=== PATIENT | male | born 1950 | race Caucasian/White ===

== ENCOUNTER → 2017-02-25 | Outpatient (CLI) | payer MEDICARE ==
[2017-02-25 15:49] VITALS: BP 137/72; PULSE 89; RESP 20; TEMP 99.6; BMI 43.0
--- NOTE | 2017-02-25 16:16 | P.HPBAR ---
Bariatric H&P - History & Physicial H&P Date: 02/25/17 History & Physicial: Visit/CC: wants lap band Patient initial contact: Initial weight: 132.993 kg Initial weight in pounds: 293.20 Height: 5 ft 9.25 in Initial BMI: 43.0 Last weight: Current weight: 132.993 kg Current weight in pounds: 293.20 Current BMI: 43.0 [place] body weight (based on NIH guidelines): 73.255 kg Excess body weight loss: 0.0% The patient is a 66 year-old M who presents for Bariatric Assessment. Patient here today as a new patient bariatric evaluation. He went to a recent seminar. He was initially interested in the lap band area he has tried a variety of different weight loss programs. More recently he is considering the sleeve gastrectomy. The patient suffers from arthritis chronic back pain and hypertension hypercholesterolemia and type 2 diabetes. The patient has a history of cardiac cath with stent placement. No history of DVT or dysphagia in the past. Review of Systems The patient denies any acute changes in vision or hearing, no dysphagia or odynophagia, no chest pain or shortness of breath, no dysuria or hematuria, no headache, no runny nose, no rectal bleeding or melena, no unexplained weight loss Past Medical History Past Medical History: Hypertension, Osteoarthritis (OA) Additional Past Medical History / Comment(s): L4-5 chronic arthritis History of Any Multi-Drug Resistant Organisms: None Reported Past Surgical History: Appendectomy Additional Past Surgical History / Comment(s): appendectomy at age 16, cardiac stents x2 placed in 2012, colonoscopy October 2016 Past Anesthesia/Blood Transfusion Reactions: No Reported Reaction Past Psychological History: No Psychological Hx Reported Smoking Status: Former smoker Past Alcohol Use History: Rare Past Drug Use History: None Reported Surgical - Exam Vital Signs Temp Pulse Resp BP 99.6 F 89 20 137/72 02/25/17 15:44 02/25/17 15:44 02/25/17 15:44 02/25/17 15:44 Physical exam: General: Well-developed, well-nourished HEENT: Normocephalic, sclerae nonicteric Abdomen: Nontender, nondistended Extremities: No edema Neuro: Alert and oriented Bariatric Assessment & Plan (1) Morbid obesity Narrative/Plan: The patient's initially was concerned about the more invasive procedures and was interested in lap band placement however after the patient I discussed the long-term risks he is leaning toward sleeve gastrectomy. He plans to discuss this further with his family and also his primary care physician. He also has a close friend who recently had bariatric surgery outside of town and he is going to talk to that person to see better what procedure they had performed. The patient I will regroup following that. Preoperative cardiac clearance will be required at some point. Status: Acute Bariatric Checklist Checklist: Plan: Checklist: EGD: 1. Hiatal hernia: 2. H. Pylori: HgbA1c: Vitamin D: Smoking: Former smoker Primary care physician referral: Dr Palomares in [place] Psychiat[facility] clearance: Cardiology clearance: Sleep study: Diet journal: VTE risk score: VTE risk level: Rehab needs at discharge:
== END | disposition home or self-care (01) ==
LOC: BARWHC3 15:30
PROVIDERS: ATTEND Surgery
DX: Z48.815 Encounter for surgical aftercare following surgery on the digestive system (principal); E66.01 Morbid (severe) obesity due to excess calories; Z87.891 Personal history of nicotine dependence; Z98.84 Bariatric surgery status
CPT/HCPCS: 99201

== ENCOUNTER → 2017-05-25 | Outpatient (CLI) | payer MEDICARE ==
[2017-05-25 16:31] LABS: CH 28.9; CHCM 30.7; HCT 47.3 % (39.0-53.0); HDW 2.72; HGB 14.9 gm/dL (13.0-17.5); Hypochromasia Moderate; MCH 29.9 pg (25.0-35.0); MCHC 31.6 g/dL (31.0-37.0); MCV 94.7 fL (80.0-100.0); Mean Platelet Volume 7.1; RBC 4.99 m/uL (4.30-5.90); RDW 14.8 % (11.5-15.5); WBC 11.3 k/uL (3.8-10.6)
[2017-05-25 16:53] LABS: Anion Gap 12 mmol/L; Blood Urea Nitrogen 34 mg/dL (9-20); Carbon Dioxide 25 mmol/L (22-30); Chloride 101 mmol/L (98-107); Non-African American GFR(MDRD) >60 (>60 ml/min/1.73 sqM); Potassium 5.5 mmol/L (3.5-5.1); Sodium 138 mmol/L (137-145)
== END | disposition home or self-care (01) ==
LOC: LABPAT 16:03
PROVIDERS: ATTEND Internal Medicine Cardiovascular Disease
DX: Z01.812 Encounter for preprocedural laboratory examination (principal); I25.10 Atherosclerotic heart disease of native coronary artery without angina pectoris
CPT/HCPCS: 36415; 80051; 82565; 84520; 85027; 86850; 86900; 86901; 86920; 93923

== ENCOUNTER 2017-05-26 06:22 | Day surgery (SDC) | payer MEDICARE ==
[2017-05-26] MEDS ORDERED: ASPIRIN 325 MG TAB PO STA (06:27)
[2017-05-26] MEDS ORDERED: ATORVASTATIN 80 MG TAB PO STA (06:27)
[2017-05-26] MEDS ORDERED: NITROGLYCERIN SL TABS 0.4 MG TAB SUBLINGUAL PRN (06:27)
[2017-05-26] MEDS ORDERED: ALPRAZolam 0.5 MG TAB PO PRN (06:27)
[2017-05-26] MEDS ORDERED: ALPRAZolam 0.25 MG TAB PO PRN (06:27)
[2017-05-26] MEDS ORDERED: SODIUM CHLORIDE 0.9% 1,000 ML in EMPTY BAG 1 BAG IV ONE (06:27)
[2017-05-26] MEDS ORDERED: IV FLUID CONTINUATION 1,000 ML IV ONE (07:23)
[2017-05-26] MEDS ORDERED: fentaNYL (PF) 50 MCG/ML 2 ML AMP ONE (07:34)
[2017-05-26] MEDS ORDERED: MIDAZOLAM 2 MG/2 ML VIAL ONE (07:34)
[2017-05-26] MEDS ORDERED: ASPIRIN 325 MG TAB ONE (07:35)
[2017-05-26] MEDS ORDERED: diphenhydrAMINE 50 MG/ML 1 ML VIAL ONE (07:37)
[2017-05-26] MEDS ORDERED: ASPIRIN 325 MG TAB PO ONE (07:38)
[2017-05-26] MEDS ORDERED: diphenhydrAMINE 50 MG/ML 1 ML VIAL IVP ONE (07:40)
[2017-05-26] MEDS ORDERED: LIDOCAINE 2% INJ 20 MG/ML SQ ONE (07:41)
[2017-05-26] MEDS ORDERED: MIDAZOLAM 2 MG/2 ML VIAL IV ONE (07:41)
[2017-05-26] MEDS ORDERED: IODIXANOL 320 MG/ML 100 ML INTRAARTER ONE (08:00)
[2017-05-26 08:07] LABS: Potassium 5.1 mmol/L (3.5-5.1)
[2017-05-26] MEDS ORDERED: RX INFO: IV CONTRAST WAS GIVEN 1 EACH MISC MISCELLANE PRN (08:12)
[2017-05-26] MEDS ORDERED: SODIUM CHLORIDE 0.9% 1,000 ML IV SCH (08:15)
[2017-05-26 08:49] VITALS: RESP 18
[2017-05-26] MEDS: INSULIN LISPRO (humaLOG) 300 UNIT/3 ML VIAL SQ SCH ×2 (08:53→14:07)
[2017-05-26 09:06] LABS: Glucose,Whole Blood 294 mg/dL (75-99)
--- NOTE | 2017-05-26 09:10 | LTR ---
DATE OF SERVICE: 05/26/2017 RE: Blas Heredia Dear Dr. Palomares; I performed cardiac catheterization on Blas Heredia. The detail catheterization note is enclosed for your records. In brief, the cardiac catheterization reveals 3-vessel coronary artery disease and patient will be referred to bypass surgery. Thank you for giving us the privilege to participate in this pleasant gentleman. Sincerely, Tate EVANS / TIEN: [id number] /
--- NOTE | 2017-05-26 09:10 | CC ---
CARDIAC CATHETERIZATION REPORT CARDIAC CATHETERIZATION: INDICATION: Unstable angina. This is a 67-year-old gentleman with history of coronary artery disease, status post angioplasty of right coronary artery in 2013 who presented to me yesterday with symptoms of unstable angina. EKG was normal. Echo showed normal LV systolic function. I advised him to undergo cardiac catheterization and brought him in this morning. Patient had been explained of risks, benefits and alternatives, understood and accepted. His creatinine is normal but BUN is elevated. The potassium is 5.5. We hydrated him through cardiac cath. His potassium elevation may be related to the lisinopril or could be due to hemolysis. I repeated the labs this morning. PROCEDURE NOTE: After obtaining informed consent, left heart catheterization and coronary angiogram and LV gram are performed via the right femoral artery using standard Coty catheters. A femoral angiogram was performed and decision was made for manual hemostasis secondary to extensive atherosclerotic plaque in the common femoral artery. FINDINGS: 1. HEMODYNAMICS: Left ventricular end-diastolic pressure is 12 mm. There is no significant gradient across aortic valve. 2. LEFT VENTRICULOGRAM: Left ventriculogram is performed in TINAJERO position. Shows normal left ventricular size and systolic function with an ejection fraction of 65%. 3. ANGIOGRAPHIC DATA:. 4. LEFT MAIN CORONARY ARTERY: Left main coronary artery appears calcified as are all the 3 coronaries but is free of significant stenosis. Divides into circumflex coronary artery and left anterior descending coronary artery. 5. Circumflex coronary artery is subtotally occluded in its proximal part. 6. LAD which is diffusely diseased shows a 70% stenosis in its mid portion and there is a 70% stenosis involving the large diagonal branch. 7. Right coronary artery is a large dominant vessel but it appears heavily calcified and shows diffuse multiple ectatic lesions. At its worst, there is an 80% to 90% stenosis in the distal RCA and just as it bifurcates into PDA and PLV. CONCLUSION: 1. Three vessel coronary artery disease as described above. 2. Normal left ventricular systolic function. PLAN: I have asked Dr. Desai, the cardiothoracic surgeon, to evaluate the patient and advise on bypass surgery. The patient is to undergo bypass surgery tomorrow. Will keep him here. If not, will discharge him home and bring him back. Patient is currently on a beta claudette, nitrates. I will put him on an aspirin and statin. I am going to hold the lisinopril that he is currently on because of the hyperkalemia. MMODL / IJN: [id number] /
[2017-05-26] MEDS ORDERED: MD COMMUNICATION TO PHARMACY 1 EACH MISC PO ONE (09:23)
--- NOTE | 2017-05-26 10:16 | CC ---
CARDIAC CATHETERIZATION REPORT ADDENDUM: Patient received moderate conscious sedation. Total sedation time was 25 minutes. MMODL / IJN: [id number] /
[2017-05-26 10:29] LABS: INR 1.1 (<1.2); Partial Thromboplastin Time 23.5 sec (22.0-30.0); Prothrombin Time 10.9 sec (9.0-12.0)
[2017-05-26 10:36] LABS: ALT 33 U/L (21-72); AST 15 U/L (17-59); Alkaline Phosphatase 64 U/L (38-126); Anion Gap 9 mmol/L; Blood Urea Nitrogen 32 mg/dL (9-20); Calcium 9.9 mg/dL (8.4-10.2); Carbon Dioxide 26 mmol/L (22-30); Chloride 100 mmol/L (98-107); Glucose 325 mg/dL (74-99); Non-African American GFR(MDRD) >60 (>60 ml/min/1.73 sqM); Potassium 5.1 mmol/L (3.5-5.1); Sodium 135 mmol/L (137-145); Total Bilirubin 0.4 mg/dL (0.2-1.3); Total Protein 7.4 g/dL (6.3-8.2)
[2017-05-26 11:23] LABS: Appearance,Urine Clear (Clear); Bilirubin,Urine Negative (Negative); Glucose,Urine (UA) 4+ (Negative); Ketones,Urine Negative (Negative); Leukocyte Esterase,Urine Negative (Negative); Nitrite,Urine Negative (Negative); PH, Urine 5.5 (5.0-8.0); Protein,Urine Negative (Negative); Specific Gravity,Urine 1.038 (1.001-1.035); UA Billing (MACRO vs. MICRO) CHEM; Urobilinogen,Urine <2.0 mg/dL (<2.0)
--- NOTE | 2017-05-26 11:47 | P.GSCN ---
<Palmira Phipps - Last Filed: 05/26/17 11:23> History of Present Illness Consult date: 05/26/17 Reason for Consult: Coronary artery disease, recommendations for surgical revascularization. Requesting physician: Tate Sarmiento History of present illness: This 67-year-old gentleman with a past medical history of coronary artery disease with previous stent placement, hypertension, type 2 diabetes, COPD, remote smoking history, obesity, and strong family history of coronary artery disease presented to Dr. Sarmiento's office after noticing a recent increase in exertional chest pain relieved with sublingual nitro. He was scheduled for heart catheterization this morning which demonstrated the left anterior descending artery with diffuse disease with 70% stenosis in the midportion and 70% stenosis in a large diagonal branch, proximal circumflex artery with subtotal occlusion, and a heavily calcified right coronary artery with an 80-90 % stenosis in the distal RCA. Dr. Desai was asked to consult regarding the possibility of surgical revascularization. Review of Systems 14 point review systems was completed and was negative except as noted. - Constitutional Constitutional Comment(s): Patient is actively trying to lose weight, previously was 315 pounds, down to 289 pounds currently. Prior to these episodes of chest pain the patient was actively pursuing possible gastric bypass surgery. Reports weight loss - Cardiovascular Reports as per HPI, Reports chest pain - Allergic/Immunologic Reports seasonal allergies Past Medical History Past Medical History: Asthma, Coronary Artery Disease (CAD), Hypertension, Myocardial Infarction (CT), Osteoarthritis (OA) Additional Past Medical History / Comment(s): L4-5 chronic arthritis History of Any Multi-Drug Resistant Organisms: None Reported Past Surgical History: Appendectomy, Heart Catheterization With Stent Additional Past Surgical History / Comment(s): appendectomy at age 16, cardiac stents x2 placed in 2012, colonoscopy October 2016 Past Anesthesia/Blood Transfusion Reactions: No Reported Reaction Past Psychological History: No Psychological Hx Reported Smoking Status: Former smoker Past Alcohol Use History: Rare Past Drug Use History: None Reported - Past Family History Father Family Medical History: Coronary Artery Disease (CAD) Medications and Allergies Home Medications Medication Instructions Recorded Confirmed Type Atorvastatin [Lipitor] 10 mg PO DAILY 05/27/17 05/31/17 History Metoprolol Tartrate [Lopressor] 50 mg PO DAILY 05/27/17 05/31/17 History Nitroglycerin Sl Tabs [Nitrostat] 0.4 mg SUBLINGUAL Q5M PRN 05/27/17 05/31/17 History Umeclidinium Brm/Vilanterol Tr 1 puff INHALATION RT-DAILY 05/27/17 05/31/17 History [Anoro Ellipta 62.5-25 Mcg INH] Mupirocin 2% Nasal Oint [Bactroban 1 applic NASAL BID 05/28/17 05/31/17 History 2% Nasal Oint] Aspirin [Adult Low Dose Aspirin EC] 81 mg PO ONCE 05/31/17 05/31/17 History Isosorbide Mononitrate ER [Imdur] 30 mg PO DAILY 05/31/17 05/31/17 History Allergies Allergy/AdvReac Type Severity Reaction Status Date / Time Penicillins Allergy Rash/Hives Verified 05/31/17 05:59 Sulfa (Sulfonamide Allergy Rash/Hives Verified 05/31/17 05:59 Antibiotics) tetracycline Allergy Rash/Hives Verified 05/31/17 05:59 aspirin AdvReac Rash/Hives Verified 05/31/17 05:59 Surgical - Exam Vital Signs Pulse Resp BP Pulse Ox 68 16 136/79 96 05/26/17 06:55 05/26/17 06:55 05/26/17 06:55 05/26/17 06:55 - General well developed, well nourished, no distress, obese - Eyes PERRL, normal ocular movement - ENT no hearing loss - Neck no masses, no bruits, trachea midline - Respiratory normal expansion, normal respiratory effort, clear to auscultation - Cardiovascular Normal sinus rhythm on telemetry. Palpable pulses bilaterally. No edema present. No varicosities noted. Rhythm: regular Heart Sounds: normal: S1, S2 - Abdomen Abdomen: soft, non tender, bowel sounds - Genitourinary Deferred - Rectum Deferred - Integumentary no rash, no growths - Neurologic normal coordination, normal sensation - Psychiatric oriented to time, oriented to person, oriented to place, speech is normal, memory intact Results - Labs 05/26/17 09:55 Abnormal Lab Results - Last 24 Hours (Table) 05/26/17 05/26/17 05/26/17 Range/Units 07:00 08:47 09:55 Sodium 135 L (137-145) mmol/L BUN 32 H (9-20) mg/dL Glucose 325 H (74-99) mg/dL POC Glucose (mg/dL) 294 H (75-99) mg/dL AST 15 L (17-59) U/L Triglycerides 470 H (<150) mg/dL Cholesterol 216 H (<200) mg/dL HDL Cholesterol 32 L (40-60) mg/dL Diabetes panel 05/26/17 05/26/17 Range/Units 07:00 09:55 Sodium 135 L (137-145) mmol/L Potassium 5.1 5.1 (3.5-5.1) mmol/L Chloride 100 (98-107) mmol/L Carbon Dioxide 26 (22-30) mmol/L BUN 32 H (9-20) mg/dL Creatinine 0.96 (0.66-1.25) mg/dL Glucose 325 H (74-99) mg/dL Calcium 9.9 (8.4-10.2) mg/dL AST 15 L (17-59) U/L ALT 33 (21-72) U/L Alkaline Phosphatase 64 (38-126) U/L Total Protein 7.4 (6.3-8.2) g/dL Albumin 3.8 (3.5-5.0) g/dL Triglycerides 470 H (<150) mg/dL HDL Cholesterol 32 L (40-60) mg/dL Thyroid panel 05/26/17 Range/Units 09:55 TSH 0.871 (0.465-4.680) mIU/L Calcium panel 05/26/17 Range/Units 09:55 Calcium 9.9 (8.4-10.2) mg/dL Albumin 3.8 (3.5-5.0) g/dL Pituitary panel 05/26/17 05/26/17 Range/Units 07:00 09:55 Sodium 135 L (137-145) mmol/L Potassium 5.1 5.1 (3.5-5.1) mmol/L Chloride 100 (98-107) mmol/L Carbon Dioxide 26 (22-30) mmol/L BUN 32 H (9-20) mg/dL Creatinine 0.96 (0.66-1.25) mg/dL Glucose 325 H (74-99) mg/dL Calcium 9.9 (8.4-10.2) mg/dL TSH 0.871 (0.465-4.680) mIU/L Adrenal panel 05/26/17 05/26/17 Range/Units 07:00 09:55 Sodium 135 L (137-145) mmol/L Potassium 5.1 5.1 (3.5-5.1) mmol/L Chloride 100 (98-107) mmol/L Carbon Dioxide 26 (22-30) mmol/L BUN 32 H (9-20) mg/dL Creatinine 0.96 (0.66-1.25) mg/dL Glucose 325 H (74-99) mg/dL Calcium 9.9 (8.4-10.2) mg/dL Total Bilirubin 0.4 (0.2-1.3) mg/dL AST 15 L (17-59) U/L ALT 33 (21-72) U/L Alkaline Phosphatase 64 (38-126) U/L Total Protein 7.4 (6.3-8.2) g/dL Albumin 3.8 (3.5-5.0) g/dL - Imaging Chest x-ray: pending CT scan - chest: pending Additional studies: Cardiac catheterization films reviewed. Assessment and Plan (1) Coronary artery disease Status: Acute (2) Hypertension Status: Acute (3) Type 2 diabetes mellitus Status: Acute (4) Tobacco dependence in remission Status: Acute (5) Family history of coronary artery disease Status: Acute (6) Morbid obesity Status: Acute Plan: The patient was seen and examined with Dr. Desai in the Extended Stay Unit. Chart/diagnostics were reviewed. Cardiac catheterization films were reviewed with Dr. Sarmiento. Preoperative testing was ordered. Preoperative teaching was initiated. The patient is recommended to undergo coronary artery bypass graft surgery. All risks and benefits were explained in detail to the patient and his and they agreed to proceed with surgery. The patient will be discharged home from the Extended Stay Unit today after preoperative testing is completed, he is to undergo carotid Dopplers trauma Dr. Sarmiento's office, we will obtain the echo report from Dr. Sarmiento's office which was completed yesterday, and the plan at this time is for him to return to the hospital on Wednesday, 2016 for coronary artery bypass graft surgery. Recommend aspirin, statin, beta claudette upon discharge home today. Thank you Dr. Sarmiento for this consult. We look forward to working to the care of your patient. Time with Patient: Greater than 30 <Habib,Delvis - Last Filed: 05/31/17 17:05> Surgical - Exam Vital Signs Pulse Resp BP Pulse Ox 68 16 136/79 96 05/26/17 06:55 05/26/17 06:55 05/26/17 06:55 05/26/17 06:55 Results - Labs 05/26/17 09:55 Assessment and Plan Plan: The patient was seen and examined. I agree with the above assessment and plan. The patient is a 67-year-old male with a history of coronary artery disease who had a coronary stent in the past. He presents now with recurrent chest pain with activity. Cardiac catheterization revealed multivessel coronary artery disease. A coronary artery bypass was recommended. The risks, benefits , and alternatives to this procedure were discussed with the patient and his . All of their questions were answered. We will complete his necessary preoperative workup. He'll be discharged home today with plans for surgery on May 31.
[2017-05-26] MEDS ORDERED: HYDROmorphone 0.5 MG/0.5 ML SYRINGE IVP STA (11:51)
[2017-05-26] MEDS ORDERED: HYDROmorphone 0.5 MG/0.5 ML SYRINGE IVP ONE (11:55)
[2017-05-26 13:17] LABS: Hemoglobin A1C 10.1 % (4.2-6.1)
--- NOTE | 2017-05-26 14:01 | XR ---
EXAMINATION TYPE: XR chest 2V DATE OF EXAM: 05/26/2017 COMPARISON: NONE HISTORY: Preop for cardiac surgery. TECHNIQUE: Frontal and lateral views of the chest are obtained. FINDINGS: There is no focal air space opacity, pleural effusion, or pneumothorax seen. Flattening of the diaphragms on the lateral image may relate to degree of inspiration versus underlying pulmonary emphysema. Bridging osteophytes are seen of the thoracic spine, sequela of mild to moderate degenerat al disc disease. The cardiac silhouette size is upper limits of normal. The osseous structures are intact. IMPRESSION: No acute cardiopulmonary process.
[2017-05-26 14:25] LABS: Glucose,Whole Blood 323 mg/dL (75-99)
--- NOTE | 2017-05-26 14:37 | CT ---
EXAMINATION TYPE: CT chest wo con DATE OF EXAM: 05/26/2017 COMPARISON: NONE HISTORY: 67-year-old male Preoperative cardiac surgery TECHNIQUE: Contiguous axial scanning of the chest without IV contrast. Coronal and sagittal reconstru ctions performed. CT DLP: 1259.30 mGycm Automated exposure control for dose reduction was used. FINDINGS: The heart is normal size with trace pericardial fluid. Extensive coronary vessel calcifications are p resent. Ascending aorta is ectatic at 3.8 cm. Conventional arch vessel branching anatomy. Mild atheroscleroti c arch calcifications. Upper descending thoracic aorta is mildly aneurysmal at 3.3 cm. Lower descendi ng thoracic aorta is ectatic at 2.6 cm. Large caliber to the main right and left pulmonary arteries at 3.0 and 2.8 cm, respectively, suggesti ng underlying pulmonary arterial hypertension. No thoracic lymphadenopathy by CT size criteria. A 5 mm pulmonary nodule anterior right lower lung along the major fissure is a somewhat triangular ap pearance. Strandy atelectasis or scarring at the inferior lingula. No consolidation or pleural effusi on. Visualized upper abdomen shows low attenuation of the hepatic parenchyma and a couple hypodense lesio ns in the left kidney measuring up to 3.1 cm suggestive of cysts. Mild diverticulosis of the visualiz ed left hemicolon. Possible renal calculi or vascular calcifications in the visualized kidneys. Bones: Bridging anterior endplate spondylosis suggestive of DISH in the mid to lower thoracic spine. IMPRESSION: 1. ECTATIC THORACIC AORTA (ASCENDING 3.8 CM AND DESCENDING 3.3 CM). 2. CAD. 3. POSSIBLE UNDERLYING PULMONARY ARTERIAL HYPERTENSION. CLINICALLY CORRELATE. 4. A 5 MM PULMONARY NODULE ALONG THE MINOR FISSURE MAY REPRESENT A SUBPLEURAL LYMPH NODE GIVEN TRIANG ULAR APPEARANCE. A ONE-YEAR FOLLOW-UP CAN BE CONSIDERED.
[2017-05-26 14:55] VITALS: PULSE 77
[2017-05-26 17:16] VITALS: BP 130/70
[2017-05-27] MEDS ORDERED: ATORVASTATIN 40 MG TAB PO SCH (09:00)
--- NOTE | 2017-06-02 14:05 | P.VSCSTY ---
Greater Saphenous Vein Mapping This is bilateral lower extremity greater saphenous vein mapping. Date of service 05/26/2017 Vein quality and ultrasound appearance the vein at the right mid calf and below shows severe intimal thickening. Vein size groin right 6.6 x 5.8 groin left 1.1 x 6.9 High thigh right 6.7 x 5.6 high thigh left 6.8 x 5.8 Mid thigh right 4.3 x 3.7 mid thigh left 3.6 x 3.6 Above-knee right 4.5 x 3.6 above- knee left 3.8 x 3.3 Below knee right 3.3 x 3.6 below-knee left 4.1 x 3.6 Mid calf right [] mid calf left 4.1 x 2.7 Ankle right [] ankle left 2.0 x 3.3. Impression usable greater saphenous vein in the left leg throughout and in the right leg to just below the knee. Would not use any of the lower leg vein on the right..
--- NOTE | 2017-06-02 14:07 | P.ARTDOP ---
Arterial Doppler Bilateral radial artery studies: Doppler waveforms show no significant right to left or segmental gradients. On digital plethysmography with radial artery compression we find significant bilateral gradients. 66 mmHg Imaging shows them to be of excellent size. Radial artery is not usable secondary to inadequate collateralization.
== END 2017-05-26 17:00 | disposition home or self-care (01) ==
LOC: CATHCVL 06:22
PROVIDERS: ATTEND Internal Medicine Cardiovascular Disease
DX: I25.110 Atherosclerotic heart disease of native coronary artery with unstable angina pectoris (principal); I25.84 Coronary atherosclerosis due to calcified coronary lesion; I10 Essential (primary) hypertension; Z01.818 Encounter for other preprocedural examination; I70.201 Unspecified atherosclerosis of native arteries of extremities, right leg; E11.9 Type 2 diabetes mellitus without complications; E66.01 Morbid (severe) obesity due to excess calories; Z68.41 Body mass index [BMI] 40.0-44.9, adult; E78.2 Mixed hyperlipidemia; I77.810 Thoracic aortic ectasia; R91.1 Solitary pulmonary nodule; I25.2 Old myocardial infarction; Z95.5 Presence of coronary angioplasty implant and graft; Z82.49 Family history of ischemic heart disease and other diseases of the circulatory system; Z87.891 Personal history of nicotine dependence; Z79.82 Long term (current) use of aspirin; Z79.899 Other long term (current) drug therapy; Z88.6 Allergy status to analgesic agent; Z88.0 Allergy status to penicillin; Z88.2 Allergy status to sulfonamides; Z88.1 Allergy status to other antibiotic agents
CPT/HCPCS: 99152; 99153; 94150; 93458; 83880; 80061; 80053; 80074; 84443; 83036; 83735; 84132; 85610; 85730; 81003; 87070; 87086; 71020; 93930; 93970; 71250; C1894; C1769; J2001; J2250; J1200; Q9967; J1170; 86850; 86900; 86901; 86920

== ENCOUNTER 2017-05-31 05:36 | Inpatient (IN) | payer MEDICARE ==
[~2017-05-31 05:36] MED LIST: ALBUMIN HUMAN 25% 50 ML IV ONE; ALBUMIN HUMAN 5% 500 ML IVPB ONE; ATORVASTATIN 10 MG TAB PO ONE; CALCIUM CHLORIDE 100 MG/ML 10 ML SYRINGE IV ONE; CHLORHEXIDINE GLUCONATE 15 ML CUP MUCOUS MEM ONE; CLEVIDIPINE BUTYRATE 25 MG in EMPTY BAG 1 BAG IV ONE; DEXTROSE 5% IN WATER 1,000 ML with POTASSIUM CHLORIDE 110 MEQ, MAGNESIUM SULFATE 16 MEQ... IV ONE; DEXTROSE 5% IN WATER 1,000 ML with POTASSIUM CHLORIDE 25 MEQ, SODIUM CHLORIDE 4MEQ/ML V... IV ONE; DILTIAZEM 125 MG in SODIUM CHLORIDE 0.9% 100 ML IV ONE; HEPARIN SODIUM 1,000 UN/ML (10ML VL) IV ONE; HEPARIN SODIUM,PORCINE 5,000 UNIT in SODIUM CHLORIDE 0.9% 500 ML IV ONE; INSULIN REGULAR 100 UNIT in SODIUM CHLORIDE 0.9% 100 ML IV ONE; LACTATED RINGERS 1,000 ML IV ONE; MAGNESIUM SULFATE MG 500 MG/ML VIAL IV ONE; MANNITOL 25% 12.5 GM/50 ML VIAL IV ONE; METOPROLOL TARTRATE 12.5 MG TAB PO ONE; MUPIROCIN 2% OINT 22 GM TUBE NASAL ONE; NITROGLYCERIN SL TABS 0.4 MG TAB SUBLINGUAL ONE; NITROGLYCERIN-D5W PMX 25 MG/250 ML BTL IV ONE; NITROGLYCERIN-D5W PMX 50 MG in DEXTROSE/WATER 1 250ML.BAG IV ONE; NOREPINEPHRIN 4 MG-0.9% NS PMX 4 MG/250 ML ML IV ONE; PAPAVERINE 360 MG in SODIUM CHLORIDE 0.9% 90 ML IV ONE; PHENYLEPHRINE 40 MG in SODIUM CHLORIDE 0.9% 250 ML IV ONE; PHENYLEPHRINE-0.9% NACL SYG 1 MG/10 ML SYRINGE IV ONE; PROPOFOL 1,000 MG/100 ML VIAL IV ONE; PROTAMINE SULFATE 10 MG/ML 25 ML VIAL IV ONE; PROTAMINE SULFATE 250 MG in EMPTY BAG 1 BAG IV ONE; Pre Op ABX Message 1 EACH MISC MISCELLANE ONE; SODIUM BICARB 8.4% 50 ML SYR (1 MEQ/ML) IV ONE; SODIUM CHLORIDE 0.9% 1,000 ML IV ONE; TRANEXAMIC ACID 2,000 MG in SODIUM CHLORIDE 0.9% 180 ML IV ONE; ceFAZolin 1,000 MG in SODIUM CHLORIDE 0.9% IRRIGATIO 1,000 ML IRRIGATION ONE; ceFAZolin 2,000 MG in SODIUM CHLORIDE 0.9% 30 ML IVPB ONE; ceFAZolin 3 GM in SODIUM CHLORIDE 0.9% 30 ML IVPB ONE
[2017-05-31 06:18] LABS: Glucose,Whole Blood 233 mg/dL (75-99)
[2017-05-31] MEDS ORDERED: MAGNESIUM SULFATE 4 MEQ/ML 2 ML VIAL ONE (08:08)
[2017-05-31] MEDS ORDERED: fentaNYL (PF) 50 MCG/ML 50 ML VIAL ONE (08:08)
[2017-05-31] MEDS ORDERED: PROTAMINE SULFATE 10 MG/ML 25 ML VIAL IV ONE (08:08)
[2017-05-31] MEDS ORDERED: SUCCINYLCHOLINE CHLORIDE VIAL 200 MG/10 ML VIAL IV ONE (08:08)
[2017-05-31] MEDS ORDERED: HEPARIN SODIUM,PORCINE 5,000 UNIT/ML 1 ML VIAL ONE (08:08)
[2017-05-31] MEDS ORDERED: SODIUM CHLORIDE 0.9% IRRIG 1,000 ML BTL IRRIGATION ONE (08:08)
[2017-05-31] MEDS ORDERED: PROPOFOL 10 MG/ML 20 ML VIAL IV ONE (08:08)
[2017-05-31] MEDS ORDERED: fentaNYL (PF) 50 MCG/ML 2 ML AMP ONE (08:08)
[2017-05-31] MEDS ORDERED: PHENYLEPHRINE-0.9% NACL SYG 1 MG/10 ML SYRINGE ONE (08:08)
[2017-05-31] MEDS ORDERED: ELECTROLYTE-R (PH 7.4) 1,000 ML IV.SOLN IV ONE (08:08)
[2017-05-31] MEDS ORDERED: HEPARIN SODIUM,PORCINE 10,000 UNIT/ML 1 ML VIAL ONE (08:08)
[2017-05-31] MEDS ORDERED: SODIUM CHLORIDE 0.9% 250 ML BAG ONE (08:08)
[2017-05-31] MEDS ORDERED: MIDAZOLAM 2 MG/2 ML VIAL ONE (08:08)
[2017-05-31] MEDS ORDERED: TRANEXAMIC ACID 1,000 MG/10 ML VIAL ONE (08:08)
[2017-05-31] MEDS ORDERED: VECURONIUM 10 MG VIAL IV ONE (08:08)
[2017-05-31] MEDS ORDERED: SUFentanil 50 MCG/ML 2ML AMP ONE (08:08)
[2017-05-31 09:20] LABS: Glucose,Whole Blood 214 mg/dL (75-99)
[2017-05-31 10:24] LABS: Glucose,Whole Blood 230 mg/dL (75-99)
[2017-05-31 11:37] LABS: Glucose,Whole Blood 201 mg/dL (75-99)
[2017-05-31 11:37] LABS: Glucose,Whole Blood 241 mg/dL (75-99)
[2017-05-31 11:52] LABS: Glucose,Whole Blood 252 mg/dL (75-99)
[2017-05-31 12:36] LABS: Glucose,Whole Blood 229 mg/dL (75-99)
[2017-05-31 12:57] LABS: Glucose,Whole Blood 233 mg/dL (75-99)
[2017-05-31 14:06] LABS: Glucose,Whole Blood 214 mg/dL (75-99)
[2017-05-31 14:51] LABS: Glucose,Whole Blood 139 mg/dL (75-99)
[2017-05-31] MEDS ORDERED: METOCLOPRAMIDE 5 MG/ML 2 ML VIAL IVP PRN (15:06)
[2017-05-31] MEDS ORDERED: Magnesium Replacement Protocol 1 EACH MISC MISCELLANE PRN (15:06)
[2017-05-31] MEDS ORDERED: BENZOCAINE/MENTHOL LOZENG 1 EACH LOZENGE MUCOUS MEM PRN (15:06)
[2017-05-31] MEDS ORDERED: NITROGLYCERIN-D5W PMX 50 MG in DEXTROSE/WATER 1 250ML.BAG IV SCH (15:06)
[2017-05-31] MEDS ORDERED: CALCIUM GLUCONATE 2,000 MG in SODIUM CHLORIDE 0.9% 100 ML IVPB PRN (15:06)
[2017-05-31] MEDS ORDERED: Potassium Replacement Protocol 1 EACH MISC MISCELLANE PRN (15:06)
[2017-05-31] MEDS ORDERED: ALBUMIN HUMAN 5% 250 ML in EMPTY BAG 1 BAG IVPB PRN (15:06)
[2017-05-31] MEDS ORDERED: ONDANSETRON 4 MG/2 ML VIAL IVP PRN (15:06)
[2017-05-31] MEDS ORDERED: Phosphorus Replacement Protoco 1 EACH MISC MISCELLANE PRN (15:06)
[2017-05-31] MEDS: IPRATROPIUM-ALBUTEROL 3 ML NEB INHALATION SCH ×4 (15:46→23:21)
[2017-05-31 16:29] LABS: Glucose,Whole Blood 106 mg/dL (75-99)
[2017-05-31 16:35] LABS: Basophils # (A) 0.1 k/uL (0-0.2); Basophils % (A) 0 %; CH 29.2; CHCM 30.6; Eosinophils # (A) 0.1 k/uL (0-0.7); Eosinophils % (A) 1 %; HCT 42.8 % (39.0-53.0); HDW 2.76; HGB 13.4 gm/dL (13.0-17.5); Hypochromasia Moderate; Luc # (Auto) 0.22; Luc % (Auto) 1; Lymphocytes # (A) 2.1 k/uL (1.0-4.8); Lymphocytes % (A) 12 %; MCH 30.2 pg (25.0-35.0); MCHC 31.4 g/dL (31.0-37.0); MCV 96.1 fL (80.0-100.0); Mean Platelet Volume 7.2; Monocytes # (A) 0.9 k/uL (0-1.0); Monocytes % (A) 5 %; Neutrophils # (A) 14.9 k/uL (1.3-7.7); Neutrophils % (A) 81 %; RBC 4.45 m/uL (4.30-5.90); RDW 15.1 % (11.5-15.5); WBC 18.3 k/uL (3.8-10.6); WBC (Perox) 19.05
[2017-05-31 16:38] LABS: Ionized Calcium 5.2 mg/dL (4.5-5.3)
[2017-05-31 16:42] LABS: INR 1.2 (<1.2); Partial Thromboplastin Time 25.4 sec (22.0-30.0); Prothrombin Time 11.9 sec (9.0-12.0)
[2017-05-31 16:45] LABS: ALT 30 U/L (21-72); AST 42 U/L (17-59); Alkaline Phosphatase 39 U/L (38-126); Anion Gap 6 mmol/L; Blood Urea Nitrogen 18 mg/dL (9-20); Calcium 8.1 mg/dL (8.4-10.2); Carbon Dioxide 24 mmol/L (22-30); Chloride 109 mmol/L (98-107); Glucose 108 mg/dL (74-99); Magnesium 2.3 mg/dL (1.6-2.3); Non-African American GFR(MDRD) >60 (>60 ml/min/1.73 sqM); Potassium 4.4 mmol/L (3.5-5.1); Sodium 139 mmol/L (137-145); Total Bilirubin 0.5 mg/dL (0.2-1.3); Total Protein 5.2 g/dL (6.3-8.2)
[2017-05-31 16:48] LABS: ABG HCO3 24 mmol/L (21-25); ABG Oxygen Saturation 96.4 % (94-97); ABG PCO2 55 mmHg (35-45); ABG PH 7.27 (7.35-7.45); ABG PO2 98 mmHg (83-108); ABG TCO2 26 mmol/L (19-24)
--- NOTE | 2017-05-31 16:50 | P.CNPUL ---
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 He had a cardiac catheterization that showed diffuse disease in the LAD with 70% stenosis in the midportion 70% stenosis in the large diagonal branch proximal circumflex occlusion and a heavily calcified right coronary artery with a 80-90% stenosis in the distal RCA. The patient was referred to CT surgery and the patient underwent four- vessel bypass surgery today. Currently is postop. He still intubated on a mechanical ventilator. His sedated with Diprivan. He is an assist-control mode of ventilation with a rate of 12, tidal volume of 700, FiO2 of 100% and a PEEP of 5. The chest x-ray and a blood gas are still pending for now. Meanwhile, hemodynamically the patient is doing well. He is hypertensive and he will be started on Celebrex drip for blood pressure control. His cardiac output is at 8.1 with an index of 3.2. He has mediastinal chest tube and left pleural chest tube. Cardiac rhythm is sinus and he has a backup pacemaker. His blood sugar is at 106. He is currently on insulin drip for blood sugar control. No other significant events . Producing adequate amount of urine output. His peak pressures around 24. As I'm dictating, the blood gases arrived at pH of 7.27 with a pCO2 of 54 and pO2 of 98. I made recommendations to increase the tidal volume to 750 and increase the respiratory rate up to 20. His FiO2 will be gradually wean down as tolerated to maintain a saturation above 92%. Review of Systems ROS unobtainable: due to endotracheal tube Past Medical History Past Medical History: Chest Pain / Angina, COPD, Diabetes Mellitus, Hypertension , Myocardial Infarction ([place]), Osteoarthritis (OA) Additional Past Medical History / Comment(s): Coronary artery disease, obesity, diabetes mellitus, hypertension, osteoarthritis, L4-L5 degenerative disc disease Last Myocardial Infarction Date:: 2012 History of Any Multi-Drug Resistant Organisms: None Reported Past Surgical History: Appendectomy, Heart Catheterization With Stent Additional Past Surgical History / Comment(s): appendectomy at age 16, cardiac stents x2, recent cardiac cath. Past Anesthesia/Blood Transfusion Reactions: No Reported Reaction Date of Last Stent Placement:: 2012 Smoking Status: Former smoker - Past Family History Father Family Medical History: Coronary Artery Disease (CAD) Medications and Allergies Home Medications Medication Instructions Recorded Confirmed Type Atorvastatin [Lipitor] 10 mg PO DAILY 05/27/17 05/31/17 History Metoprolol Tartrate [Lopressor] 50 mg PO DAILY 05/27/17 05/31/17 History Nitroglycerin Sl Tabs [Nitrostat] 0.4 mg SUBLINGUAL Q5M PRN 05/27/17 05/31/17 History Umeclidinium Brm/Vilanterol Tr 1 puff INHALATION RT-DAILY 05/27/17 05/31/17 History [Anoro Ellipta 62.5-25 Mcg INH] Mupirocin 2% Nasal Oint [Bactroban 1 applic NASAL BID 05/28/17 05/31/17 History 2% Nasal Oint] Aspirin [Adult Low Dose Aspirin EC] 81 mg PO ONCE 05/31/17 05/31/17 History Isosorbide Mononitrate ER [Imdur] 30 mg PO DAILY 05/31/17 05/31/17 History Allergies Allergy/AdvReac Type Severity Reaction Status Date / Time Penicillins Allergy Rash/Hives Verified 05/31/17 05:59 Sulfa (Sulfonamide Allergy Rash/Hives Verified 05/31/17 05:59 Antibiotics) tetracycline Allergy Rash/Hives Verified 05/31/17 05:59 aspirin AdvReac Rash/Hives Verified 05/31/17 05:59 Physical Exam Vitals: Vital Signs Temp Pulse Resp BP Pulse Ox 05/31/17 06:10 98.2 F 86 16 146/67 92 L Intake and Output 05/31/17 05/31/17 05/31/17 06:59 14:59 22:59 Intake Total 32 Output Total 5100 Balance 32 -5100 Intake: IV 32 Output: Urine 1600 Estimated Blood Loss 3500 Other: Weight 132.9 kg Gen. appearance the patient is sedated and calm and comfortable likely distress. His get an orogastric and orotracheal tube in place. He also has a right IJ [place]-Kevin catheter in place.Head exam was generally normal. There was no scleral icterus or corneal arcus. Mucous membranes were moist.Neck was supple and without jugular venous distension, thyromegaly, or carotid bruits. Carotids were easily palpable bilaterally. There was no adenopathy. Lung sounds are diminished and there are clear. Sternum stable clean and intact. The patient is a mediastinal and the left pleural chest tube.Cardiac exam revealed the PMI to be normally situated and sized. The rhythm was regular and no extrasystoles were noted during several minutes of auscultation. The first and second heart sounds were normal and physiologic splitting of the second heart sound was noted. There were no murmurs, rubs, clicks, or gallops.Abdominal exam revealed normal bowel sounds. The abdomen was soft, non- tender, and without masses, organomegaly, or appreciable enlargement of the abdominal aorta.Examination of the extremities revealed easily palpable radial, femoral and pedal pulses. There was no cyanosis, clubbing or edema. Skin examination shows clear and dry wound sites without evidence of any bleeding or saturation of the dressing. Pulses are equal and symmetrical. Neurologically the patient is sedated and is calm and comfortable. Results - Laboratory Findings CBC and BMP: 05/31/17 16:25 Abnormal lab findings: Abnormal Labs 05/26/17 05/31/17 05/31/17 09:55 06:14 09:05 WBC Neutrophils # POC Glucose (mg/dL) 233 H 214 H Crossmatch See Detail 05/31/17 05/31/17 05/31/17 10:21 11:13 11:34 WBC Neutrophils # POC Glucose (mg/dL) 230 H 201 H 241 H Crossmatch 05/31/17 05/31/17 05/31/17 11:49 12:22 12:54 WBC Neutrophils # POC Glucose (mg/dL) 252 H 229 H 233 H Crossmatch 05/31/17 05/31/17 05/31/17 13:29 14:48 16:25 WBC 18.3 H Neutrophils # 14.9 H POC Glucose (mg/dL) 214 H 139 H Crossmatch 05/31/17 16:27 WBC Neutrophils # POC Glucose (mg/dL) 106 H Crossmatch Assessment and Plan Plan: Assessment 1 multivessel coronary artery disease and the patient is post CABG with 4 vessel bypass involving DAY to LAD and saphenous vein graft to PDA, PLB and diagonal 2 post thoracotomy. The patient remains intubated on a mechanical ventilator. 3 diabetes mellitus currently on insulin drip for blood sugar control 4 obesity 5 COPD 6 hypertension 7 hyperlipidemia Plan Patient is hemodynamically stable. The patient is currently still intubated on a mechanical ventilator. The blood gas was noted. Awaiting a chest x-ray. The necessary vent changes will be done. Increase tidal volume to 750. Increase the rate up to 20. Gradually wean down the FiO2. Gradually wean this patient and I anticipate extubation within the next 6 hours if circumstances tolerate. Monitor the output from the chest tube. Cleviprex for blood pressure control. Insulin drip for blood sugar control. Bronchodilators. We will follow.
[2017-05-31] MEDS ORDERED: hydrALAZINE HCL 20 MG/ML 1 ML VIAL ONE (16:53)
[2017-05-31] MEDS: CLEVIDIPINE BUTYRATE 25 MG in EMPTY BAG 1 BAG IV SCH ×2 (17:03→18:01)
[2017-05-31] MEDS: MORPHINE SULFATE 2 MG/ML SYRINGE IVP PRN ×2 (17:03→21:09)
[2017-05-31] MEDS ORDERED: hydrALAZINE HCL 20 MG/ML 1 ML VIAL IVP STA (17:05)
--- NOTE | 2017-05-31 17:34 | XR ---
EXAMINATION TYPE: XR chest 1V portable DATE OF EXAM: 05/31/2017 COMPARISON: 05/26/2017 HISTORY: Cardiac surgery TECHNIQUE: Single frontal view of the chest is obtained. FINDINGS: Exam is limited by underexposure. There is a right jugular catheter with tip probably in t he main pulmonary artery. Endotracheal tube appears in good position. There is nasogastric tube there is atelectasis in the left midlung. I see no pneumothorax. There is left-sided chest tube. There is no gross heart failure. IMPRESSION: Patchy atelectasis on the left side. No heart failure seen.
--- NOTE | 2017-05-31 17:36 | OP ---
OPERATIVE REPORT DATE OF SURGERY: 05/31/2017. PREOP DIAGNOSIS: 1. Coronary artery disease. 2. Angina. POSTOP DIAGNOSIS: 1. Coronary artery disease. 2. Angina. PROCEDURE: 1. Coronary artery bypass grafting x4 vessels (left internal mammary artery to left anterior descending artery, saphenous vein graft to diagonal artery, saphenous vein graft to posterior descending artery, saphenous vein graft to posterior lateral branch of the right coronary artery). 2. Endoscopic vein harvest bilateral greater saphenous vein. 3. Epiaortic ultrasound. 4. Transesophageal echocardiogram. 5. Closure of sternum using tritium plating system. SURGEON: Delvis Desai MD. FUNNEL SETTER: 1. ANNE-MARIE Noel. 2. ANNE-MARIE Chambers. ANESTHESIA: General. SPECIMENS: None. COMPLICATIONS: None. 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 A stress test was abnormal. Cardiac catheterization revealed multivessel coronary disease. Coronary artery bypass is recommended. The risks, benefits, and alternatives to this procedure were discussed with the patient. All questions answered. Consent was obtained. FINDINGS: The left anterior descending artery measured 1.5 mm. The diagonal artery measured 1.5 mm. The PDA measured 1.3 mm. The PLV measured 1.3 mm. The obtuse marginal artery was too small for bypass. The left internal mammary artery was good caliber vessel. Saphenous vein was an adequate conduit. It was sclerotic and thickened. PROCEDURE IN DETAIL: The patient was taken to the operating room and placed supine on the operating table. After induction of general anesthesia, he was prepped and draped in the usual sterile fashion. Preoperative transesophageal echocardiogram revealed normal left ventricular ejection fraction and mild mitral regurgitation. A median sternotomy was performed. The left internal mammary artery was harvested in the standard fashion taking care to clip all branches. Intravenous heparin was administered and the vessel and was transected distally revealing brisk flow. The mammary artery was a good conduit. Simultaneously greater saphenous vein was harvested from the right lower extremity. All branches were tied. Below the knee the vein became quite small. Above the knee the vein was sclerotic and thickened. Additional vein was harvested from the left thigh using endoscopic technique. This vein was adequate for use but again was thickened and sclerotic. A pericardial cradle was created. The ascending aorta was palpated. There was some plaque noted in the aortic arch but the ascending aorta felt essentially normal. Epiaortic ultrasound was then performed. There was no calcific disease noted in the ascending aorta. An arterial cannula was then placed through the ascending aorta. A venous cannula was placed through the right atrial appendage direct to the IVC. Both antegrade and retrograde catheters were placed as well. The patient was then placed on cardiopulmonary bypass with good decompression of the heart. Aortic cross clamp was applied. Cold blood potassium cardioplegia was delivered to achieve arrest of the heart. Of note, cardioplegia was delivered every 15-20 minutes while the patient remained under crossclamp. We began by inspecting the inferior wall. The right coronary artery was identified. It was a calcific pipe. The posterior descending artery was then identified. It was softer to touch and a spot amenable for bypass was chosen. A small arteriotomy was created. This vessel accepted a 1 mm probe. Using saphenous vein in a reverse fashion, an end-to-side anastomosis was created. This was performed using a running 7-0 Prolene suture. The graft was hemostatic and had good flow. Next the lateral wall suspected. I did find what appeared to be the obtuse marginal artery branch. This vessel was extremely thin-walled and small in diameter. I did not feel that it was amenable to bypass. Next, the posterior lateral branch of the right coronary artery was identified. A small arteriotomy was made. It was amenable to bypass. A small arteriotomy was created. This also accepted a 1 mm probe. Using saphenous vein in a reverse fashion, an end-to-side anastomosis created. This was performed using running 7-0 Prolene suture. The graft was hemostatic and had good flow. Next the diagonal artery was identified. It was dissected free and appeared to be amenable for bypass. A small arteriotomy was created. This vessel accepted a 1.5 mm probe. Using saphenous vein in a reverse fashion, an end-to-side anastomosis was created. This was performed using a running 7-0 Prolene suture. The graft was hemostatic and had good flow. Finally the LAD was identified in the mid portion of the heart. A small arteriotomy was created. This also accepted a 1.5 mm probe. Using the left internal mammary artery, an end-to-side anastomosis was created. This was performed using a running 8-0 Prolene suture. The graft was hemostatic. The mammary pedicle was then tacked down to the anterior surface of the heart. Attention was then turned to the proximal anastomoses. The anastomosis to the PDA and diagonal artery were both performed in an end-to-side fashion using running 6-0 Prolene sutures. The vein graft to the posterior lateral branch of right coronary artery was not long enough to reach the aorta. For this reason, I brought it off the vein graft to the posterior descending artery. The proximal anastomosis was performed in an end- to-side fashion, [id number] using running 7-0 Prolene suture. The anastomosis was hemostatic. Lidocaine and magnesium were administered. The aortic cross-clamp was removed. The retrograde catheter was removed. Temporary atrial ventricular pacing wires were placed and brought through the skin. The patient had spontaneous return of normal sinus rhythm. He from cardiopulmonary bypass without difficulty. Followup transesophageal echocardiogram again confirmed good wall motion of the left ventricle with preserved ejection fraction. There was no change in the mild mitral regurgitation. Protamine was administered. There were no adverse reactions. The remainder of the cannulas were then removed. The mediastinum was copiously irrigated with warm saline solution. All surgical sites were inspected and appeared hemostatic. Additional reinforcement sutures were placed as needed. Of note, the entire surgery was somewhat difficult given the patient's morbid obesity. Soft tissues were reapproximated over the ascending aorta as well as over the apex of the heart. A straight 32-[place] chest tube was placed and directed into the left pleural space. Two additional straight 32-[place] chest tubes were placed and directed into the mediastinum. These were all secured to the skin using sutures. Given the patient's morbid obesity, I elected to close the sternum using titanium plates. Using the tritium plating system, the sternum was reapproximated with plates and screws as well as a [id number] cables. At the completion of the closure, the sternum was well approximated. The remainder of the wound was closed in layers. A sterile dressing was applied. The patient appeared to have tolerated the procedure well. There were no immediate complications. He returned to the ICU in critical, but stable condition. MMODL / IJN: [id number] / [facility]
[2017-05-31 17:46] LABS: ABG Base Excess -2.5 mmol/L; ABG HCO3 23 mmol/L (21-25); ABG PCO2 45 mmHg (35-45); ABG PH 7.32 (7.35-7.45); ABG PO2 60 mmHg (83-108); ABG TCO2 24 mmol/L (19-24)
[2017-05-31 17:47] LABS: ABG Oxygen Saturation 88.7 % (94-97)
[2017-05-31 17:48] LABS: Glucose,Whole Blood 225 mg/dL (75-99)
[2017-05-31] MEDS: LACTATED RINGERS 1,000 ML IV SCH (18:01)
[2017-05-31] MEDS: ACETAMINOPHEN IV (For NPO) 1,000 MG in EMPTY BAG 1 BAG IVPB SCH (18:01)
[2017-05-31] MEDS: PROPOFOL 1,000 MG/100 ML VIAL IV SCH ×2 (18:02→21:11)
[2017-05-31] MEDS: ceFAZolin 3 GM in SODIUM CHLORIDE 0.9% 100 ML IVPB SCH (18:04)
[2017-05-31] MEDS: INSULIN REGULAR 100 UNIT in SODIUM CHLORIDE 0.9% 100 ML IV SCH (18:21)
[2017-05-31 18:31] LABS: ABG Base Excess -3.4 mmol/L; ABG HCO3 21 mmol/L (21-25); ABG Oxygen Saturation 89.5 % (94-97); ABG PCO2 40 mmHg (35-45); ABG PH 7.35 (7.35-7.45); ABG PO2 60 mmHg (83-108); ABG TCO2 23 mmol/L (19-24)
[2017-05-31 18:43] LABS: Glucose,Whole Blood 256 mg/dL (75-99)
[2017-05-31 18:57] LABS: Basophils # (A) 0.1 k/uL (0-0.2); Basophils % (A) 0 %; CHCM 31.8; Eosinophils # (A) 0.1 k/uL (0-0.7); Eosinophils % (A) 0 %; HCT 42.6 % (39.0-53.0); HDW 2.86; HGB 13.4 gm/dL (13.0-17.5); Luc # (Auto) 0.15; Luc % (Auto) 1; Lymphocytes # (A) 1.4 k/uL (1.0-4.8); Lymphocytes % (A) 7 %; MCH 29.9 pg (25.0-35.0); MCHC 31.5 g/dL (31.0-37.0); MCV 95.1 fL (80.0-100.0); Mean Platelet Volume 7.6; Monocytes # (A) 0.9 k/uL (0-1.0); Monocytes % (A) 4 %; Neutrophils # (A) 17.6 k/uL (1.3-7.7); Neutrophils % (A) 87 %; RBC 4.48 m/uL (4.30-5.90); WBC 20.2 k/uL (3.8-10.6)
[2017-05-31 19:55] LABS: Glucose,Whole Blood 247 mg/dL (75-99)
[2017-05-31 19:56] LABS: ABG Base Excess -1.5 mmol/L; ABG HCO3 23 mmol/L (21-25); ABG PCO2 43 mmHg (35-45); ABG PH 7.36 (7.35-7.45); ABG PO2 125 mmHg (83-108); ABG TCO2 26 mmol/L (19-24)
[2017-05-31 20:40] LABS: Glucose,Whole Blood 206 mg/dL (75-99)
[2017-05-31 21:08] LABS: Glucose,Whole Blood 197 mg/dL (75-99)
[2017-05-31 21:59] LABS: Glucose,Whole Blood 196 mg/dL (75-99)
[2017-05-31 22:09] LABS: Anisocytosis Slight; Basophils # (A) 0.1 k/uL (0-0.2); Basophils % (A) 0 %; CH 30.1; CHCM 31.7; Eosinophils # (A) 0.1 k/uL (0-0.7); Eosinophils % (A) 0 %; HCT 41.2 % (39.0-53.0); HDW 2.81; HGB 12.8 gm/dL (13.0-17.5); Luc # (Auto) 0.12; Luc % (Auto) 1; Lymphocytes # (A) 0.6 k/uL (1.0-4.8); Lymphocytes % (A) 4 %; MCH 29.7 pg (25.0-35.0); MCHC 31.1 g/dL (31.0-37.0); MCV 95.7 fL (80.0-100.0); Mean Platelet Volume 7.6; Monocytes # (A) 0.8 k/uL (0-1.0); Monocytes % (A) 4 %; Neutrophils # (A) 16.6 k/uL (1.3-7.7); Neutrophils % (A) 91 %; RDW 16.2 % (11.5-15.5); WBC 18.2 k/uL (3.8-10.6); WBC (Perox) 19.56
[2017-05-31 22:22] LABS: Anion Gap 6 mmol/L; Blood Urea Nitrogen 19 mg/dL (9-20); Calcium 8.3 mg/dL (8.4-10.2); Carbon Dioxide 23 mmol/L (22-30); Chloride 107 mmol/L (98-107); Glucose 209 mg/dL (74-99); INR 1.2 (<1.2); Non-African American GFR(MDRD) >60 (>60 ml/min/1.73 sqM); Partial Thromboplastin Time 24.8 sec (22.0-30.0); Potassium 5.8 mmol/L (3.5-5.1); Prothrombin Time 11.6 sec (9.0-12.0); Sodium 136 mmol/L (137-145)
[2017-05-31 23:00] LABS: ABG HCO3 24 mmol/L (21-25); ABG PCO2 45 mmHg (35-45); ABG PH 7.35 (7.35-7.45); ABG PO2 117 mmHg (83-108); ABG TCO2 25 mmol/L (19-24)
[2017-05-31 23:01] LABS: Glucose,Whole Blood 206 mg/dL (75-99)
[2017-06-01 00:06] LABS: Glucose,Whole Blood 208 mg/dL (75-99)
[2017-06-01] MEDS: MORPHINE SULFATE 2 MG/ML SYRINGE IVP PRN ×5 (00:40→22:12)
[2017-06-01] MEDS: HEPARIN SODIUM,PORCINE 5,000 UNIT/ML 1 ML VIAL SQ SCH ×3 (00:41→16:03)
[2017-06-01 00:58] LABS: Glucose,Whole Blood 201 mg/dL (75-99)
[2017-06-01] MEDS: PROPOFOL 1,000 MG/100 ML VIAL IV SCH ×6 (01:40→21:15)
[2017-06-01 02:02] LABS: Glucose,Whole Blood 192 mg/dL (75-99)
[2017-06-01 03:08] LABS: Glucose,Whole Blood 160 mg/dL (75-99)
[2017-06-01] MEDS: IPRATROPIUM-ALBUTEROL 3 ML NEB INHALATION SCH ×6 (03:41→23:45)
[2017-06-01 04:30] LABS: Glucose,Whole Blood 182 mg/dL (75-99)
[2017-06-01] MEDS: INSULIN REGULAR 100 UNIT in SODIUM CHLORIDE 0.9% 100 ML IV SCH ×2 (04:36→14:27)
[2017-06-01 05:07] LABS: Basophils % (A) 0 %; CH 28.9; CHCM 30.2; Eosinophils % (A) 0 %; HCT 40.8 % (39.0-53.0); HDW 2.74; HGB 12.8 gm/dL (13.0-17.5); Hypochromasia Marked; Luc # (Auto) 0.16; Luc % (Auto) 1; Lymphocytes # (A) 0.9 k/uL (1.0-4.8); Lymphocytes % (A) 6 %; MCH 30.1 pg (25.0-35.0); MCHC 31.2 g/dL (31.0-37.0); MCV 96.3 fL (80.0-100.0); Mean Platelet Volume 7.3; Monocytes # (A) 0.7 k/uL (0-1.0); Monocytes % (A) 4 %; Neutrophils # (A) 13.2 k/uL (1.3-7.7); Neutrophils % (A) 88 %; RBC 4.24 m/uL (4.30-5.90); RDW 15.2 % (11.5-15.5); WBC 14.9 k/uL (3.8-10.6); WBC (Perox) 15.22
[2017-06-01 05:31] LABS: ABG Base Excess -0.2 mmol/L; ABG HCO3 25 mmol/L (21-25); ABG PCO2 44 mmHg (35-45); ABG PH 7.36 (7.35-7.45); ABG PO2 106 mmHg (83-108); ABG TCO2 26 mmol/L (19-24)
[2017-06-01 05:35] LABS: Ionized Calcium 4.8 mg/dL (4.5-5.3)
[2017-06-01 05:37] LABS: Glucose,Whole Blood 169 mg/dL (75-99)
[2017-06-01 05:40] LABS: ALT 32 U/L (21-72); AST 37 U/L (17-59); Alkaline Phosphatase 45 U/L (38-126); Anion Gap 7 mmol/L; Blood Urea Nitrogen 19 mg/dL (9-20); Calcium 8.2 mg/dL (8.4-10.2); Carbon Dioxide 22 mmol/L (22-30); Chloride 108 mmol/L (98-107); Glucose 182 mg/dL (74-99); Magnesium 2.1 mg/dL (1.6-2.3); Non-African American GFR(MDRD) >60 (>60 ml/min/1.73 sqM); Potassium 5.4 mmol/L (3.5-5.1); Sodium 137 mmol/L (137-145); Total Bilirubin 0.3 mg/dL (0.2-1.3); Total Protein 5.1 g/dL (6.3-8.2)
[2017-06-01] MEDS: ESMOLOL IN SODIUM CHLORIDE PMX 2.5 GM in SALINE 1 250ML.BAG IV SCH ×2 (05:50→07:29)
[2017-06-01 05:54] LABS: INR 1.2 (<1.2); Prothrombin Time 11.8 sec (9.0-12.0)
[2017-06-01 06:41] LABS: Glucose,Whole Blood 169 mg/dL (75-99)
--- NOTE | 2017-06-01 06:58 | XR ---
EXAMINATION TYPE: XR chest 1V portable DATE OF EXAM: 06/01/2017 CLINICAL HISTORY: Difficulty breathing progress study. Post open cardiac surgery. TECHNIQUE: Single AP portable semiupright view of the chest is obtained. COMPARISON: Chest x-ray from one day earlier FINDINGS: An endotracheal and orogastric tube are stable in appearance. 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 There is stable left-sided chest tube. Sternal wires and mediastinal c lips are present. Cardiac silhouette size is stable and within normal limits. There is improvement in central vascular congestion seen. There is chronic parenchymal change with patchy left basilar atelectasis and/or infi ltrate redemonstrated. No large pleural effusion or pneumothorax is seen bilaterally. Osseous structu res are intact. IMPRESSION: Improving central vascular congestion noted. There is patchy left basilar atelectasis and /or infiltrate redemonstrated. There is redemonstration of left-sided chest tube without sizable pneu mothorax.
[2017-06-01] MEDS: ACETAMINOPHEN IV (For NPO) 1,000 MG in EMPTY BAG 1 BAG IVPB SCH ×4 (07:10→17:45)
[2017-06-01 08:17] LABS: Glucose,Whole Blood 183 mg/dL (75-99)
[2017-06-01] MEDS ORDERED: FUROSEMIDE 10 MG/ML 4 ML VIAL IV STA (08:26)
--- NOTE | 2017-06-01 08:26 | P.PN ---
<Palmira Phipps - Last Filed: 06/01/17 08:00> Subjective Progress Note Date: 06/01/17 Principal diagnosis: Symptomatic coronary artery disease. History of previous myocardial infarction, CAD with stent placement in 2012. Hypertension. Hyperlipidemia. Uncontrolled type 2 diabetes mellitus with hemoglobin A1c 10.1%. COPD. Remote smoking history. Morbid obesity. Strong family history of coronary artery disease. Osteoarthritis. POD #1 coronary artery bypass grafting 4 vessels, left internal mammary artery to left anterior descending artery, reverse saphenous vein graft to diagonal artery, reverse saphenous vein graft to posterior descending artery, reverse saphenous vein graft to posterior lateral branch of the right coronary artery. Endoscopic vein harvest bilateral greater saphenous vein. Epi-aortic ultrasound. Intraoperative transesophageal echocardiogram. Closure of the sternum using Tritium plating system. The patient is currently sedated on mechanical ventilation. Does open eyes and follows commands. Objective - Vital Signs Vital signs: Vital Signs Temp 99.9 F H 05/31/17 17:45 Pulse 90 06/01/17 07:27 Resp 22 06/01/17 07:00 BP 127/72 06/01/17 07:00 Pulse Ox 96 06/01/17 07:00 Intake & Output 05/31/17 06/01/17 06/01/17 18:59 06:59 18:59 Intake Total 335.346 7667.649 180.533 Output Total 6375 1535 110 Balance -6090.100 -182.351 70.533 Weight 132.9 kg 136.5 kg Intake: IV 282 859 159 0.9NaCl 159 9 ACETAMINOPHEN IV (For NPO 100 ) 1,000 mg In Empty Bag 1 bag @ 400 mls/hr IVPB Q6HR [facility] Rx#:[id number] Lactated Ringers 1,000 ml 150 600 50 @ 50 mls/hr IV .Q20H [facility] Rx#:[id number] ceFAZolin 3 gm In Sodium 100 100 Chloride 0.9% 30 ml @ Per Protocol IVPB ONCE ONE Rx#:[id number] Intake, IV Titration 2.900 493.649 21.533 Amount Albumin Human 5% 250 ml 100 In Empty Bag 1 bag @ 250 mls/hr IVPB Q1HR PRN Rx#: [id number] Clevidipine Butyrate 25 2.900 15 mg In Empty Bag 1 bag @ 1 MG/HR 2 mls/hr IV .Q24H [facility] Rx#:[id number] Insulin Regular 100 unit 78.649 21.533 In Sodium Chloride 0.9% 100 ml @ Per Protocol IV .Q0M [facility] Rx#:[id number] Propofol 1,000 mg In 100 300 ml @ Titrate IV .Q0M [facility] Rx#:[id number] Output: Chest Tube Drainage 170 163 10 Chest Tube Bilateral 60 133 10 Mediastinal Chest Tube Left Lateral 110 30 Chest Drainage 0 120 Left Calf 0 80 Right Calf 0 40 Urine 2705 1252 100 Estimated Blood Loss 3500 Other: Voiding Method Indwelling Catheter Indwelling Catheter ABP, PAP, CO, CI - Last Documented Arterial Blood Pressure 139/65 Pulmonary Artery Pressure 42/26 Cardiac Output 9 Cardiac Index 2.4 - Constitutional General appearance: Present: cooperative, morbidly obese, no acute distress - Respiratory Details: Lungs sounds diminished bilaterally. Respirations even, nonlabored on mechanical ventilation. Current ventilator settings assist control mode,FiO2 50 %, tidal volume 600, respiratory rate 20, PEEP 15. 8.5 ET tube present, 24 the lip. ABGs this morning demonstrate better oxygenation and then last night. Chest x-ray reviewed, diminished lung volumes present, positive atelectasis. Mediastinal chest tube to -20 cm wall suction, 90 mL serosanguineous drainage overnight, 170 mL since surgery. Left pleural chest tube to -20 cm wall suction , 30 mL serosanguineous drainage overnight, 85 mL since surgery. No air leaks present. - Cardiovascular Details: S1, S2 present. Regular rate and rhythm, normal sinus rhythm on telemetry. A/ V epicardial pacemaker wires present, grounded. Sternum stable. Right internal jugular Cordis/Benld, right radial arterial line present. Palpable pulses bilaterally. No edema present. Heart hugger, antiembolism stockings, SCDs present. - Gastrointestinal Gastrointestinal Comment(s): Abdomen soft, nontender, nondistended. Active bowel sounds 4 quadrants. OG tube present to low intermittent suction. - Genitourinary Genitourinary Comment(s): Ly present draining clear, yellow urine. Output 75-100 mL per hour overnight. - Integumentary Integumentary Comment(s): anterior chest incision well approximated and covered with dry intact dressing. Bilateral lower extremity EVH sites well approximated, MARITZA drains present with minimal drainage. - Neurologic Neurologic Comment(s): Opens eyes to command. Squeezes hands bilaterally and wiggles toes bilaterally to command. - Psychiatric Psychiatric Comment(s): Sedated on mechanical ventilation. - Allied health notes Allied health notes reviewed: nursing - Labs CBC & Chem 7: 06/01/17 04:45 06/01/17 04:45 Labs: Abnormal Lab Results - Last 24 Hours (Table) 05/26/17 05/31/17 05/31/17 Range/Units 09:55 09:05 10:21 WBC (3.8-10.6) k/uL RBC (4.30-5.90) m/uL Hgb (13.0-17.5) gm/dL RDW (11.5-15.5) % Neutrophils # (1.3-7.7) k/uL Lymphocytes # (1.0-4.8) k/uL INR (<1.2) ABG pH (7.35-7.45) ABG pCO2 (35-45) mmHg ABG pO2 (83-108) mmHg ABG Total CO2 (19-24) mmol/L ABG O2 Saturation (94-97) % Sodium (137-145) mmol/L Potassium (3.5-5.1) mmol/L Chloride (98-107) mmol/L Glucose (74-99) mg/dL POC Glucose (mg/dL) 214 H 230 H (75-99) mg/dL Calcium (8.4-10.2) mg/dL Total Protein (6.3-8.2) g/dL Albumin (3.5-5.0) g/dL Crossmatch See Detail 05/31/17 05/31/17 05/31/17 Range/Units 11:13 11:34 11:49 WBC (3.8-10.6) k/uL RBC (4.30-5.90) m/uL Hgb (13.0-17.5) gm/dL RDW (11.5-15.5) % Neutrophils # (1.3-7.7) k/uL Lymphocytes # (1.0-4.8) k/uL INR (<1.2) ABG pH (7.35-7.45) ABG pCO2 (35-45) mmHg ABG pO2 (83-108) mmHg ABG Total CO2 (19-24) mmol/L ABG O2 Saturation (94-97) % Sodium (137-145) mmol/L Potassium (3.5-5.1) mmol/L Chloride (98-107) mmol/L Glucose (74-99) mg/dL POC Glucose (mg/dL) 201 H 241 H 252 H (75-99) mg/dL Calcium (8.4-10.2) mg/dL Total Protein (6.3-8.2) g/dL Albumin (3.5-5.0) g/dL Crossmatch 05/31/17 05/31/17 05/31/17 Range/Units 12:22 12:54 13:29 WBC (3.8-10.6) k/uL RBC (4.30-5.90) m/uL Hgb (13.0-17.5) gm/dL RDW (11.5-15.5) % Neutrophils # (1.3-7.7) k/uL Lymphocytes # (1.0-4.8) k/uL INR (<1.2) ABG pH (7.35-7.45) ABG pCO2 (35-45) mmHg ABG pO2 (83-108) mmHg ABG Total CO2 (19-24) mmol/L ABG O2 Saturation (94-97) % Sodium (137-145) mmol/L Potassium (3.5-5.1) mmol/L Chloride (98-107) mmol/L Glucose (74-99) mg/dL POC Glucose (mg/dL) 229 H 233 H 214 H (75-99) mg/dL Calcium (8.4-10.2) mg/dL Total Protein (6.3-8.2) g/dL Albumin (3.5-5.0) g/dL Crossmatch 05/31/17 05/31/17 05/31/17 Range/Units 14:48 16:25 16:25 WBC 18.3 H (3.8-10.6) k/uL RBC (4.30-5.90) m/uL Hgb (13.0-17.5) gm/dL RDW (11.5-15.5) % Neutrophils # 14.9 H (1.3-7.7) k/uL Lymphocytes # (1.0-4.8) k/uL INR (<1.2) ABG pH (7.35-7.45) ABG pCO2 (35-45) mmHg ABG pO2 (83-108) mmHg ABG Total CO2 (19-24) mmol/L ABG O2 Saturation (94-97) % Sodium (137-145) mmol/L Potassium (3.5-5.1) mmol/L Chloride 109 H (98-107) mmol/L Glucose 108 H (74-99) mg/dL POC Glucose (mg/dL) 139 H (75-99) mg/dL Calcium 8.1 L (8.4-10.2) mg/dL Total Protein 5.2 L (6.3-8.2) g/dL Albumin 2.8 L (3.5-5.0) g/dL Crossmatch 05/31/17 05/31/17 05/31/17 Range/Units 16:25 16:27 16:36 WBC (3.8-10.6) k/uL RBC (4.30-5.90) m/uL Hgb (13.0-17.5) gm/dL RDW (11.5-15.5) % Neutrophils # (1.3-7.7) k/uL Lymphocytes # (1.0-4.8) k/uL INR 1.2 H (<1.2) ABG pH 7.27 L (7.35-7.45) ABG pCO2 55 H (35-45) mmHg ABG pO2 (83-108) mmHg ABG Total CO2 26 H (19-24) mmol/L ABG O2 Saturation (94-97) % Sodium (137-145) mmol/L Potassium (3.5-5.1) mmol/L Chloride (98-107) mmol/L Glucose (74-99) mg/dL POC Glucose (mg/dL) 106 H (75-99) mg/dL Calcium (8.4-10.2) mg/dL Total Protein (6.3-8.2) g/dL Albumin (3.5-5.0) g/dL Crossmatch 05/31/17 05/31/17 05/31/17 Range/Units 17:15 17:44 18:28 WBC (3.8-10.6) k/uL RBC (4.30-5.90) m/uL Hgb (13.0-17.5) gm/dL RDW (11.5-15.5) % Neutrophils # (1.3-7.7) k/uL Lymphocytes # (1.0-4.8) k/uL INR (<1.2) ABG pH 7.32 L (7.35-7.45) ABG pCO2 (35-45) mmHg ABG pO2 60 L 60 L (83-108) mmHg ABG Total CO2 (19-24) mmol/L ABG O2 Saturation 88.7 L 89.5 L (94-97) % Sodium (137-145) mmol/L Potassium (3.5-5.1) mmol/L Chloride (98-107) mmol/L Glucose (74-99) mg/dL POC Glucose (mg/dL) 225 H (75-99) mg/dL Calcium (8.4-10.2) mg/dL Total Protein (6.3-8.2) g/dL Albumin (3.5-5.0) g/dL Crossmatch 05/31/17 05/31/17 05/31/17 Range/Units 18:30 18:40 19:48 WBC 20.2 H (3.8-10.6) k/uL RBC (4.30-5.90) m/uL Hgb (13.0-17.5) gm/dL RDW 16.0 H (11.5-15.5) % Neutrophils # 17.6 H (1.3-7.7) k/uL Lymphocytes # (1.0-4.8) k/uL INR (<1.2) ABG pH (7.35-7.45) ABG pCO2 (35-45) mmHg ABG pO2 (83-108) mmHg ABG Total CO2 (19-24) mmol/L ABG O2 Saturation (94-97) % Sodium (137-145) mmol/L Potassium (3.5-5.1) mmol/L Chloride (98-107) mmol/L Glucose (74-99) mg/dL POC Glucose (mg/dL) 256 H 247 H (75-99) mg/dL Calcium (8.4-10.2) mg/dL Total Protein (6.3-8.2) g/dL Albumin (3.5-5.0) g/dL Crossmatch 05/31/17 05/31/17 05/31/17 Range/Units 19:48 20:38 21:07 WBC (3.8-10.6) k/uL RBC (4.30-5.90) m/uL Hgb (13.0-17.5) gm/dL RDW (11.5-15.5) % Neutrophils # (1.3-7.7) k/uL Lymphocytes # (1.0-4.8) k/uL INR (<1.2) ABG pH (7.35-7.45) ABG pCO2 (35-45) mmHg ABG pO2 125 H (83-108) mmHg ABG Total CO2 26 H (19-24) mmol/L ABG O2 Saturation 99.0 H (94-97) % Sodium (137-145) mmol/L Potassium (3.5-5.1) mmol/L Chloride (98-107) mmol/L Glucose (74-99) mg/dL POC Glucose (mg/dL) 206 H 197 H (75-99) mg/dL Calcium (8.4-10.2) mg/dL Total Protein (6.3-8.2) g/dL Albumin (3.5-5.0) g/dL Crossmatch 05/31/17 05/31/17 05/31/17 Range/Units 21:57 22:00 22:00 WBC 18.2 H (3.8-10.6) k/uL RBC (4.30-5.90) m/uL Hgb 12.8 L (13.0-17.5) gm/dL RDW 16.2 H (11.5-15.5) % Neutrophils # 16.6 H (1.3-7.7) k/uL Lymphocytes # 0.6 L (1.0-4.8) k/uL INR 1.2 H (<1.2) ABG pH (7.35-7.45) ABG pCO2 (35-45) mmHg ABG pO2 (83-108) mmHg ABG Total CO2 (19-24) mmol/L ABG O2 Saturation (94-97) % Sodium (137-145) mmol/L Potassium (3.5-5.1) mmol/L Chloride (98-107) mmol/L Glucose (74-99) mg/dL POC Glucose (mg/dL) 196 H (75-99) mg/dL Calcium (8.4-10.2) mg/dL Total Protein (6.3-8.2) g/dL Albumin (3.5-5.0) g/dL Crossmatch 05/31/17 05/31/17 05/31/17 Range/Units 22:00 22:16 22:59 WBC (3.8-10.6) k/uL RBC (4.30-5.90) m/uL Hgb (13.0-17.5) gm/dL RDW (11.5-15.5) % Neutrophils # (1.3-7.7) k/uL Lymphocytes # (1.0-4.8) k/uL INR (<1.2) ABG pH (7.35-7.45) ABG pCO2 (35-45) mmHg ABG pO2 117 H (83-108) mmHg ABG Total CO2 25 H (19-24) mmol/L ABG O2 Saturation 98.0 H (94-97) % Sodium 136 L (137-145) mmol/L Potassium 5.8 H (3.5-5.1) mmol/L Chloride (98-107) mmol/L Glucose 209 H (74-99) mg/dL POC Glucose (mg/dL) 206 H (75-99) mg/dL Calcium 8.3 L (8.4-10.2) mg/dL Total Protein (6.3-8.2) g/dL Albumin (3.5-5.0) g/dL Crossmatch 05/31/17 06/01/17 06/01/17 Range/Units 23:54 00:50 00:51 WBC (3.8-10.6) k/uL RBC (4.30-5.90) m/uL Hgb (13.0-17.5) gm/dL RDW (11.5-15.5) % Neutrophils # (1.3-7.7) k/uL Lymphocytes # (1.0-4.8) k/uL INR (<1.2) ABG pH (7.35-7.45) ABG pCO2 (35-45) mmHg ABG pO2 (83-108) mmHg ABG Total CO2 (19-24) mmol/L ABG O2 Saturation (94-97) % Sodium (137-145) mmol/L Potassium 5.7 H (3.5-5.1) mmol/L Chloride (98-107) mmol/L Glucose (74-99) mg/dL POC Glucose (mg/dL) 208 H 201 H (75-99) mg/dL Calcium (8.4-10.2) mg/dL Total Protein (6.3-8.2) g/dL Albumin (3.5-5.0) g/dL Crossmatch 06/01/17 06/01/17 06/01/17 Range/Units 02:01 03:04 04:25 WBC (3.8-10.6) k/uL RBC (4.30-5.90) m/uL Hgb (13.0-17.5) gm/dL RDW (11.5-15.5) % Neutrophils # (1.3-7.7) k/uL Lymphocytes # (1.0-4.8) k/uL INR (<1.2) ABG pH (7.35-7.45) ABG pCO2 (35-45) mmHg ABG pO2 (83-108) mmHg ABG Total CO2 (19-24) mmol/L ABG O2 Saturation (94-97) % Sodium (137-145) mmol/L Potassium (3.5-5.1) mmol/L Chloride (98-107) mmol/L Glucose (74-99) mg/dL POC Glucose (mg/dL) 192 H 160 H 182 H (75-99) mg/dL Calcium (8.4-10.2) mg/dL Total Protein (6.3-8.2) g/dL Albumin (3.5-5.0) g/dL Crossmatch 06/01/17 06/01/17 06/01/17 Range/Units 04:45 04:45 04:45 WBC 14.9 H (3.8-10.6) k/uL RBC 4.24 L (4.30-5.90) m/uL Hgb 12.8 L (13.0-17.5) gm/dL RDW (11.5-15.5) % Neutrophils # 13.2 H (1.3-7.7) k/uL Lymphocytes # 0.9 L (1.0-4.8) k/uL INR 1.2 H (<1.2) ABG pH (7.35-7.45) ABG pCO2 (35-45) mmHg ABG pO2 (83-108) mmHg ABG Total CO2 (19-24) mmol/L ABG O2 Saturation (94-97) % Sodium (137-145) mmol/L Potassium 5.4 H (3.5-5.1) mmol/L Chloride 108 H (98-107) mmol/L Glucose 182 H (74-99) mg/dL POC Glucose (mg/dL) (75-99) mg/dL Calcium 8.2 L (8.4-10.2) mg/dL Total Protein 5.1 L (6.3-8.2) g/dL Albumin 2.7 L (3.5-5.0) g/dL Crossmatch 06/01/17 06/01/17 06/01/17 Range/Units 05:10 05:36 06:40 WBC (3.8-10.6) k/uL RBC (4.30-5.90) m/uL Hgb (13.0-17.5) gm/dL RDW (11.5-15.5) % Neutrophils # (1.3-7.7) k/uL Lymphocytes # (1.0-4.8) k/uL INR (<1.2) ABG pH (7.35-7.45) ABG pCO2 (35-45) mmHg ABG pO2 (83-108) mmHg ABG Total CO2 26 H (19-24) mmol/L ABG O2 Saturation 98.0 H (94-97) % Sodium (137-145) mmol/L Potassium (3.5-5.1) mmol/L Chloride (98-107) mmol/L Glucose (74-99) mg/dL POC Glucose (mg/dL) 169 H 169 H (75-99) mg/dL Calcium (8.4-10.2) mg/dL Total Protein (6.3-8.2) g/dL Albumin (3.5-5.0) g/dL Crossmatch - Imaging and Cardiology Chest x-ray: report reviewed, image reviewed Assessment and Plan (1) Hyperlipidemia Status: Acute (2) Previous myocardial infarction older than 8 weeks Status: Acute (3) History of heart artery stent Status: Acute (4) COPD (chronic obstructive pulmonary disease) Status: Acute (5) Coronary artery disease Status: Acute (6) Family history of coronary artery disease Status: Acute (7) Hypertension Status: Acute (8) Morbid obesity Status: Acute (9) Tobacco dependence in remission Status: Acute (10) Type 2 diabetes mellitus Status: Acute Plan: 1. Continue Plavix, statin, heparin subcu, beta claudette. Will maximize beta claudette therapy as tolerated. No aspirin secondary to ALLERGY. 2. Wean mechanical ventilation as tolerated. Ventilator management per pulmonary services. 3. Increase activity when able. Will order physical and occupational therapy. 4. GI/DVT prophylaxis. 5. Insulin management per primary care service. 6. Will monitor daily labs, chest x-rays. 7. More recommendations as patient progresses. Time with Patient: Greater than 30 <Delvis Desai - Last Filed: 06/01/17 10:58> Objective - Vital Signs Vital signs: Vital Signs Temp 99.7 F H 06/01/17 09:00 Pulse 88 06/01/17 09:00 Resp 22 06/01/17 08:00 BP 133/69 06/01/17 09:00 Pulse Ox 95 06/01/17 09:00 Intake & Output 05/31/17 06/01/17 06/01/17 18:59 06:59 18:59 Intake Total 473.824 6474.649 424.866 Output Total 6375 1535 486 Balance -6090.100 -182.351 -61.134 Weight 132.9 kg 136.5 kg 136.5 kg Intake: IV 282 859 277 0.9NaCl 159 9 ACETAMINOPHEN IV (For NPO 100 ) 1,000 mg In Empty Bag 1 bag @ 400 mls/hr IVPB Q6HR [facility] Rx#:[id number] Lactated Ringers 1,000 ml 150 600 130 @ 20 mls/hr IV .Q24H [facility] Rx#:[id number] cardiac output 20 ceFAZolin 3 gm In Sodium 100 100 Chloride 0.9% 30 ml @ Per Protocol IVPB ONCE ONE Rx#:[id number] pressure bag 18 Intake, IV Titration 2.900 493.649 147.866 Amount Albumin Human 5% 250 ml 100 In Empty Bag 1 bag @ 250 mls/hr IVPB Q1HR PRN Rx#: [id number] Clevidipine Butyrate 25 2.900 15 mg In Empty Bag 1 bag @ 1 MG/HR 2 mls/hr IV .Q24H [facility] Rx#:[id number] Insulin Regular 100 unit 78.649 47.866 In Sodium Chloride 0.9% 100 ml @ Per Protocol IV .Q0M [facility] Rx#:[id number] Propofol 1,000 mg In 100 300 100.000 ml @ Titrate IV .Q0M [facility] Rx#:[id number] Output: Chest Tube Drainage 170 163 31 Chest Tube Bilateral 60 133 31 Mediastinal Chest Tube Left Lateral 110 30 0 Chest Drainage 0 120 15 Left Calf 0 80 10 Right Calf 0 40 5 Urine 2705 1252 440 Estimated Blood Loss 3500 Other: Voiding Method Indwelling Catheter Indwelling Catheter Indwelling Catheter ABP, PAP, CO, CI - Last Documented Arterial Blood Pressure 153/81 Pulmonary Artery Pressure 43/27 Cardiac Output 7.6 Cardiac Index 3.0 - Labs CBC & Chem 7: 06/01/17 04:45 06/01/17 04:45 Labs: Abnormal Lab Results - Last 24 Hours (Table) 05/26/17 05/31/17 05/31/17 Range/Units 09:55 11:13 11:34 WBC (3.8-10.6) k/uL RBC (4.30-5.90) m/uL Hgb (13.0-17.5) gm/dL RDW (11.5-15.5) % Neutrophils # (1.3-7.7) k/uL Lymphocytes # (1.0-4.8) k/uL INR (<1.2) ABG pH (7.35-7.45) ABG pCO2 (35-45) mmHg ABG pO2 (83-108) mmHg ABG Total CO2 (19-24) mmol/L ABG O2 Saturation (94-97) % Sodium (137-145) mmol/L Potassium (3.5-5.1) mmol/L Chloride (98-107) mmol/L Glucose (74-99) mg/dL POC Glucose (mg/dL) 201 H 241 H (75-99) mg/dL Calcium (8.4-10.2) mg/dL Total Protein (6.3-8.2) g/dL Albumin (3.5-5.0) g/dL Crossmatch See Detail 05/31/17 05/31/17 05/31/17 Range/Units 11:49 12:22 12:54 WBC (3.8-10.6) k/uL RBC (4.30-5.90) m/uL Hgb (13.0-17.5) gm/dL RDW (11.5-15.5) % Neutrophils # (1.3-7.7) k/uL Lymphocytes # (1.0-4.8) k/uL INR (<1.2) ABG pH (7.35-7.45) ABG pCO2 (35-45) mmHg ABG pO2 (83-108) mmHg ABG Total CO2 (19-24) mmol/L ABG O2 Saturation (94-97) % Sodium (137-145) mmol/L Potassium (3.5-5.1) mmol/L Chloride (98-107) mmol/L Glucose (74-99) mg/dL POC Glucose (mg/dL) 252 H 229 H 233 H (75-99) mg/dL Calcium (8.4-10.2) mg/dL Total Protein (6.3-8.2) g/dL Albumin (3.5-5.0) g/dL Crossmatch 05/31/17 05/31/17 05/31/17 Range/Units 13:29 14:48 16:25 WBC 18.3 H (3.8-10.6) k/uL RBC (4.30-5.90) m/uL Hgb (13.0-17.5) gm/dL RDW (11.5-15.5) % Neutrophils # 14.9 H (1.3-7.7) k/uL Lymphocytes # (1.0-4.8) k/uL INR (<1.2) ABG pH (7.35-7.45) ABG pCO2 (35-45) mmHg ABG pO2 (83-108) mmHg ABG Total CO2 (19-24) mmol/L ABG O2 Saturation (94-97) % Sodium (137-145) mmol/L Potassium (3.5-5.1) mmol/L Chloride (98-107) mmol/L Glucose (74-99) mg/dL POC Glucose (mg/dL) 214 H 139 H (75-99) mg/dL Calcium (8.4-10.2) mg/dL Total Protein (6.3-8.2) g/dL Albumin (3.5-5.0) g/dL Crossmatch 05/31/17 05/31/17 05/31/17 Range/Units 16:25 16:25 16:27 WBC (3.8-10.6) k/uL RBC (4.30-5.90) m/uL Hgb (13.0-17.5) gm/dL RDW (11.5-15.5) % Neutrophils # (1.3-7.7) k/uL Lymphocytes # (1.0-4.8) k/uL INR 1.2 H (<1.2) ABG pH (7.35-7.45) ABG pCO2 (35-45) mmHg ABG pO2 (83-108) mmHg ABG Total CO2 (19-24) mmol/L ABG O2 Saturation (94-97) % Sodium (137-145) mmol/L Potassium (3.5-5.1) mmol/L Chloride 109 H (98-107) mmol/L Glucose 108 H (74-99) mg/dL POC Glucose (mg/dL) 106 H (75-99) mg/dL Calcium 8.1 L (8.4-10.2) mg/dL Total Protein 5.2 L (6.3-8.2) g/dL Albumin 2.8 L (3.5-5.0) g/dL Crossmatch 05/31/17 05/31/17 05/31/17 Range/Units 16:36 17:15 17:44 WBC (3.8-10.6) k/uL RBC (4.30-5.90) m/uL Hgb (13.0-17.5) gm/dL RDW (11.5-15.5) % Neutrophils # (1.3-7.7) k/uL Lymphocytes # (1.0-4.8) k/uL INR (<1.2) ABG pH 7.27 L 7.32 L (7.35-7.45) ABG pCO2 55 H (35-45) mmHg ABG pO2 60 L (83-108) mmHg ABG Total CO2 26 H (19-24) mmol/L ABG O2 Saturation 88.7 L (94-97) % Sodium (137-145) mmol/L Potassium (3.5-5.1) mmol/L Chloride (98-107) mmol/L Glucose (74-99) mg/dL POC Glucose (mg/dL) 225 H (75-99) mg/dL Calcium (8.4-10.2) mg/dL Total Protein (6.3-8.2) g/dL Albumin (3.5-5.0) g/dL Crossmatch 05/31/17 05/31/17 05/31/17 Range/Units 18:28 18:30 18:40 WBC 20.2 H (3.8-10.6) k/uL RBC (4.30-5.90) m/uL Hgb (13.0-17.5) gm/dL RDW 16.0 H (11.5-15.5) % Neutrophils # 17.6 H (1.3-7.7) k/uL Lymphocytes # (1.0-4.8) k/uL INR (<1.2) ABG pH (7.35-7.45) ABG pCO2 (35-45) mmHg ABG pO2 60 L (83-108) mmHg ABG Total CO2 (19-24) mmol/L ABG O2 Saturation 89.5 L (94-97) % Sodium (137-145) mmol/L Potassium (3.5-5.1) mmol/L Chloride (98-107) mmol/L Glucose (74-99) mg/dL POC Glucose (mg/dL) 256 H (75-99) mg/dL Calcium (8.4-10.2) mg/dL Total Protein (6.3-8.2) g/dL Albumin (3.5-5.0) g/dL Crossmatch 05/31/17 05/31/17 05/31/17 Range/Units 19:48 19:48 20:38 WBC (3.8-10.6) k/uL RBC (4.30-5.90) m/uL Hgb (13.0-17.5) gm/dL RDW (11.5-15.5) % Neutrophils # (1.3-7.7) k/uL Lymphocytes # (1.0-4.8) k/uL INR (<1.2) ABG pH (7.35-7.45) ABG pCO2 (35-45) mmHg ABG pO2 125 H (83-108) mmHg ABG Total CO2 26 H (19-24) mmol/L ABG O2 Saturation 99.0 H (94-97) % Sodium (137-145) mmol/L Potassium (3.5-5.1) mmol/L Chloride (98-107) mmol/L Glucose (74-99) mg/dL POC Glucose (mg/dL) 247 H 206 H (75-99) mg/dL Calcium (8.4-10.2) mg/dL Total Protein (6.3-8.2) g/dL Albumin (3.5-5.0) g/dL Crossmatch 05/31/17 05/31/17 05/31/17 Range/Units 21:07 21:57 22:00 WBC 18.2 H (3.8-10.6) k/uL RBC (4.30-5.90) m/uL Hgb 12.8 L (13.0-17.5) gm/dL RDW 16.2 H (11.5-15.5) % Neutrophils # 16.6 H (1.3-7.7) k/uL Lymphocytes # 0.6 L (1.0-4.8) k/uL INR (<1.2) ABG pH (7.35-7.45) ABG pCO2 (35-45) mmHg ABG pO2 (83-108) mmHg ABG Total CO2 (19-24) mmol/L ABG O2 Saturation (94-97) % Sodium (137-145) mmol/L Potassium (3.5-5.1) mmol/L Chloride (98-107) mmol/L Glucose (74-99) mg/dL POC Glucose (mg/dL) 197 H 196 H (75-99) mg/dL Calcium (8.4-10.2) mg/dL Total Protein (6.3-8.2) g/dL Albumin (3.5-5.0) g/dL Crossmatch 05/31/17 05/31/17 05/31/17 Range/Units 22:00 22:00 22:16 WBC (3.8-10.6) k/uL RBC (4.30-5.90) m/uL Hgb (13.0-17.5) gm/dL RDW (11.5-15.5) % Neutrophils # (1.3-7.7) k/uL Lymphocytes # (1.0-4.8) k/uL INR 1.2 H (<1.2) ABG pH (7.35-7.45) ABG pCO2 (35-45) mmHg ABG pO2 117 H (83-108) mmHg ABG Total CO2 25 H (19-24) mmol/L ABG O2 Saturation 98.0 H (94-97) % Sodium 136 L (137-145) mmol/L Potassium 5.8 H (3.5-5.1) mmol/L Chloride (98-107) mmol/L Glucose 209 H (74-99) mg/dL POC Glucose (mg/dL) (75-99) mg/dL Calcium 8.3 L (8.4-10.2) mg/dL Total Protein (6.3-8.2) g/dL Albumin (3.5-5.0) g/dL Crossmatch 05/31/17 05/31/17 06/01/17 Range/Units 22:59 23:54 00:50 WBC (3.8-10.6) k/uL RBC (4.30-5.90) m/uL Hgb (13.0-17.5) gm/dL RDW (11.5-15.5) % Neutrophils # (1.3-7.7) k/uL Lymphocytes # (1.0-4.8) k/uL INR (<1.2) ABG pH (7.35-7.45) ABG pCO2 (35-45) mmHg ABG pO2 (83-108) mmHg ABG Total CO2 (19-24) mmol/L ABG O2 Saturation (94-97) % Sodium (137-145) mmol/L Potassium 5.7 H (3.5-5.1) mmol/L Chloride (98-107) mmol/L Glucose (74-99) mg/dL POC Glucose (mg/dL) 206 H 208 H (75-99) mg/dL Calcium (8.4-10.2) mg/dL Total Protein (6.3-8.2) g/dL Albumin (3.5-5.0) g/dL Crossmatch 06/01/17 06/01/17 06/01/17 Range/Units 00:51 02:01 03:04 WBC (3.8-10.6) k/uL RBC (4.30-5.90) m/uL Hgb (13.0-17.5) gm/dL RDW (11.5-15.5) % Neutrophils # (1.3-7.7) k/uL Lymphocytes # (1.0-4.8) k/uL INR (<1.2) ABG pH (7.35-7.45) ABG pCO2 (35-45) mmHg ABG pO2 (83-108) mmHg ABG Total CO2 (19-24) mmol/L ABG O2 Saturation (94-97) % Sodium (137-145) mmol/L Potassium (3.5-5.1) mmol/L Chloride (98-107) mmol/L Glucose (74-99) mg/dL POC Glucose (mg/dL) 201 H 192 H 160 H (75-99) mg/dL Calcium (8.4-10.2) mg/dL Total Protein (6.3-8.2) g/dL Albumin (3.5-5.0) g/dL Crossmatch 06/01/17 06/01/17 06/01/17 Range/Units 04:25 04:45 04:45 WBC 14.9 H (3.8-10.6) k/uL RBC 4.24 L (4.30-5.90) m/uL Hgb 12.8 L (13.0-17.5) gm/dL RDW (11.5-15.5) % Neutrophils # 13.2 H (1.3-7.7) k/uL Lymphocytes # 0.9 L (1.0-4.8) k/uL INR (<1.2) ABG pH (7.35-7.45) ABG pCO2 (35-45) mmHg ABG pO2 (83-108) mmHg ABG Total CO2 (19-24) mmol/L ABG O2 Saturation (94-97) % Sodium (137-145) mmol/L Potassium 5.4 H (3.5-5.1) mmol/L Chloride 108 H (98-107) mmol/L Glucose 182 H (74-99) mg/dL POC Glucose (mg/dL) 182 H (75-99) mg/dL Calcium 8.2 L (8.4-10.2) mg/dL Total Protein 5.1 L (6.3-8.2) g/dL Albumin 2.7 L (3.5-5.0) g/dL Crossmatch 06/01/17 06/01/17 06/01/17 Range/Units 04:45 05:10 05:36 WBC (3.8-10.6) k/uL RBC (4.30-5.90) m/uL Hgb (13.0-17.5) gm/dL RDW (11.5-15.5) % Neutrophils # (1.3-7.7) k/uL Lymphocytes # (1.0-4.8) k/uL INR 1.2 H (<1.2) ABG pH (7.35-7.45) ABG pCO2 (35-45) mmHg ABG pO2 (83-108) mmHg ABG Total CO2 26 H (19-24) mmol/L ABG O2 Saturation 98.0 H (94-97) % Sodium (137-145) mmol/L Potassium (3.5-5.1) mmol/L Chloride (98-107) mmol/L Glucose (74-99) mg/dL POC Glucose (mg/dL) 169 H (75-99) mg/dL Calcium (8.4-10.2) mg/dL Total Protein (6.3-8.2) g/dL Albumin (3.5-5.0) g/dL Crossmatch 06/01/17 06/01/17 06/01/17 Range/Units 06:40 08:15 09:18 WBC (3.8-10.6) k/uL RBC (4.30-5.90) m/uL Hgb (13.0-17.5) gm/dL RDW (11.5-15.5) % Neutrophils # (1.3-7.7) k/uL Lymphocytes # (1.0-4.8) k/uL INR (<1.2) ABG pH (7.35-7.45) ABG pCO2 (35-45) mmHg ABG pO2 (83-108) mmHg ABG Total CO2 (19-24) mmol/L ABG O2 Saturation (94-97) % Sodium (137-145) mmol/L Potassium (3.5-5.1) mmol/L Chloride (98-107) mmol/L Glucose (74-99) mg/dL POC Glucose (mg/dL) 169 H 183 H 179 H (75-99) mg/dL Calcium (8.4-10.2) mg/dL Total Protein (6.3-8.2) g/dL Albumin (3.5-5.0) g/dL Crossmatch 06/01/17 Range/Units 10:03 WBC (3.8-10.6) k/uL RBC (4.30-5.90) m/uL Hgb (13.0-17.5) gm/dL RDW (11.5-15.5) % Neutrophils # (1.3-7.7) k/uL Lymphocytes # (1.0-4.8) k/uL INR (<1.2) ABG pH (7.35-7.45) ABG pCO2 (35-45) mmHg ABG pO2 (83-108) mmHg ABG Total CO2 (19-24) mmol/L ABG O2 Saturation (94-97) % Sodium (137-145) mmol/L Potassium (3.5-5.1) mmol/L Chloride (98-107) mmol/L Glucose (74-99) mg/dL POC Glucose (mg/dL) 200 H (75-99) mg/dL Calcium (8.4-10.2) mg/dL Total Protein (6.3-8.2) g/dL Albumin (3.5-5.0) g/dL Crossmatch Assessment and Plan Plan: The patient was seen and examined. Agree with the above assessment and plan. He remains intubated this morning. He is on 13 of PEEP and 40% FiO2. His chest x-ray looks slightly improved. He has better aeration on the left side. We will continue to wean his vent to extubation as tolerated. His laboratory studies are unremarkable. His ABG is good this morning. From a hemodynamic standpoint, he remains stable. He has a good cardiac index. He is making good urine. He is neurologically intact.
[2017-06-01] MEDS: ATORVASTATIN 40 MG TAB PO SCH (08:29)
[2017-06-01] MEDS: METOPROLOL TARTRATE 12.5 MG TAB PO SCH ×2 (08:29→20:17)
[2017-06-01] MEDS: CLOPIDOGREL 75 MG TAB PO SCH (08:29)
[2017-06-01] MEDS: PANTOPRAZOLE 40 MG/10 ML VIAL IVP SCH (08:29)
[2017-06-01] MEDS: ceFAZolin 3 GM in SODIUM CHLORIDE 0.9% 100 ML IVPB SCH ×3 (08:45)
--- NOTE | 2017-06-01 09:00 | CONS ---
CONSULTATION Mr. Heredia is a 67-year-old male who is followed by Dr. Sarmiento and has underwent cardiac catheterization recently because of progressive symptoms of angina pectoris. He was found to have severe triple-vessel coronary artery disease and underwent coronary bypass grafting by Dr. Desai yesterday. He remains intubated and sedated at this time on high PEEP. He received a DAY to the LAD, saphenous vein graft to the diagonal, saphenous vein graft to PDA and the posterolateral branch. The patient preoperatively had a normal left ventricular systolic function and there was no significant valvular abnormalities. His past history is remarkable for history of hypertension, hyperlipidemia and a prior history of smoking. He has underwent percutaneous revascularization of his RCA in 2013. REVIEW OF SYSTEMS: Review of systems is not obtainable at this time. The patient is in sinus mechanism and is on no pressors. He had a labile blood pressure early on postoperatively, but that has resolved since. His urine output has continued to be stable. MEDICATION: His medication as an outpatient included Ellipta, metoprolol tartrate 50 mg daily, isosorbide mononitrate 30 mg daily, Lipitor and aspirin. PHYSICAL EXAMINATION: He is a 67-year-old male, intubated, responding to painful stimuli. Blood pressure 135/60 with the heart rate in the 80s. HEAD: Normocephalic. EYES: Sclerae nonicteric. Half Way-Kevin catheter in place. LUNGS: Clear to auscultation anteriorly. HEART: Regular rate and rhythm. S1, S2. No S3. No rub appreciated. ABDOMEN: Soft. Positive bowel sounds. No organomegaly. EXTREMITIES: Dressing in place. No significant edema. LAB DATA: His EKG revealed sinus mechanism with evidence to suggest pericarditis. A chest x-ray revealed mild congestion. Lab data revealed BUN and creatinine 19 and 0.8. Potassium 5.4. His pH 7.36 with a pO2 of 106. His hemoglobin 12.8. IMPRESSION: 1. Status post coronary artery bypass grafting. 2. Respiratory failure. 3. History of hypertension. 4. Diabetes. 5. Prior history of smoking. 6. Hyperlipidemia. RECOMMENDATION: From the cardiac standpoint, we will continue present therapy. I am hopeful that we can start to decrease the PEEP and wean him soon. I will repeat his EKG tomorrow in view of the finding of pericarditis. Depending on his progress, further recommendation will be made. Thank you for this consult. We will follow with you. MMODL / IJN: [id number] /
[2017-06-01 09:21] LABS: Glucose,Whole Blood 179 mg/dL (75-99)
--- NOTE | 2017-06-01 09:34 | P.PN ---
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 He had a cardiac catheterization that showed diffuse disease in the LAD with 70% stenosis in the midportion 70% stenosis in the large diagonal branch proximal circumflex occlusion and a heavily calcified right coronary artery with a 80-90% stenosis in the distal RCA. The patient was referred to CT surgery and the patient underwent four- vessel bypass surgery today. Currently is postop. He still intubated on a mechanical ventilator. His sedated with Diprivan. He is an assist-control mode of ventilation with a rate of 12, tidal volume of 700, FiO2 of 100% and a PEEP of 5. The chest x-ray and a blood gas are still pending for now. Meanwhile, hemodynamically the patient is doing well. He is hypertensive and he will be started on Celebrex drip for blood pressure control. His cardiac output is at 8.1 with an index of 3.2. He has mediastinal chest tube and left pleural chest tube. Cardiac rhythm is sinus and he has a backup pacemaker. His blood sugar is at 106. He is currently on insulin drip for blood sugar control. No other significant events . Producing adequate amount of urine output. His peak pressures around 24. As I'm dictating, the blood gases arrived at pH of 7.27 with a pCO2 of 54 and pO2 of 98. I made recommendations to increase the tidal volume to 750 and increase the respiratory rate up to 20. His FiO2 will be gradually wean down as tolerated to maintain a saturation above 92%. On 06/01/2017 the patient is being seen in follow-up. I was unable to wean off this patient from the mechanical ventilator. He became acutely hypoxic and had to increase the PEEP up to 15 and gradually moved his tidal volume down to 550. I kept his peak pressures around 28. Static pressures around 27. FiO2 this morning is down to 40%. The rest of the vent settings include an assist- control at the rate of 20, FiO2 of 40%, PEEP of 15 and tidal volume of 550. The patient is doing well. The patient is sedated and is calm and comfortable currently on 40 mics of the prevent. Chest x-ray from today shows improved aeration of the lungs bilaterally. There is improving and the central vascular congestion. There is also patchy left basilar atelectasis and the chest tubes are in place without evidence of pneumothorax. The patient is stable. The patient is on no pressors and the patient is producing adequate amount of urine output. The mediastinal chest tube has drained 90 mL of suicide on this material overnight and 170 mL since surgery and the left pleural chest tube has drained 30 mL of drainage overnight and 85 mL since surgery. The cardiac index is at 3.1. PA pressure is 42/27. No other significant events overnight otherwise. Objective - Vital Signs Vital signs: Vital Signs Temp 99.9 F H 05/31/17 17:45 Pulse 90 06/01/17 07:27 Resp 22 06/01/17 07:00 BP 127/72 06/01/17 07:00 Pulse Ox 96 06/01/17 07:00 Intake & Output 05/31/17 06/01/17 06/01/17 18:59 06:59 18:59 Intake Total 165.621 6843.649 199.166 Output Total 6375 1535 110 Balance -6090.100 -182.351 89.166 Weight 132.9 kg 136.5 kg Intake: IV 282 859 159 0.9NaCl 159 9 ACETAMINOPHEN IV (For NPO 100 ) 1,000 mg In Empty Bag 1 bag @ 400 mls/hr IVPB Q6HR SANG Rx#:[id number] Lactated Ringers 1,000 ml 150 600 50 @ 50 mls/hr IV .Q20H SANG Rx#:[id number] ceFAZolin 3 gm In Sodium 100 100 Chloride 0.9% 30 ml @ Per Protocol IVPB ONCE ONE Rx#:[id number] Intake, IV Titration 2.900 493.649 40.166 Amount Albumin Human 5% 250 ml 100 In Empty Bag 1 bag @ 250 mls/hr IVPB Q1HR PRN Rx#: [id number] Clevidipine Butyrate 25 2.900 15 mg In Empty Bag 1 bag @ 1 MG/HR 2 mls/hr IV .Q24H SANG Rx#:[id number] Insulin Regular 100 unit 78.649 40.166 In Sodium Chloride 0.9% 100 ml @ Per Protocol IV .Q0M SANG Rx#:[id number] Propofol 1,000 mg In 100 300 ml @ Titrate IV .Q0M SANG Rx#:[id number] Output: Chest Tube Drainage 170 163 10 Chest Tube Bilateral 60 133 10 Mediastinal Chest Tube Left Lateral 110 30 Chest Drainage 0 120 Left Calf 0 80 Right Calf 0 40 Urine 2705 1252 100 Estimated Blood Loss 3500 Other: Voiding Method Indwelling Catheter Indwelling Catheter ABP, PAP, CO, CI - Last Documented Arterial Blood Pressure 139/65 Pulmonary Artery Pressure 42/26 Cardiac Output 9 Cardiac Index 2.4 - Exam The patient is sedated, comfortable on a mechanical ventilator. He has a right IJ Vendor-Kevin catheter.Head exam was generally normal. There was no scleral icterus or corneal arcus. Mucous membranes were moist. Neck was supple and without jugular venous distension, thyromegaly, or carotid bruits. Carotids were easily palpable bilaterally. There was no adenopathy. Lung sounds are diminished bilaterally otherwise is no wheezes or rhonchi or any crackles. Sternum stable clean and intact. Heart sounds are regular, S1 and S2 is present , rhythm is sinus, epicardial pacemaker wires are present, sternum is stable and intact. All of the chest tubes are in place. The patient has a Heart Hugger.Abdominal exam revealed normal bowel sounds. The abdomen was soft, non- tender, and without masses, organomegaly, or appreciable enlargement of the abdominal aorta.Examination of the extremities revealed easily palpable radial, femoral and pedal pulses. There was no cyanosis, clubbing or edema. Neurologically the patient is sedated yet is easily arousable. He can squeeze his hands bilaterally and weak and his toes to commands. Skeletal examination cannot be done yet there is no obvious joint deformities or arthritis.Examination of the skin revealed no evidence of significant rashes, suspicious appearing nevi or other concerning lesions. All of the wounds over the anterior chest and lower extremities are dry clean and intact - Labs CBC & Chem 7: 06/01/17 04:45 06/01/17 04:45 Labs: Abnormal Lab Results - Last 24 Hours (Table) 05/26/17 05/31/17 05/31/17 Range/Units 09:55 10:21 11:13 WBC (3.8-10.6) k/uL RBC (4.30-5.90) m/uL Hgb (13.0-17.5) gm/dL RDW (11.5-15.5) % Neutrophils # (1.3-7.7) k/uL Lymphocytes # (1.0-4.8) k/uL INR (<1.2) ABG pH (7.35-7.45) ABG pCO2 (35-45) mmHg ABG pO2 (83-108) mmHg ABG Total CO2 (19-24) mmol/L ABG O2 Saturation (94-97) % Sodium (137-145) mmol/L Potassium (3.5-5.1) mmol/L Chloride (98-107) mmol/L Glucose (74-99) mg/dL POC Glucose (mg/dL) 230 H 201 H (75-99) mg/dL Calcium (8.4-10.2) mg/dL Total Protein (6.3-8.2) g/dL Albumin (3.5-5.0) g/dL Crossmatch See Detail 05/31/17 05/31/17 05/31/17 Range/Units 11:34 11:49 12:22 WBC (3.8-10.6) k/uL RBC (4.30-5.90) m/uL Hgb (13.0-17.5) gm/dL RDW (11.5-15.5) % Neutrophils # (1.3-7.7) k/uL Lymphocytes # (1.0-4.8) k/uL INR (<1.2) ABG pH (7.35-7.45) ABG pCO2 (35-45) mmHg ABG pO2 (83-108) mmHg ABG Total CO2 (19-24) mmol/L ABG O2 Saturation (94-97) % Sodium (137-145) mmol/L Potassium (3.5-5.1) mmol/L Chloride (98-107) mmol/L Glucose (74-99) mg/dL POC Glucose (mg/dL) 241 H 252 H 229 H (75-99) mg/dL Calcium (8.4-10.2) mg/dL Total Protein (6.3-8.2) g/dL Albumin (3.5-5.0) g/dL Crossmatch 05/31/17 05/31/17 05/31/17 Range/Units 12:54 13:29 14:48 WBC (3.8-10.6) k/uL RBC (4.30-5.90) m/uL Hgb (13.0-17.5) gm/dL RDW (11.5-15.5) % Neutrophils # (1.3-7.7) k/uL Lymphocytes # (1.0-4.8) k/uL INR (<1.2) ABG pH (7.35-7.45) ABG pCO2 (35-45) mmHg ABG pO2 (83-108) mmHg ABG Total CO2 (19-24) mmol/L ABG O2 Saturation (94-97) % Sodium (137-145) mmol/L Potassium (3.5-5.1) mmol/L Chloride (98-107) mmol/L Glucose (74-99) mg/dL POC Glucose (mg/dL) 233 H 214 H 139 H (75-99) mg/dL Calcium (8.4-10.2) mg/dL Total Protein (6.3-8.2) g/dL Albumin (3.5-5.0) g/dL Crossmatch 05/31/17 05/31/17 05/31/17 Range/Units 16:25 16:25 16:25 WBC 18.3 H (3.8-10.6) k/uL RBC (4.30-5.90) m/uL Hgb (13.0-17.5) gm/dL RDW (11.5-15.5) % Neutrophils # 14.9 H (1.3-7.7) k/uL Lymphocytes # (1.0-4.8) k/uL INR 1.2 H (<1.2) ABG pH (7.35-7.45) ABG pCO2 (35-45) mmHg ABG pO2 (83-108) mmHg ABG Total CO2 (19-24) mmol/L ABG O2 Saturation (94-97) % Sodium (137-145) mmol/L Potassium (3.5-5.1) mmol/L Chloride 109 H (98-107) mmol/L Glucose 108 H (74-99) mg/dL POC Glucose (mg/dL) (75-99) mg/dL Calcium 8.1 L (8.4-10.2) mg/dL Total Protein 5.2 L (6.3-8.2) g/dL Albumin 2.8 L (3.5-5.0) g/dL Crossmatch 05/31/17 05/31/17 05/31/17 Range/Units 16:27 16:36 17:15 WBC (3.8-10.6) k/uL RBC (4.30-5.90) m/uL Hgb (13.0-17.5) gm/dL RDW (11.5-15.5) % Neutrophils # (1.3-7.7) k/uL Lymphocytes # (1.0-4.8) k/uL INR (<1.2) ABG pH 7.27 L 7.32 L (7.35-7.45) ABG pCO2 55 H (35-45) mmHg ABG pO2 60 L (83-108) mmHg ABG Total CO2 26 H (19-24) mmol/L ABG O2 Saturation 88.7 L (94-97) % Sodium (137-145) mmol/L Potassium (3.5-5.1) mmol/L Chloride (98-107) mmol/L Glucose (74-99) mg/dL POC Glucose (mg/dL) 106 H (75-99) mg/dL Calcium (8.4-10.2) mg/dL Total Protein (6.3-8.2) g/dL Albumin (3.5-5.0) g/dL Crossmatch 05/31/17 05/31/17 05/31/17 Range/Units 17:44 18:28 18:30 WBC 20.2 H (3.8-10.6) k/uL RBC (4.30-5.90) m/uL Hgb (13.0-17.5) gm/dL RDW 16.0 H (11.5-15.5) % Neutrophils # 17.6 H (1.3-7.7) k/uL Lymphocytes # (1.0-4.8) k/uL INR (<1.2) ABG pH (7.35-7.45) ABG pCO2 (35-45) mmHg ABG pO2 60 L (83-108) mmHg ABG Total CO2 (19-24) mmol/L ABG O2 Saturation 89.5 L (94-97) % Sodium (137-145) mmol/L Potassium (3.5-5.1) mmol/L Chloride (98-107) mmol/L Glucose (74-99) mg/dL POC Glucose (mg/dL) 225 H (75-99) mg/dL Calcium (8.4-10.2) mg/dL Total Protein (6.3-8.2) g/dL Albumin (3.5-5.0) g/dL Crossmatch 05/31/17 05/31/17 05/31/17 Range/Units 18:40 19:48 19:48 WBC (3.8-10.6) k/uL RBC (4.30-5.90) m/uL Hgb (13.0-17.5) gm/dL RDW (11.5-15.5) % Neutrophils # (1.3-7.7) k/uL Lymphocytes # (1.0-4.8) k/uL INR (<1.2) ABG pH (7.35-7.45) ABG pCO2 (35-45) mmHg ABG pO2 125 H (83-108) mmHg ABG Total CO2 26 H (19-24) mmol/L ABG O2 Saturation 99.0 H (94-97) % Sodium (137-145) mmol/L Potassium (3.5-5.1) mmol/L Chloride (98-107) mmol/L Glucose (74-99) mg/dL POC Glucose (mg/dL) 256 H 247 H (75-99) mg/dL Calcium (8.4-10.2) mg/dL Total Protein (6.3-8.2) g/dL Albumin (3.5-5.0) g/dL Crossmatch 05/31/17 05/31/17 05/31/17 Range/Units 20:38 21:07 21:57 WBC (3.8-10.6) k/uL RBC (4.30-5.90) m/uL Hgb (13.0-17.5) gm/dL RDW (11.5-15.5) % Neutrophils # (1.3-7.7) k/uL Lymphocytes # (1.0-4.8) k/uL INR (<1.2) ABG pH (7.35-7.45) ABG pCO2 (35-45) mmHg ABG pO2 (83-108) mmHg ABG Total CO2 (19-24) mmol/L ABG O2 Saturation (94-97) % Sodium (137-145) mmol/L Potassium (3.5-5.1) mmol/L Chloride (98-107) mmol/L Glucose (74-99) mg/dL POC Glucose (mg/dL) 206 H 197 H 196 H (75-99) mg/dL Calcium (8.4-10.2) mg/dL Total Protein (6.3-8.2) g/dL Albumin (3.5-5.0) g/dL Crossmatch 05/31/17 05/31/17 05/31/17 Range/Units 22:00 22:00 22:00 WBC 18.2 H (3.8-10.6) k/uL RBC (4.30-5.90) m/uL Hgb 12.8 L (13.0-17.5) gm/dL RDW 16.2 H (11.5-15.5) % Neutrophils # 16.6 H (1.3-7.7) k/uL Lymphocytes # 0.6 L (1.0-4.8) k/uL INR 1.2 H (<1.2) ABG pH (7.35-7.45) ABG pCO2 (35-45) mmHg ABG pO2 (83-108) mmHg ABG Total CO2 (19-24) mmol/L ABG O2 Saturation (94-97) % Sodium 136 L (137-145) mmol/L Potassium 5.8 H (3.5-5.1) mmol/L Chloride (98-107) mmol/L Glucose 209 H (74-99) mg/dL POC Glucose (mg/dL) (75-99) mg/dL Calcium 8.3 L (8.4-10.2) mg/dL Total Protein (6.3-8.2) g/dL Albumin (3.5-5.0) g/dL Crossmatch 05/31/17 05/31/17 05/31/17 Range/Units 22:16 22:59 23:54 WBC (3.8-10.6) k/uL RBC (4.30-5.90) m/uL Hgb (13.0-17.5) gm/dL RDW (11.5-15.5) % Neutrophils # (1.3-7.7) k/uL Lymphocytes # (1.0-4.8) k/uL INR (<1.2) ABG pH (7.35-7.45) ABG pCO2 (35-45) mmHg ABG pO2 117 H (83-108) mmHg ABG Total CO2 25 H (19-24) mmol/L ABG O2 Saturation 98.0 H (94-97) % Sodium (137-145) mmol/L Potassium (3.5-5.1) mmol/L Chloride (98-107) mmol/L Glucose (74-99) mg/dL POC Glucose (mg/dL) 206 H 208 H (75-99) mg/dL Calcium (8.4-10.2) mg/dL Total Protein (6.3-8.2) g/dL Albumin (3.5-5.0) g/dL Crossmatch 06/01/17 06/01/17 06/01/17 Range/Units 00:50 00:51 02:01 WBC (3.8-10.6) k/uL RBC (4.30-5.90) m/uL Hgb (13.0-17.5) gm/dL RDW (11.5-15.5) % Neutrophils # (1.3-7.7) k/uL Lymphocytes # (1.0-4.8) k/uL INR (<1.2) ABG pH (7.35-7.45) ABG pCO2 (35-45) mmHg ABG pO2 (83-108) mmHg ABG Total CO2 (19-24) mmol/L ABG O2 Saturation (94-97) % Sodium (137-145) mmol/L Potassium 5.7 H (3.5-5.1) mmol/L Chloride (98-107) mmol/L Glucose (74-99) mg/dL POC Glucose (mg/dL) 201 H 192 H (75-99) mg/dL Calcium (8.4-10.2) mg/dL Total Protein (6.3-8.2) g/dL Albumin (3.5-5.0) g/dL Crossmatch 06/01/17 06/01/17 06/01/17 Range/Units 03:04 04:25 04:45 WBC 14.9 H (3.8-10.6) k/uL RBC 4.24 L (4.30-5.90) m/uL Hgb 12.8 L (13.0-17.5) gm/dL RDW (11.5-15.5) % Neutrophils # 13.2 H (1.3-7.7) k/uL Lymphocytes # 0.9 L (1.0-4.8) k/uL INR (<1.2) ABG pH (7.35-7.45) ABG pCO2 (35-45) mmHg ABG pO2 (83-108) mmHg ABG Total CO2 (19-24) mmol/L ABG O2 Saturation (94-97) % Sodium (137-145) mmol/L Potassium (3.5-5.1) mmol/L Chloride (98-107) mmol/L Glucose (74-99) mg/dL POC Glucose (mg/dL) 160 H 182 H (75-99) mg/dL Calcium (8.4-10.2) mg/dL Total Protein (6.3-8.2) g/dL Albumin (3.5-5.0) g/dL Crossmatch 06/01/17 06/01/17 06/01/17 Range/Units 04:45 04:45 05:10 WBC (3.8-10.6) k/uL RBC (4.30-5.90) m/uL Hgb (13.0-17.5) gm/dL RDW (11.5-15.5) % Neutrophils # (1.3-7.7) k/uL Lymphocytes # (1.0-4.8) k/uL INR 1.2 H (<1.2) ABG pH (7.35-7.45) ABG pCO2 (35-45) mmHg ABG pO2 (83-108) mmHg ABG Total CO2 26 H (19-24) mmol/L ABG O2 Saturation 98.0 H (94-97) % Sodium (137-145) mmol/L Potassium 5.4 H (3.5-5.1) mmol/L Chloride 108 H (98-107) mmol/L Glucose 182 H (74-99) mg/dL POC Glucose (mg/dL) (75-99) mg/dL Calcium 8.2 L (8.4-10.2) mg/dL Total Protein 5.1 L (6.3-8.2) g/dL Albumin 2.7 L (3.5-5.0) g/dL Crossmatch 06/01/17 06/01/17 06/01/17 Range/Units 05:36 06:40 08:15 WBC (3.8-10.6) k/uL RBC (4.30-5.90) m/uL Hgb (13.0-17.5) gm/dL RDW (11.5-15.5) % Neutrophils # (1.3-7.7) k/uL Lymphocytes # (1.0-4.8) k/uL INR (<1.2) ABG pH (7.35-7.45) ABG pCO2 (35-45) mmHg ABG pO2 (83-108) mmHg ABG Total CO2 (19-24) mmol/L ABG O2 Saturation (94-97) % Sodium (137-145) mmol/L Potassium (3.5-5.1) mmol/L Chloride (98-107) mmol/L Glucose (74-99) mg/dL POC Glucose (mg/dL) 169 H 169 H 183 H (75-99) mg/dL Calcium (8.4-10.2) mg/dL Total Protein (6.3-8.2) g/dL Albumin (3.5-5.0) g/dL Crossmatch 06/01/17 Range/Units 09:18 WBC (3.8-10.6) k/uL RBC (4.30-5.90) m/uL Hgb (13.0-17.5) gm/dL RDW (11.5-15.5) % Neutrophils # (1.3-7.7) k/uL Lymphocytes # (1.0-4.8) k/uL INR (<1.2) ABG pH (7.35-7.45) ABG pCO2 (35-45) mmHg ABG pO2 (83-108) mmHg ABG Total CO2 (19-24) mmol/L ABG O2 Saturation (94-97) % Sodium (137-145) mmol/L Potassium (3.5-5.1) mmol/L Chloride (98-107) mmol/L Glucose (74-99) mg/dL POC Glucose (mg/dL) 179 H (75-99) mg/dL Calcium (8.4-10.2) mg/dL Total Protein (6.3-8.2) g/dL Albumin (3.5-5.0) g/dL Crossmatch Assessment and Plan Plan: Assessment 1 multivessel coronary artery disease and the patient is post CABG with 4 vessel bypass involving DAY to LAD and saphenous vein graft to PDA, PLB and diagonal. The patient was not weaned off the mechanical ventilator yet as the patient had some difficulties with hypoxemia currently in a high level of PEEP with an FiO2 being down to 40% with a PEEP of 15. X-ray findings are stable with improved aeration compared to yesterday's chest film. The patient remains hemodynamically stable. The patient is postop day #1. 2 post thoracotomy. The patient remains intubated on a mechanical ventilator. 3 diabetes mellitus currently on insulin drip for blood sugar control 4 obesity 5 COPD 6 hypertension 7 hyperlipidemia Plan Patient is hemodynamically stable. Cut down the tidal volume to 500. Kept on the flow down to 70. Cut down the FiO2 down to 40%. Gradually wean down the PEEP to maintain a saturation above 95%. We'll check the patient's blood gases. Keep the patient sedated for now. No weaning as long as the patient is still requiring high PEEP. Monitored hemodynamics. Continue the insulin drip. Blood gases. Daily electrolytes. No need for any pressors or inotropic agents for now. We'll continue to follow. This evaluation was done and 32 minutes. This is a critically care evaluation. Time with Patient: Greater than 30
[2017-06-01 10:04] LABS: Glucose,Whole Blood 200 mg/dL (75-99)
[2017-06-01] MEDS: CHLORHEXIDINE GLUCONATE 15 ML CUP MUCOUS MEM SCH ×2 (10:04→20:17)
[2017-06-01 11:14] LABS: Glucose,Whole Blood 172 mg/dL (75-99)
[2017-06-01 12:00] LABS: Glucose,Whole Blood 155 mg/dL (75-99)
[2017-06-01 13:07] LABS: Glucose,Whole Blood 154 mg/dL (75-99)
[2017-06-01 14:03] LABS: Glucose,Whole Blood 161 mg/dL (75-99)
[2017-06-01] MEDS ORDERED: BISACODYL 10 MG SUPP RECTAL PRN (14:45)
[2017-06-01] MEDS ORDERED: MAGNESIUM HYDROXIDE 2,400 MG/10 ML CUP PO PRN (14:45)
[2017-06-01 15:07] LABS: Glucose,Whole Blood 135 mg/dL (75-99)
[2017-06-01] MEDS: LACTATED RINGERS 1,000 ML IV SCH (15:08)
[2017-06-01 16:03] LABS: Glucose,Whole Blood 125 mg/dL (75-99)
[2017-06-01 16:07] LABS: ABG Base Excess 2.1 mmol/L; ABG HCO3 26 mmol/L (21-25); ABG PCO2 39 mmHg (35-45); ABG PH 7.44 (7.35-7.45); ABG PO2 77 mmHg (83-108); ABG TCO2 27 mmol/L (19-24)
[2017-06-01 17:15] LABS: Glucose,Whole Blood 107 mg/dL (75-99)
--- NOTE | 2017-06-01 17:17 | P.HPIM ---
History of Present Illness H&P Date: 06/01/17 Chief Complaint: CAD This is a 67-year-old male patient of Dr David Palomares with a past medical history of coronary artery disease with previous coronary stent, hypertension, diabetes mellitus type 2, COPD, obesity and a strong family history for CAD, who presented to his cabana attendant with increased shortness of breath. Patient was out for a bike ride 3 blocks with his and developed severe chest pain with previous episodes of chest pain. He contacted his cabana attendant, Dr. Sarmiento. He had a cardiac catheterization that showed diffuse disease in the LAD with 70% stenosis in the midportion 70% stenosis in the large diagonal branch proximal circumflex occlusion and a heavily calcified right coronary artery with a 80-90% stenosis in the distal RCA. The patient was referred to CT surgery and the patient underwent four-vessel bypass surgery completed yesterday. He remains intubated and on mechanical ventilation with His was at the bedside and the patient is being checked for possible extubation over the next few hours. Review of Systems ROS unobtainable: due to endotracheal tube, due to mental status Past Medical History Past Medical History: Chest Pain / Angina, COPD, Diabetes Mellitus, Hypertension , Myocardial Infarction (WA), Osteoarthritis (OA) Additional Past Medical History / Comment(s): Coronary artery disease, obesity, diabetes mellitus, hypertension, osteoarthritis, L4-L5 degenerative disc disease Last Myocardial Infarction Date:: 2012 History of Any Multi-Drug Resistant Organisms: None Reported Past Surgical History: Appendectomy, Heart Catheterization With Stent Additional Past Surgical History / Comment(s): appendectomy at age 16, cardiac stents x2, recent cardiac cath. Past Anesthesia/Blood Transfusion Reactions: No Reported Reaction Date of Last Stent Placement:: 2012 Smoking Status: Former smoker (patient used to smoke about pack every day smoked for many years and quit I believe in 2001.) Past Alcohol Use History: Occasional Past Drug Use History: None Reported - Past Family History Father Family Medical History: Coronary Artery Disease (CAD) (father at age 76 from massive [place]. He also had 10 uncles all from heart disease.) Mother Family Medical History: Renal Disease (mother at age of 80 from renal failure on hemodialysis.) Brother(s) Family Medical History: Cancer (patient had one brother who from thyroid cancer.) Sister(s) Family Medical History: No Reported History (patient has 2 sisters no major medical problems) Son(s) Family Medical History: Cancer (patient has biological son and a stepson his biological son had thyroid cancer.) Medications and Allergies Home Medications Medication Instructions Recorded Confirmed Type Atorvastatin [Lipitor] 10 mg PO DAILY 05/27/17 05/31/17 History Metoprolol Tartrate [Lopressor] 50 mg PO DAILY 05/27/17 05/31/17 History Nitroglycerin Sl Tabs [Nitrostat] 0.4 mg SUBLINGUAL Q5M PRN 05/27/17 05/31/17 History Umeclidinium Brm/Vilanterol Tr 1 puff INHALATION RT-DAILY 05/27/17 05/31/17 History [Anoro Ellipta 62.5-25 Mcg INH] Mupirocin 2% Nasal Oint [Bactroban 1 applic NASAL BID 05/28/17 05/31/17 History 2% Nasal Oint] Aspirin [Adult Low Dose Aspirin EC] 81 mg PO ONCE 05/31/17 05/31/17 History Isosorbide Mononitrate ER [Imdur] 30 mg PO DAILY 05/31/17 05/31/17 History Allergies Allergy/AdvReac Type Severity Reaction Status Date / Time Penicillins Allergy Rash/Hives Verified 05/31/17 05:59 Sulfa (Sulfonamide Allergy Rash/Hives Verified 05/31/17 05:59 Antibiotics) tetracycline Allergy Rash/Hives Verified 05/31/17 05:59 aspirin AdvReac Rash/Hives Verified 05/31/17 05:59 Physical Exam Vitals: Vital Signs Temp Pulse Pulse Resp BP Pulse Ox 06/01/17 13:00 99.9 F H 91 27 H 138/72 95 06/01/17 12:00 99.9 F H 90 113/70 94 L 06/01/17 11:23 89 06/01/17 11:02 88 06/01/17 11:00 100 F H 87 118/69 94 L 06/01/17 10:00 99.9 F H 85 115/67 95 06/01/17 09:00 99.7 F H 88 133/69 95 06/01/17 08:00 99.5 F 87 22 109/68 96 06/01/17 07:27 90 06/01/17 07:11 85 06/01/17 07:00 87 22 127/72 96 06/01/17 06:00 87 22 140/66 97 06/01/17 05:15 89 121/66 97 06/01/17 05:00 90 121/66 96 06/01/17 04:45 89 128/71 96 06/01/17 04:30 89 124/72 96 06/01/17 04:15 90 119/71 97 06/01/17 04:07 92 06/01/17 04:00 88 86 21 119/71 97 06/01/17 03:45 92 122/61 99 06/01/17 03:42 87 06/01/17 03:30 88 98/61 97 06/01/17 03:15 86 98/61 96 06/01/17 03:00 89 106/58 97 06/01/17 02:45 87 106/58 97 06/01/17 02:30 87 102/62 97 06/01/17 02:15 87 102/62 97 06/01/17 02:00 87 105/59 97 06/01/17 01:45 90 104/54 97 06/01/17 01:30 89 104/54 97 06/01/17 01:15 89 21 105/60 98 06/01/17 01:00 89 138/61 98 06/01/17 00:45 88 114/73 98 06/01/17 00:30 90 114/73 98 06/01/17 00:15 89 119/66 98 06/01/17 00:00 90 20 107/68 97 05/31/17 23:45 92 105/60 97 05/31/17 23:30 86 105/60 97 05/31/17 23:22 89 05/31/17 23:15 88 119/67 97 05/31/17 23:00 90 105/65 99 05/31/17 22:45 88 105/65 95 05/31/17 22:37 90 104/61 96 05/31/17 22:30 89 104/61 96 05/31/17 22:15 89 100/58 96 05/31/17 22:00 87 99/65 96 05/31/17 21:45 88 104/63 97 05/31/17 21:30 88 95/61 97 05/31/17 21:15 89 124/74 97 05/31/17 21:00 85 124/74 98 05/31/17 20:45 85 103/66 98 05/31/17 20:30 86 113/69 97 05/31/17 20:15 85 105/69 97 05/31/17 20:00 85 20 118/72 98 05/31/17 19:45 82 111/68 98 05/31/17 19:30 82 112/63 98 05/31/17 19:15 83 112/63 98 05/31/17 19:00 81 96/64 97 05/31/17 18:45 79 111/62 95 05/31/17 18:30 77 110/64 89 L 05/31/17 18:15 77 110/64 89 L 05/31/17 18:00 79 118/63 90 L 05/31/17 17:45 99.9 F H 81 20 126/64 91 L 05/31/17 17:30 83 20 126/64 92 L 05/31/17 17:15 78 20 103/56 89 L 05/31/17 17:00 90 148/75 90 L 05/31/17 16:45 99.1 F 93 112/65 98 05/31/17 16:30 99.0 F 119 H 103/57 98 05/31/17 16:17 90 Intake and Output 05/31/17 06/01/17 06/01/17 22:59 06:59 14:59 Intake Total 660.999 944.550 697.405 Output Total 6932 978 1939 Balance -6271.001 -33.450 -1241.595 Intake: IV 517 592 453 0.9NaCl 67 92 9 ACETAMINOPHEN IV (For NPO 100 ) 1,000 mg In Empty Bag 1 bag @ 400 mls/hr IVPB Q6HR SANG Rx#:[id number] Lactated Ringers 1,000 ml 350 400 250 @ 20 mls/hr IV .Q24H SANG Rx#:[id number] cardiac output 40 ceFAZolin 3 gm In Sodium 100 100 Chloride 0.9% 30 ml @ Per Protocol IVPB ONCE ONE Rx#:[id number] pressure bag 54 Intake, IV Titration 143.999 352.550 244.405 Amount Albumin Human 5% 250 ml 100 In Empty Bag 1 bag @ 250 mls/hr IVPB Q1HR PRN Rx#: [id number] Clevidipine Butyrate 25 17.900 mg In Empty Bag 1 bag @ 1 MG/HR 2 mls/hr IV .Q24H SANG Rx#:[id number] Insulin Regular 100 unit 26.099 52.550 84.866 In Sodium Chloride 0.9% 100 ml @ Per Protocol IV .Q0M SANG Rx#:[id number] Propofol 1,000 mg In 100 100 200 159.539 ml @ Titrate IV .Q0M SANG Rx#:[id number] Output: Chest Tube Drainage 210 123 64 Chest Tube Bilateral 93 100 61 Mediastinal Chest Tube Left Lateral 117 23 3 Chest Drainage 55 65 15 Left Calf 35 45 10 Right Calf 20 20 5 Urine 3167 790 1860 Estimated Blood Loss 3500 Other: Voiding Method Indwelling Catheter Indwelling Catheter Indwelling Catheter Weight 132.9 kg 136.5 kg 136.5 kg Patient Weight 06/02/17 06:59 Weight 136.5 kg ABP, PAP, CO, CI - Last 8 Hours Arterial Blood Pressure 134/61 Arterial Blood Pressure 125/60 Arterial Blood Pressure 130/68 Arterial Blood Pressure 122/62 Arterial Blood Pressure 153/81 Arterial Blood Pressure 129/63 Arterial Blood Pressure 139/65 Arterial Blood Pressure 132/64 Pulmonary Artery Pressure 39/25 Pulmonary Artery Pressure 38/24 Pulmonary Artery Pressure 41/27 Pulmonary Artery Pressure 38/26 Pulmonary Artery Pressure 43/27 Pulmonary Artery Pressure 42/26 Pulmonary Artery Pressure 42/26 Pulmonary Artery Pressure 42/26 Cardiac Output 7.6 Cardiac Output 7.6 Cardiac Output 7.6 Cardiac Output 7.6 Cardiac Output 7.6 Cardiac Output 7.6 Cardiac Output 9 Cardiac Output 6.1 Cardiac Index 3.0 Cardiac Index 3.0 Cardiac Index 2.4 - Constitutional General appearance: average body habitus, mild distress - EENT Eyes: anicteric sclerae, normal appearance ENT: NA/AT, other (ET tube placed on oral gastric tube in place.), no thrush Ears: bilateral: normal - Neck Neck: no lymphadenopathy Carotids: bilateral: upstroke delayed Thyroid: bilateral: normal size - Respiratory Respiratory: bilateral: diminished, rhonchi, negative: dullness, rales, wheezing , prolonged expiration - Cardiovascular Rhythm: regular Heart sounds: normal: S1, S2 Abnormal Heart Sounds: systolic murmur, rub, S3 Gallop, no click - Gastrointestinal General gastrointestinal: normal bowel sounds, soft, no splenomegaly, no tenderness, no umbilical hernia, no ventral hernia - Integumentary Integumentary: normal, normal turgor - Psychiatric Psychiatric: no A&O x's 3, no appropriate affect, no intact judgment & insight Results CBC & Chem 7: 06/01/17 04:45 06/01/17 04:45 Labs: Abnormal Lab Results - Last 24 Hours (Table) 05/26/17 05/31/17 05/31/17 Range/Units 09:55 13:29 14:48 WBC (3.8-10.6) k/uL RBC (4.30-5.90) m/uL Hgb (13.0-17.5) gm/dL RDW (11.5-15.5) % Neutrophils # (1.3-7.7) k/uL Lymphocytes # (1.0-4.8) k/uL INR (<1.2) ABG pH (7.35-7.45) ABG pCO2 (35-45) mmHg ABG pO2 (83-108) mmHg ABG Total CO2 (19-24) mmol/L ABG O2 Saturation (94-97) % Sodium (137-145) mmol/L Potassium (3.5-5.1) mmol/L Chloride (98-107) mmol/L Glucose (74-99) mg/dL POC Glucose (mg/dL) 214 H 139 H (75-99) mg/dL Calcium (8.4-10.2) mg/dL Total Protein (6.3-8.2) g/dL Albumin (3.5-5.0) g/dL Crossmatch See Detail 05/31/17 05/31/17 05/31/17 Range/Units 16:25 16:25 16:25 WBC 18.3 H (3.8-10.6) k/uL RBC (4.30-5.90) m/uL Hgb (13.0-17.5) gm/dL RDW (11.5-15.5) % Neutrophils # 14.9 H (1.3-7.7) k/uL Lymphocytes # (1.0-4.8) k/uL INR 1.2 H (<1.2) ABG pH (7.35-7.45) ABG pCO2 (35-45) mmHg ABG pO2 (83-108) mmHg ABG Total CO2 (19-24) mmol/L ABG O2 Saturation (94-97) % Sodium (137-145) mmol/L Potassium (3.5-5.1) mmol/L Chloride 109 H (98-107) mmol/L Glucose 108 H (74-99) mg/dL POC Glucose (mg/dL) (75-99) mg/dL Calcium 8.1 L (8.4-10.2) mg/dL Total Protein 5.2 L (6.3-8.2) g/dL Albumin 2.8 L (3.5-5.0) g/dL Crossmatch 05/31/17 05/31/17 05/31/17 Range/Units 16:27 16:36 17:15 WBC (3.8-10.6) k/uL RBC (4.30-5.90) m/uL Hgb (13.0-17.5) gm/dL RDW (11.5-15.5) % Neutrophils # (1.3-7.7) k/uL Lymphocytes # (1.0-4.8) k/uL INR (<1.2) ABG pH 7.27 L 7.32 L (7.35-7.45) ABG pCO2 55 H (35-45) mmHg ABG pO2 60 L (83-108) mmHg ABG Total CO2 26 H (19-24) mmol/L ABG O2 Saturation 88.7 L (94-97) % Sodium (137-145) mmol/L Potassium (3.5-5.1) mmol/L Chloride (98-107) mmol/L Glucose (74-99) mg/dL POC Glucose (mg/dL) 106 H (75-99) mg/dL Calcium (8.4-10.2) mg/dL Total Protein (6.3-8.2) g/dL Albumin (3.5-5.0) g/dL Crossmatch 05/31/17 05/31/17 05/31/17 Range/Units 17:44 18:28 18:30 WBC 20.2 H (3.8-10.6) k/uL RBC (4.30-5.90) m/uL Hgb (13.0-17.5) gm/dL RDW 16.0 H (11.5-15.5) % Neutrophils # 17.6 H (1.3-7.7) k/uL Lymphocytes # (1.0-4.8) k/uL INR (<1.2) ABG pH (7.35-7.45) ABG pCO2 (35-45) mmHg ABG pO2 60 L (83-108) mmHg ABG Total CO2 (19-24) mmol/L ABG O2 Saturation 89.5 L (94-97) % Sodium (137-145) mmol/L Potassium (3.5-5.1) mmol/L Chloride (98-107) mmol/L Glucose (74-99) mg/dL POC Glucose (mg/dL) 225 H (75-99) mg/dL Calcium (8.4-10.2) mg/dL Total Protein (6.3-8.2) g/dL Albumin (3.5-5.0) g/dL Crossmatch 05/31/17 05/31/17 05/31/17 Range/Units 18:40 19:48 19:48 WBC (3.8-10.6) k/uL RBC (4.30-5.90) m/uL Hgb (13.0-17.5) gm/dL RDW (11.5-15.5) % Neutrophils # (1.3-7.7) k/uL Lymphocytes # (1.0-4.8) k/uL INR (<1.2) ABG pH (7.35-7.45) ABG pCO2 (35-45) mmHg ABG pO2 125 H (83-108) mmHg ABG Total CO2 26 H (19-24) mmol/L ABG O2 Saturation 99.0 H (94-97) % Sodium (137-145) mmol/L Potassium (3.5-5.1) mmol/L Chloride (98-107) mmol/L Glucose (74-99) mg/dL POC Glucose (mg/dL) 256 H 247 H (75-99) mg/dL Calcium (8.4-10.2) mg/dL Total Protein (6.3-8.2) g/dL Albumin (3.5-5.0) g/dL Crossmatch 05/31/17 05/31/17 05/31/17 Range/Units 20:38 21:07 21:57 WBC (3.8-10.6) k/uL RBC (4.30-5.90) m/uL Hgb (13.0-17.5) gm/dL RDW (11.5-15.5) % Neutrophils # (1.3-7.7) k/uL Lymphocytes # (1.0-4.8) k/uL INR (<1.2) ABG pH (7.35-7.45) ABG pCO2 (35-45) mmHg ABG pO2 (83-108) mmHg ABG Total CO2 (19-24) mmol/L ABG O2 Saturation (94-97) % Sodium (137-145) mmol/L Potassium (3.5-5.1) mmol/L Chloride (98-107) mmol/L Glucose (74-99) mg/dL POC Glucose (mg/dL) 206 H 197 H 196 H (75-99) mg/dL Calcium (8.4-10.2) mg/dL Total Protein (6.3-8.2) g/dL Albumin (3.5-5.0) g/dL Crossmatch 05/31/17 05/31/17 05/31/17 Range/Units 22:00 22:00 22:00 WBC 18.2 H (3.8-10.6) k/uL RBC (4.30-5.90) m/uL Hgb 12.8 L (13.0-17.5) gm/dL RDW 16.2 H (11.5-15.5) % Neutrophils # 16.6 H (1.3-7.7) k/uL Lymphocytes # 0.6 L (1.0-4.8) k/uL INR 1.2 H (<1.2) ABG pH (7.35-7.45) ABG pCO2 (35-45) mmHg ABG pO2 (83-108) mmHg ABG Total CO2 (19-24) mmol/L ABG O2 Saturation (94-97) % Sodium 136 L (137-145) mmol/L Potassium 5.8 H (3.5-5.1) mmol/L Chloride (98-107) mmol/L Glucose 209 H (74-99) mg/dL POC Glucose (mg/dL) (75-99) mg/dL Calcium 8.3 L (8.4-10.2) mg/dL Total Protein (6.3-8.2) g/dL Albumin (3.5-5.0) g/dL Crossmatch 05/31/17 05/31/17 05/31/17 Range/Units 22:16 22:59 23:54 WBC (3.8-10.6) k/uL RBC (4.30-5.90) m/uL Hgb (13.0-17.5) gm/dL RDW (11.5-15.5) % Neutrophils # (1.3-7.7) k/uL Lymphocytes # (1.0-4.8) k/uL INR (<1.2) ABG pH (7.35-7.45) ABG pCO2 (35-45) mmHg ABG pO2 117 H (83-108) mmHg ABG Total CO2 25 H (19-24) mmol/L ABG O2 Saturation 98.0 H (94-97) % Sodium (137-145) mmol/L Potassium (3.5-5.1) mmol/L Chloride (98-107) mmol/L Glucose (74-99) mg/dL POC Glucose (mg/dL) 206 H 208 H (75-99) mg/dL Calcium (8.4-10.2) mg/dL Total Protein (6.3-8.2) g/dL Albumin (3.5-5.0) g/dL Crossmatch 06/01/17 06/01/17 06/01/17 Range/Units 00:50 00:51 02:01 WBC (3.8-10.6) k/uL RBC (4.30-5.90) m/uL Hgb (13.0-17.5) gm/dL RDW (11.5-15.5) % Neutrophils # (1.3-7.7) k/uL Lymphocytes # (1.0-4.8) k/uL INR (<1.2) ABG pH (7.35-7.45) ABG pCO2 (35-45) mmHg ABG pO2 (83-108) mmHg ABG Total CO2 (19-24) mmol/L ABG O2 Saturation (94-97) % Sodium (137-145) mmol/L Potassium 5.7 H (3.5-5.1) mmol/L Chloride (98-107) mmol/L Glucose (74-99) mg/dL POC Glucose (mg/dL) 201 H 192 H (75-99) mg/dL Calcium (8.4-10.2) mg/dL Total Protein (6.3-8.2) g/dL Albumin (3.5-5.0) g/dL Crossmatch 06/01/17 06/01/17 06/01/17 Range/Units 03:04 04:25 04:45 WBC 14.9 H (3.8-10.6) k/uL RBC 4.24 L (4.30-5.90) m/uL Hgb 12.8 L (13.0-17.5) gm/dL RDW (11.5-15.5) % Neutrophils # 13.2 H (1.3-7.7) k/uL Lymphocytes # 0.9 L (1.0-4.8) k/uL INR (<1.2) ABG pH (7.35-7.45) ABG pCO2 (35-45) mmHg ABG pO2 (83-108) mmHg ABG Total CO2 (19-24) mmol/L ABG O2 Saturation (94-97) % Sodium (137-145) mmol/L Potassium (3.5-5.1) mmol/L Chloride (98-107) mmol/L Glucose (74-99) mg/dL POC Glucose (mg/dL) 160 H 182 H (75-99) mg/dL Calcium (8.4-10.2) mg/dL Total Protein (6.3-8.2) g/dL Albumin (3.5-5.0) g/dL Crossmatch 06/01/17 06/01/17 06/01/17 Range/Units 04:45 04:45 05:10 WBC (3.8-10.6) k/uL RBC (4.30-5.90) m/uL Hgb (13.0-17.5) gm/dL RDW (11.5-15.5) % Neutrophils # (1.3-7.7) k/uL Lymphocytes # (1.0-4.8) k/uL INR 1.2 H (<1.2) ABG pH (7.35-7.45) ABG pCO2 (35-45) mmHg ABG pO2 (83-108) mmHg ABG Total CO2 26 H (19-24) mmol/L ABG O2 Saturation 98.0 H (94-97) % Sodium (137-145) mmol/L Potassium 5.4 H (3.5-5.1) mmol/L Chloride 108 H (98-107) mmol/L Glucose 182 H (74-99) mg/dL POC Glucose (mg/dL) (75-99) mg/dL Calcium 8.2 L (8.4-10.2) mg/dL Total Protein 5.1 L (6.3-8.2) g/dL Albumin 2.7 L (3.5-5.0) g/dL Crossmatch 06/01/17 06/01/17 06/01/17 Range/Units 05:36 06:40 08:15 WBC (3.8-10.6) k/uL RBC (4.30-5.90) m/uL Hgb (13.0-17.5) gm/dL RDW (11.5-15.5) % Neutrophils # (1.3-7.7) k/uL Lymphocytes # (1.0-4.8) k/uL INR (<1.2) ABG pH (7.35-7.45) ABG pCO2 (35-45) mmHg ABG pO2 (83-108) mmHg ABG Total CO2 (19-24) mmol/L ABG O2 Saturation (94-97) % Sodium (137-145) mmol/L Potassium (3.5-5.1) mmol/L Chloride (98-107) mmol/L Glucose (74-99) mg/dL POC Glucose (mg/dL) 169 H 169 H 183 H (75-99) mg/dL Calcium (8.4-10.2) mg/dL Total Protein (6.3-8.2) g/dL Albumin (3.5-5.0) g/dL Crossmatch 06/01/17 06/01/17 06/01/17 Range/Units 09:18 10:03 11:12 WBC (3.8-10.6) k/uL RBC (4.30-5.90) m/uL Hgb (13.0-17.5) gm/dL RDW (11.5-15.5) % Neutrophils # (1.3-7.7) k/uL Lymphocytes # (1.0-4.8) k/uL INR (<1.2) ABG pH (7.35-7.45) ABG pCO2 (35-45) mmHg ABG pO2 (83-108) mmHg ABG Total CO2 (19-24) mmol/L ABG O2 Saturation (94-97) % Sodium (137-145) mmol/L Potassium (3.5-5.1) mmol/L Chloride (98-107) mmol/L Glucose (74-99) mg/dL POC Glucose (mg/dL) 179 H 200 H 172 H (75-99) mg/dL Calcium (8.4-10.2) mg/dL Total Protein (6.3-8.2) g/dL Albumin (3.5-5.0) g/dL Crossmatch 06/01/17 06/01/17 Range/Units 11:59 13:04 WBC (3.8-10.6) k/uL RBC (4.30-5.90) m/uL Hgb (13.0-17.5) gm/dL RDW (11.5-15.5) % Neutrophils # (1.3-7.7) k/uL Lymphocytes # (1.0-4.8) k/uL INR (<1.2) ABG pH (7.35-7.45) ABG pCO2 (35-45) mmHg ABG pO2 (83-108) mmHg ABG Total CO2 (19-24) mmol/L ABG O2 Saturation (94-97) % Sodium (137-145) mmol/L Potassium (3.5-5.1) mmol/L Chloride (98-107) mmol/L Glucose (74-99) mg/dL POC Glucose (mg/dL) 155 H 154 H (75-99) mg/dL Calcium (8.4-10.2) mg/dL Total Protein (6.3-8.2) g/dL Albumin (3.5-5.0) g/dL Crossmatch Thrombosis Risk Factor Assmnt - DVT/VTE Prophylaxis DVT/VTE Prophylaxis: Pharmacologic Prophylaxis ordered, Mechanical Prophylaxis ordered - Choose All That Apply Each Factor Represents 1 point: Abnormal pulmonary function (COPD), Obesity ( BMI >25) Each Risk Factor Represents 2 Points: Age 61-74 years, Central venous access Each Risk Factor Represents 5 Points: Major surgery lasting over 3 hours Thrombosis Risk Factor Assessment Total Risk Factor Score: 11 Thrombosis Risk Factor Assessment Level: High Risk Assessment and Plan Plan: Assessment and plan: 1. Acute vent dependent respiratory failure post CABG 4. Continue aggressive pulmonary toileting, continue to wean down his FiO2 to 40%, his currently on 10 of PEEP, patient is being checked for weaning parameter and hopefully he will be extubated in the next few hours. 2. Coronary artery disease status post CABG with 4 vessel bypass involving DAY to LAD and saphenous vein graft to PDA, PLV and diagonal. Continue patient on Lipitor 40 mg per oral gastric tube once every day as well as Lopressor 12.5 mg per orogastric tube twice every day. 3. History of CAD with prior stent in 2012. Maintain the patient on Lipitor 40 mg per OGT once a day as well as metoprolol 12.5 mg per OGT twice every day. 3. Diabetes mellitus type 2. Currently on insulin drip. 4. Morbid obesity. Patient would need to go into the a full weight loss program without the need for any surgical intervention. 5. History of COPD without exacerbation. Continue aggressive pulmonary toileting with DuoNeb. 6. Hypertension hypertensive cardio vascular disease. Continue patient on metoprolol 12.5 mg per OGT twice every day. 7. Hyperlipidemia. Continue lipitor increased to 40mg daily. 8. Thank you for the consult we will follow the patient with you. CC: Dr. David Palomares
[2017-06-01 18:33] LABS: Glucose,Whole Blood 144 mg/dL (75-99)
[2017-06-01 18:58] LABS: Glucose,Whole Blood 138 mg/dL (75-99)
[2017-06-01 20:06] LABS: Glucose,Whole Blood 121 mg/dL (75-99)
[2017-06-01] MEDS: SENNOSIDES-DOCUSATE SODIUM 1 EACH TAB PO SCH (20:17)
[2017-06-01 21:13] LABS: Glucose,Whole Blood 113 mg/dL (75-99)
[2017-06-01 22:08] LABS: Glucose,Whole Blood 133 mg/dL (75-99)
[2017-06-01 23:04] LABS: Glucose,Whole Blood 120 mg/dL (75-99)
[2017-06-02 00:05] LABS: Glucose,Whole Blood 113 mg/dL (75-99)
[2017-06-02] MEDS: PROPOFOL 1,000 MG/100 ML VIAL IV SCH ×4 (00:24→08:38)
[2017-06-02 01:12] LABS: Glucose,Whole Blood 136 mg/dL (75-99)
[2017-06-02] MEDS: MORPHINE SULFATE 2 MG/ML SYRINGE IVP PRN (02:13)
[2017-06-02 02:21] LABS: Glucose,Whole Blood 151 mg/dL (75-99)
[2017-06-02] MEDS: IPRATROPIUM-ALBUTEROL 3 ML NEB INHALATION SCH ×5 (03:07→20:16)
[2017-06-02 03:08] LABS: Glucose,Whole Blood 143 mg/dL (75-99)
[2017-06-02] MEDS: INSULIN REGULAR 100 UNIT in SODIUM CHLORIDE 0.9% 100 ML IV SCH ×2 (03:28→15:58)
[2017-06-02] MEDS: HYDROcodone/APAP 5-325MG 1 EACH TAB PO PRN ×5 (04:06→20:21)
[2017-06-02 04:20] LABS: Glucose,Whole Blood 129 mg/dL (75-99)
[2017-06-02 05:04] LABS: Glucose,Whole Blood 139 mg/dL (75-99)
[2017-06-02 05:12] LABS: Ionized Calcium 5.1 mg/dL (4.5-5.3)
[2017-06-02 05:13] LABS: Basophils % (A) 0 %; CH 29.4; CHCM 30.9; Eosinophils # (A) 0.1 k/uL (0-0.7); Eosinophils % (A) 1 %; HCT 36.5 % (39.0-53.0); HDW 2.78; HGB 11.4 gm/dL (13.0-17.5); Hypochromasia Slight; Luc # (Auto) 0.17; Luc % (Auto) 1; Lymphocytes # (A) 1.4 k/uL (1.0-4.8); Lymphocytes % (A) 12 %; MCH 29.9 pg (25.0-35.0); MCHC 31.3 g/dL (31.0-37.0); MCV 95.7 fL (80.0-100.0); Mean Platelet Volume 7.2; Monocytes # (A) 0.5 k/uL (0-1.0); Monocytes % (A) 4 %; Neutrophils # (A) 9.9 k/uL (1.3-7.7); Neutrophils % (A) 82 %; RBC 3.81 m/uL (4.30-5.90); RDW 15.5 % (11.5-15.5); WBC 12.1 k/uL (3.8-10.6); WBC (Perox) 12.46
[2017-06-02 05:20] LABS: ALT 24 U/L (21-72); AST 23 U/L (17-59); Alkaline Phosphatase 44 U/L (38-126); Anion Gap 4 mmol/L; Blood Urea Nitrogen 14 mg/dL (9-20); Calcium 8.4 mg/dL (8.4-10.2); Carbon Dioxide 26 mmol/L (22-30); Chloride 107 mmol/L (98-107); Glucose 120 mg/dL (74-99); Non-African American GFR(MDRD) >60 (>60 ml/min/1.73 sqM); Phosphorus 2.2 mg/dL (2.5-4.5); Sodium 137 mmol/L (137-145); Total Bilirubin 0.5 mg/dL (0.2-1.3); Total Protein 5.2 g/dL (6.3-8.2)
[2017-06-02 05:38] LABS: ABG Base Excess -1.8 mmol/L; ABG HCO3 25 mmol/L (21-25); ABG Hematocrit 48 % (34.0-46.0); ABG Oxygen Saturation 99.3 % (94-97); ABG PCO2 50 mmHg (35-45); ABG PH 7.31 (7.35-7.45); ABG PO2 167 mmHg (83-108); ABG TCO2 26 mmol/L (19-24)
[2017-06-02 05:39] LABS: ABG Base Excess -2.7 mmol/L; ABG HCO3 23 mmol/L (21-25); ABG Hematocrit 43 % (34.0-46.0); ABG Oxygen Saturation 97.9 % (94-97); ABG PCO2 45 mmHg (35-45); ABG PH 7.33 (7.35-7.45); ABG PO2 111 mmHg (83-108); ABG TCO2 24 mmol/L (19-24)
[2017-06-02 05:40] LABS: ABG Base Excess -3.7 mmol/L; ABG HCO3 22 mmol/L (21-25); ABG Hematocrit 40 % (34.0-46.0); ABG Oxygen Saturation 99.9 % (94-97); ABG PCO2 44 mmHg (35-45); ABG PH 7.32 (7.35-7.45); ABG PO2 330 mmHg (83-108); ABG TCO2 23 mmol/L (19-24)
[2017-06-02 05:41] LABS: ABG Base Excess -4.1 mmol/L; ABG HCO3 23 mmol/L (21-25); ABG Hematocrit 38 % (34.0-46.0); ABG Oxygen Saturation 96.1 % (94-97); ABG PCO2 53 mmHg (35-45); ABG PH 7.26 (7.35-7.45); ABG PO2 96 mmHg (83-108); ABG TCO2 25 mmol/L (19-24)
[2017-06-02 05:42] LABS: ABG Base Excess -3.4 mmol/L; ABG HCO3 23 mmol/L (21-25); ABG Hematocrit 39 % (34.0-46.0); ABG Oxygen Saturation 99.8 % (94-97); ABG PCO2 49 mmHg (35-45); ABG PH 7.29 (7.35-7.45); ABG PO2 246 mmHg (83-108); ABG TCO2 24 mmol/L (19-24)
[2017-06-02 05:43] LABS: ABG Base Excess -1.3 mmol/L; ABG HCO3 23 mmol/L (21-25); ABG Hematocrit 39 % (34.0-46.0); ABG Oxygen Saturation 99.5 % (94-97); ABG PCO2 41 mmHg (35-45); ABG PH 7.38 (7.35-7.45); ABG PO2 169 mmHg (83-108); ABG TCO2 25 mmol/L (19-24)
[2017-06-02 05:43] LABS: ABG PCO2 41 mmHg (35-45); ABG PH 7.37 (7.35-7.45); ABG PO2 273 mmHg (83-108)
[2017-06-02 05:44] LABS: ABG Base Excess -1.4 mmol/L; ABG HCO3 23 mmol/L (21-25); ABG Hematocrit 37 % (34.0-46.0); ABG Oxygen Saturation 99.9 % (94-97); ABG TCO2 25 mmol/L (19-24)
[2017-06-02 05:44] LABS: ABG Base Excess -1.2 mmol/L; ABG HCO3 24 mmol/L (21-25); ABG PCO2 42 mmHg (35-45); ABG PH 7.37 (7.35-7.45); ABG PO2 237 mmHg (83-108); ABG TCO2 25 mmol/L (19-24)
[2017-06-02 05:45] LABS: ABG Base Excess -2.9 mmol/L; ABG HCO3 22 mmol/L (21-25); ABG Hematocrit 48 % (34.0-46.0); ABG Oxygen Saturation 97.9 % (94-97); ABG PCO2 43 mmHg (35-45); ABG PH 7.34 (7.35-7.45); ABG PO2 109 mmHg (83-108); ABG TCO2 24 mmol/L (19-24)
[2017-06-02 05:45] LABS: ABG Hematocrit 41 % (34.0-46.0); ABG Oxygen Saturation 99.8 % (94-97)
[2017-06-02] MEDS ORDERED: POTASSIUM PHOSPHATE 10 MMOL in SODIUM CHLORIDE 0.9% 100 ML IV ONE (05:53)
[2017-06-02 05:54] LABS: ABG HCO3 26 mmol/L (21-25); ABG PCO2 35 mmHg (35-45); ABG PH 7.48 (7.35-7.45); ABG PO2 68 mmHg (83-108); ABG TCO2 27 mmol/L (19-24)
[2017-06-02 06:18] LABS: Glucose,Whole Blood 114 mg/dL (75-99)
[2017-06-02 06:56] LABS: Glucose,Whole Blood 109 mg/dL (75-99)
--- NOTE | 2017-06-02 07:45 | XR ---
EXAMINATION TYPE: XR chest 1V portable DATE OF EXAM: 06/02/2017 Comparison: 06/01/2017 Clinical History: 67-year-old male post cardiac surgery Findings: ET tube tip at the level of the medial clavicular heads. NG tube courses below the diaphragm but the distal aspect is not well seen. Mediastinal drain is present with a feeding sternotomy wires. Right I J [place]-Kevin catheter with tip in the main pulmonary outflow tract. Left-sided chest tube is present. No appreciable pneumothorax. Heart remains mildly enlarged with small left pleural effusion, interstitial prominence, and focal re trocardiac opacity. Lung volumes are lower than prior with more crowding of the vascular markings. Impression: 1. Query expiratory exam. There are crowded vascular markings, possible mild pulmonary vascular conge stion. 2. Small left effusion with probable postsurgical retrocardiac atelectasis.
--- NOTE | 2017-06-02 07:54 | P.PN ---
Subjective 67-year-old male patient with established diagnosis of coronary artery disease with previous coronary stent, hypertension, diabetes mellitus type 2, COPD, obesity and a strong family history for CAD, who presented to his staff assistant with increased shortness of breath. He had a cardiac catheterization that showed diffuse disease in the LAD with 70% stenosis in the midportion 70% stenosis in the large diagonal branch proximal circumflex occlusion and a heavily calcified right coronary artery with a 80-90% stenosis in the distal RCA. The patient was referred to CT surgery and the patient underwent four- vessel bypass surgery today. Currently is postop. He still intubated on a mechanical ventilator. His sedated with Diprivan. He is an assist-control mode of ventilation with a rate of 12, tidal volume of 700, FiO2 of 100% and a PEEP of 5. The chest x-ray and a blood gas are still pending for now. Meanwhile, hemodynamically the patient is doing well. He is hypertensive and he will be started on Celebrex drip for blood pressure control. His cardiac output is at 8.1 with an index of 3.2. He has mediastinal chest tube and left pleural chest tube. Cardiac rhythm is sinus and he has a backup pacemaker. His blood sugar is at 106. He is currently on insulin drip for blood sugar control. No other significant events . Producing adequate amount of urine output. His peak pressures around 24. As I'm dictating, the blood gases arrived at pH of 7.27 with a pCO2 of 54 and pO2 of 98. I made recommendations to increase the tidal volume to 750 and increase the respiratory rate up to 20. His FiO2 will be gradually wean down as tolerated to maintain a saturation above 92%. On 06/01/2017 the patient is being seen in follow-up. I was unable to wean off this patient from the mechanical ventilator. He became acutely hypoxic and had to increase the PEEP up to 15 and gradually moved his tidal volume down to 550. I kept his peak pressures around 28. Static pressures around 27. FiO2 this morning is down to 40%. The rest of the vent settings include an assist- control at the rate of 20, FiO2 of 40%, PEEP of 15 and tidal volume of 550. The patient is doing well. The patient is sedated and is calm and comfortable currently on 40 mics of the prevent. Chest x-ray from today shows improved aeration of the lungs bilaterally. There is improving and the central vascular congestion. There is also patchy left basilar atelectasis and the chest tubes are in place without evidence of pneumothorax. The patient is stable. The patient is on no pressors and the patient is producing adequate amount of urine output. The mediastinal chest tube has drained 90 mL of suicide on this material overnight and 170 mL since surgery and the left pleural chest tube has drained 30 mL of drainage overnight and 85 mL since surgery. The cardiac index is at 3.1. PA pressure is 42/27. No other significant events overnight otherwise. On 06/02/2017 I'm seeing this patient in follow-up. The patient remains intubated and he is still on a mechanical ventilator. His postop day #2. Noted the patient was having difficulties with oxygenation for that reason the weaning process was delayed. Currently is on 8 of PEEP with a FiO2 of 40% and a tidal volume of 550 with a rate of 20. The morning blood gases showed a pH of 7. 48 and a pCO2 of 35 and pO2 of 68. Based on that the FiO2 was brought up to 50%. Upon my earlier morning assessment, the patient's airway pressure were quite low under reasonable with a pressure of 24. He was pulse oxing 97% on room air. Chest x-ray shows postsurgical changes with atelectasis and lung bases bilaterally. There was no evidence of any pneumothorax and leads tube and the rest of the tubes are all in good location. Based on that I dropped a PEEP down to 5 and we are still monitoring his oxygenation. A possibly be a candidate for further weaning if his oxygenation remains stable. Meanwhile the patient remains sedated on Diprivan at 40 mics. He is calm and comfortable. He is hemodynamically stable. The cardiac output is 5.8 with an index of 2.4. His PA pressures around 34/20. He has adequate urine output. Has no pressors. Sternum stable clean and intact. MARITZA drain is present in the lower extremities bilaterally and there is no active drainage. The output from the chest tube is also minimal. His cardiac rhythm is sinus. Objective - Vital Signs Vital signs: Vital Signs Temp 99.7 F H 06/02/17 04:00 Pulse 98 06/02/17 07:35 Resp 24 06/02/17 06:00 BP 131/73 06/02/17 03:00 Pulse Ox 94 L 06/02/17 06:00 Intake & Output 06/01/17 06/02/17 06/02/17 18:59 06:59 18:59 Intake Total 1268.018 2385.295 79 Output Total 2446 1780 75 Balance -1383.331 -596.705 4 Weight 132.7 kg Intake: IV 688 613 79 0.9NaCl 9 45 ACETAMINOPHEN IV (For NPO 100 ) 1,000 mg In Empty Bag 1 bag @ 400 mls/hr IVPB Q6HR ASNG Rx#:[id number] Lactated Ringers 1,000 ml 400 350 20 @ 20 mls/hr IV .Q24H SANG Rx#:[id number] Potassium Phosphate 10 50 mmol In Sodium Chloride 0 .9% 100 ml @ 50 mls/hr IV ONCE ONE Rx#:[id number] cardiac output 80 110 pressure bag 99 108 9 Intake, IV Titration 374.669 470.295 Amount Insulin Regular 100 unit 129.816 101.976 In Sodium Chloride 0.9% 100 ml @ Per Protocol IV .Q0M SANG Rx#:[id number] Propofol 1,000 mg In 100 244.853 368.319 ml @ Titrate IV .Q0M SANG Rx#:[id number] Oral 100 Output: Chest Tube Drainage 106 120 20 Chest Tube Bilateral 101 120 0 Mediastinal Chest Tube Left Lateral 5 0 20 Chest Drainage 45 30 0 Left Calf 30 30 0 Right Calf 15 0 0 Urine 2295 1630 55 Uretheral (Ly) 440 Other: Voiding Method Indwelling Catheter Indwelling Catheter ABP, PAP, CO, CI - Last Documented Arterial Blood Pressure 118/58 Pulmonary Artery Pressure 36/20 Cardiac Output 5.2 Cardiac Index 2.1 - Exam The patient is sedated, comfortable on a mechanical ventilator. He has a right IJ [place] catheter.Head exam was generally normal. There was no scleral icterus or corneal arcus. Mucous membranes were moist. Neck was supple and without jugular venous distension, thyromegaly, or carotid bruits. Carotids were easily palpable bilaterally. There was no adenopathy. Lung sounds are diminished bilaterally otherwise is no wheezes or rhonchi or any crackles. Sternum stable clean and intact. Heart sounds are regular, S1 and S2 is present , rhythm is sinus, epicardial pacemaker wires are present, sternum is stable and intact. All of the chest tubes are in place. The patient has a Heart Hugger.Abdominal exam revealed normal bowel sounds. The abdomen was soft, non- tender, and without masses, organomegaly, or appreciable enlargement of the abdominal aorta.Examination of the extremities revealed easily palpable radial, femoral and pedal pulses. There was no cyanosis, clubbing or edema. Neurologically the patient is sedated yet is easily arousable. He can squeeze his hands bilaterally and weak and his toes to commands. Skeletal examination cannot be done yet there is no obvious joint deformities or arthritis.Examination of the skin revealed no evidence of significant rashes, suspicious appearing nevi or other concerning lesions. All of the wounds over the anterior chest and lower extremities are dry clean and intact - Labs CBC & Chem 7: 06/02/17 04:49 06/02/17 04:49 Labs: Abnormal Lab Results - Last 24 Hours (Table) 05/31/17 05/31/17 05/31/17 Range/Units 08:56 10:21 11:12 WBC (3.8-10.6) k/uL RBC (4.30-5.90) m/uL Hgb (13.0-17.5) gm/dL Hct (39.0-53.0) % Neutrophils # (1.3-7.7) k/uL ABG pH 7.31 L 7.33 L 7.32 L (7.35-7.45) ABG pCO2 50 H (35-45) mmHg ABG pO2 167 H 111 H 330 H (83-108) mmHg ABG HCO3 (21-25) mmol/L ABG Total CO2 26 H (19-24) mmol/L ABG O2 Saturation 99.3 H 97.9 H 99.9 H (94-97) % ABG Hematocrit 48 H (34.0-46.0) % ABG Potassium 5.8 H 5.7 H 4.7 H (3.4-4.5) mmol/L Glucose (74-99) mg/dL POC Glucose (mg/dL) (75-99) mg/dL Phosphorus (2.5-4.5) mg/dL Total Protein (6.3-8.2) g/dL Albumin (3.5-5.0) g/dL Arterial Blood Potassium 5.8 H 5.7 H 4.7 H (3.4-4.5) mmol/L 05/31/17 05/31/17 05/31/17 Range/Units 11:34 11:49 12:21 WBC (3.8-10.6) k/uL RBC (4.30-5.90) m/uL Hgb (13.0-17.5) gm/dL Hct (39.0-53.0) % Neutrophils # (1.3-7.7) k/uL ABG pH 7.26 L 7.29 L (7.35-7.45) ABG pCO2 53 H 49 H (35-45) mmHg ABG pO2 246 H 169 H (83-108) mmHg ABG HCO3 (21-25) mmol/L ABG Total CO2 25 H 25 H (19-24) mmol/L ABG O2 Saturation 99.8 H 99.5 H (94-97) % ABG Hematocrit (34.0-46.0) % ABG Potassium 4.8 H 5.0 H 5.0 H (3.4-4.5) mmol/L Glucose (74-99) mg/dL POC Glucose (mg/dL) (75-99) mg/dL Phosphorus (2.5-4.5) mg/dL Total Protein (6.3-8.2) g/dL Albumin (3.5-5.0) g/dL Arterial Blood Potassium 4.8 H 5.0 H 5.0 H (3.4-4.5) mmol/L 05/31/17 05/31/17 05/31/17 Range/Units 12:54 13:29 14:47 WBC (3.8-10.6) k/uL RBC (4.30-5.90) m/uL Hgb (13.0-17.5) gm/dL Hct (39.0-53.0) % Neutrophils # (1.3-7.7) k/uL ABG pH 7.34 L (7.35-7.45) ABG pCO2 (35-45) mmHg ABG pO2 273 H 237 H 109 H (83-108) mmHg ABG HCO3 (21-25) mmol/L ABG Total CO2 25 H 25 H (19-24) mmol/L ABG O2 Saturation 99.9 H 99.8 H 97.9 H (94-97) % ABG Hematocrit 48 H (34.0-46.0) % ABG Potassium 5.3 H 5.1 H (3.4-4.5) mmol/L Glucose (74-99) mg/dL POC Glucose (mg/dL) (75-99) mg/dL Phosphorus (2.5-4.5) mg/dL Total Protein (6.3-8.2) g/dL Albumin (3.5-5.0) g/dL Arterial Blood Potassium 5.3 H 5.1 H (3.4-4.5) mmol/L 06/01/17 06/01/17 06/01/17 Range/Units 08:15 09:18 10:03 WBC (3.8-10.6) k/uL RBC (4.30-5.90) m/uL Hgb (13.0-17.5) gm/dL Hct (39.0-53.0) % Neutrophils # (1.3-7.7) k/uL ABG pH (7.35-7.45) ABG pCO2 (35-45) mmHg ABG pO2 (83-108) mmHg ABG HCO3 (21-25) mmol/L ABG Total CO2 (19-24) mmol/L ABG O2 Saturation (94-97) % ABG Hematocrit (34.0-46.0) % ABG Potassium (3.4-4.5) mmol/L Glucose (74-99) mg/dL POC Glucose (mg/dL) 183 H 179 H 200 H (75-99) mg/dL Phosphorus (2.5-4.5) mg/dL Total Protein (6.3-8.2) g/dL Albumin (3.5-5.0) g/dL Arterial Blood Potassium (3.4-4.5) mmol/L 06/01/17 06/01/17 06/01/17 Range/Units 11:12 11:59 13:04 WBC (3.8-10.6) k/uL RBC (4.30-5.90) m/uL Hgb (13.0-17.5) gm/dL Hct (39.0-53.0) % Neutrophils # (1.3-7.7) k/uL ABG pH (7.35-7.45) ABG pCO2 (35-45) mmHg ABG pO2 (83-108) mmHg ABG HCO3 (21-25) mmol/L ABG Total CO2 (19-24) mmol/L ABG O2 Saturation (94-97) % ABG Hematocrit (34.0-46.0) % ABG Potassium (3.4-4.5) mmol/L Glucose (74-99) mg/dL POC Glucose (mg/dL) 172 H 155 H 154 H (75-99) mg/dL Phosphorus (2.5-4.5) mg/dL Total Protein (6.3-8.2) g/dL Albumin (3.5-5.0) g/dL Arterial Blood Potassium (3.4-4.5) mmol/L 06/01/17 06/01/17 06/01/17 Range/Units 14:02 15:05 16:01 WBC (3.8-10.6) k/uL RBC (4.30-5.90) m/uL Hgb (13.0-17.5) gm/dL Hct (39.0-53.0) % Neutrophils # (1.3-7.7) k/uL ABG pH (7.35-7.45) ABG pCO2 (35-45) mmHg ABG pO2 (83-108) mmHg ABG HCO3 (21-25) mmol/L ABG Total CO2 (19-24) mmol/L ABG O2 Saturation (94-97) % ABG Hematocrit (34.0-46.0) % ABG Potassium (3.4-4.5) mmol/L Glucose (74-99) mg/dL POC Glucose (mg/dL) 161 H 135 H 125 H (75-99) mg/dL Phosphorus (2.5-4.5) mg/dL Total Protein (6.3-8.2) g/dL Albumin (3.5-5.0) g/dL Arterial Blood Potassium (3.4-4.5) mmol/L 06/01/17 06/01/17 06/01/17 Range/Units 16:01 17:13 18:08 WBC (3.8-10.6) k/uL RBC (4.30-5.90) m/uL Hgb (13.0-17.5) gm/dL Hct (39.0-53.0) % Neutrophils # (1.3-7.7) k/uL ABG pH (7.35-7.45) ABG pCO2 (35-45) mmHg ABG pO2 77 L (83-108) mmHg ABG HCO3 26 H (21-25) mmol/L ABG Total CO2 27 H (19-24) mmol/L ABG O2 Saturation (94-97) % ABG Hematocrit (34.0-46.0) % ABG Potassium (3.4-4.5) mmol/L Glucose (74-99) mg/dL POC Glucose (mg/dL) 107 H 144 H (75-99) mg/dL Phosphorus (2.5-4.5) mg/dL Total Protein (6.3-8.2) g/dL Albumin (3.5-5.0) g/dL Arterial Blood Potassium (3.4-4.5) mmol/L 06/01/17 06/01/17 06/01/17 Range/Units 18:55 20:05 21:12 WBC (3.8-10.6) k/uL RBC (4.30-5.90) m/uL Hgb (13.0-17.5) gm/dL Hct (39.0-53.0) % Neutrophils # (1.3-7.7) k/uL ABG pH (7.35-7.45) ABG pCO2 (35-45) mmHg ABG pO2 (83-108) mmHg ABG HCO3 (21-25) mmol/L ABG Total CO2 (19-24) mmol/L ABG O2 Saturation (94-97) % ABG Hematocrit (34.0-46.0) % ABG Potassium (3.4-4.5) mmol/L Glucose (74-99) mg/dL POC Glucose (mg/dL) 138 H 121 H 113 H (75-99) mg/dL Phosphorus (2.5-4.5) mg/dL Total Protein (6.3-8.2) g/dL Albumin (3.5-5.0) g/dL Arterial Blood Potassium (3.4-4.5) mmol/L 06/01/17 06/01/17 06/02/17 Range/Units 22:06 23:02 00:04 WBC (3.8-10.6) k/uL RBC (4.30-5.90) m/uL Hgb (13.0-17.5) gm/dL Hct (39.0-53.0) % Neutrophils # (1.3-7.7) k/uL ABG pH (7.35-7.45) ABG pCO2 (35-45) mmHg ABG pO2 (83-108) mmHg ABG HCO3 (21-25) mmol/L ABG Total CO2 (19-24) mmol/L ABG O2 Saturation (94-97) % ABG Hematocrit (34.0-46.0) % ABG Potassium (3.4-4.5) mmol/L Glucose (74-99) mg/dL POC Glucose (mg/dL) 133 H 120 H 113 H (75-99) mg/dL Phosphorus (2.5-4.5) mg/dL Total Protein (6.3-8.2) g/dL Albumin (3.5-5.0) g/dL Arterial Blood Potassium (3.4-4.5) mmol/L 06/02/17 06/02/17 06/02/17 Range/Units 01:11 02:19 03:06 WBC (3.8-10.6) k/uL RBC (4.30-5.90) m/uL Hgb (13.0-17.5) gm/dL Hct (39.0-53.0) % Neutrophils # (1.3-7.7) k/uL ABG pH (7.35-7.45) ABG pCO2 (35-45) mmHg ABG pO2 (83-108) mmHg ABG HCO3 (21-25) mmol/L ABG Total CO2 (19-24) mmol/L ABG O2 Saturation (94-97) % ABG Hematocrit (34.0-46.0) % ABG Potassium (3.4-4.5) mmol/L Glucose (74-99) mg/dL POC Glucose (mg/dL) 136 H 151 H 143 H (75-99) mg/dL Phosphorus (2.5-4.5) mg/dL Total Protein (6.3-8.2) g/dL Albumin (3.5-5.0) g/dL Arterial Blood Potassium (3.4-4.5) mmol/L 06/02/17 06/02/17 06/02/17 Range/Units 04:18 04:49 04:49 WBC 12.1 H (3.8-10.6) k/uL RBC 3.81 L (4.30-5.90) m/uL Hgb 11.4 L (13.0-17.5) gm/dL Hct 36.5 L (39.0-53.0) % Neutrophils # 9.9 H (1.3-7.7) k/uL ABG pH (7.35-7.45) ABG pCO2 (35-45) mmHg ABG pO2 (83-108) mmHg ABG HCO3 (21-25) mmol/L ABG Total CO2 (19-24) mmol/L ABG O2 Saturation (94-97) % ABG Hematocrit (34.0-46.0) % ABG Potassium (3.4-4.5) mmol/L Glucose 120 H (74-99) mg/dL POC Glucose (mg/dL) 129 H (75-99) mg/dL Phosphorus 2.2 L (2.5-4.5) mg/dL Total Protein 5.2 L (6.3-8.2) g/dL Albumin 2.5 L (3.5-5.0) g/dL Arterial Blood Potassium (3.4-4.5) mmol/L 06/02/17 06/02/17 06/02/17 Range/Units 05:02 05:25 06:18 WBC (3.8-10.6) k/uL RBC (4.30-5.90) m/uL Hgb (13.0-17.5) gm/dL Hct (39.0-53.0) % Neutrophils # (1.3-7.7) k/uL ABG pH 7.48 H (7.35-7.45) ABG pCO2 (35-45) mmHg ABG pO2 68 L (83-108) mmHg ABG HCO3 26 H (21-25) mmol/L ABG Total CO2 27 H (19-24) mmol/L ABG O2 Saturation (94-97) % ABG Hematocrit (34.0-46.0) % ABG Potassium (3.4-4.5) mmol/L Glucose (74-99) mg/dL POC Glucose (mg/dL) 139 H 114 H (75-99) mg/dL Phosphorus (2.5-4.5) mg/dL Total Protein (6.3-8.2) g/dL Albumin (3.5-5.0) g/dL Arterial Blood Potassium (3.4-4.5) mmol/L 06/02/17 Range/Units 06:55 WBC (3.8-10.6) k/uL RBC (4.30-5.90) m/uL Hgb (13.0-17.5) gm/dL Hct (39.0-53.0) % Neutrophils # (1.3-7.7) k/uL ABG pH (7.35-7.45) ABG pCO2 (35-45) mmHg ABG pO2 (83-108) mmHg ABG HCO3 (21-25) mmol/L ABG Total CO2 (19-24) mmol/L ABG O2 Saturation (94-97) % ABG Hematocrit (34.0-46.0) % ABG Potassium (3.4-4.5) mmol/L Glucose (74-99) mg/dL POC Glucose (mg/dL) 109 H (75-99) mg/dL Phosphorus (2.5-4.5) mg/dL Total Protein (6.3-8.2) g/dL Albumin (3.5-5.0) g/dL Arterial Blood Potassium (3.4-4.5) mmol/L Assessment and Plan Plan: Assessment 1 multivessel coronary artery disease and the patient is post CABG with 4 vessel bypass involving DAY to LAD and saphenous vein graft to PDA, PLB and diagonal. The patient. The patient is postop day #2. The patient had some difficulties with oxygenation probably later to his morbid obese body habitus and postoperative atelectasis. He required high levels of PEEP which is being gradually weaned down and currently is down to 5 of PEEP. Monitor his oxygenation. Monitor blood gases. Possible weaning and extubation today if he is able to tolerate lower teeth and lower FiO2. He is hemodynamically stable. Sedation holiday is being given a daily basis. Cardiac output and index are adequate. He has adequate urine output. 2 post thoracotomy. The patient remains intubated on a mechanical ventilator. 3 diabetes mellitus currently on insulin drip for blood sugar control, currently insulin drip is on hold 4 obesity 5 COPD 6 hypertension 7 hyperlipidemia Plan Patient is hemodynamically stable. Cut down the PEEP down to 5. Maintained FiO2 of 50%. Repeated blood gases an hour. His oxidation is stable we'll proceed with weaning Diprivan assessing weaning parameters and make further decision on extubation. Keep on hold and monitor blood sugar. Continue monitoring the hemodynamics. We'll continue to follow along with the surgical team. Critically care evaluation. More than 30 minutes. Time with Patient: Greater than 30
[2017-06-02] MEDS: ATORVASTATIN 40 MG TAB PO SCH (08:02)
[2017-06-02] MEDS: PANTOPRAZOLE 40 MG/10 ML VIAL IVP SCH (08:02)
[2017-06-02] MEDS: HEPARIN SODIUM,PORCINE 5,000 UNIT/ML 1 ML VIAL SQ SCH ×4 (08:02→23:10)
[2017-06-02] MEDS: CHLORHEXIDINE GLUCONATE 15 ML CUP MUCOUS MEM SCH (08:02)
[2017-06-02] MEDS: CLOPIDOGREL 75 MG TAB PO SCH (08:02)
[2017-06-02 08:08] LABS: Glucose,Whole Blood 125 mg/dL (75-99)
[2017-06-02] MEDS: METOPROLOL TARTRATE 25 MG TAB PO SCH ×2 (08:23→21:00)
--- NOTE | 2017-06-02 08:34 | P.PN ---
Subjective Progress Note Date: 06/02/17 Principal diagnosis: Symptomatic multivessel coronary artery disease. History of previous myocardial infarction, history of coronary artery disease with stent placement in 2013. Hypertension. Hyperlipidemia. Uncontrolled type 2 diabetes mellitus with admission hemoglobin A1c 10.1%. COPD. Remote smoking history. Morbid obesity. Strong family history of coronary artery disease. Osteoarthritis. POD #2 coronary artery bypass grafting 4 vessels, left internal mammary artery to left anterior descending artery, a reverse greater saphenous vein graft to diagonal artery, a reverse greater saphenous vein graft to posterior descending artery, a reverse greater saphenous vein graft to posterior lateral branch of the right coronary artery. Endoscopic vein harvest of his bilateral greater saphenous vein. Epi-aortic ultrasound. Intraoperative transesophageal echocardiogram. Closure of the sternum using Tritium plating system. The patient remains intubated with mechanical ventilator support. He is currently sedated on Diprivan@50 mcg/kg/m. He is not responding to any verbal stimuli. Objective - Vital Signs Vital signs: Vital Signs Temp 99.7 F H 06/02/17 04:00 Pulse 98 06/02/17 07:35 Resp 22 06/02/17 07:00 BP 131/73 06/02/17 03:00 Pulse Ox 96 06/02/17 07:00 Intake & Output 06/01/17 06/02/17 06/02/17 18:59 06:59 18:59 Intake Total 7137.830 2734.295 79 Output Total 2446 1780 75 Balance -1383.331 -596.705 4 Weight 132.7 kg Intake: IV 688 613 79 0.9NaCl 9 45 ACETAMINOPHEN IV (For NPO 100 ) 1,000 mg In Empty Bag 1 bag @ 400 mls/hr IVPB Q6HR [facility] Rx#:[id number] Lactated Ringers 1,000 ml 400 350 20 @ 20 mls/hr IV .Q24H [facility] Rx#:[id number] Potassium Phosphate 10 50 mmol In Sodium Chloride 0 .9% 100 ml @ 50 mls/hr IV ONCE ONE Rx#:[id number] cardiac output 80 110 pressure bag 99 108 9 Intake, IV Titration 374.669 470.295 Amount Insulin Regular 100 unit 129.816 101.976 In Sodium Chloride 0.9% 100 ml @ Per Protocol IV .Q0M [facility] Rx#:[id number] Propofol 1,000 mg In 100 244.853 368.319 ml @ Titrate IV .Q0M [facility] Rx#:[id number] Oral 100 Output: Chest Tube Drainage 106 120 20 Chest Tube Bilateral 101 120 0 Mediastinal Chest Tube Left Lateral 5 0 20 Chest Drainage 45 30 0 Left Calf 30 30 0 Right Calf 15 0 0 Urine 2295 1630 55 Uretheral (Ly) 440 Other: Voiding Method Indwelling Catheter Indwelling Catheter ABP, PAP, CO, CI - Last Documented Arterial Blood Pressure 102/61 Pulmonary Artery Pressure 37/20 Cardiac Output 5.2 Cardiac Index 2.1 - Constitutional Constitutional Comment(s): He is sedated on Diprivan drip at 50 mcg/kg/m. General appearance: Present: morbidly obese, no acute distress - EENT Eyes: Present: PERRLA - Neck Details: No JVD, no lymphadenopathy. Right IJ Cordis with [place]-Kevin catheter in place. - Respiratory Details: Lung sounds are essentially diminished throughout. Respirations are symmetrical and nonlabored with mechanical ventilator support. Current ventilator settings are AC 20, TV 550, FiO2 50%, PEEP 8. Mediastinal chest tubes remained to low continuous wall suction -20 cm H2O. No air leak present. 100 mL output in the last 8 hours, 230 mL output in the last 24 hours of thin serosanguineous drainage. Left pleural chest tube without air leak, remains to low continuous wall suction at -20 cm H2O. No air leak present. 20 mL output in the last 24 hours. - Cardiovascular Details: Regular rhythm and rate. S1 and S2 present, negative for S3, gallop or murmur. Bedside telemetry showing normal sinus rhythm heart rate [address] elevation. Sternum is stable. Atrial and ventricular epicardial pacemaker wires present and grounded. No edema present. Heart hugger in place. Knee- high HALEY hose and sequential compression devices in place to his bilateral lower extremities. - Gastrointestinal Gastrointestinal Comment(s): Abdomen is soft, nontender and nondistended. Hypoactive bowel sounds all 4 abdominal quadrants. OG tube present evacuating thin clear drainage, 50 mL output in the last 8 hours. - Genitourinary Genitourinary Comment(s): Ly catheter for accurate I&O. Clear yellow urine. 340 mL output in the last 8 hours. - Integumentary Integumentary Comment(s): Midline sternal incision clean dry and well approximated. Dermabond dressing clean dry and intact. Bilateral lower extremity EVH sites clean dry and well approximated. Left leg MARITZA drain in place evacuating thin serosanguineous drainage 30 mL output in the last 8 hours. Right leg MARTIZA drain in place evacuating thin serosanguineous drainage, 0 output in the last 8 hours. - Musculoskeletal Musculoskeletal: Present: generalized weakness - Psychiatric Psychiatric Comment(s): Remains sedated on Diprivan drip and with mechanical ventilator support. - Allied health notes Allied health notes reviewed: nursing - Labs CBC & Chem 7: 06/02/17 04:49 06/02/17 04:49 Labs: Abnormal Lab Results - Last 24 Hours (Table) 05/31/17 05/31/17 05/31/17 Range/Units 08:56 10:21 11:12 WBC (3.8-10.6) k/uL RBC (4.30-5.90) m/uL Hgb (13.0-17.5) gm/dL Hct (39.0-53.0) % Neutrophils # (1.3-7.7) k/uL ABG pH 7.31 L 7.33 L 7.32 L (7.35-7.45) ABG pCO2 50 H (35-45) mmHg ABG pO2 167 H 111 H 330 H (83-108) mmHg ABG HCO3 (21-25) mmol/L ABG Total CO2 26 H (19-24) mmol/L ABG O2 Saturation 99.3 H 97.9 H 99.9 H (94-97) % ABG Hematocrit 48 H (34.0-46.0) % ABG Potassium 5.8 H 5.7 H 4.7 H (3.4-4.5) mmol/L Glucose (74-99) mg/dL POC Glucose (mg/dL) (75-99) mg/dL Phosphorus (2.5-4.5) mg/dL Total Protein (6.3-8.2) g/dL Albumin (3.5-5.0) g/dL Arterial Blood Potassium 5.8 H 5.7 H 4.7 H (3.4-4.5) mmol/L 05/31/17 05/31/17 05/31/17 Range/Units 11:34 11:49 12:21 WBC (3.8-10.6) k/uL RBC (4.30-5.90) m/uL Hgb (13.0-17.5) gm/dL Hct (39.0-53.0) % Neutrophils # (1.3-7.7) k/uL ABG pH 7.26 L 7.29 L (7.35-7.45) ABG pCO2 53 H 49 H (35-45) mmHg ABG pO2 246 H 169 H (83-108) mmHg ABG HCO3 (21-25) mmol/L ABG Total CO2 25 H 25 H (19-24) mmol/L ABG O2 Saturation 99.8 H 99.5 H (94-97) % ABG Hematocrit (34.0-46.0) % ABG Potassium 4.8 H 5.0 H 5.0 H (3.4-4.5) mmol/L Glucose (74-99) mg/dL POC Glucose (mg/dL) (75-99) mg/dL Phosphorus (2.5-4.5) mg/dL Total Protein (6.3-8.2) g/dL Albumin (3.5-5.0) g/dL Arterial Blood Potassium 4.8 H 5.0 H 5.0 H (3.4-4.5) mmol/L 05/31/17 05/31/17 05/31/17 Range/Units 12:54 13:29 14:47 WBC (3.8-10.6) k/uL RBC (4.30-5.90) m/uL Hgb (13.0-17.5) gm/dL Hct (39.0-53.0) % Neutrophils # (1.3-7.7) k/uL ABG pH 7.34 L (7.35-7.45) ABG pCO2 (35-45) mmHg ABG pO2 273 H 237 H 109 H (83-108) mmHg ABG HCO3 (21-25) mmol/L ABG Total CO2 25 H 25 H (19-24) mmol/L ABG O2 Saturation 99.9 H 99.8 H 97.9 H (94-97) % ABG Hematocrit 48 H (34.0-46.0) % ABG Potassium 5.3 H 5.1 H (3.4-4.5) mmol/L Glucose (74-99) mg/dL POC Glucose (mg/dL) (75-99) mg/dL Phosphorus (2.5-4.5) mg/dL Total Protein (6.3-8.2) g/dL Albumin (3.5-5.0) g/dL Arterial Blood Potassium 5.3 H 5.1 H (3.4-4.5) mmol/L 06/01/17 06/01/17 06/01/17 Range/Units 08:15 09:18 10:03 WBC (3.8-10.6) k/uL RBC (4.30-5.90) m/uL Hgb (13.0-17.5) gm/dL Hct (39.0-53.0) % Neutrophils # (1.3-7.7) k/uL ABG pH (7.35-7.45) ABG pCO2 (35-45) mmHg ABG pO2 (83-108) mmHg ABG HCO3 (21-25) mmol/L ABG Total CO2 (19-24) mmol/L ABG O2 Saturation (94-97) % ABG Hematocrit (34.0-46.0) % ABG Potassium (3.4-4.5) mmol/L Glucose (74-99) mg/dL POC Glucose (mg/dL) 183 H 179 H 200 H (75-99) mg/dL Phosphorus (2.5-4.5) mg/dL Total Protein (6.3-8.2) g/dL Albumin (3.5-5.0) g/dL Arterial Blood Potassium (3.4-4.5) mmol/L 06/01/17 06/01/17 06/01/17 Range/Units 11:12 11:59 13:04 WBC (3.8-10.6) k/uL RBC (4.30-5.90) m/uL Hgb (13.0-17.5) gm/dL Hct (39.0-53.0) % Neutrophils # (1.3-7.7) k/uL ABG pH (7.35-7.45) ABG pCO2 (35-45) mmHg ABG pO2 (83-108) mmHg ABG HCO3 (21-25) mmol/L ABG Total CO2 (19-24) mmol/L ABG O2 Saturation (94-97) % ABG Hematocrit (34.0-46.0) % ABG Potassium (3.4-4.5) mmol/L Glucose (74-99) mg/dL POC Glucose (mg/dL) 172 H 155 H 154 H (75-99) mg/dL Phosphorus (2.5-4.5) mg/dL Total Protein (6.3-8.2) g/dL Albumin (3.5-5.0) g/dL Arterial Blood Potassium (3.4-4.5) mmol/L 06/01/17 06/01/17 06/01/17 Range/Units 14:02 15:05 16:01 WBC (3.8-10.6) k/uL RBC (4.30-5.90) m/uL Hgb (13.0-17.5) gm/dL Hct (39.0-53.0) % Neutrophils # (1.3-7.7) k/uL ABG pH (7.35-7.45) ABG pCO2 (35-45) mmHg ABG pO2 (83-108) mmHg ABG HCO3 (21-25) mmol/L ABG Total CO2 (19-24) mmol/L ABG O2 Saturation (94-97) % ABG Hematocrit (34.0-46.0) % ABG Potassium (3.4-4.5) mmol/L Glucose (74-99) mg/dL POC Glucose (mg/dL) 161 H 135 H 125 H (75-99) mg/dL Phosphorus (2.5-4.5) mg/dL Total Protein (6.3-8.2) g/dL Albumin (3.5-5.0) g/dL Arterial Blood Potassium (3.4-4.5) mmol/L 06/01/17 06/01/17 06/01/17 Range/Units 16:01 17:13 18:08 WBC (3.8-10.6) k/uL RBC (4.30-5.90) m/uL Hgb (13.0-17.5) gm/dL Hct (39.0-53.0) % Neutrophils # (1.3-7.7) k/uL ABG pH (7.35-7.45) ABG pCO2 (35-45) mmHg ABG pO2 77 L (83-108) mmHg ABG HCO3 26 H (21-25) mmol/L ABG Total CO2 27 H (19-24) mmol/L ABG O2 Saturation (94-97) % ABG Hematocrit (34.0-46.0) % ABG Potassium (3.4-4.5) mmol/L Glucose (74-99) mg/dL POC Glucose (mg/dL) 107 H 144 H (75-99) mg/dL Phosphorus (2.5-4.5) mg/dL Total Protein (6.3-8.2) g/dL Albumin (3.5-5.0) g/dL Arterial Blood Potassium (3.4-4.5) mmol/L 06/01/17 06/01/17 06/01/17 Range/Units 18:55 20:05 21:12 WBC (3.8-10.6) k/uL RBC (4.30-5.90) m/uL Hgb (13.0-17.5) gm/dL Hct (39.0-53.0) % Neutrophils # (1.3-7.7) k/uL ABG pH (7.35-7.45) ABG pCO2 (35-45) mmHg ABG pO2 (83-108) mmHg ABG HCO3 (21-25) mmol/L ABG Total CO2 (19-24) mmol/L ABG O2 Saturation (94-97) % ABG Hematocrit (34.0-46.0) % ABG Potassium (3.4-4.5) mmol/L Glucose (74-99) mg/dL POC Glucose (mg/dL) 138 H 121 H 113 H (75-99) mg/dL Phosphorus (2.5-4.5) mg/dL Total Protein (6.3-8.2) g/dL Albumin (3.5-5.0) g/dL Arterial Blood Potassium (3.4-4.5) mmol/L 06/01/17 06/01/17 06/02/17 Range/Units 22:06 23:02 00:04 WBC (3.8-10.6) k/uL RBC (4.30-5.90) m/uL Hgb (13.0-17.5) gm/dL Hct (39.0-53.0) % Neutrophils # (1.3-7.7) k/uL ABG pH (7.35-7.45) ABG pCO2 (35-45) mmHg ABG pO2 (83-108) mmHg ABG HCO3 (21-25) mmol/L ABG Total CO2 (19-24) mmol/L ABG O2 Saturation (94-97) % ABG Hematocrit (34.0-46.0) % ABG Potassium (3.4-4.5) mmol/L Glucose (74-99) mg/dL POC Glucose (mg/dL) 133 H 120 H 113 H (75-99) mg/dL Phosphorus (2.5-4.5) mg/dL Total Protein (6.3-8.2) g/dL Albumin (3.5-5.0) g/dL Arterial Blood Potassium (3.4-4.5) mmol/L 06/02/17 06/02/17 06/02/17 Range/Units 01:11 02:19 03:06 WBC (3.8-10.6) k/uL RBC (4.30-5.90) m/uL Hgb (13.0-17.5) gm/dL Hct (39.0-53.0) % Neutrophils # (1.3-7.7) k/uL ABG pH (7.35-7.45) ABG pCO2 (35-45) mmHg ABG pO2 (83-108) mmHg ABG HCO3 (21-25) mmol/L ABG Total CO2 (19-24) mmol/L ABG O2 Saturation (94-97) % ABG Hematocrit (34.0-46.0) % ABG Potassium (3.4-4.5) mmol/L Glucose (74-99) mg/dL POC Glucose (mg/dL) 136 H 151 H 143 H (75-99) mg/dL Phosphorus (2.5-4.5) mg/dL Total Protein (6.3-8.2) g/dL Albumin (3.5-5.0) g/dL Arterial Blood Potassium (3.4-4.5) mmol/L 06/02/17 06/02/17 06/02/17 Range/Units 04:18 04:49 04:49 WBC 12.1 H (3.8-10.6) k/uL RBC 3.81 L (4.30-5.90) m/uL Hgb 11.4 L (13.0-17.5) gm/dL Hct 36.5 L (39.0-53.0) % Neutrophils # 9.9 H (1.3-7.7) k/uL ABG pH (7.35-7.45) ABG pCO2 (35-45) mmHg ABG pO2 (83-108) mmHg ABG HCO3 (21-25) mmol/L ABG Total CO2 (19-24) mmol/L ABG O2 Saturation (94-97) % ABG Hematocrit (34.0-46.0) % ABG Potassium (3.4-4.5) mmol/L Glucose 120 H (74-99) mg/dL POC Glucose (mg/dL) 129 H (75-99) mg/dL Phosphorus 2.2 L (2.5-4.5) mg/dL Total Protein 5.2 L (6.3-8.2) g/dL Albumin 2.5 L (3.5-5.0) g/dL Arterial Blood Potassium (3.4-4.5) mmol/L 06/02/17 06/02/17 06/02/17 Range/Units 05:02 05:25 06:18 WBC (3.8-10.6) k/uL RBC (4.30-5.90) m/uL Hgb (13.0-17.5) gm/dL Hct (39.0-53.0) % Neutrophils # (1.3-7.7) k/uL ABG pH 7.48 H (7.35-7.45) ABG pCO2 (35-45) mmHg ABG pO2 68 L (83-108) mmHg ABG HCO3 26 H (21-25) mmol/L ABG Total CO2 27 H (19-24) mmol/L ABG O2 Saturation (94-97) % ABG Hematocrit (34.0-46.0) % ABG Potassium (3.4-4.5) mmol/L Glucose (74-99) mg/dL POC Glucose (mg/dL) 139 H 114 H (75-99) mg/dL Phosphorus (2.5-4.5) mg/dL Total Protein (6.3-8.2) g/dL Albumin (3.5-5.0) g/dL Arterial Blood Potassium (3.4-4.5) mmol/L 06/02/17 06/02/17 Range/Units 06:55 08:05 WBC (3.8-10.6) k/uL RBC (4.30-5.90) m/uL Hgb (13.0-17.5) gm/dL Hct (39.0-53.0) % Neutrophils # (1.3-7.7) k/uL ABG pH (7.35-7.45) ABG pCO2 (35-45) mmHg ABG pO2 (83-108) mmHg ABG HCO3 (21-25) mmol/L ABG Total CO2 (19-24) mmol/L ABG O2 Saturation (94-97) % ABG Hematocrit (34.0-46.0) % ABG Potassium (3.4-4.5) mmol/L Glucose (74-99) mg/dL POC Glucose (mg/dL) 109 H 125 H (75-99) mg/dL Phosphorus (2.5-4.5) mg/dL Total Protein (6.3-8.2) g/dL Albumin (3.5-5.0) g/dL Arterial Blood Potassium (3.4-4.5) mmol/L - Imaging and Cardiology Chest x-ray: report reviewed, image reviewed Assessment and Plan (1) Uncontrolled type 2 diabetes mellitus Status: Acute (2) COPD (chronic obstructive pulmonary disease) Status: Acute (3) History of heart artery stent Status: Acute (4) Hyperlipidemia Status: Acute (5) Previous myocardial infarction older than 8 weeks Status: Acute (6) Coronary artery disease Status: Acute (7) Family history of coronary artery disease Status: Acute (8) Hypertension Status: Acute (9) Morbid obesity Status: Acute (10) Tobacco dependence in remission Status: Acute Plan: 1. Continue Plavix, statin, heparin subcu, beta claudette. Will increase his metoprolol to 25 mg by mouth twice a day. No aspirin secondary to ALLERGY. 2. Wean mechanical ventilation as tolerated. Ventilator management per pulmonary services. Dr. Christiansen has decreased the patient's PEEP to 5. 3. Increase activity when able. Physical and occupational therapy has been consulted. 4. GI/DVT prophylaxis. 5. Insulin management per primary care service. 6. Will monitor daily labs, chest x-rays. 7. Lasix 20 mg IV 1 today. 8. We will discontinue his MARITZA drains. 9. More recommendations as patient progresses. Time with Patient: Greater than 30
[2017-06-02] MEDS ORDERED: FUROSEMIDE 10 MG/ML 2 ML VIAL IV ONE (09:00)
[2017-06-02 09:04] LABS: Glucose,Whole Blood 119 mg/dL (75-99)
--- NOTE | 2017-06-02 09:05 | PN ---
PROGRESS NOTE Mr. Heredia is a 67-year-old male with a history of coronary artery disease, status post coronary artery bypass grafting. He remains intubated. He has required a higher dose of PEEP initially. His PEEP has been decreased. He continued to be in sinus mechanism. Hemodynamically stable. He is on no pressor. His urine output is stable. He has no evidence of ventricular tachyarrhythmia. He remains sedated. He continues to be at this time on Lipitor 40 mg daily, Plavix 75 mg daily, and metoprolol 25 mg twice a day, although he remains intubated at this point. PHYSICAL EXAMINATION: Blood pressure 132/60 with a heart rate in the 100s. LUNGS: Clear anteriorly. HEART: Regular rate and rhythm. S1, S2. No S3. No rub appreciated. ABDOMEN: Soft. No organomegaly. EXTREMITIES: No significant edema. Chest x-ray revealed no infiltrate. LAB DATA: Lab data revealed BUN and creatinine 14 and 0.78. Potassium 4.0. Hemoglobin of 11.4. EKG is consistent with pericarditis. IMPRESSION: 1. Status post coronary artery bypass grafting. 2. Respiratory failure, requiring initially a high dose of PEEP. 3. History of hyperlipidemia. 4. History of chronic obstructive pulmonary disease. 5. History of hypertension. RECOMMENDATION: I am hopeful that we will be able to wean him off the ventilator and extubate him today. We will continue to follow his blood pressure and depending on the trend, adjustment will be made. MMODL / IJN: [id number] /
[2017-06-02 09:11] LABS: ABG Base Excess 0.5 mmol/L; ABG HCO3 24 mmol/L (21-25); ABG PCO2 35 mmHg (35-45); ABG PH 7.45 (7.35-7.45); ABG PO2 88 mmHg (83-108); ABG TCO2 25 mmol/L (19-24)
--- NOTE | 2017-06-02 09:44 | CDI ---
In responding to this query, please exercise your independent professional judgment. The [facility] Coding Staff and Clinical Documentation Specialists appreciate your assistance in clarifying documentation, maintaining compliance with coding guidelines, accurately documenting patients condition and capturing severity of illness. The fact that a question is asked does not imply that any particular answer is desired or expected. Communication forms are a method of clarifying documentation and are not made part of the Legal Health Record. Thank you in advance for your clarification. Last Revision, Sep 2016 Jas García [address] [place] [address] Documentation Clarification Form Date: 06/02/2017 9:33:00 AM From: Tegan Naranjo RN, CCDS Admit Date: 05/31/2017 5:36:00 AM Patient Name: Blas Heredia Visit Number: [id number] Dr. Emmanuel Montano/Ewelina Hernandez CNP Post operative Respiratory Failure is documented in the Medical H&P. Patients Admitting Diagnosis: CAD, Angina Post-Operative Diagnosis: CAD, Angina Procedure performed: CABG x4, Endovein Bilateral SVG harvest History/Risk Factors: CAD, Stent, DM2, Obesity, TVD Clinical Indicators: 06/01 H&P: Acute vent dependent respiratory failure post CABG 4. Treatment: Pt is maintained on Ventilator >48hrs in the CABG post-operative period Consults: Pulmonary, Cardiovascular Surgery In order to accurately reflect this patients severity of illness, please clarify if the post-operative diagnosis is and any Co-morbid conditions associated with: An expected post-procedural or post-surgical condition Integral to the procedure Inherent to the procedure An unexpected post-procedural or post-surgical condition, related to surgical care Other, please specify Unable to determine Please document in your progress notes and discharge summary in order to capture severity of illness and risk of mortality. Include clinical findings that support your diagnosis. FYI: Press F11 to launch patient chart An expected post-procedural or post-surgical condition MTDD
[2017-06-02 10:08] LABS: Glucose,Whole Blood 129 mg/dL (75-99)
[2017-06-02 11:11] LABS: ABG HCO3 25 mmol/L (21-25); ABG PCO2 35 mmHg (35-45); ABG PH 7.48 (7.35-7.45); ABG PO2 86 mmHg (83-108); ABG TCO2 27 mmol/L (19-24)
[2017-06-02 11:15] LABS: Glucose,Whole Blood 123 mg/dL (75-99)
[2017-06-02 12:21] LABS: Glucose,Whole Blood 114 mg/dL (75-99)
[2017-06-02 13:08] LABS: Glucose,Whole Blood 131 mg/dL (75-99)
[2017-06-02 13:14] LABS: Phosphorus 2.4 mg/dL (2.5-4.5); Potassium 3.8 mmol/L (3.5-5.1)
--- NOTE | 2017-06-02 13:36 | P.PN ---
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 Patient was out for a bike ride 3 blocks with his and developed severe chest pain with previous episodes of chest pain. He contacted his mixing technician, Dr. Sarmienot. He had a cardiac catheterization that showed diffuse disease in the LAD with 70% stenosis in the midportion 70% stenosis in the large diagonal branch proximal circumflex occlusion and a heavily calcified right coronary artery with a 80-90% stenosis in the distal RCA. The patient was referred to CT surgery and the patient underwent four-vessel bypass surgery completed yesterday. He remains intubated and on mechanical ventilation. His was at the bedside and the patient is being checked for possible extubation over the next few hours. 06/02: Patient remains in the intensive care unit and was successfully extubated at 11 AM today. Hemoglobin is stable at 11.4. He states his chest is sore. Breathing is stable at this time. Chest tubes, Ly catheter, MARITZA drains, pacemaker wires in place. Patient has started using incentive spirometry. Objective - Vital Signs Vital signs: Vital Signs Temp 99.7 F H 06/02/17 04:00 Pulse 98 06/02/17 07:35 Resp 22 06/02/17 07:00 BP 131/73 06/02/17 03:00 Pulse Ox 96 06/02/17 07:00 Intake & Output 06/01/17 06/02/17 06/02/17 18:59 06:59 18:59 Intake Total 0179.118 6461.295 79 Output Total 2446 1780 75 Balance -1383.331 -596.705 4 Weight 132.7 kg Intake: IV 688 613 79 0.9NaCl 9 45 ACETAMINOPHEN IV (For NPO 100 ) 1,000 mg In Empty Bag 1 bag @ 400 mls/hr IVPB Q6HR [facility] Rx#:[id number] Lactated Ringers 1,000 ml 400 350 20 @ 20 mls/hr IV .Q24H [facility] Rx#:[id number] Potassium Phosphate 10 50 mmol In Sodium Chloride 0 .9% 100 ml @ 50 mls/hr IV ONCE ONE Rx#:[id number] cardiac output 80 110 pressure bag 99 108 9 Intake, IV Titration 374.669 470.295 Amount Insulin Regular 100 unit 129.816 101.976 In Sodium Chloride 0.9% 100 ml @ Per Protocol IV .Q0M [facility] Rx#:[id number] Propofol 1,000 mg In 100 244.853 368.319 ml @ Titrate IV .Q0M [facility] Rx#:[id number] Oral 100 Output: Chest Tube Drainage 106 120 20 Chest Tube Bilateral 101 120 0 Mediastinal Chest Tube Left Lateral 5 0 20 Chest Drainage 45 30 0 Left Calf 30 30 0 Right Calf 15 0 0 Urine 2295 1630 55 Uretheral (Ly) 440 Other: Voiding Method Indwelling Catheter Indwelling Catheter ABP, PAP, CO, CI - Last Documented Arterial Blood Pressure 102/61 Pulmonary Artery Pressure 37/20 Cardiac Output 5.2 Cardiac Index 2.1 - Exam General appearance: average body habitus, mild distress - EENT Eyes: anicteric sclerae, normal appearance ENT: NA/AT, other (ET tube placed on oral gastric tube in place.), no thrush Ears: bilateral: normal - Neck Neck: no lymphadenopathy Carotids: bilateral: upstroke delayed Thyroid: bilateral: normal size - Respiratory Respiratory: bilateral: diminished, rhonchi, negative: dullness, rales, wheezing , prolonged expiration - Cardiovascular Rhythm: regular Heart sounds: normal: S1, S2 Abnormal Heart Sounds: systolic murmur, rub, S3 Gallop, no click - Gastrointestinal General gastrointestinal: normal bowel sounds, soft, no splenomegaly, no tenderness, no umbilical hernia, no ventral hernia - Integumentary Integumentary: normal, normal turgor - Psychiatric Psychiatric: no A&O x's 3, no appropriate affect, no intact judgment & insight - Labs CBC & Chem 7: 06/02/17 04:49 06/02/17 12:20 Labs: Abnormal Lab Results - Last 24 Hours (Table) 05/31/17 05/31/17 05/31/17 Range/Units 08:56 10:21 11:12 WBC (3.8-10.6) k/uL RBC (4.30-5.90) m/uL Hgb (13.0-17.5) gm/dL Hct (39.0-53.0) % Neutrophils # (1.3-7.7) k/uL ABG pH 7.31 L 7.33 L 7.32 L (7.35-7.45) ABG pCO2 50 H (35-45) mmHg ABG pO2 167 H 111 H 330 H (83-108) mmHg ABG HCO3 (21-25) mmol/L ABG Total CO2 26 H (19-24) mmol/L ABG O2 Saturation 99.3 H 97.9 H 99.9 H (94-97) % ABG Hematocrit 48 H (34.0-46.0) % ABG Potassium 5.8 H 5.7 H 4.7 H (3.4-4.5) mmol/L Glucose (74-99) mg/dL POC Glucose (mg/dL) (75-99) mg/dL Phosphorus (2.5-4.5) mg/dL Total Protein (6.3-8.2) g/dL Albumin (3.5-5.0) g/dL Arterial Blood Potassium 5.8 H 5.7 H 4.7 H (3.4-4.5) mmol/L 05/31/17 05/31/17 05/31/17 Range/Units 11:34 11:49 12:21 WBC (3.8-10.6) k/uL RBC (4.30-5.90) m/uL Hgb (13.0-17.5) gm/dL Hct (39.0-53.0) % Neutrophils # (1.3-7.7) k/uL ABG pH 7.26 L 7.29 L (7.35-7.45) ABG pCO2 53 H 49 H (35-45) mmHg ABG pO2 246 H 169 H (83-108) mmHg ABG HCO3 (21-25) mmol/L ABG Total CO2 25 H 25 H (19-24) mmol/L ABG O2 Saturation 99.8 H 99.5 H (94-97) % ABG Hematocrit (34.0-46.0) % ABG Potassium 4.8 H 5.0 H 5.0 H (3.4-4.5) mmol/L Glucose (74-99) mg/dL POC Glucose (mg/dL) (75-99) mg/dL Phosphorus (2.5-4.5) mg/dL Total Protein (6.3-8.2) g/dL Albumin (3.5-5.0) g/dL Arterial Blood Potassium 4.8 H 5.0 H 5.0 H (3.4-4.5) mmol/L 05/31/17 05/31/17 05/31/17 Range/Units 12:54 13:29 14:47 WBC (3.8-10.6) k/uL RBC (4.30-5.90) m/uL Hgb (13.0-17.5) gm/dL Hct (39.0-53.0) % Neutrophils # (1.3-7.7) k/uL ABG pH 7.34 L (7.35-7.45) ABG pCO2 (35-45) mmHg ABG pO2 273 H 237 H 109 H (83-108) mmHg ABG HCO3 (21-25) mmol/L ABG Total CO2 25 H 25 H (19-24) mmol/L ABG O2 Saturation 99.9 H 99.8 H 97.9 H (94-97) % ABG Hematocrit 48 H (34.0-46.0) % ABG Potassium 5.3 H 5.1 H (3.4-4.5) mmol/L Glucose (74-99) mg/dL POC Glucose (mg/dL) (75-99) mg/dL Phosphorus (2.5-4.5) mg/dL Total Protein (6.3-8.2) g/dL Albumin (3.5-5.0) g/dL Arterial Blood Potassium 5.3 H 5.1 H (3.4-4.5) mmol/L 06/01/17 06/01/17 06/01/17 Range/Units 08:15 09:18 10:03 WBC (3.8-10.6) k/uL RBC (4.30-5.90) m/uL Hgb (13.0-17.5) gm/dL Hct (39.0-53.0) % Neutrophils # (1.3-7.7) k/uL ABG pH (7.35-7.45) ABG pCO2 (35-45) mmHg ABG pO2 (83-108) mmHg ABG HCO3 (21-25) mmol/L ABG Total CO2 (19-24) mmol/L ABG O2 Saturation (94-97) % ABG Hematocrit (34.0-46.0) % ABG Potassium (3.4-4.5) mmol/L Glucose (74-99) mg/dL POC Glucose (mg/dL) 183 H 179 H 200 H (75-99) mg/dL Phosphorus (2.5-4.5) mg/dL Total Protein (6.3-8.2) g/dL Albumin (3.5-5.0) g/dL Arterial Blood Potassium (3.4-4.5) mmol/L 06/01/17 06/01/17 06/01/17 Range/Units 11:12 11:59 13:04 WBC (3.8-10.6) k/uL RBC (4.30-5.90) m/uL Hgb (13.0-17.5) gm/dL Hct (39.0-53.0) % Neutrophils # (1.3-7.7) k/uL ABG pH (7.35-7.45) ABG pCO2 (35-45) mmHg ABG pO2 (83-108) mmHg ABG HCO3 (21-25) mmol/L ABG Total CO2 (19-24) mmol/L ABG O2 Saturation (94-97) % ABG Hematocrit (34.0-46.0) % ABG Potassium (3.4-4.5) mmol/L Glucose (74-99) mg/dL POC Glucose (mg/dL) 172 H 155 H 154 H (75-99) mg/dL Phosphorus (2.5-4.5) mg/dL Total Protein (6.3-8.2) g/dL Albumin (3.5-5.0) g/dL Arterial Blood Potassium (3.4-4.5) mmol/L 06/01/17 06/01/17 06/01/17 Range/Units 14:02 15:05 16:01 WBC (3.8-10.6) k/uL RBC (4.30-5.90) m/uL Hgb (13.0-17.5) gm/dL Hct (39.0-53.0) % Neutrophils # (1.3-7.7) k/uL ABG pH (7.35-7.45) ABG pCO2 (35-45) mmHg ABG pO2 (83-108) mmHg ABG HCO3 (21-25) mmol/L ABG Total CO2 (19-24) mmol/L ABG O2 Saturation (94-97) % ABG Hematocrit (34.0-46.0) % ABG Potassium (3.4-4.5) mmol/L Glucose (74-99) mg/dL POC Glucose (mg/dL) 161 H 135 H 125 H (75-99) mg/dL Phosphorus (2.5-4.5) mg/dL Total Protein (6.3-8.2) g/dL Albumin (3.5-5.0) g/dL Arterial Blood Potassium (3.4-4.5) mmol/L 06/01/17 06/01/17 06/01/17 Range/Units 16:01 17:13 18:08 WBC (3.8-10.6) k/uL RBC (4.30-5.90) m/uL Hgb (13.0-17.5) gm/dL Hct (39.0-53.0) % Neutrophils # (1.3-7.7) k/uL ABG pH (7.35-7.45) ABG pCO2 (35-45) mmHg ABG pO2 77 L (83-108) mmHg ABG HCO3 26 H (21-25) mmol/L ABG Total CO2 27 H (19-24) mmol/L ABG O2 Saturation (94-97) % ABG Hematocrit (34.0-46.0) % ABG Potassium (3.4-4.5) mmol/L Glucose (74-99) mg/dL POC Glucose (mg/dL) 107 H 144 H (75-99) mg/dL Phosphorus (2.5-4.5) mg/dL Total Protein (6.3-8.2) g/dL Albumin (3.5-5.0) g/dL Arterial Blood Potassium (3.4-4.5) mmol/L 06/01/17 06/01/17 06/01/17 Range/Units 18:55 20:05 21:12 WBC (3.8-10.6) k/uL RBC (4.30-5.90) m/uL Hgb (13.0-17.5) gm/dL Hct (39.0-53.0) % Neutrophils # (1.3-7.7) k/uL ABG pH (7.35-7.45) ABG pCO2 (35-45) mmHg ABG pO2 (83-108) mmHg ABG HCO3 (21-25) mmol/L ABG Total CO2 (19-24) mmol/L ABG O2 Saturation (94-97) % ABG Hematocrit (34.0-46.0) % ABG Potassium (3.4-4.5) mmol/L Glucose (74-99) mg/dL POC Glucose (mg/dL) 138 H 121 H 113 H (75-99) mg/dL Phosphorus (2.5-4.5) mg/dL Total Protein (6.3-8.2) g/dL Albumin (3.5-5.0) g/dL Arterial Blood Potassium (3.4-4.5) mmol/L 06/01/17 06/01/17 06/02/17 Range/Units 22:06 23:02 00:04 WBC (3.8-10.6) k/uL RBC (4.30-5.90) m/uL Hgb (13.0-17.5) gm/dL Hct (39.0-53.0) % Neutrophils # (1.3-7.7) k/uL ABG pH (7.35-7.45) ABG pCO2 (35-45) mmHg ABG pO2 (83-108) mmHg ABG HCO3 (21-25) mmol/L ABG Total CO2 (19-24) mmol/L ABG O2 Saturation (94-97) % ABG Hematocrit (34.0-46.0) % ABG Potassium (3.4-4.5) mmol/L Glucose (74-99) mg/dL POC Glucose (mg/dL) 133 H 120 H 113 H (75-99) mg/dL Phosphorus (2.5-4.5) mg/dL Total Protein (6.3-8.2) g/dL Albumin (3.5-5.0) g/dL Arterial Blood Potassium (3.4-4.5) mmol/L 06/02/17 06/02/17 06/02/17 Range/Units 01:11 02:19 03:06 WBC (3.8-10.6) k/uL RBC (4.30-5.90) m/uL Hgb (13.0-17.5) gm/dL Hct (39.0-53.0) % Neutrophils # (1.3-7.7) k/uL ABG pH (7.35-7.45) ABG pCO2 (35-45) mmHg ABG pO2 (83-108) mmHg ABG HCO3 (21-25) mmol/L ABG Total CO2 (19-24) mmol/L ABG O2 Saturation (94-97) % ABG Hematocrit (34.0-46.0) % ABG Potassium (3.4-4.5) mmol/L Glucose (74-99) mg/dL POC Glucose (mg/dL) 136 H 151 H 143 H (75-99) mg/dL Phosphorus (2.5-4.5) mg/dL Total Protein (6.3-8.2) g/dL Albumin (3.5-5.0) g/dL Arterial Blood Potassium (3.4-4.5) mmol/L 06/02/17 06/02/17 06/02/17 Range/Units 04:18 04:49 04:49 WBC 12.1 H (3.8-10.6) k/uL RBC 3.81 L (4.30-5.90) m/uL Hgb 11.4 L (13.0-17.5) gm/dL Hct 36.5 L (39.0-53.0) % Neutrophils # 9.9 H (1.3-7.7) k/uL ABG pH (7.35-7.45) ABG pCO2 (35-45) mmHg ABG pO2 (83-108) mmHg ABG HCO3 (21-25) mmol/L ABG Total CO2 (19-24) mmol/L ABG O2 Saturation (94-97) % ABG Hematocrit (34.0-46.0) % ABG Potassium (3.4-4.5) mmol/L Glucose 120 H (74-99) mg/dL POC Glucose (mg/dL) 129 H (75-99) mg/dL Phosphorus 2.2 L (2.5-4.5) mg/dL Total Protein 5.2 L (6.3-8.2) g/dL Albumin 2.5 L (3.5-5.0) g/dL Arterial Blood Potassium (3.4-4.5) mmol/L 06/02/17 06/02/17 06/02/17 Range/Units 05:02 05:25 06:18 WBC (3.8-10.6) k/uL RBC (4.30-5.90) m/uL Hgb (13.0-17.5) gm/dL Hct (39.0-53.0) % Neutrophils # (1.3-7.7) k/uL ABG pH 7.48 H (7.35-7.45) ABG pCO2 (35-45) mmHg ABG pO2 68 L (83-108) mmHg ABG HCO3 26 H (21-25) mmol/L ABG Total CO2 27 H (19-24) mmol/L ABG O2 Saturation (94-97) % ABG Hematocrit (34.0-46.0) % ABG Potassium (3.4-4.5) mmol/L Glucose (74-99) mg/dL POC Glucose (mg/dL) 139 H 114 H (75-99) mg/dL Phosphorus (2.5-4.5) mg/dL Total Protein (6.3-8.2) g/dL Albumin (3.5-5.0) g/dL Arterial Blood Potassium (3.4-4.5) mmol/L 06/02/17 Range/Units 06:55 WBC (3.8-10.6) k/uL RBC (4.30-5.90) m/uL Hgb (13.0-17.5) gm/dL Hct (39.0-53.0) % Neutrophils # (1.3-7.7) k/uL ABG pH (7.35-7.45) ABG pCO2 (35-45) mmHg ABG pO2 (83-108) mmHg ABG HCO3 (21-25) mmol/L ABG Total CO2 (19-24) mmol/L ABG O2 Saturation (94-97) % ABG Hematocrit (34.0-46.0) % ABG Potassium (3.4-4.5) mmol/L Glucose (74-99) mg/dL POC Glucose (mg/dL) 109 H (75-99) mg/dL Phosphorus (2.5-4.5) mg/dL Total Protein (6.3-8.2) g/dL Albumin (3.5-5.0) g/dL Arterial Blood Potassium (3.4-4.5) mmol/L Assessment and Plan Plan: 1. Acute hypoxic vent dependent respiratory failure post CABG 4. Continue aggressive pulmonary toileting, continue to wean down his FiO2 to 40%, his currently on 10 of PEEP, patient is being checked for weaning parameter and hopefully he will be extubated in the next few hours. 2. Coronary artery disease status post CABG with 4 vessel bypass involving DAY to LAD and saphenous vein graft to PDA, PLV and diagonal. Continue patient on Lipitor 40 mg per oral gastric tube once every day as well as Lopressor 12.5 mg per orogastric tube twice every day. 3. History of CAD with prior stent in 2012. Maintain the patient on Lipitor 40 mg per OGT once a day as well as metoprolol 12.5 mg per OGT twice every day. 3. Diabetes mellitus type 2. Currently on insulin drip. 4. Morbid obesity. Patient would need to go into the a full weight loss program without the need for any surgical intervention. 5. History of COPD without exacerbation. Continue aggressive pulmonary toileting with DuoNeb. 6. Hypertension hypertensive cardio vascular disease. Continue patient on metoprolol 12.5 mg per OGT twice every day. 7. Hyperlipidemia. Continue lipitor increased to 40mg daily. Discharge plan: To be determined Impression and plan of care have been directed as dictated by the signing physician. Ewelina Hernandez nurse practitioner acting as scribe for signing physician.
[2017-06-02] MEDS ORDERED: Potassium Replacement Protocol 1 EACH MISC MISCELLANE PRN (13:43)
[2017-06-02] MEDS ORDERED: Phosphorus Replacement Protoco 1 EACH MISC MISCELLANE PRN (13:44)
[2017-06-02] MEDS ORDERED: SODIUM PHOSPHATE 10 MMOL in SODIUM CHLORIDE 0.9% 100 ML IVPB ONE (13:44)
[2017-06-02] MEDS ORDERED: NACL IV ONE (14:00)
[2017-06-02] MEDS ORDERED: POTASSIUM CHLORIDE ER 20 MEQ TAB.ER PO SCH (14:00)
[2017-06-02] MEDS ORDERED: SODIUM PHOSPH IV ONE (14:00)
[2017-06-02] MEDS ORDERED: SODIUM PHOSPH/0.9 NACL 10 MMOL in SALINE 100 100ML.BAG IVPB ONE (14:00)
[2017-06-02 14:14] LABS: Glucose,Whole Blood 130 mg/dL (75-99)
[2017-06-02] MEDS: LACTATED RINGERS 1,000 ML IV SCH (15:34)
[2017-06-02] MEDS: FUROSEMIDE 10 MG/ML 2 ML VIAL IV SCH ×2 (15:34→20:15)
[2017-06-02] MEDS: CLEVIDIPINE BUTYRATE 25 MG in EMPTY BAG 1 BAG IV SCH (15:34)
[2017-06-02 15:53] LABS: Glucose,Whole Blood 116 mg/dL (75-99)
[2017-06-02 17:19] LABS: Glucose,Whole Blood 109 mg/dL (75-99)
[2017-06-02 18:10] LABS: Glucose,Whole Blood 124 mg/dL (75-99)
[2017-06-02 19:09] LABS: Glucose,Whole Blood 197 mg/dL (75-99)
[2017-06-02 20:07] LABS: Glucose,Whole Blood 176 mg/dL (75-99)
[2017-06-02] MEDS: SENNOSIDES-DOCUSATE SODIUM 1 EACH TAB PO SCH (20:21)
[2017-06-02 21:08] LABS: Glucose,Whole Blood 185 mg/dL (75-99)
[2017-06-02 22:00] LABS: Glucose,Whole Blood 179 mg/dL (75-99)
[2017-06-02 23:14] LABS: Glucose,Whole Blood 152 mg/dL (75-99)
[2017-06-03 00:09] LABS: Glucose,Whole Blood 121 mg/dL (75-99)
[2017-06-03 01:07] LABS: Glucose,Whole Blood 115 mg/dL (75-99)
[2017-06-03] MEDS: HYDROcodone/APAP 5-325MG 1 EACH TAB PO PRN ×4 (02:00→20:28)
[2017-06-03 02:11] LABS: Glucose,Whole Blood 114 mg/dL (75-99)
[2017-06-03 03:21] LABS: Glucose,Whole Blood 123 mg/dL (75-99)
[2017-06-03 04:25] LABS: Glucose,Whole Blood 140 mg/dL (75-99)
[2017-06-03] MEDS: INSULIN REGULAR 100 UNIT in SODIUM CHLORIDE 0.9% 100 ML IV SCH (04:26)
[2017-06-03 05:04] LABS: Glucose,Whole Blood 127 mg/dL (75-99)
[2017-06-03 05:44] LABS: Basophils % (A) 0 %; CH 29.3; Eosinophils # (A) 0.2 k/uL (0-0.7); Eosinophils % (A) 1 %; HGB 11.1 gm/dL (13.0-17.5); Hypochromasia Slight; Luc # (Auto) 0.18; Luc % (Auto) 1; Lymphocytes # (A) 1.7 k/uL (1.0-4.8); Lymphocytes % (A) 11 %; MCH 30.2 pg (25.0-35.0); MCHC 31.8 g/dL (31.0-37.0); Mean Platelet Volume 7.6; Monocytes # (A) 0.5 k/uL (0-1.0); Monocytes % (A) 3 %; Neutrophils # (A) 12.6 k/uL (1.3-7.7); Neutrophils % (A) 83 %; RBC 3.68 m/uL (4.30-5.90); RDW 15.2 % (11.5-15.5); WBC 15.1 k/uL (3.8-10.6); WBC (Perox) 15.86
[2017-06-03 05:57] LABS: ALT 27 U/L (21-72); AST 21 U/L (17-59); Alkaline Phosphatase 50 U/L (38-126); Anion Gap 6 mmol/L; Blood Urea Nitrogen 16 mg/dL (9-20); Calcium 8.2 mg/dL (8.4-10.2); Carbon Dioxide 27 mmol/L (22-30); Chloride 102 mmol/L (98-107); Glucose 126 mg/dL (74-99); Non-African American GFR(MDRD) >60 (>60 ml/min/1.73 sqM); Sodium 135 mmol/L (137-145); Total Bilirubin 0.7 mg/dL (0.2-1.3); Total Protein 5.4 g/dL (6.3-8.2)
[2017-06-03 06:46] LABS: Phosphorus 2.8 mg/dL (2.5-4.5)
[2017-06-03 06:59] LABS: Glucose,Whole Blood 116 mg/dL (75-99)
--- NOTE | 2017-06-03 07:26 | XR ---
EXAMINATION TYPE: XR chest 1V portable DATE OF EXAM: 06/03/2017 HISTORY: Shortness of breath. COMPARISON: 06/02/2017 TECHNIQUE: Single view of the chest is submitted. FINDINGS: Endotracheal tube, NG tube, Atwood-Kevin catheter and mediastinal drains have been removed. Left-sided c hest tube remains in place without evidence of pneumothorax. There is left basilar opacity which may reflect atelectasis and/or infiltrate. The heart is stable. Hilar and mediastinal structures are within normal limits. Degenerative changes are seen of the dorsal spine. IMPRESSION: 1. Postoperative changes as noted.
[2017-06-03 08:00] LABS: Glucose,Whole Blood 160 mg/dL (75-99)
[2017-06-03] MEDS: FUROSEMIDE 10 MG/ML 2 ML VIAL IV SCH ×2 (08:03→20:20)
[2017-06-03] MEDS: ATORVASTATIN 40 MG TAB PO SCH (08:03)
[2017-06-03] MEDS: HEPARIN SODIUM,PORCINE 5,000 UNIT/ML 1 ML VIAL SQ SCH ×2 (08:03→16:10)
[2017-06-03] MEDS: CLOPIDOGREL 75 MG TAB PO SCH (08:03)
[2017-06-03] MEDS: PANTOPRAZOLE 40 MG/10 ML VIAL IVP SCH (08:04)
[2017-06-03] MEDS: METOPROLOL TARTRATE 50 MG TAB PO SCH ×2 (08:04→20:22)
[2017-06-03] MEDS: IPRATROPIUM-ALBUTEROL 3 ML NEB INHALATION PRN ×4 (08:24→19:43)
--- NOTE | 2017-06-03 09:09 | P.PN ---
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 He had a cardiac catheterization that showed diffuse disease in the LAD with 70% stenosis in the midportion 70% stenosis in the large diagonal branch proximal circumflex occlusion and a heavily calcified right coronary artery with a 80-90% stenosis in the distal RCA. The patient was referred to CT surgery and the patient underwent four- vessel bypass surgery today. Currently is postop. He still intubated on a mechanical ventilator. His sedated with Diprivan. He is an assist-control mode of ventilation with a rate of 12, tidal volume of 700, FiO2 of 100% and a PEEP of 5. The chest x-ray and a blood gas are still pending for now. Meanwhile, hemodynamically the patient is doing well. He is hypertensive and he will be started on Celebrex drip for blood pressure control. His cardiac output is at 8.1 with an index of 3.2. He has mediastinal chest tube and left pleural chest tube. Cardiac rhythm is sinus and he has a backup pacemaker. His blood sugar is at 106. He is currently on insulin drip for blood sugar control. No other significant events . Producing adequate amount of urine output. His peak pressures around 24. As I'm dictating, the blood gases arrived at pH of 7.27 with a pCO2 of 54 and pO2 of 98. I made recommendations to increase the tidal volume to 750 and increase the respiratory rate up to 20. His FiO2 will be gradually wean down as tolerated to maintain a saturation above 92%. On 06/01/2017 the patient is being seen in follow-up. I was unable to wean off this patient from the mechanical ventilator. He became acutely hypoxic and had to increase the PEEP up to 15 and gradually moved his tidal volume down to 550. I kept his peak pressures around 28. Static pressures around 27. FiO2 this morning is down to 40%. The rest of the vent settings include an assist- control at the rate of 20, FiO2 of 40%, PEEP of 15 and tidal volume of 550. The patient is doing well. The patient is sedated and is calm and comfortable currently on 40 mics of the prevent. Chest x-ray from today shows improved aeration of the lungs bilaterally. There is improving and the central vascular congestion. There is also patchy left basilar atelectasis and the chest tubes are in place without evidence of pneumothorax. The patient is stable. The patient is on no pressors and the patient is producing adequate amount of urine output. The mediastinal chest tube has drained 90 mL of suicide on this material overnight and 170 mL since surgery and the left pleural chest tube has drained 30 mL of drainage overnight and 85 mL since surgery. The cardiac index is at 3.1. PA pressure is 42/27. No other significant events overnight otherwise. On 06/02/2017 I'm seeing this patient in follow-up. The patient remains intubated and he is still on a mechanical ventilator. His postop day #2. Noted the patient was having difficulties with oxygenation for that reason the weaning process was delayed. Currently is on 8 of PEEP with a FiO2 of 40% and a tidal volume of 550 with a rate of 20. The morning blood gases showed a pH of 7. 48 and a pCO2 of 35 and pO2 of 68. Based on that the FiO2 was brought up to 50%. Upon my earlier morning assessment, the patient's airway pressure were quite low under reasonable with a pressure of 24. He was pulse oxing 97% on room air. Chest x-ray shows postsurgical changes with atelectasis and lung bases bilaterally. There was no evidence of any pneumothorax and leads tube and the rest of the tubes are all in good location. Based on that I dropped a PEEP down to 5 and we are still monitoring his oxygenation. A possibly be a candidate for further weaning if his oxygenation remains stable. Meanwhile the patient remains sedated on Diprivan at 40 mics. He is calm and comfortable. He is hemodynamically stable. The cardiac output is 5.8 with an index of 2.4. His PA pressures around 34/20. He has adequate urine output. Has no pressors. Sternum stable clean and intact. MARITZA drain is present in the lower extremities bilaterally and there is no active drainage. The output from the chest tube is also minimal. His cardiac rhythm is sinus. On 06/03/2017 the patient is being seen in follow-up. The patient is postop day #3. The patient is extubated. Patient doing extremely well. The patient is using incentive spirometer and the patient is pulling more than 1000. The patient is on no pressors. The patient is hemodynamically stable. The patient has an adequate urine output. He is awake alert and communicating following commands and answering questions. The mediastinal chest tubes have been removed. The patient has a left pleural chest tube and output is minimal at this point. Sternum stable clean and intact. The Bath-Kevin catheter was removed. Chest x-ray shows postsurgical changes which are essentially some limited atelectatic changes in lung bases bilaterally. No other significant events overnight. The cardiac rhythm remains sinus. MARITZA drains were removed. The epicardial leads are still in place. Objective - Vital Signs Vital signs: Vital Signs Temp 98.4 F 06/03/17 04:00 Pulse 100 06/03/17 08:38 Resp 20 06/03/17 07:00 BP 146/70 06/03/17 07:00 Pulse Ox 96 06/03/17 07:00 Intake & Output 06/02/17 06/03/17 06/03/17 18:59 06:59 18:59 Intake Total 8910.201 5896.492 36.2 Output Total 1845 884 0 Balance -327.361 220.492 36.2 Weight 133.2 kg Intake: IV 610 312 26 Lactated Ringers 1,000 ml 300 240 20 @ 20 mls/hr IV .Q24H SANG Rx#:[id number] Potassium Phosphate 10 100 mmol In Sodium Chloride 0 .9% 100 ml @ 50 mls/hr IV ONCE ONE Rx#:[id number] cardiac output 99 pressure bag 111 72 6 Intake, IV Titration 307.639 112.492 10.2 Amount Insulin Regular 100 unit 76.333 112.492 10.2 In Sodium Chloride 0.9% 100 ml @ Per Protocol IV .Q0M SANG Rx#:[id number] Propofol 1,000 mg In 100 131.306 ml @ Titrate IV .Q0M SANG Rx#:[id number] Sodium Phosph/0.9 NaCl 10 100 mmol In Saline 100 100ml .bag @ 100 mls/hr IVPB ONCE ONE Rx#:[id number] Oral 600 680 Output: Chest Tube Drainage 40 14 0 Chest Tube Bilateral 0 Mediastinal Chest Tube Left Lateral 40 14 0 Chest Drainage 0 Left Calf 0 Right Calf 0 Urine 1805 870 0 Other: Voiding Method Indwelling Catheter Bedside Commode ABP, PAP, CO, CI - Last Documented Arterial Blood Pressure 154/63 Pulmonary Artery Pressure 31/17 Cardiac Output 7 Cardiac Index 2.8 - Exam Gen. appearance, comfortable likely distress on 47 oxygen nasal cannula. He is obese.Head exam was generally normal. There was no scleral icterus or corneal arcus. Mucous membranes were moist. Neck is supple and the patient has a right IJ Cordis in place. No goiter or neck masses. Lungs sounds are diminished in lung bases bilaterally otherwise clear. Sternum stable clean and intact. Left- sided chest tube is still in place.Cardiac exam revealed the PMI to be normally situated and sized. The rhythm was regular and no extrasystoles were noted during several minutes of auscultation. The first and second heart sounds were normal and physiologic splitting of the second heart sound was noted. There were no murmurs, rubs, clicks, or gallops.Abdominal exam revealed normal bowel sounds. The abdomen was soft, non-tender, and without masses, organomegaly, or appreciable enlargement of the abdominal aorta.Examination of the extremities revealed easily palpable radial, femoral and pedal pulses. There was no cyanosis , clubbing or edema. Surgical wound sites over the lower extremity these are clean and intact and MARITZA drain has been removed.Examination of the skin revealed no evidence of significant rashes, suspicious appearing nevi or other concerning lesions. Neurologically is awake and alert and exam is nonfocal. - Labs CBC & Chem 7: 06/03/17 05:38 06/03/17 05:38 Labs: Abnormal Lab Results - Last 24 Hours (Table) 06/02/17 06/02/17 06/02/17 Range/Units 09:03 09:03 10:05 WBC (3.8-10.6) k/uL RBC (4.30-5.90) m/uL Hgb (13.0-17.5) gm/dL Hct (39.0-53.0) % Neutrophils # (1.3-7.7) k/uL ABG pH (7.35-7.45) ABG Total CO2 25 H (19-24) mmol/L Sodium (137-145) mmol/L Glucose (74-99) mg/dL POC Glucose (mg/dL) 119 H 129 H (75-99) mg/dL Calcium (8.4-10.2) mg/dL Phosphorus (2.5-4.5) mg/dL Total Protein (6.3-8.2) g/dL Albumin (3.5-5.0) g/dL 06/02/17 06/02/17 06/02/17 Range/Units 10:46 11:12 12:19 WBC (3.8-10.6) k/uL RBC (4.30-5.90) m/uL Hgb (13.0-17.5) gm/dL Hct (39.0-53.0) % Neutrophils # (1.3-7.7) k/uL ABG pH 7.48 H (7.35-7.45) ABG Total CO2 27 H (19-24) mmol/L Sodium (137-145) mmol/L Glucose (74-99) mg/dL POC Glucose (mg/dL) 123 H 114 H (75-99) mg/dL Calcium (8.4-10.2) mg/dL Phosphorus (2.5-4.5) mg/dL Total Protein (6.3-8.2) g/dL Albumin (3.5-5.0) g/dL 06/02/17 06/02/17 06/02/17 Range/Units 12:20 13:06 14:12 WBC (3.8-10.6) k/uL RBC (4.30-5.90) m/uL Hgb (13.0-17.5) gm/dL Hct (39.0-53.0) % Neutrophils # (1.3-7.7) k/uL ABG pH (7.35-7.45) ABG Total CO2 (19-24) mmol/L Sodium (137-145) mmol/L Glucose (74-99) mg/dL POC Glucose (mg/dL) 131 H 130 H (75-99) mg/dL Calcium (8.4-10.2) mg/dL Phosphorus 2.4 L (2.5-4.5) mg/dL Total Protein (6.3-8.2) g/dL Albumin (3.5-5.0) g/dL 06/02/17 06/02/17 06/02/17 Range/Units 15:51 17:17 18:08 WBC (3.8-10.6) k/uL RBC (4.30-5.90) m/uL Hgb (13.0-17.5) gm/dL Hct (39.0-53.0) % Neutrophils # (1.3-7.7) k/uL ABG pH (7.35-7.45) ABG Total CO2 (19-24) mmol/L Sodium (137-145) mmol/L Glucose (74-99) mg/dL POC Glucose (mg/dL) 116 H 109 H 124 H (75-99) mg/dL Calcium (8.4-10.2) mg/dL Phosphorus (2.5-4.5) mg/dL Total Protein (6.3-8.2) g/dL Albumin (3.5-5.0) g/dL 06/02/17 06/02/17 06/02/17 Range/Units 19:07 20:05 21:06 WBC (3.8-10.6) k/uL RBC (4.30-5.90) m/uL Hgb (13.0-17.5) gm/dL Hct (39.0-53.0) % Neutrophils # (1.3-7.7) k/uL ABG pH (7.35-7.45) ABG Total CO2 (19-24) mmol/L Sodium (137-145) mmol/L Glucose (74-99) mg/dL POC Glucose (mg/dL) 197 H 176 H 185 H (75-99) mg/dL Calcium (8.4-10.2) mg/dL Phosphorus (2.5-4.5) mg/dL Total Protein (6.3-8.2) g/dL Albumin (3.5-5.0) g/dL 06/02/17 06/02/17 06/03/17 Range/Units 21:59 23:12 00:08 WBC (3.8-10.6) k/uL RBC (4.30-5.90) m/uL Hgb (13.0-17.5) gm/dL Hct (39.0-53.0) % Neutrophils # (1.3-7.7) k/uL ABG pH (7.35-7.45) ABG Total CO2 (19-24) mmol/L Sodium (137-145) mmol/L Glucose (74-99) mg/dL POC Glucose (mg/dL) 179 H 152 H 121 H (75-99) mg/dL Calcium (8.4-10.2) mg/dL Phosphorus (2.5-4.5) mg/dL Total Protein (6.3-8.2) g/dL Albumin (3.5-5.0) g/dL 06/03/17 06/03/17 06/03/17 Range/Units 01:06 02:07 03:20 WBC (3.8-10.6) k/uL RBC (4.30-5.90) m/uL Hgb (13.0-17.5) gm/dL Hct (39.0-53.0) % Neutrophils # (1.3-7.7) k/uL ABG pH (7.35-7.45) ABG Total CO2 (19-24) mmol/L Sodium (137-145) mmol/L Glucose (74-99) mg/dL POC Glucose (mg/dL) 115 H 114 H 123 H (75-99) mg/dL Calcium (8.4-10.2) mg/dL Phosphorus (2.5-4.5) mg/dL Total Protein (6.3-8.2) g/dL Albumin (3.5-5.0) g/dL 06/03/17 06/03/17 06/03/17 Range/Units 04:23 05:02 05:38 WBC 15.1 H (3.8-10.6) k/uL RBC 3.68 L (4.30-5.90) m/uL Hgb 11.1 L (13.0-17.5) gm/dL Hct 35.0 L (39.0-53.0) % Neutrophils # 12.6 H (1.3-7.7) k/uL ABG pH (7.35-7.45) ABG Total CO2 (19-24) mmol/L Sodium (137-145) mmol/L Glucose (74-99) mg/dL POC Glucose (mg/dL) 140 H 127 H (75-99) mg/dL Calcium (8.4-10.2) mg/dL Phosphorus (2.5-4.5) mg/dL Total Protein (6.3-8.2) g/dL Albumin (3.5-5.0) g/dL 06/03/17 06/03/17 06/03/17 Range/Units 05:38 06:56 07:58 WBC (3.8-10.6) k/uL RBC (4.30-5.90) m/uL Hgb (13.0-17.5) gm/dL Hct (39.0-53.0) % Neutrophils # (1.3-7.7) k/uL ABG pH (7.35-7.45) ABG Total CO2 (19-24) mmol/L Sodium 135 L (137-145) mmol/L Glucose 126 H (74-99) mg/dL POC Glucose (mg/dL) 116 H 160 H (75-99) mg/dL Calcium 8.2 L (8.4-10.2) mg/dL Phosphorus (2.5-4.5) mg/dL Total Protein 5.4 L (6.3-8.2) g/dL Albumin 2.6 L (3.5-5.0) g/dL Assessment and Plan Plan: Assessment 1 multivessel coronary artery disease and the patient is post CABG with 4 vessel bypass involving DAY to LAD and saphenous vein graft to PDA, PLB and diagonal. The patient. The patient is postop day #3 2 post thoracotomy. The patient was extubated yesterday without any major difficulties and currently he is showing some limited atelectatic changes in lung bases. Sternal chest tube was removed. The patient still has a left- sided pleural chest tube. 3 diabetes mellitus currently on insulin drip for blood sugar control, currently insulin drip is on 8 units. 4 obesity 5 COPD 6 hypertension 7 hyperlipidemia Plan Patient is hemodynamically stable. Wean the patient's FiO2 as tolerated to maintain a saturation above 90%. Continue using incentive spirometer. Switch this patient to 3point insulin scale per protocol. Advance diet. Give additional dose of Lasix 20 mg IV push twice a day. Rest of the medication were appropriate. Keep the patient ICU for another 24 hours. Follow.
[2017-06-03 09:14] LABS: Glucose,Whole Blood 203 mg/dL (75-99)
[2017-06-03 10:03] VITALS: BMI 39.8
--- NOTE | 2017-06-03 10:13 | P.PN ---
<Alvino Quintana Maame - Last Filed: 06/03/17 10:11> Subjective Progress Note Date: 06/03/17 Principal diagnosis: Symptomatic multivessel coronary artery disease. History of previous myocardial infarction, history of coronary artery disease with stent placement in 2012. Hypertension. Hyperlipidemia. Uncontrolled type 2 diabetes mellitus with admission hemoglobin A1c 10.1%. COPD. Remote smoking history. Morbid obesity. Strong family history of coronary artery disease. Osteoarthritis. POD #3 coronary artery bypass grafting 4 vessels, left internal mammary artery to left anterior descending artery, a reverse greater saphenous vein graft to diagonal artery, a reverse greater saphenous vein graft to posterior descending artery, a reverse greater saphenous vein graft to posterior lateral branch of the right coronary artery. Endoscopic vein harvest of his bilateral greater saphenous vein. Epi-aortic ultrasound. Intraoperative transesophageal echocardiogram. Closure of the sternum using Tritium plating system. The patient is sitting up to the bedside chair. No acute distress. He is tolerating his breakfast without complaints of nausea. He currently rates his pain 3 out of 10 on the pain scale. He was extubated yesterday at 11 AM. Objective - Vital Signs Vital signs: Vital Signs Temp 98.4 F 06/03/17 04:00 Pulse 103 H 06/03/17 07:00 Resp 20 06/03/17 07:00 BP 146/70 06/03/17 07:00 Pulse Ox 96 06/03/17 07:00 Intake & Output 06/02/17 06/03/17 06/03/17 18:59 06:59 18:59 Intake Total 2530.028 9689.492 36.2 Output Total 1845 884 0 Balance -327.361 220.492 36.2 Weight 133.2 kg Intake: IV 610 312 26 Lactated Ringers 1,000 ml 300 240 20 @ 20 mls/hr IV .Q24H [facility] Rx#:[id number] Potassium Phosphate 10 100 mmol In Sodium Chloride 0 .9% 100 ml @ 50 mls/hr IV ONCE ONE Rx#:[id number] cardiac output 99 pressure bag 111 72 6 Intake, IV Titration 307.639 112.492 10.2 Amount Insulin Regular 100 unit 76.333 112.492 10.2 In Sodium Chloride 0.9% 100 ml @ Per Protocol IV .Q0M [facility] Rx#:[id number] Propofol 1,000 mg In 100 131.306 ml @ Titrate IV .Q0M [facility] Rx#:[id number] Sodium Phosph/0.9 NaCl 10 100 mmol In Saline 100 100ml .bag @ 100 mls/hr IVPB ONCE ONE Rx#:[id number] Oral 600 680 Output: Chest Tube Drainage 40 14 0 Chest Tube Bilateral 0 Mediastinal Chest Tube Left Lateral 40 14 0 Chest Drainage 0 Left Calf 0 Right Calf 0 Urine 1805 870 0 Other: Voiding Method Indwelling Catheter Bedside Commode ABP, PAP, CO, CI - Last Documented Arterial Blood Pressure 154/63 Pulmonary Artery Pressure 31/17 Cardiac Output 7 Cardiac Index 2.8 - Constitutional General appearance: Present: cooperative, morbidly obese, no acute distress - Neck Details: Right IJ Cordis in place with continuous CVP monitoring. Current CVP is 10. No JVD, no lymphadenopathy. - Respiratory Details: Lung sounds are essentially clear throughout, few scattered crackles to his bilateral bases. Respirations are symmetrical and nonlabored. Oxygen saturation are 93% on 4 L nasal cannula. Achieving 8727-4642 mL on his incentive spirometry. Left pleural chest tube without air leak. Chest tube remains to low continuous wall suction -20 cm H2O. Draining thin serosanguineous drainage, 5 mL output in the last 8 hours, 100 mL output in the last 24 hours. - Cardiovascular Details: Regular rhythm and rate. S1 and S2 present, negative for S3, gallop or murmur. Sternum is stable. Heart hugger is in place and he is demonstrating appropriate use of his heart hugger. Knee-high HALEY hose and sequential compression devices in place to his bilateral lower extremities. Bedside telemetry showing sinus tachycardia heart rate 108. Atrial and ventricular epicardial pacemaker wires present and grounded. No edema present. - Gastrointestinal Gastrointestinal Comment(s): Abdomen is soft, nontender and nondistended. Active bowel sounds to all 4 abdominal quadrants. He is tolerating oral intake. Passing flatus. - Genitourinary Genitourinary Comment(s): Urine output adequate. 550 mL output in the last 8 hours of clear yellow urine. - Integumentary Integumentary Comment(s): Midline sternal incision clean dry and well approximated. Dermabond dressing clean dry and intact. Bilateral lower extremity EVH site clean dry and well approximated. No drainage noted. - Neurologic Neurologic Comment(s): No focal deficits. Neurologic: Present: CNII-XII intact - Musculoskeletal Musculoskeletal: Present: gait normal, strength equal bilaterally - Psychiatric Psychiatric: Present: A&O x's 3, appropriate affect, intact judgment & insight - Allied health notes Allied health notes reviewed: nursing - Labs CBC & Chem 7: 06/03/17 05:38 06/03/17 05:38 Labs: Abnormal Lab Results - Last 24 Hours (Table) 06/02/17 06/02/17 06/02/17 Range/Units 09:03 09:03 10:05 WBC (3.8-10.6) k/uL RBC (4.30-5.90) m/uL Hgb (13.0-17.5) gm/dL Hct (39.0-53.0) % Neutrophils # (1.3-7.7) k/uL ABG pH (7.35-7.45) ABG Total CO2 25 H (19-24) mmol/L Sodium (137-145) mmol/L Glucose (74-99) mg/dL POC Glucose (mg/dL) 119 H 129 H (75-99) mg/dL Calcium (8.4-10.2) mg/dL Phosphorus (2.5-4.5) mg/dL Total Protein (6.3-8.2) g/dL Albumin (3.5-5.0) g/dL 06/02/17 06/02/17 06/02/17 Range/Units 10:46 11:12 12:19 WBC (3.8-10.6) k/uL RBC (4.30-5.90) m/uL Hgb (13.0-17.5) gm/dL Hct (39.0-53.0) % Neutrophils # (1.3-7.7) k/uL ABG pH 7.48 H (7.35-7.45) ABG Total CO2 27 H (19-24) mmol/L Sodium (137-145) mmol/L Glucose (74-99) mg/dL POC Glucose (mg/dL) 123 H 114 H (75-99) mg/dL Calcium (8.4-10.2) mg/dL Phosphorus (2.5-4.5) mg/dL Total Protein (6.3-8.2) g/dL Albumin (3.5-5.0) g/dL 06/02/17 06/02/17 06/02/17 Range/Units 12:20 13:06 14:12 WBC (3.8-10.6) k/uL RBC (4.30-5.90) m/uL Hgb (13.0-17.5) gm/dL Hct (39.0-53.0) % Neutrophils # (1.3-7.7) k/uL ABG pH (7.35-7.45) ABG Total CO2 (19-24) mmol/L Sodium (137-145) mmol/L Glucose (74-99) mg/dL POC Glucose (mg/dL) 131 H 130 H (75-99) mg/dL Calcium (8.4-10.2) mg/dL Phosphorus 2.4 L (2.5-4.5) mg/dL Total Protein (6.3-8.2) g/dL Albumin (3.5-5.0) g/dL 06/02/17 06/02/17 06/02/17 Range/Units 15:51 17:17 18:08 WBC (3.8-10.6) k/uL RBC (4.30-5.90) m/uL Hgb (13.0-17.5) gm/dL Hct (39.0-53.0) % Neutrophils # (1.3-7.7) k/uL ABG pH (7.35-7.45) ABG Total CO2 (19-24) mmol/L Sodium (137-145) mmol/L Glucose (74-99) mg/dL POC Glucose (mg/dL) 116 H 109 H 124 H (75-99) mg/dL Calcium (8.4-10.2) mg/dL Phosphorus (2.5-4.5) mg/dL Total Protein (6.3-8.2) g/dL Albumin (3.5-5.0) g/dL 06/02/17 06/02/17 06/02/17 Range/Units 19:07 20:05 21:06 WBC (3.8-10.6) k/uL RBC (4.30-5.90) m/uL Hgb (13.0-17.5) gm/dL Hct (39.0-53.0) % Neutrophils # (1.3-7.7) k/uL ABG pH (7.35-7.45) ABG Total CO2 (19-24) mmol/L Sodium (137-145) mmol/L Glucose (74-99) mg/dL POC Glucose (mg/dL) 197 H 176 H 185 H (75-99) mg/dL Calcium (8.4-10.2) mg/dL Phosphorus (2.5-4.5) mg/dL Total Protein (6.3-8.2) g/dL Albumin (3.5-5.0) g/dL 06/02/17 06/02/17 06/03/17 Range/Units 21:59 23:12 00:08 WBC (3.8-10.6) k/uL RBC (4.30-5.90) m/uL Hgb (13.0-17.5) gm/dL Hct (39.0-53.0) % Neutrophils # (1.3-7.7) k/uL ABG pH (7.35-7.45) ABG Total CO2 (19-24) mmol/L Sodium (137-145) mmol/L Glucose (74-99) mg/dL POC Glucose (mg/dL) 179 H 152 H 121 H (75-99) mg/dL Calcium (8.4-10.2) mg/dL Phosphorus (2.5-4.5) mg/dL Total Protein (6.3-8.2) g/dL Albumin (3.5-5.0) g/dL 06/03/17 06/03/17 06/03/17 Range/Units 01:06 02:07 03:20 WBC (3.8-10.6) k/uL RBC (4.30-5.90) m/uL Hgb (13.0-17.5) gm/dL Hct (39.0-53.0) % Neutrophils # (1.3-7.7) k/uL ABG pH (7.35-7.45) ABG Total CO2 (19-24) mmol/L Sodium (137-145) mmol/L Glucose (74-99) mg/dL POC Glucose (mg/dL) 115 H 114 H 123 H (75-99) mg/dL Calcium (8.4-10.2) mg/dL Phosphorus (2.5-4.5) mg/dL Total Protein (6.3-8.2) g/dL Albumin (3.5-5.0) g/dL 06/03/17 06/03/17 06/03/17 Range/Units 04:23 05:02 05:38 WBC 15.1 H (3.8-10.6) k/uL RBC 3.68 L (4.30-5.90) m/uL Hgb 11.1 L (13.0-17.5) gm/dL Hct 35.0 L (39.0-53.0) % Neutrophils # 12.6 H (1.3-7.7) k/uL ABG pH (7.35-7.45) ABG Total CO2 (19-24) mmol/L Sodium (137-145) mmol/L Glucose (74-99) mg/dL POC Glucose (mg/dL) 140 H 127 H (75-99) mg/dL Calcium (8.4-10.2) mg/dL Phosphorus (2.5-4.5) mg/dL Total Protein (6.3-8.2) g/dL Albumin (3.5-5.0) g/dL 06/03/17 06/03/17 06/03/17 Range/Units 05:38 06:56 07:58 WBC (3.8-10.6) k/uL RBC (4.30-5.90) m/uL Hgb (13.0-17.5) gm/dL Hct (39.0-53.0) % Neutrophils # (1.3-7.7) k/uL ABG pH (7.35-7.45) ABG Total CO2 (19-24) mmol/L Sodium 135 L (137-145) mmol/L Glucose 126 H (74-99) mg/dL POC Glucose (mg/dL) 116 H 160 H (75-99) mg/dL Calcium 8.2 L (8.4-10.2) mg/dL Phosphorus (2.5-4.5) mg/dL Total Protein 5.4 L (6.3-8.2) g/dL Albumin 2.6 L (3.5-5.0) g/dL - Imaging and Cardiology Chest x-ray: report reviewed, image reviewed Assessment and Plan (1) Uncontrolled type 2 diabetes mellitus Status: Acute (2) COPD (chronic obstructive pulmonary disease) Status: Acute (3) History of heart artery stent Status: Acute (4) Hyperlipidemia Status: Acute (5) Previous myocardial infarction older than 8 weeks Status: Acute (6) Coronary artery disease Status: Acute (7) Family history of coronary artery disease Status: Acute (8) Hypertension Status: Acute (9) Morbid obesity Status: Acute (10) Tobacco dependence in remission Status: Acute Plan: 1. Continue Plavix, statin, heparin subcu, beta claudette. Will increase his metoprolol to 50 mg by mouth twice a day. We will add lisinopril 5 mg by mouth twice a day. No aspirin secondary to ALLERGY. 2. Pulmonary management per Dr. Christiansen recommendations. 3. Increase activity as tolerated. Physical and occupational therapy has been consulted. 4. GI/DVT prophylaxis. 5. Insulin management per primary care service. 6. Will monitor daily labs, chest x-rays. 7. Continue Lasix 20 mg IV twice a day. 8. We will discontinue his left pleural chest tube today. Discontinue right IJ Cordis. 9. He will be transferred to [address] [place] [address] for further rehabilitation and monitoring. 10. More recommendations as patient progresses. Left pleural chest tube removed at 10:10 AM without incident. 4 x 4 gauze dressing, with Vaseline impregnated gauze to cover and secured with tape. Time with Patient: Greater than 30 <Margarita Gillette - Last Filed: 06/03/17 13:31> Objective - Vital Signs Vital signs: Vital Signs Temp 97.8 F 06/03/17 12:00 Pulse 94 06/03/17 12:17 Resp 16 06/03/17 12:00 BP 181/76 06/03/17 12:00 Pulse Ox 94 L 06/03/17 12:00 Intake & Output 06/02/17 06/03/17 06/03/17 18:59 06:59 18:59 Intake Total 4252.083 9192.492 1174.675 Output Total 0210 734 5030 Balance -327.361 220.492 -725.325 Weight 133.2 kg 133.2 kg Intake: IV 610 312 138 Lactated Ringers 1,000 ml 300 240 120 @ 20 mls/hr IV .Q24H [facility] Rx#:[id number] Potassium Phosphate 10 100 mmol In Sodium Chloride 0 .9% 100 ml @ 50 mls/hr IV ONCE ONE Rx#:[id number] cardiac output 99 pressure bag 111 72 18 Intake, IV Titration 307.639 112.492 36.675 Amount Insulin Regular 100 unit 76.333 112.492 36.675 In Sodium Chloride 0.9% 100 ml @ Per Protocol IV .Q0M [facility] Rx#:[id number] Propofol 1,000 mg In 100 131.306 ml @ Titrate IV .Q0M [facility] Rx#:[id number] Sodium Phosph/0.9 NaCl 10 100 mmol In Saline 100 100ml .bag @ 100 mls/hr IVPB ONCE ONE Rx#:[id number] Oral 297 209 5034 Output: Chest Tube Drainage 40 14 0 Chest Tube Bilateral 0 Mediastinal Chest Tube Left Lateral 40 14 0 Chest Drainage 0 Left Calf 0 Right Calf 0 Urine 5915 631 6668 Other: Voiding Method Indwelling Catheter Bedside Commode Bedside Commode Urinal ABP, PAP, CO, CI - Last Documented Arterial Blood Pressure 139/56 Pulmonary Artery Pressure 31/17 Cardiac Output 7 Cardiac Index 2.8 - Labs CBC & Chem 7: 06/03/17 05:38 06/03/17 05:38 Labs: Abnormal Lab Results - Last 24 Hours (Table) 06/02/17 06/02/17 06/02/17 Range/Units 14:12 15:51 17:17 WBC (3.8-10.6) k/uL RBC (4.30-5.90) m/uL Hgb (13.0-17.5) gm/dL Hct (39.0-53.0) % Neutrophils # (1.3-7.7) k/uL Sodium (137-145) mmol/L Glucose (74-99) mg/dL POC Glucose (mg/dL) 130 H 116 H 109 H (75-99) mg/dL Hemoglobin A1c (4.2-6.1) % Calcium (8.4-10.2) mg/dL Total Protein (6.3-8.2) g/dL Albumin (3.5-5.0) g/dL 06/02/17 06/02/17 06/02/17 Range/Units 18:08 19:07 20:05 WBC (3.8-10.6) k/uL RBC (4.30-5.90) m/uL Hgb (13.0-17.5) gm/dL Hct (39.0-53.0) % Neutrophils # (1.3-7.7) k/uL Sodium (137-145) mmol/L Glucose (74-99) mg/dL POC Glucose (mg/dL) 124 H 197 H 176 H (75-99) mg/dL Hemoglobin A1c (4.2-6.1) % Calcium (8.4-10.2) mg/dL Total Protein (6.3-8.2) g/dL Albumin (3.5-5.0) g/dL 06/02/17 06/02/17 06/02/17 Range/Units 21:06 21:59 23:12 WBC (3.8-10.6) k/uL RBC (4.30-5.90) m/uL Hgb (13.0-17.5) gm/dL Hct (39.0-53.0) % Neutrophils # (1.3-7.7) k/uL Sodium (137-145) mmol/L Glucose (74-99) mg/dL POC Glucose (mg/dL) 185 H 179 H 152 H (75-99) mg/dL Hemoglobin A1c (4.2-6.1) % Calcium (8.4-10.2) mg/dL Total Protein (6.3-8.2) g/dL Albumin (3.5-5.0) g/dL 06/03/17 06/03/17 06/03/17 Range/Units 00:08 01:06 02:07 WBC (3.8-10.6) k/uL RBC (4.30-5.90) m/uL Hgb (13.0-17.5) gm/dL Hct (39.0-53.0) % Neutrophils # (1.3-7.7) k/uL Sodium (137-145) mmol/L Glucose (74-99) mg/dL POC Glucose (mg/dL) 121 H 115 H 114 H (75-99) mg/dL Hemoglobin A1c (4.2-6.1) % Calcium (8.4-10.2) mg/dL Total Protein (6.3-8.2) g/dL Albumin (3.5-5.0) g/dL 06/03/17 06/03/17 06/03/17 Range/Units 03:20 04:23 05:02 WBC (3.8-10.6) k/uL RBC (4.30-5.90) m/uL Hgb (13.0-17.5) gm/dL Hct (39.0-53.0) % Neutrophils # (1.3-7.7) k/uL Sodium (137-145) mmol/L Glucose (74-99) mg/dL POC Glucose (mg/dL) 123 H 140 H 127 H (75-99) mg/dL Hemoglobin A1c (4.2-6.1) % Calcium (8.4-10.2) mg/dL Total Protein (6.3-8.2) g/dL Albumin (3.5-5.0) g/dL 06/03/17 06/03/17 06/03/17 Range/Units 05:38 05:38 05:38 WBC 15.1 H (3.8-10.6) k/uL RBC 3.68 L (4.30-5.90) m/uL Hgb 11.1 L (13.0-17.5) gm/dL Hct 35.0 L (39.0-53.0) % Neutrophils # 12.6 H (1.3-7.7) k/uL Sodium 135 L (137-145) mmol/L Glucose 126 H (74-99) mg/dL POC Glucose (mg/dL) (75-99) mg/dL Hemoglobin A1c 9.7 H (4.2-6.1) % Calcium 8.2 L (8.4-10.2) mg/dL Total Protein 5.4 L (6.3-8.2) g/dL Albumin 2.6 L (3.5-5.0) g/dL 06/03/17 06/03/17 06/03/17 Range/Units 06:56 07:58 09:12 WBC (3.8-10.6) k/uL RBC (4.30-5.90) m/uL Hgb (13.0-17.5) gm/dL Hct (39.0-53.0) % Neutrophils # (1.3-7.7) k/uL Sodium (137-145) mmol/L Glucose (74-99) mg/dL POC Glucose (mg/dL) 116 H 160 H 203 H (75-99) mg/dL Hemoglobin A1c (4.2-6.1) % Calcium (8.4-10.2) mg/dL Total Protein (6.3-8.2) g/dL Albumin (3.5-5.0) g/dL 06/03/17 06/03/17 06/03/17 Range/Units 10:11 11:01 12:08 WBC (3.8-10.6) k/uL RBC (4.30-5.90) m/uL Hgb (13.0-17.5) gm/dL Hct (39.0-53.0) % Neutrophils # (1.3-7.7) k/uL Sodium (137-145) mmol/L Glucose (74-99) mg/dL POC Glucose (mg/dL) 163 H 150 H 137 H (75-99) mg/dL Hemoglobin A1c (4.2-6.1) % Calcium (8.4-10.2) mg/dL Total Protein (6.3-8.2) g/dL Albumin (3.5-5.0) g/dL Assessment and Plan Plan: Discussed with Dr Bell. In view of recurrent PAF, will start OAG (coumadin) tonight, decrease ASA to 81 and eventually stop Plavix once INR on its way up. Margarita Gillette MD
[2017-06-03 10:15] LABS: Glucose,Whole Blood 163 mg/dL (75-99)
[2017-06-03] MEDS ORDERED: LISINOPRIL 10 MG TAB PO SCH (10:15)
[2017-06-03] MEDS: LISINOPRIL 5 MG TAB PO SCH ×2 (10:39→20:22)
[2017-06-03 11:04] LABS: Glucose,Whole Blood 150 mg/dL (75-99)
--- NOTE | 2017-06-03 11:06 | PN ---
PROGRESS NOTE Mr. Heredia is a 67-year-old male status post coronary artery bypass grafting. He is extubated, doing well this morning. He denies any chest pain. His chest tube is about to be removed. He has no dizziness palpitation. He denies any nausea. He continues to be in sinus mechanism. He has no evidence of tachy or bradyarrhythmia. He continues to be at this time on Lipitor 40 mg daily, Plavix 75 mg daily, Lasix 20 mg IV q.12 hours, lisinopril 5 mg twice a day and metoprolol tartrate 50 mg twice a day. PHYSICAL EXAMINATION: Blood pressure running in the 130s with a heart rate in the 90s. LUNGS: Mild decrease in breath sounds. HEART: Regular rate and rhythm. S1, S2. No S3. No rub. ABDOMEN: Soft, nontender. EXTREMITIES: +1 edema. LAB DATA: BUN and creatinine 16 and 0.7, potassium 4.0. Hemoglobin of 11.1. IMPRESSION: 1. Status post coronary artery bypass grafting. 2. Hypertension. 3. History of obstructive lung disease. 4. Hyperlipidemia. 5. ALLERGY TO ASPIRIN with hives. RECOMMENDATION: He will continue on his present therapy. Depending on his blood pressure, the dose of the SHAR inhibitor can be further adjusted. His activity level will be increased gradually and depending on his progress further recommendation will be made. MMODL / IJN: [id number] /
[2017-06-03 12:10] LABS: Glucose,Whole Blood 137 mg/dL (75-99)
[2017-06-03] MEDS: INSULIN LISPRO (humaLOG) 300 UNIT/3 ML VIAL SQ SCH ×5 (12:10→20:21)
[2017-06-03 12:18] LABS: Hemoglobin A1C 9.7 % (4.2-6.1)
--- NOTE | 2017-06-03 12:18 | P.PN ---
Subjective Progress Note Date: 06/03/17 This is a 67-year-old male patient of Dr David Palomares with a past medical history of coronary artery disease with previous coronary stent, hypertension, diabetes mellitus type 2, COPD, obesity and a strong family history for CAD, who presented to his senior biostatistician/group leader with increased shortness of breath. Patient was out for a bike ride 3 blocks with his and developed severe chest pain with previous episodes of chest pain. He contacted his senior biostatistician/group leader, Dr. Sarmiento. He had a cardiac catheterization that showed diffuse disease in the LAD with 70% stenosis in the midportion 70% stenosis in the large diagonal branch proximal circumflex occlusion and a heavily calcified right coronary artery with a 80-90% stenosis in the distal RCA. The patient was referred to CT surgery and the patient underwent four-vessel bypass surgery completed yesterday. He remains intubated and on mechanical ventilation. His was at the bedside and the patient is being checked for possible extubation over the next few hours. 06/02: Patient remains in the intensive care unit and was successfully extubated at 11 AM today. Hemoglobin is stable at 11.4. He states his chest is sore. Breathing is stable at this time. Chest tubes, Ly catheter, MARITZA drains, pacemaker wires in place. Patient has started using incentive spirometry. 06/03: Patient remains in intensive care unit. He is sitting up in a chair this morning. He is scheduled to have left pleural chest tube and cordis removed today. We will plan to transition him off insulin drip and onto Lantus and scheduled Humalog and scale. He denies having any nausea or vomiting. His diet is being advanced. He has passed gas but has not had a bowel movement. Objective - Vital Signs Vital signs: Vital Signs Temp 98.4 F 06/03/17 04:00 Pulse 103 H 06/03/17 07:00 Resp 20 06/03/17 07:00 BP 146/70 06/03/17 07:00 Pulse Ox 96 06/03/17 07:00 Intake & Output 06/02/17 06/03/17 06/03/17 18:59 06:59 18:59 Intake Total 4869.552 2743.492 36.2 Output Total 1845 884 0 Balance -327.361 220.492 36.2 Weight 133.2 kg Intake: IV 610 312 26 Lactated Ringers 1,000 ml 300 240 20 @ 20 mls/hr IV .Q24H [facility] Rx#:[id number] Potassium Phosphate 10 100 mmol In Sodium Chloride 0 .9% 100 ml @ 50 mls/hr IV ONCE ONE Rx#:[id number] cardiac output 99 pressure bag 111 72 6 Intake, IV Titration 307.639 112.492 10.2 Amount Insulin Regular 100 unit 76.333 112.492 10.2 In Sodium Chloride 0.9% 100 ml @ Per Protocol IV .Q0M [facility] Rx#:[id number] Propofol 1,000 mg In 100 131.306 ml @ Titrate IV .Q0M [facility] Rx#:[id number] Sodium Phosph/0.9 NaCl 10 100 mmol In Saline 100 100ml .bag @ 100 mls/hr IVPB ONCE ONE Rx#:[id number] Oral 600 680 Output: Chest Tube Drainage 40 14 0 Chest Tube Bilateral 0 Mediastinal Chest Tube Left Lateral 40 14 0 Chest Drainage 0 Left Calf 0 Right Calf 0 Urine 1805 870 0 Other: Voiding Method Indwelling Catheter Bedside Commode ABP, PAP, CO, CI - Last Documented Arterial Blood Pressure 154/63 Pulmonary Artery Pressure 31/17 Cardiac Output 7 Cardiac Index 2.8 - Exam General appearance: average body habitus, mild distress - EENT Eyes: anicteric sclerae, normal appearance ENT: NA/AT, other (ET tube placed on oral gastric tube in place.), no thrush Ears: bilateral: normal - Neck Neck: no lymphadenopathy Carotids: bilateral: upstroke delayed Thyroid: bilateral: normal size - Respiratory Respiratory: bilateral: diminished, rhonchi, negative: dullness, rales, wheezing , prolonged expiration - Cardiovascular Rhythm: regular Heart sounds: normal: S1, S2 Abnormal Heart Sounds: systolic murmur, rub, S3 Gallop, no click - Gastrointestinal General gastrointestinal: normal bowel sounds, soft, no splenomegaly, no tenderness, no umbilical hernia, no ventral hernia - Integumentary Integumentary: normal, normal turgor - Psychiatric Psychiatric: no A&O x's 3, no appropriate affect, no intact judgment & insight - Labs CBC & Chem 7: 06/03/17 05:38 06/03/17 05:38 Labs: Abnormal Lab Results - Last 24 Hours (Table) 06/02/17 06/02/17 06/02/17 Range/Units 09:03 09:03 10:05 WBC (3.8-10.6) k/uL RBC (4.30-5.90) m/uL Hgb (13.0-17.5) gm/dL Hct (39.0-53.0) % Neutrophils # (1.3-7.7) k/uL ABG pH (7.35-7.45) ABG Total CO2 25 H (19-24) mmol/L Sodium (137-145) mmol/L Glucose (74-99) mg/dL POC Glucose (mg/dL) 119 H 129 H (75-99) mg/dL Calcium (8.4-10.2) mg/dL Phosphorus (2.5-4.5) mg/dL Total Protein (6.3-8.2) g/dL Albumin (3.5-5.0) g/dL 06/02/17 06/02/17 06/02/17 Range/Units 10:46 11:12 12:19 WBC (3.8-10.6) k/uL RBC (4.30-5.90) m/uL Hgb (13.0-17.5) gm/dL Hct (39.0-53.0) % Neutrophils # (1.3-7.7) k/uL ABG pH 7.48 H (7.35-7.45) ABG Total CO2 27 H (19-24) mmol/L Sodium (137-145) mmol/L Glucose (74-99) mg/dL POC Glucose (mg/dL) 123 H 114 H (75-99) mg/dL Calcium (8.4-10.2) mg/dL Phosphorus (2.5-4.5) mg/dL Total Protein (6.3-8.2) g/dL Albumin (3.5-5.0) g/dL 06/02/17 06/02/17 06/02/17 Range/Units 12:20 13:06 14:12 WBC (3.8-10.6) k/uL RBC (4.30-5.90) m/uL Hgb (13.0-17.5) gm/dL Hct (39.0-53.0) % Neutrophils # (1.3-7.7) k/uL ABG pH (7.35-7.45) ABG Total CO2 (19-24) mmol/L Sodium (137-145) mmol/L Glucose (74-99) mg/dL POC Glucose (mg/dL) 131 H 130 H (75-99) mg/dL Calcium (8.4-10.2) mg/dL Phosphorus 2.4 L (2.5-4.5) mg/dL Total Protein (6.3-8.2) g/dL Albumin (3.5-5.0) g/dL 06/02/17 06/02/17 06/02/17 Range/Units 15:51 17:17 18:08 WBC (3.8-10.6) k/uL RBC (4.30-5.90) m/uL Hgb (13.0-17.5) gm/dL Hct (39.0-53.0) % Neutrophils # (1.3-7.7) k/uL ABG pH (7.35-7.45) ABG Total CO2 (19-24) mmol/L Sodium (137-145) mmol/L Glucose (74-99) mg/dL POC Glucose (mg/dL) 116 H 109 H 124 H (75-99) mg/dL Calcium (8.4-10.2) mg/dL Phosphorus (2.5-4.5) mg/dL Total Protein (6.3-8.2) g/dL Albumin (3.5-5.0) g/dL 06/02/17 06/02/17 06/02/17 Range/Units 19:07 20:05 21:06 WBC (3.8-10.6) k/uL RBC (4.30-5.90) m/uL Hgb (13.0-17.5) gm/dL Hct (39.0-53.0) % Neutrophils # (1.3-7.7) k/uL ABG pH (7.35-7.45) ABG Total CO2 (19-24) mmol/L Sodium (137-145) mmol/L Glucose (74-99) mg/dL POC Glucose (mg/dL) 197 H 176 H 185 H (75-99) mg/dL Calcium (8.4-10.2) mg/dL Phosphorus (2.5-4.5) mg/dL Total Protein (6.3-8.2) g/dL Albumin (3.5-5.0) g/dL 06/02/17 06/02/17 06/03/17 Range/Units 21:59 23:12 00:08 WBC (3.8-10.6) k/uL RBC (4.30-5.90) m/uL Hgb (13.0-17.5) gm/dL Hct (39.0-53.0) % Neutrophils # (1.3-7.7) k/uL ABG pH (7.35-7.45) ABG Total CO2 (19-24) mmol/L Sodium (137-145) mmol/L Glucose (74-99) mg/dL POC Glucose (mg/dL) 179 H 152 H 121 H (75-99) mg/dL Calcium (8.4-10.2) mg/dL Phosphorus (2.5-4.5) mg/dL Total Protein (6.3-8.2) g/dL Albumin (3.5-5.0) g/dL 06/03/17 06/03/17 06/03/17 Range/Units 01:06 02:07 03:20 WBC (3.8-10.6) k/uL RBC (4.30-5.90) m/uL Hgb (13.0-17.5) gm/dL Hct (39.0-53.0) % Neutrophils # (1.3-7.7) k/uL ABG pH (7.35-7.45) ABG Total CO2 (19-24) mmol/L Sodium (137-145) mmol/L Glucose (74-99) mg/dL POC Glucose (mg/dL) 115 H 114 H 123 H (75-99) mg/dL Calcium (8.4-10.2) mg/dL Phosphorus (2.5-4.5) mg/dL Total Protein (6.3-8.2) g/dL Albumin (3.5-5.0) g/dL 06/03/17 06/03/17 06/03/17 Range/Units 04:23 05:02 05:38 WBC 15.1 H (3.8-10.6) k/uL RBC 3.68 L (4.30-5.90) m/uL Hgb 11.1 L (13.0-17.5) gm/dL Hct 35.0 L (39.0-53.0) % Neutrophils # 12.6 H (1.3-7.7) k/uL ABG pH (7.35-7.45) ABG Total CO2 (19-24) mmol/L Sodium (137-145) mmol/L Glucose (74-99) mg/dL POC Glucose (mg/dL) 140 H 127 H (75-99) mg/dL Calcium (8.4-10.2) mg/dL Phosphorus (2.5-4.5) mg/dL Total Protein (6.3-8.2) g/dL Albumin (3.5-5.0) g/dL 06/03/17 06/03/17 06/03/17 Range/Units 05:38 06:56 07:58 WBC (3.8-10.6) k/uL RBC (4.30-5.90) m/uL Hgb (13.0-17.5) gm/dL Hct (39.0-53.0) % Neutrophils # (1.3-7.7) k/uL ABG pH (7.35-7.45) ABG Total CO2 (19-24) mmol/L Sodium 135 L (137-145) mmol/L Glucose 126 H (74-99) mg/dL POC Glucose (mg/dL) 116 H 160 H (75-99) mg/dL Calcium 8.2 L (8.4-10.2) mg/dL Phosphorus (2.5-4.5) mg/dL Total Protein 5.4 L (6.3-8.2) g/dL Albumin 2.6 L (3.5-5.0) g/dL Assessment and Plan Plan: 1. Acute hypoxic vent dependent respiratory failure post CABG 4 (unexpected due to underlying COPD). Patient has been successfully extubated. Continue current plan per Dr. Christiansen. 2. Coronary artery disease status post CABG with 4 vessel bypass involving DAY to LAD and saphenous vein graft to PDA, PLV and diagonal. Continue patient on Lipitor 40 mg, Lasix 20 mg IV every 12 hours, Plavix 75 mg daily, Lopressor 50 mg twice daily. 3. History of CAD with prior stent in 2012. Maintain the patient on Lipitor 40 mg a day as well as metoprolol 50 mg twice every day. 3. Diabetes mellitus type 2. Currently on insulin drip and will switch him over to Lantus 40 units at bedtime along with Humalog 13 units with meals and scale. 4. Morbid obesity. Patient would need to go into the a full weight loss program without the need for any surgical intervention. 5. History of COPD without exacerbation. Continue aggressive pulmonary toileting with DuoNeb. 6. Hypertension hypertensive cardio vascular disease. Continue patient on metoprolol. 7. Hyperlipidemia. Continue lipitor increased to 40mg daily. Discharge plan: To be determined Impression and plan of care have been directed as dictated by the signing physician. Ewelina Hernandez nurse practitioner acting as scribe for signing physician.
[2017-06-03] MEDS: LACTATED RINGERS 1,000 ML IV SCH (13:31)
[2017-06-03 17:24] LABS: Glucose,Whole Blood 194 mg/dL (75-99)
[2017-06-03 20:07] LABS: Glucose,Whole Blood 212 mg/dL (75-99)
[2017-06-03] MEDS: SENNOSIDES-DOCUSATE SODIUM 1 EACH TAB PO SCH (20:27)
[2017-06-03] MEDS ORDERED: INSULIN GLARGINE 100 UNIT/ML 10 ML VIAL SQ SCH (21:00)
[2017-06-04] MEDS: HYDROcodone/APAP 5-325MG 1 EACH TAB PO PRN ×5 (01:42→21:29)
[2017-06-04 05:19] LABS: Basophils % (A) 0 %; CH 29.9; CHCM 31.7; Eosinophils # (A) 0.3 k/uL (0-0.7); Eosinophils % (A) 2 %; HCT 32.6 % (39.0-53.0); HDW 2.84; HGB 10.3 gm/dL (13.0-17.5); Luc # (Auto) 0.19; Luc % (Auto) 2; Lymphocytes # (A) 1.5 k/uL (1.0-4.8); Lymphocytes % (A) 13 %; MCH 29.9 pg (25.0-35.0); MCHC 31.6 g/dL (31.0-37.0); MCV 94.9 fL (80.0-100.0); Mean Platelet Volume 7.8; Monocytes # (A) 0.6 k/uL (0-1.0); Monocytes % (A) 5 %; Neutrophils # (A) 9.6 k/uL (1.3-7.7); Neutrophils % (A) 79 %; RBC 3.43 m/uL (4.30-5.90); WBC 12.1 k/uL (3.8-10.6); WBC (Perox) 11.86
[2017-06-04 05:31] LABS: Anion Gap 7 mmol/L; Blood Urea Nitrogen 23 mg/dL (9-20); Calcium 8.3 mg/dL (8.4-10.2); Carbon Dioxide 29 mmol/L (22-30); Chloride 98 mmol/L (98-107); Glucose 181 mg/dL (74-99); Non-African American GFR(MDRD) >60 (>60 ml/min/1.73 sqM); Phosphorus 3.2 mg/dL (2.5-4.5); Potassium 4.4 mmol/L (3.5-5.1); Sodium 134 mmol/L (137-145)
[2017-06-04 07:35] LABS: Glucose,Whole Blood 183 mg/dL (75-99)
[2017-06-04] MEDS: INSULIN LISPRO (humaLOG) 300 UNIT/3 ML VIAL SQ SCH ×7 (08:10→21:21)
--- NOTE | 2017-06-04 08:39 | P.PN ---
<Alvino Quintana - Last Filed: 06/04/17 08:30> Subjective Progress Note Date: 06/04/17 Principal diagnosis: Symptomatic multivessel coronary artery disease. History of previous myocardial infarction, history of coronary artery disease with stent placement in 2012. Hypertension. Hyperlipidemia. Uncontrolled type 2 diabetes mellitus with admission hemoglobin A1c 10.1%. COPD. Remote smoking history. Morbid obesity. Strong family history of coronary artery disease. Osteoarthritis. POD #4 coronary artery bypass grafting 4 vessels, left internal mammary artery to left anterior descending artery, a reverse greater saphenous vein graft to diagonal artery, a reverse greater saphenous vein graft to posterior descending artery, a reverse greater saphenous vein graft to posterior lateral branch of the right coronary artery. Endoscopic vein harvest of his bilateral greater saphenous vein. Epi-aortic ultrasound. Intraoperative transesophageal echocardiogram. Closure of the sternum using Tritium plating system. The patient is sitting up to the bedside chair. No acute distress. He is tolerating his breakfast without complaints of nausea. he reports that he walked in the hallway in the ICU twice yesterday without difficulty. Objective - Vital Signs Vital signs: Vital Signs Temp 97.7 F 06/03/17 16:00 Pulse 91 06/04/17 07:00 Resp 12 06/04/17 07:00 BP 98/51 06/04/17 07:00 Pulse Ox 96 06/04/17 07:00 Intake & Output 06/03/17 06/04/17 06/04/17 18:59 06:59 18:59 Intake Total 1294.675 240 20 Output Total 3500 1325 Balance -2205.325 -1085 20 Weight 133.2 kg 133.2 kg Intake: IV 258 240 20 Lactated Ringers 1,000 ml 240 240 20 @ 20 mls/hr IV .Q24H [facility] Rx#:[id number] pressure bag 18 Intake, IV Titration 36.675 Amount Insulin Regular 100 unit 36.675 In Sodium Chloride 0.9% 100 ml @ Per Protocol IV .Q0M [facility] Rx#:[id number] Oral 1000 Output: Chest Tube Drainage 0 Chest Tube Left Lateral 0 Chest Urine 3500 1325 Other: Voiding Method Bedside Commode Urinal Urinal # Voids 0 0 ABP, PAP, CO, CI - Last Documented Arterial Blood Pressure 139/56 Pulmonary Artery Pressure 31/17 Cardiac Output 7 Cardiac Index 2.8 - Constitutional General appearance: Present: cooperative, morbidly obese, no acute distress - EENT Eyes: Present: PERRLA ENT: Present: hearing grossly normal - Neck Details: no JVD, no lymphadenopathy. - Respiratory Details: essentially clear throughout, diminished to his bilateral bases. Respirations are symmetrical and nonlabored. Oxygen saturation are 93% on 2 L nasal cannula. He is achieving 6106-3789 mL on his incentive spirometry. - Cardiovascular Details: regular rhythm and rate. S1 and S2 present, negative for S3, gallop or murmur. Bedside telemetry showing normal sinus rhythm heart rate 90. Sternum stable. Knee-high HALEY hose and sequential compression devices in place with bilateral lower extremities. Heart hugger is in place and he is demonstrating appropriate use. Atrial ventricular epicardial pacemaker wires present and grounded. No edema present. - Gastrointestinal Gastrointestinal Comment(s): Abdomen is soft, nontender and nondistended. Active bowel sounds all 4 abdominal quadrants. Passing flatus. - Genitourinary Genitourinary Comment(s): Urine output adequate. Clear yellow urine. 650 mL of urine output in the last 8 hours. - Integumentary Integumentary Comment(s): Midline sternal incision clean and dry and well approximated. No drainage noted. Dermabond dressing clean dry and intact. Bilateral lower extremity EVH sites clean dry and well approximated. No drainage noted. - Neurologic Neurologic Comment(s): No focal deficits. Neurologic: Present: CNII-XII intact - Musculoskeletal Musculoskeletal: Present: gait normal, strength equal bilaterally - Psychiatric Psychiatric: Present: A&O x's 3, appropriate affect, intact judgment & insight - Allied health notes Allied health notes reviewed: nursing - Labs CBC & Chem 7: 06/04/17 04:37 06/04/17 04:41 Labs: Abnormal Lab Results - Last 24 Hours (Table) 06/03/17 06/03/17 06/03/17 Range/Units 05:38 09:12 10:11 WBC (3.8-10.6) k/uL RBC (4.30-5.90) m/uL Hgb (13.0-17.5) gm/dL Hct (39.0-53.0) % RDW (11.5-15.5) % Neutrophils # (1.3-7.7) k/uL Sodium (137-145) mmol/L BUN (9-20) mg/dL Glucose (74-99) mg/dL POC Glucose (mg/dL) 203 H 163 H (75-99) mg/dL Hemoglobin A1c 9.7 H (4.2-6.1) % Calcium (8.4-10.2) mg/dL 06/03/17 06/03/17 06/03/17 Range/Units 11:01 12:08 17:22 WBC (3.8-10.6) k/uL RBC (4.30-5.90) m/uL Hgb (13.0-17.5) gm/dL Hct (39.0-53.0) % RDW (11.5-15.5) % Neutrophils # (1.3-7.7) k/uL Sodium (137-145) mmol/L BUN (9-20) mg/dL Glucose (74-99) mg/dL POC Glucose (mg/dL) 150 H 137 H 194 H (75-99) mg/dL Hemoglobin A1c (4.2-6.1) % Calcium (8.4-10.2) mg/dL 06/03/17 06/04/17 06/04/17 Range/Units 20:05 04:37 04:41 WBC 12.1 H (3.8-10.6) k/uL RBC 3.43 L (4.30-5.90) m/uL Hgb 10.3 L (13.0-17.5) gm/dL Hct 32.6 L (39.0-53.0) % RDW 16.0 H (11.5-15.5) % Neutrophils # 9.6 H (1.3-7.7) k/uL Sodium 134 L (137-145) mmol/L BUN 23 H (9-20) mg/dL Glucose 181 H (74-99) mg/dL POC Glucose (mg/dL) 212 H (75-99) mg/dL Hemoglobin A1c (4.2-6.1) % Calcium 8.3 L (8.4-10.2) mg/dL 06/04/17 Range/Units 07:33 WBC (3.8-10.6) k/uL RBC (4.30-5.90) m/uL Hgb (13.0-17.5) gm/dL Hct (39.0-53.0) % RDW (11.5-15.5) % Neutrophils # (1.3-7.7) k/uL Sodium (137-145) mmol/L BUN (9-20) mg/dL Glucose (74-99) mg/dL POC Glucose (mg/dL) 183 H (75-99) mg/dL Hemoglobin A1c (4.2-6.1) % Calcium (8.4-10.2) mg/dL Assessment and Plan (1) Uncontrolled type 2 diabetes mellitus Status: Acute (2) COPD (chronic obstructive pulmonary disease) Status: Acute (3) History of heart artery stent Status: Acute (4) Hyperlipidemia Status: Acute (5) Previous myocardial infarction older than 8 weeks Status: Acute (6) Coronary artery disease Status: Acute (7) Family history of coronary artery disease Status: Acute (8) Hypertension Status: Acute (9) Morbid obesity Status: Acute (10) Tobacco dependence in remission Status: Acute Plan: 1. Continue Plavix, statin, heparin subcu, beta claudette and SHAR inhibitor. Will increase his metoprolol to 75 mg by mouth twice a day. No aspirin secondary to ALLERGY. 2. Pulmonary management per Dr. Christiansen recommendations. 3. Increase activity as tolerated. Physical and occupational therapy are following. 4. GI/DVT prophylaxis. 5. Insulin management per primary care service. 6. Will monitor daily labs, chest x-rays. 7. Continue Lasix 20 mg IV twice a day. 8. He will be transferred to [address] [place] [address] for further rehabilitation and monitoring. 9. More recommendations as patient progresses. Time with Patient: Greater than 30 <Delvis Desai - Last Filed: 06/04/17 12:53> Objective - Vital Signs Vital signs: Vital Signs Temp 98.8 F 06/04/17 12:00 Pulse 84 06/04/17 12:00 Resp 22 06/04/17 12:00 BP 144/69 06/04/17 12:00 Pulse Ox 93 L 06/04/17 12:00 Intake & Output 06/03/17 06/04/17 06/04/17 18:59 06:59 18:59 Intake Total 1294.675 240 790 Output Total 3500 1325 575 Balance -2205.325 -1085 215 Weight 133.2 kg 133.2 kg Intake: IV 258 240 40 0.9NaCl 0 Lactated Ringers 1,000 ml 240 240 40 @ 20 mls/hr IV .Q24H [facility] Rx#:[id number] pressure bag 18 Intake, IV Titration 36.675 Amount Insulin Regular 100 unit 36.675 In Sodium Chloride 0.9% 100 ml @ Per Protocol IV .Q0M [facility] Rx#:[id number] Oral 1000 750 Output: Chest Tube Drainage 0 Chest Tube Left Lateral 0 Chest Urine 3500 1325 575 Other: Voiding Method Bedside Commode Urinal Urinal Urinal # Voids 0 1 ABP, PAP, CO, CI - Last Documented Arterial Blood Pressure 139/56 Pulmonary Artery Pressure / Cardiac Output 7 Cardiac Index 2.8 - Labs CBC & Chem 7: 06/04/17 04:37 06/04/17 04:41 Labs: Abnormal Lab Results - Last 24 Hours (Table) 06/03/17 06/03/17 06/04/17 Range/Units 17:22 20:05 04:37 WBC 12.1 H (3.8-10.6) k/uL RBC 3.43 L (4.30-5.90) m/uL Hgb 10.3 L (13.0-17.5) gm/dL Hct 32.6 L (39.0-53.0) % RDW 16.0 H (11.5-15.5) % Neutrophils # 9.6 H (1.3-7.7) k/uL Sodium (137-145) mmol/L BUN (9-20) mg/dL Glucose (74-99) mg/dL POC Glucose (mg/dL) 194 H 212 H (75-99) mg/dL Calcium (8.4-10.2) mg/dL 06/04/17 06/04/17 06/04/17 Range/Units 04:41 07:33 11:47 WBC (3.8-10.6) k/uL RBC (4.30-5.90) m/uL Hgb (13.0-17.5) gm/dL Hct (39.0-53.0) % RDW (11.5-15.5) % Neutrophils # (1.3-7.7) k/uL Sodium 134 L (137-145) mmol/L BUN 23 H (9-20) mg/dL Glucose 181 H (74-99) mg/dL POC Glucose (mg/dL) 183 H 177 H (75-99) mg/dL Calcium 8.3 L (8.4-10.2) mg/dL Assessment and Plan Plan: The patient was seen and examined. Agree with the above assessment and plan. Overall the patient is improving. He was ambulating outside his room today. His blood pressure is stable on both a beta claudette and SHAR inhibitor. We will continue Lasix for now. We will wean his oxygen. Incentive spirometry has been encouraged. We will remove his temporary pacing wires. He'll be transferred to [facility] care this afternoon.
[2017-06-04] MEDS: ATORVASTATIN 40 MG TAB PO SCH (09:02)
[2017-06-04] MEDS: LISINOPRIL 5 MG TAB PO SCH ×2 (09:03→21:21)
[2017-06-04] MEDS: CLOPIDOGREL 75 MG TAB PO SCH (09:03)
[2017-06-04] MEDS: FUROSEMIDE 10 MG/ML 2 ML VIAL IV SCH ×2 (09:03→21:20)
[2017-06-04] MEDS: HEPARIN SODIUM,PORCINE 5,000 UNIT/ML 1 ML VIAL SQ SCH ×4 (09:04→21:22)
[2017-06-04] MEDS: PANTOPRAZOLE 40 MG/10 ML VIAL IVP SCH (09:04)
[2017-06-04] MEDS: METOPROLOL TARTRATE 25 MG TAB PO SCH ×2 (09:14→21:21)
--- NOTE | 2017-06-04 09:57 | P.PN ---
Subjective Progress Note Date: 06/04/17 67-year-old male patient with established diagnosis of coronary artery disease with previous coronary stent, hypertension, diabetes mellitus type 2, COPD, obesity and a strong family history for CAD, who presented to his ct technician with increased shortness of breath. He had a cardiac catheterization that showed diffuse disease in the LAD with 70% stenosis in the midportion 70% stenosis in the large diagonal branch proximal circumflex occlusion and a heavily calcified right coronary artery with a 80-90% stenosis in the distal RCA. The patient was referred to CT surgery and the patient underwent four- vessel bypass surgery today. Currently is postop. He still intubated on a mechanical ventilator. His sedated with Diprivan. He is an assist-control mode of ventilation with a rate of 12, tidal volume of 700, FiO2 of 100% and a PEEP of 5. The chest x-ray and a blood gas are still pending for now. Meanwhile, hemodynamically the patient is doing well. He is hypertensive and he will be started on Celebrex drip for blood pressure control. His cardiac output is at 8.1 with an index of 3.2. He has mediastinal chest tube and left pleural chest tube. Cardiac rhythm is sinus and he has a backup pacemaker. His blood sugar is at 106. He is currently on insulin drip for blood sugar control. No other significant events . Producing adequate amount of urine output. His peak pressures around 24. As I'm dictating, the blood gases arrived at pH of 7.27 with a pCO2 of 54 and pO2 of 98. I made recommendations to increase the tidal volume to 750 and increase the respiratory rate up to 20. His FiO2 will be gradually wean down as tolerated to maintain a saturation above 92%. On 06/01/2017 the patient is being seen in follow-up. I was unable to wean off this patient from the mechanical ventilator. He became acutely hypoxic and had to increase the PEEP up to 15 and gradually moved his tidal volume down to 550. I kept his peak pressures around 28. Static pressures around 27. FiO2 this morning is down to 40%. The rest of the vent settings include an assist- control at the rate of 20, FiO2 of 40%, PEEP of 15 and tidal volume of 550. The patient is doing well. The patient is sedated and is calm and comfortable currently on 40 mics of the prevent. Chest x-ray from today shows improved aeration of the lungs bilaterally. There is improving and the central vascular congestion. There is also patchy left basilar atelectasis and the chest tubes are in place without evidence of pneumothorax. The patient is stable. The patient is on no pressors and the patient is producing adequate amount of urine output. The mediastinal chest tube has drained 90 mL of suicide on this material overnight and 170 mL since surgery and the left pleural chest tube has drained 30 mL of drainage overnight and 85 mL since surgery. The cardiac index is at 3.1. PA pressure is 42/27. No other significant events overnight otherwise. On 06/02/2017 I'm seeing this patient in follow-up. The patient remains intubated and he is still on a mechanical ventilator. His postop day #2. Noted the patient was having difficulties with oxygenation for that reason the weaning process was delayed. Currently is on 8 of PEEP with a FiO2 of 40% and a tidal volume of 550 with a rate of 20. The morning blood gases showed a pH of 7. 48 and a pCO2 of 35 and pO2 of 68. Based on that the FiO2 was brought up to 50%. Upon my earlier morning assessment, the patient's airway pressure were quite low under reasonable with a pressure of 24. He was pulse oxing 97% on room air. Chest x-ray shows postsurgical changes with atelectasis and lung bases bilaterally. There was no evidence of any pneumothorax and leads tube and the rest of the tubes are all in good location. Based on that I dropped a PEEP down to 5 and we are still monitoring his oxygenation. A possibly be a candidate for further weaning if his oxygenation remains stable. Meanwhile the patient remains sedated on Diprivan at 40 mics. He is calm and comfortable. He is hemodynamically stable. The cardiac output is 5.8 with an index of 2.4. His PA pressures around 34/20. He has adequate urine output. Has no pressors. Sternum stable clean and intact. MARITZA drain is present in the lower extremities bilaterally and there is no active drainage. The output from the chest tube is also minimal. His cardiac rhythm is sinus. On 06/03/2017 the patient is being seen in follow-up. The patient is postop day #3. The patient is extubated. Patient doing extremely well. The patient is using incentive spirometer and the patient is pulling more than 1000. The patient is on no pressors. The patient is hemodynamically stable. The patient has an adequate urine output. He is awake alert and communicating following commands and answering questions. The mediastinal chest tubes have been removed. The patient has a left pleural chest tube and output is minimal at this point. Sternum stable clean and intact. The [place] catheter was removed. Chest x-ray shows postsurgical changes which are essentially some limited atelectatic changes in lung bases bilaterally. No other significant events overnight. The cardiac rhythm remains sinus. MARITZA drains were removed. The epicardial leads are still in place. On 06/04/2017 the patient is being seen in follow-up. The patient is postop day #4. He remains extubated. The patient's chest tubes have been all taken out. He is doing good on his incentive spirometer, following almost 1500. Hemodynamically stable. The patient has been switched to Lantus insulin for blood sugar control in addition to a Humalog sliding scale coverage. He is receiving 40 units of Lantus along with 13 units of Humalog with every meal plus a sliding scale coverage. No other significant events at all of the wounds are healed and the patient will be chest out of the intensive care unit today. Objective - Vital Signs Vital signs: Vital Signs Temp 99.3 F 06/04/17 09:00 Pulse 92 06/04/17 09:00 Resp 20 06/04/17 09:00 BP 112/63 06/04/17 09:00 Pulse Ox 92 L 06/04/17 09:00 Intake & Output 06/03/17 06/04/17 06/04/17 18:59 06:59 18:59 Intake Total 1294.675 240 790 Output Total 3500 1325 200 Balance -2205.325 -1085 590 Weight 133.2 kg 133.2 kg Intake: IV 258 240 40 Lactated Ringers 1,000 ml 240 240 40 @ 20 mls/hr IV .Q24H SANG Rx#:[id number] pressure bag 18 Intake, IV Titration 36.675 Amount Insulin Regular 100 unit 36.675 In Sodium Chloride 0.9% 100 ml @ Per Protocol IV .Q0M SANG Rx#:[id number] Oral 1000 750 Output: Chest Tube Drainage 0 Chest Tube Left Lateral 0 Chest Urine 3500 1325 200 Other: Voiding Method Bedside Commode Urinal Urinal # Voids 0 0 ABP, PAP, CO, CI - Last Documented Arterial Blood Pressure 139/56 Pulmonary Artery Pressure 31/17 Cardiac Output 7 Cardiac Index 2.8 - Exam Gen. appearance, comfortable no distress on 2 oxygen nasal cannula. He is obese.Head exam was generally normal. There was no scleral icterus or corneal arcus. Mucous membranes were moist. Neck is supple. No goiter or neck masses. Lungs sounds are diminished in lung bases bilaterally otherwise clear. Sternum stable clean and intact. Left-sided chest tube is still in place.Cardiac exam revealed the PMI to be normally situated and sized. The rhythm was regular and no extrasystoles were noted during several minutes of auscultation. The first and second heart sounds were normal and physiologic splitting of the second heart sound was noted. There were no murmurs, rubs, clicks, or gallops.Abdominal exam revealed normal bowel sounds. The abdomen was soft, non-tender, and without masses, organomegaly, or appreciable enlargement of the abdominal aorta.Examination of the extremities revealed easily palpable radial, femoral and pedal pulses. There was no cyanosis, clubbing or edema. Surgical wound sites over the lower extremity these are clean and intact and MARITZA drain has been removed.Examination of the skin revealed no evidence of significant rashes, suspicious appearing nevi or other concerning lesions. Neurologically is awake and alert and exam is nonfocal. - Labs CBC & Chem 7: 06/04/17 04:37 06/04/17 04:41 Labs: Abnormal Lab Results - Last 24 Hours (Table) 06/03/17 06/03/17 06/03/17 Range/Units 05:38 10:11 11:01 WBC (3.8-10.6) k/uL RBC (4.30-5.90) m/uL Hgb (13.0-17.5) gm/dL Hct (39.0-53.0) % RDW (11.5-15.5) % Neutrophils # (1.3-7.7) k/uL Sodium (137-145) mmol/L BUN (9-20) mg/dL Glucose (74-99) mg/dL POC Glucose (mg/dL) 163 H 150 H (75-99) mg/dL Hemoglobin A1c 9.7 H (4.2-6.1) % Calcium (8.4-10.2) mg/dL 06/03/17 06/03/17 06/03/17 Range/Units 12:08 17:22 20:05 WBC (3.8-10.6) k/uL RBC (4.30-5.90) m/uL Hgb (13.0-17.5) gm/dL Hct (39.0-53.0) % RDW (11.5-15.5) % Neutrophils # (1.3-7.7) k/uL Sodium (137-145) mmol/L BUN (9-20) mg/dL Glucose (74-99) mg/dL POC Glucose (mg/dL) 137 H 194 H 212 H (75-99) mg/dL Hemoglobin A1c (4.2-6.1) % Calcium (8.4-10.2) mg/dL 06/04/17 06/04/17 06/04/17 Range/Units 04:37 04:41 07:33 WBC 12.1 H (3.8-10.6) k/uL RBC 3.43 L (4.30-5.90) m/uL Hgb 10.3 L (13.0-17.5) gm/dL Hct 32.6 L (39.0-53.0) % RDW 16.0 H (11.5-15.5) % Neutrophils # 9.6 H (1.3-7.7) k/uL Sodium 134 L (137-145) mmol/L BUN 23 H (9-20) mg/dL Glucose 181 H (74-99) mg/dL POC Glucose (mg/dL) 183 H (75-99) mg/dL Hemoglobin A1c (4.2-6.1) % Calcium 8.3 L (8.4-10.2) mg/dL Assessment and Plan Plan: Assessment 1 multivessel coronary artery disease and the patient is post CABG with 4 vessel bypass involving DAY to LAD and saphenous vein graft to PDA, PLB and diagonal. The patient. The patient is postop day #4 2 post thoracotomy. The patient was extubated yesterday without any major difficulties and currently he is showing some limited atelectatic changes in lung bases. All of the chest tubes have been removed. 3 diabetes mellitus , currently on this insulin for blood sugar control in addition to a NovoLog with meal and ascites scale coverage. Blood sugars under better control for now. 4 obesity 5 COPD 6 hypertension 7 hyperlipidemia Plan She is doing extremely well. He has recovered nicely. He'll be moved to a telemetry unit today. Continue monitoring the blood sugar. Continue monitoring the hemodynamics. Continue using incentive spirometer. Pulmonary status is stable. Will follow.
[2017-06-04 11:49] LABS: Glucose,Whole Blood 177 mg/dL (75-99)
--- NOTE | 2017-06-04 13:32 | P.PN ---
Subjective Progress Note Date: 06/04/17 This is a 67-year-old male patient of Dr David Palomares with a past medical history of coronary artery disease with previous coronary stent, hypertension, diabetes mellitus type 2, COPD, obesity and a strong family history for CAD, who presented to his home therapy clinician with increased shortness of breath. Patient was out for a bike ride 3 blocks with his and developed severe chest pain with previous episodes of chest pain. He contacted his home therapy clinician, Dr. Sarmiento. He had a cardiac catheterization that showed diffuse disease in the LAD with 70% stenosis in the midportion 70% stenosis in the large diagonal branch proximal circumflex occlusion and a heavily calcified right coronary artery with a 80-90% stenosis in the distal RCA. The patient was referred to CT surgery and the patient underwent four-vessel bypass surgery completed yesterday. He remains intubated and on mechanical ventilation. His was at the bedside and the patient is being checked for possible extubation over the next few hours. 06/02: Patient remains in the intensive care unit and was successfully extubated at 11 AM today. Hemoglobin is stable at 11.4. He states his chest is sore. Breathing is stable at this time. Chest tubes, Ly catheter, MARITZA drains, pacemaker wires in place. Patient has started using incentive spirometry. 06/03: Patient remains in intensive care unit. He is sitting up in a chair this morning. He is scheduled to have left pleural chest tube and cordis removed today. We will plan to transition him off insulin drip and onto Lantus and scheduled Humalog and scale. He denies having any nausea or vomiting. His diet is being advanced. He has passed gas but has not had a bowel movement. 06/04: Patient remains in the intensive care unit. Chest tubes are all out. He is scheduled for transfer out of the intensive care unit today. Blood sugars are on the high side for which Lantus will be increased to 44 units. Objective - Vital Signs Vital signs: Vital Signs Temp 99.3 F 06/04/17 09:00 Pulse 92 06/04/17 09:00 Resp 20 06/04/17 09:00 BP 112/63 06/04/17 09:00 Pulse Ox 92 L 06/04/17 09:00 Intake & Output 06/03/17 06/04/17 06/04/17 18:59 06:59 18:59 Intake Total 1294.675 240 790 Output Total 3500 1325 200 Balance -2205.325 -1085 590 Weight 133.2 kg 133.2 kg Intake: IV 258 240 40 Lactated Ringers 1,000 ml 240 240 40 @ 20 mls/hr IV .Q24H [facility] Rx#:[id number] pressure bag 18 Intake, IV Titration 36.675 Amount Insulin Regular 100 unit 36.675 In Sodium Chloride 0.9% 100 ml @ Per Protocol IV .Q0M [facility] Rx#:[id number] Oral 1000 750 Output: Chest Tube Drainage 0 Chest Tube Left Lateral 0 Chest Urine 3500 1325 200 Other: Voiding Method Bedside Commode Urinal Urinal # Voids 0 0 ABP, PAP, CO, CI - Last Documented Arterial Blood Pressure 139/56 Pulmonary Artery Pressure 31/17 Cardiac Output 7 Cardiac Index 2.8 - Exam General appearance: average body habitus, no distress - EENT Eyes: anicteric sclerae, normal appearance ENT: NA/AT, no thrush Ears: bilateral: normal - Neck Neck: no lymphadenopathy Carotids: bilateral: upstroke delayed Thyroid: bilateral: normal size - Respiratory Respiratory: bilateral: diminished, rhonchi, negative: dullness, rales, wheezing , prolonged expiration - Cardiovascular Rhythm: regular Heart sounds: normal: S1, S2 Abnormal Heart Sounds: systolic murmur, rub, S3 Gallop, no click - Gastrointestinal General gastrointestinal: normal bowel sounds, soft, no splenomegaly, no tenderness, no umbilical hernia, no ventral hernia - Integumentary Integumentary: normal, normal turgor - Psychiatric Psychiatric: A&O x's 3, appropriate affect, intact judgment & insight - Labs CBC & Chem 7: 06/04/17 04:37 06/04/17 04:41 Labs: Abnormal Lab Results - Last 24 Hours (Table) 06/03/17 06/03/17 06/03/17 Range/Units 05:38 10:11 11:01 WBC (3.8-10.6) k/uL RBC (4.30-5.90) m/uL Hgb (13.0-17.5) gm/dL Hct (39.0-53.0) % RDW (11.5-15.5) % Neutrophils # (1.3-7.7) k/uL Sodium (137-145) mmol/L BUN (9-20) mg/dL Glucose (74-99) mg/dL POC Glucose (mg/dL) 163 H 150 H (75-99) mg/dL Hemoglobin A1c 9.7 H (4.2-6.1) % Calcium (8.4-10.2) mg/dL 06/03/17 06/03/17 06/03/17 Range/Units 12:08 17:22 20:05 WBC (3.8-10.6) k/uL RBC (4.30-5.90) m/uL Hgb (13.0-17.5) gm/dL Hct (39.0-53.0) % RDW (11.5-15.5) % Neutrophils # (1.3-7.7) k/uL Sodium (137-145) mmol/L BUN (9-20) mg/dL Glucose (74-99) mg/dL POC Glucose (mg/dL) 137 H 194 H 212 H (75-99) mg/dL Hemoglobin A1c (4.2-6.1) % Calcium (8.4-10.2) mg/dL 06/04/17 06/04/17 06/04/17 Range/Units 04:37 04:41 07:33 WBC 12.1 H (3.8-10.6) k/uL RBC 3.43 L (4.30-5.90) m/uL Hgb 10.3 L (13.0-17.5) gm/dL Hct 32.6 L (39.0-53.0) % RDW 16.0 H (11.5-15.5) % Neutrophils # 9.6 H (1.3-7.7) k/uL Sodium 134 L (137-145) mmol/L BUN 23 H (9-20) mg/dL Glucose 181 H (74-99) mg/dL POC Glucose (mg/dL) 183 H (75-99) mg/dL Hemoglobin A1c (4.2-6.1) % Calcium 8.3 L (8.4-10.2) mg/dL Assessment and Plan Plan: 1. Acute hypoxic vent dependent respiratory failure post CABG 4 (unexpected due to underlying COPD). Patient has been successfully extubated. Continue current plan per Dr. Christiansen. 2. Coronary artery disease status post CABG with 4 vessel bypass involving DAY to LAD and saphenous vein graft to PDA, PLV and diagonal. Continue patient on Lipitor 40 mg, Lasix 20 mg IV every 12 hours, Plavix 75 mg daily, Lopressor 75 mg twice daily. 3. History of CAD with prior stent in 2012. Maintain the patient on Lipitor 40 mg a day as well as metoprolol 50 mg twice every day. 3. Diabetes mellitus type 2. Currently on insulin drip and will switch him over to Lantus 40 units at bedtime along with Humalog 13 units with meals and scale. 4. Morbid obesity. Patient would need to go into the a full weight loss program without the need for any surgical intervention. 5. History of COPD without exacerbation. Continue aggressive pulmonary toileting with DuoNeb. 6. Hypertension hypertensive cardio vascular disease. Continue patient on metoprolol. 7. Hyperlipidemia. Continue lipitor increased to 40mg daily. Discharge plan: PT has recommended home with homecare Impression and plan of care have been directed as dictated by the signing physician. Ewelina Hernandez nurse practitioner acting as scribe for signing physician.
[2017-06-04 16:53] LABS: Glucose,Whole Blood 172 mg/dL (75-99)
--- NOTE | 2017-06-04 17:02 | PN ---
PROGRESS NOTE This patient's medical chart was reviewed. The patient is status post coronary artery bypass surgery. He is remaining hemodynamically stable. Denies any chest pain. Denies any respiratory distress. The patient remains in normal sinus rhythm. PHYSICAL EXAMINATION: Blood pressure is 100/51 mmHg. Heart rate is 90 per minute. Pulse oximeter is 96%. HEART: First and second heart sounds are normal. Lungs are clinically clear to auscultation and percussion. IMPRESSION: Patient remains stable cardiac-torres. We will continue the current medications. MMODL / IJN: [id number] /
[2017-06-04 21:18] LABS: Glucose,Whole Blood 206 mg/dL (75-99)
[2017-06-04] MEDS: INSULIN GLARGINE 100 UNIT/ML 10 ML VIAL SQ SCH (21:27)
[2017-06-04] MEDS: SENNOSIDES-DOCUSATE SODIUM 1 EACH TAB PO SCH (21:27)
[2017-06-05] MEDS: HYDROcodone/APAP 5-325MG 1 EACH TAB PO PRN ×6 (01:46→23:31)
[2017-06-05 02:35] LABS: Glucose,Whole Blood 214 mg/dL (75-99)
[2017-06-05 05:44] LABS: Glucose,Whole Blood 179 mg/dL (75-99)
[2017-06-05 06:26] LABS: Basophils % (A) 0 %; CH 30.3; CHCM 32.2; Eosinophils # (A) 0.3 k/uL (0-0.7); Eosinophils % (A) 3 %; HCT 32.6 % (39.0-53.0); HDW 2.97; Luc # (Auto) 0.21; Luc % (Auto) 2; Lymphocytes # (A) 1.5 k/uL (1.0-4.8); Lymphocytes % (A) 15 %; MCH 28.9 pg (25.0-35.0); MCHC 30.5 g/dL (31.0-37.0); MCV 94.7 fL (80.0-100.0); Mean Platelet Volume 7.7; Monocytes # (A) 0.5 k/uL (0-1.0); Monocytes % (A) 5 %; Neutrophils # (A) 7.8 k/uL (1.3-7.7); Neutrophils % (A) 76 %; RBC 3.45 m/uL (4.30-5.90); RDW 15.8 % (11.5-15.5); WBC 10.3 k/uL (3.8-10.6); WBC (Perox) 10.85
[2017-06-05 06:41] LABS: ALT 41 U/L (21-72); AST 26 U/L (17-59); Alkaline Phosphatase 62 U/L (38-126); Anion Gap 8 mmol/L; Blood Urea Nitrogen 25 mg/dL (9-20); Calcium 8.6 mg/dL (8.4-10.2); Carbon Dioxide 29 mmol/L (22-30); Chloride 97 mmol/L (98-107); Glucose 163 mg/dL (74-99); Non-African American GFR(MDRD) >60 (>60 ml/min/1.73 sqM); Phosphorus 3.4 mg/dL (2.5-4.5); Potassium 4.2 mmol/L (3.5-5.1); Sodium 134 mmol/L (137-145); Total Bilirubin 0.5 mg/dL (0.2-1.3); Total Protein 5.8 g/dL (6.3-8.2)
--- NOTE | 2017-06-05 06:43 | XR ---
EXAMINATION TYPE: XR chest 2V DATE OF EXAM: 06/05/2017 HISTORY: post op CABG. REFERENCE: Previous study dated 06/03/2017. FINDINGS: There has been a midline sternotomy. Heart size upper limits of normal. There is left basilar airspace disease. I suspect a small left effusion. IMPRESSION: CONTINUING POSTOPERATIVE CHANGE.
[2017-06-05] MEDS: INSULIN LISPRO (humaLOG) 300 UNIT/3 ML VIAL SQ SCH ×7 (07:09→21:56)
[2017-06-05] MEDS: FUROSEMIDE 10 MG/ML 2 ML VIAL IV SCH ×2 (08:30→21:55)
[2017-06-05] MEDS: HEPARIN SODIUM,PORCINE 5,000 UNIT/ML 1 ML VIAL SQ SCH ×3 (08:30→21:56)
[2017-06-05] MEDS: PANTOPRAZOLE 40 MG/10 ML VIAL IVP SCH (08:30)
[2017-06-05] MEDS: ATORVASTATIN 40 MG TAB PO SCH (08:30)
[2017-06-05] MEDS: LISINOPRIL 5 MG TAB PO SCH ×2 (08:30→21:55)
[2017-06-05] MEDS: CLOPIDOGREL 75 MG TAB PO SCH (08:30)
[2017-06-05] MEDS: METOPROLOL TARTRATE 50 MG TAB PO SCH ×2 (08:35→21:55)
--- NOTE | 2017-06-05 09:33 | P.PN ---
Subjective Progress Note Date: 06/05/17 Principal diagnosis: Symptomatic multivessel coronary artery disease. History of previous myocardial infarction, history of coronary artery disease with stent placement in 2012. Hypertension. Hyperlipidemia. Uncontrolled type 2 diabetes mellitus with admission hemoglobin A1c 10.1%. COPD. Remote smoking history. Morbid obesity. Strong family history of coronary artery disease. Osteoarthritis. POD #5 coronary artery bypass grafting 4 vessels, left internal mammary artery to left anterior descending artery, a reverse greater saphenous vein graft to diagonal artery, a reverse greater saphenous vein graft to posterior descending artery, a reverse greater saphenous vein graft to posterior lateral branch of the right coronary artery. Endoscopic vein harvest of his bilateral greater saphenous vein. Epi-aortic ultrasound. Intraoperative transesophageal echocardiogram. Closure of the sternum using Tritium plating system. The patient is sitting up to the bedside chair. No acute distress. He is tolerating his breakfast without complaints. He was transferred to [address] [place] [address] yesterday and 2016. He will get his first day shower today. Objective - Vital Signs Vital signs: Vital Signs Temp 98.3 F 06/05/17 03:09 Pulse 87 06/05/17 03:09 Resp 18 06/05/17 03:09 BP 147/60 06/05/17 03:09 Pulse Ox 94 L 06/05/17 03:09 Intake & Output 06/04/17 06/05/17 06/05/17 18:59 06:59 18:59 Intake Total 1410 20 Output Total 1350 1500 300 Balance 60 -1480 -300 Weight 133.2 kg Intake: IV 60 20 0.9NaCl 0 20 Lactated Ringers 1,000 ml 60 @ 20 mls/hr IV .Q24H [facility] Rx#:[id number] Oral 1350 Output: Urine 1350 1500 300 Other: Voiding Method Urinal # Voids 1 # Bowel Movements 0 ABP, PAP, CO, CI - Last Documented Arterial Blood Pressure 139/56 Pulmonary Artery Pressure 31/17 Cardiac Output 7 Cardiac Index 2.8 - Constitutional General appearance: Present: cooperative, morbidly obese, no acute distress - EENT Eyes: Present: PERRLA ENT: Present: hearing grossly normal - Neck Details: No JVD, no lymphadenopathy. - Respiratory Details: Lung sounds essentially clear to his upper lobes, few scattered crackles to his bilateral bases. Respirations are symmetrical and nonlabored. He is achieving 1500 mL on his incentive spirometry. Oxygen saturations are 94% on 2 L nasal cannula. Productive cough with thin white sputum. - Cardiovascular Details: Regular rhythm and rate. S1 and S2 present, negative for S3, gallop or murmur. Sternum is stable. Heart hugger in place and isn't using the heart hugger appropriately. Remote telemetry showing normal sinus rhythm heart rate 82. Knee-high HALEY hose and sequential compression devices in place to his bilateral lower extremities. No edema present. - Gastrointestinal Gastrointestinal Comment(s): Abdomen is soft, nontender and nondistended. Active bowel sounds all 4 abdominal quadrants. He is tolerating oral intake. - Genitourinary Genitourinary Comment(s): Adequate urine output, 600 mL output last 8 hours. Clear yellow urine. - Integumentary Integumentary Comment(s): Midline sternal incision clean dry and well approximated. No drainage noted. Dermabond dressing clean dry and intact. Bilateral lower extremity EVH sites clean dry and well approximated. No drainage noted. - Neurologic Neurologic Comment(s): No focal deficits. Neurologic: Present: CNII-XII intact - Musculoskeletal Musculoskeletal: Present: gait normal, strength equal bilaterally - Psychiatric Psychiatric: Present: A&O x's 3, appropriate affect, intact judgment & insight - Allied health notes Allied health notes reviewed: nursing - Labs CBC & Chem 7: 06/05/17 05:24 06/05/17 05:24 Labs: Abnormal Lab Results - Last 24 Hours (Table) 06/04/17 06/04/17 06/04/17 Range/Units 11:47 16:51 21:17 RBC (4.30-5.90) m/uL Hgb (13.0-17.5) gm/dL Hct (39.0-53.0) % MCHC (31.0-37.0) g/dL RDW (11.5-15.5) % Neutrophils # (1.3-7.7) k/uL Sodium (137-145) mmol/L Chloride (98-107) mmol/L BUN (9-20) mg/dL Glucose (74-99) mg/dL POC Glucose (mg/dL) 177 H 172 H 206 H (75-99) mg/dL Total Protein (6.3-8.2) g/dL Albumin (3.5-5.0) g/dL 06/05/17 06/05/17 06/05/17 Range/Units 02:22 05:24 05:24 RBC 3.45 L (4.30-5.90) m/uL Hgb 10.0 L (13.0-17.5) gm/dL Hct 32.6 L (39.0-53.0) % MCHC 30.5 L (31.0-37.0) g/dL RDW 15.8 H (11.5-15.5) % Neutrophils # 7.8 H (1.3-7.7) k/uL Sodium 134 L (137-145) mmol/L Chloride 97 L (98-107) mmol/L BUN 25 H (9-20) mg/dL Glucose 163 H (74-99) mg/dL POC Glucose (mg/dL) 214 H (75-99) mg/dL Total Protein 5.8 L (6.3-8.2) g/dL Albumin 2.7 L (3.5-5.0) g/dL 06/05/17 Range/Units 05:42 RBC (4.30-5.90) m/uL Hgb (13.0-17.5) gm/dL Hct (39.0-53.0) % MCHC (31.0-37.0) g/dL RDW (11.5-15.5) % Neutrophils # (1.3-7.7) k/uL Sodium (137-145) mmol/L Chloride (98-107) mmol/L BUN (9-20) mg/dL Glucose (74-99) mg/dL POC Glucose (mg/dL) 179 H (75-99) mg/dL Total Protein (6.3-8.2) g/dL Albumin (3.5-5.0) g/dL - Imaging and Cardiology Chest x-ray: report reviewed, image reviewed Assessment and Plan (1) Uncontrolled type 2 diabetes mellitus Status: Acute (2) COPD (chronic obstructive pulmonary disease) Status: Acute (3) History of heart artery stent Status: Acute (4) Hyperlipidemia Status: Acute (5) Previous myocardial infarction older than 8 weeks Status: Acute (6) Coronary artery disease Status: Acute (7) Family history of coronary artery disease Status: Acute (8) Hypertension Status: Acute (9) Morbid obesity Status: Acute (10) Tobacco dependence in remission Status: Acute Plan: 1. Continue Plavix, statin, heparin subcu, beta claudette and SHAR inhibitor. Will increase his metoprolol to 100 mg by mouth twice a day. No aspirin secondary to ALLERGY. 2. Pulmonary management per Dr. Christiansen recommendations. 3. Increase activity as tolerated. Physical and occupational therapy are following. 4. GI/DVT prophylaxis. 5. Insulin management per primary care service. 6. Will monitor daily labs, chest x-rays. 7. Continue Lasix 20 mg IV twice a day. 8. He will get up to the shower today for his first postoperative shower with instructions given on incision care. 9. More recommendations as patient progresses. Time with Patient: Greater than 30
--- NOTE | 2017-06-05 10:39 | P.PN ---
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 He had a cardiac catheterization that showed diffuse disease in the LAD with 70% stenosis in the midportion 70% stenosis in the large diagonal branch proximal circumflex occlusion and a heavily calcified right coronary artery with a 80-90% stenosis in the distal RCA. The patient was referred to CT surgery and the patient underwent four- vessel bypass surgery today. Currently is postop. He still intubated on a mechanical ventilator. His sedated with Diprivan. He is an assist-control mode of ventilation with a rate of 12, tidal volume of 700, FiO2 of 100% and a PEEP of 5. The chest x-ray and a blood gas are still pending for now. Meanwhile, hemodynamically the patient is doing well. He is hypertensive and he will be started on Celebrex drip for blood pressure control. His cardiac output is at 8.1 with an index of 3.2. He has mediastinal chest tube and left pleural chest tube. Cardiac rhythm is sinus and he has a backup pacemaker. His blood sugar is at 106. He is currently on insulin drip for blood sugar control. No other significant events . Producing adequate amount of urine output. His peak pressures around 24. As I'm dictating, the blood gases arrived at pH of 7.27 with a pCO2 of 54 and pO2 of 98. I made recommendations to increase the tidal volume to 750 and increase the respiratory rate up to 20. His FiO2 will be gradually wean down as tolerated to maintain a saturation above 92%. On 06/01/2017 the patient is being seen in follow-up. I was unable to wean off this patient from the mechanical ventilator. He became acutely hypoxic and had to increase the PEEP up to 15 and gradually moved his tidal volume down to 550. I kept his peak pressures around 28. Static pressures around 27. FiO2 this morning is down to 40%. The rest of the vent settings include an assist- control at the rate of 20, FiO2 of 40%, PEEP of 15 and tidal volume of 550. The patient is doing well. The patient is sedated and is calm and comfortable currently on 40 mics of the prevent. Chest x-ray from today shows improved aeration of the lungs bilaterally. There is improving and the central vascular congestion. There is also patchy left basilar atelectasis and the chest tubes are in place without evidence of pneumothorax. The patient is stable. The patient is on no pressors and the patient is producing adequate amount of urine output. The mediastinal chest tube has drained 90 mL of suicide on this material overnight and 170 mL since surgery and the left pleural chest tube has drained 30 mL of drainage overnight and 85 mL since surgery. The cardiac index is at 3.1. PA pressure is 42/27. No other significant events overnight otherwise. On 06/02/2017 I'm seeing this patient in follow-up. The patient remains intubated and he is still on a mechanical ventilator. His postop day #2. Noted the patient was having difficulties with oxygenation for that reason the weaning process was delayed. Currently is on 8 of PEEP with a FiO2 of 40% and a tidal volume of 550 with a rate of 20. The morning blood gases showed a pH of 7. 48 and a pCO2 of 35 and pO2 of 68. Based on that the FiO2 was brought up to 50%. Upon my earlier morning assessment, the patient's airway pressure were quite low under reasonable with a pressure of 24. He was pulse oxing 97% on room air. Chest x-ray shows postsurgical changes with atelectasis and lung bases bilaterally. There was no evidence of any pneumothorax and leads tube and the rest of the tubes are all in good location. Based on that I dropped a PEEP down to 5 and we are still monitoring his oxygenation. A possibly be a candidate for further weaning if his oxygenation remains stable. Meanwhile the patient remains sedated on Diprivan at 40 mics. He is calm and comfortable. He is hemodynamically stable. The cardiac output is 5.8 with an index of 2.4. His PA pressures around 34/20. He has adequate urine output. Has no pressors. Sternum stable clean and intact. MARITZA drain is present in the lower extremities bilaterally and there is no active drainage. The output from the chest tube is also minimal. His cardiac rhythm is sinus. On 06/03/2017 the patient is being seen in follow-up. The patient is postop day #3. The patient is extubated. Patient doing extremely well. The patient is using incentive spirometer and the patient is pulling more than 1000. The patient is on no pressors. The patient is hemodynamically stable. The patient has an adequate urine output. He is awake alert and communicating following commands and answering questions. The mediastinal chest tubes have been removed. The patient has a left pleural chest tube and output is minimal at this point. Sternum stable clean and intact. The [place] catheter was removed. Chest x-ray shows postsurgical changes which are essentially some limited atelectatic changes in lung bases bilaterally. No other significant events overnight. The cardiac rhythm remains sinus. MARITZA drains were removed. The epicardial leads are still in place. On 06/04/2017 the patient is being seen in follow-up. The patient is postop day #4. He remains extubated. The patient's chest tubes have been all taken out. He is doing good on his incentive spirometer, following almost 1500. Hemodynamically stable. The patient has been switched to Lantus insulin for blood sugar control in addition to a Humalog sliding scale coverage. He is receiving 40 units of Lantus along with 13 units of Humalog with every meal plus a sliding scale coverage. No other significant events at all of the wounds are healed and the patient will be chest out of the intensive care unit today. On 06/05/2017 the patient is being seen on the medical floor. The patient is doing well without any specific complaints. He is ambulating. Sternum stable clean and intact. No drainage from the wounds. No chest pain. No respiratory difficulties. Tolerating diet and he had a bowel movement this morning. He is postop day #5. His recovering reasonably well. Blood work and the rest of the electrodes are all within normal limits. The chest x-ray from today shows postoperative changes with some left basilar airspace disease/small effusion. The heart size in the upper limits of normal. Objective - Vital Signs Vital signs: Vital Signs Temp 97.6 F 06/05/17 08:00 Pulse 91 06/05/17 08:00 Resp 19 06/05/17 08:00 BP 130/60 06/05/17 08:00 Pulse Ox 97 06/05/17 08:00 Intake & Output 06/04/17 06/05/17 06/05/17 18:59 06:59 18:59 Intake Total 1410 20 Output Total 1350 1500 300 Balance 60 -1480 -300 Weight 133.2 kg Intake: IV 60 20 0.9NaCl 0 20 Lactated Ringers 1,000 ml 60 @ 20 mls/hr IV .Q24H SANG Rx#:[id number] Oral 1350 Output: Urine 1350 1500 300 Other: Voiding Method Urinal # Voids 1 # Bowel Movements 0 ABP, PAP, CO, CI - Last Documented Arterial Blood Pressure 139/56 Pulmonary Artery Pressure 31/17 Cardiac Output 7 Cardiac Index 2.8 - Exam Gen. appearance, comfortable no distress on 2 oxygen nasal cannula. He is obese.Head exam was generally normal. There was no scleral icterus or corneal arcus. Mucous membranes were moist. Neck is supple. No goiter or neck masses. Lungs sounds are diminished in lung bases bilaterally otherwise clear. Sternum stable clean and intact. Left-sided chest tube is still in place.Cardiac exam revealed the PMI to be normally situated and sized. The rhythm was regular and no extrasystoles were noted during several minutes of auscultation. The first and second heart sounds were normal and physiologic splitting of the second heart sound was noted. There were no murmurs, rubs, clicks, or gallops.Abdominal exam revealed normal bowel sounds. The abdomen was soft, non-tender, and without masses, organomegaly, or appreciable enlargement of the abdominal aorta.Examination of the extremities revealed easily palpable radial, femoral and pedal pulses. There was no cyanosis, clubbing or edema. Surgical wound sites over the lower extremity these are clean and intact and MARITZA drain has been removed.Examination of the skin revealed no evidence of significant rashes, suspicious appearing nevi or other concerning lesions. Neurologically is awake and alert and exam is nonfocal. - Labs CBC & Chem 7: 06/05/17 05:24 06/05/17 05:24 Labs: Abnormal Lab Results - Last 24 Hours (Table) 06/04/17 06/04/17 06/04/17 Range/Units 11:47 16:51 21:17 RBC (4.30-5.90) m/uL Hgb (13.0-17.5) gm/dL Hct (39.0-53.0) % MCHC (31.0-37.0) g/dL RDW (11.5-15.5) % Neutrophils # (1.3-7.7) k/uL Sodium (137-145) mmol/L Chloride (98-107) mmol/L BUN (9-20) mg/dL Glucose (74-99) mg/dL POC Glucose (mg/dL) 177 H 172 H 206 H (75-99) mg/dL Total Protein (6.3-8.2) g/dL Albumin (3.5-5.0) g/dL 06/05/17 06/05/17 06/05/17 Range/Units 02:22 05:24 05:24 RBC 3.45 L (4.30-5.90) m/uL Hgb 10.0 L (13.0-17.5) gm/dL Hct 32.6 L (39.0-53.0) % MCHC 30.5 L (31.0-37.0) g/dL RDW 15.8 H (11.5-15.5) % Neutrophils # 7.8 H (1.3-7.7) k/uL Sodium 134 L (137-145) mmol/L Chloride 97 L (98-107) mmol/L BUN 25 H (9-20) mg/dL Glucose 163 H (74-99) mg/dL POC Glucose (mg/dL) 214 H (75-99) mg/dL Total Protein 5.8 L (6.3-8.2) g/dL Albumin 2.7 L (3.5-5.0) g/dL 06/05/17 Range/Units 05:42 RBC (4.30-5.90) m/uL Hgb (13.0-17.5) gm/dL Hct (39.0-53.0) % MCHC (31.0-37.0) g/dL RDW (11.5-15.5) % Neutrophils # (1.3-7.7) k/uL Sodium (137-145) mmol/L Chloride (98-107) mmol/L BUN (9-20) mg/dL Glucose (74-99) mg/dL POC Glucose (mg/dL) 179 H (75-99) mg/dL Total Protein (6.3-8.2) g/dL Albumin (3.5-5.0) g/dL Assessment and Plan Plan: Assessment 1 multivessel coronary artery disease and the patient is post CABG with 4 vessel bypass involving DAY to LAD and saphenous vein graft to PDA, PLB and diagonal. The patient. The patient is postop day #5 2 post thoracotomy. The patient remains extubated and he has some limited postoperative atelectatic changes and left lung base. For the most part is actually taking well. No other significant events overnight. He is ambulating. He is recovering reasonably well.. 3 diabetes mellitus , currently on this insulin for blood sugar control in addition to a NovoLog with meal and ascites scale coverage. Blood sugars under better control for now. 4 obesity 5 COPD 6 hypertension 7 hyperlipidemia Plan She is doing extremely well. The patient has no new complaints. Continue ambulating. Routine postoperative care. We'll continue to follow. Encouraged use of incentive spirometer.
[2017-06-05 11:43] LABS: Glucose,Whole Blood 222 mg/dL (75-99)
--- NOTE | 2017-06-05 11:51 | PN ---
PROGRESS NOTE INTERVAL HISTORY: Patient continues to be hemodynamically stable. No major events reported overnight. The patient currently is constipated and trying to have bowel movement; stated that he would rather wait before he gets an enema. Patient had no events overnight. PHYSICAL EXAMINATION: VITAL SIGNS: 99.3, 91, 20, 127/86, and saturation is 91% on 2 L nasal cannula. LUNGS: Diminished bilaterally. HEART: Normal S1, S2. ABDOMEN: Soft. No tenderness. Bowel sounds positive, all quadrants. PSYCH: Alert, oriented x3. SKIN: No new rash. IMAGING AND LABS: CBC revealed stable hemoglobin at 10.0, platelets within acceptable range. Chemistry showed mild hyponatremia, and glucose has been fluctuating between 163 and 206. Chest x-ray showed post-surgical changes. ASSESSMENT AND PLAN: 1. Status post coronary artery bypass grafting x4. Will continue supportive care. Continue wound care. Follow up with surgery recommendations. Patient extubated successfully and currently continues to use incentive spirometer. 2. Coronary artery disease. We will continue cardioprotective medication. Patient seems to be stable at this point. 3. Diabetes, type 2. Fair control. We will continue with current regimen. Goal is less than 180 during this hospital stay. 4. Chronic obstructive pulmonary disease; seems to be compensated. Will continue breathing treatment as needed. 5. Hypertension, under fair control. 6. Hyperlipidemia. Continue statin. 7. Debility. Will have PT/OT evaluate patient prior to discharge. MMLARON / TIEN: [id number] /
--- NOTE | 2017-06-05 12:47 | P.PN ---
Subjective Progress Note Date: 06/05/17 Principal diagnosis: Status post CABG This is a pleasant 67-year-old gentleman who is status post coronary artery bypass grafting surgery, he also has history of hypertension, diabetes, COPD, obesity, strong family history of coronary artery disease. He was seen and examined this morning on the telemetry unit, continues to be in normal sinus rhythm. He is sitting up in the chair, appetite is good, reaching 12- 1500 on his incentive spirometry. Hemoglobin 10.0, potassium 4.2, BUN 25, creatinine 0.8. Objective - Vital Signs Vital signs: Vital Signs Temp 97.6 F 06/05/17 08:00 Pulse 91 06/05/17 08:00 Resp 19 06/05/17 08:00 BP 130/60 06/05/17 08:00 Pulse Ox 97 06/05/17 08:00 Intake & Output 06/04/17 06/05/17 06/05/17 18:59 06:59 18:59 Intake Total 1410 20 480 Output Total 1350 1500 1150 Balance 60 -1480 -670 Weight 133.2 kg Intake: IV 60 20 0.9NaCl 0 20 Lactated Ringers 1,000 ml 60 @ 20 mls/hr IV .Q24H SANG Rx#:[id number] Oral 1350 480 Output: Urine 1350 1500 1150 Other: Voiding Method Urinal # Voids 1 # Bowel Movements 0 ABP, PAP, CO, CI - Last Documented Arterial Blood Pressure 139/56 Pulmonary Artery Pressure 31/17 Cardiac Output 7 Cardiac Index 2.8 - Exam PHYSICAL EXAMINATION: HEENT: Head is atraumatic, normocephalic. Pupils equal, round. Neck is supple. There is no elevated jugular venous pressure. HEART EXAMINATION: Heart S1, S2 normal. No murmur or gallop heard. CHEST EXAMINATION: Lungs are clear to auscultation and precussion. No chest wall tenderness is noted on palpation or with deep breathing. Heart hugger in place ABDOMEN: Soft, nontender. Bowel sounds are heard. No organomegaly noted. EXTREMITIES: 2+ peripheral pulses with no evidence of peripheral edema and no calf tenderness noted. NEUROLOGIC patient is awake, alert and oriented -3. . - Labs CBC & Chem 7: 06/05/17 05:24 06/05/17 05:24 Labs: Abnormal Lab Results - Last 24 Hours (Table) 06/04/17 06/04/17 06/05/17 Range/Units 16:51 21:17 02:22 RBC (4.30-5.90) m/uL Hgb (13.0-17.5) gm/dL Hct (39.0-53.0) % MCHC (31.0-37.0) g/dL RDW (11.5-15.5) % Neutrophils # (1.3-7.7) k/uL Sodium (137-145) mmol/L Chloride (98-107) mmol/L BUN (9-20) mg/dL Glucose (74-99) mg/dL POC Glucose (mg/dL) 172 H 206 H 214 H (75-99) mg/dL Total Protein (6.3-8.2) g/dL Albumin (3.5-5.0) g/dL 06/05/17 06/05/17 06/05/17 Range/Units 05:24 05:24 05:42 RBC 3.45 L (4.30-5.90) m/uL Hgb 10.0 L (13.0-17.5) gm/dL Hct 32.6 L (39.0-53.0) % MCHC 30.5 L (31.0-37.0) g/dL RDW 15.8 H (11.5-15.5) % Neutrophils # 7.8 H (1.3-7.7) k/uL Sodium 134 L (137-145) mmol/L Chloride 97 L (98-107) mmol/L BUN 25 H (9-20) mg/dL Glucose 163 H (74-99) mg/dL POC Glucose (mg/dL) 179 H (75-99) mg/dL Total Protein 5.8 L (6.3-8.2) g/dL Albumin 2.7 L (3.5-5.0) g/dL 06/05/17 Range/Units 11:36 RBC (4.30-5.90) m/uL Hgb (13.0-17.5) gm/dL Hct (39.0-53.0) % MCHC (31.0-37.0) g/dL RDW (11.5-15.5) % Neutrophils # (1.3-7.7) k/uL Sodium (137-145) mmol/L Chloride (98-107) mmol/L BUN (9-20) mg/dL Glucose (74-99) mg/dL POC Glucose (mg/dL) 222 H (75-99) mg/dL Total Protein (6.3-8.2) g/dL Albumin (3.5-5.0) g/dL Assessment and Plan (1) S/P CABG (coronary artery bypass graft) Status: Acute (2) Status post thoracotomy Status: Acute (3) Diabetes Status: Acute (4) HTN (hypertension) Status: Acute (5) Hyperlipemia Status: Acute (6) Obesity Status: Acute Plan: Cardiology's perspective, we will recommend to continue the patient on his current medications. Patient is not currently on aspirin because of ALLERGY to aspirin. He's been encouraged regarding the use of his incentive spirometry. DNP note has been reviewed, I agree with a documented findings and plan of care. Patient was seen and examined.
[2017-06-05 17:00] LABS: Glucose,Whole Blood 161 mg/dL (75-99)
[2017-06-05 21:46] LABS: Glucose,Whole Blood 166 mg/dL (75-99)
[2017-06-05] MEDS: SENNOSIDES-DOCUSATE SODIUM 1 EACH TAB PO SCH (21:59)
[2017-06-05] MEDS: INSULIN GLARGINE 100 UNIT/ML 10 ML VIAL SQ SCH (21:59)
[2017-06-06 02:13] LABS: Glucose,Whole Blood 150 mg/dL (75-99)
[2017-06-06 06:03] LABS: Glucose,Whole Blood 147 mg/dL (75-99)
[2017-06-06] MEDS: INSULIN LISPRO (humaLOG) 300 UNIT/3 ML VIAL SQ SCH ×7 (06:59→21:30)
[2017-06-06] MEDS: HYDROcodone/APAP 5-325MG 1 EACH TAB PO PRN ×4 (07:05→23:11)
[2017-06-06] MEDS: HEPARIN SODIUM,PORCINE 5,000 UNIT/ML 1 ML VIAL SQ SCH ×3 (07:57→23:11)
[2017-06-06] MEDS: METOPROLOL TARTRATE 50 MG TAB PO SCH ×2 (07:58→20:45)
[2017-06-06] MEDS: ATORVASTATIN 40 MG TAB PO SCH (07:58)
[2017-06-06] MEDS: LISINOPRIL 5 MG TAB PO SCH ×2 (07:58→20:45)
[2017-06-06] MEDS: CLOPIDOGREL 75 MG TAB PO SCH (07:58)
[2017-06-06] MEDS: PANTOPRAZOLE 40 MG/10 ML VIAL IVP SCH (07:59)
[2017-06-06 09:00] LABS: Anion Gap 10 mmol/L; Blood Urea Nitrogen 22 mg/dL (9-20); Calcium 8.7 mg/dL (8.4-10.2); Carbon Dioxide 25 mmol/L (22-30); Chloride 98 mmol/L (98-107); Glucose 201 mg/dL (74-99); Non-African American GFR(MDRD) >60 (>60 ml/min/1.73 sqM); Potassium 4.9 mmol/L (3.5-5.1); Sodium 133 mmol/L (137-145)
[2017-06-06] MEDS ORDERED: FUROSEMIDE 10 MG/ML 2 ML VIAL IV SCH (09:00)
[2017-06-06 09:04] LABS: Basophils % (A) 0 %; CH 28.7; CHCM 30.6; Eosinophils # (A) 0.4 k/uL (0-0.7); Eosinophils % (A) 4 %; HCT 33.2 % (39.0-53.0); HDW 3.12; Hypochromasia Moderate; Luc # (Auto) 0.18; Luc % (Auto) 2; Lymphocytes # (A) 1.7 k/uL (1.0-4.8); Lymphocytes % (A) 17 %; MCH 28.6 pg (25.0-35.0); MCHC 30.3 g/dL (31.0-37.0); MCV 94.6 fL (80.0-100.0); Mean Platelet Volume 7.9; Monocytes # (A) 0.6 k/uL (0-1.0); Monocytes % (A) 6 %; Neutrophils # (A) 7.2 k/uL (1.3-7.7); Neutrophils % (A) 72 %; RBC 3.51 m/uL (4.30-5.90); WBC 10.1 k/uL (3.8-10.6); WBC (Perox) 9.89
[2017-06-06] MEDS ORDERED: diphenhydrAMINE 50 MG/ML 1 ML VIAL IVP PRN (09:08)
[2017-06-06 09:12] LABS: Manual Review Performed
--- NOTE | 2017-06-06 11:15 | P.PN ---
Subjective Progress Note Date: 06/06/17 Principal diagnosis: Symptomatic multivessel coronary artery disease. History of previous myocardial infarction, history of coronary artery disease with stent placement in 2013. Hypertension. Hyperlipidemia. Uncontrolled type 2 diabetes mellitus with admission hemoglobin A1c 10.1%. COPD. Remote smoking history. Morbid obesity. Strong family history of coronary artery disease. Osteoarthritis. POD #6 coronary artery bypass grafting 4 vessels, left internal mammary artery to left anterior descending artery, a reverse greater saphenous vein graft to diagonal artery, a reverse greater saphenous vein graft to posterior descending artery, a reverse greater saphenous vein graft to posterior lateral branch of the right coronary artery. Endoscopic vein harvest of his bilateral greater saphenous vein. Epi-aortic ultrasound. Intraoperative transesophageal echocardiogram. Closure of the sternum using Tritium plating system. The patient is lying in bed as he said he did not sleep well last night. No acute distress. He tolerated his breakfast without complaints. He reports he ambulated in the polo yesterday several times. He also reports that his bowels moved. Denies complaints of pain at this time. Objective - Vital Signs Vital signs: Vital Signs Temp 98.6 F 06/06/17 04:00 Pulse 73 06/06/17 04:00 Resp 18 06/06/17 04:00 BP 120/58 06/06/17 04:00 Pulse Ox 92 L 06/06/17 04:00 Intake & Output 06/05/17 06/06/17 06/06/17 18:59 06:59 18:59 Intake Total 480 20 Output Total 3450 900 Balance -2970 -880 Weight 133 kg Intake: IV 20 0.9NaCl 20 Oral 480 Output: Urine 3450 900 Other: Voiding Method Urinal # Voids 1 # Bowel Movements 0 ABP, PAP, CO, CI - Last Documented Arterial Blood Pressure 139/56 Pulmonary Artery Pressure 31/17 Cardiac Output 7 Cardiac Index 2.8 - Constitutional General appearance: Present: cooperative, morbidly obese, no acute distress - EENT Eyes: Present: PERRLA ENT: Present: hearing grossly normal - Neck Details: No JVD, no lymphadenopathy, neck is supple. - Respiratory Details: Lung sounds are essentially clear throughout, diminished to his bilateral bases. Respirations are symmetrical and nonlabored. His oxygen saturations are 92% on 2 L nasal cannula. He is achieving 2000 mL on his incentive spirometry. - Cardiovascular Details: Regular rhythm and rate. S1 and S2 present, negative for S3, gallop or murmur. Sternum is stable. Heart hugger is in place with patient demonstrating appropriate use. Remote telemetry showing normal sinus rhythm heart rate 86. Knee-high HALEY hose and sequential compression devices in placed with bilateral lower extremities. No edema present. Peripheral pulses palpable. - Gastrointestinal Gastrointestinal Comment(s): Abdomen is soft, nontender and nondistended. Active bowel sounds to all 4 abdominal quadrants. He is tolerating oral intake. Bowel movement yesterday . - Genitourinary Genitourinary Comment(s): Adequate urine output. 700 mL of clear yellow urine in the last 8 hours. - Integumentary Integumentary Comment(s): Midline sternal incision clean and dry and well approximated. Dermabond dressing clean dry and intact. No drainage noted. Bilateral lower extremity EVH site clean dry and well approximated. No drainage noted. - Neurologic Neurologic Comment(s): No focal deficits. Neurologic: Present: CNII-XII intact - Musculoskeletal Musculoskeletal: Present: gait normal, strength equal bilaterally - Psychiatric Psychiatric: Present: A&O x's 3, appropriate affect, intact judgment & insight - Allied health notes Allied health notes reviewed: nursing - Labs CBC & Chem 7: 06/06/17 07:54 06/06/17 07:54 Labs: Abnormal Lab Results - Last 24 Hours (Table) 06/05/17 06/05/17 06/05/17 Range/Units 11:36 16:44 21:44 POC Glucose (mg/dL) 222 H 161 H 166 H (75-99) mg/dL 06/06/17 06/06/17 Range/Units 02:09 05:55 POC Glucose (mg/dL) 150 H 147 H (75-99) mg/dL Assessment and Plan (1) Uncontrolled type 2 diabetes mellitus Status: Acute (2) COPD (chronic obstructive pulmonary disease) Status: Acute (3) History of heart artery stent Status: Acute (4) Hyperlipidemia Status: Acute (5) Previous myocardial infarction older than 8 weeks Status: Acute (6) Coronary artery disease Status: Acute (7) Family history of coronary artery disease Status: Acute (8) Hypertension Status: Acute (9) Morbid obesity Status: Acute (10) Tobacco dependence in remission Status: Acute Plan: 1. Continue Plavix, statin, heparin subcu, beta claudette and SHAR inhibitor. No aspirin secondary to ALLERGY. 2. Pulmonary management per Dr. Christiansen recommendations. 3. Increase activity as tolerated. Physical and occupational therapy are following. 4. GI/DVT prophylaxis. 5. Insulin management per primary care service. 6. Will monitor daily labs, chest x-rays. 7. Continue Lasix 20 mg IV daily. 8. Discharge planning in place, anticipate discharge home within the next 24- 48 hours. 9. More recommendations as patient progresses. Time with Patient: Greater than 30
[2017-06-06 11:55] LABS: Glucose,Whole Blood 206 mg/dL (75-99)
--- NOTE | 2017-06-06 13:55 | P.PN ---
Subjective Progress Note Date: 06/06/17 Principal diagnosis: Status post CABG This is a pleasant 67-year-old gentleman who is status post coronary artery bypass grafting surgery, he also has history of hypertension, diabetes, COPD, obesity, strong family history of coronary artery disease. He was seen and examined this morning on the telemetry unit, continues to be in normal sinus rhythm. He is sitting up in the chair, appetite is good, reaching 12- 1500 on his incentive spirometry. Hemoglobin 10.0, potassium 4.2, BUN 25, creatinine 0.8. 06/06/2017 Patient was seen and examined this morning, apparently had some hives earlier, he was given Benadryl time of my examination he no longer has any hives. Overall patient states he did not sleep well last night and feels sluggish today. Denies any chest discomfort, overall his breathing is stable. Continues to reach 1500 on his incentive spirometry. Blood pressure 114/60 with a heart rate in the 70s. Globin today 10.0, platelet count 322, BUN 22, creatinine 0.7. Objective - Vital Signs Vital signs: Vital Signs Temp 98.6 F 06/06/17 04:00 Pulse 78 06/06/17 12:00 Resp 17 06/06/17 12:00 BP 114/55 06/06/17 12:00 Pulse Ox 90 L 06/06/17 12:00 Intake & Output 06/05/17 06/06/17 06/06/17 18:59 06:59 18:59 Intake Total 480 20 480 Output Total 3450 900 Balance -2970 -880 480 Weight 133 kg Intake: IV 20 0.9NaCl 20 Oral 480 480 Output: Urine 3450 900 Other: Voiding Method Urinal # Voids 1 # Bowel Movements 0 ABP, PAP, CO, CI - Last Documented Arterial Blood Pressure 139/56 Pulmonary Artery Pressure 31/17 Cardiac Output 7 Cardiac Index 2.8 - Exam PHYSICAL EXAMINATION: HEENT: Head is atraumatic, normocephalic. Pupils equal, round. Neck is supple. There is no elevated jugular venous pressure. HEART EXAMINATION: Heart S1, S2 normal. No murmur or gallop heard. CHEST EXAMINATION: Lungs are clear to auscultation and precussion. No chest wall tenderness is noted on palpation or with deep breathing. Heart hugger in place ABDOMEN: Soft, nontender. Bowel sounds are heard. No organomegaly noted. EXTREMITIES: 2+ peripheral pulses with no evidence of peripheral edema and no calf tenderness noted. NEUROLOGIC patient is awake, alert and oriented -3. . - Labs CBC & Chem 7: 06/06/17 07:54 06/06/17 07:54 Labs: Abnormal Lab Results - Last 24 Hours (Table) 06/05/17 06/05/17 06/06/17 Range/Units 16:44 21:44 02:09 RBC (4.30-5.90) m/uL Hgb (13.0-17.5) gm/dL Hct (39.0-53.0) % MCHC (31.0-37.0) g/dL Sodium (137-145) mmol/L BUN (9-20) mg/dL Glucose (74-99) mg/dL POC Glucose (mg/dL) 161 H 166 H 150 H (75-99) mg/dL 06/06/17 06/06/17 06/06/17 Range/Units 05:55 07:54 07:54 RBC 3.51 L (4.30-5.90) m/uL Hgb 10.0 L (13.0-17.5) gm/dL Hct 33.2 L (39.0-53.0) % MCHC 30.3 L (31.0-37.0) g/dL Sodium 133 L (137-145) mmol/L BUN 22 H (9-20) mg/dL Glucose 201 H (74-99) mg/dL POC Glucose (mg/dL) 147 H (75-99) mg/dL 06/06/17 Range/Units 11:46 RBC (4.30-5.90) m/uL Hgb (13.0-17.5) gm/dL Hct (39.0-53.0) % MCHC (31.0-37.0) g/dL Sodium (137-145) mmol/L BUN (9-20) mg/dL Glucose (74-99) mg/dL POC Glucose (mg/dL) 206 H (75-99) mg/dL Assessment and Plan (1) S/P CABG (coronary artery bypass graft) Status: Acute (2) Status post thoracotomy Status: Acute (3) Diabetes Status: Acute (4) HTN (hypertension) Status: Acute (5) Hyperlipemia Status: Acute (6) Obesity Status: Acute Plan: Cardiology's perspective, we will recommend to continue the patient on his current medications. Continue to monitor the patient closely for any further reactions which could be drug-related. Patient does have a severe ALLERGIC reaction to aspirin, his only new medication at this time appears to be Plavix and SHAR inhibitor. DNP note has been reviewed, I agree with a documented findings and plan of care. Patient was seen and examined.
--- NOTE | 2017-06-06 14:46 | P.PN ---
Subjective Progress Note Date: 06/06/17 67-year-old male patient with established diagnosis of coronary artery disease with previous coronary stent, hypertension, diabetes mellitus type 2, COPD, obesity and a strong family history for CAD, who presented to his senior genetic counselor with increased shortness of breath. He had a cardiac catheterization that showed diffuse disease in the LAD with 70% stenosis in the midportion 70% stenosis in the large diagonal branch proximal circumflex occlusion and a heavily calcified right coronary artery with a 80-90% stenosis in the distal RCA. The patient was referred to CT surgery and the patient underwent four- vessel bypass surgery today. Currently is postop. He still intubated on a mechanical ventilator. His sedated with Diprivan. He is an assist-control mode of ventilation with a rate of 12, tidal volume of 700, FiO2 of 100% and a PEEP of 5. The chest x-ray and a blood gas are still pending for now. Meanwhile, hemodynamically the patient is doing well. He is hypertensive and he will be started on Celebrex drip for blood pressure control. His cardiac output is at 8.1 with an index of 3.2. He has mediastinal chest tube and left pleural chest tube. Cardiac rhythm is sinus and he has a backup pacemaker. His blood sugar is at 106. He is currently on insulin drip for blood sugar control. No other significant events . Producing adequate amount of urine output. His peak pressures around 24. As I'm dictating, the blood gases arrived at pH of 7.27 with a pCO2 of 54 and pO2 of 98. I made recommendations to increase the tidal volume to 750 and increase the respiratory rate up to 20. His FiO2 will be gradually wean down as tolerated to maintain a saturation above 92%. On 06/01/2017 the patient is being seen in follow-up. I was unable to wean off this patient from the mechanical ventilator. He became acutely hypoxic and had to increase the PEEP up to 15 and gradually moved his tidal volume down to 550. I kept his peak pressures around 28. Static pressures around 27. FiO2 this morning is down to 40%. The rest of the vent settings include an assist- control at the rate of 20, FiO2 of 40%, PEEP of 15 and tidal volume of 550. The patient is doing well. The patient is sedated and is calm and comfortable currently on 40 mics of the prevent. Chest x-ray from today shows improved aeration of the lungs bilaterally. There is improving and the central vascular congestion. There is also patchy left basilar atelectasis and the chest tubes are in place without evidence of pneumothorax. The patient is stable. The patient is on no pressors and the patient is producing adequate amount of urine output. The mediastinal chest tube has drained 90 mL of suicide on this material overnight and 170 mL since surgery and the left pleural chest tube has drained 30 mL of drainage overnight and 85 mL since surgery. The cardiac index is at 3.1. PA pressure is 42/27. No other significant events overnight otherwise. On 06/02/2017 I'm seeing this patient in follow-up. The patient remains intubated and he is still on a mechanical ventilator. His postop day #2. Noted the patient was having difficulties with oxygenation for that reason the weaning process was delayed. Currently is on 8 of PEEP with a FiO2 of 40% and a tidal volume of 550 with a rate of 20. The morning blood gases showed a pH of 7. 48 and a pCO2 of 35 and pO2 of 68. Based on that the FiO2 was brought up to 50%. Upon my earlier morning assessment, the patient's airway pressure were quite low under reasonable with a pressure of 24. He was pulse oxing 97% on room air. Chest x-ray shows postsurgical changes with atelectasis and lung bases bilaterally. There was no evidence of any pneumothorax and leads tube and the rest of the tubes are all in good location. Based on that I dropped a PEEP down to 5 and we are still monitoring his oxygenation. A possibly be a candidate for further weaning if his oxygenation remains stable. Meanwhile the patient remains sedated on Diprivan at 40 mics. He is calm and comfortable. He is hemodynamically stable. The cardiac output is 5.8 with an index of 2.4. His PA pressures around 34/20. He has adequate urine output. Has no pressors. Sternum stable clean and intact. MARITZA drain is present in the lower extremities bilaterally and there is no active drainage. The output from the chest tube is also minimal. His cardiac rhythm is sinus. On 06/03/2017 the patient is being seen in follow-up. The patient is postop day #3. The patient is extubated. Patient doing extremely well. The patient is using incentive spirometer and the patient is pulling more than 1000. The patient is on no pressors. The patient is hemodynamically stable. The patient has an adequate urine output. He is awake alert and communicating following commands and answering questions. The mediastinal chest tubes have been removed. The patient has a left pleural chest tube and output is minimal at this point. Sternum stable clean and intact. The Barbeau-Kevin catheter was removed. Chest x-ray shows postsurgical changes which are essentially some limited atelectatic changes in lung bases bilaterally. No other significant events overnight. The cardiac rhythm remains sinus. MARITZA drains were removed. The epicardial leads are still in place. On 06/04/2017 the patient is being seen in follow-up. The patient is postop day #4. He remains extubated. The patient's chest tubes have been all taken out. He is doing good on his incentive spirometer, following almost 1500. Hemodynamically stable. The patient has been switched to Lantus insulin for blood sugar control in addition to a Humalog sliding scale coverage. He is receiving 40 units of Lantus along with 13 units of Humalog with every meal plus a sliding scale coverage. No other significant events at all of the wounds are healed and the patient will be chest out of the intensive care unit today. On 06/05/2017 the patient is being seen on the medical floor. The patient is doing well without any specific complaints. He is ambulating. Sternum stable clean and intact. No drainage from the wounds. No chest pain. No respiratory difficulties. Tolerating diet and he had a bowel movement this morning. He is postop day #5. His recovering reasonably well. Blood work and the rest of the electrodes are all within normal limits. The chest x-ray from today shows postoperative changes with some left basilar airspace disease/small effusion. The heart size in the upper limits of normal. On 06/06/2017 the patient is postop day #6. The patient is doing well. He had an episode where he had developed hives and this occurred overnight. The patient reports extensive ALLERGIC reactions in the past and she has been evaluated extensively by cook jelly and he was thought to have some ALLERGIC reaction to aspirin. Note that currently the patient is on Plavix and he is not taking aspirin or any other aspirin products. He has however taken lisinopril. He was given Benadryl. The rash is subsided. No itching for now. He is sitting up on a chair. Family is at the bedside. He is having regular bowel movements. I inspected his scan and there is no evidence of any ongoing rash or lesions for now. Renal function is stable with a creatinine of 0.7. Hemodynamically stable. He is afebrile. Using incentive spirometer. Objective - Vital Signs Vital signs: Vital Signs Temp 98.6 F 06/06/17 04:00 Pulse 78 06/06/17 12:00 Resp 17 06/06/17 12:00 BP 114/55 06/06/17 12:00 Pulse Ox 90 L 06/06/17 12:00 Intake & Output 06/05/17 06/06/17 06/06/17 18:59 06:59 18:59 Intake Total 480 20 480 Output Total 3450 900 300 Balance -2970 -880 180 Weight 133 kg Intake: IV 20 0.9NaCl 20 Oral 480 480 Output: Urine 3450 900 300 Other: Voiding Method Urinal # Voids 1 # Bowel Movements 0 ABP, PAP, CO, CI - Last Documented Arterial Blood Pressure 139/56 Pulmonary Artery Pressure 31/17 Cardiac Output 7 Cardiac Index 2.8 - Exam Gen. appearance, comfortable no distress on 2 oxygen nasal cannula. He is obese.Head exam was generally normal. There was no scleral icterus or corneal arcus. Mucous membranes were moist. Neck is supple. No goiter or neck masses. Lungs sounds are diminished in lung bases bilaterally otherwise clear. Sternum stable clean and intact. Left-sided chest tube is still in place.Cardiac exam revealed the PMI to be normally situated and sized. The rhythm was regular and no extrasystoles were noted during several minutes of auscultation. The first and second heart sounds were normal and physiologic splitting of the second heart sound was noted. There were no murmurs, rubs, clicks, or gallops.Abdominal exam revealed normal bowel sounds. The abdomen was soft, non-tender, and without masses, organomegaly, or appreciable enlargement of the abdominal aorta.Examination of the extremities revealed easily palpable radial, femoral and pedal pulses. There was no cyanosis, clubbing or edema. Surgical wound sites over the lower extremity these are clean and intact and MARITZA drain has been removed.Examination of the skin revealed no evidence of significant rashes, suspicious appearing nevi or other concerning lesions. Neurologically is awake and alert and exam is nonfocal. - Labs CBC & Chem 7: 06/06/17 07:54 06/06/17 07:54 Labs: Abnormal Lab Results - Last 24 Hours (Table) 06/05/17 06/05/17 06/06/17 Range/Units 16:44 21:44 02:09 RBC (4.30-5.90) m/uL Hgb (13.0-17.5) gm/dL Hct (39.0-53.0) % MCHC (31.0-37.0) g/dL Sodium (137-145) mmol/L BUN (9-20) mg/dL Glucose (74-99) mg/dL POC Glucose (mg/dL) 161 H 166 H 150 H (75-99) mg/dL 06/06/17 06/06/17 06/06/17 Range/Units 05:55 07:54 07:54 RBC 3.51 L (4.30-5.90) m/uL Hgb 10.0 L (13.0-17.5) gm/dL Hct 33.2 L (39.0-53.0) % MCHC 30.3 L (31.0-37.0) g/dL Sodium 133 L (137-145) mmol/L BUN 22 H (9-20) mg/dL Glucose 201 H (74-99) mg/dL POC Glucose (mg/dL) 147 H (75-99) mg/dL 06/06/17 Range/Units 11:46 RBC (4.30-5.90) m/uL Hgb (13.0-17.5) gm/dL Hct (39.0-53.0) % MCHC (31.0-37.0) g/dL Sodium (137-145) mmol/L BUN (9-20) mg/dL Glucose (74-99) mg/dL POC Glucose (mg/dL) 206 H (75-99) mg/dL Assessment and Plan Plan: Assessment 1 multivessel coronary artery disease and the patient is post CABG with 4 vessel bypass involving DAY to LAD and saphenous vein graft to PDA, PLB and diagonal. The patient. The patient is postop day #6 2 post thoracotomy. The patient remains extubated and he has some limited postoperative atelectatic changes and left lung base. For the most part is actually taking well. No other significant events overnight. He is ambulating. He is recovering reasonably well.. 3 diabetes mellitus , currently on this insulin for blood sugar control in addition to a NovoLog with meal and ascites scale coverage. Blood sugars under better control for now. 4 obesity 5 COPD 6 hypertension 7 hyperlipidemia 8 high as with previous ALLERGIC reactions related to aspirin and aspirin products. Plan Watch for any further ALLERGIC reaction. May consider switching the SHAR inhibitor if he continues to have episodes of hives. No aspirin or aspirin products and the patient is currently on Plavix. Hives have subsided with that menstruation of Benadryl. Hemodynamically stable. Using incentive spirometer. Blood work is also within normal limits. The patient is doing extremely well and has been no other significant events overnight. We'll continue to follow. May need to discuss the case with his cook jelly for any advice regarding his recurrent urticarial rash/hives. No anaphylactic reactions. No angioedema.
--- NOTE | 2017-06-06 16:55 | PN ---
PROGRESS NOTE INTERVAL HISTORY: The patient developed a rash in his back this morning after taking his medication and states this is very common for him when the takes all his medication in the morning when he gets urticaria and rash that responds to the Benadryl. I provided the patient with IV Benadryl and later after 45 minutes when I checked on the patient again, the urticaria was resolved and patient was having 90% resolution of his symptoms. The patient received all his medication this morning. PHYSICAL EXAMINATION: VITAL SIGNS: Stable. LUNGS: Diminished bilaterally. HEART: S1, S2. ABDOMEN: Soft, no tenderness. Bowel sounds in all 4 quadrants. PSYCH: Alert and oriented x3. SKIN: Urticaria resolved on his back. IMAGING AND LABS: This morning CBC was stable from prior reading. Chemistry revealed mild hyponatremia. Glucose fluctuating between 147 and 206. ASSESSMENT AND PLAN: 1. Coronary artery disease status post CABG x4. Patient will be continued on cardioprotective medication. Will continue supportive care. Continue wound care and follow up with general surgery recommendation regarding discharge planning as the patient is scheduled to be discharged tomorrow per Surgery recommendation. 2. Anemia, seems to be stable. 3. Allergic reaction unknown for which medication. Patient understands that all his medications are important for his cardiac condition and he is okay with continuing his medication with Benadryl on a as needed basis as this attack happened once or twice a month and happened in the past. 4. Diabetes type 2. Fair controlled. Continue with current treatment plan. Goal is less than 180 during the hospital stay. 5. Hypertension: Goal is less than 140/90. Patient at the goal. 6. Hyperlipidemia. Continue statin. 7. Gastroesophageal reflux disease. 8. Debility. Will continue PT, OT on daily basis. 9. Constipation, resolved. MMODL / IJN: [id number] /
[2017-06-06 17:08] LABS: Glucose,Whole Blood 143 mg/dL (75-99)
[2017-06-06] MEDS: SENNOSIDES-DOCUSATE SODIUM 1 EACH TAB PO SCH (20:45)
[2017-06-06 21:22] LABS: Glucose,Whole Blood 152 mg/dL (75-99)
[2017-06-06] MEDS: INSULIN GLARGINE 100 UNIT/ML 10 ML VIAL SQ SCH (21:32)
[2017-06-06 22:21] VITALS: RESP 18
[2017-06-07 01:58] LABS: Glucose,Whole Blood 161 mg/dL (75-99)
[2017-06-07] MEDS: HYDROcodone/APAP 5-325MG 1 EACH TAB PO PRN ×2 (03:13→07:18)
[2017-06-07 05:58] LABS: Glucose,Whole Blood 147 mg/dL (75-99)
[2017-06-07] MEDS: INSULIN LISPRO (humaLOG) 300 UNIT/3 ML VIAL SQ SCH ×4 (07:16→12:22)
--- NOTE | 2017-06-07 07:19 | P.PN ---
<Palmira Phipps - Last Filed: 06/07/17 07:11> Subjective Progress Note Date: 06/07/17 Principal diagnosis: Symptomatic coronary artery disease. History of previous myocardial infarction, CAD with stent placement in 2012. Hypertension. Hyperlipidemia. Uncontrolled type 2 diabetes mellitus with admission hemoglobin A1c 10.1%. COPD. Remote smoking history. Morbid obesity. Strong family history of coronary artery disease. Osteoarthritis. POD #7 coronary artery bypass grafting 4 vessels, left internal mammary artery to left anterior descending artery, reverse saphenous vein graft to diagonal artery, reverse saphenous vein graft to posterior descending artery, reverse saphenous vein graft to posterior lateral branch of the right coronary artery. Endoscopic vein harvest bilateral greater saphenous vein. Epi-aortic ultrasound. Intraoperative transesophageal echocardiogram. Closure of the sternum using Tritium plating system. Patient's currently sitting sitting up in bed in no acute distress eating breakfast. Denies pain, shortness of breath. States he feels great and is ready to go home. Has ambulate in the hallway multiple times. Objective - Vital Signs Vital signs: Vital Signs Temp 98.2 F 06/07/17 04:00 Pulse 75 06/07/17 04:00 Resp 18 06/07/17 04:00 BP 128/70 06/07/17 04:00 Pulse Ox 93 L 06/07/17 04:00 Intake & Output 06/06/17 06/07/17 06/07/17 18:59 06:59 18:59 Intake Total 780 10 Output Total 300 800 Balance 480 -790 Weight 133.7 kg Intake: IV 10 0.9NaCl 10 Oral 780 Output: Urine 300 800 Other: Voiding Method Urinal # Voids 1 ABP, PAP, CO, CI - Last Documented Arterial Blood Pressure 139/56 Pulmonary Artery Pressure 31/17 Cardiac Output 7 Cardiac Index 2.8 - Constitutional General appearance: Present: cooperative, no acute distress, obese - Respiratory Details: Lungs sounds diminished bilaterally. Respirations even, nonlabored. Currently on room air with oxygen saturation 93%. Able to achieve 1750 mL on his incentive spirometry. Effective cough. Chest x-ray pending. - Cardiovascular Details: S1, S2 present. Regular rate and rhythm, normal sinus rhythm on telemetry. Sternum stable. Heart hugger in place with patient demonstrating appropriate use. Palpable pulses bilaterally. Trace bilateral lower extremity edema present. Antiembolism stockings, SCDs present. - Gastrointestinal Gastrointestinal Comment(s): Abdomen soft, nontender, nondistended. Active bowel sounds 4 quadrants. Tolerating diet. Positive bowel movement yesterday. - Genitourinary Genitourinary Comment(s): Continues to void clear, yellow urine. Excellent diuresis with Lasix. - Integumentary Integumentary Comment(s): Anterior chest incision well approximated and covered with dry intact dressing. Bilateral lower extremity EVH sites well approximated. - Neurologic Neurologic: Present: CNII-XII intact - Musculoskeletal Musculoskeletal: Present: gait normal, strength equal bilaterally - Psychiatric Psychiatric: Present: A&O x's 3, appropriate affect, intact judgment & insight - Allied health notes Allied health notes reviewed: nursing - Labs CBC & Chem 7: 06/06/17 07:54 06/06/17 07:54 Labs: Abnormal Lab Results - Last 24 Hours (Table) 06/06/17 06/06/17 06/06/17 Range/Units 07:54 07:54 11:46 RBC 3.51 L (4.30-5.90) m/uL Hgb 10.0 L (13.0-17.5) gm/dL Hct 33.2 L (39.0-53.0) % MCHC 30.3 L (31.0-37.0) g/dL Sodium 133 L (137-145) mmol/L BUN 22 H (9-20) mg/dL Glucose 201 H (74-99) mg/dL POC Glucose (mg/dL) 206 H (75-99) mg/dL 06/06/17 06/06/17 06/07/17 Range/Units 16:44 21:18 01:55 RBC (4.30-5.90) m/uL Hgb (13.0-17.5) gm/dL Hct (39.0-53.0) % MCHC (31.0-37.0) g/dL Sodium (137-145) mmol/L BUN (9-20) mg/dL Glucose (74-99) mg/dL POC Glucose (mg/dL) 143 H 152 H 161 H (75-99) mg/dL 06/07/17 Range/Units 05:52 RBC (4.30-5.90) m/uL Hgb (13.0-17.5) gm/dL Hct (39.0-53.0) % MCHC (31.0-37.0) g/dL Sodium (137-145) mmol/L BUN (9-20) mg/dL Glucose (74-99) mg/dL POC Glucose (mg/dL) 147 H (75-99) mg/dL - Imaging and Cardiology Chest x-ray: pending Assessment and Plan (1) Hyperlipidemia Status: Acute (2) Previous myocardial infarction older than 8 weeks Status: Acute (3) History of heart artery stent Status: Acute (4) COPD (chronic obstructive pulmonary disease) Status: Acute (5) Coronary artery disease Status: Acute (6) Family history of coronary artery disease Status: Acute (7) Hypertension Status: Acute (8) Morbid obesity Status: Acute (9) Tobacco dependence in remission Status: Acute (10) Type 2 diabetes mellitus Status: Acute Plan: 1. Continue Plavix, statin, heparin subcu, SHAR inhibitor, beta claudette. Will maximize beta claudette therapy as tolerated. No aspirin secondary to ALLERGY. 2. Will continue Lasix. 3. Encourage incentive spirometry use. 4. Increase activity, continue to ambulate in hallway. Physical therapy following. 5. GI/DVT prophylaxis. 6. Insulin management per primary care service. 7. Discharge planning in progress. Anticipate discharge to home today with home care. Time with Patient: Greater than 30 <Delvis Desai - Last Filed: 06/07/17 15:45> Objective - Vital Signs Vital signs: Vital Signs Temp 97.6 F 06/07/17 08:00 Pulse 87 06/07/17 08:46 Resp 18 06/07/17 08:00 BP 124/61 06/07/17 08:46 Pulse Ox 92 L 06/07/17 08:46 Intake & Output 06/06/17 06/07/17 06/07/17 18:59 06:59 18:59 Intake Total 780 20 240 Output Total 300 1050 Balance 480 -1030 240 Weight 133.7 kg Intake: IV 20 0.9NaCl 20 Oral 780 240 Output: Urine 300 1050 Other: Voiding Method Urinal # Voids 1 ABP, PAP, CO, CI - Last Documented Arterial Blood Pressure 139/56 Pulmonary Artery Pressure 31/17 Cardiac Output 7 Cardiac Index 2.8 - Labs CBC & Chem 7: 06/07/17 06:24 06/07/17 06:21 Labs: Abnormal Lab Results - Last 24 Hours (Table) 06/06/17 06/06/17 06/07/17 Range/Units 16:44 21:18 01:55 WBC (3.8-10.6) k/uL RBC (4.30-5.90) m/uL Hgb (13.0-17.5) gm/dL Hct (39.0-53.0) % RDW (11.5-15.5) % Sodium (137-145) mmol/L Chloride (98-107) mmol/L BUN (9-20) mg/dL Glucose (74-99) mg/dL POC Glucose (mg/dL) 143 H 152 H 161 H (75-99) mg/dL 06/07/17 06/07/17 06/07/17 Range/Units 05:52 06:21 06:24 WBC 11.8 H (3.8-10.6) k/uL RBC 3.45 L (4.30-5.90) m/uL Hgb 10.4 L (13.0-17.5) gm/dL Hct 32.5 L (39.0-53.0) % RDW 15.8 H (11.5-15.5) % Sodium 133 L (137-145) mmol/L Chloride 97 L (98-107) mmol/L BUN 23 H (9-20) mg/dL Glucose 136 H (74-99) mg/dL POC Glucose (mg/dL) 147 H (75-99) mg/dL 06/07/17 Range/Units 12:03 WBC (3.8-10.6) k/uL RBC (4.30-5.90) m/uL Hgb (13.0-17.5) gm/dL Hct (39.0-53.0) % RDW (11.5-15.5) % Sodium (137-145) mmol/L Chloride (98-107) mmol/L BUN (9-20) mg/dL Glucose (74-99) mg/dL POC Glucose (mg/dL) 155 H (75-99) mg/dL Assessment and Plan Plan: The patient was seen and examined. I agree with the above assessment and plan. Overall the patient looks good. He is hemodynamically stable and on room air. He has been ambulating without difficulty. His laboratory studies and imaging studies were reviewed. We will plan on discharging him home today.
[2017-06-07 07:29] LABS: CH 30.1; CHCM 32.2; HCT 32.5 % (39.0-53.0); HDW 3.27; HGB 10.4 gm/dL (13.0-17.5); Hypochromasia Slight; MCH 30.1 pg (25.0-35.0); MCHC 31.9 g/dL (31.0-37.0); MCV 94.2 fL (80.0-100.0); Mean Platelet Volume 7.7; RBC 3.45 m/uL (4.30-5.90); RDW 15.8 % (11.5-15.5); WBC 11.8 k/uL (3.8-10.6)
[2017-06-07] MEDS ORDERED: PANTOPRAZOLE 40 MG TABLET PO SCH (07:30)
--- NOTE | 2017-06-07 07:46 | XR ---
EXAMINATION TYPE: XR chest 2V DATE OF EXAM: 06/07/2017 COMPARISON: 06/05/2017 HISTORY: 67 year-old male post cardiac surgery TECHNIQUE: Frontal and lateral views FINDINGS: Median sternotomy wires are present with post-CABG clips in the mediastinum. Heart mildly enlarged. L brandee volumes are low with crowded vascular markings. There are small effusions present with some of th e adjacent left basilar opacity. Overall appearance is not significantly changed. IMPRESSION: 1. Mild cardiomegaly and hypoventilatory changes. 2. Small effusions with some adjacent left basilar atelectasis and/or consolidation, not significantl y changed.
[2017-06-07 07:47] LABS: Anion Gap 9 mmol/L; Blood Urea Nitrogen 23 mg/dL (9-20); Calcium 9.1 mg/dL (8.4-10.2); Carbon Dioxide 27 mmol/L (22-30); Chloride 97 mmol/L (98-107); Glucose 136 mg/dL (74-99); Non-African American GFR(MDRD) >60 (>60 ml/min/1.73 sqM); Sodium 133 mmol/L (137-145)
[2017-06-07] MEDS ORDERED: INFLUENZA VACCINE (6 MOS+) 60 MCG/0.5 ML SYRINGE IM ONE (08:26)
[2017-06-07] MEDS ORDERED: PNEUMOCOCCAL VACC-PNEUMOVAX 23 25 MCG/0.5 ML VIAL IM ONE (08:26)
[2017-06-07 08:48] VITALS: BP 124/61
[2017-06-07] MEDS ORDERED: FUROSEMIDE 40 MG TAB PO SCH (09:00)
--- NOTE | 2017-06-07 09:37 | P.DS ---
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: post cardiac surgery Do you want consulting provider notified?: Yes Primary care physician: Stated None - Discharge Diagnosis(es) (1) Hyperlipidemia Current Visit: Yes Status: Acute (2) Previous myocardial infarction older than 8 weeks Current Visit: Yes Status: Acute (3) History of heart artery stent Current Visit: Yes Status: Acute (4) COPD (chronic obstructive pulmonary disease) Current Visit: Yes Status: Acute (5) Coronary artery disease Current Visit: No Status: Acute (6) Family history of coronary artery disease Current Visit: No Status: Acute (7) Hypertension Current Visit: No Status: Acute (8) Morbid obesity Current Visit: No Status: Acute (9) Tobacco dependence in remission Current Visit: No Status: Acute (10) Type 2 diabetes mellitus Current Visit: No Status: Acute Hospital Course: FINAL DIAGNOSIS: 1. Symptomatic multivessel coronary artery disease 2. History of previous myocardial infarction, history of coronary artery disease with stent placement 2012 3. Hypertension 4. Hyperlipidemia 5. Uncontrolled type 2 diabetes mellitus with admission hemoglobin A1c 10.1% 6. COPD 7. Remote smoking history 8. Morbid obesity 9. Strong family history of coronary artery disease 10. Osteoarthritis 11. Postoperative prolonged mechanical ventilation PRINCIPAL PROCEDURE: 1. Elective coronary artery bypass grafting 4 vessels, with the left internal mammary artery to the left anterior descending artery, reverse saphenous vein graft to the diagonal artery, reverse saphenous vein graft to posterior descending artery, reverse saphenous vein graft to the posterior lateral branch of the right coronary artery 2. Endoscopic vein harvesting bilateral greater saphenous veins 3. Epi-aortic ultrasound 4. Intraoperative transesophageal echocardiogram 5. Closure of the sternum using Tritium plating system HISTORY OF PRESENT ILLNESS: This 67-year-old gentleman presented to Dr. Sarmiento's office after noting a recent increase in exertional chest pain relieved with sublingual nitro. He was recommended to undergo heart catheterization which demonstrated left anterior descending artery with diffuse disease with 70% stenosis in the midportion and 70% stenosis and a large diagonal branch, proximal circumflex artery with subtotal occlusion, and heavily calcified right coronary artery with 80-90% stenosis in the distal RCA. Dr. Desai from cardiothoracic surgery was asked to consult regarding the possibility of surgical revascularization. He was recommended to undergo coronary artery bypass graft surgery. An extensive discussion was had with the patient and his family, risks and benefits were explained, and consent was obtained to proceed with surgery. Preadmission testing was initiated. An echocardiogram demonstrated normal left ventricular function with grade I diastolic dysfunction , ejection fraction 55%, mild mitral regurgitation, mild aortic insufficiency, mild tricuspid and pulmonic regurgitation with a normal aorta. The patient was discharged home to be brought back in as an outpatient. He had carotid dopplers completed in Dr. Sarmiento's office which demonstrated significant carotid stenosis. CT angiogram of the neck was completed demonstrating 65-70% stenosis in the bilateral proximal internal carotid arteries. The decision was made to continue with the plan for surgery, the patient and family were updated and were agreeable, and discussion was had with the patient and his family that his carotids will need intervention in the future. HOSPITAL COURSE: The patient was brought to the hospital on 05/31/2017, taken to the preoperative area, prepared in the usual fashion, and subsequently taken to the operating room where performed an elective coronary artery bypass grafting 4 vessels, with the left internal mammary artery to the left anterior descending artery, reverse saphenous vein graft to the diagonal artery , reverse saphenous vein graft to posterior descending artery, reverse saphenous vein graft to the posterior lateral branch of the right coronary artery, endoscopic vein harvesting bilateral greater saphenous veins, epi- aortic ultrasound, intraoperative transesophageal echocardiogram, and closure of the sternum using the Tritium plating system. Upon completion of the surgery the patient was transferred to the cardiovascular intensive care unit where he was recovered, monitored hemodynamically, and where he progressed to cardiac rehabilitation phase 1. He did experience prolonged mechanical ventilation, but was eventually extubated, all lines, tubes, and drips were discontinued when appropriate, and he was transferred to [address] [place] [address] for further monitoring and rehabilitation. His oxygen was titrated down, he continued to work with physical therapy, and was ready to be discharged home on postoperative day #7 with [facility] to follow. He received written and verbal instruction regarding his medications, activity restrictions, signs and symptoms requiring physician notification, and follow-up appointments. COMPLICATIONS: The patient experienced postoperative prolonged mechanical ventilation. Patient Condition at Discharge: Stable Plan - Discharge Summary New Discharge Prescriptions: No Action Umeclidinium Brm/Vilanterol Tr [Anoro Ellipta 62.5-25 Mcg INH] 1 puff INHALATION RT-DAILY Nitroglycerin Sl Tabs [Nitrostat] 0.4 mg SUBLINGUAL Q5M PRN PRN Reason: Chest Pain Metoprolol Tartrate [Lopressor] 50 mg PO DAILY Atorvastatin [Lipitor] 10 mg PO DAILY Mupirocin 2% Nasal Oint [Bactroban 2% Nasal Oint] 1 applic NASAL BID Aspirin [Adult Low Dose Aspirin EC] 81 mg PO ONCE Isosorbide Mononitrate ER [Imdur] 30 mg PO DAILY Discharge Medication List Atorvastatin [Lipitor] 10 mg PO DAILY 05/27/17 [History] Metoprolol Tartrate [Lopressor] 50 mg PO DAILY 05/27/17 [History] Nitroglycerin Sl Tabs [Nitrostat] 0.4 mg SUBLINGUAL Q5M PRN 05/27/17 [History] Umeclidinium Brm/Vilanterol Tr [Anoro Ellipta 62.5-25 Mcg INH] 1 puff INHALATION RT-DAILY 05/27/17 [History] Mupirocin 2% Nasal Oint [Bactroban 2% Nasal Oint] 1 applic NASAL BID 05/28/17 [ History] Aspirin [Adult Low Dose Aspirin EC] 81 mg PO ONCE 05/31/17 [History] Isosorbide Mononitrate ER [Imdur] 30 mg PO DAILY 05/31/17 [History] Follow up Appointment(s)/Referral(s): David Palomares MD [REFERRING] - 1 Week Delvis Desai MD [STAFF PHYSICIAN] - 1 Week Tate Sarmiento MD [STAFF PHYSICIAN] - 1 Week Radha Christiansen MD [STAFF PHYSICIAN] - 1 Week Palmira Phipps NPC [Nurse Practitioner] - 1 Week Ambulatory/Diagnostic Orders: Complete Blood Count w/diff [LAB.AMB] Time Frame: 3 Days, Location: Determined By Patient Comprehensive Metabolic Panel [LAB.AMB] Time Frame: 3 Days, Location: Determined By Patient Activity/Diet/Wound Care/Special Instructions: DISCHARGE INSTRUCTIONS: 1. No driving for 4 weeks, or until physician gives their ok. 2. The patient should sleep in their own bed, no medical bed needed. 3. Stairs are not an issue. If the bedroom is upstairs, it is advised that the patient go up at night and down in the morning for the first week. Go slowly, using handrail and take 1 step at a time. 4. HALEY hose are to be worn for 30 days or until physician discontinues. 5. Heart hugger is to be worn 100% of the time until physician discontinues.( except when showering) 6. No lifting, pushing, or pulling more than 10 pounds for 12 weeks. The physician will advise of any restriction changes. 7. The patient is expected to continue the prescribed walking program. 8. Continue pain control per as needed orders. 9. Continue with incentive spirometry and splinting/heart hugger until otherwise directed by the physician. 10. Must shower daily using liquid antibacterial soap and a separate white washcloth for each individual incision. 11. Routine sternal incision care. No powders, lotions, ointments on incisions. 12. Please call surgeon/FELT PAD CUTTER for temp greater than 101 F or purulent drainage from incisions. 13. All prescriptions given by surgeon for 30 days. Refills need to be filled through alarm service technician/primary care physician. HOME HEALTH SERVICES TO PROVIDE: RN SKILLED HOME CARE SERVICES FOR POST-OP SURGICAL PATIENTS WITH THE FOLLOWING: Coronary Artery Bypass Surgery (CABG), Mitral Valve Replacement/ Repair ( MVR), Aortic Valve Replacement/Repair (AVR) RN TO CONTINUE EDUCATION FROM ``ROAD TO A HEALTH HEART PATIENT EDUCATION MANUAL (GIVEN TO PATIENT IN THE HOSPITAL) MEDICATION RECONCILIATION WITH EDUCATION NEEDED ON FIRST HOME VISIT EMPHASIZE IMPORTANCE OF WEARING BREAST SUPPORT/HEART HUGGER ENCOURAGE USE OF INCENTIVE SPIROMETER 10 X EVERY HOUR WHILE AWAKE ENCOURAGE UTILIZATION OF LOWER EXTREMITY COMPRESSION STOCKINGS/HALEY HOSE and ELEVATE LEGS ABOVE LEVEL OF HEART WHILE AT REST. ENCOURAGE AMBULATION 3-5x/day INCREASING TOLERATES, WHILE AVOID EXTREMES IN TEMPERATURE FREQUENCY: RN TO OPEN THE PATIENT WITHIN 24 HOURS OF DISCHARGE FROM THE HOSPITAL WITH TELEHEALTH INSTALLED AT [facility], RN TO VISIT 2-3 X A WEEK FOR 4 WEEKS ESTABLISHED BY PATIENT NEEDS. LABORATORY: CBC, CMP TO BE DRAWN ON THE THIRD DAY HOME, 06/10/2017 (RAN STAT ) FAX RESULTS TO [phone]. TELEHEALTH PARAMETERS: WEIGHT: NOTIFY MD OF WEIGHT GAIN OF 2 LBS IN 24 HOURS OR 5 LBS IN ONE WEEK HR: NOTIFY MD OF HR <55 BPM OR HR>100 BPM BP: NOTIFY MD IF BP <90/55 OR BP>140/100 O2 SAT: NOTIFY MD IF PO2<93% ON ROOM AIR SEND TELEHEALTH REPORT TO [employer] INSURANCE CLAIM EXAMINER AND CARDIOVASCULAR SURGEON THE FIRST WEEK OF CARE AND THEN BI-WEEKLY. PLEASE ADDITIONALLY COMMUNICATE ANY ABNORMALS AND NEW FINDINGS TO THE SURGEONS OFFICE. A Red armband has been placed on the patient. It should be worn for 30 days post surgery and will be removed by the cardiac surgeons. If an ER visit is necessary, please make sure the number on the Red armband is called.
[2017-06-07] MEDS: HEPARIN SODIUM,PORCINE 5,000 UNIT/ML 1 ML VIAL SQ SCH (09:53)
[2017-06-07] MEDS: CLOPIDOGREL 75 MG TAB PO SCH (09:55)
[2017-06-07] MEDS: ATORVASTATIN 40 MG TAB PO SCH (09:55)
[2017-06-07] MEDS: METOPROLOL TARTRATE 50 MG TAB PO SCH (09:55)
[2017-06-07] MEDS: LISINOPRIL 5 MG TAB PO SCH (09:56)
[2017-06-07 10:23] VITALS: PULSE 88; TEMP 97.6
[2017-06-07 12:17] LABS: Glucose,Whole Blood 155 mg/dL (75-99)
--- NOTE | 2017-06-07 12:26 | P.PN ---
Subjective Progress Note Date: 06/07/17 Principal diagnosis: Status post CABG, postoperative day #7 67-year-old male patient with established diagnosis of coronary artery disease with previous coronary stent, hypertension, diabetes mellitus type 2, COPD, obesity and a strong family history for CAD, who presented to his claims attorney with increased shortness of breath. He had a cardiac catheterization that showed diffuse disease in the LAD with 70% stenosis in the midportion 70% stenosis in the large diagonal branch proximal circumflex occlusion and a heavily calcified right coronary artery with a 80-90% stenosis in the distal RCA. The patient was referred to CT surgery and the patient underwent four- vessel bypass surgery today. Currently is postop. He still intubated on a mechanical ventilator. His sedated with Diprivan. He is an assist-control mode of ventilation with a rate of 12, tidal volume of 700, FiO2 of 100% and a PEEP of 5. The chest x-ray and a blood gas are still pending for now. Meanwhile, hemodynamically the patient is doing well. He is hypertensive and he will be started on Celebrex drip for blood pressure control. His cardiac output is at 8.1 with an index of 3.2. He has mediastinal chest tube and left pleural chest tube. Cardiac rhythm is sinus and he has a backup pacemaker. His blood sugar is at 106. He is currently on insulin drip for blood sugar control. No other significant events . Producing adequate amount of urine output. His peak pressures around 24. As I'm dictating, the blood gases arrived at pH of 7.27 with a pCO2 of 54 and pO2 of 98. I made recommendations to increase the tidal volume to 750 and increase the respiratory rate up to 20. His FiO2 will be gradually wean down as tolerated to maintain a saturation above 92%. On 06/01/2017 the patient is being seen in follow-up. I was unable to wean off this patient from the mechanical ventilator. He became acutely hypoxic and had to increase the PEEP up to 15 and gradually moved his tidal volume down to 550. I kept his peak pressures around 28. Static pressures around 27. FiO2 this morning is down to 40%. The rest of the vent settings include an assist- control at the rate of 20, FiO2 of 40%, PEEP of 15 and tidal volume of 550. The patient is doing well. The patient is sedated and is calm and comfortable currently on 40 mics of the prevent. Chest x-ray from today shows improved aeration of the lungs bilaterally. There is improving and the central vascular congestion. There is also patchy left basilar atelectasis and the chest tubes are in place without evidence of pneumothorax. The patient is stable. The patient is on no pressors and the patient is producing adequate amount of urine output. The mediastinal chest tube has drained 90 mL of suicide on this material overnight and 170 mL since surgery and the left pleural chest tube has drained 30 mL of drainage overnight and 85 mL since surgery. The cardiac index is at 3.1. PA pressure is 42/27. No other significant events overnight otherwise. On 06/02/2017 I'm seeing this patient in follow-up. The patient remains intubated and he is still on a mechanical ventilator. His postop day #2. Noted the patient was having difficulties with oxygenation for that reason the weaning process was delayed. Currently is on 8 of PEEP with a FiO2 of 40% and a tidal volume of 550 with a rate of 20. The morning blood gases showed a pH of 7. 48 and a pCO2 of 35 and pO2 of 68. Based on that the FiO2 was brought up to 50%. Upon my earlier morning assessment, the patient's airway pressure were quite low under reasonable with a pressure of 24. He was pulse oxing 97% on room air. Chest x-ray shows postsurgical changes with atelectasis and lung bases bilaterally. There was no evidence of any pneumothorax and leads tube and the rest of the tubes are all in good location. Based on that I dropped a PEEP down to 5 and we are still monitoring his oxygenation. A possibly be a candidate for further weaning if his oxygenation remains stable. Meanwhile the patient remains sedated on Diprivan at 40 mics. He is calm and comfortable. He is hemodynamically stable. The cardiac output is 5.8 with an index of 2.4. His PA pressures around 34/20. He has adequate urine output. Has no pressors. Sternum stable clean and intact. MARITZA drain is present in the lower extremities bilaterally and there is no active drainage. The output from the chest tube is also minimal. His cardiac rhythm is sinus. On 06/03/2017 the patient is being seen in follow-up. The patient is postop day #3. The patient is extubated. Patient doing extremely well. The patient is using incentive spirometer and the patient is pulling more than 1000. The patient is on no pressors. The patient is hemodynamically stable. The patient has an adequate urine output. He is awake alert and communicating following commands and answering questions. The mediastinal chest tubes have been removed. The patient has a left pleural chest tube and output is minimal at this point. Sternum stable clean and intact. The Sutton-Kevin catheter was removed. Chest x-ray shows postsurgical changes which are essentially some limited atelectatic changes in lung bases bilaterally. No other significant events overnight. The cardiac rhythm remains sinus. MARITZA drains were removed. The epicardial leads are still in place. On 06/04/2017 the patient is being seen in follow-up. The patient is postop day #4. He remains extubated. The patient's chest tubes have been all taken out. He is doing good on his incentive spirometer, following almost 1500. Hemodynamically stable. The patient has been switched to Lantus insulin for blood sugar control in addition to a Humalog sliding scale coverage. He is receiving 40 units of Lantus along with 13 units of Humalog with every meal plus a sliding scale coverage. No other significant events at all of the wounds are healed and the patient will be chest out of the intensive care unit today. On 06/05/2017 the patient is being seen on the medical floor. The patient is doing well without any specific complaints. He is ambulating. Sternum stable clean and intact. No drainage from the wounds. No chest pain. No respiratory difficulties. Tolerating diet and he had a bowel movement this morning. He is postop day #5. His recovering reasonably well. Blood work and the rest of the electrodes are all within normal limits. The chest x-ray from today shows postoperative changes with some left basilar airspace disease/small effusion. The heart size in the upper limits of normal. On 06/06/2017 the patient is postop day #6. The patient is doing well. He had an episode where he had developed hives and this occurred overnight. The patient reports extensive ALLERGIC reactions in the past and she has been evaluated extensively by print graphic designer and he was thought to have some ALLERGIC reaction to aspirin. Note that currently the patient is on Plavix and he is not taking aspirin or any other aspirin products. He has however taken lisinopril. He was given Benadryl. The rash is subsided. No itching for now. He is sitting up on a chair. Family is at the bedside. He is having regular bowel movements. I inspected his scan and there is no evidence of any ongoing rash or lesions for now. Renal function is stable with a creatinine of 0.7. Hemodynamically stable. He is afebrile. Using incentive spirometer. Reevaluated on 06/07/2017, patient is doing well, asymptomatic, off oxygen, chest x-ray showed minimal left lower lobe atelectasis, maybe a small tiny effusion, patient is cleared from the pulmonary perspective for discharge home. Objective - Vital Signs Vital signs: Vital Signs Temp 97.6 F 06/07/17 08:00 Pulse 87 06/07/17 08:46 Resp 18 06/07/17 08:00 BP 124/61 06/07/17 08:46 Pulse Ox 92 L 06/07/17 08:46 Intake & Output 06/06/17 06/07/17 06/07/17 18:59 06:59 18:59 Intake Total 780 20 240 Output Total 300 1050 Balance 480 -1030 240 Weight 133.7 kg Intake: IV 20 0.9NaCl 20 Oral 780 240 Output: Urine 300 1050 Other: Voiding Method Urinal # Voids 1 ABP, PAP, CO, CI - Last Documented Arterial Blood Pressure 139/56 Pulmonary Artery Pressure 31/17 Cardiac Output 7 Cardiac Index 2.8 - Exam Physical Exam: Revealed a 67-year-old in no distress. HEENT:[Neck is supple.] [No neck masses.] [No thyromegaly.] [No JVD.] Chest: [Clear throughout, no crackles, no rhonchi, no wheezes.] Cardiac Exam: [Normal S1 and S2, no S3 gallop, no murmur.] Abdomen: [Soft, nontender, no megaly, no rebound, no guarding, normal bowel sounds.] Extremities: [No clubbing, no edema, no cyanosis.] Neurological Exam: [No focal neurologic deficit.] Muscular skeletal: Adequate muscle strength, normal range of motion. Psychiatric: Normal affect, normal mood, and normal mental status exam - Labs CBC & Chem 7: 06/07/17 06:24 06/07/17 06:21 Labs: Abnormal Lab Results - Last 24 Hours (Table) 06/06/17 06/06/17 06/07/17 Range/Units 16:44 21:18 01:55 WBC (3.8-10.6) k/uL RBC (4.30-5.90) m/uL Hgb (13.0-17.5) gm/dL Hct (39.0-53.0) % RDW (11.5-15.5) % Sodium (137-145) mmol/L Chloride (98-107) mmol/L BUN (9-20) mg/dL Glucose (74-99) mg/dL POC Glucose (mg/dL) 143 H 152 H 161 H (75-99) mg/dL 06/07/17 06/07/17 06/07/17 Range/Units 05:52 06:21 06:24 WBC 11.8 H (3.8-10.6) k/uL RBC 3.45 L (4.30-5.90) m/uL Hgb 10.4 L (13.0-17.5) gm/dL Hct 32.5 L (39.0-53.0) % RDW 15.8 H (11.5-15.5) % Sodium 133 L (137-145) mmol/L Chloride 97 L (98-107) mmol/L BUN 23 H (9-20) mg/dL Glucose 136 H (74-99) mg/dL POC Glucose (mg/dL) 147 H (75-99) mg/dL 06/07/17 Range/Units 12:03 WBC (3.8-10.6) k/uL RBC (4.30-5.90) m/uL Hgb (13.0-17.5) gm/dL Hct (39.0-53.0) % RDW (11.5-15.5) % Sodium (137-145) mmol/L Chloride (98-107) mmol/L BUN (9-20) mg/dL Glucose (74-99) mg/dL POC Glucose (mg/dL) 155 H (75-99) mg/dL Assessment and Plan Plan: 1 multivessel coronary artery disease and the patient is post CABG with 4 vessel bypass involving DAY to LAD and saphenous vein graft to PDA, PLB and diagonal. The patient. The patient is postop day #7 2 post thoracotomy. The patient remains extubated and he has some limited postoperative atelectatic changes and left lung base. For the most part is actually taking well. No other significant events overnight. He is ambulating. He is recovering reasonably well.. 3 diabetes mellitus , currently on this insulin for blood sugar control in addition to a NovoLog with meal and ascites scale coverage. Blood sugars under better control for now. 4 obesity 5 COPD 6 hypertension 7 hyperlipidemia 8 high as with previous ALLERGIC reactions related to aspirin and aspirin products. Recommendation: Agree with discharge planning home today, a shunt will follow- up with Dr. Christiansen in 1-2 weeks. Time with Patient: Less than 30
--- NOTE | 2017-06-07 14:16 | P.PN ---
Subjective Progress Note Date: 06/07/17 Principal diagnosis: Status post CABG This is a pleasant 67-year-old gentleman who is status post coronary artery bypass grafting surgery, he also has history of hypertension, diabetes, COPD, obesity, strong family history of coronary artery disease. He was seen and examined this morning on the telemetry unit, continues to be in normal sinus rhythm. He is sitting up in the chair, appetite is good, reaching 12- 1500 on his incentive spirometry. Hemoglobin 10.0, potassium 4.2, BUN 25, creatinine 0.8. 06/06/2017 Patient was seen and examined this morning, apparently had some hives earlier, he was given Benadryl time of my examination he no longer has any hives. Overall patient states he did not sleep well last night and feels sluggish today. Denies any chest discomfort, overall his breathing is stable. Continues to reach 1500 on his incentive spirometry. Blood pressure 114/60 with a heart rate in the 70s. Globin today 10.0, platelet count 322, BUN 22, creatinine 0.7. 06/07/2017 Patient seen and examined this morning, sitting up in the chair, no complaints, did not sleep well through the night last night. Anticipating discharge home today. Objective - Vital Signs Vital signs: Vital Signs Temp 97.6 F 06/07/17 08:00 Pulse 87 06/07/17 08:46 Resp 18 06/07/17 08:00 BP 124/61 06/07/17 08:46 Pulse Ox 92 L 06/07/17 08:46 Intake & Output 06/06/17 06/07/17 06/07/17 18:59 06:59 18:59 Intake Total 780 20 240 Output Total 300 1050 Balance 480 -1030 240 Weight 133.7 kg Intake: IV 20 0.9NaCl 20 Oral 780 240 Output: Urine 300 1050 Other: Voiding Method Urinal # Voids 1 ABP, PAP, CO, CI - Last Documented Arterial Blood Pressure 139/56 Pulmonary Artery Pressure 31/17 Cardiac Output 7 Cardiac Index 2.8 - Exam PHYSICAL EXAMINATION: HEENT: Head is atraumatic, normocephalic. Pupils equal, round. Neck is supple. There is no elevated jugular venous pressure. HEART EXAMINATION: Heart S1, S2 normal. No murmur or gallop heard. CHEST EXAMINATION: Lungs are clear to auscultation and precussion. No chest wall tenderness is noted on palpation or with deep breathing. Heart hugger in place ABDOMEN: Soft, nontender. Bowel sounds are heard. No organomegaly noted. EXTREMITIES: 2+ peripheral pulses with no evidence of peripheral edema and no calf tenderness noted. NEUROLOGIC patient is awake, alert and oriented -3. . - Labs CBC & Chem 7: 06/07/17 06:24 06/07/17 06:21 Labs: Abnormal Lab Results - Last 24 Hours (Table) 06/06/17 06/06/17 06/07/17 Range/Units 16:44 21:18 01:55 WBC (3.8-10.6) k/uL RBC (4.30-5.90) m/uL Hgb (13.0-17.5) gm/dL Hct (39.0-53.0) % RDW (11.5-15.5) % Sodium (137-145) mmol/L Chloride (98-107) mmol/L BUN (9-20) mg/dL Glucose (74-99) mg/dL POC Glucose (mg/dL) 143 H 152 H 161 H (75-99) mg/dL 06/07/17 06/07/17 06/07/17 Range/Units 05:52 06:21 06:24 WBC 11.8 H (3.8-10.6) k/uL RBC 3.45 L (4.30-5.90) m/uL Hgb 10.4 L (13.0-17.5) gm/dL Hct 32.5 L (39.0-53.0) % RDW 15.8 H (11.5-15.5) % Sodium 133 L (137-145) mmol/L Chloride 97 L (98-107) mmol/L BUN 23 H (9-20) mg/dL Glucose 136 H (74-99) mg/dL POC Glucose (mg/dL) 147 H (75-99) mg/dL 06/07/17 Range/Units 12:03 WBC (3.8-10.6) k/uL RBC (4.30-5.90) m/uL Hgb (13.0-17.5) gm/dL Hct (39.0-53.0) % RDW (11.5-15.5) % Sodium (137-145) mmol/L Chloride (98-107) mmol/L BUN (9-20) mg/dL Glucose (74-99) mg/dL POC Glucose (mg/dL) 155 H (75-99) mg/dL Assessment and Plan (1) S/P CABG (coronary artery bypass graft) Status: Acute (2) Status post thoracotomy Status: Acute (3) Diabetes Status: Acute (4) HTN (hypertension) Status: Acute (5) Hyperlipemia Status: Acute (6) Obesity Status: Acute Plan: Cardiology's perspective, we will recommend to continue the patient on his current medications. Patient may be able to be discharged once cleared by cardiothoracic surgery, we'll follow him up in the office 2 weeks post discharge. DNP note has been reviewed, I agree with a documented findings and plan of care. Patient was seen and examined.
--- NOTE | 2017-06-07 14:49 | P.PN ---
Subjective Progress Note Date: 06/07/17 This is a 67-year-old male patient of Dr David Palomares with a past medical history of coronary artery disease with previous coronary stent, hypertension, diabetes mellitus type 2, COPD, obesity and a strong family history for CAD, who presented to his shingler with increased shortness of breath. Patient was out for a bike ride 3 blocks with his and developed severe chest pain with previous episodes of chest pain. He contacted his shingler, Dr. Sarmiento. He had a cardiac catheterization that showed diffuse disease in the LAD with 70% stenosis in the midportion 70% stenosis in the large diagonal branch proximal circumflex occlusion and a heavily calcified right coronary artery with a 80-90% stenosis in the distal RCA. The patient was referred to CT surgery and the patient underwent four-vessel bypass surgery completed yesterday. He remains intubated and on mechanical ventilation. His was at the bedside and the patient is being checked for possible extubation over the next few hours. 06/02: Patient remains in the intensive care unit and was successfully extubated at 11 AM today. Hemoglobin is stable at 11.4. He states his chest is sore. Breathing is stable at this time. Chest tubes, Ly catheter, MARITZA drains, pacemaker wires in place. Patient has started using incentive spirometry. 06/03: Patient remains in intensive care unit. He is sitting up in a chair this morning. He is scheduled to have left pleural chest tube and cordis removed today. We will plan to transition him off insulin drip and onto Lantus and scheduled Humalog and scale. He denies having any nausea or vomiting. His diet is being advanced. He has passed gas but has not had a bowel movement. 06/04: Patient remains in the intensive care unit. Chest tubes are all out. He is scheduled for transfer out of the intensive care unit today. Blood sugars are on the high side for which Lantus will be increased to 44 units. 06/07: Patient is scheduled for discharge home today. Noted that his hemoglobin A1c was 9.7. He states he was on metformin but was taken off it due to diarrhea. He has also been on glipizide in the past but most recently has not been on any treatment for his diabetes. Discussed need for him to be on insulin at least for the next few months until he is stabilized and he can discuss further medications with his physician. Patient will be discharged home on Lantus 50 unitsand scheduled Humalog 13 units with meals. Objective - Vital Signs Vital signs: Vital Signs Temp 98.2 F 06/07/17 04:00 Pulse 75 06/07/17 04:00 Resp 18 06/07/17 04:00 BP 128/70 06/07/17 04:00 Pulse Ox 93 L 06/07/17 04:00 Intake & Output 06/06/17 06/07/17 06/07/17 18:59 06:59 18:59 Intake Total 780 20 Output Total 300 1050 Balance 480 -1030 Weight 133.7 kg Intake: IV 20 0.9NaCl 20 Oral 780 Output: Urine 300 1050 Other: Voiding Method Urinal # Voids 1 ABP, PAP, CO, CI - Last Documented Arterial Blood Pressure 139/56 Pulmonary Artery Pressure 31/17 Cardiac Output 7 Cardiac Index 2.8 - Exam General appearance: average body habitus, no distress - EENT Eyes: anicteric sclerae, normal appearance ENT: NA/AT, no thrush Ears: bilateral: normal - Neck Neck: no lymphadenopathy Carotids: bilateral: upstroke delayed Thyroid: bilateral: normal size - Respiratory Respiratory: bilateral: diminished, rhonchi, negative: dullness, rales, wheezing , prolonged expiration - Cardiovascular Rhythm: regular Heart sounds: normal: S1, S2 Abnormal Heart Sounds: systolic murmur, rub, S3 Gallop, no click - Gastrointestinal General gastrointestinal: normal bowel sounds, soft, no splenomegaly, no tenderness, no umbilical hernia, no ventral hernia - Integumentary Integumentary: normal, normal turgor - Psychiatric Psychiatric: A&O x's 3, appropriate affect, intact judgment & insight - Labs CBC & Chem 7: 06/07/17 06:24 06/07/17 06:21 Labs: Abnormal Lab Results - Last 24 Hours (Table) 06/06/17 06/06/17 06/06/17 Range/Units 07:54 07:54 11:46 WBC (3.8-10.6) k/uL RBC 3.51 L (4.30-5.90) m/uL Hgb 10.0 L (13.0-17.5) gm/dL Hct 33.2 L (39.0-53.0) % MCHC 30.3 L (31.0-37.0) g/dL RDW (11.5-15.5) % Sodium 133 L (137-145) mmol/L Chloride (98-107) mmol/L BUN 22 H (9-20) mg/dL Glucose 201 H (74-99) mg/dL POC Glucose (mg/dL) 206 H (75-99) mg/dL 06/06/17 06/06/17 06/07/17 Range/Units 16:44 21:18 01:55 WBC (3.8-10.6) k/uL RBC (4.30-5.90) m/uL Hgb (13.0-17.5) gm/dL Hct (39.0-53.0) % MCHC (31.0-37.0) g/dL RDW (11.5-15.5) % Sodium (137-145) mmol/L Chloride (98-107) mmol/L BUN (9-20) mg/dL Glucose (74-99) mg/dL POC Glucose (mg/dL) 143 H 152 H 161 H (75-99) mg/dL 06/07/17 06/07/17 06/07/17 Range/Units 05:52 06:21 06:24 WBC 11.8 H (3.8-10.6) k/uL RBC 3.45 L (4.30-5.90) m/uL Hgb 10.4 L (13.0-17.5) gm/dL Hct 32.5 L (39.0-53.0) % MCHC (31.0-37.0) g/dL RDW 15.8 H (11.5-15.5) % Sodium 133 L (137-145) mmol/L Chloride 97 L (98-107) mmol/L BUN 23 H (9-20) mg/dL Glucose 136 H (74-99) mg/dL POC Glucose (mg/dL) 147 H (75-99) mg/dL Assessment and Plan Plan: 1. Acute hypoxic vent dependent respiratory failure post CABG 4 (unexpected due to underlying COPD). Patient has been successfully extubated. Continue current plan per Dr. Christiansen. 2. Coronary artery disease status post CABG with 4 vessel bypass involving DAY to LAD and saphenous vein graft to PDA, PLV and diagonal. Continue patient on Lipitor 40 mg, Lasix 20 mg IV every 12 hours, Plavix 75 mg daily, Lopressor 75 mg twice daily. 3. History of CAD with prior stent in 2012. Maintain the patient on Lipitor 40 mg a day as well as metoprolol 50 mg twice every day. 3. Diabetes mellitus type 2. Currently on Lantus 44 units at bedtime along with Humalog 13 units with meals and scale. 4. Morbid obesity. Patient would need to go into the a full weight loss program without the need for any surgical intervention. 5. History of COPD without exacerbation. Continue aggressive pulmonary toileting with DuoNeb. 6. Hypertension hypertensive cardio vascular disease. Continue patient on metoprolol. 7. Hyperlipidemia. Continue lipitor increased to 40mg daily. Discharge plan: PT has recommended home with homecare Impression and plan of care have been directed as dictated by the signing physician. Ewelina Hernandez nurse practitioner acting as scribe for signing physician. Cc: Dr. Palomares
== END 2017-06-07 12:40 | disposition home health service (06) | DRG 235 ==
LOC: 2ORMAIN 05:36 → 6ICU 12:35 → 6SEL 06-04 17:39
PROVIDERS: ADMIT Surgery; ATTEND Surgery
PROC: B246ZZ4 Ultrasonography of Right and Left Heart, Transesophageal (ICD-10-PCS; principal; 2017-05-31 08:00)
PROC: 5A1221Z Performance of Cardiac Output, Continuous (ICD-10-PCS; principal; 2017-05-31 08:00)
PROC: 06BP4ZZ Excision of Right Saphenous Vein, Percutaneous Endoscopic Approach (ICD-10-PCS; principal; 2017-05-31 08:00)
PROC: 06BQ4ZZ Excision of Left Saphenous Vein, Percutaneous Endoscopic Approach (ICD-10-PCS; principal; 2017-05-31 08:00)
PROC: 021209W Bypass Coronary Artery, Three Arteries from Aorta with Autologous Venous Tissue, Open Approach (ICD-10-PCS; principal; 2017-05-31 08:00)
PROC: 02100Z9 Bypass Coronary Artery, One Artery from Left Internal Mammary, Open Approach (ICD-10-PCS; principal; 2017-05-31 08:00)
DX: I25.119 Atherosclerotic heart disease of native coronary artery with unspecified angina pectoris (principal); J95.821 Acute postprocedural respiratory failure; J44.9 Chronic obstructive pulmonary disease, unspecified; E66.01 Morbid (severe) obesity due to excess calories; J95.89 Other postprocedural complications and disorders of respiratory system, not elsewhere classified; J98.11 Atelectasis; E11.65 Type 2 diabetes mellitus with hyperglycemia; I10 Essential (primary) hypertension; D64.9 Anemia, unspecified; E78.5 Hyperlipidemia, unspecified; F17.201 Nicotine dependence, unspecified, in remission; I08.0 Rheumatic disorders of both mitral and aortic valves; I25.2 Old myocardial infarction; I65.29 Occlusion and stenosis of unspecified carotid artery; K21.9 Gastro-esophageal reflux disease without esophagitis; K59.00 Constipation, unspecified; L50.9 Urticaria, unspecified; M19.90 Unspecified osteoarthritis, unspecified site; Z79.02 Long term (current) use of antithrombotics/antiplatelets; Z79.82 Long term (current) use of aspirin; Z79.899 Other long term (current) drug therapy; Z82.49 Family history of ischemic heart disease and other diseases of the circulatory system; Z88.6 Allergy status to analgesic agent; Z88.2 Allergy status to sulfonamides; Z88.0 Allergy status to penicillin
CPT/HCPCS: 36415; 70498; 71010; 71020; 80048; 80051; 80053; 82330; 82565; 82805; 83036; 83735; 84100; 84132; 84520; 85025; 85027; 85520; 85610; 85730; 86850; 86891; 86900; 86901; 86920; 90686; 90732; 93923; 94002; 94003; 94640

== ENCOUNTER → 2017-12-23 | Outpatient (CLI) | payer MEDICARE ==
[2017-12-23 16:52] LABS: Blood Urea Nitrogen 20 mg/dL (9-20)
--- NOTE | 2017-12-24 08:43 | CT ---
EXAMINATION TYPE: CT angio neck DATE OF EXAM: 12/23/2017 HISTORY: Carotid stenosis, prior abnormal CT. COMPARISON: CTA neck May 28, 2017 CT DLP: 563.9 mGycm. Automated Exposure Control for Dose Reduction was Utilized. TECHNIQUE: CTA scan of the neck is performed with IV Contrast, patient injected with 65 mL of Isovue 370, axial images are obtained, coronal and sagittal reformatted images are reviewed. Three-D recons tructed images are created on an independent workstation and reviewed. FINDINGS: Carotid/Vascular Structures: Bovine-type aortic arch is redemonstrated. There is persistent mild mixe d plaque in the aortic arch. Right subclavian artery shows mild peripheral calcified plaque. No signi ficant stenosis is seen in either subclavian artery. No significant change from prior. The right common carotid artery redemonstrates normal origin from right brachiocephalic artery. There is redemonstration of mild to moderate mixed plaque in the distal aspects of right common carotid ar manish. There is persistent more severe mixed plaque at right carotid bulb extending into proximal inte rnal carotid artery with increasing stenosis in the proximal internal carotid artery felt present. De gree of stenosis is up to 2.2 mm on raw data image 634. Computer calculates narrowing up to 2.1 mm. L umen diameter distal to this is 6.3 mm. Degree of diameter stenosis is now calculated 66%. Findings e codi appear more prominent on review of raw data 1 mm cuts.There is patent right external carotid rayne ry without significant stenosis. Moderate to severe calcified plaque supraclinoid segment is redemons trated felt stable. There is no significant plaque in the left common carotid artery. There is redemonstration of moderat e to severe mixed plaque at left carotid bulb extending into proximal internal and external carotid a rteries. There is persistent moderate calcified plaque supraclinoid segment. Lumen diameter is narrow ed up to 2.6 mm on raw data image 613. Computer calculates lumen diameter narrowing to 2.5 mm. Lumen diameter expands to 4.8 mm superior to this. The diameter stenosis is best calculated at 48% on today 's study. There is patent left external carotid artery without significant stenosis. Vertebral arteries are patent to basilar junction. There is mild calcified plaque distal right verteb ral artery redemonstrated felt stable. No significant stenosis is seen. Slight tortuous course to bas ilar artery is redemonstrated. Other: There is persistent straightening of the cervical spine with mild to moderate multilevel disc space narrowing and spurring most prominent C5-C6 and C6-C7 levels. C5-C6 and C6-C7 level show spur d isc complexes effacing anterior thecal sac on axial image 50 and 45 respectively. Multilevel uncovert ebral facet arthropathy is redemonstrated. There is partial visualization of post CABG changes with sternal wires and mediastinal clips seen. IMPRESSION: Persistent moderate to severe atherotic change bilaterally centered at carotid bulbs exte nding into proximal internal carotid arteries. On today's exam, right internal carotid artery narrowi ng is calculated at 68%, I believe is at least 68% may be 70-80% on gross visualization, slightly mor e prominent than prior. Left external carotid artery is calculated at 50% stenosis on today's study a nd is felt overall likely stable from prior exam slightly less prominent than opposite right side. Va scular surgical referral advised particularly for the slightly more suspicious for right internal car otid artery.
== END | disposition home or self-care (01) ==
LOC: RADCTMAIN 16:11
PROVIDERS: ATTEND Internal Medicine Cardiovascular Disease
DX: I65.22 Occlusion and stenosis of left carotid artery (principal)
CPT/HCPCS: 82565; 84520; 70498; 36415; Q9967

== ENCOUNTER 2019-02-28 09:28 | Day surgery (SDC) | payer MEDICARE ==
[2019-02-24 10:34] VITALS: BMI 40.6
[~2019-02-28 09:28] MED LIST changes: -ALBUMIN HUMAN 25% 50 ML IV ONE; -ALBUMIN HUMAN 5% 500 ML IVPB ONE; +ALPRAZolam 0.25 MG TAB PO PRN; +ASPIRIN 325 MG TAB PO STA; -ATORVASTATIN 10 MG TAB PO ONE; -CALCIUM CHLORIDE 100 MG/ML 10 ML SYRINGE IV ONE; -CHLORHEXIDINE GLUCONATE 15 ML CUP MUCOUS MEM ONE; -CLEVIDIPINE BUTYRATE 25 MG in EMPTY BAG 1 BAG IV ONE; -DEXTROSE 5% IN WATER 1,000 ML with POTASSIUM CHLORIDE 110 MEQ, MAGNESIUM SULFATE 16 MEQ... IV ONE; -DEXTROSE 5% IN WATER 1,000 ML with POTASSIUM CHLORIDE 25 MEQ, SODIUM CHLORIDE 4MEQ/ML V... IV ONE; -DILTIAZEM 125 MG in SODIUM CHLORIDE 0.9% 100 ML IV ONE; -HEPARIN SODIUM 1,000 UN/ML (10ML VL) IV ONE; -HEPARIN SODIUM,PORCINE 5,000 UNIT in SODIUM CHLORIDE 0.9% 500 ML IV ONE; -INSULIN REGULAR 100 UNIT in SODIUM CHLORIDE 0.9% 100 ML IV ONE; -LACTATED RINGERS 1,000 ML IV ONE; -MAGNESIUM SULFATE MG 500 MG/ML VIAL IV ONE; -MANNITOL 25% 12.5 GM/50 ML VIAL IV ONE; -METOPROLOL TARTRATE 12.5 MG TAB PO ONE; -MUPIROCIN 2% OINT 22 GM TUBE NASAL ONE; -NITROGLYCERIN SL TABS 0.4 MG TAB SUBLINGUAL ONE; -NITROGLYCERIN-D5W PMX 25 MG/250 ML BTL IV ONE; -NITROGLYCERIN-D5W PMX 50 MG in DEXTROSE/WATER 1 250ML.BAG IV ONE; -NOREPINEPHRIN 4 MG-0.9% NS PMX 4 MG/250 ML ML IV ONE; -PAPAVERINE 360 MG in SODIUM CHLORIDE 0.9% 90 ML IV ONE; -PHENYLEPHRINE 40 MG in SODIUM CHLORIDE 0.9% 250 ML IV ONE; -PHENYLEPHRINE-0.9% NACL SYG 1 MG/10 ML SYRINGE IV ONE; -PROPOFOL 1,000 MG/100 ML VIAL IV ONE; -PROTAMINE SULFATE 10 MG/ML 25 ML VIAL IV ONE; -PROTAMINE SULFATE 250 MG in EMPTY BAG 1 BAG IV ONE; -Pre Op ABX Message 1 EACH MISC MISCELLANE ONE; -SODIUM BICARB 8.4% 50 ML SYR (1 MEQ/ML) IV ONE; -SODIUM CHLORIDE 0.9% 1,000 ML IV ONE; +SODIUM CHLORIDE 0.9% 1,000 ML in EMPTY BAG 1 BAG IV ONE; -TRANEXAMIC ACID 2,000 MG in SODIUM CHLORIDE 0.9% 180 ML IV ONE; -ceFAZolin 1,000 MG in SODIUM CHLORIDE 0.9% IRRIGATIO 1,000 ML IRRIGATION ONE; -ceFAZolin 2,000 MG in SODIUM CHLORIDE 0.9% 30 ML IVPB ONE; -ceFAZolin 3 GM in SODIUM CHLORIDE 0.9% 30 ML IVPB ONE
[2019-02-28 09:54] LABS: Glucose,Whole Blood 215 mg/dL (75-99)
[2019-02-28] MEDS ORDERED: INSULIN ASPART (NovoLOG) 100 UNIT/ML VIAL SQ ONE (10:02)
[2019-02-28 10:16] LABS: African American GFR (CKD) >90 (>60 ml/min/1.73 sqM); Anion Gap 9 mmol/L; Blood Urea Nitrogen 29 mg/dL (9-20); Calcium 9.8 mg/dL (8.4-10.2); Carbon Dioxide 27 mmol/L (22-30); Chloride 102 mmol/L (98-107); Glucose 227 mg/dL (74-99); Potassium 5.3 mmol/L (3.5-5.1); Sodium 138 mmol/L (137-145)
[2019-02-28] MEDS ORDERED: IV FLUID CONTINUATION 850 ML IV ONE (12:02)
[2019-02-28] MEDS ORDERED: fentaNYL (PF) 50 MCG/ML 2 ML AMP IV ONE (12:20)
[2019-02-28] MEDS ORDERED: MIDAZOLAM (PF) 2 MG/2 ML VIAL IV ONE (12:20)
[2019-02-28] MEDS ORDERED: LIDOCAINE 1% INJ 10MG/ML (20 ML MDV) SQ ONE (12:23)
[2019-02-28] MEDS ORDERED: HEPARIN SODIUM 1,000 UN/ML (10ML VL) IV ONE (12:33)
[2019-02-28] MEDS ORDERED: IOPAMIDOL-250 50ML BTL INTRAARTER ONE (12:50)
[2019-02-28] MEDS ORDERED: IOPAMIDOL-250 100ML BTL INTRAARTER ONE (12:50)
[2019-02-28] MEDS ORDERED: SODIUM CHLORIDE 0.9% 1,000 ML IV SCH (13:15)
[2019-02-28 13:27] LABS: Glucose,Whole Blood 174 mg/dL (75-99)
--- NOTE | 2019-02-28 13:46 | IR ---
EXAMINATION TYPE: IR angio abdominal w runoff DATE OF EXAM: 02/28/2019 COMPARISON: NONE HISTORY: Fluoroscopy time. Fluoroscopy was provided to the referring clinician.
[2019-02-28 14:19] VITALS: RESP 16
[2019-02-28 18:35] VITALS: BP 122/73; PULSE 72
--- NOTE | 2019-02-28 22:07 | P.OP ---
Date of Procedure: 02/28/19 Preoperative Diagnosis: Carotid stenosis, Disabiling claudication Postoperative Diagnosis: same Procedure(s) Performed: 1. Arch angiogram with selective right and left carotid angiograms 2. Aortogram with bilateral lower extremity runoff 3. Ultrasound guided left femoral artery access Anesthesia: local, other (moderate sedation) Surgeon: Lyle Chand Estimated Blood Loss (ml): 5 Pathology: none sent Condition: stable Disposition: PACU Indications for Procedure: 68 year old male with history of carotid stenosis seen on carotid doppler and CTA of the neck. The doppler demonstrated 80-99% stenosis of the left ICA but CTA revealed 60% stenosis and therefore due to the discrepency he presents to the hospital for catheter directed angiogram. He denies any symptoms of TIA or stroke. Upon office visit the patient stated having pain with ambulation after 50 feet and therefore a lower extremity angiogram is planned as well. Operative Findings: Arch: Patent aortic arch without athersclerotic disease Subclavian: bilateral subclavian arteries without stenosis Carotid: right internal carotid artery with 70% stenosis, left internal carotid artery with <60% stenosis Aorta: no significant stenosis or athersclerotic disease Iliac: bilateral common, internal and external iliac arteries patent without significant stenosis Femoral: Athersclerotic disease throughout without significant stenosis bilaterally. Bilateral superficial femoral arteries with dense calcified plaque throughout without significant stenosis. There is decreased flow on the left compared to the right. Popliteal: Athersclerotic disease bilaterally without significant stenosis TPT: bilateral tibial peroneal trunk with calcified disease without significant stenosis and 3 vessel takeoff with 2 vessel runoff to ankle. Description of Procedure: After written and informed consent was obtained from the patient and all risks benefits and complications were described the patient was brought to the laboratory technical specialist and laid in a supine position. The area of the groins were prepped and draped in the usual sterile fashion. Utilizing ultrasound the left femoral artery was accessed with a multipurpose needle and a 5 [place] sheath was placed. An 035 glidewire was placed to the aortic arch followed by a pigtail catheter. Arch angiogram was then obtained. 035 glidewire was then placed and pigtail was removed and replaced with a JR4 catheter and the right and left carotid arteries were accessed and selective angiograms were obtained. Once completed the JR4 catheter was removed and replaced with a pigtail catheter and brought down to the L1 vertebrae level. Aortogram and bilateral runoff angiograms were then obtained. Once completed the guidewires, catheters and sheath were removed and pressure was placed for hemostasis.
== END 2019-02-28 18:35 | disposition home or self-care (01) ==
LOC: CATHCVL 09:28
PROVIDERS: ATTEND Surgery
DX: I65.23 Occlusion and stenosis of bilateral carotid arteries (principal); I70.213 Atherosclerosis of native arteries of extremities with intermittent claudication, bilateral legs; Z79.02 Long term (current) use of antithrombotics/antiplatelets; Z79.84 Long term (current) use of oral hypoglycemic drugs; Z79.899 Other long term (current) drug therapy; Z87.891 Personal history of nicotine dependence; Z82.49 Family history of ischemic heart disease and other diseases of the circulatory system
CPT/HCPCS: 76937; 75625; 75716; 36222; 80048; C1769 ×3; C1894; J2001; J3010; J1644; Q9966 ×2; J2250

== ENCOUNTER 2019-12-05 16:33 | Inpatient (IN) | payer MEDICARE ==
[2019-12-05] MEDS ORDERED: SODIUM CHLORIDE 0.9% 500 ML 500 ML IV STA (16:38)
[2019-12-05] MEDS ORDERED: LORazepam 2 MG/ML INJ IV STA (16:39)
[2019-12-05] MEDS ORDERED: ONDANSETRON 4 MG/2 ML VIAL IVP STA (16:39)
[2019-12-05] MEDS ORDERED: MECLIZINE 12.5 MG TAB PO STA (16:39)
[2019-12-05 16:48] LABS: Basophils # (A) 0.1 k/uL (0-0.2); Basophils % (A) 1 %; Eosinophils # (A) 0.2 k/uL (0-0.7); Eosinophils % (A) 2 %; HGB 14.8 gm/dL (13.0-17.5); Hypochromasia Slight; Lymphocytes # (A) 2.8 k/uL (1.0-4.8); Lymphocytes % (A) 24 %; MCH 28.7 pg (25.0-35.0); MCHC 31.4 g/dL (31.0-37.0); MCV 91.2 fL (80.0-100.0); Mean Platelet Volume 7.2; Monocytes # (A) 0.5 k/uL (0-1.0); Monocytes % (A) 4 %; Neutrophils % (A) 67 %; Platelet Count 297 k/uL (150-450); RBC 5.16 m/uL (4.30-5.90); RDW 15.6 % (11.5-15.5); WBC 11.9 k/uL (3.8-10.6)
[2019-12-05 17:01] LABS: Prothrombin Time 10.4 sec (9.0-12.0)
[2019-12-05 17:04] LABS: ALT 20 U/L (4-49); AST 35 U/L (17-59); African American GFR (CKD) >90 (>60 ml/min/1.73 sqM); Albumin 4.6 g/dL (3.5-5.0); Alkaline Phosphatase 66 U/L (38-126); Anion Gap 10 mmol/L; Blood Urea Nitrogen 34 mg/dL (9-20); Calcium 10.5 mg/dL (8.4-10.2); Carbon Dioxide 27 mmol/L (22-30); Chloride 100 mmol/L (98-107); Glucose 317 mg/dL (74-99); Magnesium 1.8 mg/dL (1.6-2.3); Non-African American GFR(CKD) 88 (>60 ml/min/1.73 sqM); Potassium 5.3 mmol/L (3.5-5.1); Sodium 137 mmol/L (137-145); Total Bilirubin 0.6 mg/dL (0.2-1.3); Total Protein 8.4 g/dL (6.3-8.2)
--- NOTE | 2019-12-05 17:05 | ED ---
General Adult HPI - General Stated complaint: Dizziness Time Seen by Provider: 12/05/19 16:35 Source: patient, EMS, RN notes reviewed, old records reviewed Mode of arrival: EMS Limitations: no limitations - History of Present Illness Initial comments: 69-year-old male with history of CAD diabetes presenting with sudden onsets dizziness and vomiting. He was in his usual state of health proximally one hour prior to arrival he became very lightheaded and dizzy had several episodes of vomiting. He was transported by EMS and given Zofran in route with some improvement in symptoms. He was found to be pale and diaphoretic. He has no complaints of chest pain or dyspnea. No abdominal pain. He has known history of carotid stenosis and is currently awaiting surgical evaluation. He denies focal numbness or weakness. Denies headache. His checked his blood sugar at home and it was 300 and she administered insulin prior to departing with EMS. - Related Data Home Medications Medication Instructions Recorded Confirmed Metoprolol Tartrate [Lopressor] 50 mg PO BID 02/24/19 12/05/19 Azithromycin [Zithromax Z-pack] See Taper PO DIRECTED 12/05/19 12/05/19 Insulin Detemir (Levemir) [Levemir] 50 unit SQ BID 12/05/19 12/05/19 Lisinopril 45 mg PO BID 12/05/19 12/05/19 clonazePAM 0.5 mg PO HS PRN 12/05/19 12/05/19 Previous Rx's Medication Instructions Recorded Clopidogrel [Plavix] 75 mg PO DAILY #30 tab 06/07/17 Allergies Allergy/AdvReac Type Severity Reaction Status Date / Time Penicillins Allergy Rash/Hives Verified 12/05/19 17:45 Sulfa (Sulfonamide Allergy Rash/Hives Verified 12/05/19 17:45 Antibiotics) tetracycline Allergy Rash/Hives Verified 12/05/19 17:45 aspirin AdvReac Rash/Hives Verified 12/05/19 17:45 Review of Systems ROS Statement: Those systems with pertinent positive or pertinent negative responses have been documented in the HPI. ROS Other: All systems not noted in ROS Statement are negative. Past Medical History Past Medical History: Coronary Artery Disease (CAD), Chest Pain / Angina, COPD, Diabetes Mellitus, Hyperlipidemia, Hypertension, Myocardial Infarction (MD), Osteoarthritis (OA) Additional Past Medical History / Comment(s): obesity, OA BACK. MONITORING OF CAROTID ARTERIES. Last Myocardial Infarction Date:: 2012 History of Any Multi-Drug Resistant Organisms: None Reported Past Surgical History: Appendectomy, Heart Catheterization, Heart Catheterization With Stent Additional Past Surgical History / Comment(s): appendectomy at age 16; cardiac stents x2, recent cardiac cath. QUAD CABG 2017. HEMORRHOIDS. Past Anesthesia/Blood Transfusion Reactions: No Reported Reaction Date of Last Stent Placement:: 2012 Past Psychological History: No Psychological Hx Reported Smoking Status: Former smoker Past Alcohol Use History: None Reported Past Drug Use History: None Reported - Past Family History Father Family Medical History: Coronary Artery Disease (CAD) Mother Family Medical History: Cancer, Renal Disease Brother(s) Family Medical History: Cancer Sister(s) Family Medical History: No Reported History Son(s) Family Medical History: Cancer (patient has biological son and a stepson his biological son had thyroid cancer.) General Exam Limitations: no limitations General appearance: alert Head exam: Present: atraumatic, normocephalic Eye exam: Present: normal appearance, PERRL, nystagmus (Horizontal nystagmus) ENT exam: Present: mucous membranes dry Neck exam: Present: normal inspection. Absent: tenderness, meningismus Respiratory exam: Present: normal lung sounds bilaterally. Absent: respiratory distress, wheezes Cardiovascular Exam: Present: regular rate, normal rhythm GI/Abdominal exam: Present: soft, distended. Absent: tenderness, guarding, rebound Extremities exam: Present: normal inspection, normal capillary refill Neurological exam: Present: alert, oriented X3, CN II-XII intact. Absent: motor sensory deficit (No focal findings, no ataxia, normal finger to nose bilaterally) Psychiatric exam: Present: normal affect, normal mood Skin exam: Present: warm, diaphoretic, pallor Course Vital Signs 12/05/19 12/05/19 12/05/19 16:36 17:40 19:02 Temperature 98.1 F Pulse Rate 94 83 Respiratory 20 16 Rate Blood Pressure 184/79 164/94 O2 Sat by Pulse 86 L 98 Oximetry EKG Findings - EKG Comments: EKG Findings:: EKG: Normal sinus rhythm possible left atrial enlargement, rate of 83, W[place] interval 184, QRS duration 80, QTC 448, no ST segment elevation. Medical Decision Making - Medical Decision Making 69-year-old male with sudden onset vertigo, nausea vomiting. Patient has normal strength throughout upper and lower extremities. Normal finger to nose bilaterally. He has horizontal nystagmus. Workup in the emergency department reveals mild leukocytosis, stable hemoglobin, blood sugar is elevated at 317, no other electrolyte abnormalities. EKG showing sinus rhythm. Chest x-ray negative for acute cardiopulmonary disease. Head CT showed chronic ischemic changes with no acute intracranial hemorrhage or mass effect. Patient is currently on Plavix and he did take this medication today. He remains symptomatic in the emergency department. He will be admitted for symptom control. MRI will be performed to evaluate for posterior circulation infarct. Neurology has been placed on consult. I discussed the case with the admitting physician Dr. Hoang. - Lab Data Result diagrams: 12/05/19 16:39 12/05/19 16:39 Lab Results 12/05/19 12/05/19 12/05/19 Range/Units 16:39 16:39 16:39 WBC 11.9 H (3.8-10.6) k/uL RBC 5.16 (4.30-5.90) m/uL Hgb 14.8 (13.0-17.5) gm/dL Hct 47.0 (39.0-53.0) % MCV 91.2 (80.0-100.0) fL MCH 28.7 (25.0-35.0) pg MCHC 31.4 (31.0-37.0) g/dL RDW 15.6 H (11.5-15.5) % Plt Count 297 (150-450) k/uL Neutrophils % 67 % Lymphocytes % 24 % Monocytes % 4 % Eosinophils % 2 % Basophils % 1 % Neutrophils # 8.0 H (1.3-7.7) k/uL Lymphocytes # 2.8 (1.0-4.8) k/uL Monocytes # 0.5 (0-1.0) k/uL Eosinophils # 0.2 (0-0.7) k/uL Basophils # 0.1 (0-0.2) k/uL Hypochromasia Slight PT 10.4 (9.0-12.0) sec INR 1.0 (<1.2) APTT 23.0 (22.0-30.0) sec Sodium 137 (137-145) mmol/L Potassium 5.3 H (3.5-5.1) mmol/L Chloride 100 (98-107) mmol/L Carbon Dioxide 27 (22-30) mmol/L Anion Gap 10 mmol/L BUN 34 H (9-20) mg/dL Creatinine 0.87 (0.66-1.25) mg/dL Est GFR (CKD-EPI)AfAm >90 (>60 ml/min/1.73 sqM) Est GFR (CKD-EPI)NonAf 88 (>60 ml/min/1.73 sqM) Glucose 317 H (74-99) mg/dL Calcium 10.5 H (8.4-10.2) mg/dL Magnesium 1.8 (1.6-2.3) mg/dL Total Bilirubin 0.6 (0.2-1.3) mg/dL AST 35 (17-59) U/L ALT 20 (4-49) U/L Alkaline Phosphatase 66 (38-126) U/L Troponin I (0.000-0.034) ng/mL Total Protein 8.4 H (6.3-8.2) g/dL Albumin 4.6 (3.5-5.0) g/dL Lipase 326 H (23-300) U/L Urine Color Urine Appearance (Clear) Urine pH (5.0-8.0) Ur Specific [place] (1.001-1.035) Urine Protein (Negative) Urine Glucose (UA) (Negative) Urine Ketones (Negative) Urine Blood (Negative) Urine Nitrite (Negative) Urine Bilirubin (Negative) Urine Urobilinogen (<2.0) mg/dL Ur Leukocyte Esterase (Negative) 12/05/19 12/05/19 Range/Units 16:39 18:45 WBC (3.8-10.6) k/uL RBC (4.30-5.90) m/uL Hgb (13.0-17.5) gm/dL Hct (39.0-53.0) % MCV (80.0-100.0) fL MCH (25.0-35.0) pg MCHC (31.0-37.0) g/dL RDW (11.5-15.5) % Plt Count (150-450) k/uL Neutrophils % % Lymphocytes % % Monocytes % % Eosinophils % % Basophils % % Neutrophils # (1.3-7.7) k/uL Lymphocytes # (1.0-4.8) k/uL Monocytes # (0-1.0) k/uL Eosinophils # (0-0.7) k/uL Basophils # (0-0.2) k/uL Hypochromasia PT (9.0-12.0) sec INR (<1.2) APTT (22.0-30.0) sec Sodium (137-145) mmol/L Potassium (3.5-5.1) mmol/L Chloride (98-107) mmol/L Carbon Dioxide (22-30) mmol/L Anion Gap mmol/L BUN (9-20) mg/dL Creatinine (0.66-1.25) mg/dL Est GFR (CKD-EPI)AfAm (>60 ml/min/1.73 sqM) Est GFR (CKD-EPI)NonAf (>60 ml/min/1.73 sqM) Glucose (74-99) mg/dL Calcium (8.4-10.2) mg/dL Magnesium (1.6-2.3) mg/dL Total Bilirubin (0.2-1.3) mg/dL AST (17-59) U/L ALT (4-49) U/L Alkaline Phosphatase (38-126) U/L Troponin I <0.012 (0.000-0.034) ng/mL Total Protein (6.3-8.2) g/dL Albumin (3.5-5.0) g/dL Lipase (23-300) U/L Urine Color Yellow Urine Appearance Clear (Clear) Urine pH 5.0 (5.0-8.0) Ur Specific [place] 1.020 (1.001-1.035) Urine Protein Negative (Negative) Urine Glucose (UA) 4+ H (Negative) Urine Ketones Negative (Negative) Urine Blood Negative (Negative) Urine Nitrite Negative (Negative) Urine Bilirubin Negative (Negative) Urine Urobilinogen <2.0 (<2.0) mg/dL Ur Leukocyte Esterase Negative (Negative) Disposition Clinical Impression: Diabetes, Vertigo Disposition: ADMITTED IP TO THIS [facility] Condition: Stable Is patient prescribed a controlled substance at d/c from ED?: No Referrals: David Palomares MD [Primary Care Provider] - 1-2 days Decision to Admit Reason: Admit from EC Decision Date: 12/05/19 Decision Time: 19:17
--- NOTE | 2019-12-05 17:37 | XR ---
EXAMINATION TYPE: XR chest 2V DATE OF EXAM: 12/05/2019 COMPARISON: 06/07/2017 HISTORY: Shortness of breath TECHNIQUE: Frontal and lateral views of the chest are obtained. FINDINGS: Scattered senescent parenchymal changes noted. No evidence for infiltrate. No evidence for atelectasis. Heart size is stable. Mediastinal structures are stable and grossly unremarkable. No evidence for hilar prominence. Degenerative changes dorsal spine. IMPRESSION: 1. No evidence for acute pulmonary disease.
--- NOTE | 2019-12-05 17:48 | CT ---
EXAMINATION TYPE: CT brain wo con DATE OF EXAM: 12/05/2019 COMPARISON: None HISTORY: Dizziness, vomiting. CT DLP: 1137.[address] of the brain was performed. The ventricles, basal cisterns and sulci overlying the cerebral convexities demonstrate mild enlargem ent. There is no evidence for intracranial hemorrhage or sulcal effacement. There is decreased attenuation about the periventricular white matter and deep white matter of both c erebral hemispheres, compatible with chronic small vessel ischemia. Differential diagnosis does inclu de demyelination. No mass effects are seen.No midline shift. Osseous calvarium is intact. If symptoms persist consider MRI. IMPRESSION: 1. Age related atrophic and chronic small vessel ischemic change without acute intracranial process s een at this time.
[2019-12-05 19:11] LABS: Appearance,Urine Clear (Clear); Bilirubin,Urine Negative (Negative); Blood,Urine Negative (Negative); Color,Urine Yellow; Glucose,Urine (UA) 4+ (Negative); Ketones,Urine Negative (Negative); Leukocyte Esterase,Urine Negative (Negative); Nitrite,Urine Negative (Negative); Protein,Urine Negative (Negative); Urobilinogen,Urine <2.0 mg/dL (<2.0)
[2019-12-05] MEDS ORDERED: ACETAMINOPHEN TAB 325 MG TAB PO PRN (19:12)
[2019-12-05] MEDS ORDERED: clonazePAM 0.5 MG TAB PO PRN (19:14)
[2019-12-05 20:36] LABS: Glucose,Whole Blood 294 mg/dL (75-99)
[2019-12-05] MEDS: INSULIN DETEMIR (LEVEMIR) 100 UNIT/ML SYR SQ SCH (21:15)
[2019-12-05] MEDS: SODIUM CHLORIDE 0.9% 1,000 ML IV SCH (21:15)
[2019-12-05] MEDS: ENOXAPARIN 40 MG/0.4 ML SYRINGE SQ SCH (21:15)
[2019-12-05] MEDS: ONDANSETRON 4 MG/2 ML VIAL IVP PRN (21:16)
[2019-12-05] MEDS: MECLIZINE 25 MG TAB PO PRN (21:16)
[2019-12-05] MEDS: METOPROLOL TARTRATE 50 MG TAB PO SCH (21:16)
[2019-12-05] MEDS: LISINOPRIL 10 MG TAB PO SCH (21:16)
[2019-12-06 06:07] LABS: Glucose,Whole Blood 279 mg/dL (75-99)
[2019-12-06 06:15] LABS: Cholesterol 235 mg/dL (<200); HDL Cholesterol 24 mg/dL (40-60)
[2019-12-06 06:32] LABS: Triglycerides 840 mg/dL (<150)
[2019-12-06] MEDS: SODIUM CHLORIDE 0.9% 1,000 ML IV SCH ×2 (06:34→16:38)
[2019-12-06 08:13] LABS: Glucose,Whole Blood 276 mg/dL (75-99)
[2019-12-06] MEDS: LISINOPRIL 10 MG TAB PO SCH ×2 (08:59→21:45)
[2019-12-06] MEDS: INSULIN DETEMIR (LEVEMIR) 100 UNIT/ML SYR SQ SCH ×2 (09:00→21:46)
[2019-12-06] MEDS: METOPROLOL TARTRATE 50 MG TAB PO SCH ×2 (09:00→21:45)
[2019-12-06] MEDS: CLOPIDOGREL 75 MG TAB PO SCH (09:00)
--- NOTE | 2019-12-06 09:00 | ECHOF ---
Referral Reason:Thrombus MEASUREMENTS -------- HEIGHT: 182.9 cm WEIGHT: 145.6 kg BP: 144/66 RVIDd: 3.9 cm (< 3.3) IVSd: 1.4 cm (0.6 - 1.1) LVIDd: 5.3 cm (3.9 - 5.3) LVPWd: 1.6 cm (0.6 - 1.1) IVSs: 2.0 cm LVIDs: 3.9 cm LVPWs: 1.8 cm LA Diam: 4.0 cm (2.7 - 3.8) LAESV Index (A-L): 25.53 ml/m Ao Diam: 4.0 cm (2.0 - 3.7) AV Cusp: 2.8 cm (1.5 - 2.6) MV EXCURSION: 12.364 mm (> 18.000) MV EF SLOPE: 32 mm/s (70 - 150) EPSS: 0.5 cm MV E Franco: 1.36 m/s MV DecT: 185 ms MV A Franco: 1.24 m/s MV E/A Ratio: 1.10 RAP: 5.00 mmHg RVSP: 37.37 mmHg FINDINGS -------- Sinus rhythm. This was a technically difficult study with suboptimal apical views. The left ventricular size is normal. There is moderate concentric left ventricular hypertrophy. O verall left ventricular systolic function is normal with, an EF between 55 - 60 %. The right ventricle is mild to moderately enlarged. Normal LA size by volume 22+/-6 ml/m2. The right atrial size is normal. 5.0mg of Lumason was utilized for enhancement of images There is mild aortic valve sclerosis. Mild mitral annular calcification present. There is trace mitral regurgitation. Mild tricuspid regurgitation present. There is mild pulmonary hypertension. The right ventricular systolic pressure, as measured by Doppler, is 37.37mmHg. Trace/mild (physiologic) pulmonic regurgitation. The aortic root is mildy dilated. IVC Not well visulized. There is no pericardial effusion. CONCLUSIONS -------- 1. There is moderate concentric left ventricular hypertrophy. 2. Overall left ventricular systolic function is normal with, an EF between 55 - 60 %. 3. The right ventricle is mild to moderately enlarged. 4. Normal LA size by volume 22+/-6 ml/m2. 5. 5.0mg of Lumason was utilized for enhancement of images 6. There is mild aortic valve sclerosis. 7. Mild mitral annular calcification present. 8. There is trace mitral regurgitation. 9. Mild tricuspid regurgitation present. 10. There is mild pulmonary hypertension. 11. Trace/mild (physiologic) pulmonic regurgitation. 12. The aortic root is mildy dilated. [employer]ER: Samanta Jeter RDCS
[2019-12-06 11:37] LABS: Glucose,Whole Blood 306 mg/dL (75-99)
[2019-12-06 13:57] LABS: T4, Free (Free Thyroxine) 1.12 ng/dL (0.78-2.19)
[2019-12-06 16:25] LABS: Glucose,Whole Blood 272 mg/dL (75-99)
[2019-12-06] MEDS: ONDANSETRON 4 MG/2 ML VIAL IVP PRN (16:39)
[2019-12-06] MEDS: MECLIZINE 25 MG TAB PO PRN (16:39)
--- NOTE | 2019-12-06 16:41 | P.CNNES ---
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 He sat in the chair and then he broke in sweat in room started spinning. He got up and almost fell over. He sat down. He started having nausea vomiting. Patient came to the ER and arrived at 4:33 PM. Patient's blood pressure on arrival was 184/79, pulse rate 94, temperature 98.1. Patient underwent CT head revealed age-related atrophic and chronic small vessel ischemic changes without acute intracranial process. The visualized paranasal sinuses and external auditory canal appears clear. EKG shows normal sinus rhythm. 2-D echo revealed moderate concentric LVH, EF 55-60%. Normal left atrial size. Mild aortic valve sclerosis. Aortic root is mildly dilated. Patient's blood test shows WBC 11.9 hemoglobin 14.8 and platelets 297. PT/PTT normal, sodium 137 potassium 5.3, BUN 34 creatinine 0.87. Total cholesterol 235, HDL 24 and triglycerides 840. Patient's previous hemoglobin A1c 9.7 on 06/03/2017. Patient's previous CTA of head and neck from 12/24/2017 showed persistent moderate to severe atherosclerotic changes bilaterally centered at carotid bulbs extending into proximal internal carotid arteries. Right ICA narrowing is Limited at 68%. Although it was felt by the radiologist that may be 70-80%. Patient continues to feel dizzy, particularly when he gets up and moves. Patient denies any numbness tingling focal weakness, diplopia, vision loss or hearing loss. Denies any problems with coordination of extremities or balance. Patient states that about 2-1/2 weeks ago he had suffered from sore throat and pain in the left ear, that lasted for 2 days. He has been having lightheadedness lately. Patient also has history of carotid stenosis for which patient was scheduled for right CEA, but has been postponed due to pandemic. Patient has history of diabetes for 4 years, hyperlipidemia. Patient says that he was tried on Lipitor but develops severe leg cramps. He has also tried couple other statins and he could not tolerate it. Review of Systems As above in detail. Patient states that he does get dizzy sometimes but nothing like what he experienced now. Past Medical History Past Medical History: Coronary Artery Disease (CAD), Chest Pain / Angina, COPD, Diabetes Mellitus, Hyperlipidemia, Hypertension, Myocardial Infarction ([place]), Osteoarthritis (OA) Additional Past Medical History / Comment(s): obesity, OA BACK. MONITORING OF CAROTID ARTERIES. Last Myocardial Infarction Date:: 2012 History of Any Multi-Drug Resistant Organisms: None Reported Past Surgical History: Appendectomy, Heart Catheterization, Heart Catheterization With Stent Additional Past Surgical History / Comment(s): appendectomy at age 16; cardiac stents x2, recent cardiac cath. QUAD CABG 2017. HEMORRHOIDS. Past Anesthesia/Blood Transfusion Reactions: No Reported Reaction Date of Last Stent Placement:: 2012 Past Psychological History: No Psychological Hx Reported Smoking Status: Former smoker Past Alcohol Use History: None Reported Additional Past Alcohol Use History / Comment(s): quit smoking 1996, smoked 1ppd for 30 yrs. Past Drug Use History: None Reported - Past Family History Father Family Medical History: Coronary Artery Disease (CAD) Mother Family Medical History: Cancer, Renal Disease Brother(s) Family Medical History: Cancer Sister(s) Family Medical History: No Reported History Son(s) Family Medical History: Cancer (patient has biological son and a stepson his biological son had thyroid cancer.) Medications and Allergies Home Medications Medication Instructions Recorded Confirmed Type Clopidogrel [Plavix] 75 mg PO DAILY #30 tab 06/07/17 12/05/19 Rx Metoprolol Tartrate [Lopressor] 50 mg PO BID 02/24/19 12/05/19 History Azithromycin [Zithromax Z-pack] See Taper PO DIRECTED 12/05/19 12/05/19 History Insulin Detemir (Levemir) [Levemir] 50 unit SQ BID 12/05/19 12/05/19 History Lisinopril 45 mg PO BID 12/05/19 12/05/19 History clonazePAM 0.5 mg PO HS PRN 12/05/19 12/05/19 History Allergies Allergy/AdvReac Type Severity Reaction Status Date / Time Penicillins Allergy Rash/Hives Verified 12/05/19 17:45 Sulfa (Sulfonamide Allergy Rash/Hives Verified 12/05/19 17:45 Antibiotics) tetracycline Allergy Rash/Hives Verified 12/05/19 17:45 aspirin AdvReac Rash/Hives Verified 12/05/19 17:45 Physical Examination - Vital Signs Vital Signs: Vital Signs Temp Pulse Pulse Resp BP BP Pulse Ox 12/06/19 08:57 98.5 F 75 18 155/74 91 L 12/06/19 04:00 98.4 F 77 18 144/66 94 L 12/05/19 23:42 88 18 12/05/19 23:40 97.6 F 88 18 138/79 95 12/05/19 20:35 97.8 F 85 18 153/81 92 L 12/05/19 20:33 85 18 12/05/19 20:01 98.3 F 81 16 154/81 97 12/05/19 19:02 164/94 98 12/05/19 17:40 83 16 12/05/19 16:36 98.1 F 94 20 184/79 86 L Intake and Output 12/05/19 12/06/19 12/06/19 22:59 06:59 14:59 Intake Total 1000 800 Output Total 975 Balance 1000 -175 Intake: Amount of Fluid Infused ( 1000 ml) Intake, IV Titration 800 Amount Sodium Chloride 0.9% 1, 800 000 ml @ 100 mls/hr IV . Q10H [facility] Rx#:[id number] Output: Urine 975 Other: Voiding Method Urinal Urinal # Voids 1 Weight 131.542 kg 146 kg On examination patient is an elderly male, in no distress. Patient is alert and awake oriented to time place and person. Speech and language functions are normal. Attention, concentration fund of knowledge is adequate. On cranial nerve examination pupils are round and reacting to light, visual waite are full on confrontation. Extraocular muscles are intact with mild coarse nystagmus looking to the right side only. Face is symmetric and tongue protrudes the midline. Palatal elevation and sensation normal. On muscle strength testing there is no pronator drift and the strength is normal in arms and legs or face is symmetric and plantars downgoing. Sensory touch is equal. No ataxia for [id number] testing. Tone and bulk of muscles normal. No carotid bruit, S1 and S2 audible. Mild peripheral edema. Results - Laboratory Findings CBC and BMP: 12/05/19 16:39 04/14/20 16:39 Abnormal Lab Findings: Abnormal Labs 12/05/19 12/05/19 12/05/19 16:39 16:39 18:45 WBC 11.9 H RDW 15.6 H Neutrophils # 8.0 H Potassium 5.3 H BUN 34 H Glucose 317 H POC Glucose (mg/dL) Calcium 10.5 H Total Protein 8.4 H Triglycerides Cholesterol HDL Cholesterol Lipase 326 H Urine Glucose (UA) 4+ H 12/05/19 12/06/19 12/06/19 20:35 05:09 06:06 WBC RDW Neutrophils # Potassium BUN Glucose POC Glucose (mg/dL) 294 H 279 H Calcium Total Protein Triglycerides 840 H Cholesterol 235 H HDL Cholesterol 24 L Lipase Urine Glucose (UA) 12/06/19 12/06/19 08:12 11:36 WBC RDW Neutrophils # Potassium BUN Glucose POC Glucose (mg/dL) 276 H 306 H Calcium Total Protein Triglycerides Cholesterol HDL Cholesterol Lipase Urine Glucose (UA) Assessment and Plan Assessment: * Probable viral labyrinthitis. Doubt CVA/TIA. Patient has history of sore throat and left ear pain 2 weeks ago, that lasted for a couple days. Examination only significant for right-sided nystagmus. No ataxia of the extremities. * Hypertension * Hyperlipidemia, and hypertriglyceridemia not being treated. * Obesity * Diabetes Plan: * MRI of the brain, MRA of head and neck were ordered. However patient's body habitus precludes MR testing. * We will check carotid Doppler. * Hemoglobin A1c. * Continue Plavix 75 mg daily. * Patient has significant hyperlipidemia, hypertriglyceridemia. I would recommend starting statins, and treatment of hypertriglyceridemia. Patient claims he has side effects "severe leg cramps" from statins. I would defer to internal medicine for treatment of dyslipidemia. * Blood pressure is better controlled now. * Patient receiving Zofran for nausea and Antivert for vertigo. * Neurologically clear for discharge, if carotid Doppler comes back negative and patient's symptoms stabilizes.
--- NOTE | 2019-12-06 18:09 | P.HPIM ---
History of Present Illness H&P Date: 12/06/19 Chief Complaint: Room spinning History of presenting complaint: This is a very pleasant [address] Palomares. Chronic stable medical conditions include coronary artery disease, COPD, diabetes, hypertension, hyperlipidemia, osteoarthritis obesity. Patient has known carotid artery disease. Has prior cardiac stents. Yesterday was fixing something then he became lightheaded side of her chair protocol with a cold sweat. That became dizzy and improved status fifths spinning around and nearly fell down. Never passed out. Also developed nausea. Feeling somewhat better. Her now back to normal. No change in speech. No focal symptoms. Initial computed tomography scan of the brain was unremarkable. Patient unable to do an MRI Review of systems: GEN.: None EYES: None HEENT: As above NECK: None RESPIRATORY: None CARDIOVASCULAR: No chest pain GASTROINTESTINAL: None GENITOURINARY: None MUSCULOSKELETAL: Back pain LYMPHATICS: None HEMATOLOGICAL: None PSYCHIATRY: None NEUROLOGICAL: As above Past medical history to include: Coronary artery disease with stent, COPD, diabetes, hyperlipidemia, hypertension, osteoarthritis, but lower back pain, carotid arteries be monitored. Social history: Patient smoked a pack a day for 30 years stopped 97. No alcohol. . 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 EYES: Pupils equal. Conjunctiva normal. HEENT: External appearance of nose and ears normal, oral cavity grossly normal. NECK: JVD not raised; masses not palpable. HEART: First and second heart sounds are normal; no edema. LUNGS:[ Respiratory rate normal; decreased breath sounds. ABDOMEN: Soft, nontender, liver spleen not palpable, no masses palpable. PSYCH: Alert and oriented x3; mood and affect normal. NEUROLOGICAL: Cranial nerves grossly intact; no facial asymmetry, power and sensation grossly intact. Possible dysdiadochokinesis on the right hand. No past pointing. Questionable nystagmus LYMPHATICS: No lymph nodes palpable in the axilla and neck INVESTIGATIONS, reviewed in the clinical context: White count 11.9 hemoglobin 14.8 potassium 5.3 creatinine 0.87 glucose 317 Triglycerides 840 total cholesterol 235 EKG tracing personally reviewed by me-sinus rhythm Chest x-ray film personally reviewed by me-slightly underpenetrated Computed tomography scan of the brain-some age-related changes Assessment: -Patient presented acute onset of vertigo with the room spinning nausea: Sweat dizzy. Possible dysdiadochokinesis on the right side. Questionable nystagmus. Initial computed tomography scan negative for cerebellar stroke. Patient cannot have an MRI -Morbid obesity BMI 43.7 -Coronary artery disease with a prior history of stent -COPD in an ex-smoker -Diabetes mellitus type 2 chronically on insulin, uncontrolled with hyperglycemia -Hyperlipidemia, uncontrolled -Essential hypertension Primary osteoarthritis Plan: Patient ALLERGIC to aspirin. Continue with Plavix. Home medications resumed. Lovenox for DVT prophylaxis. Will try Crestor 20 mg daily at bedtime. We'll do a computed tomography scan of the brain with contrast and the neck. Patient's symptoms have not completely resolved. No change in speech or swallowing. Past Medical History Past Medical History: Coronary Artery Disease (CAD), Chest Pain / Angina, COPD, Diabetes Mellitus, Hyperlipidemia, Hypertension, Myocardial Infarction (HI), Osteoarthritis (OA) Additional Past Medical History / Comment(s): obesity, OA BACK. MONITORING OF CAROTID ARTERIES. Last Myocardial Infarction Date:: 2012 History of Any Multi-Drug Resistant Organisms: None Reported Past Surgical History: Appendectomy, Heart Catheterization, Heart Catheterization With Stent Additional Past Surgical History / Comment(s): appendectomy at age 16; cardiac stents x2, recent cardiac cath. QUAD CABG 2017. HEMORRHOIDS. Past Anesthesia/Blood Transfusion Reactions: No Reported Reaction Date of Last Stent Placement:: 2012 Past Psychological History: No Psychological Hx Reported Smoking Status: Former smoker Past Alcohol Use History: None Reported Additional Past Alcohol Use History / Comment(s): quit smoking 1996, smoked 1ppd for 30 yrs. Past Drug Use History: None Reported - Past Family History Father Family Medical History: Coronary Artery Disease (CAD) Mother Family Medical History: Cancer, Renal Disease Brother(s) Family Medical History: Cancer Sister(s) Family Medical History: No Reported History Son(s) Family Medical History: Cancer (patient has biological son and a stepson his biological son had thyroid cancer.) Medications and Allergies Home Medications Medication Instructions Recorded Confirmed Type Clopidogrel [Plavix] 75 mg PO DAILY #30 tab 06/07/17 12/05/19 Rx Metoprolol Tartrate [Lopressor] 50 mg PO BID 02/24/19 12/05/19 History Azithromycin [Zithromax Z-pack] See Taper PO DIRECTED 12/05/19 12/05/19 History Insulin Detemir (Levemir) [Levemir] 50 unit SQ BID 12/05/19 12/05/19 History Lisinopril 45 mg PO BID 12/05/19 12/05/19 History clonazePAM 0.5 mg PO HS PRN 12/05/19 12/05/19 History Allergies Allergy/AdvReac Type Severity Reaction Status Date / Time Penicillins Allergy Rash/Hives Verified 12/05/19 17:45 Sulfa (Sulfonamide Allergy Rash/Hives Verified 12/05/19 17:45 Antibiotics) tetracycline Allergy Rash/Hives Verified 12/05/19 17:45 aspirin AdvReac Rash/Hives Verified 12/05/19 17:45 Physical Exam Vitals: Vital Signs Temp Pulse Pulse Resp BP BP Pulse Ox 12/06/19 08:57 98.5 F 75 18 155/74 91 L 12/06/19 04:00 98.4 F 77 18 144/66 94 L 12/05/19 23:42 88 18 12/05/19 23:40 97.6 F 88 18 138/79 95 12/05/19 20:35 97.8 F 85 18 153/81 92 L 12/05/19 20:33 85 18 12/05/19 20:01 98.3 F 81 16 154/81 97 12/05/19 19:02 164/94 98 12/05/19 17:40 83 16 12/05/19 16:36 98.1 F 94 20 184/79 86 L Intake and Output 12/05/19 12/06/19 12/06/19 22:59 06:59 14:59 Intake Total 1000 800 Output Total 975 Balance 1000 -175 Intake: Amount of Fluid Infused ( 1000 ml) Intake, IV Titration 800 Amount Sodium Chloride 0.9% 1, 800 000 ml @ 100 mls/hr IV . Q10H [facility] Rx#:[id number] Output: Urine 975 Other: Voiding Method Urinal Urinal # Voids 1 Weight 131.542 kg 146 kg Results CBC & Chem 7: 12/05/19 16:39 12/05/19 16:39 Labs: Abnormal Lab Results - Last 24 Hours (Table) 12/05/19 12/05/19 12/05/19 Range/Units 16:39 16:39 18:45 WBC 11.9 H (3.8-10.6) k/uL RDW 15.6 H (11.5-15.5) % Neutrophils # 8.0 H (1.3-7.7) k/uL Potassium 5.3 H (3.5-5.1) mmol/L BUN 34 H (9-20) mg/dL Glucose 317 H (74-99) mg/dL POC Glucose (mg/dL) (75-99) mg/dL Calcium 10.5 H (8.4-10.2) mg/dL Total Protein 8.4 H (6.3-8.2) g/dL Triglycerides (<150) mg/dL Cholesterol (<200) mg/dL HDL Cholesterol (40-60) mg/dL Lipase 326 H (23-300) U/L Urine Glucose (UA) 4+ H (Negative) 12/05/19 12/06/19 12/06/19 Range/Units 20:35 05:09 06:06 WBC (3.8-10.6) k/uL RDW (11.5-15.5) % Neutrophils # (1.3-7.7) k/uL Potassium (3.5-5.1) mmol/L BUN (9-20) mg/dL Glucose (74-99) mg/dL POC Glucose (mg/dL) 294 H 279 H (75-99) mg/dL Calcium (8.4-10.2) mg/dL Total Protein (6.3-8.2) g/dL Triglycerides 840 H (<150) mg/dL Cholesterol 235 H (<200) mg/dL HDL Cholesterol 24 L (40-60) mg/dL Lipase (23-300) U/L Urine Glucose (UA) (Negative) 12/06/19 Range/Units 08:12 WBC (3.8-10.6) k/uL RDW (11.5-15.5) % Neutrophils # (1.3-7.7) k/uL Potassium (3.5-5.1) mmol/L BUN (9-20) mg/dL Glucose (74-99) mg/dL POC Glucose (mg/dL) 276 H (75-99) mg/dL Calcium (8.4-10.2) mg/dL Total Protein (6.3-8.2) g/dL Triglycerides (<150) mg/dL Cholesterol (<200) mg/dL HDL Cholesterol (40-60) mg/dL Lipase (23-300) U/L Urine Glucose (UA) (Negative) Thrombosis Risk Factor Assmnt - Choose All That Apply Any of the Below Risk Factors Present?: Yes Each Factor Represents 1 point: Abnormal pulmonary function (COPD) Other Risk Factors: Yes Each Risk Factor Represents 2 Points: Age 61-74 years Other congenital or acquired thrombophilia - If yes, enter type in comment: No Thrombosis Risk Factor Assessment Total Risk Factor Score: 3 Thrombosis Risk Factor Assessment Level: Moderate Risk
[2019-12-06 18:29] LABS: African American GFR (CKD) >90 (>60 ml/min/1.73 sqM); Anion Gap 11 mmol/L; Blood Urea Nitrogen 33 mg/dL (9-20); Calcium 9.9 mg/dL (8.4-10.2); Carbon Dioxide 25 mmol/L (22-30); Chloride 100 mmol/L (98-107); Glucose 308 mg/dL (74-99); Non-African American GFR(CKD) 89 (>60 ml/min/1.73 sqM); Potassium 5.3 mmol/L (3.5-5.1); Sodium 136 mmol/L (137-145)
--- NOTE | 2019-12-06 18:38 | US ---
EXAMINATION TYPE: US carotid duplex BILAT DATE OF EXAM: 12/06/2019 COMPARISON: None CLINICAL HISTORY: 69-year-old male Vertigo, carotid stenosis.. Vertigo, carotid stenosis. Hx quadrupl e bypass per patient. HTN. TECHNIQUE: Carotid duplex ultrasound examination. Indirect Doppler criteria was utilized. FINDINGS: EXAM MEASUREMENTS: RIGHT: Peak Systolic Velocity (PSV) cm/sec ----- Right CCA: 84.9 ----- Right ICA: 365.8 ----- Right ECA: 209.9 ICA/CCA ratio: 4.3 RIGHT: End Diastole cm/sec ----- Right CCA: 20.2 ----- Right ICA: 130.0 ----- Right ECA: 14.8 LEFT: Peak Systolic Velocity (PSV) cm/sec ----- Left CCA: 89.4 ----- Left ICA: 158.7 ----- Left ECA: 205.2 ICA/CCA ratio: 1.8 LEFT: End Diastole cm/sec ----- Left CCA: 16.8 ----- Left ICA: 42.5 ----- Left ECA: 12.3 VERTEBRALS (direction of flow): Right Vertebral: Antegrade Left Vertebral: Antegrade Rhythm: Normal Photography Spotter notes: Hyperechoic plaque seen right mid CCA. Great amount of hyperechoic plaque seen right carotid bifurcat ion and right ICA. Hyperechoic plaque seen left carotid bifurcation. Right ICA/CCA ratio is 4.3. Elev ated velocities obtained bilateral ICA and bilateral ECA. 8 mm benign-appearing lymph node seen on the right side of the neck. Limited due to multiple episodes of patient falling asleep/snoring. IMPRESSION: 1. Measurements suggest severe, greater than 70% proximal right ICA stenosis. 2. Measurements also suggest a moderate, 50-69% proximal left ICA stenosis. Criteria for Assigning % of Stenosis / Diameter reduction (Estimation based on the indirect measurements of the internal carotid artery velocities (ICA PSV). 1. Normal (no stenosis)=ICA PSV < 125 cm/s: ratio < 2.0: ICA EDV<40 cm/s. 2. Less than 50% stenosis=ICA PSV < 125 cm/s: ratio < 2.0: ICA EDV<40 cm/s. 3. 50 to 69% stenosis=ICA PSV of 125 to 230 cm/s: ration 2.0 ? 4.0: ICA EDV 40-100 cm/s. 4. Greater than 70% stenosis to near occlusion= ICA PSV > 230 cm/s: ratio > 4.0: ICA EDV > 100 cm/s. 5. Near occlusion= ICA PSV velocities may be low or undetectable: variable ratio and ICA EDV. 6. Total occlusion=unable to detect flow.
[2019-12-06 20:31] LABS: Glucose,Whole Blood 205 mg/dL (75-99)
[2019-12-06 20:44] LABS: Hemoglobin A1C 9.6 % (4.0-6.0)
--- NOTE | 2019-12-06 21:28 | CT ---
EXAMINATION TYPE: CT angio head neck DATE OF EXAM: 12/06/2019 COMPARISON: 12/23/2017 CT angiogram of the neck HISTORY: possible cerebellar stroke CT DLP: 1000.1 mGycm Automated exposure control for dose reduction was used. CONTRAST: Performed with IV Contrast, patient injected with 65 mL of Isovue 370. There are 3-D post processed images. There is normal branching pattern of the great vessels on the aortic arch. There is bilateral arterial flow in the common internal and external carotid arteries. There is signi ficant plaque formation at the right and left carotid artery bifurcation. Estimated stenosis is more than 75%. Stenosis could be as high as 90% at the origins of both internal carotid arteries. There is arterial flow in both vertebral arteries. There is arterial flow in the vertebrobasilar artery syste m. There is arterial flow in the anterior middle and posterior cerebral arteries. I see no evidence o f intracranial arterial stenosis. There is no mass effect. There is no evidence of intracranial aneur ysm or neovascularity. There is normal contrast opacification of the venous sinuses. There is bilater al arterial flow in the posterior inferior cerebellar arteries. IMPRESSION: Moderately severe stenosis at the origins of both internal carotid arteries. No evidence of intracran ial arterial stenosis.
[2019-12-06] MEDS: ATORVASTATIN 20 MG TAB PO SCH (21:45)
[2019-12-06] MEDS: ENOXAPARIN 40 MG/0.4 ML SYRINGE SQ SCH (21:45)
[2019-12-07 05:57] LABS: Glucose,Whole Blood 111 mg/dL (75-99)
[2019-12-07 08:23] LABS: HCT 45.8 % (39.0-53.0); HGB 14.2 gm/dL (13.0-17.5); Hypochromasia Moderate; MCH 29.3 pg (25.0-35.0); MCV 94.6 fL (80.0-100.0); Mean Platelet Volume 7.2; Platelet Count 206 k/uL (150-450); RBC 4.84 m/uL (4.30-5.90); RDW 15.6 % (11.5-15.5); WBC 9.6 k/uL (3.8-10.6)
[2019-12-07 08:28] LABS: African American GFR (CKD) >90 (>60 ml/min/1.73 sqM); Anion Gap 4 mmol/L; Blood Urea Nitrogen 23 mg/dL (9-20); Calcium 9.6 mg/dL (8.4-10.2); Carbon Dioxide 33 mmol/L (22-30); Chloride 101 mmol/L (98-107); Glucose 124 mg/dL (74-99); Non-African American GFR(CKD) 86 (>60 ml/min/1.73 sqM); Potassium 4.6 mmol/L (3.5-5.1); Sodium 138 mmol/L (137-145)
[2019-12-07 10:59] LABS: Glucose,Whole Blood 144 mg/dL (75-99)
[2019-12-07] MEDS: METOPROLOL TARTRATE 50 MG TAB PO SCH ×2 (11:01→21:59)
[2019-12-07] MEDS: INSULIN DETEMIR (LEVEMIR) 100 UNIT/ML SYR SQ SCH ×2 (11:01→21:58)
[2019-12-07] MEDS: CLOPIDOGREL 75 MG TAB PO SCH (11:01)
[2019-12-07] MEDS: LISINOPRIL 10 MG TAB PO SCH ×2 (11:01→21:59)
[2019-12-07] MEDS: MECLIZINE 25 MG TAB PO PRN (11:01)
--- NOTE | 2019-12-07 13:51 | P.GSCN ---
History of Present Illness Consult date: 12/07/19 Reason for Consult: Right sided greater than 70% proximal ICA stenosis, left 50-60% proximal ICA stenosis History of present illness: This is a new consult for a 69-year-old male who is known to Dr. Chand for moderate to severe bilateral ICA stenosis. The patient was brought into the emergency room 2 days ago after having an episode of dizziness following him bending over to work on his stove. He states he had been bent over for some time working on the bottom of the stove, and when he stood up he felt very dizzy. He states he was able to go sit down, however he became diaphoretic and then started having nausea and vomiting. He denied any shortness of breath or chest pain at the time, any changes in his speech, loss of vision, or any upper or lower sided weakness. The patient has a past medical history including coronary artery disease, COPD, diabetes mellitus, hyperlipidemia, hypertension, myocardial infarction, carotid stenosis, and is morbidly obese. The patient states he has been unable to tolerate statins in the past due to leg pain and cramping. The patient was initially scheduled to have surgical intervention for bilateral carotid arteries this October, however due to the Covid-19 pandemic the surgery was postponed until further recommendations on the Covid [address] Chand performed an arch angiogram with selective right and left carotid angiograms, aortogram with bilateral lower extremity runoff, with an ultrasound- guided left femoral artery access on February 28, 2019 for carotid stenosis and di sabling claudication. The patient underwent a CT angiogram of the head and neck which showed moderately severe stenosis at the origins of both internal carotid arteries. No evidence of intracranial arterial stenosis. Ultrasound carotid duplex bilateral shows greater than 70% proximal right ICA stenosis, and 50-69% proximal left ICA stenosis. Today he continues to deny any shortness of breath, chest pain, loss of vision, changes in speech, or weakness in his upper and lower extremities. He states that this morning when he was getting out of bed, he felt slight dizziness and took a few minutes before dizziness had passed. Review of Systems A review of systems was completed, all pertinent positives and negatives as stated in the HPI. Past Medical History Past Medical History: Coronary Artery Disease (CAD), Chest Pain / Angina, COPD, Diabetes Mellitus, Hyperlipidemia, Hypertension, Myocardial Infarction ([place]), Osteoarthritis (OA) Additional Past Medical History / Comment(s): obesity, OA BACK. MONITORING OF CAROTID ARTERIES. Last Myocardial Infarction Date:: 2012 History of Any Multi-Drug Resistant Organisms: None Reported Past Surgical History: Appendectomy, Heart Catheterization, Heart Catheterization With Stent Additional Past Surgical History / Comment(s): appendectomy at age 16; cardiac stents x2, recent cardiac cath. QUAD CABG 2017. HEMORRHOIDS. Past Anesthesia/Blood Transfusion Reactions: No Reported Reaction Date of Last Stent Placement:: 2012 Past Psychological History: No Psychological Hx Reported Smoking Status: Former smoker Past Alcohol Use History: None Reported Additional Past Alcohol Use History / Comment(s): quit smoking 1996, smoked 1ppd for 30 yrs. Past Drug Use History: None Reported - Past Family History Father Family Medical History: Coronary Artery Disease (CAD) Mother Family Medical History: Cancer, Renal Disease Brother(s) Family Medical History: Cancer Sister(s) Family Medical History: No Reported History Son(s) Family Medical History: Cancer (patient has biological son and a stepson his biological son had thyroid cancer.) Medications and Allergies Home Medications Medication Instructions Recorded Confirmed Type Clopidogrel [Plavix] 75 mg PO DAILY #30 tab 06/07/17 12/05/19 Rx Metoprolol Tartrate [Lopressor] 50 mg PO BID 02/24/19 12/05/19 History Azithromycin [Zithromax Z-pack] See Taper PO DIRECTED 12/05/19 12/05/19 History Insulin Detemir (Levemir) [Levemir] 50 unit SQ BID 12/05/19 12/05/19 History Lisinopril 45 mg PO BID 12/05/19 12/05/19 History clonazePAM 0.5 mg PO HS PRN 12/05/19 12/05/19 History Allergies Allergy/AdvReac Type Severity Reaction Status Date / Time Penicillins Allergy Rash/Hives Verified 12/05/19 17:45 Sulfa (Sulfonamide Allergy Rash/Hives Verified 12/05/19 17:45 Antibiotics) tetracycline Allergy Rash/Hives Verified 12/05/19 17:45 aspirin AdvReac Rash/Hives Verified 12/05/19 17:45 Surgical - Exam Vital Signs Temp Pulse Resp BP Pulse Ox 98.1 F 94 20 184/79 86 L 12/05/19 16:36 12/05/19 16:36 12/05/19 16:36 12/05/19 16:36 12/05/19 16:36 General appearance: The patient is alert, oriented, in no acute distress. Morbidly obese HET: Head is normocephalic and atraumatic. Pupils are equal and reactive. Neck: Supple without lymphadenopathy. Trachea midline. No audible bruit bilaterally. Heart: S1 S2. Regular rate and rhythm. Lungs: Clear to auscultation bilaterally. No crackles or wheezes are heard. Abdomen: Soft, nontender, nondistended with bowel sounds. Extremities: Normal skin color and turgor. No cyanosis, rash, ulceration, clubbing, or edema. Radial pulses are 2/4 bilaterally. Patient has compression stockings on bilateral lower extremities. Palpable femoral and popliteal pulses. Neurological: No focal deficits. Strength and sensation are grossly intact. Speech is fluent, no facial as asymmetry. Results The patient underwent a CT angiogram of the head and neck which showed moderately severe stenosis at the origins of both internal carotid arteries. No evidence of intracranial arterial stenosis. Ultrasound of bilateral carotid duplex shows greater than 70% proximal right ICA stenosis, and 50-69% proximal left ICA stenosis. - Labs 12/07/19 08:00 12/07/19 08:00 Abnormal Lab Results - Last 24 Hours (Table) 12/06/19 12/06/19 12/06/19 Range/Units 05:06 07:26 07:26 RDW (11.5-15.5) % Sodium 136 L (137-145) mmol/L Potassium 5.3 H (3.5-5.1) mmol/L Carbon Dioxide (22-30) mmol/L BUN 33 H (9-20) mg/dL Glucose 308 H (74-99) mg/dL POC Glucose (mg/dL) (75-99) mg/dL Hemoglobin A1c 9.6 H (4.0-6.0) % TSH 0.252 L (0.465-4.680) mIU/L 12/06/19 12/06/19 12/07/19 Range/Units 16:23 20:29 05:55 RDW (11.5-15.5) % Sodium (137-145) mmol/L Potassium (3.5-5.1) mmol/L Carbon Dioxide (22-30) mmol/L BUN (9-20) mg/dL Glucose (74-99) mg/dL POC Glucose (mg/dL) 272 H 205 H 111 H (75-99) mg/dL Hemoglobin A1c (4.0-6.0) % TSH (0.465-4.680) mIU/L 12/07/19 12/07/19 12/07/19 Range/Units 08:00 08:00 10:58 RDW 15.6 H (11.5-15.5) % Sodium (137-145) mmol/L Potassium (3.5-5.1) mmol/L Carbon Dioxide 33 H (22-30) mmol/L BUN 23 H (9-20) mg/dL Glucose 124 H (74-99) mg/dL POC Glucose (mg/dL) 144 H (75-99) mg/dL Hemoglobin A1c (4.0-6.0) % TSH (0.465-4.680) mIU/L Diabetes panel 12/06/19 12/06/19 12/07/19 Range/Units 05:06 07:26 08:00 Sodium 136 L 138 (137-145) mmol/L Potassium 5.3 H 4.6 (3.5-5.1) mmol/L Chloride 100 101 (98-107) mmol/L Carbon Dioxide 25 33 H (22-30) mmol/L BUN 33 H 23 H (9-20) mg/dL Creatinine 0.85 0.91 (0.66-1.25) mg/dL Glucose 308 H 124 H (74-99) mg/dL Hemoglobin A1c 9.6 H (4.0-6.0) % Calcium 9.9 9.6 (8.4-10.2) mg/dL Thyroid panel 12/06/19 Range/Units 07:26 TSH 0.252 L (0.465-4.680) mIU/L Calcium panel 12/06/19 12/07/19 Range/Units 07:26 08:00 Calcium 9.9 9.6 (8.4-10.2) mg/dL Pituitary panel 12/06/19 12/06/19 12/07/19 Range/Units 07:26 07:26 08:00 Sodium 136 L 138 (137-145) mmol/L Potassium 5.3 H 4.6 (3.5-5.1) mmol/L Chloride 100 101 (98-107) mmol/L Carbon Dioxide 25 33 H (22-30) mmol/L BUN 33 H 23 H (9-20) mg/dL Creatinine 0.85 0.91 (0.66-1.25) mg/dL Glucose 308 H 124 H (74-99) mg/dL Calcium 9.9 9.6 (8.4-10.2) mg/dL TSH 0.252 L (0.465-4.680) mIU/L Adrenal panel 12/06/19 12/07/19 Range/Units 07:26 08:00 Sodium 136 L 138 (137-145) mmol/L Potassium 5.3 H 4.6 (3.5-5.1) mmol/L Chloride 100 101 (98-107) mmol/L Carbon Dioxide 25 33 H (22-30) mmol/L BUN 33 H 23 H (9-20) mg/dL Creatinine 0.85 0.91 (0.66-1.25) mg/dL Glucose 308 H 124 H (74-99) mg/dL Calcium 9.9 9.6 (8.4-10.2) mg/dL Assessment and Plan Assessment: 1. Severe proximal right ICA stenosis, moderate proximal left ICA stenosis. 2. Dizziness 3. Peripheral arterial disease 4. Diabetes mellitus, type II 5. Hyperlipidemia 6. Coronary artery disease 7. Myocardial infarction 8. Hypertension 9 COPD 10. Morbidly obese Plan: Continue with Plavix and Lipitor 20mg, will consider increasing if tolerated. Strict glycemic control. Discussed importance of weight loss and increase physical activity. Dr. Palumbo reviewed imaging, does not show much change from previous. The patient's symptoms of dizziness are inconsistent with carotid stenosis, he has no focal deficits consistent with CVA/TIA. There are no indications for any emergent vascular surgical interventions at this time. The patient is recommended to follow up outpatient with Dr. Chand as previously scheduled. Patient to have medical clearance for his planned non-emergent outpatient carotid surgery with Dr. Chand. Thank you for this consultation and allowing us to participate in the plan of care of your patient during his hospital stay. The above dictated assessment and findings were discussed with Dr. Barragan. The impression and plan of care have been directed as dictated.
[2019-12-07 14:24] VITALS: BMI 43.6
--- NOTE | 2019-12-07 15:13 | P.PN ---
Subjective Progress Note Date: 12/07/19 Patient states he is doing better. He is up and moving around better. His dizziness has improved. Blood sugars have improved. Patient today had an episode while he was laying down in the bed, when he developed double vision. He got up from the bed, and the symptoms resolved in 15-20 minutes. He denied any other focal symptoms with it. No numbness tingling focal weakness slurred speech or facial droop. Patient also tells me that he used to take aspirin 81 mg daily, but then he developed some ALLERGIC reaction, which he is not certain if was truly from aspirin. His skin used to get red and get hives. The symptoms did persist even after discontinuing aspirin but then slowly it faded away. Objective - Vital Signs Vital signs: Vital Signs Temp 98.2 F 12/07/19 11:57 Pulse 63 12/07/19 11:57 Resp 18 12/07/19 11:57 BP 140/72 12/07/19 11:57 Pulse Ox 95 12/07/19 11:57 Intake & Output 12/06/19 12/07/19 12/07/19 18:59 06:59 18:59 Intake Total 520 60 40 Output Total 200 475 Balance 320 -415 40 Weight 146 kg Intake: IV 20 60 40 Invasive Line 2 20 60 40 Oral 500 Output: Urine 200 475 Other: Voiding Method Urinal Urinal Urinal # Voids 250 1 - Exam Patient's mental status, speech and language functions are normal. Cranial nerves are normal. Pupils are round and reactive to light. Visual waite are full. Extraocular muscles are intact with mild nystagmus on to the right. Face is symmetric and tongue protrudes the midline. Muscle strength is normal in the arms and legs. No ataxia. Tone and bulk of muscles normal. - Labs CBC & Chem 7: 12/07/19 08:00 12/07/19 08:00 Labs: Abnormal Lab Results - Last 24 Hours (Table) 12/06/19 12/06/19 12/06/19 Range/Units 05:06 07:26 16:23 RDW (11.5-15.5) % Sodium 136 L (137-145) mmol/L Potassium 5.3 H (3.5-5.1) mmol/L Carbon Dioxide (22-30) mmol/L BUN 33 H (9-20) mg/dL Glucose 308 H (74-99) mg/dL POC Glucose (mg/dL) 272 H (75-99) mg/dL Hemoglobin A1c 9.6 H (4.0-6.0) % 12/06/19 12/07/19 12/07/19 Range/Units 20:29 05:55 08:00 RDW 15.6 H (11.5-15.5) % Sodium (137-145) mmol/L Potassium (3.5-5.1) mmol/L Carbon Dioxide (22-30) mmol/L BUN (9-20) mg/dL Glucose (74-99) mg/dL POC Glucose (mg/dL) 205 H 111 H (75-99) mg/dL Hemoglobin A1c (4.0-6.0) % 12/07/19 12/07/19 Range/Units 08:00 10:58 RDW (11.5-15.5) % Sodium (137-145) mmol/L Potassium (3.5-5.1) mmol/L Carbon Dioxide 33 H (22-30) mmol/L BUN 23 H (9-20) mg/dL Glucose 124 H (74-99) mg/dL POC Glucose (mg/dL) 144 H (75-99) mg/dL Hemoglobin A1c (4.0-6.0) % Assessment and Plan Assessment: * Probable viral labyrinthitis. Doubt CVA/TIA. Patient has history of sore throat and left ear pain 2 weeks ago, that lasted for a couple days. Examination only significant for right-sided nystagmus. No ataxia of the extremities. * New onset transient episode of diplopia, that lasted for 15-20 minutes. Possible TIA, possibly in posterior circulation. * Bilateral ICA stenosis. * Hypertension * Hyperlipidemia, and hypertriglyceridemia not being treated. * Obesity * Diabetes Plan: * MRI of the brain, MRA of head and neck were ordered. However patient's body habitus precludes MR testing. * Carotid Doppler revealed severe, greater than 70% proximal right ICA stenosis. Moderate 50-69 percent stenosis left ICA. Antegrade flow in both vertebral arteries. * Patient subsequently underwent CTA of head and neck, which revealed moderately severe stenosis of the origins of both ICA. According to the body of report, estimated stenosis is more than 75% to 90% bilaterally. There is arterial flow in both vertebral arteries. There is arterial flow in the vertebrobasilar arterial system. No aneurysms. Normal flow in bilateral PICA. Patient was seen by vascular surgeon Dr. Barragan who does not believe dizziness is related to ICA stenosis. Recommended stroke risk factor modification including optimization of control of diabetes, hypertension, dyslipidemia, weight loss and follow-up with his vascular surgeon for nonemergent CEA as planned previously. * Hemoglobin A1c 9.6, indicative of poorly controlled diabetes. Suggest optimize control of diabetes to target A1c <7.0. * Continue Plavix 75 mg daily. Due to this recent possible TIA, we will start aspirin 81 mg daily. Patient was recommended that if he gets any rash, or hives, can either stop aspirin or take it every other day. * Patient has significant hyperlipidemia, hypertriglyceridemia. He has been started on Lipitor 20 mg. * Blood pressure is better controlled now. * Patient receiving Zofran for nausea and Antivert for vertigo. * Patient requesting prescription of walker. * Neurologically clear for discharge. Patient recommended to follow up with a neurologist locally as outpatient.
[2019-12-07 16:39] LABS: Glucose,Whole Blood 171 mg/dL (75-99)
--- NOTE | 2019-12-07 16:47 | P.PN ---
Progress Note - Text Progress Note Date: 12/07/19 Chief Complaint: Room spinning History of presenting complaint: This is a very pleasant [address] Palomares. Chronic stable medical conditions include coronary artery disease, COPD, diabetes, hypertension, hyperlipidemia, osteoarthritis obesity. Patient has known carotid artery disease. Has prior cardiac stents. Yesterday was fixing something then he became lightheaded side of her chair protocol with a cold sweat. That became dizzy and improved status fifths spinning around and nearly fell down. Never passed out. Also developed nausea. Feeling somewhat better. Her now back to normal. No change in speech. No focal symptoms. Initial computed tomography scan of the brain was unremarkable. Patient unable to do an MRI Today-still getting some dizziness especially when he moves. No nausea vomiting. Vascular surgery was consulted based on CT I'll review findings. Review of systems: Was done for constitutional, cardiovascular, GI, pulmonary. relevant finding as above Active Medications Acetaminophen (Tylenol Tab) 650 mg PO Q6HR PRN PRN Reason: Pain Aspirin (Aspirin) 81 mg PO DAILY [facility] Atorvastatin Calcium (Lipitor) 20 mg PO HS [facility] Last Admin: 12/06/19 21:45 Dose: 20 mg Documented by: Clonazepam (Klonopin) 0.5 mg PO HS PRN PRN Reason: leg spasms Clopidogrel Bisulfate (Plavix) 75 mg PO DAILY [facility] Last Admin: 12/07/19 11:01 Dose: 75 mg Documented by: Enoxaparin Sodium (Lovenox) 40 mg SQ HS [facility] Last Admin: 12/06/19 21:45 Dose: 40 mg Documented by: Insulin Detemir (Levemir) 50 unit SQ BID [facility] Last Admin: 12/07/19 11:01 Dose: 50 unit Documented by: Lisinopril (Zestril) 45 mg PO BID [facility] Last Admin: 12/07/19 11:01 Dose: 45 mg Documented by: Meclizine HCl (Antivert) 25 mg PO TID PRN PRN Reason: Vertigo Last Admin: 12/07/19 11:01 Dose: 25 mg Documented by: Metoprolol Tartrate (Lopressor) 50 mg PO BID [facility] Last Admin: 12/07/19 11:01 Dose: 50 mg Documented by: Ondansetron HCl (Zofran) 4 mg IVP Q6HR PRN PRN Reason: Nausea And Vomiting Last Admin: 12/06/19 16:39 Dose: 4 mg Documented by: Physical examination: VITAL SIGNS: 97.7, 78, 18, 142/70, 94% on 2 L GENERAL: Sitting upon a chair, awake EYES: Pupils equal. Conjunctiva normal. HEENT: External appearance of nose and ears normal, oral cavity grossly normal. NECK: JVD not raised; masses not palpable. HEART: First and second heart sounds are normal; no edema. LUNGS:[ Respiratory rate normal; decreased breath sounds. ABDOMEN: Soft, nontender, liver spleen not palpable, no masses palpable. PSYCH: Alert and oriented x3; mood and affect normal. INVESTIGATIONS, reviewed in the clinical context: White count 9.6 hemoglobin 40.2 potassium 4[address] angiogram and neck-moderately severe stenosis at the origin of both internal carotid arteries. Close to 90% Carotid Doppler shows severe greater than 70% proximal ICA stenosis on the right side Previous studies White count 11.9 hemoglobin 14.8 potassium 5.3 creatinine 0.87 glucose 317 Triglycerides 840 total cholesterol 235 EKG tracing personally reviewed by me-sinus rhythm Chest x-ray film personally reviewed by me-slightly underpenetrated Computed tomography scan of the brain-some age-related changes Assessment: -Patient presented acute onset of vertigo with the room spinning nausea: Sweat dizzy. Possible dysdiadochokinesis on the right side. Questionable nystagmus. Initial computed tomography scan negative for cerebellar stroke. Patient cannot have an MRI. Possible viral labyrinthitis per neurology. -Significant carotid artery stenosis close to 90% on the right side -Morbid obesity BMI 43.7 -Coronary artery disease with a prior history of stent -COPD in an ex-smoker -Diabetes mellitus type 2 chronically on insulin, uncontrolled with hyperglycemia -Hyperlipidemia, uncontrolled -Essential hypertension Primary osteoarthritis Plan: Patient is tolerating Plavix. Vascular surgery was consulted. Patient's presentation not felt to be focal. As per vascular hence no intervention at present time. Per neuro felt to have viral labyrinthitis. We washed the patient overnight. We will give scheduled Antivert
[2019-12-07] MEDS: ASPIRIN 81 MG PO SCH (17:04)
[2019-12-07] MEDS: MECLIZINE 25 MG TAB PO SCH ×2 (17:04→21:59)
[2019-12-07 20:34] LABS: Glucose,Whole Blood 151 mg/dL (75-99)
[2019-12-07] MEDS: ENOXAPARIN 40 MG/0.4 ML SYRINGE SQ SCH (21:58)
[2019-12-07] MEDS: ATORVASTATIN 20 MG TAB PO SCH (21:59)
[2019-12-08 06:10] LABS: Glucose,Whole Blood 101 mg/dL (75-99)
[2019-12-08 08:41] VITALS: RESP 16
[2019-12-08] MEDS: ASPIRIN 81 MG PO SCH (08:42)
[2019-12-08] MEDS: LISINOPRIL 10 MG TAB PO SCH (08:42)
[2019-12-08] MEDS: METOPROLOL TARTRATE 50 MG TAB PO SCH (08:42)
[2019-12-08] MEDS: CLOPIDOGREL 75 MG TAB PO SCH (08:42)
[2019-12-08] MEDS: MECLIZINE 25 MG TAB PO SCH ×2 (08:42→15:20)
[2019-12-08] MEDS: INSULIN DETEMIR (LEVEMIR) 100 UNIT/ML SYR SQ SCH (08:44)
[2019-12-08 08:47] LABS: Glucose,Whole Blood 246 mg/dL (75-99)
[2019-12-08 11:54] LABS: Glucose,Whole Blood 158 mg/dL (75-99)
--- NOTE | 2019-12-08 12:18 | P.PN ---
Subjective Progress Note Date: 12/08/19 The patient is seen and examined sleeping in bed, however easily arousable. Patient is in no apparent acute distress. Patient denies any shortness of breath or chest pain. States he still has some dizziness although improved with position changes and going from lying to standing. The patient denies any loss of vision, slurred speech, or extremity weakness. Objective - Vital Signs Vital signs: Vital Signs Temp 97.6 F 12/08/19 08:41 Pulse 78 12/08/19 08:41 Resp 16 12/08/19 08:41 BP 127/64 12/08/19 08:41 Pulse Ox 89 L 12/08/19 08:41 Intake & Output 12/07/19 12/08/19 12/08/19 18:59 06:59 18:59 Intake Total 650 610 Output Total 450 Balance 650 160 Weight 146 kg 131.7 kg Intake: IV 50 30 Invasive Line 2 50 30 Oral 600 580 Output: Urine 450 Other: Voiding Method Urinal Urinal # Voids 3 - Exam General appearance: The patient is alert, oriented, in no acute distress. Sleeping but easily arousable. HET: Head is normocephalic and atraumatic. Neck: Supple without lymphadenopathy. Trachea midline. Heart: S1 S2. Regular rate and rhythm. Lungs: No crackles or wheezes are heard. Extremities: Normal skin color and turgor. No cyanosis, rash, ulceration, clubbing, or edema. Neurological: No focal deficits. Strength and sensation are grossly intact. Speech is fluent, facial symmetry. - Labs CBC & Chem 7: 12/07/19 08:00 12/07/19 08:00 Labs: Abnormal Lab Results - Last 24 Hours (Table) 12/07/19 12/07/19 12/08/19 Range/Units 16:31 20:32 06:08 POC Glucose (mg/dL) 171 H 151 H 101 H (75-99) mg/dL 12/08/19 12/08/19 Range/Units 08:44 11:41 POC Glucose (mg/dL) 246 H 158 H (75-99) mg/dL Assessment and Plan Assessment: 1. Severe proximal right ICA stenosis, moderate proximal left ICA stenosis. 2. Dizziness 3. Peripheral arterial disease 4. Diabetes mellitus, type II 5. Hyperlipidemia 6. Coronary artery disease 7. Myocardial infarction 8. Hypertension 9 COPD 10. Morbidly obese Plan: Patient is to continue with Plavix and Lipitor. Continue with strict glycemic control and focus on weight loss. Patient to follow-up with Dr. Chand for planned outpatient carotid surgery. The above dictated assessment and findings were discussed with Dr. Barragan. The impression and plan of care have been directed as dictated.
--- NOTE | 2019-12-08 15:08 | P.PN ---
Subjective Progress Note Date: 12/08/19 Patient states he is doing much better. He is up and moving around better. His dizziness has significantly improved. Blood sugars have improved. No further episodes of TIA or diplopia. Patient has been started on aspirin 81 mg daily and is tolerating it well. No rash. Patient also tells me that he used to take aspirin 81 mg daily, but then he developed some ALLERGIC reaction, which he is not certain if was truly from aspirin. His skin used to get red and get hives. The symptoms did persist even after discontinuing aspirin but then slowly it faded away. Objective - Vital Signs Vital signs: Vital Signs Temp 98.6 F 12/08/19 11:45 Pulse 98 12/08/19 11:45 Resp 16 12/08/19 12:00 BP 166/79 12/08/19 11:45 Pulse Ox 92 L 12/08/19 11:45 Intake & Output 12/07/19 12/08/19 12/08/19 18:59 06:59 18:59 Intake Total 650 610 472 Output Total 450 Balance 650 160 472 Weight 146 kg 131.7 kg Intake: IV 50 30 20 Invasive Line 2 50 30 20 Oral 600 580 452 Output: Urine 450 Other: Voiding Method Urinal Urinal Urinal # Voids 3 2 - Exam Patient's mental status, speech and language functions are normal. Cranial nerves are normal. Pupils are round and reactive to light. Visual waite are full. Extraocular muscles are intact with mild nystagmus on to the right. Face is symmetric and tongue protrudes the midline. Muscle strength is normal in the arms and legs. No ataxia. Tone and bulk of muscles normal. - Labs CBC & Chem 7: 12/07/19 08:00 12/07/19 08:00 Labs: Abnormal Lab Results - Last 24 Hours (Table) 12/07/19 12/07/19 12/08/19 Range/Units 16:31 20:32 06:08 POC Glucose (mg/dL) 171 H 151 H 101 H (75-99) mg/dL 12/08/19 12/08/19 Range/Units 08:44 11:41 POC Glucose (mg/dL) 246 H 158 H (75-99) mg/dL Assessment and Plan Assessment: * Probable viral labyrinthitis. Doubt CVA/TIA. Patient has history of sore throat and left ear pain 2 weeks ago, that lasted for a couple days. Examination only significant for right-sided nystagmus. No ataxia of the extremities. * New onset transient episode of diplopia, that lasted for 15-20 minutes. Possible TIA, possibly in posterior circulation. * Bilateral ICA stenosis. * Hypertension * Hyperlipidemia, and hypertriglyceridemia not being treated. * Obesity * Diabetes Plan: * MRI of the brain, MRA of head and neck were ordered. However patient's body habitus precludes MR testing. * Carotid Doppler revealed severe, greater than 70% proximal right ICA stenosis. Moderate 50-69 percent stenosis left ICA. Antegrade flow in both vertebral arteries. * Patient subsequently underwent CTA of head and neck, which revealed moderately severe stenosis of the origins of both ICA. According to the body of report, estimated stenosis is more than 75% to 90% bilaterally. There is arterial flow in both vertebral arteries. There is arterial flow in the vertebrobasilar arterial system. No aneurysms. Normal flow in bilateral PICA. Patient was seen by vascular surgeon Dr. Barragan who does not believe dizziness is related to ICA stenosis. Recommended stroke risk factor modification including optimization of control of diabetes, hypertension, dyslipidemia, weight loss and follow-up with his vascular surgeon for nonemergent CEA as planned previously. * Hemoglobin A1c 9.6, indicative of poorly controlled diabetes. Suggest optimize control of diabetes to target A1c <7.0. * Continue Plavix 75 mg and aspirin 81 mg daily. Patient was recommended that if he gets any rash, or hives, can either stop aspirin or take it every other day. * Patient has significant hyperlipidemia, hypertriglyceridemia. He has been started on Lipitor 20 mg. * Blood pressure is better controlled now. * Patient receiving Zofran for nausea and Antivert for vertigo. * Patient requesting prescription of walker. * Neurologically clear for discharge. Patient recommended to follow up with a neurologist locally as outpatient.
[2019-12-08 16:39] LABS: Glucose,Whole Blood 151 mg/dL (75-99)
[2019-12-08 18:46] VITALS: BP 184/91; PULSE 67; TEMP 97.7
--- NOTE | 2019-12-08 19:57 | P.DS ---
Providers Date of admission: 12/05/19 19:12 Expected date of discharge: 12/08/19 Attending physician: Xu Hoang Consults: 12/05/19 19:13 Consult Physician Routine Consulting Provider: Benjamín Jimenez Consult Reason/Comments: vertigo r/o post cva Do you want consulting provider notified?: Yes 12/07/19 08:24 Consult Physician Routine Consulting Provider: Lyle Chand Consult Reason/Comments: moderate-severe ICA stenosis Do you want consulting provider notified?: Yes [facility] Course: Chief Complaint: Room spinning History of presenting complaint: This is a very pleasant [address] Palomares. Chronic stable medical conditions include coronary artery disease, COPD, diabetes, hypertension, hyperlipidemia, osteoarthritis obesity. Patient has known carotid artery disease. Has prior cardiac stents. Yesterday was fixing something then he became lightheaded side of her chair protocol with a cold sweat. That became dizzy and improved status fifths spinning around and nearly fell down. Never passed out. Also developed nausea. Feeling somewhat better. Her now back to normal. No change in speech. No focal symptoms. Initial computed tomography scan of the brain was unremarkable. Patient unable to do an MRI. CT angiogram showed significant carotid stenosis. Special on the right side. Seen by vascular surgery. Not felt to be contributing to current symptoms. Patient felt to have acute vestibulitis. She responded well to Antivert. Today-symptoms much improved. Cane to go home. Cleared by neurology. Patient walking greatly improved Consultation: Dr. Clarke from neurology Dr. Barragan from vascular surgery Physical examination: VITAL SIGNS: 97.7, 67, 16, 166/79, 92% on room air GENERAL: Sitting upon a chair, awake EYES: Pupils equal. Conjunctiva normal. HEENT: External appearance of nose and ears normal, oral cavity grossly normal. NECK: JVD not raised; masses not palpable. HEART: First and second heart sounds are normal; no edema. LUNGS:[ Respiratory rate normal; decreased breath sounds. ABDOMEN: Soft, nontender, liver spleen not palpable, no masses palpable. PSYCH: Alert and oriented x3; mood and affect normal. INVESTIGATIONS, reviewed in the clinical context: White count 9.6 hemoglobin 40.2 potassium 4[address] angiogram and neck-moderately severe stenosis at the origin of both internal carotid arteries. Close to 90% Carotid Doppler shows severe greater than 70% proximal ICA stenosis on the right side Previous studies White count 11.9 hemoglobin 14.8 potassium 5.3 creatinine 0.87 glucose 317 Triglycerides 840 total cholesterol 235 EKG tracing personally reviewed by me-sinus rhythm Chest x-ray film personally reviewed by me-slightly underpenetrated Computed tomography scan of the brain-some age-related changes Assessment: - Possible viral labyrinthitis responded to Antivert -Significant carotid artery artery stenosis close to 90% on the right side -Morbid obesity BMI 43.7 -Coronary artery disease with a prior history of stent -COPD in an ex-smoker -Diabetes mellitus type 2 chronically on insulin, uncontrolled with hyperglycemia -Hyperlipidemia, uncontrolled -Essential hypertension Primary osteoarthritis Disposition: Home Patient Condition at Discharge: Stable Plan - Discharge Summary Discharge Rx Participant: No New Discharge Prescriptions: New Meclizine [Antivert] 25 mg PO DIRECTED #20 tab Aspirin 81 mg PO DAILY #21 chew Atorvastatin [Lipitor] 40 mg PO HS #30 tablet Continue Clopidogrel [Plavix] 75 mg PO DAILY #30 tab Metoprolol Tartrate [Lopressor] 50 mg PO BID clonazePAM 0.5 mg PO HS PRN PRN Reason: leg spasms Lisinopril 45 mg PO BID Changed Insulin Detemir (Levemir) [Levemir] 56 unit SQ BID #0 Discontinued Azithromycin [Zithromax Z-pack] See Taper PO DIRECTED Discharge Medication List Clopidogrel [Plavix] 75 mg PO DAILY #30 tab 06/07/17 [Rx] Metoprolol Tartrate [Lopressor] 50 mg PO BID 02/24/19 [History] Lisinopril 45 mg PO BID 12/05/19 [History] clonazePAM 0.5 mg PO HS PRN 12/05/19 [History] Aspirin 81 mg PO DAILY #21 chew 12/08/19 [Rx] Atorvastatin [Lipitor] 40 mg PO HS #30 tablet 12/08/19 [Rx] Insulin Detemir (Levemir) [Levemir] 56 unit SQ BID #0 12/08/19 [Rx] Meclizine [Antivert] 25 mg PO DIRECTED #20 tab 12/08/19 [Rx] Follow up Appointment(s)/Referral(s): David Palomares MD [Primary Care Provider] - 3 Days (Office is currently closed, please call on Wednesday during normal business hours to make follow-up appointme nt.) [facility] [employer] [NON-STAFF] - Lyle Chand DO [STAFF PHYSICIAN] - 1 Week (Make follow-up on Wednesday during normal business hours.) Delvis Prajapati MD [STAFF PHYSICIAN] - 1 Week (Need referral from Primary Care Physician, then make follow-up appointment.) Patient Instructions/Handouts: Vertigo (DC) Discharge Disposition: HOME SELF-CARE
== END 2019-12-08 18:43 | disposition home or self-care (01) | DRG 149 ==
LOC: EC 16:33 → 3SCARD 19:12
PROVIDERS: ADMIT Hospitalist; ATTEND Hospitalist
DX: H83.02 Labyrinthitis, left ear (principal); Z68.41 Body mass index [BMI] 40.0-44.9, adult; E11.51 Type 2 diabetes mellitus with diabetic peripheral angiopathy without gangrene; I65.23 Occlusion and stenosis of bilateral carotid arteries; E11.65 Type 2 diabetes mellitus with hyperglycemia; I25.10 Atherosclerotic heart disease of native coronary artery without angina pectoris; M19.91 Primary osteoarthritis, unspecified site; J44.9 Chronic obstructive pulmonary disease, unspecified; I10 Essential (primary) hypertension; E78.5 Hyperlipidemia, unspecified; K64.9 Unspecified hemorrhoids; E66.01 Morbid (severe) obesity due to excess calories; I35.8 Other nonrheumatic aortic valve disorders; H55.09 Other forms of nystagmus; D72.829 Elevated white blood cell count, unspecified; B97.89 Other viral agents as the cause of diseases classified elsewhere; I25.2 Old myocardial infarction; Z71.3 Dietary counseling and surveillance; Z79.899 Other long term (current) drug therapy; Z79.02 Long term (current) use of antithrombotics/antiplatelets; Z79.4 Long term (current) use of insulin; Z95.5 Presence of coronary angioplasty implant and graft; Z90.49 Acquired absence of other specified parts of digestive tract; Z95.1 Presence of aortocoronary bypass graft; Z87.891 Personal history of nicotine dependence; Z88.6 Allergy status to analgesic agent; Z88.1 Allergy status to other antibiotic agents; Z88.0 Allergy status to penicillin; Z88.2 Allergy status to sulfonamides; Z82.49 Family history of ischemic heart disease and other diseases of the circulatory system; Z84.1 Family history of disorders of kidney and ureter; Z80.8 Family history of malignant neoplasm of other organs or systems
CPT/HCPCS: 36415; 70450; 70496; 70498; 71046; 80048; 80053; 80061; 81003; 83036; 83690; 83735; 84439; 84443; 84484; 85025; 85027; 85610; 85730; 93005; 93306; 93880; 96361; 96374; 96375; 99285

== ENCOUNTER 2019-12-19 12:15 | Inpatient (IN) | payer MEDICARE ==
[2019-12-19 09:02] VITALS: BMI 39.2
[2019-12-20] MEDS ORDERED: MORPHINE SULFATE 2 MG/ML SYRINGE IV PRN (05:49)
[2019-12-20] MEDS ORDERED: DEXAMETHASONE SOD PHOSPHATE 10 MG/ML 1 ML VIAL IV ONE (05:49)
[2019-12-20] MEDS ORDERED: ONDANSETRON 4 MG/2 ML VIAL IVP ONE (05:49)
[2019-12-20] MEDS ORDERED: LIDOCAINE 1% (10MG/ML) FOR IV START INTRADERMA PRN (05:49)
[2019-12-20] MEDS ORDERED: ONDANSETRON 4 MG/2 ML VIAL IVP PRN (05:49)
[2019-12-20] MEDS ORDERED: ceFAZolin 3 GM in SODIUM CHLORIDE 0.9% 100 ML IVPB ONE (06:00)
[2019-12-20] MEDS ORDERED: PHENYLEPHRINE 40 MG in SODIUM CHLORIDE 0.9% 250 ML IV ONE (07:45)
[2019-12-20] MEDS ORDERED: NITROGLYCERIN-D5W PMX 50 MG in DEXTROSE/WATER 1 250ML.BAG IV ONE (07:45)
[2019-12-20] MEDS ORDERED: LACTATED RINGERS 1,000 ML IV ONE ×3 (07:48→12:04)
[2019-12-20 07:50] LABS: Glucose,Whole Blood 150 mg/dL (75-99)
[2019-12-20] MEDS ORDERED: MIDAZOLAM 2 MG/2 ML VIAL IVP ONE (08:10)
[2019-12-20] MEDS ORDERED: fentaNYL (PF) 50 MCG/ML 2 ML AMP IVP ONE (08:11)
[2019-12-20] MEDS ORDERED: MIDAZOLAM 2 MG/2 ML VIAL ONE (09:34)
[2019-12-20] MEDS ORDERED: LABETALOL 5 MG/ML VIAL MDV ONE (09:34)
[2019-12-20] MEDS ORDERED: fentaNYL (PF) 50 MCG/ML 2 ML AMP ONE (09:34)
[2019-12-20] MEDS ORDERED: NEOSTIGMINE 1 MG/ML 10 ML VIAL ONE (09:34)
[2019-12-20] MEDS ORDERED: GLYCOPYRROLATE 0.2 MG/ML 2 ML VIAL ONE (09:34)
[2019-12-20] MEDS ORDERED: LIDOCAINE 1% INJ 10MG/ML (20 ML MDV) ONE (09:34)
[2019-12-20] MEDS ORDERED: PHENYLEPHRINE-0.9% NACL SYG 1 MG/10 ML SYRINGE ONE (09:34)
[2019-12-20] MEDS ORDERED: ROCURONIUM BROMIDE 10 MG/ML 5 ML VIAL IV ONE (09:34)
[2019-12-20] MEDS ORDERED: SUCCINYLCHOLINE CHLORIDE 100 MG/5 ML SYR IV ONE (09:34)
[2019-12-20] MEDS ORDERED: PROPOFOL 10 MG/ML 20 ML VIAL IV ONE (09:34)
[2019-12-20] MEDS ORDERED: ePHEDrine SULFATE/0.9% NACL/PF 50 MG/5 ML SYRINGE IV ONE (09:34)
[2019-12-20] MEDS ORDERED: HEPARIN SODIUM IV ONE ×2 (09:39)
[2019-12-20] MEDS ORDERED: SODIUM CHLORIDE 0.9% 500 ML 500 ML with ceFAZolin 2,000 MG IV ONE ×2 (09:39)
[2019-12-20] MEDS ORDERED: SODIUM CHLORIDE IV ONE ×2 (09:39)
[2019-12-20] MEDS ORDERED: LIDOCAINE 1% INJ 10MG/ML (20 ML MDV) SQ ONE (10:12)
[2019-12-20] MEDS ORDERED: ACETAMINOPHEN TAB 325 MG TAB PO PRN (12:16)
[2019-12-20] MEDS ORDERED: HYDROcodone/APAP 5-325MG 1 EACH TAB PO PRN (12:16)
[2019-12-20] MEDS ORDERED: TRIMETHOBENZAMIDE 100 MG/ML 2 ML VIAL IM PRN (12:16)
[2019-12-20] MEDS ORDERED: MAG HYDROX/AL HYDROX/SIMETH 30 ML CUP PO PRN (12:16)
[2019-12-20] MEDS ORDERED: MORPHINE SULFATE 2 MG/ML SYRINGE IVP PRN (12:16)
[2019-12-20] MEDS ORDERED: clonazePAM 0.5 MG TAB PO PRN (12:19)
--- NOTE | 2019-12-20 12:25 | P.OP ---
Description of Procedure: Date of Procedure: 12/20/2019 Preoperative Diagnosis: Right Internal carotid artery stenosis greater than 80% Postoperative Diagnosis: Same Procedure(s) Performed: Right carotid endarterectomy with patch angioplasty Anesthesia: LYLA Surgeon: Lyle Chand Estimated Blood Loss (ml): 75 Pathology: Right carotid plaque Condition: stable Disposition: PACU Indications for Procedure: 69-year-old gentleman who originally presented to the office secondary to carotid stenosis found on a carotid Doppler. He underwent CTA of the neck which demonstrated greater than 75% stenosis of bilateral internal carotid arteries. He was discussed at that time for surgical intervention but due to the pandemic this was pushed off. He then was admitted to the hospital for dizziness and falling and once again was worked up for his carotid which demonstrated worsening stenosis of the right internal carotid artery. On carotid Doppler there was increased velocities compared to his last imaging and therefore we discussed performing the surgery. He presents today for carotid endarterectomy. Description of Procedure: After written informed consent was obtained the patient all risks benefits and competitions were described the patient is brought to the operative suite and laid in a supine position. The area of the neck was prepped and draped in usual sterile fashion after appropriate anesthetic was performed per the anesthesiologist. A timeout was performed in normal fashion antibiotics were administered prior to incision. An oblique incision was then created just anterior to the sternocleidomastoid musculature with a 10 blade scalpel and dissection was carried down to the carotid sheath. The carotid sheath was then entered after facial vein was located and suture ligated in normal fashion. The common carotid, internal carotid, external carotid and superior thyroid arteries were located and dissected free in a meticulous fashion circumferentially and controlled with vessel loops. The internal carotid artery had a high bifurcation and was extremely difficult to dissect free. Attention was then placed to locating the vagus nerve as well as hypoglossal nerve which were both spared. Once controlled patient was administered heparin and followed with ACTs for appropriate heparinization. Once ACT was above 200 the proximal and distal aspects of the dissection were then controlled with vascular clamps. Arteriotomy was then created with 11 blade scalpel and extended with Parrish Upton scissors. Utilizing pressure tubing stump pressures were obtained and were 73 mmHg. No shunt was required and endarterectomy was then performed with a Welling and elevator. The plaque was then feathered at the distal aspect and the internal carotid artery and removed. The area was copiously irrigated with heparinized saline and all free debris was removed. A 7-0 Prolene suture was then placed to tack the distal aspect of the dissection at the internal carotid artery. A 0.8 x 8 cm bovine pericardial patch was then chosen and patch angioplasty was performed with 6-0 Prolene suture in a running fashion. Prior to last sutures being placed the inflow was released flushing any free debris out of the patch. This was reclamped and the internal carotid artery was released revealing good brisk flow and was once again reclamped. The external carotid and superior thyroid artery were then released followed by the common carotid artery to allow any free debris to be flushed into the external system. Final sutures were placed and secured. Internal carotid artery control was then released. Good pulsatile flow was noted through the patch and a Doppler was utilized demonstrating good brisk flow into the internal, external carotid arteries without any signs of obstruction. Hemostasis was then assured with Surgicel Snow. A 10-Occitan MARITZA drain was then placed in normal fashion and secured with 3-0 nylon suture. The incision was then closed in a multilayer fashion after hemostasis was assured. The skin was then cleansed and dressings were placed. Patient tolerated the procedure well and was following commands and moving all extremities. Patient was then sent to PACU for recovery.
[2019-12-20 12:54] LABS: Glucose,Whole Blood 252 mg/dL (75-99)
[2019-12-20 13:49] LABS: Glucose,Whole Blood 268 mg/dL (75-99)
[2019-12-20 14:34] LABS: Basophils % (A) 0 %; Eosinophils % (A) 0 %; HCT 45.1 % (39.0-53.0); HGB 14.3 gm/dL (13.0-17.5); Hypochromasia Moderate; Lymphocytes # (A) 0.8 k/uL (1.0-4.8); Lymphocytes % (A) 10 %; MCH 29.6 pg (25.0-35.0); MCHC 31.6 g/dL (31.0-37.0); MCV 93.6 fL (80.0-100.0); Mean Platelet Volume 7.1; Monocytes # (A) 0.1 k/uL (0-1.0); Monocytes % (A) 2 %; Neutrophils # (A) 6.9 k/uL (1.3-7.7); Neutrophils % (A) 88 %; Platelet Count 202 k/uL (150-450); RBC 4.82 m/uL (4.30-5.90); RDW 15.4 % (11.5-15.5); WBC 7.8 k/uL (3.8-10.6)
[2019-12-20] MEDS: LACTATED RINGERS 1,000 ML IV SCH (15:03)
[2019-12-20 15:16] LABS: African American GFR (CKD) >90 (>60 ml/min/1.73 sqM); Anion Gap 7 mmol/L; Blood Urea Nitrogen 28 mg/dL (9-20); Calcium 9.3 mg/dL (8.4-10.2); Carbon Dioxide 27 mmol/L (22-30); Chloride 100 mmol/L (98-107); Glucose 272 mg/dL (74-99); Non-African American GFR(CKD) 89 (>60 ml/min/1.73 sqM); Potassium 5.1 mmol/L (3.5-5.1); Sodium 134 mmol/L (137-145)
[2019-12-20 16:56] LABS: Glucose,Whole Blood 245 mg/dL (75-99)
[2019-12-20] MEDS: HEPARIN SODIUM,PORCINE 5,000 UNIT/ML 1 ML VIAL SQ SCH (17:11)
[2019-12-20] MEDS: INSULIN ASPART (NovoLOG) 100 UNIT/ML VIAL SQ SCH ×2 (17:12→21:19)
[2019-12-20] MEDS ORDERED: BENZOCAINE/MENTHOL LOZENG 1 EACH LOZENGE MUCOUS MEM PRN (20:36)
[2019-12-20 20:46] LABS: Glucose,Whole Blood 327 mg/dL (75-99)
[2019-12-20] MEDS ORDERED: CLOPIDOGREL 75 MG TAB PO SCH (21:00)
[2019-12-20] MEDS ORDERED: LISINOPRIL 10 MG TAB PO SCH (21:00)
[2019-12-20] MEDS ORDERED: ATORVASTATIN 40 MG TAB PO SCH (21:00)
[2019-12-20] MEDS: METOPROLOL TARTRATE 50 MG TAB PO SCH (21:19)
[2019-12-20] MEDS: INSULIN DETEMIR (LEVEMIR) 100 UNIT/ML SYR SQ SCH (21:19)
[2019-12-20] MEDS: BENZOCAINE/MENTHOL LOZENG 1 EACH LOZENGE MUCOUS MEM PRN (21:20)
[2019-12-21] MEDS: HEPARIN SODIUM,PORCINE 5,000 UNIT/ML 1 ML VIAL SQ SCH ×2 (00:12→08:55)
[2019-12-21] MEDS: BENZOCAINE/MENTHOL LOZENG 1 EACH LOZENGE MUCOUS MEM PRN (00:17)
[2019-12-21 04:51] LABS: Basophils % (A) 0 %; Eosinophils # (A) 0.1 k/uL (0-0.7); Eosinophils % (A) 1 %; HCT 41.6 % (39.0-53.0); HGB 12.9 gm/dL (13.0-17.5); Hypochromasia Moderate; Lymphocytes # (A) 1.2 k/uL (1.0-4.8); Lymphocytes % (A) 9 %; MCV 93.5 fL (80.0-100.0); Mean Platelet Volume 7.3; Monocytes # (A) 0.6 k/uL (0-1.0); Monocytes % (A) 4 %; Neutrophils # (A) 11.5 k/uL (1.3-7.7); Neutrophils % (A) 85 %; Platelet Count 254 k/uL (150-450); RBC 4.45 m/uL (4.30-5.90); RDW 15.5 % (11.5-15.5); WBC 13.4 k/uL (3.8-10.6)
[2019-12-21 05:45] LABS: African American GFR (CKD) >90 (>60 ml/min/1.73 sqM); Anion Gap 7 mmol/L; Blood Urea Nitrogen 31 mg/dL (9-20); Calcium 9.1 mg/dL (8.4-10.2); Carbon Dioxide 27 mmol/L (22-30); Chloride 99 mmol/L (98-107); Glucose 204 mg/dL (74-99); Non-African American GFR(CKD) 86 (>60 ml/min/1.73 sqM); Sodium 133 mmol/L (137-145)
[2019-12-21 06:36] LABS: Glucose,Whole Blood 193 mg/dL (75-99)
[2019-12-21] MEDS: INSULIN ASPART (NovoLOG) 100 UNIT/ML VIAL SQ SCH ×2 (06:44→12:02)
[2019-12-21] MEDS: INSULIN DETEMIR (LEVEMIR) 100 UNIT/ML SYR SQ SCH (06:44)
[2019-12-21] MEDS: METOPROLOL TARTRATE 50 MG TAB PO SCH (10:16)
[2019-12-21] MEDS: LACTATED RINGERS 1,000 ML IV SCH (11:28)
[2019-12-21 11:37] LABS: Glucose,Whole Blood 196 mg/dL (75-99)
[2019-12-21] MEDS ORDERED: ASPIRIN 81 MG PO SCH (12:15)
[2019-12-21] MEDS ORDERED: INSULIN ASPART (NovoLOG) 100 UNIT/ML VIAL SQ SCH (12:30)
--- NOTE | 2019-12-21 12:43 | P.DS ---
Providers Date of admission: 12/20/19 07:18 Attending physician: Lyle Chand DO Consults: 12/20/19 12:16 Consult Physician Routine Consulting Provider: Xu Hoang Consult Reason/Comments: medical management Do you want consulting provider notified?: Yes [facility] Course: Blas is postoperative day #1 from a right carotid endarterectomy for high- grade internal carotid artery stenosis. He is doing well. He is now motor intact. Vital signs are stable. He denies any specific complaints. Arterial line was removed this morning. The Ly catheter was removed this morning. He has been up to the commode. No acute distress, heart is regular this time. Lungs are clear bilaterally. The right neck incision is clean and dry. The MARITZA is removed. No evidence of hematoma or drainage. No motor intact. Cranial nerves II through XII grossly intact. Normal mood and affect. The patient appears to be in satisfactory and stable condition in the postoper ative period. As long as he is able to void spontaneously, he may be discharged later today. Discharge instructions and wound care were discussed with the patient. He seemingly understands and is willing to proceed. Procedures: Right carotid endarterectomy with patch angioplasty Patient Condition at Discharge: Good Plan - Discharge Summary Discharge Rx Participant: Yes New Discharge Prescriptions: No Action Metoprolol Tartrate [Lopressor] 50 mg PO BID clonazePAM 0.5 mg PO HS PRN PRN Reason: leg spasms Lisinopril 45 mg PO BID Meclizine [Antivert] 25 mg PO DIRECTED #20 tab Aspirin 81 mg PO DAILY #21 chew Atorvastatin [Lipitor] 40 mg PO HS #30 tablet Insulin Detemir (Levemir) [Levemir] 56 unit SQ BID #0 Clopidogrel [Plavix] 75 mg PO HS Discharge Medication List Metoprolol Tartrate [Lopressor] 50 mg PO BID 02/24/19 [History] Lisinopril 45 mg PO BID 12/05/19 [History] clonazePAM 0.5 mg PO HS PRN 12/05/19 [History] Aspirin 81 mg PO DAILY #21 chew 12/08/19 [Rx] Atorvastatin [Lipitor] 40 mg PO HS #30 tablet 12/08/19 [Rx] Insulin Detemir (Levemir) [Levemir] 56 unit SQ BID #0 12/08/19 [Rx] Meclizine [Antivert] 25 mg PO DIRECTED #20 tab 12/08/19 [Rx] Clopidogrel [Plavix] 75 mg PO HS 12/19/19 [History] Follow up Appointment(s)/Referral(s): Lyle Chand DO [STAFF PHYSICIAN] - 2 Weeks Patient Instructions/Handouts: Carotid Endarterectomy (DC) Activity/Diet/Wound Care/Special Instructions: no shaving for 1 week. some numbness on right is normal, use caution when shaving
[2019-12-21 13:03] VITALS: TEMP 99
[2019-12-21 14:35] VITALS: BP 92/55; PULSE 70; RESP 14
--- NOTE | 2019-12-21 17:44 | P.CONS ---
History of Present Illness - Reason for Consult Consult date: 12/21/19 Medical management Requesting physician: Lyle Chand - Chief Complaint Right carotid endarterectomy - History of Present Illness Consultation: This is a very pleasant [address] Palomares. Chronic stable medical conditions include coronary artery disease, COPD, diabetes, hypertension, hyperlipidemia, osteoarthritis obesity. Patient has known carotid artery dis ease. Has prior cardiac stents. Patient underwent right carotid endarterectomy with a patch angioplasty. Postprocedure doing well. No pain. No change in speech. He did tolerate her diet. No neurological symptoms. Comfortable. Review of systems: GEN.: None EYES: None HEENT: None NECK: Dressing over the surgical site RESPIRATORY: None CARDIOVASCULAR: No chest pain GASTROINTESTINAL: None GENITOURINARY: None MUSCULOSKELETAL: Back pain LYMPHATICS: None HEMATOLOGICAL: None PSYCHIATRY: None NEUROLOGICAL: As above Past medical history to include: Coronary artery disease with stent, COPD, diabetes, hyperlipidemia, hypertension, osteoarthritis, lower back pain, carotid artery disease Social history: Patient smoked a pack a day for 30 years stopped 97. No alcohol. . 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 Conjunctiva normal. HEENT: External appearance of nose and ears normal, oral cavity grossly normal. NECK: JVD unable to assess; masses not palpable. Dressing on the right side over the incision site HEART: First and second heart sounds are normal; no edema. LUNGS:[ Respiratory rate normal; decreased breath sounds. ABDOMEN: Soft, nontender, liver spleen not palpable, no masses palpable. PSYCH: Alert and oriented x3; mood and affect normal. NEUROLOGICAL: Cranial nerves grossly intact; no facial asymmetry, power and sensation grossly intact. LYMPHATICS: No lymph nodes palpable in the axilla and neck INVESTIGATIONS, reviewed in the clinical context: White count 13.4 hemoglobin 12.9 potassium 5 creatinine 0.91 [id number]-240, 245, 327, 193, 196 including overnight Assessment: -Significant carotid artery artery stenosis close to 90% on the right side-now with right carotid endarterectomy with patch angioplasty -Morbid obesity BMI 42.2 -Coronary artery disease with a prior history of stent -COPD in an ex-smoker -Diabetes mellitus type 2 chronically on insulin, uncontrolled with hyperglycemia -Hyperlipidemia, -Essential hypertension -Primary osteoarthritis Plan: Home medications resumed. Patient is feeling rather well. Did tolerate his breakfast. Accu-Cheks will be followed. Care was discussed with the patient. Question answered. He is feeling rather well. Thank you Dr. Chand Past Medical History Past Medical History: Coronary Artery Disease (CAD), Chest Pain / Angina, COPD, Diabetes Mellitus, Hyperlipidemia, Hypertension, Myocardial Infarction (MD), Osteoarthritis (OA) Additional Past Medical History / Comment(s): obesity, OA BACK. MONITORING OF CAROTID ARTERIES., vertigo Last Myocardial Infarction Date:: 2012 History of Any Multi-Drug Resistant Organisms: None Reported Past Surgical History: Appendectomy, Heart Catheterization, Heart Catheterization With Stent Additional Past Surgical History / Comment(s): appendectomy at age 16; cardiac stents x2, recent cardiac cath. QUAD CABG 2016. HEMORRHOIDS. Past Anesthesia/Blood Transfusion Reactions: No Reported Reaction Date of Last Stent Placement:: 2012 Past Psychological History: No Psychological Hx Reported Smoking Status: Former smoker Past Alcohol Use History: None Reported Additional Past Alcohol Use History / Comment(s): quit smoking 1996, smoked 1ppd for 30 yrs. Past Drug Use History: None Reported - Past Family History Father Family Medical History: Coronary Artery Disease (CAD) Mother Family Medical History: Cancer, Renal Disease Brother(s) Family Medical History: Cancer Sister(s) Family Medical History: No Reported History Son(s) Family Medical History: Cancer (patient has biological son and a stepson his biological son had thyroid cancer.) Medications and Allergies Home Medications Medication Instructions Recorded Confirmed Type Metoprolol Tartrate [Lopressor] 50 mg PO BID 02/24/19 12/19/19 History Lisinopril 45 mg PO BID 12/05/19 12/19/19 History clonazePAM 0.5 mg PO HS PRN 12/05/19 12/19/19 History Aspirin 81 mg PO DAILY #21 chew 12/08/19 12/19/19 Rx Atorvastatin [Lipitor] 40 mg PO HS #30 tablet 12/08/19 12/19/19 Rx Insulin Detemir (Levemir) [Levemir] 56 unit SQ BID #0 12/08/19 12/19/19 Rx Meclizine [Antivert] 25 mg PO DIRECTED #20 tab 12/08/19 12/19/19 Rx Clopidogrel [Plavix] 75 mg PO HS 12/19/19 12/19/19 History Allergies Allergy/AdvReac Type Severity Reaction Status Date / Time Penicillins Allergy Rash/Hives Verified 12/19/19 08:38 Sulfa (Sulfonamide Allergy Rash/Hives Verified 12/19/19 08:38 Antibiotics) tetracycline Allergy Rash/Hives Verified 12/19/19 08:38 aspirin AdvReac Rash/Hives Verified 12/19/19 08:38 Physical Exam Vitals: Vital Signs Temp Pulse Pulse Resp BP BP Pulse Ox 12/21/19 09:00 86 24 93/54 92 L 12/21/19 08:00 98.2 F 79 17 93/54 92 L 12/21/19 07:00 73 18 92 L 12/21/19 06:00 72 15 94 L 12/21/19 05:00 76 17 91 L 12/21/19 04:00 98.2 F 79 22 92 L 12/21/19 03:00 81 20 94 L 12/21/19 02:00 80 19 92 L 12/21/19 01:00 79 18 92 L 12/21/19 00:38 82 21 92 L 12/21/19 00:00 98.4 F 80 21 92 L 12/20/19 23:00 89 20 92 L 12/20/19 22:00 92 15 91 L 12/20/19 21:00 98 21 90 L 12/20/19 20:00 98.8 F 92 16 90 L 12/20/19 19:00 96 14 94 L 12/20/19 18:00 98 19 92 L 12/20/19 17:00 91 21 91 L 12/20/19 16:00 98.0 F 94 92 14 92 L 12/20/19 15:00 94 19 92 L 12/20/19 14:45 93 20 92 L 12/20/19 14:30 92 16 92 L 12/20/19 14:15 91 23 92 L 12/20/19 14:00 91 18 90 L 12/20/19 13:45 97.7 F 93 92 14 128/51 91 L 12/20/19 13:16 92 18 133/51 96 12/20/19 13:01 88 18 140/52 97 12/20/19 12:46 83 18 164/82 94 L 12/20/19 12:31 82 18 128/56 100 12/20/19 12:13 79 16 136/49 93 L Intake and Output 12/20/19 12/21/19 12/21/19 22:59 06:59 14:59 Intake Total 369 184 174 Output Total 651 509 255 Balance -282 -325 -81 Intake: IV 169 184 49 Lactated Ringers 1,000 ml 160 160 40 @ 20 mls/hr IV .Q24H [facility] Rx#:[id number] artline flush 9 24 9 Oral 200 125 Output: Drainage 26 4 Right 26 4 Urine 625 505 255 Other: Voiding Method Indwelling Catheter Indwelling Catheter Weight 139.1 kg ABP, PAP, CO, CI - Last 8 Hours Arterial Blood Pressure 81/72 Arterial Blood Pressure 135/75 Arterial Blood Pressure 106/51 Arterial Blood Pressure 117/53 Arterial Blood Pressure 116/52 Arterial Blood Pressure 117/56 Arterial Blood Pressure 113/59 Results CBC & Chem 7: 12/21/19 04:40 12/21/19 04:40 Labs: Abnormal Lab Results - Last 24 Hours (Table) 12/20/19 12/20/19 12/20/19 Range/Units 12:52 13:42 14:07 WBC (3.8-10.6) k/uL Hgb (13.0-17.5) gm/dL Neutrophils # (1.3-7.7) k/uL Lymphocytes # 0.8 L (1.0-4.8) k/uL Sodium (137-145) mmol/L BUN (9-20) mg/dL Glucose (74-99) mg/dL POC Glucose (mg/dL) 252 H 268 H (75-99) mg/dL 12/20/19 12/20/19 12/20/19 Range/Units 14:45 16:56 20:45 WBC (3.8-10.6) k/uL Hgb (13.0-17.5) gm/dL Neutrophils # (1.3-7.7) k/uL Lymphocytes # (1.0-4.8) k/uL Sodium 134 L (137-145) mmol/L BUN 28 H (9-20) mg/dL Glucose 272 H (74-99) mg/dL POC Glucose (mg/dL) 245 H 327 H (75-99) mg/dL 12/21/19 12/21/19 12/21/19 Range/Units 04:40 04:40 06:35 WBC 13.4 H (3.8-10.6) k/uL Hgb 12.9 L (13.0-17.5) gm/dL Neutrophils # 11.5 H (1.3-7.7) k/uL Lymphocytes # (1.0-4.8) k/uL Sodium 133 L (137-145) mmol/L BUN 31 H (9-20) mg/dL Glucose 204 H (74-99) mg/dL POC Glucose (mg/dL) 193 H (75-99) mg/dL
[2019-12-22] MEDS ORDERED: LISINOPRIL 20 MG TAB PO SCH (09:00)
== END 2019-12-21 16:02 | disposition home or self-care (01) | DRG 38 ==
LOC: 2ORMAIN 12-20 07:18 → 2SICU 12-20 12:28
PROVIDERS: ADMIT Surgery; ATTEND Surgery
PROC: 03CK0ZZ Extirpation of Matter from Right Internal Carotid Artery, Open Approach (ICD-10-PCS; principal; 2019-12-20 08:40)
PROC: 03UK0KZ Supplement Right Internal Carotid Artery with Nonautologous Tissue Substitute, Open Approach (ICD-10-PCS; principal; 2019-12-20 08:40)
DX: I65.23 Occlusion and stenosis of bilateral carotid arteries (principal); Z68.41 Body mass index [BMI] 40.0-44.9, adult; E11.65 Type 2 diabetes mellitus with hyperglycemia; E66.01 Morbid (severe) obesity due to excess calories; I10 Essential (primary) hypertension; E78.5 Hyperlipidemia, unspecified; I25.10 Atherosclerotic heart disease of native coronary artery without angina pectoris; J44.9 Chronic obstructive pulmonary disease, unspecified; M19.91 Primary osteoarthritis, unspecified site; I25.2 Old myocardial infarction; Z79.4 Long term (current) use of insulin; Z79.82 Long term (current) use of aspirin; Z79.899 Other long term (current) drug therapy; Z82.49 Family history of ischemic heart disease and other diseases of the circulatory system; Z87.891 Personal history of nicotine dependence; Z95.1 Presence of aortocoronary bypass graft; Z95.5 Presence of coronary angioplasty implant and graft; Z90.49 Acquired absence of other specified parts of digestive tract; Z98.890 Other specified postprocedural states; Z80.8 Family history of malignant neoplasm of other organs or systems; Z11.59 Encounter for screening for other viral diseases; Z88.6 Allergy status to analgesic agent; Z88.1 Allergy status to other antibiotic agents; Z88.0 Allergy status to penicillin; Z88.2 Allergy status to sulfonamides
CPT/HCPCS: 80048; 85025; 86850; 86900; 86901; 87635; 88304; 88311

== ENCOUNTER → 2020-02-19 | Outpatient (CLI) | payer MEDICARE ==
[2020-02-19 15:27] LABS: Anisocytosis Slight; Basophils # (A) 0.1 k/uL (0-0.2); Basophils % (A) 1 %; Eosinophils # (A) 0.2 k/uL (0-0.7); Eosinophils % (A) 2 %; HCT 47.3 % (39.0-53.0); HGB 14.8 gm/dL (13.0-17.5); Hypochromasia Moderate; Lymphocytes # (A) 1.9 k/uL (1.0-4.8); Lymphocytes % (A) 20 %; MCH 29.2 pg (25.0-35.0); MCHC 31.3 g/dL (31.0-37.0); MCV 93.1 fL (80.0-100.0); Mean Platelet Volume 7.3; Monocytes # (A) 0.5 k/uL (0-1.0); Monocytes % (A) 5 %; Neutrophils # (A) 6.9 k/uL (1.3-7.7); Neutrophils % (A) 71 %; Platelet Count 271 k/uL (150-450); RBC 5.08 m/uL (4.30-5.90); WBC 9.7 k/uL (3.8-10.6)
[2020-02-19 15:29] LABS: Potassium 5.8 mmol/L (3.5-5.1)
== END | disposition home or self-care (01) ==
LOC: LABPAT 14:58
PROVIDERS: ATTEND Surgery
DX: Z01.818 Encounter for other preprocedural examination (principal); U07.1 COVID-19; I65.22 Occlusion and stenosis of left carotid artery
CPT/HCPCS: 36415; 80051; 82565; 84520; 85025

== ENCOUNTER 2020-02-20 08:32 | Inpatient (IN) | payer MEDICARE ==
[2020-02-16 16:16] VITALS: BMI 39.4
[~2020-02-20 08:32] MED LIST changes: -ALPRAZolam 0.25 MG TAB PO PRN; -ASPIRIN 325 MG TAB PO STA; +DEXAMETHASONE SOD PHOSPHATE 10 MG/ML 1 ML VIAL IV ONE; +HYDROmorphone 0.5 MG/0.5 ML SYRINGE IVP PRN; +LACTATED RINGERS 1,000 ML IV SCH; +MIDAZOLAM 2 MG/2 ML VIAL IV PRN; +ONDANSETRON 4 MG/2 ML VIAL IVP ONE; -SODIUM CHLORIDE 0.9% 1,000 ML in EMPTY BAG 1 BAG IV ONE
[2020-02-20 09:07] LABS: Glucose,Whole Blood 285 mg/dL (75-99)
[2020-02-20] MEDS ORDERED: ONDANSETRON 4 MG/2 ML VIAL ONE (09:19)
[2020-02-20] MEDS ORDERED: INSULIN ASPART (NovoLOG) 100 UNIT/ML VIAL SQ ONE ×2 (09:42→13:32)
[2020-02-20] MEDS ORDERED: GLYCOPYRROLATE 0.2 MG/ML 2 ML VIAL ONE (10:37)
[2020-02-20] MEDS ORDERED: ROCURONIUM BROMIDE 10 MG/ML 5 ML VIAL IV ONE (10:37)
[2020-02-20] MEDS ORDERED: hydrALAZINE HCL 20 MG/ML 1 ML VIAL ONE (10:37)
[2020-02-20] MEDS ORDERED: fentaNYL (PF) 50 MCG/ML 2 ML AMP ONE (10:37)
[2020-02-20] MEDS ORDERED: SUCCINYLCHOLINE CHLORIDE 100 MG/5 ML SYR IV ONE (10:37)
[2020-02-20] MEDS ORDERED: NEOSTIGMINE 1 MG/ML 10 ML VIAL ONE (10:37)
[2020-02-20] MEDS ORDERED: LIDOCAINE 1% INJ 10MG/ML (20 ML MDV) ONE (10:37)
[2020-02-20] MEDS ORDERED: MIDAZOLAM 2 MG/2 ML VIAL ONE (10:37)
[2020-02-20] MEDS ORDERED: HEPARIN SODIUM,PORCINE 10,000 UNIT/ML 1 ML VIAL ONE (10:37)
[2020-02-20] MEDS ORDERED: HYDROmorphone (PF) 1 MG/ML ONE (10:37)
[2020-02-20] MEDS ORDERED: PROPOFOL 10 MG/ML 20 ML VIAL IV ONE (10:37)
[2020-02-20] MEDS ORDERED: LABETALOL 5 MG/ML VIAL MDV ONE (10:37)
[2020-02-20] MEDS ORDERED: PHENYLEPHRINE-0.9% NACL SYG 1 MG/10 ML SYRINGE ONE (10:37)
[2020-02-20] MEDS ORDERED: SODIUM CHLORIDE 0.9% 500 ML 500 ML with ceFAZolin 2,000 MG IRRIGATION ONE ×2 (11:24)
[2020-02-20] MEDS ORDERED: GELATIN SPONGE,ABSORB (LARGE) 1 EACH SPONGE MISCELLANE ONE (12:39)
[2020-02-20] MEDS ORDERED: THROMBIN (BOVINE) 5,000 UNIT VIAL MISCELLANE ONE (12:39)
[2020-02-20] MEDS ORDERED: LACTATED RINGERS 1,000 ML IV ONE (12:49)
[2020-02-20] MEDS ORDERED: MORPHINE SULFATE 2 MG/ML SYRINGE IVP PRN (13:03)
[2020-02-20] MEDS ORDERED: TRIMETHOBENZAMIDE 100 MG/ML 2 ML VIAL IM PRN (13:03)
[2020-02-20] MEDS ORDERED: MAG HYDROX/AL HYDROX/SIMETH 30 ML CUP PO PRN (13:03)
[2020-02-20] MEDS ORDERED: BENZOCAINE/MENTHOL LOZENG 1 EACH LOZENGE MUCOUS MEM PRN (13:03)
[2020-02-20] MEDS ORDERED: ACETAMINOPHEN TAB 325 MG TAB PO PRN (13:03)
[2020-02-20] MEDS ORDERED: HYDROcodone/APAP 5-325MG 1 EACH TAB PO PRN (13:03)
--- NOTE | 2020-02-20 13:12 | P.OP ---
Description of Procedure: Date of Procedure: 02/20/2020 Preoperative Diagnosis: Left Internal carotid artery stenosis Postoperative Diagnosis: Same Procedure(s) Performed: Last carotid endarterectomy with patch angioplasty Anesthesia: LYLA Surgeon: Lyle Chand Estimated Blood Loss (ml): 100 IV Fluids: See anesthesia record Pathology: Left carotid plaque Condition: stable Disposition: PACU Indications for Procedure: 69-year-old gentleman with history of bilateral carotid artery stenosis with previous TIA and right carotid endarterectomy with patch angioplasty presents back to the operating room for his left carotid endarterectomy due to severe stenosis greater than 80% seen on CT angiogram and carotid Doppler. Description of Procedure: After written informed consent was obtained the patient all risks benefits and competitions were described the patient is brought to the operative suite and laid in a supine position. The area of the neck was prepped and draped in usual sterile fashion after appropriate anesthetic was performed per the anesthesiologist. A timeout was performed in normal fashion antibiotics were administered prior to incision. An oblique incision was then created just anterior to the sternocleidomastoid musculature with a 10 blade scalpel and dissection was carried down to the carotid sheath. The carotid sheath was then entered after facial vein was located and suture ligated in normal fashion. The common carotid, internal carotid, external carotid and superior thyroid arteries were located and dissected free in a meticulous fashion circumferentially and controlled with vessel loops. Attention was then placed to locating the vagus nerve as well as hypoglossal nerve which were both spared. Once controlled patient was administered heparin and followed with ACTs for appropriate heparinization. Once ACT was above 200 the proximal and distal aspects of the dissection were then controlled with vascular clamps. Arteriotomy was then created with 11 blade scalpel and extended with Parrish Upton scissors. Utilizing pressure tubing stump pressures were obtained and were left. No shunt was required and endart erectomy was then performed with a Napier and elevator. The plaque was then feathered at the distal aspect and the internal carotid artery and removed. The area was copiously irrigated with heparinized saline and all free debris was removed. A 7-0 Prolene suture was then placed to tack the distal aspect of the dissection at the internal carotid artery. A 0.8 x 8 cm bovine pericardial patch was then chosen and patch angioplasty was performed with 6-0 Prolene suture in a running fashion. Prior to last sutures being placed the inflow was released flushing any free debris out of the patch. This was reclamped and the internal carotid artery was released revealing good brisk flow and was once again reclamped. The external carotid and superior thyroid artery were then released followed by the common carotid artery to allow any free debris to be flushed into the external system. Final sutures were placed and secured. Internal carotid artery control was then released. Good pulsatile flow was noted through the patch and a Doppler was utilized demonstrating good brisk flow into the internal, external carotid arteries without any signs of obstruction. Hemostasis was then assured with Gelfoam and thrombin. A 10-Setswana MARITZA drain was then placed in normal fashion and secured with 3-0 nylon suture. The incision was then closed in a multilayer fashion after hemostasis was assured. The skin was then cleansed and dressings were placed. Patient tolerated the procedure well and was following commands and moving all extremities. Patient was then sent to PACU for recovery.
[2020-02-20] MEDS ORDERED: LACTATED RINGERS 1,000 ML IV SCH (13:15)
[2020-02-20 13:30] LABS: Glucose,Whole Blood 380 mg/dL (75-99)
[2020-02-20 14:43] LABS: Glucose,Whole Blood 387 mg/dL (75-99)
[2020-02-20 15:01] LABS: Basophils % (A) 0 %; Eosinophils # (A) 0.1 k/uL (0-0.7); Eosinophils % (A) 1 %; HCT 43.6 % (39.0-53.0); HGB 13.4 gm/dL (13.0-17.5); Hypochromasia Marked; Lymphocytes # (A) 1.7 k/uL (1.0-4.8); Lymphocytes % (A) 17 %; MCH 29.1 pg (25.0-35.0); MCHC 30.7 g/dL (31.0-37.0); MCV 94.9 fL (80.0-100.0); Mean Platelet Volume 8.4; Monocytes # (A) 0.2 k/uL (0-1.0); Monocytes % (A) 2 %; Neutrophils # (A) 8.2 k/uL (1.3-7.7); Neutrophils % (A) 79 %; Platelet Count 254 k/uL (150-450); RBC 4.59 m/uL (4.30-5.90); RDW 15.9 % (11.5-15.5); WBC 10.3 k/uL (3.8-10.6)
[2020-02-20] MEDS: INSULIN ASPART (NovoLOG) 100 UNIT/ML VIAL SQ SCH ×3 (15:01→20:42)
[2020-02-20 15:23] LABS: African American GFR (CKD) >90 (>60 ml/min/1.73 sqM); Anion Gap 10 mmol/L; Blood Urea Nitrogen 29 mg/dL (9-20); Calcium 8.8 mg/dL (8.4-10.2); Carbon Dioxide 21 mmol/L (22-30); Chloride 105 mmol/L (98-107); Glucose 377 mg/dL (74-99); Non-African American GFR(CKD) 88 (>60 ml/min/1.73 sqM); Potassium 5.7 mmol/L (3.5-5.1); Sodium 136 mmol/L (137-145)
--- NOTE | 2020-02-20 16:16 | P.CNPUL ---
History of Present Illness Consult date: 02/20/20 Reason for consult: other (ICU management, patient is status post left carotid endarterectomy) Chief complaint: Left carotid endarterectomy postoperative day #0 History of present illness: This is a 69-year-old white male, with history of bilateral carotid artery disease stenosis with previous TIA, previous right carotid endarterectomy and patch angioplasty, patient underwent this time left carotid endarterectomy due to severe stenosis greater than 80% on CT angiogram and carotid Doppler. Postoperatively patient was admitted to the ICU, and I was asked to see him on consultation. Patient was examined in the ICU, seems to be doing extremely well, asymptomatic, denies any shortness of breath denies any chest pain. And he is hemodynamically stable. Patient had previous quadruple CABG back in 2016, and we have seen him on consultation. He also had previous stent placement in 2012. His past medical history is mostly significant for coronary artery disease, COPD, hypertension, morbid obesity, and type 2 diabetes. Strong family history of coronary artery disease. Review of Systems Constitutional: Negative HEENT: Negative Pulmonary: Negative Cardiac: Negative GI: Negative Genitourinary: Negative Musculoskeletal: Negative Skin: Negative Urologic: Negative Psychiatric: Negative Hematologic: Negative Endocrine: Negative except for history of type 2 diabetes. Past Medical History Past Medical History: Coronary Artery Disease (CAD), Chest Pain / Angina, COPD, Diabetes Mellitus, Hyperlipidemia, Hypertension, Myocardial Infarction ([place]), Osteoarthritis (OA) Additional Past Medical History / Comment(s): obesity, OA BACK. MONITORING OF CAROTID ARTERIES., vertigo Last Myocardial Infarction Date:: 2012 History of Any Multi-Drug Resistant Organisms: None Reported Past Surgical History: Appendectomy, Heart Catheterization, Heart Huyen terization With Stent Additional Past Surgical History / Comment(s): right carotid Endarterectomy, appendectomy, cardiac stents x2, QUAD CABG 2017. HEMORRHOIDECTOMY Past Anesthesia/Blood Transfusion Reactions: No Reported Reaction Date of Last Stent Placement:: 2012 Smoking Status: Former smoker - Past Family History Father Family Medical History: Coronary Artery Disease (CAD) Mother Family Medical History: Cancer, Renal Disease Brother(s) Family Medical History: Cancer Sister(s) Family Medical History: No Reported History Son(s) Family Medical History: Cancer (patient has biological son and a stepson his biological son had thyroid cancer.) Medications and Allergies Home Medications Medication Instructions Recorded Confirmed Type Metoprolol Tartrate [Lopressor] 50 mg PO BID 02/24/19 02/16/20 History Lisinopril 45 mg PO BID 12/05/19 02/16/20 History Aspirin 81 mg PO DAILY #21 chew 12/08/19 02/16/20 Rx Clopidogrel [Plavix] 75 mg PO HS 12/19/19 02/16/20 History Insulin Detemir (Levemir) [Levemir] 70 unit SQ BID 02/16/20 02/16/20 History Allergies Allergy/AdvReac Type Severity Reaction Status Date / Time Penicillins Allergy Rash/Hives Verified 02/16/20 16:10 Sulfa (Sulfonamide Allergy Rash/Hives Verified 02/16/20 16:10 Antibiotics) tetracycline Allergy Rash/Hives Verified 02/16/20 16:10 Physical Exam Vitals: Vital Signs Temp Pulse Pulse Pulse Resp BP BP 02/20/20 15:00 98.1 F 85 20 112/55 02/20/20 14:50 84 22 02/20/20 14:40 88 22 02/20/20 14:18 87 18 02/20/20 14:03 92 18 02/20/20 13:48 89 16 02/20/20 13:33 91 18 02/20/20 13:18 93 18 02/20/20 13:03 99.2 F 88 14 02/20/20 09:12 98 F 73 16 143/66 BP BP Pulse Ox 02/20/20 15:00 95 02/20/20 14:50 02/20/20 14:40 02/20/20 14:18 116/52 122/59 97 02/20/20 14:03 125/53 125/58 95 02/20/20 13:48 123/53 124/58 95 02/20/20 13:33 129/46 134/61 98 02/20/20 13:18 145/76 140/64 99 02/20/20 13:03 147/75 143/65 95 02/20/20 09:12 92 L Intake and Output 02/20/20 02/20/20 02/20/20 06:59 14:59 22:59 Intake Total 1251 80 Output Total 925 75 Balance 326 5 Intake: IV 1251 80 Lactated Ringers 1,000 ml 80 @ 80 mls/hr IV .[id number] [facility] Rx#:[id number] Output: Urine 825 75 Estimated Blood Loss 100 Other: Voiding Method Indwelling Catheter Weight 134.5 kg ABP, PAP, CO, CI - Last 8 Hours Arterial Blood Pressure 101/45 Arterial Blood Pressure 106/48 Physical Exam: Revealed a 69-year-old white male obese in no distress. Head: Atraumatic, normocephalic. HEENT:[Neck is supple.] [No neck masses.] [No thyromegaly.] [No JVD.] Left cervical dressing is noted, surgical site was not examined. Chest: [Clear throughout, no crackles, no rhonchi, no wheezes.] Symmetrical chest expansion. Cardiac Exam: [Normal S1 and S2, no S3 gallop, no murmur.] Abdomen: Obese, [Soft, nontender, no megaly, no rebound, no guarding, normal bowel sounds.] Extremities: [No clubbing, trace edema, no cyanosis.] Neurological Exam: [No focal neurologic deficit.] Alert oriented 3. Psychiatric: Normal mood, affect and normal mental status examination. Results - Laboratory Findings CBC and BMP: 02/20/20 13:45 02/20/20 13:45 Abnormal lab findings: Abnormal Labs 02/20/20 02/20/20 02/20/20 08:55 13:27 13:45 MCHC RDW Neutrophils # Sodium 136 L Potassium 5.7 H Carbon Dioxide 21 L BUN 29 H Glucose 377 H POC Glucose (mg/dL) 285 H 380 H 02/20/20 02/20/20 13:45 14:42 MCHC 30.7 L RDW 15.9 H Neutrophils # 8.2 H Sodium Potassium Carbon Dioxide BUN Glucose POC Glucose (mg/dL) 387 H Assessment and Plan Assessment: Impression: Status post left carotid endarterectomy with patch angioplasty postoperative day #0. History of multivessel coronary artery disease and previous CABG with 4 vessel bypass in 2017. Type 2 diabetes. Obesity. Ex-smoker History of moderate severe COPD, asymptomatic. Benign essential hypertension. History of ALLERGY to aspirin products. Recommendation: Continue present postoperative care. Continue to monitor in the ICU. Resume home meds. Monitor blood pressure and sugars closely. Incentive spirometer. Possible discharge planning in the next 24 hours. We will continue to follow. Time with Patient: Greater than 30
[2020-02-20] MEDS: SODIUM CHLORIDE 0.9% 1,000 ML IV SCH (16:33)
[2020-02-20 16:52] LABS: Glucose,Whole Blood 362 mg/dL (75-99)
[2020-02-20 20:29] LABS: Glucose,Whole Blood 350 mg/dL (75-99)
[2020-02-20] MEDS: INSULIN DETEMIR (LEVEMIR) 100 UNIT/ML SYR SQ SCH (20:42)
[2020-02-20] MEDS: METOPROLOL TARTRATE 50 MG TAB PO SCH (20:46)
[2020-02-20] MEDS: LISINOPRIL 10 MG TAB PO SCH (20:46)
--- NOTE | 2020-02-20 20:57 | P.CONS ---
History of Present Illness - Reason for Consult Consult date: 02/20/20 Medical management Requesting physician: Lyle Chand - Chief Complaint Left carotid endarterectomy - History of Present Illness History of presenting complaint: This is a very pleasant [address] Palomares. Chronic stable medical conditions include coronary artery disease, COPD, diabetes, hypertension, hyperlipidemia, osteoarthritis obesity. Patient has known carotid artery disease. Has prior cardiac stents. Patient is known to have greater than 80% left carotid artery stenosis as seen on CT angiogram and carotid Doppler. Patient underwent left carotid endarterectomy with a patch angioplasty earlier today. Postprocedure sitting up in bed. In the ICU. No dizziness no lightheadedness. No neck pain. No stridor. Did tolerate clear liquids. Review of systems: GEN.: None EYES: None HEENT: None NECK: None RESPIRATORY: None CARDIOVASCULAR: None GASTROINTESTINAL: None GENITOURINARY: None MUSCULOSKELETAL: Joint pains LYMPHATICS: None HEMATOLOGICAL: None PSYCHIATRY: None NEUROLOGICAL: None Past medical history to include: Carotid artery stenosis, morbid obesity, coronary artery disease with stent, COPD, diabetes mellitus type 2, hyperlipidemia, essential hypertension, primary osteoarthritis Social history: Patient smoked a pack a day for 30 years stopped in 1996. . 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 Physical examination: VITAL SIGNS: Afebrile, 86, 19, 115/60, 95% on nasal cannula GENERAL: BMI 41.4, reclining in bed EYES: Pupils equal. Conjunctiva normal. HEENT: External appearance of nose and ears normal, oral cavity grossly normal. NECK: JVD not raised; masses not palpable. Dressing over the left incision site HEART: First and second heart sounds are normal; no edema. LUNGS:[ Respiratory rate normal; decreased breath sounds. ABDOMEN: Soft, nontender, liver spleen not palpable, no masses palpable. PSYCH: Alert and oriented x3; mood and affect normal. INVESTIGATIONS, reviewed in the clinical context: White count 10.3 hemoglobin 13.4 potassium 5.7 creatinine 0.88 glucose 377 Assessment: -Left carotid endarterectomy with patch angioplasty -Bilateral carotid artery stenosis -Morbid obesity BMI 41.4 -Coronary artery disease with a prior history of stent -COPD in an ex-smoker -Diabetes mellitus type 2 chronically on insulin, uncontrolled with hyperglycemia -Hyperlipidemia, -Essential hypertension Primary osteoarthritis Plan: Patient's insulin has been resumed. Accu-Cheks will be followed. Diet was advanced as per Dr. Chand. Care was discussed with the patient. Pneumatic compression stockings for DVT prophylaxis. Thank you Dr. Chand Past Medical History Past Medical History: Coronary Artery Disease (CAD), Chest Pain / Angina, COPD, Diabetes Mellitus, Hyperlipidemia, Hypertension, Myocardial Infarction ([place]), Osteoarthritis (OA) Additional Past Medical History / Comment(s): obesity, OA BACK. MONITORING OF CAROTID ARTERIES., vertigo Last Myocardial Infarction Date:: 2012 History of Any Multi-Drug Resistant Organisms: None Reported Past Surgical History: Appendectomy, Heart Catheterization, Heart Catheterization With Stent Additional Past Surgical History / Comment(s): right carotid Endarterectomy, appendectomy, cardiac stents x2, QUAD CABG 2016. HEMORRHOIDECTOMY Past Anesthesia/Blood Transfusion Reactions: No Reported Reaction Date of Last Stent Placement:: 2012 Smoking Status: Former smoker - Past Family History Father Family Medical History: Coronary Artery Disease (CAD) Mother Family Medical History: Cancer, Renal Disease Brother(s) Family Medical History: Cancer Sister(s) Family Medical History: No Reported History Son(s) Family Medical History: Cancer (patient has biological son and a stepson his biological son had thyroid cancer.) Medications and Allergies Home Medications Medication Instructions Recorded Confirmed Type Metoprolol Tartrate [Lopressor] 50 mg PO BID 02/24/19 02/16/20 History Lisinopril 45 mg PO BID 12/05/19 02/16/20 History Aspirin 81 mg PO DAILY #21 chew 12/08/19 02/16/20 Rx Clopidogrel [Plavix] 75 mg PO HS 12/19/19 02/16/20 History Insulin Detemir (Levemir) [Levemir] 70 unit SQ BID 02/16/20 02/16/20 History Allergies Allergy/AdvReac Type Severity Reaction Status Date / Time Penicillins Allergy Rash/Hives Verified 02/16/20 16:10 Sulfa (Sulfonamide Allergy Rash/Hives Verified 02/16/20 16:10 Antibiotics) tetracycline Allergy Rash/Hives Verified 02/16/20 16:10 Physical Exam Vitals: Vital Signs Temp Pulse Pulse Pulse Resp BP BP 02/20/20 19:00 86 19 115/60 02/20/20 18:00 84 20 105/56 02/20/20 17:00 83 19 98/52 06/30/20 16:00 86 11 L 99/65 02/20/20 15:30 83 12 02/20/20 15:00 98.1 F 85 20 112/55 02/20/20 14:50 84 22 02/20/20 14:40 88 22 02/20/20 14:18 87 18 02/20/20 14:03 92 18 02/20/20 13:48 89 16 02/20/20 13:33 91 18 02/20/20 13:18 93 18 02/20/20 13:03 99.2 F 88 14 02/20/20 09:12 98 F 73 16 143/66 BP BP Pulse Ox 02/20/20 19:00 95 02/20/20 18:00 95 02/20/20 17:00 94 L 02/20/20 16:00 93 L 02/20/20 15:30 93 L 02/20/20 15:00 95 02/20/20 14:50 02/20/20 14:40 02/20/20 14:18 116/52 122/59 97 02/20/20 14:03 125/53 125/58 95 02/20/20 13:48 123/53 124/58 95 02/20/20 13:33 129/46 134/61 98 02/20/20 13:18 145/76 140/64 99 02/20/20 13:03 147/75 143/65 95 02/20/20 09:12 92 L Intake and Output 02/20/20 02/20/20 02/20/20 06:59 14:59 22:59 Intake Total 1251 615 Output Total 925 475 Balance 326 140 Intake: IV 1251 415 Lactated Ringers 1,000 ml 160 @ 80 mls/hr IV .[id number] [facility] Rx#:[id number] Pressure Bag 15 Sodium Chloride 0.9% 1, 240 000 ml @ 80 mls/hr IV . [id number] [facility] Rx#:[id number] Oral 200 Output: Drainage 10 Left Neck 10 Urine 825 465 Estimated Blood Loss 100 Other: Voiding Method Indwelling Catheter Weight 134.5 kg ABP, PAP, CO, CI - Last 8 Hours Arterial Blood Pressure 109/46 Arterial Blood Pressure 134/59 Arterial Blood Pressure 118/55 Arterial Blood Pressure 94/43 Arterial Blood Pressure 102/46 Arterial Blood Pressure 101/45 Arterial Blood Pressure 106/48 Results CBC & Chem 7: 02/20/20 13:45 02/20/20 13:45 Labs: Abnormal Lab Results - Last 24 Hours (Table) 02/20/20 02/20/20 02/20/20 Range/Units 08:55 13:27 13:45 MCHC (31.0-37.0) g/dL RDW (11.5-15.5) % Neutrophils # (1.3-7.7) k/uL Sodium 136 L (137-145) mmol/L Potassium 5.7 H (3.5-5.1) mmol/L Carbon Dioxide 21 L (22-30) mmol/L BUN 29 H (9-20) mg/dL Glucose 377 H (74-99) mg/dL POC Glucose (mg/dL) 285 H 380 H (75-99) mg/dL 02/20/20 02/20/20 02/20/20 Range/Units 13:45 14:42 16:50 MCHC 30.7 L (31.0-37.0) g/dL RDW 15.9 H (11.5-15.5) % Neutrophils # 8.2 H (1.3-7.7) k/uL Sodium (137-145) mmol/L Potassium (3.5-5.1) mmol/L Carbon Dioxide (22-30) mmol/L BUN (9-20) mg/dL Glucose (74-99) mg/dL POC Glucose (mg/dL) 387 H 362 H (75-99) mg/dL 02/20/20 Range/Units 20:27 MCHC (31.0-37.0) g/dL RDW (11.5-15.5) % Neutrophils # (1.3-7.7) k/uL Sodium (137-145) mmol/L Potassium (3.5-5.1) mmol/L Carbon Dioxide (22-30) mmol/L BUN (9-20) mg/dL Glucose (74-99) mg/dL POC Glucose (mg/dL) 350 H (75-99) mg/dL
[2020-02-20] MEDS ORDERED: CLOPIDOGREL 75 MG TAB PO SCH (21:00)
[2020-02-21 06:24] LABS: Glucose,Whole Blood 209 mg/dL (75-99)
[2020-02-21] MEDS: SODIUM CHLORIDE 0.9% 1,000 ML IV SCH (06:29)
[2020-02-21] MEDS: INSULIN ASPART (NovoLOG) 100 UNIT/ML VIAL SQ SCH ×2 (06:31→12:46)
[2020-02-21] MEDS: METOPROLOL TARTRATE 50 MG TAB PO SCH (08:19)
[2020-02-21] MEDS: LISINOPRIL 10 MG TAB PO SCH (08:19)
[2020-02-21] MEDS ORDERED: ASPIRIN 81 MG PO SCH (09:00)
--- NOTE | 2020-02-21 11:39 | P.DS ---
Providers Date of admission: 02/20/20 08:32 Expected date of discharge: 02/21/20 Attending physician: Lyle Chand DO Consults: 02/20/20 13:03 Consult Physician Routine Consulting Provider: Johnathan Storey Consult Reason/Comments: icu management Do you want consulting provider notified?: Yes 02/20/20 13:07 Consult Physician Routine Consulting Provider: Xu Hoang Consult Reason/Comments: medical management Do you want consulting provider notified?: Yes Primary care physician: Stated None Hospital Course: The patient is a 69-year-old male who presented to the hospital yesterday for a scheduled outpatient left carotid endarterectomy with Dr. Chand for severe left ICA stenosis. The patient underwent his left carotid endarterectomy yesterday without any problems. He has a past medical history that includes coronary artery disease, COPD, diabetes, hypertension, hyperlipidemia, osteoarthritis, and obesity. He has also a past history of a right carotid endarterectomy on 12/20/2019. He was brought to the intensive care unit after PACU in stable condition. He had some hypotensive events through the night. However blood pressures have been replaced now. He tolerated his breakfast this morning, Ly catheter has been discontinued. Assessment: Patient was seen and evaluated in the ICU. Patient was sitting up in the reclining chair. Dr. Ly examined patient and removed dressing and MARITZA drain. New dressing applied. Patient had Ly catheter discontinued this morning, tolerated his breakfast. A-line to be discontinued. Patient had some hypotensive episodes through the night, blood pressure medications have been adjusted. Patient has no focal deficits. Denies any shortness of breath or chest pain. Denies any pain. General appearance: The patient is alert, oriented, in no acute distress. Obese. HET: Head is normocephalic and atraumatic. Pupils are equal and reactive. Neck: Supple without lymphadenopathy. Trachea midline. Left incisional site clean dry and intact, dressing and MARITZA drain was removed. MARITZA drain had approximately 20 mL of serosanguineous fluid. Heart: S1 S2. Regular rate and rhythm. Lungs: No crackles or wheezes are heard. Abdomen: Soft, nontender, nondistended with bowel sounds. Extremities: Normal skin color and turgor. No cyanosis, rash, ulceration, clubbing, or edema. Radial and pedal pulses are 2/4 bilaterally. Neurological: No focal deficits. Strength and sensation are grossly intact. Assessment: 1. Severe left internal carotid artery stenosis status post op day #1 left carotid endarterectomy 2. Coronary artery disease 3. Hypertension 4. COPD 5. Diabetes 6. Hyperlipidemia 7. Obesity Plan: Patient may be discharged after lunch his blood pressure remaines stable and he is able to void. Patient is instructed for no shower at least 24 hours. No tub bathing. He will remain on his current medication regimen, of aspirin, Plavix, and statin. He is to follow-up with Dr. Chand 1-2 weeks. The above dictated assessment and findings were discussed with Dr. Ly. The impression and plan of care have been directed as dictated. Procedures: Left carotid endarterectomy with patch angioplasty Patient Condition at Discharge: Good Plan - Discharge Summary Discharge Rx Participant: No New Discharge Prescriptions: New Atorvastatin [Lipitor] 40 mg PO HS #30 tablet Continue Metoprolol Tartrate [Lopressor] 50 mg PO BID Lisinopril 45 mg PO BID Aspirin 81 mg PO DAILY #21 chew Clopidogrel [Plavix] 75 mg PO HS Insulin Detemir (Levemir) [Levemir] 70 unit SQ BID Discharge Medication List Metoprolol Tartrate [Lopressor] 50 mg PO BID 02/24/19 [History] Lisinopril 45 mg PO BID 12/05/19 [History] Aspirin 81 mg PO DAILY #21 chew 12/08/19 [Rx] Clopidogrel [Plavix] 75 mg PO HS 12/19/19 [History] Insulin Detemir (Levemir) [Levemir] 70 unit SQ BID 02/16/20 [History] Atorvastatin [Lipitor] 40 mg PO HS #30 tablet 02/21/20 [Rx] Follow up Appointment(s)/Referral(s): Lyle Chand DO [STAFF PHYSICIAN] - 1 Week (1-2 weeks) Activity/Diet/Wound Care/Special Instructions: May keep dressing applied for 24 hours. No showering for 24 hours. No tub bathing. No heavy lifting or strenuous activity until further evaluation per Dr. Chand. Discharge Disposition: HOME SELF-CARE
[2020-02-21 12:33] LABS: Glucose,Whole Blood 259 mg/dL (75-99)
[2020-02-21] MEDS: INSULIN DETEMIR (LEVEMIR) 100 UNIT/ML SYR SQ SCH (12:46)
--- NOTE | 2020-02-21 12:52 | P.PN ---
Subjective Progress Note Date: 02/21/20 Principal diagnosis: Status post left carotid endarterectomy This is a 69-year-old white male, with history of bilateral carotid artery disease stenosis with previous TIA, previous right carotid endarterectomy and patch angioplasty, patient underwent this time left carotid endarterectomy due to severe stenosis greater than 80% on CT angiogram and carotid Doppler. Postoperatively patient was admitted to the ICU, and I was asked to see him on consultation. Patient was examined in the ICU, seems to be doing extremely well, asymptomatic, denies any shortness of breath denies any chest pain. And he is hemodynamically stable. Patient had previous quadruple CABG back in 2016, and we have seen him on consultation. He also had previous stent placement in 2012. His past medical history is mostly significant for coronary artery disease, COPD, hypertension, morbid obesity, and type 2 diabetes. Strong family history of coronary artery disease. Patient was reevaluated today on 02/21/20, patient is doing great, asymptomatic, blood pressure is under control, hemodynamically stable, denies any cough no wheezing no shortness of breath, he will likely be discharged home today by vascular surgery. Objective - Vital Signs Vital signs: Vital Signs Temp 97.7 F 02/21/20 08:00 Pulse 63 02/21/20 11:00 Resp 14 02/21/20 11:00 BP 142/69 02/21/20 11:00 Pulse Ox 93 L 02/21/20 11:00 Intake & Output 02/20/20 02/21/20 02/21/20 18:59 06:59 18:59 Intake Total 1783 996 526 Output Total 1260 1320 525 Balance 523 -324 1 Weight 134.5 kg 136.1 kg Intake: IV 1583 996 326 Lactated Ringers 1,000 ml 160 @ 80 mls/hr IV .[id number] SANG Rx#:[id number] Pressure Bag 12 36 6 Sodium Chloride 0.9% 1, 160 960 320 000 ml @ 80 mls/hr IV . [id number] [id number] Rx#:[id number] Oral 200 200 Output: Drainage 10 20 Left Neck 10 20 Urine 1150 1300 525 Estimated Blood Loss 100 Other: Voiding Method Indwelling Catheter Indwelling Catheter Indwelling Catheter # Voids 1 ABP, PAP, CO, CI - Last Documented Arterial Blood Pressure 133/50 - Exam Physical Exam: Revealed a 69-year-old white male obese in no distress. Head: Atraumatic, normocephalic. HEENT:[Neck is supple.] [No neck masses.] [No thyromegaly.] [No JVD.] Left cervical dressing is noted, surgical site was not examined. Chest: [Clear throughout, no crackles, no rhonchi, no wheezes.] Symmetrical chest expansion. Cardiac Exam: [Normal S1 and S2, no S3 gallop, no murmur.] Abdomen: Obese, [Soft, nontender, no megaly, no rebound, no guarding, normal bowel sounds.] Extremities: [No clubbing, trace edema, no cyanosis.] Neurological Exam: [No focal neurologic deficit.] Alert oriented 3. Psychiatric: Normal mood, affect and normal mental status examination. - Labs CBC & Chem 7: 02/20/20 13:45 02/20/20 13:45 Labs: Abnormal Lab Results - Last 24 Hours (Table) 02/20/20 02/20/20 02/20/20 Range/Units 13:27 13:45 13:45 MCHC 30.7 L (31.0-37.0) g/dL RDW 15.9 H (11.5-15.5) % Neutrophils # 8.2 H (1.3-7.7) k/uL Sodium 136 L (137-145) mmol/L Potassium 5.7 H (3.5-5.1) mmol/L Carbon Dioxide 21 L (22-30) mmol/L BUN 29 H (9-20) mg/dL Glucose 377 H (74-99) mg/dL POC Glucose (mg/dL) 380 H (75-99) mg/dL 02/20/20 02/20/20 02/20/20 Range/Units 14:42 16:50 20:27 MCHC (31.0-37.0) g/dL RDW (11.5-15.5) % Neutrophils # (1.3-7.7) k/uL Sodium (137-145) mmol/L Potassium (3.5-5.1) mmol/L Carbon Dioxide (22-30) mmol/L BUN (9-20) mg/dL Glucose (74-99) mg/dL POC Glucose (mg/dL) 387 H 362 H 350 H (75-99) mg/dL 02/21/20 02/21/20 Range/Units 06:23 12:32 MCHC (31.0-37.0) g/dL RDW (11.5-15.5) % Neutrophils # (1.3-7.7) k/uL Sodium (137-145) mmol/L Potassium (3.5-5.1) mmol/L Carbon Dioxide (22-30) mmol/L BUN (9-20) mg/dL Glucose (74-99) mg/dL POC Glucose (mg/dL) 209 H 259 H (75-99) mg/dL Assessment and Plan Assessment: Impression: Status post left carotid endarterectomy with patch angioplasty postoperative day #1 History of multivessel coronary artery disease and previous CABG with 4 vessel bypass in 2017. Type 2 diabetes. Obesity. Ex-smoker History of moderate severe COPD, asymptomatic. Benign essential hypertension. History of ALLERGY to aspirin products. Recommendation: Patient to resume home meds, Cleared from my perspective for discharge home today. Time with Patient: Less than 30
[2020-02-21 13:17] VITALS: BP 136/87; PULSE 72; RESP 18; TEMP 98.2
--- NOTE | 2020-02-21 23:19 | P.PN ---
Progress Note - Text Progress Note Date: 02/21/20 - Chief Complaint Left carotid endarterectomy History of presenting complaint: This is a very pleasant [address] Palomares. Chronic stable medical conditions include coronary artery disease, COPD, diabetes, hypertension, hyperlipidemia, osteoarthritis obesity. Patient has known carotid artery disease. Has prior cardiac stents. Patient is known to have greater than 80% left carotid artery stenosis as seen on CT angiogram and carotid Doppler. Patient underwent left carotid endarterectomy with a patch angioplasty earlier today. Postprocedure sitting up in bed. In the ICU. No dizziness no lightheadedness. No neck pain. No s tridor. Did tolerate clear liquids. Today-sitting up in a chair. Feeling well. Did tolerate her diet. No hoarseness. No neck swelling. No chest pain. No headache. Review of systems: Was done for constitutional, cardiovascular, GI, pulmonary. relevant finding as above Current medications reviewed in today's electronic records Physical examination: VITAL SIGNS: 98.2, 16, 20, 130-72, 96% room air GENERAL: Sitting up in a chair, comfortable EYES: Pupils equal. Conjunctiva normal. HEENT: External appearance of nose and ears normal, oral cavity grossly normal. NECK: JVD not raised; masses not palpable. Dressing over the left incision site HEART: First and second heart sounds are normal; no edema. LUNGS:[ Respiratory rate normal; decreased breath sounds. ABDOMEN: Soft, nontender, liver spleen not palpable, no masses palpable. PSYCH: Alert and oriented x3; mood and affect normal. INVESTIGATIONS, reviewed in the clinical context: [id number], 259 Previous testing White count 10.3 hemoglobin 13.4 potassium 5.7 creatinine 0.88 glucose 377 Assessment: -Left carotid endarterectomy with patch angioplasty -Bilateral carotid artery stenosis -Morbid obesity BMI 41.4 -Coronary artery disease with a prior history of stent -COPD in an ex-smoker -Diabetes mellitus type 2 chronically on insulin, uncontrolled with hyperglycemia -Hyperlipidemia, -Essential hypertension Primary osteoarthritis Plan: Care was discussed with the patient. Medications reviewed. Patient to follow- up his family doctor upon discharge. Thank you Dr. Chand
== END 2020-02-21 13:57 | disposition home or self-care (01) | DRG 38 ==
LOC: 2ORMAIN 08:32 → 2SICU 13:57
PROVIDERS: ADMIT Surgery; ATTEND Surgery
PROC: 03UL0KZ Supplement Left Internal Carotid Artery with Nonautologous Tissue Substitute, Open Approach (ICD-10-PCS; principal; 2020-02-20 10:10)
PROC: 03CL0ZZ Extirpation of Matter from Left Internal Carotid Artery, Open Approach (ICD-10-PCS; principal; 2020-02-20 10:10)
DX: I65.23 Occlusion and stenosis of bilateral carotid arteries (principal); Z68.41 Body mass index [BMI] 40.0-44.9, adult; E66.01 Morbid (severe) obesity due to excess calories; J44.9 Chronic obstructive pulmonary disease, unspecified; M19.91 Primary osteoarthritis, unspecified site; I25.10 Atherosclerotic heart disease of native coronary artery without angina pectoris; E11.65 Type 2 diabetes mellitus with hyperglycemia; I10 Essential (primary) hypertension; E78.5 Hyperlipidemia, unspecified; I25.2 Old myocardial infarction; Z79.4 Long term (current) use of insulin; Z79.82 Long term (current) use of aspirin; Z82.49 Family history of ischemic heart disease and other diseases of the circulatory system; Z86.73 Personal history of transient ischemic attack (TIA), and cerebral infarction without residual deficits; Z88.6 Allergy status to analgesic agent; Z90.49 Acquired absence of other specified parts of digestive tract; Z98.890 Other specified postprocedural states; Z95.5 Presence of coronary angioplasty implant and graft; Z95.1 Presence of aortocoronary bypass graft; Z87.891 Personal history of nicotine dependence; Z79.899 Other long term (current) drug therapy; Z80.51 Family history of malignant neoplasm of kidney; Z80.8 Family history of malignant neoplasm of other organs or systems; Z88.1 Allergy status to other antibiotic agents; Z88.0 Allergy status to penicillin; Z88.2 Allergy status to sulfonamides
CPT/HCPCS: 80048; 84132; 85025; 86850; 86900; 86901; 88304; 88305; 88311

== ENCOUNTER 2022-05-28 09:34 | Inpatient (IN) | payer MEDICARE ==
--- NOTE | 2022-05-28 10:18 | ED ---
Chest Pain HPI - General Chief Complaint: Chest Pain Stated Complaint: chest pain - taking blood thinners Time Seen by Provider: 05/28/22 09:58 Source: patient Mode of arrival: ambulatory Limitations: no limitations - History of Present Illness Initial Comments: 72-year-old male with past history of coronary artery disease status post bypass 5 years ago emergency room with chest pain. States that it started last night. Substernal and nonradiating. Pain has been constant without any revoking factors. He did take 3 aspirin this morning and states that his pain is resolved at this time. Patient has constant shortness of breath however denies any worsening breathing issues. No fevers, chills or cough. No ripping or tearing sensation to his back. No bowel pain. Denies any numbness, tingling or weakness in his legs. Follows with Dr. Bell. No other alleviating, precipitating or modifying factors - Related Data Home Medications Medication Instructions Recorded Confirmed Clopidogrel [Plavix] 75 mg PO HS 12/19/19 05/28/22 gemfibroziL [Lopid] 600 mg PO AC-BID 11/27/20 05/28/22 Cetirizine HCl [Zyrtec] 10 mg PO DAILY PRN 05/28/22 05/28/22 Insulin Degludec [Tresiba 80 units SQ DAILY 05/28/22 05/28/22 Flextouch U-200 Pen] Metoprolol Tartrate [Lopressor] 100 mg PO BID 05/28/22 05/28/22 Semaglutide [Ozempic] 0.5 mg SQ MO 05/28/22 05/28/22 lisinopriL [Zestril] 40 mg PO DAILY 05/28/22 05/28/22 Allergies Allergy/AdvReac Type Severity Reaction Status Date / Time Penicillins Allergy Unknown Verified 05/28/22 11:23 Childhood Sulfa (Sulfonamide Allergy Rash/Hives Verified 05/28/22 11:23 Antibiotics) tetracycline Allergy Rash/Hives Verified 05/28/22 11:23 Review of Systems ROS Statement: Those systems with pertinent positive or pertinent negative responses have been documented in the HPI. ROS Other: All systems not noted in ROS Statement are negative. EKG Findings - EKG Comments: EKG Findings:: EKG demonstrates sinus rhythm with a rate of 69. CA interval 136. QRS 101. QTC of 392. Significant baseline artifact. No acute ST segment elevations or depressions Past Medical History Past Medical History: Coronary Artery Disease (CAD), Chest Pain / Angina, COPD, Diabetes Mellitus, Hyperlipidemia, Hypertension, Myocardial Infarction (CT), Osteoarthritis (OA) Additional Past Medical History / Comment(s): past hx of COPD, vertigo Last Myocardial Infarction Date:: 2012 History of Any Multi-Drug Resistant Organisms: None Reported Past Surgical History: Appendectomy, Heart Catheterization, Heart Catheterization With Stent Additional Past Surgical History / Comment(s): srinivasa carotid Endarterectomy, cardiac stents x2, QUAD CABG 2017. HEMORRHOIDECTOMY Past Anesthesia/Blood Transfusion Reactions: No Reported Reaction Date of Last Stent Placement:: 2012 Past Psychological History: No Psychological Hx Reported Smoking Status: Former smoker Past Alcohol Use History: None Reported Past Drug Use History: None Reported - Past Family History Father Family Medical History: Coronary Artery Disease (CAD) Mother Family Medical History: Cancer, Renal Disease Brother(s) Family Medical History: Cancer Sister(s) Family Medical History: No Reported History Son(s) Family Medical History: Cancer (patient has biological son and a stepson his biological son had thyroid cancer.) General Exam Limitations: no limitations General appearance: alert, in no apparent distress Head exam: Present: atraumatic, normocephalic, normal inspection Eye exam: Present: normal appearance, PERRL, EOMI. Absent: scleral icterus, conjunctival injection, periorbital swelling ENT exam: Present: normal exam, mucous membranes moist Neck exam: Present: normal inspection. Absent: tenderness, meningismus, lymphadenopathy Respiratory exam: Present: normal lung sounds bilaterally. Absent: respiratory distress, wheezes, rales, rhonchi, stridor Cardiovascular Exam: Present: regular rate, normal rhythm, normal heart sounds. Absent: systolic murmur, diastolic murmur, rubs, gallop, clicks GI/Abdominal exam: Present: soft, normal bowel sounds. Absent: distended, tenderness, guarding, rebound, rigid Extremities exam: Present: normal inspection, full ROM, normal capillary refill. Absent: tenderness, pedal edema, joint swelling, calf tenderness Back exam: Present: normal inspection Neurological exam: Present: alert, oriented X3, CN II-XII intact Psychiatric exam: Present: normal affect, normal mood Skin exam: Present: warm, dry, intact, normal color. Absent: rash Course Vital Signs 05/28/22 05/28/22 05/28/22 09:47 11:14 13:00 Temperature 98.6 F Pulse Rate 69 68 68 Respiratory 18 18 18 Rate Blood Pressure 114/51 126/72 112/60 O2 Sat by Pulse 94 L 93 L 93 L Oximetry Chest Pain MDM - MDM Upon arrival patient is placed into room 5. A thorough history and physical exam was performed. IV access is established. He is pain-free at this time. He is placed on continues pulse ox and cardiac monitoring. 12-lead EKG is perf ormed which demonstrates no ST segment elevation. Laboratory studies are completed. Troponin is elevated at 0.052. Patient has 30 taken 3 full dose aspirins at home. He is started on a heparin drip as he has no contraindications. Chest x-ray demonstrates chronic changes with mild cardiomegaly. Results are discussed with the patient. He will be admitted for NSTEMI. Spoke with Dr. Hoang who was agreeable to admission. Critical Care Time Critical Care Time: Yes Critical Care Time: 35 minutes Disposition Clinical Impression: Chest pain, Coronary artery disease, S/P CABG (coronary artery bypass graft), NSTEMI (non-ST elevated myocardial infarction) Disposition: ADMITTED IP TO THIS HOSP Condition: Stable Is patient prescribed a controlled substance at d/c from ED?: No Time of Disposition: 12:17 Decision to Admit Reason: Admit from EC Decision Date: 05/28/22 Decision Time: 12:17
[2022-05-28 10:21] LABS: Basophils # (A) 0.1 k/uL (0-0.2); Basophils % (A) 1 %; Eosinophils # (A) 0.2 k/uL (0-0.7); Eosinophils % (A) 3 %; HCT 42.1 % (39.0-53.0); HGB 13.5 gm/dL (13.0-17.5); Hypochromasia Slight; Lymphocytes # (A) 1.6 k/uL (1.0-4.8); Lymphocytes % (A) 25 %; MCH 29.3 pg (25.0-35.0); MCHC 32.1 g/dL (31.0-37.0); MCV 91.3 fL (80.0-100.0); Mean Platelet Volume 7.8; Monocytes # (A) 0.3 k/uL (0-1.0); Monocytes % (A) 5 %; Neutrophils # (A) 4.1 k/uL (1.3-7.7); Neutrophils % (A) 64 %; Platelet Count 282 k/uL (150-450); RBC 4.61 m/uL (4.30-5.90); RDW 14.8 % (11.5-15.5); WBC 6.5 k/uL (3.8-10.6)
[2022-05-28 10:31] LABS: Partial Thromboplastin Time 27.1 sec (22.0-30.0); Prothrombin Time 10.8 sec (9.0-12.0)
[2022-05-28 10:41] LABS: Albumin 4.2 g/dL (3.5-5.0); Calcium 10.7 mg/dL (8.4-10.2); Magnesium 2.1 mg/dL (1.6-2.3); Potassium 5.6 mmol/L (3.5-5.1); Total Bilirubin 0.4 mg/dL (0.2-1.3); Total Protein 7.4 g/dL (6.3-8.2)
--- NOTE | 2022-05-28 10:45 | XR ---
EXAMINATION TYPE: XR chest 2V DATE OF EXAM: 05/28/2022 COMPARISON: Chest x-ray December 05, 2019 HISTORY: Chest pain. TECHNIQUE: Frontal and lateral views of the chest are obtained. FINDINGS: Overlying sternal wires are redemonstrated. Persistent low lung volumes and chronic parenc hymal changes greatest in the left lung base. There is no suspicious new focal air space opacity, ple ural effusion, or pneumothorax seen. The cardiac silhouette size is stable and mildly enlarged. Ante rior bridging osteophytes in the thoracic spine are redemonstrated. IMPRESSION: Chronic changes and mild cardiomegaly without new acute pulmonary process.
[2022-05-28] MEDS ORDERED: HEPARIN SODIUM 1,000 UN/ML (10ML VL) IV ONE (12:13)
[2022-05-28] MEDS ORDERED: NALOXONE 0.4 MG/ML 1 ML VIAL IV PRN (12:18)
[2022-05-28] MEDS: HEPARIN SOD,PORK IN 0.45% NACL 25,000 UNIT in 0.45% NACL 1 250ML.BAG IV SCH (12:59)
[2022-05-28 15:39] LABS: Glucose,Whole Blood 90 mg/dL (70-110)
[2022-05-28] MEDS ORDERED: LORATADINE 10 MG TAB PO PRN (17:19)
[2022-05-28] MEDS ORDERED: SODIUM ZIRCONIUM CYCLOSILICATE 10 GM PACKET PO ONE (17:20)
[2022-05-28] MEDS ORDERED: LACTULOSE 20 GM/30 ML CUP PO PRN (17:21)
[2022-05-28] MEDS ORDERED: ONDANSETRON 4 MG/2 ML VIAL IVP PRN (17:21)
[2022-05-28] MEDS ORDERED: CALCIUM CARBONATE 500 MG CHEWABLE PO PRN (17:21)
[2022-05-28] MEDS ORDERED: LORazepam 0.5 MG TAB PO PRN (17:21)
[2022-05-28] MEDS ORDERED: TEMAZEPAM 15 MG CAP PO PRN (17:21)
[2022-05-28] MEDS ORDERED: ACETAMINOPHEN TAB 325 MG TAB PO PRN (17:21)
[2022-05-28] MEDS ORDERED: DEXTROSE 50% SYRINGE 50 ML IVP PRN ×2 (17:22)
--- NOTE | 2022-05-28 17:27 | P.HPIM ---
History of Present Illness H&P Date: 05/28/22 Chief Complaint: Chest pain History of presenting complaint: This is a very pleasant [address] Palomares. Chronic stable medical conditions include coronary artery disease, COPD, diabetes, hypertension, hyperlipidemia, osteoarthritis obesity. has known carotid artery disease. Has prior cardiac stents, follows with Dr. Elza Bolden. Patient been having indigestion after about 2 months. Symptoms could be present at rest or with activity. Early this morning woke up with their pressure-like sensation in the chest. Took some [place] with some help. Also took some aspirin. [place] a bit better. Patient's exercise tolerance is somewhat limited because of sciatica bothering him on the right side for last few weeks. Decided to come in. Troponin positive at 0.052. Pain did not radiate to the shoulder or neck. at the bedside. No obvious exacerbating or relieving factor. No shortness of breath Review of systems: GEN.: A bit tired EYES: None HEENT: As above NECK: None RESPIRATORY: None CARDIOVASCULAR: As above GASTROINTESTINAL: None GENITOURINARY: None MUSCULOSKELETAL: Back pain LYMPHATICS: None HEMATOLOGICAL: None PSYCHIATRY: None NEUROLOGICAL: As above Past medical history to include: Coronary artery disease with stent, COPD, diabetes, hyperlipidemia, hypertension, osteoarthritis, sciatica, carotid arteries be monitored. Social history: Patient smoked a pack a day for 30 years stopped 97. No alcohol. . 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 Conjunctiva normal. HEENT: External appearance of nose and ears normal, oral cavity grossly normal. NECK: JVD not raised; masses not palpable. HEART: First and second heart sounds are normal; no edema. LUNGS:[ Respiratory rate normal; decreased breath sounds. ABDOMEN: Soft, nontender, liver spleen not palpable, no masses palpable. PSYCH: Alert and oriented x3; mood and affect normal. NEUROLOGICAL: Cranial nerves grossly intact; no facial asymmetry, power and sensation grossly intact. Possible dysdiadochokinesis on the right hand. No past pointing. Questionable nystagmus LYMPHATICS: No lymph nodes palpable in the axilla and neck INVESTIGATIONS, reviewed in the clinical context: WBC 6.5 hemoglobin 13.5 platelets 282 potassium 5.6 BUN 45 creatinine 1.19 Troponin I 0.052, 0.05 to EKG tracing personally reviewed by me-normal sinus rhythm. Some ST segment depression in lateral leads Chest x-ray film personally reviewed by me-cardiomegaly Assessment and plan: -Possible unstable angina, the patient with known CAD Consult cardiology. Telemetry. IV heparin. Aspirin, Lopressor -IV heparin monitoring Follow PTT -GERD Pepcid -Significant carotid artery artery stenosis close to 90% on the right side Follows with vascular outpatient -Morbid obesity BMI 41.6 Weight loss measures -Coronary artery disease with a prior history of stent Aspirin -COPD in an ex-smoker Albuterol when necessary -Diabetes mellitus type 2 chronically on insulin, Levemir 70 units subcu a.m. Slightly scale with Accu-Cheks -Hyperlipidemia, Lopid -Essential hypertension Lopressor. -Hyperkalemia Hold Zestril. Lokelma -Primary osteoarthritis- Pain medications needed -Full code IV heparin. Aspirin. Lopressor. Telemetry. Consult cardiology. Resume home medications. Hold Zestril. Lokelma. Repeat labs in the morning. Care was discussed with the patient and at the bedside. Past Medical History Past Medical History: Coronary Artery Disease (CAD), Chest Pain / Angina, COPD, Diabetes Mellitus, Hyperlipidemia, Hypertension, Myocardial Infarction (MA), Osteoarthritis (OA) Additional Past Medical History / Comment(s): Vertigo Last Myocardial Infarction Date:: 2012 History of Any Multi-Drug Resistant Organisms: None Reported Past Surgical History: Appendectomy, Heart Catheterization, Heart Catheterization With Stent, Tonsillectomy Additional Past Surgical History / Comment(s): Bilateral carotid Endarterectomy, cardiac stents x2, QUAD CABG 2017. HEMORRHOIDECTOMY Past Anesthesia/Blood Transfusion Reactions: No Reported Reaction Date of Last Stent Placement:: 2012 Past Psychological History: No Psychological Hx Reported Smoking Status: Former smoker Past Alcohol Use History: None Reported Past Drug Use History: None Reported - Past Family History Father Family Medical History: Coronary Artery Disease (CAD) Mother Family Medical History: Cancer, Diabetes Mellitus, Renal Disease Brother(s) Family Medical History: Cancer Sister(s) Family Medical History: No Reported History Son(s) Family Medical History: Cancer (patient has biological son and a stepson his biological son had thyroid cancer.) Medications and Allergies Home Medications Medication Instructions Recorded Confirmed Type Clopidogrel [Plavix] 75 mg PO HS 12/19/19 05/28/22 History gemfibroziL [Lopid] 600 mg PO AC-BID 11/27/20 05/28/22 History Cetirizine HCl [Zyrtec] 10 mg PO DAILY PRN 05/28/22 05/28/22 History Insulin Degludec [Tresiba 80 units SQ DAILY 05/28/22 05/28/22 History Flextouch U-200 Pen] Metoprolol Tartrate [Lopressor] 100 mg PO BID 05/28/22 05/28/22 History Semaglutide [Ozempic] 0.5 mg SQ MO 05/28/22 05/28/22 History lisinopriL [Zestril] 40 mg PO DAILY 05/28/22 05/28/22 History Allergies Allergy/AdvReac Type Severity Reaction Status Date / Time Penicillins Allergy Unknown Verified 05/28/22 11:23 Childhood Sulfa (Sulfonamide Allergy Rash/Hives Verified 05/28/22 11:23 Antibiotics) tetracycline Allergy Rash/Hives Verified 05/28/22 11:23 Physical Exam Vitals: Vital Signs Temp Pulse Pulse Resp BP BP Pulse Ox 05/28/22 15:15 66 18 135/75 95 05/28/22 14:00 69 05/28/22 13:47 98.2 F 69 20 168/66 95 05/28/22 13:00 68 18 112/60 93 L 05/28/22 11:14 68 18 126/72 93 L 05/28/22 09:47 98.6 F 69 18 114/51 94 L Intake and Output 05/28/22 05/28/22 05/28/22 06:59 14:59 22:59 Other: Voiding Method Toilet # Voids 1 Weight 131.542 kg Results CBC & Chem 7: 05/28/22 10:11 05/28/22 10:11 Labs: Abnormal Lab Results - Last 24 Hours (Table) 05/28/22 05/28/22 05/28/22 Range/Units 10:11 10:11 14:39 Sodium 135 L (137-145) mmol/L Potassium 5.6 H (3.5-5.1) mmol/L BUN 45 H (9-20) mg/dL Glucose 218 H (74-99) mg/dL Calcium 10.7 H (8.4-10.2) mg/dL Troponin I 0.052 H* 0.052 H* (0.000-0.034) ng/mL Thrombosis Risk Factor Assmnt - Choose All That Apply Any of the Below Risk Factors Present?: Yes Each Factor Represents 1 point: Abnormal pulmonary function (COPD), Acute MA, Obesity (BMI >25) Other Risk Factors: Yes Each Risk Factor Represents 2 Points: Age 61-74 years Other congenital or acquired thrombophilia - If yes, enter type in comment: No Thrombosis Risk Factor Assessment Total Risk Factor Score: 5 Thrombosis Risk Factor Assessment Level: High Risk
[2022-05-28] MEDS: INSULIN ASPART (NovoLOG) 100 UNIT/ML VIAL SQ SCH (17:42)
[2022-05-28] MEDS: ASPIRIN 81 MG PO SCH (17:42)
[2022-05-28] MEDS: HEPARIN SODIUM 1,000 UN/ML (10ML VL) IV PRN (19:18)
[2022-05-28 20:21] LABS: Glucose,Whole Blood 196 mg/dL (70-110)
[2022-05-28] MEDS: FAMOTIDINE 20 MG TAB PO SCH (20:36)
[2022-05-28] MEDS: METOPROLOL TARTRATE 50 MG TAB PO SCH (20:36)
[2022-05-28] MEDS: CLOPIDOGREL 75 MG TAB PO SCH (20:36)
[2022-05-29] MEDS: HEPARIN SODIUM 1,000 UN/ML (10ML VL) IV PRN (01:04)
[2022-05-29] MEDS: HEPARIN SOD,PORK IN 0.45% NACL 25,000 UNIT in 0.45% NACL 1 250ML.BAG IV SCH ×2 (04:39→15:31)
[2022-05-29 05:56] LABS: Glucose,Whole Blood 150 mg/dL (70-110)
[2022-05-29] MEDS: INSULIN ASPART (NovoLOG) 100 UNIT/ML VIAL SQ SCH ×4 (06:00→21:28)
[2022-05-29] MEDS: INSULIN DETEMIR (LEVEMIR) 100 UNIT/ML SYR SQ SCH (06:00)
[2022-05-29] MEDS: ASPIRIN 81 MG PO SCH (08:48)
[2022-05-29] MEDS: FENOFIBRATE 160 MG TAB PO SCH (08:49)
[2022-05-29] MEDS: METOPROLOL TARTRATE 50 MG TAB PO SCH ×2 (08:49→21:22)
[2022-05-29] MEDS: FAMOTIDINE 20 MG TAB PO SCH ×2 (08:49→21:22)
[2022-05-29 08:52] LABS: Basophils % (A) 0 %; Eosinophils # (A) 0.2 k/uL (0-0.7); Eosinophils % (A) 2 %; HCT 42.1 % (39.0-53.0); HGB 12.9 gm/dL (13.0-17.5); Hypochromasia Moderate; Lymphocytes # (A) 1.8 k/uL (1.0-4.8); Lymphocytes % (A) 26 %; MCH 28.4 pg (25.0-35.0); MCHC 30.7 g/dL (31.0-37.0); MCV 92.5 fL (80.0-100.0); Mean Platelet Volume 7.9; Monocytes # (A) 0.4 k/uL (0-1.0); Monocytes % (A) 6 %; Neutrophils # (A) 4.5 k/uL (1.3-7.7); Neutrophils % (A) 64 %; Platelet Count 256 k/uL (150-450); RBC 4.55 m/uL (4.30-5.90); RDW 14.7 % (11.5-15.5)
[2022-05-29] MEDS ORDERED: REGADENOSON 0.4 MG/5 ML SYRINGE IV PRN (09:26)
[2022-05-29] MEDS ORDERED: AMINOPHYLLINE 500 MG/20 ML VIAL IV PRN (09:26)
[2022-05-29] MEDS ORDERED: CAFFEINE CITRATE 60 MG/3 ML VIAL IV PRN (09:26)
[2022-05-29 09:43] LABS: Calcium 10.2 mg/dL (8.4-10.2); Potassium 5.7 mmol/L (3.5-5.1)
--- NOTE | 2022-05-29 10:42 | P.CRDCN ---
History of Present Illness History of present illness: HISTORY OF PRESENT ILLNESS: This is a 72 year old female with a past medical history significant for coronary artery disease with previous 4V CABG in 2017 and PCI of RCA in 2013, hypertension, hyperlipidemia, carotid artery stenosis, and diabetes. Patient follows in the office with Dr. Sarmiento. We have been asked to see the patient in consultation for chest pain. Patient examined at the bedside. Patient reports having chest pain for the past two weeks. He states he thought the pain was indigestion and he was taking antacids without any relief. He states yesterday he woke up from a sleep with increased chest pain. He states he took a couple aspirin which helped his pain. He denied any radiation of the pain. He did report feeling short of breath at the time. He denied any nausea or vomiting. He denies any chest pain or pressure this morning. * EKG reveals sinus mechanism with no signs of acute ischemia. Baseline artifact. * Chest xray chronic changes and mild cardiomegaly without no acute pulmonary process * Laboratory data: WBC 7.0. Hemoglobin 12.9. Platelet count 256. Sodium 137. Potassium 5.7. BUN 42. Creatinine 1.33. Troponin 0.052. 0.052. 0.045. * Current home cardiac medications include Plavix 75 mg at night, gemfibrozil 600 mg twice a day, metoprolol tartrate 100 mg twice a day, lisinopril 40 mg daily * Most recent echocardiogram obtained in March 2021 revealed ejection fraction 60% REVIEW OF SYSTEMS: At the time of my exam: CONSTITUTIONAL: Denies fever or chills. HEENT: Denies blurred vision, vision changes, or eye pain. Denies hemoptysis CARDIOVASCULAR: Denies chest pain. Denies orthopnea. Denies PND. Denies palpitations RESPIRATORY: Denies shortness of breath. GASTROINTESTINAL: Denies abdominal pain. Denies nausea or vomiting. HEMATOLOGIC: Denies bleeding disorders. GENITOURINARY: Denies any blood in urine. SKIN: Denies pruitis. Denies rash. PHYSICAL EXAM: VITAL SIGNS: Reviewed. GENERAL: Well-developed in no acute distress. HEENT: Head is normocephalic. Pupils are equal, round. Sclerae anicteric. Mucous membranes of the mouth are moist. Neck supple. No JVD or thyromegaly LUNGS: Respirations even and unlabored. Lungs essentially clear to auscultation bilaterally. HEART: Regular rate and rhythm. S1 and S2 heard. ABDOMEN: Soft. Nondistended. Nontender. EXTREMITIES: Normal range of motion. No clubbing or cyanosis. Peripheral pulses intact. No lower extremity edema NEUROLOGIC: Awake and alert. Oriented x 3. ASSESSMENT: Chest pain Abnormal troponins, flat, ACS ruled out Coronary artery disease with previous PCI and CABG Hypertension Hyperlipidemia Hyperkalemia Carotid artery stenosis Diabetes PLAN: An acute coronary event has been ruled out Resume home cardiac medications Discontinue IV heparin Hold SHAR until hyperkalemia resolves Patient to undergo Lexiscan stress test today Further recommendations pending patient's course Nurse practitioner note has been reviewed by physician. Signing provider agrees with the documented findings, assessment, and plan of care. Past Medical History Past Medical History: Coronary Artery Disease (CAD), Chest Pain / Angina, COPD, Diabetes Mellitus, Hyperlipidemia, Hypertension, Myocardial Infarction (HI), Osteoarthritis (OA) Additional Past Medical History / Comment(s): Vertigo Last Myocardial Infarction Date:: 2012 History of Any Multi-Drug Resistant Organisms: None Reported Past Surgical History: Appendectomy, Heart Catheterization, Heart Catheterization With Stent, Tonsillectomy Additional Past Surgical History / Comment(s): Bilateral carotid Endarterectomy, cardiac stents x2, QUAD CABG 2017. HEMORRHOIDECTOMY Past Anesthesia/Blood Transfusion Reactions: No Reported Reaction Date of Last Stent Placement:: 2012 Past Psychological History: No Psychological Hx Reported Smoking Status: Former smoker Past Alcohol Use History: None Reported Past Drug Use History: None Reported - Past Family History Father Family Medical History: Coronary Artery Disease (CAD) Mother Family Medical History: Cancer, Diabetes Mellitus, Renal Disease Brother(s) Family Medical History: Cancer Sister(s) Family Medical History: No Reported History Son(s) Family Medical History: Cancer (patient has biological son and a stepson his biological son had thyroid cancer.) Medications and Allergies Home Medications Medication Instructions Recorded Confirmed Type Clopidogrel [Plavix] 75 mg PO HS 12/19/19 05/28/22 History gemfibroziL [Lopid] 600 mg PO AC-BID 11/27/20 05/28/22 History Cetirizine HCl [Zyrtec] 10 mg PO DAILY PRN 05/28/22 05/28/22 History Insulin Degludec [Tresiba 80 units SQ DAILY 05/28/22 05/28/22 History Flextouch U-200 Pen] Metoprolol Tartrate [Lopressor] 100 mg PO BID 05/28/22 05/28/22 History Semaglutide [Ozempic] 0.5 mg SQ MO 05/28/22 05/28/22 History lisinopriL [Zestril] 40 mg PO DAILY 05/28/22 05/28/22 History Allergies Allergy/AdvReac Type Severity Reaction Status Date / Time Penicillins Allergy Unknown Verified 05/28/22 11:23 Childhood Sulfa (Sulfonamide Allergy Rash/Hives Verified 05/28/22 11:23 Antibiotics) tetracycline Allergy Rash/Hives Verified 05/28/22 11:23 Physical Exam Vitals: Vital Signs Temp Pulse Pulse Resp BP BP Pulse Ox 05/29/22 04:00 66 16 104/56 90 L 05/29/22 00:00 70 16 96/44 96 05/28/22 20:00 98.3 F 82 16 173/69 92 L 05/28/22 15:15 66 18 135/75 95 05/28/22 14:00 69 05/28/22 13:47 98.2 F 69 20 168/66 95 05/28/22 13:00 68 18 112/60 93 L 05/28/22 11:14 68 18 126/72 93 L 05/28/22 09:47 98.6 F 69 18 114/51 94 L Intake and Output 05/28/22 05/29/22 05/29/22 22:59 06:59 14:59 Intake Total 63.148 624.970 Balance 63.148 624.970 Intake: Intake, IV Titration 63.148 139.970 Amount Heparin Sod,Pork in 0.45% 63.148 139.970 NaCl 25,000 unit In 0.45 % NaCl 1 250ml.bag @ 7.6 UNITS/KG/HR 9.997 mls/hr IV .Q24H [facility] Rx#: [id number] Oral 485 Other: Voiding Method Toilet Toilet # Voids 2 2 Results 05/29/22 07:27 05/29/22 07:27 Cardiac Enzymes 05/28/22 05/28/22 05/28/22 Range/Units 10:11 10:11 14:39 AST 21 (17-59) U/L Troponin I 0.052 H* 0.052 H* (0.000-0.034) ng/mL 05/28/22 Range/Units 18:19 AST (17-59) U/L Troponin I 0.045 H* (0.000-0.034) ng/mL Coagulation 05/28/22 05/28/22 05/28/22 Range/Units 10:11 18:19 23:42 PT 10.8 (9.0-12.0) sec APTT 27.1 28.5 34.2 H (22.0-30.0) sec CBC 05/28/22 Range/Units 10:11 WBC 6.5 (3.8-10.6) k/uL RBC 4.61 (4.30-5.90) m/uL Hgb 13.5 (13.0-17.5) gm/dL Hct 42.1 (39.0-53.0) % Plt Count 282 (150-450) k/uL Comprehensive Metabolic Panel 05/28/22 Range/Units 10:11 Sodium 135 L (137-145) mmol/L Potassium 5.6 H (3.5-5.1) mmol/L Chloride 102 (98-107) mmol/L Carbon Dioxide 22 (22-30) mmol/L BUN 45 H (9-20) mg/dL Creatinine 1.19 (0.66-1.25) mg/dL Glucose 218 H (74-99) mg/dL Calcium 10.7 H (8.4-10.2) mg/dL AST 21 (17-59) U/L ALT 17 (4-49) U/L Alkaline Phosphatase 63 (38-126) U/L Total Protein 7.4 (6.3-8.2) g/dL Albumin 4.2 (3.5-5.0) g/dL Current Medications Generic Name Dose Route Start Last Admin Trade Name Freq PRN Reason Stop Dose Admin Acetaminophen 650 mg 05/28/22 17:21 Acetaminophen Tab 325 Mg Tab PO Q6HR PRN Mild Pain or Fever > 100.5 Aspirin 81 mg 05/28/22 17:30 05/28/22 17:42 Aspirin 81 Mg PO Not Given DAILY [facility] Calcium Carbonate/Glycine 1,000 mg 05/28/22 17:21 Calcium Carbonate 500 Mg Chewable PO Q4HR PRN Dyspepsia Clopidogrel Bisulfate 75 mg 05/28/22 21:00 05/28/22 20:36 Clopidogrel 75 Mg Tab PO 75 mg HS [facility] Administration Dextrose/Water 25 ml 05/28/22 17:22 Dextrose 50% Syringe 50 Ml IVP PER PROTOCOL PRN Hypoglycemia Protocol Dextrose/Water 50 ml 05/28/22 17:22 Dextrose 50% Syringe 50 Ml IVP PER PROTOCOL PRN Hypoglycemia Protocol Famotidine 20 mg 05/28/22 21:00 05/28/22 20:36 Famotidine 20 Mg Tab PO 20 mg BID [facility] Administration Fenofibrate 160 mg 05/29/22 09:00 Fenofibrate 160 Mg Tab PO DAILY [facility] Heparin Sodium (Porcine) 0 unit 05/28/22 12:13 05/29/22 01:04 Heparin Sodium 1,000 Un/Ml (10ml Vl) IV 3,200 unit PER PROTOCOL PRN Administration Low PTT Protocol Heparin Sodium/Sodium Chloride 250 mls @ 9.997 mls/hr 05/28/22 12:15 05/29/22 04:39 25,000 unit/ Sodium Chloride IV 12.6 units/kg/hr .Q24H [facility] 16.574 mls/hr Administration Protocol 7.6 UNITS/KG/HR Insulin Aspart 0 unit 05/28/22 17:30 05/29/22 06:00 Insulin Aspart (Novolog) 100 Unit/Ml Vial SQ Not Given AC-TID [facility] Protocol Insulin Detemir 70 unit 05/29/22 07:00 05/29/22 06:00 Insulin Detemir (Levemir) 100 Unit/Ml Syr SQ Not Given DAILY@0700 [facility] Lactulose 20 gm 05/28/22 17:21 Lactulose 20 Gm/30 Ml Cup PO DAILY PRN Constipation Loratadine 10 mg 05/28/22 17:19 Loratadine 10 Mg Tab PO DAILY PRN Allergy Symptoms Lorazepam 0.5 mg 05/28/22 17:21 Lorazepam 0.5 Mg Tab PO Q6HR PRN Anxiety Metoprolol Tartrate 100 mg 05/28/22 21:00 05/28/22 20:36 Metoprolol Tartrate 50 Mg Tab PO 100 mg BID [facility] Administration Naloxone HCl 0.2 mg 05/28/22 12:18 Naloxone 0.4 Mg/Ml 1 Ml Vial IV Q2M PRN Opioid Reversal Non-Formulary Medication 0.5 mg 06/01/22 09:00 Semaglutide [Ozempic] SQ MO [facility] Ondansetron HCl 4 mg 05/28/22 17:21 Ondansetron 4 Mg/2 Ml Vial IVP Q8HR PRN Nausea And Vomiting Temazepam 15 mg 05/28/22 17:21 Temazepam 15 Mg Cap PO HS PRN Insomnia Intake and Output 05/28/22 05/29/22 05/29/22 22:59 06:59 14:59 Intake Total 63.148 624.970 Balance 63.148 624.970 Intake: Intake, IV Titration 63.148 139.970 Amount Heparin Sod,Pork in 0.45% 63.148 139.970 NaCl 25,000 unit In 0.45 % NaCl 1 250ml.bag @ 7.6 UNITS/KG/HR 9.997 mls/hr IV .Q24H [facility] Rx#: [id number] Oral 485 Other: Voiding Method Toilet Toilet # Voids 2 2 05/28/22 10:11 05/28/22 10:11
--- NOTE | 2022-05-29 10:47 | CA ---
Transthoracic Echo Report Name: Blas Heredia Age: 72 Gender: M : 1950 Exam Date: 05/28/2022 13:29 Exam Location: [facility] Ht (in): 60 Wt (lb): 290 Ordering Physician: Symone Limon DO Attending/Referring Phys: Radha Christiansen MD Wireline Field Operator Amirah Miller RDCS Procedure CPT: Indications: chest pain, NSTEMI Cardiac Hx: Technical Quality: Fair Contrast 1: Total Dose (mL): Contrast 2: Total Dose (mL): MEASUREMENTS (Male / Female) Normal Values 2D ECHO LA Volume 116.6 cm??? 18 - 58 / 22 - 52 cm??? M-MODE Aortic Root Diameter MM 3.6 cm AV Cusp Separation MM 2.3 cm DOPPLER MV Area PHT 2.1 cm??? Mitral E Point Velocity 84.6 cm/s Mitral A Point Velocity 126.3 cm/s Mitral E to A Ratio 0.7 MV Deceleration Time 363.6 ms MV E' Velocity 5.8 cm/s Mitral E to MV E' Ratio 14.7 FINDINGS Left Ventricle Left ventricular ejection fraction is estimated at 50-55 %. Mildly increased left ventricular wall thickness. Right Ventricle Right ventricular dilatation. Right Atrium Normal right atrial size. Left Atrium Left atrial dilatation. Mitral Valve Mitral annular calcification. Mild mitral regurgitation. Aortic Valve Trileaflet aortic valve. Tricuspid Valve Structurally normal tricuspid valve. Pulmonic Valve Pulmonic valve not well visualized. Pericardium Normal pericardium. Aorta Aortic root and proximal ascending aorta not well visualized. CONCLUSIONS Normal left ventricular dimension and systolic function Previewed by: Dr. Ramin Yung MD (Electronically Signed) Final Date: 29 May 2022 10:46
--- NOTE | 2022-05-29 12:46 | CA ---
Lexiscan Nuclear Stress Test Report Name: Blas Heredia Exam Date: 05/29/2022 11:32 Exam Location: [facility] Ht (in): 70 Wt (lb): 279 BSA: 2.40 Ordering Phys: Deana Gastelum Referring Phys: Radha Christiansen MD Technologist: Hipolito Giang Age: 72 Gender: M : 1950 Procedure CPT: Indications: Reflex order-Stress test ICD-10 Codes: Patient History: Chest Pain Medications: Meds past 24 hrs: Pretest Chest Pain: STRESS TEST Lexiscan Protocol Exercise Duration (min:sec): 01:[address] Depressions (mm): Angina Score: Love Score: Resting HR (bpm): 66 Peak HR (bpm): 96 Resting BP (mmHg): 133 / 56 Peak BP (mmHg): 151 / 72 MPHR: 148 Target HR: 126 % MPHR: 65 METS: 1.0 Total Dose: Peak Dose: Atropine: Double Product: 44149 BP Response: Stress Termination: Completion of Infusion Stress Symptoms: FLUSHED Stress Summary: ECG ANALYSIS Resting ECG: Stress ECG: CONCLUSIONS Nondiagnostic electrocardiogram stress testing in response to Lexiscan Please follow-up on the Cardiolite portion and a separate report Dr. Ramin Yung MD (Electronically Signed) Final Date: 29 May 2022 12:45
--- NOTE | 2022-05-29 13:07 | NM ---
EXAMINATION TYPE: NM stress lexiscan cardiolite DATE OF EXAM: 05/29/2022 COMPARISON: NONE HISTORY: Chest pain TECHNIQUE: After the intravenous administration of 9.91 mCi Tc 99m Sestamibi - Cardiolite resting SP ECT images acquired 50 minutes post injection. At peak stress 25.5 mCi Tc 99m Sestamibi - Stress images obtained 31 minutes post injection The patient was stressed with 0.4mg Lexiscan. FINDINGS: There is diminished radiotracer along the inferior wall on both resting and stress images compatible with prior infarct. There is diminished radiotracer accumulation along the inferior lateral wall on t he stress images which is a normal appearance on the resting images compatible with catie-infarct isch emic change . Wall motion is diminished. This appears to be global hypokinesia. Minimal disc degenerative cardiac a pex may be present. Ejection fraction is calculated to be 35 %. IMPRESSION: 1. Large inferior lateral wall stress-induced ischemic change. 2. Inferior wall may be prior infarct or stress-induced ischemic change 3. Global hypokinesia with mild dyskinesia at the cardiac apex. 4. Ejection fraction is low at 35
[2022-05-29] MEDS ORDERED: ALPRAZolam 0.5 MG TAB PO PRN (13:19)
[2022-05-29] MEDS ORDERED: NITROGLYCERIN SL TABS 0.4 MG TAB SUBLINGUAL PRN (13:19)
[2022-05-29] MEDS ORDERED: ALPRAZolam 0.25 MG TAB PO PRN (13:19)
[2022-05-29] MEDS ORDERED: HEPARIN SODIUM 1,000 UN/ML (10ML VL) IV ONE (13:30)
[2022-05-29 13:53] LABS: Basophils % (A) 1 %; Eosinophils # (A) 0.1 k/uL (0-0.7); Eosinophils % (A) 2 %; HCT 42.8 % (39.0-53.0); HGB 13.8 gm/dL (13.0-17.5); Hypochromasia Slight; Lymphocytes # (A) 1.5 k/uL (1.0-4.8); Lymphocytes % (A) 19 %; MCH 29.4 pg (25.0-35.0); MCHC 32.2 g/dL (31.0-37.0); MCV 91.4 fL (80.0-100.0); Mean Platelet Volume 8.2; Monocytes # (A) 0.4 k/uL (0-1.0); Monocytes % (A) 5 %; Neutrophils # (A) 5.8 k/uL (1.3-7.7); Neutrophils % (A) 72 %; Platelet Count 249 k/uL (150-450); RBC 4.68 m/uL (4.30-5.90); RDW 14.9 % (11.5-15.5); WBC 8.1 k/uL (3.8-10.6)
[2022-05-29 14:45] LABS: Partial Thromboplastin Time 26.3 sec (22.0-30.0); Prothrombin Time 10.9 sec (9.0-12.0)
[2022-05-29] MEDS ORDERED: HEPARIN SODIUM,PORCINE/PF 5,000 UNIT/0.5 ML SYRINGE SQ SCH (16:00)
[2022-05-29 16:27] LABS: Glucose,Whole Blood 246 mg/dL (70-110)
--- NOTE | 2022-05-29 16:37 | P.PN ---
Progress Note - Text Progress Note Date: 05/29/22 Chief Complaint: Chest pain History of presenting complaint: This is a very pleasant [address] Palomares. Chronic stable medical conditions include coronary artery disease, COPD, diabetes, hypertension, hyperlipidemia, osteoarthritis obesity. has known carotid artery disease. Has prior cardiac stents, follows with Dr. Elza Bolden. Patient been having indigestion after about 2 months. Symptoms could be present at rest or with activity. Early this morning woke up with their pressure-like sensation in the chest. Took some [place] with some help. Also took some aspirin. [place] a bit better. Patient's exercise tolerance is somewhat limited because of sciatica bothering him on the right side for last few weeks. Decided to come in. Troponin positive at 0.052. Pain did not radiate to the shoulder or neck. at the bedside. No obvious exacerbating or relieving factor. No shortness of breath May 29: Up in a trochanter. No chest pain today. He underwent nuclear stress test. Large area of reversibility. On IV heparin. Active Medications Acetaminophen (Acetaminophen Tab 325 Mg Tab) 650 mg PO Q6HR PRN PRN Reason: Mild Pain or Fever > 100.5 Alprazolam (Alprazolam 0.25 Mg Tab) 0.25 mg PO Q6HR PRN PRN Reason: Mild Anxiety Alprazolam (Alprazolam 0.5 Mg Tab) 0.5 mg PO Q6HR PRN PRN Reason: Moderate Anxiety Aspirin (Aspirin 81 Mg) 81 mg PO DAILY [facility] Last Admin: 05/29/22 08:48 Dose: 81 mg Aspirin (Aspirin 325 Mg Tab) 325 mg PO ONCE ONE Stop: 06/01/22 05:01 Atorvastatin Calcium (Atorvastatin 40 Mg Tab) 40 mg PO [facility] Atorvastatin Calcium (Atorvastatin 80 Mg Tab) 80 mg PO ONCE ONE Stop: 06/01/22 05:01 Calcium Carbonate/Glycine (Calcium Carbonate 500 Mg Chewable) 1,000 mg PO Q4HR PRN PRN Reason: Dyspepsia Clopidogrel Bisulfate (Clopidogrel 75 Mg Tab) 75 mg PO [facility] Last Admin: 05/28/22 20:36 Dose: 75 mg Dextrose/Water (Dextrose 50% Syringe 50 Ml) 25 ml IVP PER PROTOCOL PRN; Protocol PRN Reason: Hypoglycemia Dextrose/Water (Dextrose 50% Syringe 50 Ml) 50 ml IVP PER PROTOCOL PRN; Protocol PRN Reason: Hypoglycemia Famotidine (Famotidine 20 Mg Tab) 20 mg PO BID [facility] Last Admin: 05/29/22 08:49 Dose: 20 mg Fenofibrate (Fenofibrate 160 Mg Tab) 160 mg PO DAILY [facility] Last Admin: 05/29/22 08:49 Dose: 160 mg Heparin Sodium (Porcine) (Heparin Sodium 1,000 Un/Ml (10ml Vl)) 0 unit IV PER PROTOCOL PRN; Protocol PRN Reason: Low PTT Heparin Sodium/Sodium Chloride (25,000 unit/ Sodium Chloride) 250 mls @ 9.997 mls/hr IV .Q24H [facility]; Protocol Last Admin: 05/29/22 15:31 Dose: 7.6 units/kg/hr, 9.997 mls/hr Heparin Sodium (Porcine) 10, (000 unit/ Sodium Chloride) 1,001 mls @ 999 mls/hr IRRIGATION ONCE PRN PRN Reason: INTRA-OP Stop: 05/30/22 23:00 Heparin Sodium (Porcine) 2,500 (unit/ Sodium Chloride) 250.5 mls @ 250 mls/hr IRRIGATION ONCE PRN PRN Reason: INTRA-OP Stop: 05/30/22 23:00 Sodium Chloride 1,000 ml/ IV (Solution) 1,000 mls @ 131.542 mls/hr IV .Q7H37M [facility] Insulin Aspart (Insulin Aspart (Novolog) 100 Unit/Ml Vial) 0 unit SQ AC-TID [facility]; Protocol Last Admin: 05/29/22 14:44 Dose: Not Given Insulin Detemir (Insulin Detemir (Levemir) 100 Unit/Ml Syr) 70 unit SQ DAILY@0700 [facility] Last Admin: 05/29/22 06:00 Dose: Not Given Lactulose (Lactulose 20 Gm/30 Ml Cup) 20 gm PO DAILY PRN PRN Reason: Constipation Loratadine (Loratadine 10 Mg Tab) 10 mg PO DAILY PRN PRN Reason: Allergy Symptoms Lorazepam (Lorazepam 0.5 Mg Tab) 0.5 mg PO Q6HR PRN PRN Reason: Anxiety Metoprolol Tartrate (Metoprolol Tartrate 50 Mg Tab) 100 mg PO BID [facility] Last Admin: 05/29/22 08:49 Dose: 100 mg Naloxone HCl (Naloxone 0.4 Mg/Ml 1 Ml Vial) 0.2 mg IV Q2M PRN PRN Reason: Opioid Reversal Nitroglycerin (Nitroglycerin Sl Tabs 0.4 Mg Tab) 0.4 mg SUBLINGUAL Q5M PRN PRN Reason: Chest Pain Non-Formulary Medication (Semaglutide [Ozempic]) 0.5 mg SQ MO [facility] Ondansetron HCl (Ondansetron 4 Mg/2 Ml Vial) 4 mg IVP Q8HR PRN PRN Reason: Nausea And Vomiting Temazepam (Temazepam 15 Mg Cap) 15 mg PO HS PRN PRN Reason: Insomnia Past medical history to include: Coronary artery disease with stent, COPD, diabetes, hyperlipidemia, hypertension, osteoarthritis, sciatica, carotid arteries be monitored. Social history: Patient smoked a pack a day for 30 years stopped 97. No alcohol. . 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 Conjunctiva normal. HEENT: External appearance of nose and ears normal, oral cavity grossly normal. NECK: JVD not raised; masses not palpable. HEART: First and second heart sounds are normal; no edema. LUNGS:[ Respiratory rate normal; decreased breath sounds. ABDOMEN: Soft, nontender, liver spleen not palpable, no masses palpable. PSYCH: Alert and oriented x3; mood and affect normal. NEUROLOGICAL: Cranial nerves grossly intact; no facial asymmetry, power and sensation grossly intact. INVESTIGATIONS, reviewed in the clinical context: Nuclear stress test: Large inferior lateral wall stress-induced ischemic change. EF 35%. Global hypokinesia. May 29: White count 8.1 hemoglobin 13.8 platelets 249 potassium 5.7 BUN 42 creatinine 1.33 WBC 6.5 hemoglobin 13.5 platelets 282 potassium 5.6 BUN 45 creatinine 1.19 Troponin I 0.052, 0.05 to EKG tracing personally reviewed by me-normal sinus rhythm. Some ST segment depression in lateral leads Chest x-ray film personally reviewed by me-cardiomegaly Assessment and plan: -Possible unstable angina, the patient with known CAD Follow with cardiology. Telemetry. IV heparin. Aspirin, Lopressor. Nuclear stress tests positive with large reversibility.. For cardiac catheterization. -Chronic congestive heart failure from ischemic heart disease. Systolic dysfunction. EF 35% Add Lasix 20 mg a day. Hold Aldactone currently for hypertension -IV heparin monitoring Follow PTT -GERD Pepcid -Significant carotid artery artery stenosis close to 90% on the right side Follows with vascular outpatient -Morbid obesity BMI 41.6 Weight loss measures -Coronary artery disease with a prior history of stent Aspirin -COPD in an ex-smoker Albuterol when necessary -Diabetes mellitus type 2 chronically on insulin, Levemir 70 units subcu a.m. Slightly scale with Accu-Cheks -Hyperlipidemia, Lopid -Essential hypertension Lopressor. -Hyperkalemia: Uncontrolled Lokelma 10 mg twice a day for 2 doses -Primary osteoarthritis- Pain medications needed -Full code IV heparin. Aspirin. Lopressor. Lokelma 10 mg twice a day for 2 doses. Lasix 20 mg day. Positive stress test for cardiac catheterization. Discussed with patient.
[2022-05-29] MEDS: SODIUM ZIRCONIUM CYCLOSILICATE 10 GM PACKET PO SCH ×2 (17:13→21:24)
[2022-05-29] MEDS: FUROSEMIDE 20 MG TAB PO SCH (17:13)
[2022-05-29] MEDS: CLINDAMYCIN 150 MG CAP PO SCH ×2 (17:13→21:23)
[2022-05-29 20:29] LABS: Glucose,Whole Blood 186 mg/dL (70-110)
[2022-05-29] MEDS ORDERED: ATORVASTATIN 40 MG TAB PO SCH (21:00)
[2022-05-29] MEDS: CLOPIDOGREL 75 MG TAB PO SCH (21:23)
[2022-05-30] MEDS: HEPARIN SODIUM 1,000 UN/ML (10ML VL) IV PRN ×2 (01:26→09:35)
[2022-05-30 05:51] LABS: Glucose,Whole Blood 167 mg/dL (70-110)
--- NOTE | 2022-05-30 05:53 | P.PN ---
Subjective Progress Note Date: 05/30/22 Principal diagnosis: Chest discomfort Patient is a pleasant 70-year-old gentleman with CAD and prior CABG as well as hypertension and dyslipidemia who presented to the hospital with chest discomfort. He underwent yesterday myocardial perfusion imaging stress test that showed area appears to be large reversibility involving the lateral wall of the LV. He scheduled to undergo a heart catheterization this coming Wednesday. He was seen this morning. He didn't have episodes of chest discomfort of brief duration last night. Currently he is on maximize medical treatment including heparin IV and dual antiplatelet therapy as well as statin. I'm going to add a small dose of beta claduette to the current medical regimen and planning to perform a heart catheterization by Dr. Bolden this coming Wednesday unless the patient developed any more episodes of chest discomfort. Objective - Vital Signs Vital signs: Vital Signs Temp 97.9 F 05/30/22 04:23 Pulse 72 05/30/22 04:23 Resp 17 05/30/22 04:23 BP 129/58 05/30/22 04:23 Pulse Ox 95 05/30/22 04:23 FiO2 Intake & Output 05/29/22 05/29/22 05/30/22 06:59 18:59 06:59 Intake Total 688.118 352 339.47 Balance 688.118 352 339.47 Intake: Intake, IV Titration 203.118 112 99.47 Amount Heparin Sod,Pork in 0.45% 203.118 NaCl 25,000 unit In 0.45 % NaCl 1 250ml.bag @ 7.6 UNITS/KG/HR 9.997 mls/hr IV .Q24H [facility] Rx#: [id number] Heparin Sod,Pork in 0.45% 32 99.47 NaCl 25,000 unit In 0.45 % NaCl 1 250ml.bag @ 7.6 UNITS/KG/HR 9.997 mls/hr IV .Q24H [facility] Rx#: [id number] Sodium Chloride 0.9% 1, 80 000 ml In Empty Bag 1 bag @ 1 ML/KG/HR 131.542 mls /hr IV .Q7H37M [facility] Rx#: [id number] Oral 485 240 240 Other: Voiding Method Toilet Toilet Toilet # Voids 2 2 - Constitutional General appearance: Present: no acute distress - Respiratory Respiratory: bilateral: CTA - Cardiovascular Rhythm: regular Abnormal Heart Sounds: Present: systolic murmur - Labs CBC & Chem 7: 05/29/22 13:23 05/29/22 07:27 Labs: Abnormal Lab Results - Last 24 Hours (Table) 05/29/22 05/29/22 05/29/22 Range/Units 05:55 07:27 07:27 Hgb 12.9 L (13.0-17.5) gm/dL MCHC 30.7 L (31.0-37.0) g/dL APTT (22.0-30.0) sec Potassium 5.7 H (3.5-5.1) mmol/L BUN 42 H (9-20) mg/dL Creatinine 1.33 H (0.66-1.25) mg/dL Glucose 144 H (74-99) mg/dL POC Glucose (mg/dL) 150 H (70-110) mg/dL 05/29/22 05/29/22 05/29/22 Range/Units 07:27 16:21 20:28 Hgb (13.0-17.5) gm/dL MCHC (31.0-37.0) g/dL APTT 37.4 H (22.0-30.0) sec Potassium (3.5-5.1) mmol/L BUN (9-20) mg/dL Creatinine (0.66-1.25) mg/dL Glucose (74-99) mg/dL POC Glucose (mg/dL) 246 H 186 H (70-110) mg/dL Assessment and Plan Assessment: Assessment Chest discomfort Abnormal myocardial perfusion imaging stress test CAD with prior CABG Multiple comorbid conditions Plan Add Toprol-XL to the current medical regimen DC aspirin 325 and continue aspirin 81 Continue Plavix Proceed with heart catheterization on Wednesday
[2022-05-30] MEDS: INSULIN DETEMIR (LEVEMIR) 100 UNIT/ML SYR SQ SCH (06:56)
[2022-05-30] MEDS ORDERED: HEPARIN SODIUM,PORCINE 2,500 UNIT in SODIUM CHLORIDE 0.9% 250 ML IRRIGATION PRN (07:00)
[2022-05-30] MEDS ORDERED: HEPARIN SODIUM,PORCINE 10,000 UNIT in SODIUM CHLORIDE 0.9% 1,000 ML IRRIGATION PRN (07:00)
[2022-05-30 08:28] LABS: Basophils # (A) 0.1 k/uL (0-0.2); Basophils % (A) 1 %; Eosinophils # (A) 0.2 k/uL (0-0.7); Eosinophils % (A) 2 %; HCT 43.5 % (39.0-53.0); HGB 13.7 gm/dL (13.0-17.5); Hypochromasia Moderate; Lymphocytes # (A) 1.7 k/uL (1.0-4.8); Lymphocytes % (A) 21 %; MCH 29.3 pg (25.0-35.0); MCHC 31.5 g/dL (31.0-37.0); MCV 92.7 fL (80.0-100.0); Monocytes # (A) 0.4 k/uL (0-1.0); Monocytes % (A) 5 %; Neutrophils # (A) 5.3 k/uL (1.3-7.7); Neutrophils % (A) 68 %; Platelet Count 280 k/uL (150-450); RBC 4.69 m/uL (4.30-5.90); WBC 7.9 k/uL (3.8-10.6)
[2022-05-30 08:36] LABS: Partial Thromboplastin Time 31.8 sec (22.0-30.0); Prothrombin Time 10.9 sec (9.0-12.0)
[2022-05-30 08:44] LABS: Calcium 9.7 mg/dL (8.4-10.2); Potassium 4.9 mmol/L (3.5-5.1)
[2022-05-30] MEDS: CLINDAMYCIN 150 MG CAP PO SCH ×4 (09:32→21:47)
[2022-05-30] MEDS: FAMOTIDINE 20 MG TAB PO SCH ×2 (09:32→21:08)
[2022-05-30] MEDS: FUROSEMIDE 20 MG TAB PO SCH (09:32)
[2022-05-30] MEDS: FENOFIBRATE 160 MG TAB PO SCH (09:32)
[2022-05-30] MEDS: ASPIRIN 81 MG PO SCH (09:32)
[2022-05-30] MEDS: HEPARIN SOD,PORK IN 0.45% NACL 25,000 UNIT in 0.45% NACL 1 250ML.BAG IV SCH (09:33)
[2022-05-30] MEDS: METOPROLOL SUCCINATE (ER) 25 MG TAB.ER.24H PO SCH (09:33)
[2022-05-30 11:42] LABS: Glucose,Whole Blood 187 mg/dL (70-110)
[2022-05-30] MEDS: INSULIN ASPART (NovoLOG) 100 UNIT/ML VIAL SQ SCH ×3 (11:59→21:14)
--- NOTE | 2022-05-30 12:03 | P.PN ---
Subjective This is a very pleasant [address] Palomares. Chronic stable medical conditions include coronary artery disease, COPD, diabetes, hypertension, hyperlipidemia, osteoarthritis obesity. has known carotid artery disease. Has prior cardiac stents, follows with Dr. Elza Bolden. Patient been having indigestion after about 2 months. Symptoms could be present at rest or with activity. Early this morning woke up with their pressure-like sensation in the chest. Took some Marta[place] with some help. Also took some aspirin. [place] a bit better. Patient's exercise tolerance is somewhat limited because of sciatica bothering him on the right side for last few weeks. Decided to come in. Troponin positive at 0.052. Pain did not radiate to the shoulder or neck. at the bedside. No obvious exacerbating or relieving factor. No shortness of breath May 29: Up in a trochanter. No chest pain today. He underwent nuclear stress test. Large area of reversibility. On IV heparin. Resume care of the patient today 05/30/2022 Patient is sleeping well in bed with no difficulty. Denies chest pain Vital signs stable. Labs are stable, creatinine stable at 1.3, with some elements of acute kidney injury Echocardiogram showed ejection fraction of 35% Plan for cardiac cath on Wednesday Objective - Vital Signs Vital signs: Vital Signs Temp 97.9 F 05/30/22 04:23 Pulse 72 05/30/22 04:23 Resp 17 05/30/22 04:23 BP 129/58 05/30/22 04:23 Pulse Ox 95 05/30/22 04:23 FiO2 Intake & Output 05/29/22 05/30/22 05/30/22 18:59 06:59 18:59 Intake Total 352 339.47 112.706 Balance 352 339.47 112.706 Intake: Intake, IV Titration 112 99.47 112.706 Amount Heparin Sod,Pork in 0.45% 32 99.47 112.706 NaCl 25,000 unit In 0.45 % NaCl 1 250ml.bag @ 7.6 UNITS/KG/HR 9.997 mls/hr IV .Q24H [facility] Rx#: [id number] Sodium Chloride 0.9% 1, 80 000 ml In Empty Bag 1 bag @ 1 ML/KG/HR 131.542 mls /hr IV .Q7H37M [facility] Rx#: [id number] Oral 240 240 Other: Voiding Method Toilet Toilet # Voids 2 - Exam GENERAL: The patient is alert and oriented x3, not in any acute distress. Well developed, well nourished. HEENT: Pupils are round and equally reacting to light. EOMI. No scleral icterus. No conjunctival pallor. Normocephalic, atraumatic. No pharyngeal erythema. No thyromegaly. CARDIOVASCULAR: S1 and S2 present. No murmurs, rubs, or gallops. PULMONARY: Chest is clear to auscultation, no wheezing or crackles. ABDOMEN: Soft, nontender, nondistended, normoactive bowel sounds. No palpable organomegaly. MUSCULOSKELETAL: No joint swelling or deformity. EXTREMITIES: No cyanosis, clubbing, or pedal edema. NEUROLOGICAL: Gross neurological examination did not reveal any focal deficits. SKIN: No rashes. no petechiae. - Labs CBC & Chem 7: 05/30/22 07:44 05/30/22 07:44 Labs: Abnormal Lab Results - Last 24 Hours (Table) 05/29/22 05/29/22 05/30/22 Range/Units 16:21 20:28 05:50 APTT (22.0-30.0) sec BUN (9-20) mg/dL Creatinine (0.66-1.25) mg/dL Glucose (74-99) mg/dL POC Glucose (mg/dL) 246 H 186 H 167 H (70-110) mg/dL 05/30/22 05/30/22 05/30/22 Range/Units 07:44 07:44 11:39 APTT 31.8 H (22.0-30.0) sec BUN 37 H (9-20) mg/dL Creatinine 1.34 H (0.66-1.25) mg/dL Glucose 187 H (74-99) mg/dL POC Glucose (mg/dL) 187 H (70-110) mg/dL Assessment and Plan Assessment: Chest pain, possible non-STEMI with reversible ischemia evident on stress test and global hypokinesia Chronic congestive heart failure with ejection fraction of 35% Mild acute kidney injury Diabetes mellitus Hypertension Hyperlipidemia Plan: This is a pleasant 72 years old male with cardiac disease Plan for cardiac cath in the Wednesday morning Continue with aspirin and Plavix Continue with Levemir insulin and check hemoglobin A1c Labs and medication were reviewed.. Continue same treatment. Continue with symptomatic treatment. Resume home medication. Monitor lytes and vitals. DVT and GI prophylaxis. Further recommendations as per clinical course of the patient DVT prophylaxis: heparin GI Prophylaxis: Pepcid Prognosis is guarded
[2022-05-30 16:46] LABS: Glucose,Whole Blood 167 mg/dL (70-110)
[2022-05-30 20:17] LABS: Glucose,Whole Blood 184 mg/dL (70-110)
[2022-05-30] MEDS: CLOPIDOGREL 75 MG TAB PO SCH (21:08)
[2022-05-30] MEDS: ATORVASTATIN 80 MG TAB PO SCH (21:08)
[2022-05-31] MEDS: HEPARIN SOD,PORK IN 0.45% NACL 25,000 UNIT in 0.45% NACL 1 250ML.BAG IV SCH (00:19)
[2022-05-31] MEDS: HEPARIN SODIUM 1,000 UN/ML (10ML VL) IV PRN (00:22)
--- NOTE | 2022-05-31 06:10 | P.PN ---
Subjective Progress Note Date: 05/31/22 Principal diagnosis: Chest discomfort Patient is a pleasant 70-year-old gentleman with CAD and prior CABG as well as hypertension and dyslipidemia who presented to the hospital with chest discomfort. He underwent yesterday myocardial perfusion imaging stress test that showed area appears to be large reversibility involving the lateral wall of the LV. He scheduled to undergo a heart catheterization this coming Wednesday. He was seen this morning. He didn't have episodes of chest discomfort of brief duration last night. Currently he is on maximize medical treatment including heparin IV and dual antiplatelet therapy as well as statin. I'm going to add a small dose of beta claudette to the current medical regimen and planning to perform a heart catheterization by Dr. Bolden this coming Wednesday unless the patient developed any more episodes of chest discomfort. 05/31/2022 The patient was seen this morning. He remains asymptomatic in terms of chest pain or chest discomfort or shortness of breath. He is on maximize medical treatment including aspirin and high intensity statin and beta claudette and currently is on heparin IV. He is going to undergo a heart catheterization tomorrow. Objective - Vital Signs Vital signs: Vital Signs Temp 98.1 F 05/31/22 04:58 Pulse 77 05/31/22 04:58 Resp 16 05/31/22 04:58 BP 140/70 05/31/22 04:58 Pulse Ox 95 05/31/22 04:58 FiO2 Intake & Output 05/30/22 05/30/22 05/31/22 06:59 18:59 06:59 Intake Total 339.47 811.950 650.756 Balance 339.47 811.950 650.756 Intake: Intake, IV Titration 99.47 331.950 110.756 Amount Heparin Sod,Pork in 0.45% 99.47 251.950 110.756 NaCl 25,000 unit In 0.45 % NaCl 1 250ml.bag @ 7.6 UNITS/KG/HR 9.997 mls/hr IV .Q24H [facility] Rx#: [id number] Sodium Chloride 0.9% 1, 80 000 ml In Empty Bag 1 bag @ 1 ML/KG/HR 131.542 mls /hr IV .Q7H37M [facility] Rx#: [id number] Oral 240 480 540 Other: Voiding Method Toilet Toilet Toilet # Voids 2 1 - Constitutional General appearance: Present: no acute distress - Respiratory Respiratory: bilateral: CTA - Cardiovascular Rhythm: regular - Labs CBC & Chem 7: 05/30/22 07:44 05/30/22 07:44 Labs: Abnormal Lab Results - Last 24 Hours (Table) 05/30/22 05/30/22 05/30/22 Range/Units 07:44 07:44 11:39 APTT 31.8 H (22.0-30.0) sec BUN 37 H (9-20) mg/dL Creatinine 1.34 H (0.66-1.25) mg/dL Glucose 187 H (74-99) mg/dL POC Glucose (mg/dL) 187 H (70-110) mg/dL 05/30/22 05/30/22 05/30/22 Range/Units 15:45 16:44 20:15 APTT 36.8 H (22.0-30.0) sec BUN (9-20) mg/dL Creatinine (0.66-1.25) mg/dL Glucose (74-99) mg/dL POC Glucose (mg/dL) 167 H 184 H (70-110) mg/dL 05/30/22 Range/Units 23:05 APTT 40.8 H (22.0-30.0) sec BUN (9-20) mg/dL Creatinine (0.66-1.25) mg/dL Glucose (74-99) mg/dL POC Glucose (mg/dL) (70-110) mg/dL Assessment and Plan Assessment: Assessment Chest discomfort Abnormal myocardial perfusion imaging stress test CAD with prior CABG Multiple comorbid conditions Plan Continue the current medical regimen The patient remained chest pain-free Proceed with heart catheterization on Wednesday
[2022-05-31 06:32] LABS: Glucose,Whole Blood 146 mg/dL (70-110)
[2022-05-31] MEDS: INSULIN DETEMIR (LEVEMIR) 100 UNIT/ML SYR SQ SCH (07:07)
[2022-05-31 07:19] LABS: Calcium 9.3 mg/dL (8.4-10.2); Potassium 4.9 mmol/L (3.5-5.1)
[2022-05-31] MEDS: FAMOTIDINE 20 MG TAB PO SCH ×2 (09:47→19:58)
[2022-05-31] MEDS: ASPIRIN 81 MG PO SCH (09:47)
[2022-05-31] MEDS: FUROSEMIDE 20 MG TAB PO SCH (09:47)
[2022-05-31] MEDS: FENOFIBRATE 160 MG TAB PO SCH (09:47)
[2022-05-31] MEDS: METOPROLOL SUCCINATE (ER) 25 MG TAB.ER.24H PO SCH (09:48)
--- NOTE | 2022-05-31 10:38 | P.PN ---
Subjective This is a very pleasant [address] Palomares. Chronic stable medical conditions include coronary artery disease, COPD, diabetes, hypertension, hyperlipidemia, osteoarthritis obesity. has known carotid artery disease. Has prior cardiac stents, follows with Dr. Elza Bolden. Patient been having indigestion after about 2 months. Symptoms could be present at rest or with activity. Early this morning woke up with their pressure-like sensation in the chest. Took some Marta[place] with some help. Also took some aspirin. [place] a bit better. Patient's exercise tolerance is somewhat limited because of sciatica bothering him on the right side for last few weeks. Decided to come in. Troponin positive at 0.052. Pain did not radiate to the shoulder or neck. at the bedside. No obvious exacerbating or relieving factor. No shortness of breath May 29: Up in a trochanter. No chest pain today. He underwent nuclear stress test. Large area of reversibility. On IV heparin. Resume care of the patient today 05/30/2022 Patient is sleeping well in bed with no difficulty. Denies chest pain Vital signs stable. Labs are stable, creatinine stable at 1.3, with some elements of acute kidney injury Echocardiogram showed ejection fraction of 35% Plan for cardiac cath on 05/31/2022 Patient remains asymptomatic with no chest pain or dyspnea at rest. Patient reports some chest pain with walking. Currently no chest pain or other complaints and he looks comfortable. He remains on heparin drip with plan for cardiac cath tomorrow His creatinine improved to 1.1 Objective - Vital Signs Vital signs: Vital Signs Temp 98.9 F 05/31/22 08:00 Pulse 84 05/31/22 08:00 Resp 18 05/31/22 08:00 BP 134/66 05/31/22 08:00 Pulse Ox 94 L 05/31/22 08:00 FiO2 Intake & Output 05/30/22 05/31/22 05/31/22 18:59 06:59 18:59 Intake Total 811.950 650.756 Balance 811.950 650.756 Intake: Intake, IV Titration 331.950 110.756 Amount Heparin Sod,Pork in 0.45% 251.950 110.756 NaCl 25,000 unit In 0.45 % NaCl 1 250ml.bag @ 7.6 UNITS/KG/HR 9.997 mls/hr IV .Q24H [facility] Rx#: [id number] Sodium Chloride 0.9% 1, 80 000 ml In Empty Bag 1 bag @ 1 ML/KG/HR 131.542 mls /hr IV .Q7H37M [facility] Rx#: [id number] Oral 480 540 Other: Voiding Method Toilet Toilet # Voids 1 - Exam GENERAL: The patient is alert and oriented x3, not in any acute distress. Well developed, well nourished. HEENT: Pupils are round and equally reacting to light. EOMI. No scleral icterus. No conjunctival pallor. Normocephalic, atraumatic. No pharyngeal erythema. No thyromegaly. CARDIOVASCULAR: S1 and S2 present. No murmurs, rubs, or gallops. PULMONARY: Chest is clear to auscultation, no wheezing or crackles. ABDOMEN: Soft, nontender, nondistended, normoactive bowel sounds. No palpable organomegaly. MUSCULOSKELETAL: No joint swelling or deformity. EXTREMITIES: No cyanosis, clubbing, or pedal edema. NEUROLOGICAL: Gross neurological examination did not reveal any focal deficits. SKIN: No rashes. no petechiae. - Labs CBC & Chem 7: 05/30/22 07:44 05/31/22 05:51 Labs: Abnormal Lab Results - Last 24 Hours (Table) 05/30/22 05/30/22 05/30/22 Range/Units 11:39 15:45 16:44 APTT 36.8 H (22.0-30.0) sec Sodium (137-145) mmol/L BUN (9-20) mg/dL Glucose (74-99) mg/dL POC Glucose (mg/dL) 187 H 167 H (70-110) mg/dL 05/30/22 05/30/22 05/31/22 Range/Units 20:15 23:05 05:51 APTT 40.8 H (22.0-30.0) sec Sodium 136 L (137-145) mmol/L BUN 30 H (9-20) mg/dL Glucose 154 H (74-99) mg/dL POC Glucose (mg/dL) 184 H (70-110) mg/dL 05/31/22 05/31/22 Range/Units 05:51 06:31 APTT 61.6 H (22.0-30.0) sec Sodium (137-145) mmol/L BUN (9-20) mg/dL Glucose (74-99) mg/dL POC Glucose (mg/dL) 146 H (70-110) mg/dL Assessment and Plan Assessment: Chest pain, possible non-STEMI with reversible ischemia evident on stress test and global hypokinesia Chronic congestive heart failure with ejection fraction of 35% Mild acute kidney injury Diabetes mellitus Hypertension Hyperlipidemia Plan: This is a pleasant 72 years old male with cardiac disease Plan for cardiac cath in the Wednesday morning Continue with aspirin and Plavix Continue with Levemir insulin and check hemoglobin A1c Labs and medication were reviewed.. Continue same treatment. Continue with symptomatic treatment. Resume home medication. Monitor lytes and vitals. DVT and GI prophylaxis. Further recommendations as per clinical course of the patient DVT prophylaxis: heparin GI Prophylaxis: Pepcid Prognosis is guarded
[2022-05-31] MEDS: CLINDAMYCIN 150 MG CAP PO SCH ×4 (11:12→20:39)
[2022-05-31 11:41] LABS: Glucose,Whole Blood 177 mg/dL (70-110)
[2022-05-31] MEDS: INSULIN ASPART (NovoLOG) 100 UNIT/ML VIAL SQ SCH ×2 (13:08→17:33)
[2022-05-31 16:45] LABS: Glucose,Whole Blood 168 mg/dL (70-110)
[2022-05-31 19:30] LABS: Glucose,Whole Blood 152 mg/dL (70-110)
[2022-05-31] MEDS: ATORVASTATIN 80 MG TAB PO SCH (19:58)
[2022-05-31] MEDS: CLOPIDOGREL 75 MG TAB PO SCH (19:58)
[2022-05-31] MEDS: SODIUM CHLORIDE 0.9% 1,000 ML in EMPTY BAG 1 BAG IV SCH (23:11)
[2022-06-01] MEDS ORDERED: ATORVASTATIN 80 MG TAB PO ONE (05:00)
[2022-06-01] MEDS ORDERED: ASPIRIN 325 MG TAB PO ONE (05:00)
[2022-06-01] MEDS: CLINDAMYCIN 150 MG CAP PO SCH ×4 (06:07→20:18)
[2022-06-01] MEDS: FAMOTIDINE 20 MG TAB PO SCH ×2 (06:08→20:14)
[2022-06-01] MEDS: FENOFIBRATE 160 MG TAB PO SCH (06:08)
[2022-06-01] MEDS: METOPROLOL SUCCINATE (ER) 25 MG TAB.ER.24H PO SCH (06:08)
[2022-06-01] MEDS: ASPIRIN 81 MG PO SCH (06:08)
[2022-06-01 08:51] LABS: Calcium 9.3 mg/dL (8.4-10.2); Potassium 4.6 mmol/L (3.5-5.1)
[2022-06-01] MEDS ORDERED: NON FORMULARY DRUG (Semaglutide [Ozempic] 2 MG/0.75 ML Pen.Injctr) SQ SCH (09:00)
[2022-06-01] MEDS: INSULIN DETEMIR (LEVEMIR) 100 UNIT/ML SYR SQ SCH (11:02)
[2022-06-01] MEDS: SODIUM CHLORIDE 0.9% 1,000 ML in EMPTY BAG 1 BAG IV SCH ×2 (11:02→18:12)
[2022-06-01] MEDS: INSULIN ASPART (NovoLOG) 100 UNIT/ML VIAL SQ SCH ×3 (11:03→18:12)
[2022-06-01 12:02] LABS: Glucose,Whole Blood 117 mg/dL (70-110)
[2022-06-01] MEDS ORDERED: SODIUM CHLORIDE 0.9% 1,000 ML IV ONE (12:30)
[2022-06-01] MEDS ORDERED: fentaNYL (PF) 50 MCG/ML 2 ML AMP ONE (12:32)
[2022-06-01] MEDS ORDERED: LIDOCAINE 1% INJ 10MG/ML (30 ML VIAL-PF) SQ ONE ×3 (12:33→12:38)
[2022-06-01] MEDS ORDERED: fentaNYL (PF) 50 MCG/ML 2 ML AMP IVP ONE (12:35)
[2022-06-01] MEDS ORDERED: MIDAZOLAM 2 MG/2 ML VIAL IVP ONE (12:35)
[2022-06-01] MEDS ORDERED: IOPAMIDOL-370 100ML BTL INJ ONE ×2 (13:10→13:33)
[2022-06-01] MEDS ORDERED: HEPARIN SODIUM 1,000 UN/ML (10ML VL) IVP ONE (13:21)
[2022-06-01] MEDS ORDERED: niCARdipine 25 MG/10 ML VIAL ONE (13:22)
[2022-06-01] MEDS ORDERED: CLOPIDOGREL 75 MG TAB ONE (13:24)
[2022-06-01] MEDS ORDERED: CLOPIDOGREL 75 MG TAB PO ONE (13:25)
[2022-06-01] MEDS ORDERED: niCARdipine Syringe (1,000 mcg/10 mL) INTRACORON ONE (13:29)
[2022-06-01] MEDS ORDERED: SODIUM CHLORIDE 0.9% 1,000 ML in EMPTY BAG 1 BAG IV SCH (13:30)
[2022-06-01] MEDS ORDERED: MAG HYDROX/AL HYDROX/SIMETH 30 ML CUP PO PRN (13:30)
[2022-06-01] MEDS ORDERED: NITROGLYCERIN SL TABS 0.4 MG TAB SUBLINGUAL PRN (13:30)
[2022-06-01] MEDS ORDERED: ZOLPIDEM 5 MG TAB PO PRN (13:30)
[2022-06-01] MEDS ORDERED: ATROPINE SULFATE 0.1 MG/ML 10ML SYRINGE IV PRN (13:30)
[2022-06-01] MEDS ORDERED: RX INFO: IV CONTRAST WAS GIVEN 1 EACH MISC MISCELLANE PRN (13:30)
[2022-06-01 17:02] LABS: Glucose,Whole Blood 93 mg/dL (70-110)
--- NOTE | 2022-06-01 18:07 | P.PCN ---
Date of Procedure: 06/01/22 Operative Findings: Percutaneous coronary intervention Performing physician Ramin Yung MD Procedure performed Successful stenting of the SVG to RCA using 3.5 x 15 mm Xience JE with an excellent angiographic results Indication This is a 72-year-old gentleman who sees Dr. Bolden regularly who presented to the hospital with a chest d and ruled in for acute coronary event. He underwent a heart catheterization by Dr. Sarmiento and was found to have severe disease involving the SVG to RCA. In the light of that PCI was advised Approach Right common femoral artery Complications None Level of sedation Moderate with the patient at length of 10 minutes Procedure description Please refer to diagnostic heart catheterization was performed a earlier Anticoagulation was initiated using heparin with continuous ACT monitoring. Subsequently I did engage the SVG to RCA using JR4 guiding catheter. I did wired using a whisper wire. I did direct stenting of the lesion using 3.5 x 15 mm stent or the stent was positioned under fluoroscopy guidance and deployed under is nominal pressure. The following angiogram showed excellent angiographic results and the procedure was completed without any complication Postprocedure management Dual antiplatelet therapy using aspirin and Plavix for a 12 month Aggressive cholesterol control Risk factors modification Follow-up with the patient
[2022-06-01] MEDS: FUROSEMIDE 20 MG TAB PO SCH (18:08)
[2022-06-01] MEDS: HEPARIN SOD,PORK IN 0.45% NACL 25,000 UNIT in 0.45% NACL 1 250ML.BAG IV SCH (18:43)
[2022-06-01 19:34] LABS: Glucose,Whole Blood 135 mg/dL (70-110)
[2022-06-01] MEDS: CLOPIDOGREL 75 MG TAB PO SCH (20:14)
[2022-06-01] MEDS: ATORVASTATIN 80 MG TAB PO SCH (20:14)
[2022-06-02] MEDS: SODIUM CHLORIDE 0.9% 1,000 ML in EMPTY BAG 1 BAG IV SCH (05:04)
[2022-06-02 06:10] LABS: Glucose,Whole Blood 187 mg/dL (70-110)
[2022-06-02] MEDS: INSULIN DETEMIR (LEVEMIR) 100 UNIT/ML SYR SQ SCH (06:34)
[2022-06-02] MEDS: INSULIN ASPART (NovoLOG) 100 UNIT/ML VIAL SQ SCH ×2 (06:34→12:21)
[2022-06-02] MEDS: FAMOTIDINE 20 MG TAB PO SCH (08:27)
[2022-06-02] MEDS: METOPROLOL SUCCINATE (ER) 25 MG TAB.ER.24H PO SCH (08:27)
[2022-06-02] MEDS: FENOFIBRATE 160 MG TAB PO SCH (08:28)
[2022-06-02] MEDS: FUROSEMIDE 20 MG TAB PO SCH (08:28)
[2022-06-02] MEDS: ASPIRIN 81 MG PO SCH (08:28)
[2022-06-02] MEDS: CLINDAMYCIN 150 MG CAP PO SCH (08:29)
[2022-06-02 09:20] LABS: Calcium 9.7 mg/dL (8.4-10.2)
[2022-06-02 09:27] LABS: Basophils % (A) 0 %; Eosinophils # (A) 0.2 k/uL (0-0.7); Eosinophils % (A) 2 %; HCT 41.4 % (39.0-53.0); HGB 13.1 gm/dL (13.0-17.5); Hypochromasia Slight; Lymphocytes # (A) 1.4 k/uL (1.0-4.8); Lymphocytes % (A) 15 %; MCHC 31.7 g/dL (31.0-37.0); MCV 91.5 fL (80.0-100.0); Mean Platelet Volume 7.9; Monocytes # (A) 0.4 k/uL (0-1.0); Monocytes % (A) 5 %; Neutrophils # (A) 6.8 k/uL (1.3-7.7); Neutrophils % (A) 76 %; Platelet Count 258 k/uL (150-450); RBC 4.53 m/uL (4.30-5.90)
--- NOTE | 2022-06-02 10:37 | P.PN ---
Subjective Progress Note Date: 06/01/22 This is a very pleasant [address] Palomares. Chronic stable medical conditions include coronary artery disease, COPD, diabetes, hypertension, hyperlipidemia, osteoarthritis obesity. has known carotid artery disease. Has prior cardiac stents, follows with Dr. Elza Bolden. Patient been having indigestion after about 2 months. Symptoms could be present at rest or with activity. Early this morning woke up with their pressure-like sensation in the chest. Took some [place] with some help. Also took some aspirin. [place] a bit better. Patient's exercise tolerance is somewhat limited because of sciatica bothering him on the right side for last few weeks. Decided to come in. Troponin positive at 0.052. Pain did not radiate to the shoulder or neck. at the bedside. No obvious exacerbating or relieving factor. No shortness of breath May 29: Up in a trochanter. No chest pain today. He underwent nuclear stress test. Large area of reversibility. On IV heparin. Resume care of the patient today 05/30/2022 Patient is sleeping well in bed with no difficulty. Denies chest pain Vital signs stable. Labs are stable, creatinine stable at 1.3, with some elements of acute kidney i njury Echocardiogram showed ejection fraction of 35% Plan for cardiac cath on 05/31/2022 Patient remains asymptomatic with no chest pain or dyspnea at rest. Patient reports some chest pain with walking. Currently no chest pain or other complaints and he looks comfortable. He remains on heparin drip with plan for cardiac cath tomorrow His creatinine improved to 1.1 Objective - Vital Signs Vital signs: Vital Signs Temp 98.4 F 05/31/22 19:55 Pulse 80 06/01/22 03:45 Resp 17 06/01/22 03:45 BP 167/77 06/01/22 03:45 Pulse Ox 93 L 06/01/22 03:45 FiO2 Intake & Output 05/31/22 06/01/22 06/01/22 18:59 06:59 18:59 Other: Voiding Method Toilet Toilet # Voids 1 2 - Exam - Exam GENERAL: The patient is alert and oriented x3, not in any acute distress. Well developed, well nourished. HEENT: Pupils are round and equally reacting to light. EOMI. No scleral icterus. No conjunctival pallor. Normocephalic, atraumatic. No pharyngeal erythema. No thyromegaly. CARDIOVASCULAR: S1 and S2 present. No murmurs, rubs, or gallops. PULMONARY: Chest is clear to auscultation, no wheezing or crackles. ABDOMEN: Soft, nontender, nondistended, normoactive bowel sounds. No palpable organomegaly. MUSCULOSKELETAL: No joint swelling or deformity. EXTREMITIES: No cyanosis, clubbing, or pedal edema. NEUROLOGICAL: Gross neurological examination did not reveal any focal deficits. SKIN: No rashes. no petechiae. - Labs CBC & Chem 7: 06/02/22 08:31 06/02/22 08:31 Labs: Abnormal Lab Results - Last 24 Hours (Table) 05/31/22 05/31/22 05/31/22 Range/Units 11:40 16:43 19:27 APTT (22.0-30.0) sec BUN (9-20) mg/dL Glucose (74-99) mg/dL POC Glucose (mg/dL) 177 H 168 H 152 H (70-110) mg/dL 06/01/22 06/01/22 Range/Units 07:46 07:46 APTT 34.4 H (22.0-30.0) sec BUN 25 H (9-20) mg/dL Glucose 131 H (74-99) mg/dL POC Glucose (mg/dL) (70-110) mg/dL Assessment and Plan Assessment: Chest pain, possible non-STEMI with reversible ischemia evident on stress test and global hypokinesia Chronic congestive heart failure with ejection fraction of 35% Mild acute kidney injury Diabetes mellitus Hypertension Hyperlipidemia Plan: This is a pleasant 72 years old male with cardiac disease Plan for cardiac cath today Continue with aspirin and Plavix Continue with Levemir insulin and check hemoglobin A1c Labs and medication were reviewed.. Monitor lytes and vitals. DVT and GI prophylaxis. DVT prophylaxis: heparin GI Prophylaxis: Pepcid Prognosis is guarded Time with Patient: Greater than 30
[2022-06-02] MEDS ORDERED: lisinopriL 20 MG TAB PO SCH (11:00)
[2022-06-02 11:09] VITALS: BMI 38.6
[2022-06-02 11:39] LABS: Glucose,Whole Blood 149 mg/dL (70-110)
--- NOTE | 2022-06-02 12:15 | P.PN ---
Subjective This is a 72 year old female with a past medical history significant for coronary artery disease with previous 4V CABG in 2017 and PCI of RCA in 2013, hypertension, hyperlipidemia, carotid artery stenosis, and diabetes. Patient follows in the office with Dr. Sarmiento. We have been asked to see the patient in consultation for chest pain. Amanda scan reported as large inferior lateral wall stress-induced ischemic changes. Inferior wall may be prior infarct or stress- induced ischemic changes. Global hypokinesia with mild dyskinesia at the cardiac apex. Ejection fraction 35%. Patient underwent cardiac catheterization with Dr. Sarmiento report not available. And underwent PCI to the SVG to RCA by Dr. Yung on 06/01/2022. Patient seen and examined at bedside, no acute distress. He denies any chest pain or shortness of breath. Overall he is feeling well. His vital signs are stable. He is currently maintained on dual antiplatelet therapy with aspirin and Plavix. GENERAL: Well-appearing, well-nourished and in no acute distress. NECK: Supple without JVD or thyromegaly. LUNGS: Breath sounds clear to auscultation bilaterally. Respiration equal and unlabored. No wheezes, rales or rhonchi. HEART: Regular rate and rhythm without murmurs, rubs or gallops. S1 and S2 heard. EXTREMITIES: Normal range of motion, no edema. No clubbing or cyanosis. Peripheral pulses intact. SKIN: Right femoral cath site, clean, dry and intact, 2+ pulses ASSESSMENT Chest pain Abnormal Lexiscan stress test. Status post PCI SVG to RCA on 06/01. Coronary artery disease with previous PCI and CABG Hypertension Hyperlipidemia Hyperkalemia Carotid artery stenosis Diabetes PLAN: From cardiology perspective, patient is a stable to be discharged home. Continue to antiplatelet therapy with aspirin and Plavix Continue high intensity statin Continue Lasix, Lisinopril and beta claudette Follow up outpatient with Dr. Sarmiento within 1 week. Nurse Practitioner note has been reviewed, I agree with a documented findings and plan of care. Patient was seen and examined. Objective - Vital Signs Vital signs: Vital Signs Temp 98.5 F 06/02/22 08:00 Pulse 79 06/02/22 08:00 Resp 18 06/02/22 08:00 BP 159/73 06/02/22 08:00 Pulse Ox 93 L 06/02/22 08:00 FiO2 Intake & Output 06/01/22 06/02/22 06/02/22 18:59 06:59 18:59 Intake Total 50 118 Output Total 720 Balance 50 -720 118 Weight 122.1 kg 122.1 kg Intake: IV 50 Oral 118 Output: Urine 720 Other: Voiding Method Toilet Toilet Toilet - Labs CBC & Chem 7: 06/02/22 08:31 06/02/22 08:31 Labs: Abnormal Lab Results - Last 24 Hours (Table) 06/01/22 06/02/22 06/02/22 Range/Units 19:32 06:07 08:31 Sodium 136 L (137-145) mmol/L Chloride 97 L (98-107) mmol/L BUN 25 H (9-20) mg/dL Glucose 185 H (74-99) mg/dL POC Glucose (mg/dL) 135 H 187 H (70-110) mg/dL 06/02/22 Range/Units 11:38 Sodium (137-145) mmol/L Chloride (98-107) mmol/L BUN (9-20) mg/dL Glucose (74-99) mg/dL POC Glucose (mg/dL) 149 H (70-110) mg/dL
[2022-06-02 13:19] VITALS: BP 158/79; PULSE 86; RESP 16; TEMP 97.7
--- NOTE | 2022-06-03 00:12 | CC ---
CARDIAC CATHETERIZATION REPORT INDICATION: Unstable angina with abnormal stress test in a patient with known CAD, status post CABG with DAY to LAD, venous graft to diagonal and venous graft to PDA and PLV. PROCEDURE NOTE: After obtaining informed consent, left heart catheterization and coronary angiogram were performed via the right femoral artery. The patient has heavily calcified vessels and we have initially had challenges in passing the Glidewire into the iliac arteries. Dr. Yung, the on-call gas maker, manipulated a Glidewire across into the aorta and I used a long exchange length wire to exchange the catheters in the ascending aorta and complete the procedure. The patient received moderate conscious sedation. Total sedation time was 40 minutes. The patient tolerated the procedure well without any obvious immediate complications. FINDINGS: 1. Hemodynamics: Left ventricular end-diastolic pressure is 6 mm. There is no significant gradient across the aortic valve. 2. Left ventriculogram: Left ventriculogram was not performed. 3. Angiographic data in the negative coronaries: a.Left main coronary artery appears calcified but is free of significant stenosis. Divides into left anterior descending coronary artery and circumflex coronary artery. b.Circumflex coronary artery is totally occluded in its proximal portion. c.LAD appears occluded in the midportion after giving off a diagonal branch and there is competitive flow into the LAD. d.Right coronary artery appears totally occluded in its midportion. 4. Selective injection of the bypass grafts: a.DAY to LAD appears patent with proximal and distal anastomotic sites free of significant disease. [place] LAD is free of significant disease. b.Selective injection of the venous graft to the diagonal. There is a mild atherosclerotic plaque in its midportion but is otherwise free of significant disease. c.Venous graft to the PDA and PLV, it is a single graft that goes to both the vessels. There is a focal 99% stenosis, which is probably the vessel responsible for patient's symptoms and the abnormal stress test. CONCLUSIONS: Severe 3-vessel coronary artery disease as described above with a patent left internal mammary artery to left anterior descending, patent venous graft to diagonal with a focal severe stenosis involving the venous graft to the right coronary artery. PLAN: Patient will undergo angioplasty with stent placement of the same. MMODL / IJN: [id number] /
--- NOTE | 2022-06-04 16:35 | CDI ---
Documentation Clarification Form Date: 06/04/2022 04:26:07 PM From: Edelmira Gonzalez Phone: Admit Date: 05/28/2022 12:18:00 PM Patient Name: Blas Heredia Visit Number: [id number] Discharge Date: 06/02/2022 02:13:00 PM ATTENTION: The Clinical Documentation Specialists (CDI) and [facility] Coding Staff appreciate your assistance in clarifying documentation. Please respond to the clarification below the line at the bottom and electronically sign. The CDI & [facility] Coding staff will review the response and follow-up if needed. Please note: Queries are made part of the Legal Health Record. If you have any questions, please contact the author of this message via ITS. Dr. Damico E Sheet Your patient has the documented diagnosis of chronic congestive heart failure per 05/30/22 Progress Note. Additional information regarding the type and acuity of CHF is requested. History/Risk Factors: 72yo M, CAD w unstable angina s/p stent, Hx CABG, morbid obesity, HTN, HLD, DMII, RCA occlusion Clinical Indicators: VS/Pulse OX: 95 BNP: 121 Echocardiogram Results: Normal left ventricular dimension and systolic function 05/28/22 Nondiagnostic electrocardiogram stress testing in response to Lexiscan Please follow-up on the Cardiolite portion and a separate report 05/29/22 Chest X Ray: Chronic changes and mild cardiomegaly without new acute pulmonary process. Treatment: Add Lasix 20 mg a day. Hold Aldactone currently for hypertension In your professional opinion, can you please clarify the acuity and type of CHF if known? [ ] Acute Systolic Heart Failure (reduced EF) [ ] Chronic Systolic Heart Failure (reduced EF) [ ] Acute on Chronic Systolic Heart Failure (reduced EF) [ ] Acute Diastolic Heart Failure (preserved EF) [ ] Chronic Diastolic Heart Failure (preserved EF) [ ] Acute on Chronic Diastolic Heart Failure (preserved EF) [ ] Acute Systolic & Diastolic Heart Failure [ ] Chronic Systolic & Diastolic Heart Failure [ ] Acute on Chronic Heart Failure Systolic & Diastolic Heart Failure [ ] Other, please specify [ ] Unable to determine (Template Last Revised: September 2020) Clinically no [facility]. EF 50-55 % MTDD
== END 2022-06-02 14:13 | disposition home or self-care (01) | DRG 247 ==
LOC: EC 09:34 → 3SCARD 12:18
PROVIDERS: ADMIT Hospitalist; ATTEND Hospitalist
PROC: 027034Z Dilation of Coronary Artery, One Artery with Drug-eluting Intraluminal Device, Percutaneous Approach (ICD-10-PCS; 2022-06-01 07:30)
PROC: 4A023N7 Measurement of Cardiac Sampling and Pressure, Left Heart, Percutaneous Approach (ICD-10-PCS; principal; 2022-06-02)
PROC: B2131ZZ Fluoroscopy of Multiple Coronary Artery Bypass Grafts using Low Osmolar Contrast (ICD-10-PCS; 2022-06-02)
PROC: B2111ZZ Fluoroscopy of Multiple Coronary Arteries using Low Osmolar Contrast (ICD-10-PCS; 2022-06-02)
DX: I21.4 Non-ST elevation (NSTEMI) myocardial infarction (principal); N17.9 Acute kidney failure, unspecified; Z68.41 Body mass index [BMI] 40.0-44.9, adult; I11.9 Hypertensive heart disease without heart failure; J44.9 Chronic obstructive pulmonary disease, unspecified; E66.01 Morbid (severe) obesity due to excess calories; I65.21 Occlusion and stenosis of right carotid artery; I34.0 Nonrheumatic mitral (valve) insufficiency; I25.110 Atherosclerotic heart disease of native coronary artery with unstable angina pectoris; I25.700 Atherosclerosis of coronary artery bypass graft(s), unspecified, with unstable angina pectoris; K30 Functional dyspepsia; M54.31 Sciatica, right side; E78.5 Hyperlipidemia, unspecified; K21.9 Gastro-esophageal reflux disease without esophagitis; E87.5 Hyperkalemia; M19.91 Primary osteoarthritis, unspecified site; I34.81 Nonrheumatic mitral (valve) annulus calcification; Z79.85 Long-term (current) use of injectable non-insulin antidiabetic drugs; Z95.5 Presence of coronary angioplasty implant and graft; Z87.891 Personal history of nicotine dependence; Z79.4 Long term (current) use of insulin; Z79.02 Long term (current) use of antithrombotics/antiplatelets; Z79.82 Long term (current) use of aspirin; Z28.310 Unvaccinated for COVID-19; Z88.2 Allergy status to sulfonamides; I25.2 Old myocardial infarction; Z88.1 Allergy status to other antibiotic agents; Z88.0 Allergy status to penicillin; Z79.899 Other long term (current) drug therapy
CPT/HCPCS: 36415; 71046; 78452; 80048; 80053; 83036; 83735; 83880; 84484; 85025; 85610; 85730; 93005; 93017; 93306; 93459; 96374; 99291

== ENCOUNTER 2022-11-10 02:56 | Observation (INO) | payer MEDICARE ==
--- NOTE | 2022-11-10 03:42 | XR ---
EXAMINATION TYPE: XR chest 2V DATE OF EXAM: 11/10/2022 COMPARISON: 05/28/2022 HISTORY: Chest pain TECHNIQUE: FINDINGS: There are some interstitial infiltrates and atelectasis is The heart in the left lower lobe. The right lung is clear. No heart failure. There are sternal wires. There are chest leads. IMPRESSION: Left lower lobe interstitial infiltrates and atelectasis similar to the old exam.
[2022-11-10 04:00] LABS: Basophils % (A) 0 %; Eosinophils # (A) 0.2 k/uL (0-0.7); Eosinophils % (A) 3 %; HCT 41.7 % (39.0-53.0); HGB 13.4 gm/dL (13.0-17.5); Lymphocytes # (A) 2.1 k/uL (1.0-4.8); Lymphocytes % (A) 27 %; MCH 29.5 pg (25.0-35.0); MCHC 32.1 g/dL (31.0-37.0); MCV 91.9 fL (80.0-100.0); Mean Platelet Volume 7.8; Monocytes # (A) 0.5 k/uL (0-1.0); Monocytes % (A) 6 %; Neutrophils # (A) 4.8 k/uL (1.3-7.7); Neutrophils % (A) 62 %; Platelet Count 276 k/uL (150-450); RBC 4.54 m/uL (4.30-5.90); RDW 15.2 % (11.5-15.5); WBC 7.7 k/uL (3.8-10.6)
[2022-11-10 04:07] LABS: Albumin 4.1 g/dL (3.5-5.0); Calcium 9.6 mg/dL (8.4-10.2); Magnesium 1.9 mg/dL (1.6-2.3); Potassium 5.3 mmol/L (3.5-5.1); Total Bilirubin 0.6 mg/dL (0.2-1.3); Total Protein 7.7 g/dL (6.3-8.2)
[2022-11-10 04:23] LABS: Partial Thromboplastin Time 25.6 sec (22.0-30.0); Prothrombin Time 10.3 sec (9.0-12.0)
[2022-11-10] MEDS ORDERED: NALOXONE 0.4 MG/ML 1 ML VIAL IV PRN (04:46)
--- NOTE | 2022-11-10 04:46 | ED ---
General Adult HPI - General Chief complaint: Chest Pain Stated complaint: chest pain Time Seen by Provider: 11/10/22 03:02 Source: patient Mode of arrival: ambulatory Limitations: no limitations - History of Present Illness Initial comments: This is a 72-year-old male with an extensive cardiac past medical history including previous cardiac stenting in May and previous CABG as well as diabetes and hypertension presents emergency department for left-sided chest pain. The patient stated that he had an episode earlier in the day for he had chest pain and a left side and took a nitroglycerin tablet and relieved his chest pain. The patient did state that he got up out of bed this evening and went to go use the restroom when he had worsening chest pain once again retook a second dose of nitroglycerin and had improvement of his pain. The patient stated that because of this second episode of pain he came to the emergency department for further evaluation. The patient did state that it feels similar to his previous heart issues but denied any nausea or vomiting. The patient was resting in bed comfortably currently without any acute pain or distress. - Related Data Home Medications Medication Instructions Recorded Confirmed Clopidogrel [Plavix] 75 mg PO HS 12/19/19 05/28/22 gemfibroziL [Lopid] 600 mg PO AC-BID 11/27/20 05/28/22 Cetirizine HCl [Zyrtec] 10 mg PO DAILY PRN 05/28/22 05/28/22 Insulin Degludec [Tresiba 80 units SQ DAILY 05/28/22 05/28/22 Flextouch U-200 Pen] Semaglutide [Ozempic] 0.5 mg SQ MO 05/28/22 05/28/22 lisinopriL [Zestril] 40 mg PO DAILY 05/28/22 05/28/22 Previous Rx's Medication Instructions Recorded Aspirin 81 mg PO DAILY #90 tab 06/02/22 Furosemide [Lasix] 20 mg PO DAILY #60 tab 06/02/22 Metoprolol Succinate (ER) [Toprol 25 mg PO DAILY #90 tab 06/02/22 XL] Nitroglycerin Sl Tabs [Nitrostat] 0.4 mg SUBLINGUAL Q5M PRN #25 tab 06/02/22 Allergies Allergy/AdvReac Type Severity Reaction Status Date / Time Penicillins Allergy Unknown Verified 11/10/22 02:57 Childhood Sulfa (Sulfonamide Allergy Rash/Hives Verified 11/10/22 02:57 Antibiotics) tetracycline Allergy Rash/Hives Verified 11/10/22 02:57 Review of Systems ROS Statement: Those systems with pertinent positive or pertinent negative responses have been documented in the HPI. ROS Other: All systems not noted in ROS Statement are negative. Past Medical History Past Medical History: Coronary Artery Disease (CAD), Chest Pain / Angina, COPD, Diabetes Mellitus, Hyperlipidemia, Hypertension, Myocardial Infarction (MS), Osteoarthritis (OA) Additional Past Medical History / Comment(s): past hx of COPD, vertigo Last Myocardial Infarction Date:: 2012 History of Any Multi-Drug Resistant Organisms: None Reported Past Surgical History: Appendectomy, Heart Catheterization, Heart Catheterization With Stent Additional Past Surgical History / Comment(s): srinivasa carotid Endarterectomy, cardiac stents x2, QUAD CABG 2017. HEMORRHOIDECTOMY Past Anesthesia/Blood Transfusion Reactions: No Reported Reaction Date of Last Stent Placement:: 2012 Past Psychological History: No Psychological Hx Reported Smoking Status: Former smoker Past Alcohol Use History: None Reported Past Drug Use History: None Reported - Past Family History Father Family Medical History: Coronary Artery Disease (CAD) Mother Family Medical History: Cancer, Renal Disease Brother(s) Family Medical History: Cancer Sister(s) Family Medical History: No Reported History Son(s) Family Medical History: Cancer (patient has biological son and a stepson his biological son had thyroid cancer.) General Exam Limitations: no limitations General appearance: alert, in no apparent distress, obese Head exam: Present: atraumatic, normocephalic, normal inspection Eye exam: Present: normal appearance, PERRL Pupils: Present: normal accommodation ENT exam: Present: normal exam, normal oropharynx, mucous membranes moist Neck exam: Present: normal inspection, full ROM Respiratory exam: Present: normal lung sounds bilaterally Cardiovascular Exam: Present: regular rate, normal rhythm, normal heart sounds GI/Abdominal exam: Present: soft, normal bowel sounds Extremities exam: Present: normal inspection, full ROM Back exam: Present: normal inspection, full ROM Neurological exam: Present: alert, oriented X3, CN II-XII intact Psychiatric exam: Present: normal affect, normal mood Skin exam: Present: warm, dry Course Vital Signs 11/10/22 11/10/22 02:58 03:21 Temperature 98 F Pulse Rate 91 Pulse Rate [ 80 Apical] Respiratory 18 Rate Blood Pressure 162/93 O2 Sat by Pulse 98 Oximetry EKG Findings - EKG Comments: EKG Findings:: An EKG was obtained and was interpreted by myself showing a rate of 85, CA interval of 201, QRS duration 92 and QTC of 402. This EKG showed a normal sinus rhythm with no ST segment elevation or depression noted. Medical Decision Making - Medical Decision Making Was pt. sent in by a medical professional or institution (FELICITA Farrell, INGREDIENT SPECIALIST, urgent care, hospital, or care home...) When possible be specific @ -No Did you speak to anyone other than the patient for history (EMS, parent, family, police, friend...)? What history was obtained from this source @ -Yes, patient's Did you review nursing and triage notes (agree or disagree)? Why? @ -I reviewed and agree with nursing and triage notes Were old charts reviewed (outside hosp., previous admission, EMS record, old EKG, old radiological studies, urgent care reports/EKG's, care home records)? Report findings @ -No old charts were reviewed Differential Diagnosis (chest pain, altered mental status, abdominal pain women, abdominal pain men, vaginal bleeding, weakness, fever, dyspnea, syncope, headache, dizziness, GI bleed, back pain, seizure, CVA, palpatations, mental health)? @ -ACS, pneumonia, chest wall muscle strain EKG interpreted by me (3pts min.). @ -As above X-rays interpreted by me (1pt min.). @ -Chest x-ray was obtained and was interpreted by myself showing left lower lobe interstitial infiltrates and atelectasis similar to the old exam. CT interpreted by me (1pt min.). @ -None done U/S interpreted by me (1pt. min.). @ -None done What testing was considered but not performed or refused? (CT, X-rays, U/S, labs)? Why? @ -None What meds were considered but not given or refused? Why? @ -None Did you discuss the management of the patient with other professionals (professionals i.e. FELICITA Farrell, INGREDIENT SPECIALIST, lab, RT, psych nurse, social media senior associate, solder making supervisor, teacher, earth science technical officer, leather case finisher)? Give summary @ -Yes, admitting physician Was smoking cessation discussed for >3mins.? @ -No Was critical care preformed (if so, how long)? @ -No Were there social determinants of health that impacted care today? How? (Homelessness, low income, unemployed, alcoholism, drug addiction, transportation, low edu. Level, literacy, decrease access to med. care, [facility], rehab)? @ -No Was there de-escalation of care discussed even if they declined (Discuss DNR or withdrawal of care, Hospice)? DNR status @ -No What co-morbidities impacted this encounter? (DM, HTN, Smoking, COPD, CAD, Cancer, CVA, ARF, Chemo, Hep., AIDS, mental health diagnosis, sleep apnea, morbid obesity)? @ -Hypertension, diabetes, previous cardiac stenting and CABG Was patient admitted / discharged? Hospital course, mention meds given and route, prescriptions, significant lab abnormalities, going to OR and other pertinent info. @ -The patient was seen and evaluated in emergency department. Physical exam, the patient was resting in bed without any acute distress. Vital signs admission were stable. Laboratory workup as well as chest x-ray and EKG were obtained. All workup was negative. Due to the patient's cardiac history in the setting of left-sided chest pain requiring 2 doses of nitroglycerin, the patient will be placed in observation to be seen and evaluated by cardiology. The patient was agreeable to this plan and was admitted under observation in stable condition. Undiagnosed new problem with uncertain prognosis? @ -No Drug Therapy requiring intensive monitoring for toxicity (Heparin, Nitro, Insulin, Cardizem)? @ -No Were any procedures done? @ -No Diagnosis/symptom? @ -Chest pain, rule out ACS Acute, or Chronic, or Acute on Chronic? @ -Acute Uncomplicated (without systemic symptoms) or Complicated (systemic symptoms)? @ -Complicated Side effects of treatment? @ -No Exacerbation, Progression, or Severe Exacerbation? @ -No Poses a threat to life or bodily function? How? (Chest pain, USA, MS, pneumonia, PE, COPD, DKA, ARF, appy, cholecystitis, CVA, Diverticulitis, Homicidal, Suicidal, threat to staff... and all critical care pts) @ -Yes, chest pain can be caused by ACS which can lead to permanent cardiac damage and possible . - Lab Data Result diagrams: 11/10/22 03:21 11/10/22 03:21 Lab Results 11/10/22 11/10/22 11/10/22 Range/Units 03:21 03:21 03:21 WBC 7.7 (3.8-10.6) k/uL RBC 4.54 (4.30-5.90) m/uL Hgb 13.4 (13.0-17.5) gm/dL Hct 41.7 (39.0-53.0) % MCV 91.9 (80.0-100.0) fL MCH 29.5 (25.0-35.0) pg MCHC 32.1 (31.0-37.0) g/dL RDW 15.2 (11.5-15.5) % Plt Count 276 (150-450) k/uL MPV 7.8 Neutrophils % 62 % Lymphocytes % 27 % Monocytes % 6 % Eosinophils % 3 % Basophils % 0 % Neutrophils # 4.8 (1.3-7.7) k/uL Lymphocytes # 2.1 (1.0-4.8) k/uL Monocytes # 0.5 (0-1.0) k/uL Eosinophils # 0.2 (0-0.7) k/uL Basophils # 0.0 (0-0.2) k/uL PT 10.3 (9.0-12.0) sec INR 1.0 (<1.2) APTT 25.6 (22.0-30.0) sec Sodium 137 (137-145) mmol/L Potassium 5.3 H (3.5-5.1) mmol/L Chloride 106 (98-107) mmol/L Carbon Dioxide 21 L (22-30) mmol/L Anion Gap 10 mmol/L BUN 46 H (9-20) mg/dL Creatinine 1.30 H (0.66-1.25) mg/dL Est GFR (CKD-EPI)AfAm 63 (>60 ml/min/1.73 sqM) Est GFR (CKD-EPI)NonAf 55 (>60 ml/min/1.73 sqM) Glucose 212 H (74-99) mg/dL Calcium 9.6 (8.4-10.2) mg/dL Magnesium 1.9 (1.6-2.3) mg/dL Total Bilirubin 0.6 (0.2-1.3) mg/dL AST 30 (17-59) U/L ALT 20 (4-49) U/L Alkaline Phosphatase 59 (38-126) U/L Troponin I (0.000-0.034) ng/mL Total Protein 7.7 (6.3-8.2) g/dL Albumin 4.1 (3.5-5.0) g/dL 11/10/22 Range/Units 03:21 WBC (3.8-10.6) k/uL RBC (4.30-5.90) m/uL Hgb (13.0-17.5) gm/dL Hct (39.0-53.0) % MCV (80.0-100.0) fL MCH (25.0-35.0) pg MCHC (31.0-37.0) g/dL RDW (11.5-15.5) % Plt Count (150-450) k/uL MPV Neutrophils % % Lymphocytes % % Monocytes % % Eosinophils % % Basophils % % Neutrophils # (1.3-7.7) k/uL Lymphocytes # (1.0-4.8) k/uL Monocytes # (0-1.0) k/uL Eosinophils # (0-0.7) k/uL Basophils # (0-0.2) k/uL PT (9.0-12.0) sec INR (<1.2) APTT (22.0-30.0) sec Sodium (137-145) mmol/L Potassium (3.5-5.1) mmol/L Chloride (98-107) mmol/L Carbon Dioxide (22-30) mmol/L Anion Gap mmol/L BUN (9-20) mg/dL Creatinine (0.66-1.25) mg/dL Est GFR (CKD-EPI)AfAm (>60 ml/min/1.73 sqM) Est GFR (CKD-EPI)NonAf (>60 ml/min/1.73 sqM) Glucose (74-99) mg/dL Calcium (8.4-10.2) mg/dL Magnesium (1.6-2.3) mg/dL Total Bilirubin (0.2-1.3) mg/dL AST (17-59) U/L ALT (4-49) U/L Alkaline Phosphatase (38-126) U/L Troponin I 0.027 (0.000-0.034) ng/mL Total Protein (6.3-8.2) g/dL Albumin (3.5-5.0) g/dL Disposition Clinical Impression: Chest pain Disposition: ADMITTED IP TO THIS HOSP Condition: Stable Is patient prescribed a controlled substance at d/c from ED?: No Referrals: David Palomares MD [Primary Care Provider] - 1-2 days Time of Disposition: 04:15 Decision to Admit Reason: Admit from EC Decision Date: 11/10/22 Decision Time: 04:15
[2022-11-10] MEDS ORDERED: HEPARIN SODIUM,PORCINE 2,500 UNIT in SODIUM CHLORIDE 0.9% 250 ML IRRIGATION PRN (07:00)
[2022-11-10] MEDS ORDERED: HEPARIN SODIUM,PORCINE 10,000 UNIT in SODIUM CHLORIDE 0.9% 1,000 ML IRRIGATION PRN (07:00)
[2022-11-10] MEDS ORDERED: NITROGLYCERIN SL TABS 0.4 MG TAB SUBLINGUAL PRN ×3 (08:49→12:56)
[2022-11-10] MEDS ORDERED: ALPRAZolam 0.5 MG TAB PO PRN (08:50)
[2022-11-10] MEDS ORDERED: ATORVASTATIN 80 MG TAB PO STA (08:50)
[2022-11-10] MEDS ORDERED: ASPIRIN 325 MG TAB PO STA (08:50)
[2022-11-10] MEDS ORDERED: ALPRAZolam 0.25 MG TAB PO PRN (08:50)
[2022-11-10] MEDS ORDERED: ATORVASTATIN 40 MG TAB PO SCH (09:00)
[2022-11-10] MEDS ORDERED: ASPIRIN 81 MG PO SCH (09:00)
[2022-11-10] MEDS: METOPROLOL SUCCINATE (ER) 25 MG TAB.ER.24H PO SCH (09:34)
[2022-11-10] MEDS: lisinopriL 20 MG TAB PO SCH (09:34)
[2022-11-10] MEDS: NITROGLYCERIN OINT 1 INCH/GM PACKET TOPICAL SCH ×3 (09:35→21:54)
[2022-11-10] MEDS ORDERED: LIDOCAINE 1% INJ 10MG/ML (20 ML MDV) ONE (11:26)
[2022-11-10] MEDS ORDERED: VERAPAMIL 2.5 MG/ML 2 ML AMP ONE (11:26)
[2022-11-10] MEDS ORDERED: LIDOCAINE 1% INJ 10MG/ML (20 ML MDV) SQ ONE (11:52)
[2022-11-10] MEDS ORDERED: fentaNYL (PF) 50 MCG/ML 2 ML AMP IVP ONE (11:57)
[2022-11-10] MEDS ORDERED: MIDAZOLAM 2 MG/2 ML VIAL IVP ONE (11:57)
[2022-11-10] MEDS ORDERED: Semaglutide [Ozempic] 2 MG/0.75 ML Pen.Injctr SQ SCH (12:00)
[2022-11-10] MEDS ORDERED: SODIUM CHLORIDE 0.9% 1,000 ML IV ONE (12:09)
[2022-11-10] MEDS ORDERED: IOPAMIDOL-370 125ML BTL INJ ONE ×2 (12:20→12:40)
--- NOTE | 2022-11-10 12:26 | P.CRDCN ---
History of Present Illness Consult date: 11/10/22 Consult reason: chest pain History of present illness: HISTORY OF PRESENT ILLNESS: This is a 72-year-old male patient of Dr. Sarmiento with a past medical history significant for coronary artery disease with previous 4V CABG in 2016 and PCI of venous graft to the RCA in May 2022, hypertension, hyperlipidemia, carotid artery stenosis, and diabetes, COPD, remote history of tobacco use with 45 pack years, quit 20 years ago. We have been asked to see the patient in consultation for chest pain. Patient states that he developed chest pain while he was sleeping and woke him up and it was similar to that when he required stent placement in May. Patient is not normally active. He is scheduled to see a back surgeon today. He denies any edema, dizziness, palpitations. He does have episode of PND last evening but not normal for him. He states he had 2 more episodes of chest pain last evening around 9:30 and again at 2 in the morning. He states that he was taken off Plavix in August. * EKG reveals sinus rhythm. * Chest xray left lower lobe interstitial infiltrates and atelectasis similar to old exam * Laboratory data: CBC normal. INR 1. Sodium 137, potassium 5.3, BUN 46 creatinine 1.3. Glucose 212. Liver function tests are normal. Magnesium 1.9. Troponin 0.027 * Current home cardiac medications include aspirin 81 mg daily, Lasix 20 mg daily, lisinopril 20 mg daily, Toprol-XL 25 mg daily, nitroglycerin sublingual * Most recent echocardiogram obtained in May 2022 revealed normal left ventricular dimensions and systolic function REVIEW OF SYSTEMS: At the time of my exam: CONSTITUTIONAL: Denies fever or chills. HEENT: Denies blurred vision, vision changes, or eye pain. Denies hemoptysis CARDIOVASCULAR: Denies chest pain. Denies orthopnea. Denies PND. Denies palpitations RESPIRATORY: Denies shortness of breath. GASTROINTESTINAL: Denies abdominal pain. Denies nausea or vomiting. HEMATOLOGIC: Denies bleeding disorders. GENITOURINARY: Denies any blood in urine. SKIN: Denies pruitis. Denies rash. PHYSICAL EXAM: VITAL SIGNS: Reviewed. GENERAL: Well-developed in no acute distress. HEENT: Head is normocephalic. Pupils are equal, round. Sclerae anicteric. Mucous membranes of the mouth are moist. Neck supple. No JVD or thyromegaly LUNGS: Respirations even and unlabored. Lungs essentially clear to auscultation bilaterally. HEART: Regular rate and rhythm. S1 and S2 heard. ABDOMEN: Soft. Nondistended. Nontender. EXTREMITIES: Normal range of motion. No clubbing or cyanosis. Peripheral pulses intact. No lower extremity edema NEUROLOGIC: Awake and alert. Oriented x 3. ASSESSMENT: Chest pain, possible unstable angina Coronary artery disease with previous PCI and CABG Hypertension Hyperlipidemia Hyperkalemia Carotid artery stenosis Diabetes COPD PLAN: Resume home cardiac medications Patient will be scheduled for cardiac catheterization with Dr. Sarmiento today. Obtain echocardiogram Further recommendations pending patient's course Nurse practitioner note has been reviewed by physician. Signing provider agrees with the documented findings, assessment, and plan of care. Past Medical History Past Medical History: Coronary Artery Disease (CAD), Chest Pain / Angina, COPD, Diabetes Mellitus, Hyperlipidemia, Hypertension, Myocardial Infarction ([place]), Osteoarthritis (OA) Additional Past Medical History / Comment(s): past hx of COPD, vertigo Last Myocardial Infarction Date:: 2012 History of Any Multi-Drug Resistant Organisms: None Reported Past Surgical History: Appendectomy, Heart Catheterization, Heart Catheterization With Stent Additional Past Surgical History / Comment(s): srinivasa carotid Endarterectomy, cardiac stents x2, QUAD CABG 2017. HEMORRHOIDECTOMY Past Anesthesia/Blood Transfusion Reactions: No Reported Reaction Date of Last Stent Placement:: 2012 Past Psychological History: No Psychological Hx Reported Smoking Status: Former smoker Past Alcohol Use History: None Reported Past Drug Use History: None Reported - Past Family History Father Family Medical History: Coronary Artery Disease (CAD) Mother Family Medical History: Cancer, Renal Disease Brother(s) Family Medical History: Cancer Sister(s) Family Medical History: No Reported History Son(s) Family Medical History: Cancer (patient has biological son and a stepson his biological son had thyroid cancer.) Medications and Allergies Home Medications Medication Instructions Recorded Confirmed Type gemfibroziL [Lopid] 600 mg PO AC-BID 11/27/20 11/10/22 History Insulin Degludec [Tresiba 100 units SQ HS 05/28/22 11/10/22 History Flextouch U-200 Pen] Semaglutide [Ozempic] 0.5 mg SQ TU 05/28/22 11/10/22 History lisinopriL [Zestril] 40 mg PO DAILY 05/28/22 11/10/22 History Aspirin 81 mg PO DAILY #90 tab 06/02/22 11/10/22 Rx Furosemide [Lasix] 20 mg PO DAILY #60 tab 06/02/22 11/10/22 Rx Metoprolol Succinate (ER) [Toprol 25 mg PO DAILY #90 tab 06/02/22 11/10/22 Rx XL] Nitroglycerin Sl Tabs [Nitrostat] 0.4 mg SL Q5M PRN 11/10/22 11/10/22 History Allergies Allergy/AdvReac Type Severity Reaction Status Date / Time Penicillins Allergy Unknown Verified 11/10/22 06:56 Childhood Sulfa (Sulfonamide Allergy Rash/Hives Verified 11/10/22 06:56 Antibiotics) tetracycline Allergy Rash/Hives Verified 11/10/22 06:56 Physical Exam Vitals: Vital Signs Temp Pulse Pulse Resp BP Pulse Ox 11/10/22 06:09 98.3 F 81 16 167/86 96 11/10/22 03:21 80 11/10/22 02:58 98 F 91 18 162/93 98 Intake and Output 11/09/22 11/10/22 11/10/22 22:59 06:59 14:59 Other: Weight 127.006 kg Results 11/10/22 03:21 11/10/22 03:21 Cardiac Enzymes 11/10/22 11/10/22 Range/Units 03:21 03: AST 30 (17-59) U/L Troponin I 0.027 (0.000-0.034) ng/mL Coagulation 11/10/22 Range/Units 03:21 PT 10.3 (9.0-12.0) sec APTT 25.6 (22.0-30.0) sec CBC 11/10/22 Range/Units 03:21 WBC 7.7 (3.8-10.6) k/uL RBC 4.54 (4.30-5.90) m/uL Hgb 13.4 (13.0-17.5) gm/dL Hct 41.7 (39.0-53.0) % Plt Count 276 (150-450) k/uL Comprehensive Metabolic Panel 11/10/22 Range/Units 03:21 Sodium 137 (137-145) mmol/L Potassium 5.3 H (3.5-5.1) mmol/L Chloride 106 (98-107) mmol/L Carbon Dioxide 21 L (22-30) mmol/L BUN 46 H (9-20) mg/dL Creatinine 1.30 H (0.66-1.25) mg/dL Glucose 212 H (74-99) mg/dL Calcium 9.6 (8.4-10.2) mg/dL AST 30 (17-59) U/L ALT 20 (4-49) U/L Alkaline Phosphatase 59 (38-126) U/L Total Protein 7.7 (6.3-8.2) g/dL Albumin 4.1 (3.5-5.0) g/dL Current Medications Generic Name Dose Route Start Last Admin Trade Name Freq PRN Reason Stop Dose Admin Naloxone HCl 0.2 mg 11/10/22 04:46 Naloxone 0.4 Mg/Ml 1 Ml Vial IV Q2M PRN Opioid Reversal Intake and Output 11/09/22 11/10/22 11/10/22 22:59 06:59 14:59 Other: Weight 127.006 kg 11/10/22 03:21 11/10/22 03:21
[2022-11-10] MEDS: HEPARIN SODIUM 1,000 UN/ML (10ML VL) IVP ONE ×2 (12:35→13:00)
[2022-11-10] MEDS ORDERED: CLOPIDOGREL 75 MG TAB PO ONE (12:49)
[2022-11-10] MEDS ORDERED: ATROPINE SULFATE 0.1 MG/ML 10ML SYRINGE IV PRN (12:56)
[2022-11-10] MEDS ORDERED: MAG HYDROX/AL HYDROX/SIMETH 30 ML CUP PO PRN (12:56)
[2022-11-10] MEDS ORDERED: ZOLPIDEM 5 MG TAB PO PRN (12:56)
[2022-11-10] MEDS ORDERED: RX INFO: IV CONTRAST WAS GIVEN 1 EACH MISC MISCELLANE PRN (12:56)
[2022-11-10] MEDS ORDERED: SODIUM CHLORIDE 0.9% 1,000 ML in EMPTY BAG 1 BAG IV SCH (13:00)
[2022-11-10] MEDS ORDERED: IOPAMIDOL-370 100ML BTL INJ ONE (13:01)
--- NOTE | 2022-11-10 13:02 | P.PCN ---
Date of Procedure: 11/10/22 Operative Findings: PERCUTANEOUS CORONARY INTERVENTION Performing physician Ramin Yung M.D. Procedure Performed: 1. Successful stenting of the SVG to RCA using 3.5 x 15 mm Xience drug-eluting stent with an excellent angiographic results and with adjunctive use of IVUS 2. Selective right common femoral artery angiogram Indication: Chest discomfort in this 70-year-old gentleman who is known to have CAD who underwent a heart catheterization by Dr. Sarmiento and was found to have critical in-stent restenosis of the SVG to RCA. For details of the heart catheterization are on Dr. Sarmiento's report Approach: Right common femoral artery Complications: None Level of Sedation: Moderate with a sedation length of 26 minutes Procedure Discussion: Anticoagulation was initiated using heparin with continuous ACT monitoring. Subsequently I did engage the SVG to RCA using JR4 guide. It was wired using a run-through wire. Balloon angioplasty was performed using 3.0 mm balloon. After that intravascular ultrasound was performed and showed a diameter around 4 mm. I did deploy a 3.5 x 15 m stent where the stent was positioned under fluoroscopy guidance and deployed under 18 felice for 20 seconds. The following angiogram showed good angiographic results and the procedure was completed was no complication. Postprocedure Management: 1. Dual antiplatelet therapy 2. Aggressive cholesterol control 3. Follow-up with the patient
[2022-11-10] MEDS ORDERED: ACETAMINOPHEN TAB 325 MG TAB PO PRN (14:08)
[2022-11-10] MEDS ORDERED: CYCLOBENZAPRINE 5 MG TAB PO PRN (14:09)
[2022-11-10 14:10] VITALS: BMI 39.0
--- NOTE | 2022-11-10 19:41 | P.HPIM ---
History of Present Illness H&P Date: 11/10/22 Chief Complaint: Chest pain History of presenting complaint: This is a very pleasant [address] Palomares. Chronic stable medical conditions include coronary artery disease with stents, COPD, diabetes, hypertension, hyperlipidemia, osteoarthritis obesity. has known carotid artery disease. 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 In May 2022 underwent successful stenting of SVG to RCA. By Dr. Yung. Patient presents now with left-sided chest pain. Going to the back. Symptoms have been coming on last couple of days. Hepatitic nitroglycerin at home. He was taken off Plavix in August for pending lower back surgery. No shortness of breath. Review of systems: GEN.: tired EYES: None HEENT: As above NECK: None RESPIRATORY: None CARDIOVASCULAR: As above GASTROINTESTINAL: None GENITOURINARY: None MUSCULOSKELETAL: Back pain LYMPHATICS: None HEMATOLOGICAL: None PSYCHIATRY: None NEUROLOGICAL: As above Past medical history include: Coronary artery disease with stent, COPD, diabetes, hyperlipidemia, hypertension, osteoarthritis, sciatica, carotid arteries be monitored. Lower back pain Social history: Patient smoked a pack a day for 30 years stopped 97. No alcohol. . 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 Conjunctiva normal. HEENT: External appearance of nose and ears normal, oral cavity grossly normal. NECK: JVD not raised; masses not palpable. HEART: First and second heart sounds are normal; no edema. LUNGS:[ Respiratory rate normal; decreased breath sounds. ABDOMEN: Soft, nontender, liver spleen not palpable, no masses palpable. PSYCH: Alert and oriented x3; mood and affect normal. NEUROLOGICAL: Cranial nerves grossly intact; no facial asymmetry, power and sensation grossly intact. INVESTIGATIONS, reviewed in the clinical context: White count 7.7 hemoglobin 13.4 platelets 276 potassium 5.3. 46 creatinine 1.30 Troponin I 0.027 EKG tracing personally reviewed by me-no sensory loss. Nonspecific ST-T wave changes. Assessment and plan: - unstable angina, the patient with known CAD -Cardiac catheterization with stenting of SVG to RCA Aspirin Plavix -Chronic congestive heart failure from ischemic heart disease. Systolic dysfunction. EF 35% -IV heparin monitoring Follow PTT -GERD Pepcid -Significant carotid artery artery stenosis close to 90% on the right side Follows with vascular outpatient -obesity BMI 39.1 Weight loss measures -Coronary artery disease with a prior history of stent -COPD in an ex-smoker Albuterol when necessary -Diabetes mellitus type 2 chronically on insulin, Levemir 80 units subcu hs. sliding scale with Accu-Cheks -Hyperlipidemia, Lopid -Essential hypertension Lopressor. -Primary osteoarthritis/lower back pain- Pending surgery outpatient -Full code Past Medical History Past Medical History: Coronary Artery Disease (CAD), Chest Pain / Angina, COPD, Diabetes Mellitus, Hyperlipidemia, Hypertension, Myocardial Infarction ([place]), Osteoarthritis (OA) Additional Past Medical History / Comment(s): past hx of COPD, vertigo Last Myocardial Infarction Date:: 2012 History of Any Multi-Drug Resistant Organisms: None Reported Past Surgical History: Appendectomy, Heart Catheterization, Heart Catheterization With Stent Additional Past Surgical History / Comment(s): srinivasa carotid Endarterectomy, card iac stents x2, QUAD CABG 2016. HEMORRHOIDECTOMY Past Anesthesia/Blood Transfusion Reactions: No Reported Reaction Date of Last Stent Placement:: 2012 Past Psychological History: No Psychological Hx Reported Smoking Status: Former smoker Past Alcohol Use History: None Reported Past Drug Use History: None Reported - Past Family History Father Family Medical History: Coronary Artery Disease (CAD) Mother Family Medical History: Cancer, Renal Disease Brother(s) Family Medical History: Cancer Sister(s) Family Medical History: No Reported History Son(s) Family Medical History: Cancer (patient has biological son and a stepson his biological son had thyroid cancer.) Medications and Allergies Home Medications Medication Instructions Recorded Confirmed Type gemfibroziL [Lopid] 600 mg PO AC-BID 11/27/20 11/10/22 History Insulin Degludec [Tresiba 100 units SQ HS 05/28/22 11/10/22 History Flextouch U-200 Pen] Semaglutide [Ozempic] 0.5 mg SQ TU 05/28/22 11/10/22 History lisinopriL [Zestril] 40 mg PO DAILY 05/28/22 11/10/22 History Aspirin 81 mg PO DAILY #90 tab 06/02/22 11/10/22 Rx Furosemide [Lasix] 20 mg PO DAILY #60 tab 06/02/22 11/10/22 Rx Metoprolol Succinate (ER) [Toprol 25 mg PO DAILY #90 tab 06/02/22 11/10/22 Rx XL] Nitroglycerin Sl Tabs [Nitrostat] 0.4 mg SL Q5M PRN 11/10/22 11/10/22 History Allergies Allergy/AdvReac Type Severity Reaction Status Date / Time Penicillins Allergy Unknown Verified 11/10/22 06:56 Childhood Sulfa (Sulfonamide Allergy Rash/Hives Verified 11/10/22 06:56 Antibiotics) tetracycline Allergy Rash/Hives Verified 11/10/22 06:56 Physical Exam Vitals: Vital Signs Temp Pulse Pulse Resp BP Pulse Ox 11/10/22 09:32 73 18 128/60 96 11/10/22 06:09 98.3 F 81 16 167/86 96 11/10/22 03:21 80 11/10/22 02:58 98 F 91 18 162/93 98 Intake and Output 11/09/22 11/10/22 11/10/22 22:59 06:59 14:59 Other: Weight 127.006 kg Results CBC & Chem 7: 11/10/22 03:21 11/10/22 03:21 Labs: Abnormal Lab Results - Last 24 Hours (Table) 11/10/22 Range/Units 03:21 Potassium 5.3 H (3.5-5.1) mmol/L Carbon Dioxide 21 L (22-30) mmol/L BUN 46 H (9-20) mg/dL Creatinine 1.30 H (0.66-1.25) mg/dL Glucose 212 H (74-99) mg/dL
[2022-11-10 20:50] LABS: Glucose,Whole Blood 230 mg/dL (70-110)
[2022-11-10] MEDS ORDERED: INSULIN DETEMIR (LEVEMIR) 100 UNIT/ML SYR SQ SCH (21:00)
--- NOTE | 2022-11-10 22:35 | CC ---
CARDIAC CATHETERIZATION REPORT INDICATIONS: Unstable angina. PROCEDURE NOTE: After obtaining informed consent, left heart catheterization, coronary angiogram and selective injection of the bypass grafts have been performed via the right femoral artery using standard Coty catheters the patient tolerated the procedure well without any obvious immediate complications. The patient received moderate conscious sedation. Total sedation time was 31 minutes. FINDINGS: 1. Hemodynamics: Left ventricular end-diastolic pressure 16 mm, there is no significant gradient across the aortic valve. 2. Left Ventriculogram: Left ventriculogram is not performed. 3. Angiographic Data: a.[place] coronary artery, left main coronary artery is a normal-sized vessel it is free of stenosis. Divides into left anterior descending coronary artery and circumflex coronary artery. Circumflex coronary artery is a small nondominant vessel that appears totally occluded distally. The LAD appears totally occluded in its midportion with some competitive flow. Right coronary artery is occluded in the midportion. 4. Selective injection of the bypass grafts. a. DAY to LAD is patent and free of stenosis. 5. Venous graft to diagonal is patent and free, just shows mild nonobstructive disease proximally. 6. Venous graft to the right coronary artery. There is a focal 95% stenosis that involves the same area that was stented last time. PLAN: The patient will undergo angioplasty with stent placement of the venous graft to the right coronary artery. I am waiting for Dr. Yung, the on-call sales promotion representative to review the angiographic data. The patient is stable and is free of symptoms at this time. MMODL / IJN: [id number] /
--- NOTE | 2022-11-10 22:44 | LTR ---
Dear : I performed cardiac catheterization on Blas Heredia. Detailed catheterization note event was directed. In brief, the angiographic data revealed a focal stenosis involving the venous graft to the right coronary artery and we will attempt another angioplasty of the same. Thank you for giving us the privilege to participate in this pleasant gentleman. MMLARON / TIEN: [id number] /
[2022-11-11 05:57] LABS: Glucose,Whole Blood 192 mg/dL (70-110)
[2022-11-11] MEDS ORDERED: ASPIRIN 81 MG PO SCH (09:00)
[2022-11-11] MEDS ORDERED: FENOFIBRATE 160 MG TAB PO SCH (09:00)
[2022-11-11] MEDS ORDERED: ATORVASTATIN 40 MG TAB PO SCH (09:00)
[2022-11-11] MEDS ORDERED: CLOPIDOGREL 75 MG TAB PO SCH (09:00)
[2022-11-11] MEDS: METOPROLOL SUCCINATE (ER) 25 MG TAB.ER.24H PO SCH (11:05)
[2022-11-11] MEDS: lisinopriL 20 MG TAB PO SCH (11:05)
[2022-11-11] MEDS: NITROGLYCERIN OINT 1 INCH/GM PACKET TOPICAL SCH (11:20)
--- NOTE | 2022-11-11 11:35 | P.PN ---
Subjective Progress Note Date: 11/11/22 HISTORY OF PRESENT ILLNESS: This is a 72-year-old male patient of Dr. Sarmiento with a past medical history significant for coronary artery disease with previous 4V CABG in 2016 and PCI of venous graft to the RCA in May 2022, hypertension, hyperlipidemia, carotid artery stenosis, and diabetes, COPD, remote history of tobacco use with 45 pack years, quit 20 years ago. We have been asked to see the patient in consultation for chest pain. Patient states that he developed chest pain while he was sleeping and woke him up and it was similar to that when he required stent placement in May. Patient is not normally active. He is scheduled to see a back surgeon today. He denies any edema, dizziness, palpitations. He does have episode of PND last evening but not normal for him. He states he had 2 more episodes of chest pain last evening around 9:30 and again at 2 in the morning. He states that he was taken off Plavix in August. * EKG reveals sinus rhythm. * Chest xray left lower lobe interstitial infiltrates and atelectasis similar to old exam * Laboratory data: CBC normal. INR 1. Sodium 137, potassium 5.3, BUN 46 creatinine 1.3. Glucose 212. Liver function tests are normal. Magnesium 1.9. Troponin 0.027 * Current home cardiac medications include aspirin 81 mg daily, Lasix 20 mg daily, lisinopril 20 mg daily, Toprol-XL 25 mg daily, nitroglycerin sublingual * Most recent echocardiogram obtained in May 2022 revealed normal left ventricular dimensions and systolic function 11/11/2022 Patient examined this morning at the bedside. Patient is status post cardiac catheterization with PCI of the SVG to RCA. Patient denies any further episodes of chest pain or pressure. He denies shortness of breath. Vital signs are stable. PHYSICAL EXAM: VITAL SIGNS: Reviewed. GENERAL: Well-developed in no acute distress. NECK: Supple. No JVD or thyromegaly LUNGS: Respirations even and unlabored. Lungs essentially clear to auscultation bilaterally. HEART: Regular rate and rhythm. S1 and S2 heard. EXTREMITIES: Normal range of motion. No clubbing or cyanosis. Peripheral pulses intact. No lower extremity edema ASSESSMENT: Unstable angina, status post cardiac catheterization with PCI of SVG to RCA Coronary artery disease with previous PCI and CABG Hypertension Hyperlipidemia Hyperkalemia Carotid artery stenosis Diabetes COPD PLAN: Continue dual antiplatelet therapy with aspirin and Plavix Continue additional cardiac medications Patient may be discharged home today from a cardiac standpoint Nurse practitioner note has been reviewed by physician. Signing provider agrees with the documented findings, assessment, and plan of care. Objective - Vital Signs Vital signs: Vital Signs Temp 98.2 F 11/11/22 07:49 Pulse 76 11/11/22 10:40 Resp 16 11/11/22 08:49 BP 116/64 11/11/22 10:40 Pulse Ox 91 L 11/11/22 10:40 FiO2 Intake & Output 11/10/22 11/11/22 11/11/22 18:59 06:59 18:59 Intake Total 230 118 Output Total 700 275 Balance -470 -275 118 Weight 127.006 kg Intake: IV 50 Oral 180 118 Output: Urine 700 275 Other: Voiding Method Urinal Urinal Toilet Urinal # Voids 1 1 1 # Bowel Movements 1 - Labs CBC & Chem 7: 11/10/22 03:21 11/11/22 07:47 Labs: Abnormal Lab Results - Last 24 Hours (Table) 11/10/22 11/11/22 Range/Units 20:49 05:55 POC Glucose (mg/dL) 230 H 192 H (70-110) mg/dL
[2022-11-11 11:47] LABS: Glucose,Whole Blood 197 mg/dL (70-110)
[2022-11-11 11:49] VITALS: BP 160/81; PULSE 74; RESP 20; TEMP 98.3
[2022-11-11 12:11] LABS: Calcium 9.8 mg/dL (8.4-10.2)
--- NOTE | 2022-11-11 19:55 | P.DS ---
Providers Date of admission: 11/10/22 04:47 Expected date of discharge: 11/11/22 Attending physician: Xu Hoang Consults: 11/10/22 04:46 Consult Physician Routine Consulting Provider: [facility] Consult Reason/Comments: Chest pain, r/o ACS Do you want consulting provider notified?: Yes, Notify in am 11/10/22 12:56 Consult Physician Routine Consulting Provider: [facility] Consult Reason/Comments: Post Interventional Patient Do you want consulting provider notified?: Already Contacted Primary care physician: David Palomares [facility] Course: Chief Complaint: Chest pain History of presenting complaint: This is a very pleasant [address] Palomares. Chronic stable medical conditions include coronary artery disease with stents, COPD, diabetes, hypertension, hyperlipidemia, osteoarthritis obesity. has known carotid artery disease. 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 In May 2022 underwent successful stenting of SVG to RCA. By Dr. Yung. Patient presents now with left-sided chest pain. Going to the back. Symptoms have been coming on last couple of days. Hepatitic nitroglycerin at home. He was taken off Plavix in August for pending lower back surgery. No shortness of breath. 11/11/2022: Patient underwent successful stenting of the SVG to RCA with a drug- eluting stent yesterday. Doing well this morning. Did ambulate. No guarding symptoms. Cleared by cardiology to go home. Discussed with patient and Past medical history include: Coronary artery disease with stent, COPD, diabetes, hyperlipidemia, hypertension, osteoarthritis, sciatica, carotid arteries be monitored. Lower back pain Social history: Patient smoked a pack a day for 30 years stopped 97. No alcohol. . 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 Conjunctiva normal. HEENT: External appearance of nose and ears normal, oral cavity grossly normal. NECK: JVD not raised; masses not palpable. HEART: First and second heart sounds are normal; no edema. LUNGS:[ Respiratory rate normal; decreased breath sounds. ABDOMEN: Soft, nontender, liver spleen not palpable, no masses palpable. PSYCH: Alert and oriented x3; mood and affect normal. NEUROLOGICAL: Cranial nerves grossly intact; no facial asymmetry, power and sensation grossly intact. INVESTIGATIONS, reviewed in the clinical context: November 11: Creatinine 1.12 White count 7.7 hemoglobin 13.4 platelets 276 potassium 5.3. 46 creatinine 1.30 Troponin I 0.027 EKG tracing personally reviewed by me-no sensory loss. Nonspecific ST-T wave changes. Assessment and plan: - unstable angina, the patient with known CAD -Cardiac catheterization with stenting of SVG to RCA Aspirin Plavix -Chronic congestive heart failure from ischemic heart disease. Systolic dysfunction. 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 sliding scale with Accu-Cheks -Hyperlipidemia, Lopid -Essential hypertension Lopressor. -Primary osteoarthritis/lower back pain- Pending surgery outpatient -Full code Disposition: Home Plan - Discharge Summary Discharge Rx Participant: No New Discharge Prescriptions: New Atorvastatin [Lipitor] 40 mg PO DAILY #90 tab Clopidogrel [Plavix] 75 mg PO DAILY #90 tab Continue gemfibroziL [Lopid] 600 mg PO AC-BID Semaglutide [Ozempic] 0.5 mg SQ TU Nitroglycerin Sl Tabs [Nitrostat] 0.4 mg SL Q5M PRN PRN Reason: Chest Pain lisinopriL [Zestril] 40 mg PO DAILY Insulin Degludec [Tresiba Flextouch U-200 Pen] 100 units SQ HS Aspirin 81 mg PO DAILY #90 tab Furosemide [Lasix] 20 mg PO DAILY #60 tab Metoprolol Succinate (ER) [Toprol XL] 25 mg PO DAILY #90 tab Discharge Medication List gemfibroziL [Lopid] 600 mg PO AC-BID 11/27/20 [History] Insulin Degludec [Tresiba Flextouch U-200 Pen] 100 units SQ HS 05/28/22 [History] Semaglutide [Ozempic] 0.5 mg SQ TU 05/28/22 [History] lisinopriL [Zestril] 40 mg PO DAILY 05/28/22 [History] Aspirin 81 mg PO DAILY #90 tab 06/02/22 [Rx] Furosemide [Lasix] 20 mg PO DAILY #60 tab 06/02/22 [Rx] Metoprolol Succinate (ER) [Toprol XL] 25 mg PO DAILY #90 tab 06/02/22 [Rx] Nitroglycerin Sl Tabs [Nitrostat] 0.4 mg SL Q5M PRN 11/10/22 [History] Atorvastatin [Lipitor] 40 mg PO DAILY #90 tab 11/11/22 [Rx] Clopidogrel [Plavix] 75 mg PO DAILY #90 tab 11/11/22 [Rx] Follow up Appointment(s)/Referral(s): David Palomares MD [Primary Care Provider] - 11/24/22 1:30 pm Tate Sarmiento MD [STAFF PHYSICIAN] - 11/17/22 8:45 am Patient Instructions/Handouts: Heart Catheterization (DC) Discharge Disposition: HOME SELF-CARE
--- NOTE | 2022-11-12 11:25 | CA ---
Transthoracic Echo Report Name: Blas Heredia Age: 72 Gender: M : 1950 Exam Date: 11/11/2022 09:36 Exam Location: [place] [facility] Ht (in): 71 Wt (lb): 280 Ordering Physician: Ewelina Hernandez Attending/Referring Phys: [id number], Mary Counter Weigher Jose Moe RDCS Procedure CPT: Indications: LVF Cardiac Hx: HTN;CAD; Obesity: D.M.; high cholesterol Technical Quality: Poor Contrast 1: Lumason Total Dose (mL): 4 Contrast 2: Total Dose (mL): MEASUREMENTS (Male / Female) Normal Values 2D ECHO LV Diastolic Diameter PLAX 3.8 cm 4.2 - 5.9 / 3.9 - 5.3 cm LV Systolic Diameter PLAX 2.6 cm LV Fractional Shortening PLAX 31.7 % IVS Diastolic Thickness 0.9 cm 0.6 - 1.0 / 0.6 - 0.9 cm IVS Systolic Thickness 1.6 cm LVPW Diastolic Thickness 1.3 cm 0.6 - 1.0 / 0.6 - 0.9 cm LVPW Systolic Thickness 1.5 cm LV Relative Wall Thickness 0.6 LVOT Diameter 2.4 cm LV Diastolic Volume MOD BP 110.8 cm??? 67 - 155 / 56 - 104 cm??? LV Systolic Volume MOD BP 36.2 cm??? 22 - 58 / 19 - 49 cm??? LV Ejection Fraction MOD BP 67.4 % >= 55 % LV Stroke Volume MOD BP 74.6 cm??? LV Diastolic Volume MOD 4C 102.6 cm??? LV Systolic Volume MOD 4C 34.7 cm??? LV Ejection Fraction MOD 4C 66.2 % LV Stroke Volume MOD 4C 67.9 cm??? LV Diastolic Length 4C 8.8 cm LV Systolic Length 4C 7.1 cm LV Diastolic Volume MOD 2C 114.3 cm??? LV Systolic Volume MOD 2C 35.5 cm??? LV Ejection Fraction MOD 2C 68.9 % LV Stroke Volume MOD 2C 78.8 cm??? LV Diastolic Length 2C 8.7 cm LV Systolic Length 2C 6.4 cm Ascending Aorta Diameter 3.0 cm M-MODE Aortic Root Diameter MM 3.6 cm LA Systolic Diameter MM 6.1 cm LA Ao Ratio MM 1.7 AV Cusp Separation MM 2.1 cm DOPPLER AV Peak Velocity 187.1 cm/s AV Peak Gradient 14.0 mmHg LVOT Peak Velocity 147.2 cm/s LVOT Peak Gradient 8.7 mmHg AV Area Cont Eq pk 3.5 cm??? MV Deceleration Hubbard 463.4 cm/s??? Mitral E Point Velocity 105.3 cm/s Mitral A Point Velocity 127.2 cm/s Mitral E to A Ratio 0.8 MV Deceleration Time 227.2 ms MV E' Velocity 6.9 cm/s Mitral E to MV E' Ratio 15.2 TR Peak Velocity 122.4 cm/s TR Peak Gradient 6.0 mmHg Right Ventricular Systolic Press 11.0 mmHg PV Peak Velocity 135.3 cm/s PV Peak Gradient 7.3 mmHg FINDINGS Left Ventricle Left ventricular ejection fraction is estimated at 60-65 %. Asymmetric left ventricular hypertrophy. Grade 1 diastolic dysfunction. Normal basal systolic function. Right Ventricle Normal right ventricular size and function. Right Atrium Normal right atrial size. Left Atrium Mild left atrial dilatation. Mitral Valve Mild thickening/calcification of the anterior mitral valve leaflet. Mild thickening/calcification of the posterior mitral valve leaflet. Mild mitral stenosis. Mild to moderate mitral regurgitation. Aortic Valve Trileaflet aortic valve. Diffuse thickening (sclerosis) of the aortic valve cusps without reduced excursion. Tricuspid Valve Trace to mild tricuspid regurgitation. Pulmonic Valve Structurally normal pulmonic valve. Pericardium Normal pericardium. Minimal pericardial effusion (normal variant). Aorta Normal size aortic root and proximal ascending aorta. CONCLUSIONS Normal LV systolic function. Stage I diastolic dysfunction. Concentric LVH. Thickened anterior and posterior mitral leaflets with mild to moderate mitral regurgitation and mild aortic stenosis Aortic sclerosis with no stenosis or insufficiency Small circumferential pericardial effusion Previewed by: Dr. Ramin Yung MD (Electronically Signed) Final Date: 12 November 2022 11:24
== END 2022-11-11 14:17 | disposition home or self-care (01) ==
LOC: EC 02:56 → 6NMEDSUR 04:47 → 3SCARD 13:08
PROVIDERS: ADMIT Hospitalist; ATTEND Hospitalist
DX: I25.110 Atherosclerotic heart disease of native coronary artery with unstable angina pectoris (principal); Z95.5 Presence of coronary angioplasty implant and graft; I13.0 Hypertensive heart and chronic kidney disease with heart failure and stage 1 through stage 4 chronic kidney disease, or unspecified chronic kidney disease; E11.22 Type 2 diabetes mellitus with diabetic chronic kidney disease; N18.2 Chronic kidney disease, stage 2 (mild); I50.22 Chronic systolic (congestive) heart failure; I65.21 Occlusion and stenosis of right carotid artery; K21.9 Gastro-esophageal reflux disease without esophagitis; E66.9 Obesity, unspecified; Z68.39 Body mass index [BMI] 39.0-39.9, adult; J44.9 Chronic obstructive pulmonary disease, unspecified; M54.30 Sciatica, unspecified side; I25.2 Old myocardial infarction; E78.5 Hyperlipidemia, unspecified; M19.90 Unspecified osteoarthritis, unspecified site; Z87.891 Personal history of nicotine dependence; Z95.1 Presence of aortocoronary bypass graft; Z98.890 Other specified postprocedural states; Z82.49 Family history of ischemic heart disease and other diseases of the circulatory system; Z84.1 Family history of disorders of kidney and ureter; Z80.8 Family history of malignant neoplasm of other organs or systems; Z79.82 Long term (current) use of aspirin; Z79.4 Long term (current) use of insulin; Z79.899 Other long term (current) drug therapy; Z88.1 Allergy status to other antibiotic agents; Z88.0 Allergy status to penicillin; Z88.2 Allergy status to sulfonamides
CPT/HCPCS: 99285; 36415; 94760; 93005; 93459; 80053; 80048; 83735; 84484; 85025; 85610; 85730; 71046; G0378 ×3; C8929; C9604; C1769 ×4; C1894 ×2; C1725; C1753; C1874; J2250; J2001; J3010; J1644; Q9950; Q9967 ×2; 93306

== ENCOUNTER → 2023-01-05 | Day surgery (SDC) | payer MEDICARE ==
[2023-01-01 17:23] VITALS: BMI 37.5
[~2023-01-05] MED LIST changes: +ALPRAZolam 0.25 MG TAB PO PRN; +ALPRAZolam 0.5 MG TAB PO PRN; +ASPIRIN 325 MG TAB PO PRN; -DEXAMETHASONE SOD PHOSPHATE 10 MG/ML 1 ML VIAL IV ONE; +HEPARIN SODIUM,PORCINE 10,000 UNIT in SODIUM CHLORIDE 0.9% 1,000 ML IRRIGATION PRN; +HEPARIN SODIUM,PORCINE 2,500 UNIT in SODIUM CHLORIDE 0.9% 250 ML IRRIGATION PRN; -HYDROmorphone 0.5 MG/0.5 ML SYRINGE IVP PRN; +IOPAMIDOL-250 100ML BTL INTRAARTER ONE; +IOPAMIDOL-250 50ML BTL INTRAARTER ONE; -LACTATED RINGERS 1,000 ML IV SCH; +LIDOCAINE 2% (PF) 20 MG/ML 5 ML VIAL SQ ONE; +MIDAZOLAM 2 MG/2 ML VIAL IV ONE; -MIDAZOLAM 2 MG/2 ML VIAL IV PRN; -ONDANSETRON 4 MG/2 ML VIAL IVP ONE; +SODIUM CHLORIDE 0.9% 1,000 ML in EMPTY BAG 1 BAG IV ONE; +ZOLPIDEM 5 MG TAB PO PRN
[2023-01-05 08:25] LABS: Glucose,Whole Blood 129 mg/dL (70-110)
[2023-01-05 08:27] VITALS: TEMP 98.3
[2023-01-05 08:30] LABS: Basophils % (A) 1 %; Eosinophils # (A) 0.2 k/uL (0-0.7); Eosinophils % (A) 3 %; HCT 44.2 % (39.0-53.0); HGB 13.8 gm/dL (13.0-17.5); Hypochromasia Slight; Lymphocytes # (A) 1.4 k/uL (1.0-4.8); Lymphocytes % (A) 21 %; MCHC 31.3 g/dL (31.0-37.0); MCV 95.9 fL (80.0-100.0); Mean Platelet Volume 7.4; Monocytes # (A) 0.3 k/uL (0-1.0); Monocytes % (A) 4 %; Neutrophils # (A) 4.5 k/uL (1.3-7.7); Neutrophils % (A) 69 %; Platelet Count 299 k/uL (150-450); RBC 4.62 m/uL (4.30-5.90); RDW 15.4 % (11.5-15.5); WBC 6.6 k/uL (3.8-10.6)
[2023-01-05 09:16] LABS: Calcium 9.7 mg/dL (8.4-10.2); Potassium 4.5 mmol/L (3.5-5.1)
--- NOTE | 2023-01-05 10:26 | P.OP ---
Date of Procedure: 01/05/23 Description of Procedure: Preoperative diagnosis: Bilateral lower extremity claudication Mingo classification 3 Postop diagnosis: Same, right external iliac artery stenosis, bilateral SFA occlusion reconstitution at the above-knee popliteal Procedure: Aortogram with bilateral lower extremity runoffs via left radial artery access under ultrasound guidance Surgeon: Mannie Anesthesia: Moderate sedation times 20 minutes Estimated blood loss: 5cc Complications: None Condition: Stable Findings: Aorta: Aorta is patent with atherosclerotic disease throughout but no significant stenosis. Bilateral renal arteries are widely patent Iliacs: Bilateral common iliac arteries with atherosclerotic calcific disease but no significant stenosis. Right external iliac artery demonstrates roughly 60-70% stenosis. Left external iliac with atherosclerotic disease and no significant stenosis. Bilateral internal iliac arteries are patent without significant disease. Femorals: Bilateral common femoral arteries are widely patent without any significant stenosis. Bilateral profundus femoris arteries are widely patent with atherosclerotic disease throughout with no evidence of severe stenosis. Bilateral superficial femoral arteries demonstrated occlusion at the midportion with reconstitution above knee popliteal. Popliteal: Bilateral popliteal arteries are patent with atherosclerotic disease throughout with mild areas of stenosis Tibials: Three-vessel takeoff of the left lower extremity. Multiple collaterals noted in bilateral lower extremities with significant atherosclerotic disease noted throughout. Operative narrative: After written informed consent was obtained the patient all risks benefits competitions were described the patient is brought to the Nursery Nurse and laid in a supine position. The area of the left wrist was prepped and draped in the usual sterile fashion. Local anesthesia with moderate sedation was performed with continuous pulse ox monitoring and EKG monitoring. Utilizing ultrasound the left radial artery was visualized and shown to be patent without any significant plaque. Utilizing a multipurpose needle under ultrasound guidance the artery was accessed. Guidewire was placed followed by 5-Icelandic sheath. 035 Glidewire was then placed into the aorta followed by pigtail catheter. Angiogram was then obtained of the aorta. Catheter was then placed at the bifurcation and lower extremity runoffs were obtained. Once completed all guidewires, catheters and sheaths were removed and pressure was placed for hemostasis. Patient tolerated procedure well was sent to PACU for recovery Plan - Discharge Summary Discharge Rx Participant: Yes New Discharge Prescriptions: No Action gemfibroziL [Lopid] 600 mg PO AC-BID Semaglutide [Ozempic] 0.5 mg SQ TU Nitroglycerin Sl Tabs [Nitrostat] 0.4 mg SL Q5M PRN PRN Reason: Chest Pain Clopidogrel [Plavix] 75 mg PO DAILY #90 tab lisinopriL [Zestril] 40 mg PO DAILY Insulin Degludec [Tresiba Flextouch U-200 Pen] 100 units SQ HS Aspirin 81 mg PO DAILY #90 tab Furosemide [Lasix] 20 mg PO DAILY #60 tab Metoprolol Succinate (ER) [Toprol XL] 25 mg PO DAILY #90 tab Discharge Medication List gemfibroziL [Lopid] 600 mg PO AC-BID 11/27/20 [History] Insulin Degludec [Tresiba Flextouch U-200 Pen] 100 units SQ HS 05/28/22 [History] Semaglutide [Ozempic] 0.5 mg SQ TU 05/28/22 [History] lisinopriL [Zestril] 40 mg PO DAILY 05/28/22 [History] Aspirin 81 mg PO DAILY #90 tab 06/02/22 [Rx] Furosemide [Lasix] 20 mg PO DAILY #60 tab 06/02/22 [Rx] Metoprolol Succinate (ER) [Toprol XL] 25 mg PO DAILY #90 tab 06/02/22 [Rx] Nitroglycerin Sl Tabs [Nitrostat] 0.4 mg SL Q5M PRN 11/10/22 [History] Clopidogrel [Plavix] 75 mg PO DAILY #90 tab 11/11/22 [Rx] Follow up Appointment(s)/Referral(s): Lyle Chand DO [STAFF PHYSICIAN] - 1 Week Patient Instructions/Handouts: Peripheral Vascular Disease (DC), Peripheral Artery Disease (DC), Moderate Sedation (DC) Activity/Diet/Wound Care/Special Instructions: *NO LIFTING, PUSHING, OR PULLING ANYTHING OVER 5 POUNDS FOR 5 DAYS *NO DRIVING FOR 3 DAYS *YOU CAN REMOVE YOUR DRESSING AND SHOWER TOMORROW BUT DO NOT SUBMERSE YOUR PUNCTURE SITE IN WATER FOR A FEW DAYS TO PREVENT INFECTION - SO NO TUB BATHS, POOLS, HOT TUBS, DISHES...ETC *ANY SIGNS OF BLEEDING (HARDNESS, SWELLING, OR EXCESSIVE BRUISING) HOLD DIRECT PRESSURE ON YOUR PUNCTURE SITE AND COME TO THE NEAREST EMERGENCY ROOM TO GET YOUR PUNCTURE SITE LOOKED AT - DO NOT DRIVE YOURSELF! EITHER CALL EMS OR HAVE S OMEONE DRIVE YOU! Discharge Disposition: HOME SELF-CARE
--- NOTE | 2023-01-05 11:05 | IR ---
EXAMINATION TYPE: IR angio abdominal w runoff DATE OF EXAM: 01/05/2023 COMPARISON: NONE HISTORY: Fluoroscopy time. Fluoroscopy was provided to the referring clinician.
[2023-01-05 12:50] VITALS: RESP 16
[2023-01-05 12:55] VITALS: BP 109/55; PULSE 74
== END | disposition home or self-care (01) ==
LOC: CATHCVL 07:48
PROVIDERS: ATTEND Surgery
DX: I73.9 Peripheral vascular disease, unspecified (principal); Z82.49 Family history of ischemic heart disease and other diseases of the circulatory system; Z87.891 Personal history of nicotine dependence; Z98.890 Other specified postprocedural states
CPT/HCPCS: 36200; 75625; 75716; 76937; 80048; 85025; C1769 ×3; C1894; J2250; Q9966 ×2; J2001

== ENCOUNTER 2023-05-10 05:48 | Inpatient (IN) | payer MEDICARE ==
[~2023-05-10 05:48] MED LIST changes: -ALPRAZolam 0.25 MG TAB PO PRN; -ALPRAZolam 0.5 MG TAB PO PRN; -ASPIRIN 325 MG TAB PO PRN; -HEPARIN SODIUM,PORCINE 10,000 UNIT in SODIUM CHLORIDE 0.9% 1,000 ML IRRIGATION PRN; -HEPARIN SODIUM,PORCINE 2,500 UNIT in SODIUM CHLORIDE 0.9% 250 ML IRRIGATION PRN; -IOPAMIDOL-250 100ML BTL INTRAARTER ONE; -IOPAMIDOL-250 50ML BTL INTRAARTER ONE; -LIDOCAINE 2% (PF) 20 MG/ML 5 ML VIAL SQ ONE; -MIDAZOLAM 2 MG/2 ML VIAL IV ONE; -SODIUM CHLORIDE 0.9% 1,000 ML in EMPTY BAG 1 BAG IV ONE; -ZOLPIDEM 5 MG TAB PO PRN; +ceFAZolin 3 GM in SODIUM CHLORIDE 0.9% 100 ML IVPB PRN
[2023-05-10] MEDS ORDERED: ONDANSETRON 4 MG/2 ML VIAL IVP ONE (06:14)
[2023-05-10] MEDS ORDERED: DEXAMETHASONE SOD PHOSPHATE 4 MG/ML 1 ML VIAL IV ONE (06:14)
[2023-05-10] MEDS ORDERED: droPERidol 5 MG/2 ML VIAL IVP ONE (06:14)
[2023-05-10] MEDS ORDERED: LIDOCAINE 1% (10MG/ML) FOR IV START INTRADERMA PRN (06:14)
[2023-05-10] MEDS ORDERED: HYDROmorphone 0.5 MG/0.5 ML SYRINGE IVP PRN (06:14)
[2023-05-10] MEDS: LACTATED RINGERS 1,000 ML IV SCH ×2 (06:55→07:05)
[2023-05-10 07:06] LABS: Glucose,Whole Blood 194 mg/dL (70-110)
[2023-05-10 07:08] LABS: HCT 40.3 % (39.0-53.0); HGB 12.9 gm/dL (13.0-17.5); Hypochromasia Slight; MCHC 31.9 g/dL (31.0-37.0); Mean Platelet Volume 7.6; Platelet Count 299 k/uL (150-450); RBC 4.29 m/uL (4.30-5.90); RDW 15.9 % (11.5-15.5); WBC 7.1 k/uL (3.8-10.6)
[2023-05-10 07:23] LABS: African American GFR (CKD) 65 (>60 ml/min/1.73 sqM); Anion Gap 8 mmol/L; Blood Urea Nitrogen 48 mg/dL (9-20); Calcium 10.2 mg/dL (8.4-10.2); Carbon Dioxide 25 mmol/L (22-30); Chloride 106 mmol/L (98-107); Glucose 193 mg/dL (74-99); Non-African American GFR(CKD) 56 (>60 ml/min/1.73 sqM); Potassium 4.9 mmol/L (3.5-5.1); Sodium 139 mmol/L (137-145)
[2023-05-10] MEDS ORDERED: ePHEDrine 50 MG/ML 1 ML VIAL ONE (07:30)
[2023-05-10] MEDS ORDERED: PROPOFOL 10 MG/ML 20 ML VIAL IV ONE (07:30)
[2023-05-10] MEDS ORDERED: HYDROmorphone (PF) 1 MG/ML ONE (07:30)
[2023-05-10] MEDS ORDERED: LIDOCAINE 2% INJ 20 MG/ML (2 ML VIAL) ONE (07:30)
[2023-05-10] MEDS ORDERED: fentaNYL (PF) 50 MCG/ML 2 ML AMP ONE (07:30)
[2023-05-10] MEDS ORDERED: SUCCINYLCHOLINE CHLORIDE 200 MG/10 ML VIAL IV ONE (07:30)
[2023-05-10] MEDS ORDERED: ROCURONIUM 10 MG/ML (5 ML VIAL) IV ONE (07:30)
[2023-05-10] MEDS ORDERED: GLYCOPYRROLATE 0.2 MG/ML 2 ML VIAL ONE (07:30)
[2023-05-10] MEDS ORDERED: MIDAZOLAM 2 MG/2 ML VIAL ONE (07:30)
[2023-05-10] MEDS ORDERED: HEPARIN SODIUM,PORCINE 10,000 UNIT/ML 1 ML VIAL ONE (07:30)
[2023-05-10] MEDS ORDERED: WATER FOR INJECTION, STERILE 10 ML VIAL IV ONE (07:30)
[2023-05-10] MEDS ORDERED: PHENYLEPHRINE-0.9% NACL SYG 1,000 MCG/10 ML SYRINGE ONE (07:30)
[2023-05-10] MEDS ORDERED: HEPARIN SODIUM,PORCINE 5,000 UNIT/ML 1 ML VIAL ONE (07:30)
[2023-05-10] MEDS ORDERED: NEOSTIGMINE 1 MG/ML 10 ML VIAL ONE (07:30)
[2023-05-10] MEDS ORDERED: GELATIN SPONGE,ABSORB (LARGE) 1 EACH SPONGE TOPICAL ONE (08:30)
[2023-05-10] MEDS ORDERED: THROMBIN (BOVINE) 5,000 UNIT VIAL TOPICAL ONE (08:30)
[2023-05-10] MEDS ORDERED: HEPARIN SODIUM,PORCINE 10,000 UNIT in SODIUM CHLORIDE 0.9% 1,000 ML IRRIGATION ONE (08:31)
[2023-05-10] MEDS ORDERED: DEXTROSE 5%-LACTATED RINGERS 500 ML IV ONE (08:32)
[2023-05-10] MEDS ORDERED: ceFAZolin 4 GM in SODIUM CHLORIDE 0.9% 1,000 ML IRRIGATION ONE (08:33)
[2023-05-10] MEDS ORDERED: NITROGLYCERIN SL TABS 0.4 MG TAB SUBLINGUAL PRN (12:01)
--- NOTE | 2023-05-10 12:01 | P.OP ---
Date of Procedure: 05/10/23 Preoperative Diagnosis: Description of Procedure: Preoperative diagnosis: Lower extremity claudication with left lower extremity rest pain Kirvin 4, left femoral, superficial femoral artery occlusion Postoperative diagnosis: Same Procedure: Left common femoral artery endarterectomy and patch angioplasty with Femoral-tibial artery bypass with Cryovein graft Surgeon: Lyle Chand D.O. residential real estate assistant: Eli Ly D.O. Anesthesia: General Estimated blood loss: 100cc Complications: None Condition: Stable Disposition: Palpable PT pulse, good capillary refill Indication for procedure: 73-year-old gentleman with history of peripheral arterial disease, claudication presented to the office secondary to worsening pain now complaining of severe rest pain. He underwent arterial Doppler which demonstrated severely diminished ABIs bilaterally and underwent arterial Doppler which demonstrated occlusion of the SFA bilaterally with reconstitution above the knee with severe 90% stenosis behind the knee with re-con below the knee popliteal artery. He also has severe calcific disease within the common femoral artery and presents today for femoral endarterectomy with femoral to below knee bypass utilizing a CryoVein due to poor greater saphenous vein bilaterally. Operative narrative: After written and informed consent was obtained from the patient all risks benefits and competitions were described the patient is brought to the operative suite and laid in a supine position. The area of the abdomen, left lower extremity was prepped and draped in usual sterile fashion after appropriate anesthetic was performed per the anesthesiologist. A timeout was performed in normal fashion. Antibiotics were administered prior to incision. A oblique incision was created at the left groin and dissection was carried down to the common femoral artery. The common femoral, superficial femoral and profundus femoris arteries were dissected free in a circumferential manner and controlled with vessel loops. Attention was then placed distally and a transverse incision was created on the medial aspect of the lower leg just below the knee with a 15 blade scalpel. Dissection was then carried down with electrocautery through the fascia to the popliteal artery. Popliteal artery, tibioperoneal trunk was then dissected free in a circumferential manner and controlled with vessel loops. Once controlled attention was then placed to tunneling of the CryoVein which was done in normal fashion. The vein was then brought over to the femoral artery and the artery was clamped both proximally and distally. Arteriotomy was then created with 11 blade scalpel and extended with Pott Upton scissors. Endarterectomy was then performed of the common femoral artery removing large dense plaque extending up to the external iliac artery. Good brisk flow was noted after endarterectomy and a patch angioplasty was then performed with 6-0 Prolene suture and bovine pericardial patch and a running fashion. Once completed proximal distal control was once again obtained and a patch he was created. The vein was then spatulated and an end-to-side anastomosis was then created with 6-0 Prolene suture in a running fashion. Good brisk forward bleeding was noted from the artery. Final sutures were then placed good pulsatile blood flow was noted within the vein bypass. The tibial peroneal trunk was then controlled and arteriotomy was created with 11 blade scalpel and extended with Pott Upton scissors. There was good backbleeding noted. The vein was then spatulated and an end-to-side anastomosis was created with 5-0 Prolene suture in a running fashion. Prior to last sutures being placed backbleeding was once again assessed which was adequate and proximal control was released revealing good pulsatile blood flow. Final sutures were placed and good pulsatile blood flow was noted within the bypass. Doppler signals were then noted distal to the bypass and were multiphasic. The areas were then copiously irrigated with antibiotic solution. The incisions were then closed in a multilayer fashion after hemostasis was assured with Gelfoam and thrombin and the skin was then cleansed and dressings were placed. The patient tolerated procedure well was sent to PACU for recovery.
[2023-05-10] MEDS ORDERED: MORPHINE SULFATE 2 MG/ML SYRINGE IVP PRN (12:02)
[2023-05-10 13:21] LABS: Glucose,Whole Blood 217 mg/dL (70-110)
[2023-05-10] MEDS ORDERED: INSULIN ASPART (NovoLOG) 100 UNIT/ML VIAL SQ ONE (13:52)
[2023-05-10] MEDS: ceFAZolin 3 GM in SODIUM CHLORIDE 0.9% 100 ML IVPB SCH ×2 (16:16→23:43)
[2023-05-10 16:18] LABS: Glucose,Whole Blood 173 mg/dL (70-110)
[2023-05-10] MEDS: SODIUM CHLORIDE 0.9% 1,000 ML IV SCH ×2 (18:09→20:31)
[2023-05-10] MEDS: HYDROcodone/APAP 5-325MG 1 EACH TAB PO PRN (20:30)
[2023-05-10] MEDS: INSULIN DETEMIR (LEVEMIR) 100 UNIT/ML SYR SQ SCH (20:31)
[2023-05-10 20:35] LABS: Glucose,Whole Blood 201 mg/dL (70-110)
[2023-05-11 05:35] LABS: Glucose,Whole Blood 132 mg/dL (70-110)
[2023-05-11] MEDS: SODIUM CHLORIDE 0.9% 1,000 ML IV SCH ×3 (05:55→19:50)
[2023-05-11] MEDS: HYDROcodone/APAP 5-325MG 1 EACH TAB PO PRN ×2 (06:06→14:32)
[2023-05-11] MEDS: FENOFIBRATE 160 MG TAB PO SCH (09:10)
[2023-05-11] MEDS: FUROSEMIDE 20 MG TAB PO SCH (09:10)
[2023-05-11] MEDS: lisinopriL 20 MG TAB PO SCH (09:10)
[2023-05-11] MEDS: METOPROLOL SUCCINATE (ER) 25 MG TAB.ER.24H PO SCH (09:10)
[2023-05-11] MEDS: CLOPIDOGREL 75 MG TAB PO SCH (09:10)
[2023-05-11] MEDS: RIVAROXABAN 2.5 MG TABLET PO SCH ×2 (09:11→23:16)
[2023-05-11 09:37] LABS: HCT 36.9 % (39.0-53.0); HGB 11.6 gm/dL (13.0-17.5); Hypochromasia Slight; MCHC 31.5 g/dL (31.0-37.0); MCV 95.3 fL (80.0-100.0); Mean Platelet Volume 7.8; Platelet Count 262 k/uL (150-450); RBC 3.87 m/uL (4.30-5.90); RDW 15.9 % (11.5-15.5)
[2023-05-11 11:45] LABS: Glucose,Whole Blood 144 mg/dL (70-110)
[2023-05-11] MEDS ORDERED: NON FORMULARY DRUG (Semaglutide [Ozempic] 2 MG/0.75 ML Pen.Injctr) SQ SCH (12:01)
[2023-05-11] MEDS ORDERED: ONDANSETRON 4 MG/2 ML VIAL IVP PRN (12:50)
--- NOTE | 2023-05-11 15:12 | P.PN ---
Subjective Progress Note Date: 05/11/23 Principal diagnosis: Lower extremity claudication with left lower extremity rest pain The patient is seen and examined today as a follow-up. He is postop day #1 for left common femoral artery endarterectomy and patch angioplasty with femoral tibial artery bypass with CryoVein graft. This morning patient states he does have some discomfort but was well controlled with pain medication. He was voiding without difficulty. He had not been up yet as of this morning. Nursing had called and stated that he had some nausea with pain medication, Zofran was ordered. They were instructed to get patient up and ambulate him. Patient reportedly was stating that he had pain and did not want to get up yet. Patient has not been up and ambulating in the hallway yet. Hemoglobin stable at 11.6. Objective - Vital Signs Vital signs: Vital Signs Temp 98.0 F 05/11/23 11:25 Pulse 73 05/11/23 11:25 Resp 18 05/11/23 11:25 BP 120/52 05/11/23 11:25 Pulse Ox 91 L 05/11/23 11:25 FiO2 Intake & Output 05/10/23 05/11/23 05/11/23 18:59 06:59 18:59 Intake Total 2571 480 Output Total 500 1025 Balance 2071 -1025 480 Weight 123.2 kg Intake: IV 2453 Oral 118 480 Output: Urine 400 1025 Estimated Blood Loss 100 Other: Voiding Method Urinal - Exam General appearance: The patient is alert, oriented, appears in no acute distress. HET: Head is normocephalic and atraumatic. Pupils are equal and reactive. Neck: Supple. Heart: Regular. Lungs: Equal expansion, normal respiratory effort. Abdomen: Soft, nontender, nondistended. Extremities: Normal skin color and turgor. Bilateral lower extremities warm to touch. Sensorimotor intact. Left groin with Prevena dressing, left medial lower extremity with dressing clean dry and intact. Bilateral PT and DP Doppler signals present. Neurological: No focal deficits. Strength and sensation are grossly intact. - Labs CBC & Chem 7: 05/11/23 09:22 05/10/23 06:55 Labs: Abnormal Lab Results - Last 24 Hours (Table) 05/10/23 05/10/23 05/11/23 Range/Units 16:16 20:33 05:33 RBC (4.30-5.90) m/uL Hgb (13.0-17.5) gm/dL Hct (39.0-53.0) % RDW (11.5-15.5) % POC Glucose (mg/dL) 173 H 201 H 132 H (70-110) mg/dL 05/11/23 05/11/23 Range/Units 09:22 11:44 RBC 3.87 L (4.30-5.90) m/uL Hgb 11.6 L (13.0-17.5) gm/dL Hct 36.9 L (39.0-53.0) % RDW 15.9 H (11.5-15.5) % POC Glucose (mg/dL) 144 H (70-110) mg/dL Assessment and Plan Assessment: 1. Postop day #1 left common femoral artery endarterectomy and patch angioplasty with femoral tibial artery bypass with CryoVein 2. Lower extremity claudication with left lower extremity rest pain [place] 4 3. Left femoral, SFA artery occlusion Plan: 1. Encourage ambulation 2. Zofran ordered, give with pain medication 3. CBC ordered 4. Continue Plavix 75 mg daily 5. Xarelto 2.5 mg BID 6. Will hold discharge today due to patient's pain and limited ambulation. Anticipate discharge tomorrow with home healthcare services The impression and plan of care has been dictated as directed. I performed a history and examination of this patient, discussed the same with the dictator. I agree with the dictator's note ,documented as a scribe. Any additional findings or plans will be noted.
[2023-05-11 16:18] LABS: Glucose,Whole Blood 199 mg/dL (70-110)
[2023-05-11 19:46] LABS: Glucose,Whole Blood 199 mg/dL (70-110)
[2023-05-11] MEDS: INSULIN DETEMIR (LEVEMIR) 100 UNIT/ML SYR SQ SCH (19:47)
[2023-05-11] MEDS: DOCUSATE 100 MG CAP PO SCH (19:48)
[2023-05-12] MEDS: LACTATED RINGERS 1,000 ML IV SCH (05:00)
[2023-05-12 05:48] LABS: Glucose,Whole Blood 112 mg/dL (70-110)
[2023-05-12 08:28] VITALS: RESP 18
--- NOTE | 2023-05-12 09:31 | P.DS ---
Providers Date of admission: 05/10/23 05:48 Expected date of discharge: 05/12/23 Attending physician: Lyle Chand DO [facility]: 73-year-old gentleman with history of peripheral arterial disease, claudication presented to the office secondary to worsening pain now complaining of severe rest pain. He underwent arterial Doppler which demonstrated severely diminished ABIs bilaterally and underwent aortogram which demonstrated occlusion of the SFA bilaterally with reconstitution above the knee with severe 90% stenosis behind the knee with re-con below the knee popliteal artery. He also has severe calcific disease within the common femoral artery and presents today for femoral endarterectomy with femoral to below knee bypass utilizing a CryoVein due to poor greater saphenous vein bilaterally. He underwent left common femoral artery endarterectomy and patch angioplasty with femoral tibial artery bypass with CryoVein graft. He is postop day #2. He has been up and ambulating around his room and the hallway. Yesterday he did have some increased nausea associated with his pain medication. Today he states nausea is improved. He does have some discomfort however overall pain is about improved since prior to surgery. He is passing gas and tolerating his diet. No bleeding from incision sites. Prevena dressing intact and left groin. Exam General appearance: The patient is alert, oriented, appears in no acute distress. HET: Head is normocephalic and atraumatic. Pupils are equal and reactive. Neck: Supple. Heart: Regular. Lungs: Equal expansion, normal respiratory effort. Abdomen: Soft, nontender, nondistended. Extremities: Normal skin color and turgor. Left lower extremity swelling. Incision to left lower medial aspect well approximated without any bleeding. Left groin with Prevena dressing with good suction. Palpable graft, bilateral PT and DP Doppler signals. Neurological: No focal deficits. Strength and sensation are grossly intact. Assessment: 1. Postop day #2 left common femoral artery endarterectomy and patch angioplasty with femoral tibial artery bypass with CryoVein 2. Lower extremity claudication with left lower extremity rest pain [place] 4 3. Left femoral, SFA artery occlusion Plan: 1. Encourage ambulation 2. Colace added 3. Continue Plavix 75 mg daily 4. Xarelto 2.5 mg BID 5. HALEY hose to left lower extremity. Patient instructed to wear and keep left lower extremity elevated 6. Patient is stable for discharge. Home health care services set up to follow patient. The impression and plan of care has been dictated as directed. I performed a history and examination of this patient, discussed the same with the dictator. I agree with the dictator's note ,documented as a scribe. Any additional findings or plans will be noted. Procedures: Procedure: Left common femoral artery endarterectomy and patch angioplasty with Femoral-tibial artery bypass with Cryovein graft Patient Condition at Discharge: Stable Plan - Discharge Summary Discharge Rx Participant: No New Discharge Prescriptions: New HYDROcodone/APAP 5-325MG [Mclean 5-325] 1 each PO Q4HR PRN 3 Days #18 tab PRN Reason: Pain Scale 8 To 10 Docusate [Colace] 100 mg PO BID #14 capsule Rivaroxaban [Xarelto] 2.5 mg PO BID #60 tab Continue gemfibroziL [Lopid] 600 mg PO AC-BID Nitroglycerin Sl Tabs [Nitrostat] 0.4 mg SL Q5M PRN PRN Reason: Chest Pain Clopidogrel [Plavix] 75 mg PO DAILY #90 tab Furosemide [Lasix] 20 mg PO QAM Metoprolol Succinate (ER) [Toprol XL] 25 mg PO QAM lisinopriL [Zestril] 40 mg PO QAM No Action Semaglutide [Ozempic] 0.5 mg SQ TU Insulin Degludec [Tresiba Flextouch U-200 Pen] 100 units SQ HS Discharge Medication List gemfibroziL [Lopid] 600 mg PO AC-BID 11/27/20 [History] Insulin Degludec [Tresiba Flextouch U-200 Pen] 100 units SQ HS 05/28/22 [History] Semaglutide [Ozempic] 0.5 mg SQ TU 05/28/22 [History] lisinopriL [Zestril] 40 mg PO QAM 05/28/22 [History] Nitroglycerin Sl Tabs [Nitrostat] 0.4 mg SL Q5M PRN 11/10/22 [History] Clopidogrel [Plavix] 75 mg PO DAILY #90 tab 11/11/22 [Rx] Furosemide [Lasix] 20 mg PO QAM 05/07/23 [History] Metoprolol Succinate (ER) [Toprol XL] 25 mg PO QAM 05/07/23 [History] HYDROcodone/APAP 5-325MG [Mclean 5-325] 1 each PO Q4HR PRN 3 Days #18 tab 05/11/23 [Rx] Rivaroxaban [Xarelto] 2.5 mg PO BID #60 tab 05/11/23 [Rx] Docusate [Colace] 100 mg PO BID #14 capsule 05/12/23 [Rx] Follow up Appointment(s)/Referral(s): Lyle Chand DO [STAFF PHYSICIAN] - 2 Weeks Activity/Diet/Wound Care/Special Instructions: No driving until cleared by surgeon No lifting greater than 10 lbs , pushing, pulling, straining, flights of stairs for three days. sponge bathing until 05/17/2023 then may shower, no tub baths or soaking signs of infection ie: fever, rash, drainage from puncture site, swelling con tact doctor or return to ER immediately. Heavy bleeding from incision puncture site apply firm direct pressure and return to ER. Do not attempt to drive self. low sodium/low fat diet Keep Left Preveena dressing in place until 05/17/2023. Then may remove dressing and discard in garbage. Keep HALEY hose compression stocking on left leg. Elevate left leg to help with swelling. Discharge Disposition: HOME WITH HOME HEALTH SERVICES
[2023-05-12] MEDS: DOCUSATE 100 MG CAP PO SCH (11:13)
[2023-05-12] MEDS: FENOFIBRATE 160 MG TAB PO SCH (11:13)
[2023-05-12] MEDS: CLOPIDOGREL 75 MG TAB PO SCH (11:13)
[2023-05-12] MEDS: FUROSEMIDE 20 MG TAB PO SCH (11:14)
[2023-05-12] MEDS: lisinopriL 20 MG TAB PO SCH (11:15)
[2023-05-12] MEDS: METOPROLOL SUCCINATE (ER) 25 MG TAB.ER.24H PO SCH (11:16)
[2023-05-12] MEDS: RIVAROXABAN 2.5 MG TABLET PO SCH (11:16)
[2023-05-12 11:23] LABS: Glucose,Whole Blood 164 mg/dL (70-110)
[2023-05-12 13:17] VITALS: BP 121/64; PULSE 81; TEMP 98.6
== END 2023-05-12 13:24 | disposition home health service (06) | DRG 254 ==
LOC: 2ORMAIN 05:48 → 3SCARD 15:33
PROVIDERS: ADMIT Surgery; ATTEND Surgery
PROC: 04CL0ZZ Extirpation of Matter from Left Femoral Artery, Open Approach (ICD-10-PCS; 2023-05-10)
PROC: 04UL3JZ Supplement Left Femoral Artery with Synthetic Substitute, Percutaneous Approach (ICD-10-PCS; 2023-05-10)
PROC: 04UL07Z Supplement Left Femoral Artery with Autologous Tissue Substitute, Open Approach (ICD-10-PCS; principal; 2023-05-10 07:30)
DX: I70.212 Atherosclerosis of native arteries of extremities with intermittent claudication, left leg (principal); Z79.01 Long term (current) use of anticoagulants; I65.29 Occlusion and stenosis of unspecified carotid artery; Z79.02 Long term (current) use of antithrombotics/antiplatelets; Z88.0 Allergy status to penicillin; Z88.2 Allergy status to sulfonamides; Z87.891 Personal history of nicotine dependence
CPT/HCPCS: 80048; 85027; 86850; 86900; 86901; 88304; 88311

== ENCOUNTER 2023-10-11 08:33 | Day surgery (SDC) | payer MEDICARE ==
[2023-10-08 11:28] VITALS: BMI 38.0
[~2023-10-11 08:33] MED LIST changes: +DEXAMETHASONE SOD PHOSPHATE 4 MG/ML 1 ML VIAL IV ONE; +HYDROmorphone 0.5 MG/0.5 ML SYRINGE IVP PRN; +ONDANSETRON 4 MG/2 ML VIAL IVP ONE; +Pre Op ABX Message 1 EACH MISC MISCELLANE ONE; -ceFAZolin 3 GM in SODIUM CHLORIDE 0.9% 100 ML IVPB PRN
[2023-10-11] MEDS: LACTATED RINGERS 1,000 ML IV SCH (08:58)
[2023-10-11 09:10] VITALS: RESP 16; TEMP 98.2
[2023-10-11 09:15] LABS: Glucose,Whole Blood 218 mg/dL (70-110)
[2023-10-11] MEDS: ONDANSETRON 4 MG/2 ML VIAL IVP ONE (09:24)
[2023-10-11] MEDS: INSULIN ASPART (NovoLOG) 100 UNIT/ML VIAL SQ ONE (09:30)
[2023-10-11] MEDS ORDERED: MIDAZOLAM 2 MG/2 ML VIAL ONE (10:23)
[2023-10-11] MEDS ORDERED: PROPOFOL 10 MG/ML 20 ML VIAL IV ONE (10:23)
[2023-10-11] MEDS ORDERED: KETAMINE HCL IN 0.9 % NACL 50 MG/5 ML SYRINGE ONE (10:23)
[2023-10-11] MEDS ORDERED: fentaNYL (PF) 50 MCG/ML 2 ML AMP ONE (10:23)
--- NOTE | 2023-10-11 10:24 | P.GSHP ---
History of Present Illness H&P Date: 10/11/23 Chief Complaint: right incisional drainage, wound 73 year old male with history of right femoral-tibial bypass presented to the office with continued drainage and swelling of the incision site at the superior aspect. After conservative measures and treatment failed he presents today for excisional debridement and closure of the incision site. He denies any fevers, chills, chest pain or shortness of breath. - Review of Systems All systems: negative (What is mentioned in the past medical history or HPI) Past Medical History Past Medical History: Coronary Artery Disease (CAD), Chest Pain / Angina, COPD, Diabetes Mellitus, Hyperlipidemia, Hypertension, Myocardial Infarction (MD), Osteoarthritis (OA) Additional Past Medical History / Comment(s): Hx vertigo in the past with recent flare up. Last Myocardial Infarction Date:: 2012 History of Any Multi-Drug Resistant Organisms: None Reported Past Surgical History: Appendectomy, Coronary Bypass/CABG, Heart Catheterization, Heart Catheterization With Stent Additional Past Surgical History / Comment(s): Bilateral carotid endarterectomy, quadruple CABG 2016, 3 cardiac stents, hemmorhoidectomy, procedures to veins in legs. Past Anesthesia/Blood Transfusion Reactions: No Reported Reaction Additional Past Anesthesia/Blood Transfusion Reaction / Comment(s): Vertigo. Date of Last Stent Placement:: 10/2022 Past Psychological History: No Psychological Hx Reported Smoking Status: Former smoker Past Alcohol Use History: None Reported Additional Past Alcohol Use History / Comment(s): Quit smoking in 1996, smoked 1ppd for 30 yrs. Past Drug Use History: None Reported - Past Family History Father Family Medical History: Coronary Artery Disease (CAD), Diabetes Mellitus, Myocardial Infarction (MD) Mother Family Medical History: Cancer, Renal Disease Brother(s) Family Medical History: Cancer Sister(s) Family Medical History: Cancer Son(s) Family Medical History: Cancer (patient has biological son and a stepson his biological son had thyroid cancer.) Medications and Allergies Home Medications Medication Instructions Recorded Confirmed Type gemfibroziL [Lopid] 600 mg PO AC-BID 11/27/20 10/11/23 History Insulin Degludec [Tresiba 100 units SQ HS 05/28/22 10/11/23 History Flextouch U-200 Pen] Semaglutide [Ozempic] 0.5 mg SQ TU 05/28/22 10/11/23 History lisinopriL [Zestril] 40 mg PO QAM 05/28/22 10/11/23 History Nitroglycerin Sl Tabs [Nitrostat] 0.4 mg SL Q5M PRN 11/10/22 10/11/23 History Clopidogrel [Plavix] 75 mg PO DAILY #90 tab 11/11/22 10/11/23 Rx Furosemide [Lasix] 20 mg PO QAM 05/07/23 10/11/23 History Metoprolol Succinate (ER) [Toprol 25 mg PO QAM 05/07/23 10/11/23 History XL] HYDROcodone/APAP 5-325MG [Kite 1 each PO Q4HR PRN 3 Days #18 tab 05/11/23 10/11/23 Rx 5-325] Docusate [Colace] 100 mg PO BID PRN 10/08/23 10/11/23 History Meclizine (Unknown Dose) 1 tab PO DIRECTED PRN 10/08/23 10/11/23 History Allergies Allergy/AdvReac Type Severity Reaction Status Date / Time Penicillins Allergy Unknown Verified 10/11/23 08:55 Childhood Sulfa (Sulfonamide Allergy Rash/Hives Verified 10/11/23 08:55 Antibiotics) Surgical - Exam Vital Signs Temp Pulse Resp BP Pulse Ox 98.2 F 60 16 158/70 95 10/11/23 09:03 10/11/23 09:03 10/11/23 09:03 10/11/23 09:03 10/11/23 09:03 - General well developed, well nourished, no distress - Eyes PERRL - Neck no masses - Respiratory normal expansion, normal respiratory effort - Cardiovascular Rhythm: regular - Abdomen Abdomen: soft, non tender - Integumentary no rash - Neurologic normal coordination, normal sensation - Musculoskeletal normal gait - Psychiatric oriented to time, oriented to person, oriented to place, speech is normal Palpable pulse in the bypass. Palpable PT pulse. Fibrinous tissue noted at the superior aspect of the incision site with clear drainage noted. Minimal erythema Results - Labs Abnormal Lab Results - Last 24 Hours (Table) 10/11/23 Range/Units 09:14 POC Glucose (mg/dL) 218 H (70-110) mg/dL Assessment and Plan Assessment: Claudication with history of right femoral tibial bypass Incisional dehiscence and wound Plan: To the OR for excisional debridement and closure of the incisional site.
[2023-10-11] MEDS: SODIUM CHLORIDE 0.9% 50 ML with ceFAZolin 2,000 MG IV ONE (10:35)
[2023-10-11] MEDS: ceFAZolin 1,000 MG in SODIUM CHLORIDE 0.9% 1,000 ML IRRIGATION ONE (10:51)
[2023-10-11] MEDS: BACITRACIN ZINC 500 UNIT/GM OINT 28.4 GM TUBE TOPICAL ONE (11:02)
[2023-10-11] MEDS: LACTATED RINGERS 1,000 ML IV ONE (11:07)
[2023-10-11] MEDS: HYDROcodone/APAP 5-325MG 1 EACH TAB PO ONE (11:24)
[2023-10-11] MEDS ORDERED: HYDROcodone/APAP 5-325MG 1 EACH TAB ONE (11:24)
[2023-10-11 12:01] LABS: Glucose,Whole Blood 232 mg/dL (70-110)
[2023-10-11 12:15] VITALS: BP 148/71; PULSE 82
--- NOTE | 2023-10-11 16:19 | P.OP ---
Date of Procedure: 10/11/23 Preoperative Diagnosis: Right femoral tibial bypass incision site dehiscence and wound Postoperative Diagnosis: Same Procedure(s) Performed: Excisional debridement of right femoral tibial bypass incisional wound and closure Anesthesia: MAC Surgeon: Lyle Chand Estimated Blood Loss (ml): 10 Pathology: none sent Condition: stable Disposition: PACU Indications for Procedure: 73 year old gentleman with history of right femoral tibial bypass presents to the hospital for excisional debridement and closure of his incisional wound. He had multiple visits in the office for wound treatment without improvement and continued drainage and therefore presents for debridement, culture and closure. Operative Findings: fibrinous tissue with serous drainage. No purulence. Wound measured 3x2cm down to the fascia 2cm. Description of Procedure: After written and informed consent was obtained and all risks, benefits and complications were discussed the patient was brought to the operative suite and laid in a supine position. The area of the right leg was prepped and draped in the usual sterile fashion. A timeout was performed and all parties agreed. The superior aspect of the lower leg incision was then sharply debrided with a scalpel down to the fascia with removal of fibrinous tissue. There was no purulence and cultures were obtained at that time. Once all fibrin was removed and the areas with serous leaking from the soft tissues were cauterized the incision site was irrigated with antibiotic solution and the skin was closed with simple interrupted 2-0 nylon suture. The area was cleansed and dressings were placed. The patient tolerated the procedure well and was sent to PACU for recovery.
== END 2023-10-11 11:58 | disposition home or self-care (01) ==
LOC: OR 08:33
PROVIDERS: ATTEND Surgery
DX: T81.31XA Disruption of external operation (surgical) wound, not elsewhere classified, initial encounter (principal); I25.10 Atherosclerotic heart disease of native coronary artery without angina pectoris; J44.9 Chronic obstructive pulmonary disease, unspecified; E11.9 Type 2 diabetes mellitus without complications; E78.5 Hyperlipidemia, unspecified; I10 Essential (primary) hypertension; I25.2 Old myocardial infarction; M19.90 Unspecified osteoarthritis, unspecified site; Z90.49 Acquired absence of other specified parts of digestive tract; Z95.5 Presence of coronary angioplasty implant and graft; Z95.1 Presence of aortocoronary bypass graft; Z98.890 Other specified postprocedural states; Z87.891 Personal history of nicotine dependence; Z82.49 Family history of ischemic heart disease and other diseases of the circulatory system; Z83.3 Family history of diabetes mellitus; Z80.8 Family history of malignant neoplasm of other organs or systems; Z79.51 Long term (current) use of inhaled steroids; Z79.02 Long term (current) use of antithrombotics/antiplatelets; Z79.84 Long term (current) use of oral hypoglycemic drugs; Z79.4 Long term (current) use of insulin; Z79.899 Other long term (current) drug therapy; Z88.0 Allergy status to penicillin; Z88.1 Allergy status to other antibiotic agents; Z88.2 Allergy status to sulfonamides
CPT/HCPCS: 87070; 87205; 87075; 11044; J2250; J2405; J0690; J3010; J2704

== ENCOUNTER 2024-01-20 11:30 | Emergency (ER) | payer MEDICARE ==
[2024-01-20] MEDS: SODIUM CHLORIDE 0.9% 1,000 ML IV STA (12:19)
[2024-01-20 12:26] LABS: Appearance,Urine Clear (Clear); Basophils # (A) 0.1 k/uL (0-0.2); Basophils % (A) 1 %; Bilirubin,Urine Negative (Negative); Blood,Urine Negative (Negative); Color,Urine Colorless; Eosinophils # (A) 0.2 k/uL (0-0.7); Eosinophils % (A) 3 %; Glucose,Urine (UA) Negative (Negative); HCT 44.8 % (39.0-53.0); HGB 13.3 gm/dL (13.0-17.5); Hypochromasia Moderate; Ketones,Urine Negative (Negative); Leukocyte Esterase,Urine Negative (Negative); Lymphocytes # (A) 1.4 k/uL (1.0-4.8); Lymphocytes % (A) 22 %; MCH 27.7 pg (25.0-35.0); MCHC 29.7 g/dL (31.0-37.0); MCV 93.3 fL (80.0-100.0); Mean Platelet Volume 7.5; Monocytes # (A) 0.3 k/uL (0-1.0); Monocytes % (A) 5 %; Neutrophils # (A) 4.3 k/uL (1.3-7.7); Neutrophils % (A) 68 %; Nitrite,Urine Negative (Negative); PH, Urine 5.5 (5.0-8.0); Platelet Count 354 k/uL (150-450); Protein,Urine Negative (Negative); Specific Gravity,Urine 1.017 (1.001-1.035); Urobilinogen,Urine <2.0 mg/dL (<2.0); WBC 6.4 k/uL (3.8-10.6)
[2024-01-20] MEDS: KETOROLAC 15 MG/ML 1 ML VIAL IVP STA (12:29)
[2024-01-20] MEDS: MORPHINE SULFATE 2 MG/ML SYRINGE IVP STA (12:32)
[2024-01-20 12:38] LABS: ALT 14 U/L (4-49); AST 18 U/L (17-59); African American GFR (CKD) >90 (>60 ml/min/1.73 sqM); Albumin 4.1 g/dL (3.5-5.0); Alkaline Phosphatase 91 U/L (38-126); Amylase 62 U/L (30-110); Anion Gap 7 mmol/L; Blood Urea Nitrogen 26 mg/dL (9-20); Calcium 10.2 mg/dL (8.4-10.2); Carbon Dioxide 27 mmol/L (22-30); Chloride 108 mmol/L (98-107); Glucose 129 mg/dL (74-99); Lipase 217 U/L (23-300); Non-African American GFR(CKD) 83 (>60 ml/min/1.73 sqM); Potassium 5.2 mmol/L (3.5-5.1); Sodium 142 mmol/L (137-145); Total Bilirubin 0.5 mg/dL (0.2-1.3); Total Protein 7.3 g/dL (6.3-8.2)
--- NOTE | 2024-01-20 12:56 | ED ---
Back Pain HPI - General Chief Complaint: Back Pain/Injury Stated Complaint: R Back Pain Time Seen by Provider: 01/20/24 11:49 Source: patient, RN notes reviewed Mode of arrival: ambulatory Limitations: no limitations - History of Present Illness Initial Comments: This is a 73-year-old male who presents to the emergency department for back pain. Patient reports right mid back pain for the last month. States that this week and got worse. He does report some burning with urination. Pain does not radiate into the abdomen or elsewhere. States the last time he had pain like this was when he had a kidney stone a few years ago. Denies any chest pain or shortness of breath. Also denies any fevers or chills. Denies any injuries. Also denies any loss of bowel/bladder control or saddle anesthesia. MD Complaint: back pain - Related Data Home Medications Medication Instructions Recorded Confirmed gemfibroziL [Lopid] 600 mg PO AC-BID 11/27/20 10/11/23 Insulin Degludec [Tresiba 100 units SQ HS 05/28/22 10/11/23 Flextouch U-200 Pen] Semaglutide [Ozempic] 0.5 mg SQ TU 05/28/22 10/11/23 lisinopriL [Zestril] 40 mg PO QAM 05/28/22 10/11/23 Nitroglycerin Sl Tabs [Nitrostat] 0.4 mg SL Q5M PRN 11/10/22 10/11/23 Furosemide [Lasix] 20 mg PO QAM 05/07/23 10/11/23 Metoprolol Succinate (ER) [Toprol 25 mg PO QAM 05/07/23 10/11/23 XL] Docusate [Colace] 100 mg PO BID PRN 10/08/23 10/11/23 Meclizine (Unknown Dose) 1 tab PO DIRECTED PRN 10/08/23 10/11/23 Previous Rx's Medication Instructions Recorded Clopidogrel [Plavix] 75 mg PO DAILY #90 tab 11/11/22 HYDROcodone/APAP 5-325MG [[place] 1 each PO Q4HR PRN 3 Days #18 tab 05/11/23 5-325] Lidocaine 5% Patch [Lidoderm 5% 1 patch TOPICAL DAILY PRN #30 patch 01/20/24 Patch] Meloxicam [Mobic] 15 mg PO DAILY PRN #30 tab 01/20/24 methocarbamoL [Robaxin-750] 1,500 mg PO TID PRN #30 tab 01/20/24 Allergies Allergy/AdvReac Type Severity Reaction Status Date / Time Penicillins Allergy Unknown Verified 01/20/24 11:38 Childhood Sulfa (Sulfonamide Allergy Rash/Hives Verified 01/20/24 11:38 Antibiotics) Review of Systems ROS Statement: Those systems with pertinent positive or pertinent negative responses have been documented in the HPI. ROS Other: All systems not noted in ROS Statement are negative. Past Medical History Past Medical History: Coronary Artery Disease (CAD), Chest Pain / Angina, COPD, Diabetes Mellitus, Hyperlipidemia, Hypertension, Myocardial Infarction (NH), Osteoarthritis (OA) Additional Past Medical History / Comment(s): Hx vertigo in the past with recent flare up. Last Myocardial Infarction Date:: 2012 History of Any Multi-Drug Resistant Organisms: None Reported Past Surgical History: Appendectomy, Coronary Bypass/CABG, Heart Catheterization, Heart Catheterization With Stent Additional Past Surgical History / Comment(s): Bilateral carotid endarterectomy, quadruple CABG 2016, 3 cardiac stents, hemmorhoidectomy, procedures to veins in legs. Past Anesthesia/Blood Transfusion Reactions: No Reported Reaction Additional Past Anesthesia/Blood Transfusion Reaction / Comment(s): Vertigo. Date of Last Stent Placement:: 10/2022 Past Psychological History: No Psychological Hx Reported Smoking Status: Former smoker Past Alcohol Use History: None Reported Past Drug Use History: None Reported - Past Family History Father Family Medical History: Coronary Artery Disease (CAD), Diabetes Mellitus, Myocardial Infarction (NH) Mother Family Medical History: Cancer, Renal Disease Brother(s) Family Medical History: Cancer Sister(s) Family Medical History: Cancer Son(s) Family Medical History: Cancer (patient has biological son and a stepson his biological son had thyroid cancer.) General Exam Limitations: no limitations General appearance: alert, in no apparent distress Head exam: Present: atraumatic, normocephalic, normal inspection Respiratory exam: Present: normal lung sounds bilaterally. Absent: respiratory distress, wheezes, rales, rhonchi, stridor Cardiovascular Exam: Present: regular rate, normal rhythm, normal heart sounds. Absent: systolic murmur, diastolic murmur, rubs, gallop, clicks GI/Abdominal exam: Present: soft, tenderness (RUQ), normal bowel sounds. Absent: distended, guarding, rebound, rigid Back exam: Present: CVA tenderness (R). Absent: CVA tenderness (L) Neurological exam: Present: alert, oriented X3, CN II-XII intact Psychiatric exam: Present: normal affect, normal mood Skin exam: Present: warm, dry, intact, normal color. Absent: rash Course Vital Signs 01/20/24 01/20/24 01/20/24 11:37 13:49 15:51 Temperature 98.7 F 98 F 97.9 F Pulse Rate 72 63 65 Respiratory 16 18 18 Rate Blood Pressure 175/79 137/77 184/75 O2 Sat by Pulse 94 L 96 96 Oximetry Medical Decision Making - Medical Decision Making This is a 73 year old male who presents to the emergency department for back pain. Was pt. sent in by a medical professional or institution? @ -No Did you speak to anyone other than the patient for history? @ -No Did you review nursing and triage notes? @ -Yes, and I agree, it is accurate with regards to the patient's symptoms. Were old charts reviewed? @ -No Differential Diagnosis? @ -Differential Back Pain: Strain, zoster, cauda equina syndrome, epidural abscess, vertebral osteomyelitis, discitis, fracture, subluxation, disc herniation, DJD, spinal stenosis, dissection, AAA, pancreatitis, peptic ulcer disease, pyelonephritis, kidney stone, this is not meant to be an all-inclusive list. EKG interpreted by me (3pts min.)? @ -Not obtained X-rays interpreted by me (1pt min.)? @ -Not obtained CT interpreted by me (1pt min.)? @ -CT scan of the abdomen and pelvis obtained. My interpretation identifies no evidence of ureteral calculus. CTA of the chest obtained. My interpretation identifies no evidence of a pulmonary embolus. U/S interpreted by me (1pt. min.)? @ -Not obtained What testing was considered but not performed? (CT, X-rays, U/S, labs)? Why? @ -None What meds were considered but not given? Why? @ -None Did you discuss the management of the patient with other professionals? @ -No Did you reconcile home meds? @ -No Was smoking cessation discussed for >3mins.? @ -No Was critical care preformed (if so, how long)? @ -No Were there social determinants of health that impacted care today? How? (Homelessness, low income, unemployed, alcoholism, drug addiction, transportation, low edu. Level, literacy, decrease access to med. care, assisted, rehab)? @ -No Was there de-escalation of care discussed even if they declined? (Discuss DNR or withdrawal of care, Hospice)? @ -No What co-morbidities impacted this encounter? (DM, HTN, Smoking, COPD, CAD, Cancer, CVA, Hep., AIDS, mental health diagnosis, sleep apnea, morbid obesity)? @ -CAD, HLD, HTN, DM Was patient admitted / discharged? @ -Discharged. Lab work demonstrates an elevated D-dimer of 1.60 and signs of dehydration. Urinalysis negative for signs of infection. CT scan of the abdomen pelvis demonstrates diverticulosis without acute diverticulitis. There is a nonobstructing left renal stone, gallstones, and signs of chronic pancreatitis. CTA of the chest demonstrates no signs of a pulmonary embolus or other acute process. Discussed with the patient the possibility of symptoms being related to gallstones or being musculoskeletal in nature. His symptoms were well-controlled in the emergency department. Prescription for Mobic, Robaxin, and lidocaine patches provided with dosing instructions reviewed. Information for general surgery follow-up provided regarding the gallstones. Patient discharged home in stable condition. Undiagnosed new problem with uncertain prognosis? @ -None Drug Therapy requiring intensive monitoring for toxicity (Heparin, Nitro, Insulin, Cardizem)? @ -None Were any procedures done? @ -None Diagnosis/symptom? @ -Back pain, gallstones Acute, or Chronic, or Acute on Chronic? @ -Acute Uncomplicated (without systemic symptoms) or Complicated (systemic symptoms)? @ -Uncomplicated Side effects of treatment? @ -None Exacerbation, Progression, or Severe Exacerbation] @ -Not applicable Poses a threat to life or bodily function? @ -No Return precautions reviewed in depth, the patient is instructed to return to the emergency department with any new, worsening, or concerning symptoms. Patient verbalized understanding. This case was discussed in detail with the attending ED physician, Dr. Limon. Presentation, findings, and treatment plan discussed in detail as well. - Lab Data Result diagrams: 01/20/24 12:12 01/20/24 12:12 Lab Results 01/20/24 01/20/24 01/20/24 Range/Units 12:12 12:12 12:12 WBC 6.4 (3.8-10.6) k/uL RBC 4.80 (4.30-5.90) m/uL Hgb 13.3 (13.0-17.5) gm/dL Hct 44.8 (39.0-53.0) % MCV 93.3 (80.0-100.0) fL MCH 27.7 (25.0-35.0) pg MCHC 29.7 L (31.0-37.0) g/dL RDW 16.0 H (11.5-15.5) % Plt Count 354 (150-450) k/uL MPV 7.5 Neutrophils % 68 % Lymphocytes % 22 % Monocytes % 5 % Eosinophils % 3 % Basophils % 1 % Neutrophils # 4.3 (1.3-7.7) k/uL Lymphocytes # 1.4 (1.0-4.8) k/uL Monocytes # 0.3 (0-1.0) k/uL Eosinophils # 0.2 (0-0.7) k/uL Basophils # 0.1 (0-0.2) k/uL Hypochromasia Moderate D-Dimer (<0.60) mg/L FEU Sodium 142 (137-145) mmol/L Potassium 5.2 H (3.5-5.1) mmol/L Chloride 108 H (98-107) mmol/L Carbon Dioxide 27 (22-30) mmol/L Anion Gap 7 mmol/L BUN 26 H (9-20) mg/dL Creatinine 0.91 (0.66-1.25) mg/dL Est GFR (CKD-EPI)AfAm >90 (>60 ml/min/1.73 sqM) Est GFR (CKD-EPI)NonAf 83 (>60 ml/min/1.73 sqM) Glucose 129 H (74-99) mg/dL Plasma Lactic Acid Jose F (0.7-2.0) mmol/L Calcium 10.2 (8.4-10.2) mg/dL Total Bilirubin 0.5 (0.2-1.3) mg/dL AST 18 (17-59) U/L ALT 14 (4-49) U/L Alkaline Phosphatase 91 (38-126) U/L Troponin I (0.000-0.034) ng/mL Total Protein 7.3 (6.3-8.2) g/dL Albumin 4.1 (3.5-5.0) g/dL Amylase 62 (30-110) U/L Lipase 217 (23-300) U/L Urine Color Colorless Urine Appearance Clear (Clear) Urine pH 5.5 (5.0-8.0) Ur Specific [place] 1.017 (1.001-1.035) Urine Protein Negative (Negative) Urine Glucose (UA) Negative (Negative) Urine Ketones Negative (Negative) Urine Blood Negative (Negative) Urine Nitrite Negative (Negative) Urine Bilirubin Negative (Negative) Urine Urobilinogen <2.0 (<2.0) mg/dL Ur Leukocyte Esterase Negative (Negative) 01/20/24 01/20/24 01/20/24 Range/Units 12:12 13:26 13:26 WBC (3.8-10.6) k/uL RBC (4.30-5.90) m/uL Hgb (13.0-17.5) gm/dL Hct (39.0-53.0) % MCV (80.0-100.0) fL MCH (25.0-35.0) pg MCHC (31.0-37.0) g/dL RDW (11.5-15.5) % Plt Count (150-450) k/uL MPV Neutrophils % % Lymphocytes % % Monocytes % % Eosinophils % % Basophils % % Neutrophils # (1.3-7.7) k/uL Lymphocytes # (1.0-4.8) k/uL Monocytes # (0-1.0) k/uL Eosinophils # (0-0.7) k/uL Basophils # (0-0.2) k/uL Hypochromasia D-Dimer 1.60 H (<0.60) mg/L FEU Sodium (137-145) mmol/L Potassium (3.5-5.1) mmol/L Chloride (98-107) mmol/L Carbon Dioxide (22-30) mmol/L Anion Gap mmol/L BUN (9-20) mg/dL Creatinine (0.66-1.25) mg/dL Est GFR (CKD-EPI)AfAm (>60 ml/min/1.73 sqM) Est GFR (CKD-EPI)NonAf (>60 ml/min/1.73 sqM) Glucose (74-99) mg/dL Plasma Lactic Acid Jose F 1.2 (0.7-2.0) mmol/L Calcium (8.4-10.2) mg/dL Total Bilirubin (0.2-1.3) mg/dL AST (17-59) U/L ALT (4-49) U/L Alkaline Phosphatase (38-126) U/L Troponin I 0.014 (0.000-0.034) ng/mL Total Protein (6.3-8.2) g/dL Albumin (3.5-5.0) g/dL Amylase (30-110) U/L Lipase (23-300) U/L Urine Color Urine Appearance (Clear) Urine pH (5.0-8.0) Ur Specific [place] (1.001-1.035) Urine Protein (Negative) Urine Glucose (UA) (Negative) Urine Ketones (Negative) Urine Blood (Negative) Urine Nitrite (Negative) Urine Bilirubin (Negative) Urine Urobilinogen (<2.0) mg/dL Ur Leukocyte Esterase (Negative) - Radiology Data Radiology results: report reviewed, image reviewed Disposition Clinical Impression: Gallstones, Back pain Disposition: HOME SELF-CARE Instructions (If sedation given, give patient instructions): Biliary Colic (ED), Gallstones (ED), Back Pain (ED) Additional Instructions: Return to the emergency department with any new, worsening, or concerning symptoms. Take the Mobic daily for pain relief. You can take this with Tylenol, however do not take any other anti-inflammatories such as ibuprofen with this. Take the Robaxin as 1 to 2 tablets up to 3-4 times daily. Be aware that this may make you drowsy. You can also apply the lidocaine patches daily. Contact the general surgeon as listed below for a follow-up appointment regarding the gallstones. Follow up with your primary care provider in 1-2 days. Prescriptions: Lidocaine 5% Patch [Lidoderm 5% Patch] 1 patch TOPICAL DAILY PRN #30 patch PRN Reason: Pain Meloxicam [Mobic] 15 mg PO DAILY PRN #30 tab PRN Reason: Pain methocarbamoL [Robaxin-750] 1,500 mg PO TID PRN #30 tab PRN Reason: Pain Is patient prescribed a controlled substance at d/c from ED?: No Referrals: David Palomares MD [Primary Care Provider] - 1-2 days Yaron Soliman MD [STAFF PHYSICIAN] - 1-2 days Dayton Murdock MD [Medical Doctor] - 1-2 days Time of Disposition: 15:36
[2024-01-20 14:02] VITALS: RESP 18
--- NOTE | 2024-01-20 14:31 | CT ---
EXAMINATION TYPE: CT abdomen pelvis wo con DATE OF EXAM: 01/20/2024 COMPARISON: None INDICATION: Right flank pain DLP: 1592 mGycm, Automated exposure control for dose reduction was used. CONTRAST: 0 mL of Isovue 300. Study performed without Oral Contrast TECHNIQUE: Axial images were obtained from above the diaphragm to the pubic rami in the axial plane a t 5 mm thick sections. Reconstructed images are reviewed on the computer in the coronal plane. FINDINGS: Limited CT sections are obtained the lung bases. There may be some mild opacification within the nadir gula could be some atelectasis. Lung bases are otherwise clear.. CT ABDOMEN: Liver: Normal Spleen: Calcified granulomata within the spleen Pancreas: Some faint punctate calcifications are scattered within the pancreas may represent some chr onic pancreatitis. No acute pancreatitis radiographically evident. Adrenal glands: The adrenal glands are normal. Gallbladder: Cholelithiasis Kidneys: No masses are evident. No hydronephrosis is present. There is a nonobstructing superior pole left renal stone measuring 0.4 cm. Multiple exophytic cysts are present on the bilateral kidneys. Largest on the posterior lateral right kidney measuring 6.3 cm. No renal stones are evident Aorta: Vascular calcification is within the aorta. Inferior vena cava: Normal. CT PELVIS: Few diverticular changes are within the sigmoid colon. No dilated loops of bowel are evident. The cachorro dy is without oral contrast limiting bowel evaluation. Appendix: Normal as visualized. Urinary bladder: Normal. Genitourinary structures: Prostate contains calcification and is prominent. Osseous structures: No suspicious lytic or sclerotic lesions. Degenerative disc changes are within pelon mbar spine. Vacuum disc phenomenon is present. IMPRESSION: 1. Diverticulosis without acute diverticulitis. 2. Nonobstructing left renal stone. 3. Chronic pancreatitis
--- NOTE | 2024-01-20 15:31 | CT ---
CTA CHEST EXAMINATION TYPE: CT chest angio for PE DATE OF EXAM: 01/20/2024 INDICATION: Nontraumatic back pain, elevated d-dimer. CT DLP: 925.1 mGycm, Automated exposure control for dose reduction was used. CONTRAST: Patient injected with 100 mL of Isovue 300. COMPARISON: TECHNIQUE: CT of the chest is performed on a spiral scan at 2 mm thick sections. Study is performed with intravenous contrast timed for evaluation for pulmonary embolism. This will limit additional po rtions of the evaluation. 3-D MIP images reconstructed by the technologist are reviewed on the compu ter in the coronal and sagittal planes. FINDINGS: No persistent filling defects are evident to suggest an acute pulmonary embolism. No mediastinal or hilar adenopathy enlarged by CT criteria is evident. The ascending aorta diameter at the level of the main pulmonary artery is 3.7 cm. The main pulmonary artery diameter at the bifurcation is 3.0 cm. Lung windows are clear. Limited CT sections were through the upper abdomen. Cholelithiasis present. Renal cysts present. IMPRESSION: 1. No acute pulmonary embolism. 2. No acute pulmonary process. 3. Cholelithiasis
[2024-01-20] MEDS: ONDANSETRON 4 MG ODT STARTER PACK 2 TAB BTL PO STA (15:46)
[2024-01-20] MEDS: traMADol 50 MG STARTER PACK 3 TAB BTL PO STA (15:46)
[2024-01-20 16:32] VITALS: BP 184/75; PULSE 65; TEMP 97.9
== END 2024-01-20 15:53 | disposition home or self-care (01) ==
LOC: EC 11:30
DX: K80.20 Calculus of gallbladder without cholecystitis without obstruction (principal); M54.9 Dorsalgia, unspecified; E11.9 Type 2 diabetes mellitus without complications; E78.5 Hyperlipidemia, unspecified; I10 Essential (primary) hypertension; I25.10 Atherosclerotic heart disease of native coronary artery without angina pectoris; Z87.891 Personal history of nicotine dependence; Z88.0 Allergy status to penicillin; Z88.2 Allergy status to sulfonamides; Z95.1 Presence of aortocoronary bypass graft; Z95.5 Presence of coronary angioplasty implant and graft; Z79.4 Long term (current) use of insulin; Z79.899 Other long term (current) drug therapy
CPT/HCPCS: 36415; 85379; 80053; 82150; 83605; 83690; 84484; 85025; 81003; 71275; 74176; 99284; 96374; 96375; 96361; J2270; J1885; S0119; Q9967

== ENCOUNTER 2024-04-10 09:40 | Day surgery (SDC) | payer MEDICARE ==
[2024-04-10] MEDS ORDERED: ACETAMINOPHEN TAB 500 MG TAB ONE (10:46)
[2024-04-10] MEDS ORDERED: HEPARIN SODIUM,PORCINE 5,000 UNIT/ML 1 ML VIAL ONE (10:46)
[2024-04-10] MEDS ORDERED: ONDANSETRON 4 MG/2 ML VIAL ONE (10:46)
[2024-04-10] MEDS ORDERED: DEXAMETHASONE SOD PHOSPHATE 4 MG/ML 1 ML VIAL ONE (10:46)
[2024-04-10] MEDS ORDERED: ceFAZolin 10 GM VIAL IVPB ONE (12:56)
[2024-04-10] MEDS ORDERED: LACTATED RINGERS 1,000 ML BAG ONE (12:56)
[2024-04-10] MEDS ORDERED: LIDOCAINE 1%-EPI 1:100,000 20 ML VIAL ONE (12:56)
[2024-04-10] MEDS ORDERED: SODIUM CHLORIDE 0.9% 100 ML BAG IV ONE (12:56)
[2024-04-10] MEDS ORDERED: SUCCINYLCHOLINE CHLORIDE 200 MG/10 ML VIAL IV ONE (13:51)
[2024-04-10] MEDS ORDERED: ceFAZolin 1 GM/50 ML BAG (PMX) ONE (13:51)
[2024-04-10] MEDS ORDERED: PHENYLEPHRINE-0.9% NACL SYG 1,000 MCG/10 ML SYRINGE ONE (13:51)
[2024-04-10] MEDS ORDERED: ROCURONIUM 10 MG/ML (5 ML VIAL) IV ONE (13:51)
[2024-04-10] MEDS ORDERED: LIDOCAINE 1% INJ 10MG/ML (20 ML MDV) ONE (13:51)
[2024-04-10] MEDS ORDERED: GLYCOPYRROLATE 0.2 MG/ML 2 ML VIAL ONE (13:51)
[2024-04-10] MEDS ORDERED: WATER FOR INJECTION, STERILE 10 ML VIAL IV ONE (13:51)
[2024-04-10] MEDS ORDERED: fentaNYL (PF) 50 MCG/ML 2 ML AMP ONE (13:51)
[2024-04-10] MEDS ORDERED: LABETALOL 5 MG/ML VIAL MDV ONE (13:51)
[2024-04-10] MEDS ORDERED: NEOSTIGMINE 1 MG/ML 10 ML VIAL ONE (13:51)
[2024-04-10] MEDS ORDERED: PROPOFOL 10 MG/ML 20 ML VIAL IV ONE (13:51)
[2024-04-10] MEDS ORDERED: ePHEDrine 50 MG/ML 1 ML VIAL ONE (13:51)
[2024-04-10] MEDS ORDERED: HYDROmorphone 0.5 MG/0.5 ML SYRINGE ONE (15:27)
[2024-04-10] MEDS ORDERED: HYDROcodone/APAP 5-325MG 1 EACH TAB ONE (16:30)
--- NOTE | 2024-05-18 15:28 | OP ---
OPERATIVE REPORT DATE OF SERVICE : 04/10/2024 PROCEDURE: Laparoscopic cholecystectomy. PREOPERATIVE DIAGNOSIS: Chronic cholecystitis. POSTOPERATIVE DIAGNOSIS: Chronic cholecystitis. PATIENT CARE NURSING ASSISTANT: None. ANESTHESIA: General endotracheal tube anesthesia. DESCRIPTION OF PROCEDURE: The patient was placed on the operating table in supine position. He received general endotracheal tube anesthesia. His abdomen was prepped and draped in usual sterile fashion. The skin incision sites were anesthetized with 1% local xylocaine. The skin was incised with #11 blade at the umbilicus. Then, using a pair of Mechelle clamps, the umbilicus was grasped and the Veress needle was placed into the peritoneal cavity. Position of the Veress needle was confirmed with positive drop test. After adequate insufflation, a 5 mm trocar was placed into the peritoneal cavity. Next, the laparoscope was placed into the peritoneal cavity. The patient was placed in reverse Trendelenburg [id number] position. The gallbladder was grasped at the fundus and infundibulum. Traction of the gallbladder was placed in a lateral cephalad position. This opened up the triangle cord. The cystic duct was seen. The cystic duct was probably dissected using a pusher. The critical view of safety was achieved. The cystic duct was then ligated with 2-0 Ethibond suture using the tie knot device. Using the Harmonic scissors, the cystic artery was divided. The gallbladder was removed from the liver bed using electrocautery and the Harmonic scissors. This was brought out through the epigastric port site. The skin was closed after the trocars were removed. 3-0 Monocryl was used to close the trocar sites. The patient tolerated the procedure well. He was sent to recovery room in stable condition. MMODL / IJN: [id number] /
== END 2024-04-10 19:40 ==
LOC: OR 09:40
PROVIDERS: ATTEND Surgery
DX: K80.10 Calculus of gallbladder with chronic cholecystitis without obstruction (principal); I10 Essential (primary) hypertension; E78.5 Hyperlipidemia, unspecified; I25.10 Atherosclerotic heart disease of native coronary artery without angina pectoris; E11.9 Type 2 diabetes mellitus without complications; Z88.0 Allergy status to penicillin; Z88.2 Allergy status to sulfonamides; Z79.84 Long term (current) use of oral hypoglycemic drugs; Z79.02 Long term (current) use of antithrombotics/antiplatelets; Z79.899 Other long term (current) drug therapy

== ENCOUNTER 2024-06-21 08:38 | Day surgery (SDC) | payer MEDICARE ==
[2024-06-20 09:40] VITALS: BMI 36.1
[2024-06-21] MEDS: SODIUM CHLORIDE 0.9% 1,000 ML in EMPTY BAG 1 BAG IV SCH (08:28)
[2024-06-21] MEDS: IV FLUID CONTINUATION 1,000 ML IV ONE (08:29)
[~2024-06-21 08:38] MED LIST changes: +ALPRAZolam 0.25 MG TAB PO PRN; +ALPRAZolam 0.5 MG TAB PO PRN; -DEXAMETHASONE SOD PHOSPHATE 4 MG/ML 1 ML VIAL IV ONE; +HEPARIN SODIUM,PORCINE (1 ML) 2,500 UNIT in SODIUM CHLORIDE 0.9% 250 ML IRRIGATION PRN; +HEPARIN SODIUM,PORCINE 10,000 UNIT in SODIUM CHLORIDE 0.9% 1,000 ML IRRIGATION PRN; -HYDROmorphone 0.5 MG/0.5 ML SYRINGE IVP PRN; +NITROGLYCERIN SL TABS 0.4 MG TAB SUBLINGUAL PRN; -ONDANSETRON 4 MG/2 ML VIAL IVP ONE; -Pre Op ABX Message 1 EACH MISC MISCELLANE ONE
[2024-06-21 09:08] LABS: Glucose,Whole Blood 142 mg/dL (70-110)
[2024-06-21 09:29] LABS: Anisocytosis Slight; Basophils # (A) 0.1 k/uL (0-0.2); Basophils % (A) 1 %; Eosinophils # (A) 0.2 k/uL (0-0.7); Eosinophils % (A) 3 %; HCT 44.1 % (39.0-53.0); HGB 13.3 gm/dL (13.0-17.5); Hypochromasia Marked; Lymphocytes # (A) 1.4 k/uL (1.0-4.8); Lymphocytes % (A) 18 %; MCH 28.9 pg (25.0-35.0); MCHC 30.2 g/dL (31.0-37.0); MCV 95.5 fL (80.0-100.0); Mean Platelet Volume 7.2; Monocytes # (A) 0.4 k/uL (0-1.0); Monocytes % (A) 6 %; Neutrophils # (A) 5.4 k/uL (1.3-7.7); Neutrophils % (A) 72 %; Platelet Count 303 k/uL (150-450); RBC 4.61 m/uL (4.30-5.90); RDW 16.4 % (11.5-15.5); WBC 7.5 k/uL (3.8-10.6)
[2024-06-21 09:33] LABS: African American GFR (CKD) >90 (>60 ml/min/1.73 sqM); Anion Gap 6 mmol/L; Blood Urea Nitrogen 24 mg/dL (9-20); Calcium 9.4 mg/dL (8.4-10.2); Carbon Dioxide 28 mmol/L (22-30); Chloride 107 mmol/L (98-107); Glucose 146 mg/dL (74-99); Non-African American GFR(CKD) 82 (>60 ml/min/1.73 sqM); Sodium 141 mmol/L (137-145)
[2024-06-21 09:36] LABS: Potassium 5.4 mmol/L (3.5-5.1)
[2024-06-21] MEDS: fentaNYL (PF) 50 MCG/ML 2 ML AMP IVP ONE (10:30)
[2024-06-21] MEDS: MIDAZOLAM 2 MG/2 ML VIAL IVP ONE (10:30)
[2024-06-21] MEDS: LIDOCAINE 1% INJ 10MG/ML (20 ML MDV) SQ ONE ×3 (10:33→10:38)
[2024-06-21] MEDS: HEPARIN SODIUM,PORCINE 10,000 UNIT in SODIUM CHLORIDE 0.9% 1,000 ML IRRIGATION ONE (10:57)
[2024-06-21] MEDS: HEPARIN SODIUM,PORCINE (1 ML) 2,500 UNIT in SODIUM CHLORIDE 0.9% 250 ML IRRIGATION ONE (10:58)
[2024-06-21] MEDS: HEPARIN SODIUM 1,000 UN/ML (10ML VL) IVP ONE ×2 (11:39→11:59)
[2024-06-21] MEDS ORDERED: MELOXICAM 7.5 MG TAB PO PRN (11:58)
[2024-06-21] MEDS ORDERED: DOCUSATE 100 MG CAP PO PRN (11:58)
[2024-06-21] MEDS ORDERED: ZOLPIDEM 5 MG TAB PO PRN (11:59)
[2024-06-21] MEDS ORDERED: ATROPINE SULFATE 0.1 MG/ML 10ML SYRINGE IV PRN (11:59)
[2024-06-21] MEDS ORDERED: MAG HYDROX/AL HYDROX/SIMETH 30 ML CUP PO PRN (11:59)
[2024-06-21] MEDS ORDERED: RX INFO: IV CONTRAST WAS GIVEN 1 EACH MISC MISCELLANE PRN (11:59)
[2024-06-21] MEDS: IOPAMIDOL-370 100ML BTL INJ ONE (12:00)
--- NOTE | 2024-06-21 12:05 | P.PCN ---
Date of Procedure: 06/21/24 Operative Findings: PERCUTANEOUS CORONARY INTERVENTION Performing physician Ramin Yung M.D. Procedure Performed: 1. Successful stenting of the SVG to diagonal using 3.5 x 23 Xience drug-eluting stent with an excellent angiographic results. 2. Adjunctive use of IVUS Indication: Severe disease involving the SVG to diagonal is symptomatic 74-year-old gentleman Approach: Right common femoral artery Complications: None Level of Sedation: Moderate with a sedation length of 28 minutes Procedure Discussion: After diagnostic heart catheterization was performed we decided to intervene on the SVG to diagonal via the SVG to diagonal was cannulated using AL-1 guiding catheter was wired using a run-through wire. Intravascular ultrasound IVUS was performed that showed diameter around 3.5 mm. Predilatation was performed using 3 mm balloon before I deployed 3.5 x 23 mm stent. Final angiogram showed excellent angiographic results and the procedure was completed with no complication Postprocedure Management: 1. Dual antiplatelet therapy using aspirin and Plavix for at least 6-month 2. Aggressive cholesterol control 3. Risk factors modification
[2024-06-21] MEDS: hydrALAZINE HCL 20 MG/ML 1 ML VIAL IVP STA (13:46)
[2024-06-21] MEDS: ATORVASTATIN 80 MG TAB PO STA (16:58)
[2024-06-21] MEDS: ASPIRIN 325 MG TAB PO STA (16:58)
[2024-06-21 17:15] LABS: Glucose,Whole Blood 121 mg/dL (70-110)
[2024-06-21] MEDS: FENOFIBRATE 160 MG TAB PO SCH (17:36)
[2024-06-21 19:48] LABS: Glucose,Whole Blood 166 mg/dL (70-110)
[2024-06-21] MEDS: ATORVASTATIN 80 MG TAB PO SCH (19:48)
[2024-06-21] MEDS: INSULIN DETEMIR (LEVEMIR) 100 UNIT/ML SYR SQ SCH (19:48)
[2024-06-21] MEDS: methocarbamoL 750 MG TAB PO PRN (20:07)
--- NOTE | 2024-06-21 20:47 | CC ---
CARDIAC CATHETERIZATION REPORT INDICATION: Unstable angina. PROCEDURE NOTE: After obtaining informed consent, left heart catheterization, coronary angiogram were performed via the right femoral artery using standard Coty catheters. The patient tolerated the procedure well without any obvious immediate complications. I initially attempted vascular access on the right side, it was unsuccessful. I had arterial axis involving the left common femoral artery. However, I was not able to pass the sheath, so Dr. Yung, the on-call mining consultant, obtained access from the right femoral artery for me and a long sheath was placed and I performed a cardiac catheterization to that. Procedure was completed uneventfully. Total sedation time was 60 minutes. FINDINGS: 1. HEMODYNAMICS: Left ventricular end-diastolic pressure is 24 mm. There is no significant gradient across the aortic valve. 2. ANGIOGRAPHIC DATA: a.[place] right coronary artery is chronically occluded proximally. b.Left main coronary artery shows mild nonobstructive disease, divides into left anterior descending coronary artery and circumflex coronary artery. c.LAD is totally occluded in its midportion with a 90% stenosis involving proximally circumflex coronary artery, the AV groove circ is chronically occluded. The OM branch is free of disease. It is a small nondominant vessel. There are [id number] collaterals to the distal RCA. SELECTIVE INJECTION OF THE BYPASS GRAFTS: 1. DAY to LAD appears patent and is free of disease. 2. Venous graft to the right coronary artery is patent and the previously stented segment appears normal. 3. Venous graft to the diagonal branch shows a focal 80% stenosis. CONCLUSIONS: Three-vessel coronary artery disease as described above with patent DAY to LAD, patent venous graft to the right coronary artery with patent stent, patent venous graft to the diagonal with a focal 80% stenosis that is new compared to last year. PLAN: Given the patient's symptoms, Dr. Yung is going to perform angioplasty with stent placement of the diagonal branch. MMODL / IJN: [id number] /
[2024-06-22 03:18] VITALS: RESP 16
[2024-06-22 05:49] LABS: Anisocytosis Slight; Basophils % (A) 1 %; Eosinophils # (A) 0.2 k/uL (0-0.7); Eosinophils % (A) 2 %; HCT 44.2 % (39.0-53.0); HGB 13.1 gm/dL (13.0-17.5); Hypochromasia Marked; Lymphocytes # (A) 1.7 k/uL (1.0-4.8); Lymphocytes % (A) 20 %; MCH 28.5 pg (25.0-35.0); MCHC 29.6 g/dL (31.0-37.0); MCV 96.4 fL (80.0-100.0); Macrocytosis Slight; Mean Platelet Volume 7.6; Monocytes # (A) 0.4 k/uL (0-1.0); Monocytes % (A) 5 %; Neutrophils # (A) 6.2 k/uL (1.3-7.7); Neutrophils % (A) 72 %; Platelet Count 309 k/uL (150-450); Poikilocytosis Slight; RBC 4.59 m/uL (4.30-5.90); RDW 16.9 % (11.5-15.5); WBC 8.7 k/uL (3.8-10.6)
[2024-06-22 06:05] LABS: African American GFR (CKD) >90 (>60 ml/min/1.73 sqM); Anion Gap 6 mmol/L; Blood Urea Nitrogen 20 mg/dL (9-20); Calcium 9.5 mg/dL (8.4-10.2); Carbon Dioxide 27 mmol/L (22-30); Chloride 106 mmol/L (98-107); Glucose 80 mg/dL (74-99); Non-African American GFR(CKD) 85 (>60 ml/min/1.73 sqM); Potassium 4.9 mmol/L (3.5-5.1); Sodium 139 mmol/L (137-145)
[2024-06-22 07:26] VITALS: BP 106/82; PULSE 75; TEMP 97.7
[2024-06-22 09:52] LABS: Glucose,Whole Blood 144 mg/dL (70-110)
--- NOTE | 2024-06-22 09:59 | P.DS ---
Providers Expected date of discharge: 06/22/24 Attending physician: Tate Sarmiento Consults: 06/21/24 11:59 Consult Physician Routine Consulting Provider: [facility] Consult Reason/Comments: Post Interventional patient Do you want consulting provider notified?: Already Contacted [facility] Course: This is a 74-year-old male patient with past medical history of coronary artery disease status post bypass surgery status post prior angioplasty of the venous graft to the right coronary artery, hypertension, dyslipidemia. Patient was brought into the hospital underwent cardiac catheterization yesterday which revealed three-vessel coronary artery disease with patent DAY to LAD, patent venous graft to the right coronary artery with patent stent,'s patent venous graft to the diagonal with a focal 80% stenosis compared to last year. He subsequently underwent successful stenting of the SVG to the diagonal using JE performed by Dr. Yung. Patient had initial attempt on the left groin followed by utilization of the right groin. Both sides are without bruit, hematoma, bleeding. Patient denies having any chest pain or shortness of breath. Aspirin has been added to his home medication regime. Physical examination: Gen: This is a 74-year-old male sitting up in a chair in no acute distress VS: reviewed HEENT: Head is atraumatic, normocephalic. Pupils equal, round. Sclerae is anicteric. NECK: Supple. No JVD. LUNGS: Clear to auscultation. No wheezes or rhonchi. No intercostal retractions. HEART: Regular rate and rhythm. No murmur. ABDOMEN: Soft No tenderness. EXTREMITIES: No pedal edema. No calf tenderness. NEUROLOGICAL: Patient is awake, alert and oriented x3. Assessment: Coronary artery disease status postcardiac catheterization and stenting of the SVG to the diagonal Plan: Patient is cleared for discharge and will follow-up in the office in 1 week, scheduled for 06/28/2024. Nurse practitioner note has been reviewed, I agree with documented findings and plan of care. Patient was seen and examined. Plan - Discharge Summary Discharge Rx Participant: Yes New Discharge Prescriptions: New Aspirin 81 mg PO DAILY tab Continue gemfibroziL [Lopid] 600 mg PO AC-BID Nitroglycerin Sl Tabs [Nitrostat] 0.4 mg SL Q5M PRN PRN Reason: Chest Pain Clopidogrel [Plavix] 75 mg PO DAILY #90 tab Furosemide [Lasix] 20 mg PO QAM Metoprolol Succinate (ER) [Toprol XL] 25 mg PO QAM HYDROcodone/APAP 5-325MG [[place] 5-325] 1 each PO Q4HR PRN 3 Days #18 tab PRN Reason: Pain Scale 8 To 10 methocarbamoL [Robaxin-750] 1,500 mg PO TID PRN #30 tab PRN Reason: Pain lisinopriL [Zestril] 40 mg PO QAM Docusate [Colace] 100 mg PO BID PRN PRN Reason: Constipation Meloxicam [Mobic] 15 mg PO DAILY PRN #30 tab PRN Reason: Pain Insulin Degludec [Tresiba Flextouch U-100 Pen] 80 units SQ HS Discharge Medication List gemfibroziL [Lopid] 600 mg PO AC-BID 11/27/20 [History] lisinopriL [Zestril] 40 mg PO QAM 05/28/22 [History] Nitroglycerin Sl Tabs [Nitrostat] 0.4 mg SL Q5M PRN 11/10/22 [History] Clopidogrel [Plavix] 75 mg PO DAILY #90 tab 11/11/22 [Rx] Furosemide [Lasix] 20 mg PO QAM 05/07/23 [History] Metoprolol Succinate (ER) [Toprol XL] 25 mg PO QAM 05/07/23 [History] HYDROcodone/APAP 5-325MG [[place] 5-325] 1 each PO Q4HR PRN 3 Days #18 tab 05/11/23 [Rx] Docusate [Colace] 100 mg PO BID PRN 10/08/23 [History] Meloxicam [Mobic] 15 mg PO DAILY PRN #30 tab 01/20/24 [Rx] methocarbamoL [Robaxin-750] 1,500 mg PO TID PRN #30 tab 01/20/24 [Rx] Insulin Degludec [Tresiba Flextouch U-100 Pen] 80 units SQ HS 06/20/24 [History] Aspirin 81 mg PO DAILY tab 06/22/24 [Rx] Follow up Appointment(s)/Referral(s): Tate Sarmiento MD [STAFF PHYSICIAN] - 06/28/24 3:45 pm Patient Instructions/Handouts: Moderate Sedation (DC), Left Heart Catheterization (DC) Activity/Diet/Wound Care/Special Instructions: NO DRIVING FOR 3 DAYS. OK TO SHOWER TOMORROW BUT NO SOAKING IN TUBS, SWIMMING ECT TO PREVENT INFECTION. AVOID STAIRS, PUSHING, PULLING, LIFTING MORE THAN 10 LBS FOR 3 DAYS. SIGNS OF INFECTION IE: FEVER, RASH, UNUSUAL DRAINAGE, SWELLING OR HARD KNOT CONTACT DR OR GO TO ER TO EVALUATE. ACETAMINOPHEN FOR PAIN NEEDED DIRECTED.
[2024-06-22] MEDS: FUROSEMIDE 20 MG TAB PO SCH (10:55)
[2024-06-22] MEDS: ASPIRIN 81 MG PO SCH (10:55)
[2024-06-22] MEDS: CLOPIDOGREL 75 MG TAB PO SCH (10:55)
[2024-06-22] MEDS: lisinopriL 20 MG TAB PO SCH (10:56)
[2024-06-22] MEDS: METOPROLOL SUCCINATE (ER) 25 MG TAB.ER.24H PO SCH (10:57)
== END 2024-06-22 12:53 | disposition home or self-care (01) ==
LOC: CATHCVL 08:38 → 6NMEDSUR 11:50 → CATHCVL 06-22 12:53
PROVIDERS: ATTEND Internal Medicine Cardiovascular Disease
DX: I25.810 Atherosclerosis of coronary artery bypass graft(s) without angina pectoris (principal); R07.89 Other chest pain; Z88.0 Allergy status to penicillin; Z88.2 Allergy status to sulfonamides; Z87.891 Personal history of nicotine dependence
CPT/HCPCS: 99152; 99153; 93005; 92978; 93459; 80048 ×2; 85025 ×2; C9604; C1887; C1769 ×4; C1894 ×3; C1753; C1874; C1725; J2250; J0360; J1644 ×3; J2003; J3010; Q9967

== ENCOUNTER 2024-08-21 09:57 | Day surgery (SDC) | payer MEDICARE ==
[~2024-08-21 09:57] MED LIST changes: -NITROGLYCERIN SL TABS 0.4 MG TAB SUBLINGUAL PRN; +ZOLPIDEM 5 MG TAB PO PRN
[2024-08-21] MEDS: EMPTY BAG 1 BAG with SODIUM CHLORIDE 0.9% 1,000 ML IV SCH (10:05)
[2024-08-21] MEDS: IV FLUID CONTINUATION 1,000 ML IV ONE (10:15)
[2024-08-21 10:24] LABS: Glucose,Whole Blood 109 mg/dL (70-110)
[2024-08-21 10:27] VITALS: RESP 20; TEMP 98.6
[2024-08-21 10:48] LABS: Basophils # (A) 0.1 k/uL (0-0.2); Basophils % (A) 1 %; Eosinophils # (A) 0.2 k/uL (0-0.7); Eosinophils % (A) 3 %; HCT 46.7 % (39.0-53.0); HGB 14.3 gm/dL (13.0-17.5); Hypochromasia Marked; Lymphocytes # (A) 1.5 k/uL (1.0-4.8); Lymphocytes % (A) 20 %; MCH 28.2 pg (25.0-35.0); MCHC 30.6 g/dL (31.0-37.0); MCV 92.2 fL (80.0-100.0); Mean Platelet Volume 7.2; Monocytes # (A) 0.4 k/uL (0-1.0); Monocytes % (A) 5 %; Neutrophils # (A) 5.3 k/uL (1.3-7.7); Neutrophils % (A) 70 %; Platelet Count 303 k/uL (150-450); RBC 5.07 m/uL (4.30-5.90); WBC 7.6 k/uL (3.8-10.6)
[2024-08-21 10:58] LABS: African American GFR (CKD) 63 (>60 ml/min/1.73 sqM); Anion Gap 10 mmol/L; Blood Urea Nitrogen 30 mg/dL (9-20); Calcium 9.8 mg/dL (8.4-10.2); Carbon Dioxide 31 mmol/L (22-30); Chloride 100 mmol/L (98-107); Glucose 116 mg/dL (74-99); Non-African American GFR(CKD) 55 (>60 ml/min/1.73 sqM); Potassium 4.7 mmol/L (3.5-5.1); Sodium 141 mmol/L (137-145)
[2024-08-21] MEDS: LIDOCAINE 1% INJ 10MG/ML (20 ML MDV) SQ ONE (11:34)
[2024-08-21] MEDS: MIDAZOLAM 2 MG/2 ML VIAL IVP ONE (11:34)
[2024-08-21] MEDS: IOPAMIDOL-370 100ML BTL INJ ONE (11:54)
--- NOTE | 2024-08-21 11:56 | P.OP ---
Date of Procedure: 08/21/24 Description of Procedure: Preoperative diagnosis: Disabling claudication, rest pain [place] classification 4, history of bilateral femoral-tibial bypass Postop diagnosis: Thrombosed left femoral-tibial bypass, patent right femoral- tibial bypass with two-vessel runoff on the right, 1 vessel runoff in the left Procedure: Aortogram with bilateral lower extremity runoffs via left radial artery access under ultrasound guidance Surgeon: Mannie Anesthesia: Moderate sedation times 16 minutes Estimated blood loss: Less than 5 cc Complications: None Condition: Stable Indication for procedure: 74-year-old gentleman with history of peripheral arterial disease, claudication with bilateral femoral-tibial artery bypasses over the last several years presented to the office secondary to worsening pain in the left lower extremity. He recently underwent coronary angiogram via the groin which he states that they attempted his left femoral artery access multiple times without success and then ultimately accessed the right femoral artery for his stents. He had 2 stents placed at that time. After his angio gram he noted that his left leg started to hurt more and over the last several weeks almost 2 months he was having severe pain in the left leg especially with ambulation. He was unable to ambulate more than 50 feet when he finally came into the office. During his evaluation in the office under ultrasound he is bypass was occluded and his ABIs had dropped to 0.4 on the left. He presents today for elective aortogram with runoff to see where another bypass can be performed. Findings: Aorta: Patent without any significant stenosis Iliacs: Patent without any significant stenosis. Right common iliac artery stenting noted which is patent Femorals: Patent with some moderate disease noted and right Mcdonald tibial bypass takeoff without any stenosis. Left femoral tibial bypass is occluded Popliteal: Severe disease on the left with no visualization of flow. Right popliteal artery is occluded with bypass patent around and distal to Tibials: Patent tibioperoneal trunk on the right with no evidence of stenosis of the distal anastomosis. Two-vessel runoff to the ankle. Left tibial peroneal trunk appears to be patent but slow filling. Anterior tibial artery takeoff is noted but one-vessel runoff to the ankle via the posterior tibial artery is noted. Operative narrative: After written informed consent was obtained the patient all risks benefits competitions were described the patient is brought to the Records Supervisor and laid in a supine position. The area of the left wrist was prepped and draped in the usual sterile fashion. Local anesthesia with moderate sedation was performed with continuous pulse ox monitoring and EKG monitoring. Utilizing ultrasound the left radial artery was visualized and shown to be patent without any significant plaque. Utilizing a multipurpose needle under ultrasound guidance the artery was accessed. Guidewire was placed followed by 5 [place] sheath. 035 Glidewire was then placed into the aorta followed by pigtail catheter. Angiogram was then obtained of the aorta. Catheter was then placed at the bifurcation and lower extremity runoffs were obtained. Once completed all guidewires, catheters and sheaths were removed and pressure was placed for hemostasis. Patient tolerated procedure well was sent to PACU for recovery. Patient will require a left femoral to posterior tibial artery bypass with CryoVein in the next coming weeks.
--- NOTE | 2024-08-21 13:15 | IR ---
EXAMINATION TYPE: IR angio abdominal w runoff DATE OF EXAM: 08/21/2024 FLUOROSCOPY bilateral leg pain, 1.9min fluoro, 71.9Gycm2 111 images submitted [facility], , 08/21/2024 1:13 PM
[2024-08-21 16:09] VITALS: BP 134/60; PULSE 65
== END 2024-08-21 15:00 | disposition home or self-care (01) ==
LOC: CATHCVL 09:57
PROVIDERS: ATTEND Surgery
DX: I73.9 Peripheral vascular disease, unspecified (principal)
CPT/HCPCS: 36200; 75625; 75716; 76937; 80048; 85025; C1769 ×2; C1894; J2250; J2003; Q9967

== ENCOUNTER 2024-09-01 09:30 | Emergency (ER) | payer MEDICARE ==
[2024-09-01 09:39] VITALS: TEMP 98.7
--- NOTE | 2024-09-01 10:04 | ED ---
General Adult HPI - General Chief complaint: Abdominal Pain Stated complaint: Post-op Abd pain Time Seen by Provider: 09/01/24 09:40 Source: patient, RN notes reviewed, old records reviewed Mode of arrival: ambulatory Limitations: no limitations - History of Present Illness Initial comments: This is a 74-year-old male who presents to the emergency department stating that for the last 2 weeks has had some right lower quadrant abdominal pain and is intermittent and last night it was quite severe and right now it is not that bad. Patient denies any nausea vomiting or diarrhea. Patient denies any fever chills. Patient states she has had his appendix out and in May he had his gallbladder out. Patient denies any back pain. Patient denies any dysuria hematuria urinary frequency. - Related Data Home Medications Medication Instructions Recorded Confirmed gemfibroziL [Lopid] 600 mg PO AC-BID 11/27/20 09/01/24 Nitroglycerin Sl Tabs [Nitrostat] 0.4 mg SL Q5M PRN 11/10/22 09/01/24 Furosemide [Lasix] 20 mg PO Q2D 05/07/23 09/01/24 Metoprolol Succinate (ER) [Toprol 25 mg PO DAILY 05/07/23 09/01/24 XL] Docusate [Colace] 100 mg PO BID PRN 10/08/23 09/01/24 Insulin Degludec [Tresiba 100 units SQ HS 09/01/24 09/01/24 Flextouch U-200 Pen] Isosorbide Mononitrate ER [Imdur] 30 mg PO DAILY 09/01/24 09/01/24 lisinopriL [Zestril] 20 mg PO DAILY 09/01/24 09/01/24 Previous Rx's Medication Instructions Recorded Clopidogrel [Plavix] 75 mg PO DAILY #90 tab 11/11/22 Allergies Allergy/AdvReac Type Severity Reaction Status Date / Time Penicillins Allergy Unknown Verified 09/01/24 11:47 Childhood Sulfa (Sulfonamide Allergy Rash/Hives Verified 09/01/24 11:47 Antibiotics) Review of Systems ROS Statement: Those systems with pertinent positive or pertinent negative responses have been documented in the HPI. ROS Other: All systems not noted in ROS Statement are negative. Past Medical History Past Medical History: Coronary Artery Disease (CAD), Chest Pain / Angina, COPD, Diabetes Mellitus, Hyperlipidemia, Hypertension, Myocardial Infarction (DE), Osteoarthritis (OA), Vascular Disorder Additional Past Medical History / Comment(s): chest discomfort with walking stairs- mld,Hx vertigo in the past Last Myocardial Infarction Date:: 2012 History of Any Multi-Drug Resistant Organisms: None Reported Past Surgical History: Appendectomy, Coronary Bypass/CABG, Heart Catheterization, Heart Catheterization With Stent Additional Past Surgical History / Comment(s): Bilateral carotid endarterectomy, quadruple CABG 2017, 3 cardiac stents, hemmorhoidectomy, procedures to veins in legs. Past Anesthesia/Blood Transfusion Reactions: No Reported Reaction Additional Past Anesthesia/Blood Transfusion Reaction / Comment(s): Vertigo. no known hx of blood transfusion Date of Last Stent Placement:: 10/2022 Past Psychological History: No Psychological Hx Reported Smoking Status: Former smoker - Past Family History Father Family Medical History: Coronary Artery Disease (CAD), Myocardial Infarction (M I) Mother Family Medical History: Cancer, Renal Disease Brother(s) Family Medical History: Cancer Sister(s) Family Medical History: Cancer Son(s) Family Medical History: Cancer (patient has biological son and a stepson his biological son had thyroid cancer.) General Exam - General Exam Comments Initial Comments: GENERAL: Patient is well-developed and well-nourished. Patient is nontoxic and well- hydrated and is in mild distress. ENT: Neck is soft and supple. No significant lymphadenopathy is noted. Oropharynx is clear. Moist mucous membranes. Neck has full range of motion without eliciting any pain. EYES: The sclera were anicteric and conjunctiva were pink and moist. Extraocular movements were intact and pupils were equal round and reactive to light. Eyelids were unremarkable. PULMONARY: Unlabored respirations. Good breath sounds bilaterally. No audible rales rhonchi or wheezing was noted. CARDIOVASCULAR: There is a regular rate and rhythm without any murmurs gallops or rubs. ABDOMEN: Soft and nontender with normal bowel sounds. I could not find any area of tenderness at this time SKIN: Skin is clear with no lesions or rashes and otherwise unremarkable. NEUROLOGIC: Patient is alert and oriented x3. Cranial nerves II through XII are grossly intact. Motor and sensory are also intact. Normal speech, volume and content. Symmetrical smile. MUSCULOSKELETAL: Normal extremities with adequate strength and full range of motion. LYMPHATICS: No significant lymphadenopathy is noted PSYCHIATRIC: Normal psychiatric evaluation. Limitations: no limitations Course Vital Signs 09/01/24 09:34 Temperature 98.7 F Pulse Rate 78 Respiratory 20 Rate Blood Pressure 181/84 O2 Sat by Pulse 89 L Oximetry Medical Decision Making - Medical Decision Making Was pt. sent in by a medical professional or institution (FELICITA Farrell, EMERGENCY SPILL RESPONSE TECHNICIAN, urgent care, hospital, or jail...) When possible be specific @ -No Did you speak to anyone other than the patient for history (EMS, parent, family, police, friend...)? What history was obtained from this source @ -No Did you review nursing and triage notes (agree or disagree)? Why? @ -I reviewed and agree with nursing and triage notes Were old charts reviewed (outside hosp., previous admission, EMS record, old EKG, old radiological studies, urgent care reports/EKG's, jail records)? Report findings @ -No old charts were reviewed Differential Diagnosis? @ -Differential Abdominal Pain Men: Appendicitis, cholecystitis, diverticulosis, ischemic bowel, pancreatitis, hepatitis, UTI, gastroenteritis, AAA, incarcerated hernia, bowel obstruction, constipation, inflammatory bowel, hepatitis, peptic ulcer disease, splenic infarction, perforated viscus, testicular torsion, this is not meant to be an all-inclusive list EKG interpreted by me (3pts min.). @ -As above X-rays interpreted by me (1pt min.). @ -KUB shows no acute abnormality chest x-ray shows no acute normality. CT interpreted by me (1pt min.). @ -None done U/S interpreted by me (1pt. min.). @ -None done What testing was considered but not performed or refused? (CT, X-rays, U/S, labs)? Why? @ -None What meds were considered but not given or refused? Why? @ -None Did you discuss the management of the patient with other professionals (professionals i.e. FELICITA Farrell, EMERGENCY SPILL RESPONSE TECHNICIAN, lab, RT, psych nurse, social media job titles, cake washer, teacher, air control/anti air warfare officer, heel caser)? Give summary @ -No Was smoking cessation discussed for >3mins.? @ -No Was critical care preformed (if so, how long)? @ -No Were there social determinants of health that impacted care today? How? (Homelessness, low income, unemployed, alcoholism, drug addiction, trans portation, low edu. Level, literacy, decrease access to med. care, group home, rehab)? @ -No Was there de-escalation of care discussed even if they declined (Discuss DNR or withdrawal of care, Hospice)? DNR status @ -No What co-morbidities impacted this encounter? (DM, HTN, Smoking, COPD, CAD, Cancer, CVA, ARF, Chemo, Hep., AIDS, mental health diagnosis, sleep apnea, morbid obesity)? @ -None Was patient admitted / discharged? Hospital course, mention meds given and route, prescriptions, significant lab abnormalities, going to OR and other pertinent info. @ -I went back into review the patient and review all results with the patient and he was not having any pain at this time. Patient states he is feeling much better and he felt comfortable going home. Patient will take something for constipation when he gets home. Undiagnosed new problem with uncertain prognosis? @ -No Drug Therapy requiring intensive monitoring for toxicity (Heparin, Nitro, Insulin, Cardizem)? @ -No Were any procedures done? @ -No Diagnosis/symptom? @ -Abdominal pain Acute, or Chronic, or Acute on Chronic? @ -Acute Uncomplicated (without systemic symptoms) or Complicated (systemic symptoms)? @ -Complicated Side effects of treatment? @ -No Exacerbation, Progression, or Severe Exacerbation? @ -No Poses a threat to life or bodily function? How? (Chest pain, [place], [place], pneumonia, PE, COPD, DKA, ARF, appy, cholecystitis, CVA, Diverticulitis, Homicidal, Suicidal, threat to staff... and all critical care pts) @ -No - Lab Data Result diagrams: 09/01/24 10:39 09/01/24 10:43 Lab Results 09/01/24 09/01/24 09/01/24 Range/Units 10:39 10:43 10:43 WBC 7.7 (3.8-10.6) k/uL RBC 5.01 (4.30-5.90) m/uL Hgb 13.9 (13.0-17.5) gm/dL Hct 46.0 (39.0-53.0) % MCV 91.8 (80.0-100.0) fL MCH 27.8 (25.0-35.0) pg MCHC 30.3 L (31.0-37.0) g/dL RDW 16.5 H (11.5-15.5) % Plt Count 283 (150-450) k/uL MPV 7.6 Neutrophils % 73 % Lymphocytes % 18 % Monocytes % 5 % Eosinophils % 3 % Basophils % 1 % Neutrophils # 5.6 (1.3-7.7) k/uL Lymphocytes # 1.4 (1.0-4.8) k/uL Monocytes # 0.4 (0-1.0) k/uL Eosinophils # 0.2 (0-0.7) k/uL Basophils # 0.0 (0-0.2) k/uL Hypochromasia Marked Poikilocytosis Slight Anisocytosis Slight Sodium 142 (137-145) mmol/L Potassium 5.2 H (3.5-5.1) mmol/L Chloride 105 (98-107) mmol/L Carbon Dioxide 30 (22-30) mmol/L Anion Gap 7 mmol/L BUN 18 (9-20) mg/dL Creatinine 0.93 (0.66-1.25) mg/dL Est GFR (CKD-EPI)AfAm >90 (>60 ml/min/1.73 sqM) Est GFR (CKD-EPI)NonAf 81 (>60 ml/min/1.73 sqM) Glucose 138 H (74-99) mg/dL Plasma Lactic Acid Jose F 1.0 (0.7-2.0) mmol/L Calcium 9.4 (8.4-10.2) mg/dL Total Bilirubin 0.6 (0.2-1.3) mg/dL AST 22 (17-59) U/L ALT 12 (4-49) U/L Alkaline Phosphatase 66 (38-126) U/L Total Protein 7.2 (6.3-8.2) g/dL Albumin 4.0 (3.5-5.0) g/dL Amylase 48 (30-110) U/L Lipase 98 (23-300) U/L Urine Color Urine Appearance (Clear) Urine pH (5.0-8.0) Ur Specific [place] (1.001-1.035) Urine Protein (Negative) Urine Glucose (UA) (Negative) Urine Ketones (Negative) Urine Blood (Negative) Urine Nitrite (Negative) Urine Bilirubin (Negative) Urine Urobilinogen (<2.0) mg/dL Ur Leukocyte Esterase (Negative) Urine RBC (0-5) /hpf Urine WBC (0-5) /hpf Ur Squamous Epith Cells (0-4) /hpf Hyaline Casts (0-2) /lpf Urine Mucus (None) /hpf 09/01/24 Range/Units 10:51 WBC (3.8-10.6) k/uL RBC (4.30-5.90) m/uL Hgb (13.0-17.5) gm/dL Hct (39.0-53.0) % MCV (80.0-100.0) fL MCH (25.0-35.0) pg MCHC (31.0-37.0) g/dL RDW (11.5-15.5) % Plt Count (150-450) k/uL MPV Neutrophils % % Lymphocytes % % Monocytes % % Eosinophils % % Basophils % % Neutrophils # (1.3-7.7) k/uL Lymphocytes # (1.0-4.8) k/uL Monocytes # (0-1.0) k/uL Eosinophils # (0-0.7) k/uL Basophils # (0-0.2) k/uL Hypochromasia Poikilocytosis Anisocytosis Sodium (137-145) mmol/L Potassium (3.5-5.1) mmol/L Chloride (98-107) mmol/L Carbon Dioxide (22-30) mmol/L Anion Gap mmol/L BUN (9-20) mg/dL Creatinine (0.66-1.25) mg/dL Est GFR (CKD-EPI)AfAm (>60 ml/min/1.73 sqM) Est GFR (CKD-EPI)NonAf (>60 ml/min/1.73 sqM) Glucose (74-99) mg/dL Plasma Lactic Acid Jose F (0.7-2.0) mmol/L Calcium (8.4-10.2) mg/dL Total Bilirubin (0.2-1.3) mg/dL AST (17-59) U/L ALT (4-49) U/L Alkaline Phosphatase (38-126) U/L Total Protein (6.3-8.2) g/dL Albumin (3.5-5.0) g/dL Amylase (30-110) U/L Lipase (23-300) U/L Urine Color Yellow Urine Appearance Clear (Clear) Urine pH 5.5 (5.0-8.0) Ur Specific [place] 1.019 (1.001-1.035) Urine Protein 2+ H (Negative) Urine Glucose (UA) 1+ H (Negative) Urine Ketones Negative (Negative) Urine Blood Trace H (Negative) Urine Nitrite Negative (Negative) Urine Bilirubin Negative (Negative) Urine Urobilinogen <2.0 (<2.0) mg/dL Ur Leukocyte Esterase Negative (Negative) Urine RBC 3 (0-5) /hpf Urine WBC <1 (0-5) /hpf Ur Squamous Epith Cells <1 (0-4) /hpf Hyaline Casts 1 (0-2) /lpf Urine Mucus Rare H (None) /hpf Disposition Clinical Impression: Constipation, Abdominal pain Disposition: HOME SELF-CARE Instructions (If sedation given, give patient instructions): Abdominal Pain (ED), Constipation (ED), High Fiber Diet (ED) Is patient prescribed a controlled substance at d/c from ED?: No Referrals: David Palomares MD [Primary Care Provider] - 1-2 days Time of Disposition: 12:12
[2024-09-01 10:50] LABS: Anisocytosis Slight; Basophils % (A) 1 %; Eosinophils # (A) 0.2 k/uL (0-0.7); Eosinophils % (A) 3 %; HGB 13.9 gm/dL (13.0-17.5); Hypochromasia Marked; Lymphocytes # (A) 1.4 k/uL (1.0-4.8); Lymphocytes % (A) 18 %; MCH 27.8 pg (25.0-35.0); MCHC 30.3 g/dL (31.0-37.0); MCV 91.8 fL (80.0-100.0); Mean Platelet Volume 7.6; Monocytes # (A) 0.4 k/uL (0-1.0); Monocytes % (A) 5 %; Neutrophils # (A) 5.6 k/uL (1.3-7.7); Neutrophils % (A) 73 %; Platelet Count 283 k/uL (150-450); Poikilocytosis Slight; RBC 5.01 m/uL (4.30-5.90); RDW 16.5 % (11.5-15.5); WBC 7.7 k/uL (3.8-10.6)
--- NOTE | 2024-09-01 10:59 | XR ---
EXAMINATION TYPE: XR KUB DATE OF EXAM: 09/01/2024 10:51 AM CLINICAL HISTORY: Abdominal pain for 1.5 weeks. TECHNIQUE: Two Upright KUB images of the abdomen are obtained. COMPARISON: CT abdomen and pelvis January 20, 2024 FINDINGS: Scattered gas is seen in non-distended small bowel loops. Gas and fecal material is seen in non-distended colon. New left basilar opacity could reflect acute infiltrate and/or atelectasis. Ove rlying sternal wires are partially imaged. Prominent vascular calcification and stent of the right co mmon iliac artery is seen. No free air. IMPRESSION: Overall nonobstructive bowel gas pattern. Possible new left basilar acute infiltrate and/or atelectas is. Correlate clinically. [facility], , 09/01/2024 10:56 AM
[2024-09-01 11:00] LABS: ALT 12 U/L (4-49); African American GFR (CKD) >90 (>60 ml/min/1.73 sqM); Amylase 48 U/L (30-110); Anion Gap 7 mmol/L; Blood Urea Nitrogen 18 mg/dL (9-20); Calcium 9.4 mg/dL (8.4-10.2); Carbon Dioxide 30 mmol/L (22-30); Chloride 105 mmol/L (98-107); Glucose 138 mg/dL (74-99); Lipase 98 U/L (23-300); Non-African American GFR(CKD) 81 (>60 ml/min/1.73 sqM); Sodium 142 mmol/L (137-145); Total Bilirubin 0.6 mg/dL (0.2-1.3); Total Protein 7.2 g/dL (6.3-8.2)
[2024-09-01 11:02] LABS: AST 22 U/L (17-59); Alkaline Phosphatase 66 U/L (38-126); Potassium 5.2 mmol/L (3.5-5.1)
[2024-09-01 11:17] LABS: Appearance,Urine Clear (Clear); Bilirubin,Urine Negative (Negative); Blood,Urine Trace (Negative); Color,Urine Yellow; Glucose,Urine (UA) 1+ (Negative); Hyaline Casts,Urine 1 /lpf (0-2); Ketones,Urine Negative (Negative); Leukocyte Esterase,Urine Negative (Negative); Mucus,Urine Rare /hpf; Nitrite,Urine Negative (Negative); PH, Urine 5.5 (5.0-8.0); Protein,Urine 2+ (Negative); RBC,Urine 3 /hpf (0-5); Specific Gravity,Urine 1.019 (1.001-1.035); Squamous Epithelial Cell,Urine <1 /hpf (0-4); Urobilinogen,Urine <2.0 mg/dL (<2.0); WBC,Urine <1 /hpf (0-5)
--- NOTE | 2024-09-01 11:35 | XR ---
EXAMINATION TYPE: XR chest 1V portable DATE OF EXAM: 09/01/2024 COMPARISON: Prior chest x-ray November 10, 2022. Prior chest CT January 20, 2024 CLINICAL INDICATION: Male, 74 years old with history of Short of breath; TECHNIQUE: Single frontal view of the chest is obtained. FINDINGS: Overlying sternal wires and mediastinal clips are are redemonstrated. Lungs remain clear. There is mild cardiomegaly with atherosclerotic thoracic aorta. Osseous structures are intact. IMPRESSION: Mild cardiomegaly without acute pulmonary process. [facility], , 09/01/2024 11:33 AM
[2024-09-01 12:32] VITALS: BP 187/90; PULSE 80; RESP 22
== END 2024-09-01 12:21 | disposition home or self-care (01) ==
LOC: EC 09:30
DX: K59.00 Constipation, unspecified (principal); Z87.891 Personal history of nicotine dependence; Z88.0 Allergy status to penicillin; Z88.2 Allergy status to sulfonamides
CPT/HCPCS: 36415; 71045; 74018; 80053; 81001; 82150; 83605; 83690; 85025; 99284

== ENCOUNTER 2024-09-15 09:12 | Inpatient (IN) | payer MEDICARE ==
[2024-09-14 10:30] VITALS: BMI 36.3
[~2024-09-15 09:12] MED LIST changes: -ALPRAZolam 0.25 MG TAB PO PRN; -ALPRAZolam 0.5 MG TAB PO PRN; -HEPARIN SODIUM,PORCINE (1 ML) 2,500 UNIT in SODIUM CHLORIDE 0.9% 250 ML IRRIGATION PRN; -HEPARIN SODIUM,PORCINE 10,000 UNIT in SODIUM CHLORIDE 0.9% 1,000 ML IRRIGATION PRN; +HYDROmorphone 0.5 MG/0.5 ML SYRINGE IVP PRN; -ZOLPIDEM 5 MG TAB PO PRN
[2024-09-15] MEDS: IV FLUID CONTINUATION 1,000 ML IV ONE (09:41)
[2024-09-15 10:12] LABS: Glucose,Whole Blood 88 mg/dL (70-110)
[2024-09-15 10:34] LABS: INR 1.2 (<1.2); Prothrombin Time 12.8 sec (10.0-12.5)
--- NOTE | 2024-09-15 10:55 | P.PN ---
Progress Note - Text Patient seen and examined with Dr. Sarmiento in Pre-op. Patient is scheduled to undergo surgery today with Dr. Chand. Patient is at increased risk for perioperative cardiovascular complications. However there are no absolute contraindications for patient to proceed from a cardiac standpoint. Patient is to be continued on dual antiplatelet therapy with aspirin and Plavix secondary to stenting in May 2024. Please see full dictation by Dr. Sarmiento. Nurse practitioner note has been reviewed by physician. Signing provider agrees with the documented findings, assessment, and plan of care documented by LUMBER HANDLER as a scribe.
[2024-09-15] MEDS: DEXAMETHASONE SOD PHOSPHATE 4 MG/ML 1 ML VIAL IV ONE (11:06)
[2024-09-15] MEDS: ONDANSETRON 4 MG/2 ML VIAL IVP ONE (11:07)
[2024-09-15] MEDS ORDERED: HEPARIN SODIUM,PORCINE 10,000 UNIT/ML 1 ML VIAL ONE (12:44)
[2024-09-15] MEDS ORDERED: fentaNYL (PF) 50 MCG/ML 2 ML AMP ONE (12:44)
[2024-09-15] MEDS ORDERED: HEPARIN SODIUM,PORCINE 5,000 UNIT/ML 1 ML VIAL ONE (12:44)
[2024-09-15] MEDS ORDERED: ePHEDrine 50 MG/ML 1 ML VIAL ONE (12:44)
[2024-09-15] MEDS ORDERED: NEOSTIGMINE 1 MG/ML 10 ML VIAL ONE (12:44)
[2024-09-15] MEDS ORDERED: ROCURONIUM 10 MG/ML (5 ML VIAL) IV ONE (12:44)
[2024-09-15] MEDS ORDERED: PHENYLEPHRINE 10 MG/ML VIAL ONE (12:44)
[2024-09-15] MEDS ORDERED: ETOMIDATE 2 MG/ML 10 ML VIAL ONE (12:44)
[2024-09-15] MEDS ORDERED: GLYCOPYRROLATE 0.2 MG/ML 2 ML VIAL ONE (12:44)
[2024-09-15] MEDS ORDERED: HYDROmorphone (PF) 1 MG/ML ONE (12:44)
[2024-09-15] MEDS: ceFAZolin 3 GM in SODIUM CHLORIDE 0.9% 100 ML IVPB PRN (12:49)
[2024-09-15] MEDS: HEPARIN SODIUM,PORCINE 10,000 UNIT in SODIUM CHLORIDE 0.9% 1,000 ML IRRIGATION ONE (13:36)
[2024-09-15] MEDS: DEXTROSE 5%-LACTATED RINGERS 1,000 ML IV ONE (13:37)
[2024-09-15] MEDS: ceFAZolin 4 GM in SODIUM CHLORIDE 0.9% 1,000 ML IRRIGATION ONE (13:37)
[2024-09-15] MEDS: LACTATED RINGERS IRRIGATION ONE (13:38)
[2024-09-15] MEDS: HEPARIN SODIUM PORCINE IRRIGATION ONE (13:38)
[2024-09-15] MEDS: THROMBIN (BOVINE) 5,000 UNIT VIAL TOPICAL ONE (13:39)
[2024-09-15] MEDS: LACTATED RINGERS 500 ML IV ONE (14:46)
[2024-09-15] MEDS: LACTATED RINGERS 1,000 ML IV ONE (16:09)
[2024-09-15 16:45] LABS: Glucose,Whole Blood 88 mg/dL (70-110)
[2024-09-15] MEDS ORDERED: MORPHINE SULFATE 2 MG/ML SYRINGE IVP PRN (16:47)
--- NOTE | 2024-09-15 16:47 | P.OP ---
Date of Procedure: 09/15/24 Preoperative Diagnosis: Left lower extremity rest pain with chronic foot wound, [place] 5 Occluded left femoral tibial bypass Postoperative Diagnosis: Same Procedure(s) Performed: Re-exploration of the left groin Left Superficial femoral artery endarterectomy and patch angioplasty Left femoral to posterior tibial artery bypass with cryovein Anesthesia: LYLA Surgeon: Lyle Chand Shuttle Truck Driver #1: Eli Ly Estimated Blood Loss (ml): 200 Urine output (ml): 860 Pathology: none sent Condition: stable Disposition: PACU Indications for Procedure: 74-year-old gentleman with history of bilateral fem-tib bypass surgeries presented to the office secondary to acute worsening pain in the left lower extremity after recent heart catheterization and stenting. He states that the movement assembly final inspector attempted to access the left common femoral artery as well as the right common femoral artery during the heart catheterization and afterwards he noticed having significant increase in pain to his left foot. This went on for several weeks prior to him coming into the office. Once evaluated in the office it was noted that his bypass on the left had occluded and ABIs were under 0.4. Due to his outflow on the left being poor he went for an angiogram which demonstrated posterior tibial artery to the ankle and foot that was patent distal to his previous bypass. He presents today for femoral-tibial bypass. Description of Procedure: After written and informed consent was obtained from the patient all risks benefits and competitions were described the patient is brought to the operative suite and laid in a supine position. The area of the abdomen, left lower extremity was prepped and draped in usual sterile fashion after appropriate anesthetic was performed per the anesthesiologist. A timeout was performed in normal fashion. Antibiotics were administered prior to incision. A oblique incision was created at the left groin and dissection was carried down to the common femoral artery. The superficial femoral artery was dissected free in a circumferential manner and controlled with vessel loops. Due to the dense calcification and scar tissue at his previous surgical site it was decided to perform the bypass from the SFA distal to his existing bypass after good pulse was noted in the SFA. There was dense calcification noted as well and therefore decision was made to perform an endarterectomy and patch angioplasty. Prior to endarterectomy attention was placed to the distal aspect of the bypass at the posterior tibial artery at the ankle. A vertical incision was created at the medial malleolus overlying the posterior tibial artery and dissection was then carried down with electrocautery through the fascia to the posterior tibial artery. Posterior tibial artery was then dissected free in a circumferential manner and controlled with vessel loops. A tunnel was then created between the 2 incisions with a counterincision at the knee due to the length required to allow for tunneling of the CryoVein. Patient was then administered heparin. Proximal distal control was then obtained of the superficial femoral artery and arteriotomy was then created with 11 blade scalpel and extended with Pott Upton scissors. Due to the dense calcification endarterectomy was then performed with a [place] and inflow and outflow was assessed which were determined to be suitable. Patch angioplasty was then performed with 6-0 Prolene suture and bovine pericardial patch. Once completed the proximal aspect of the CryoVein was spatulated and patch automate was created followed by an end-to-side anastomosis was then created with 6-0 Prolene suture in a running fashion. The CryoVein was then marked and tunneled to the distal posterior tibial artery in normal fashion. Once completed control was released revealing good pulsatile blood flow through the bypass with no twisting of the CryoVein. Proximal distal control was then performed on the posterior tibial artery and arteriotomy was created with 11 blade scalpel and extended with Parrish Mettarikbaums scissors. The CryoVein was then spatulated and an end-to-side anastomosis was created with 6-0 Prolene suture in a running fashion. Once completed there was good pulsatile blood flow within the bypass and distal into the foot. All incisions were then irrigated with antibiotic solution. Hemostasis was assured with Gelfoam and thrombin. The incisions were then closed in a multilayer fashion after hemostasis was assured and the skin was then cleansed and groin incision was dressed with a Prevena incisional VAC and the distal incisions were dressed with glue. The patient tolerated procedure well was sent to PACU for recovery.
[2024-09-15] MEDS ORDERED: NITROGLYCERIN SL TABS 0.4 MG TAB SUBLINGUAL PRN (16:52)
[2024-09-15] MEDS: hydrALAZINE HCL 20 MG/ML 1 ML VIAL IVP STA (17:12)
[2024-09-15] MEDS: RIVAROXABAN 2.5 MG TABLET PO SCH (21:11)
[2024-09-15] MEDS: INSULIN DETEMIR (LEVEMIR) 100 UNIT/ML SYR SQ SCH (21:11)
[2024-09-15 21:36] LABS: Glucose,Whole Blood 92 mg/dL (70-110)
[2024-09-15] MEDS: HYDROcodone/APAP 5-325MG 1 EACH TAB PO PRN (22:55)
[2024-09-15] MEDS: LACTATED RINGERS 1,000 ML IV SCH (22:58)
[2024-09-16 06:11] LABS: Glucose,Whole Blood 73 mg/dL (70-110)
[2024-09-16] MEDS: METOPROLOL SUCCINATE (ER) 25 MG TAB.ER.24H PO SCH (08:43)
[2024-09-16] MEDS: ASPIRIN 81 MG PO SCH (08:43)
[2024-09-16] MEDS: FUROSEMIDE 20 MG TAB PO SCH (08:43)
[2024-09-16] MEDS: lisinopriL 20 MG TAB PO SCH (08:43)
[2024-09-16] MEDS: FENOFIBRATE 160 MG TAB PO SCH (08:43)
[2024-09-16] MEDS: CLOPIDOGREL 75 MG TAB PO SCH (08:43)
[2024-09-16] MEDS: ISOSORBIDE MONONITRATE ER 30 MG TAB.ER.24H PO SCH (08:43)
[2024-09-16 11:09] LABS: Glucose,Whole Blood 165 mg/dL (70-110)
[2024-09-16 12:47] LABS: African American GFR (CKD) 59 (>60 ml/min/1.73 sqM); Anion Gap 8 mmol/L; Blood Urea Nitrogen 36 mg/dL (9-20); Calcium 8.7 mg/dL (8.4-10.2); Carbon Dioxide 29 mmol/L (22-30); Chloride 99 mmol/L (98-107); Glucose 126 mg/dL (74-99); Non-African American GFR(CKD) 51 (>60 ml/min/1.73 sqM); Potassium 5.4 mmol/L (3.5-5.1); Sodium 136 mmol/L (137-145)
[2024-09-16] MEDS ORDERED: DEXTROSE 50% SYRINGE 50 ML IVP PRN ×2 (13:06)
--- NOTE | 2024-09-16 13:08 | P.CONS ---
History of Present Illness - Reason for Consult Consult date: 09/16/24 Medical management - History of Present Illness History of present illness; patient 74-year-old gentleman with past medical history significant for coronary artery disease, peripheral arterial disease with previous bilateral femoral-tibial bypass who presented the hospital for elective left femoral to posterior tibial artery bypass with CryoVein. Patient has been dealing with left lower extremity pain for the last few months. Patient underwent angiogram which demonstrated occlusion of his left femoral- tibial bypass with distal flow to his posterior tibial artery. Patient was seen outpatient by vascular surgery and was scheduled for the procedure on 09/15. Postoperatively internal medicine team were consulted for medical management REVIEW OF SYSTEMS: CONSTITUTIONAL: No fever, no malaise, no fatigue. HEENT: No recent visual problems or hearing problems. Denied any sore throat. CARDIOVASCULAR: No chest pain, orthopnea, PND, no palpitations, no syncope. PULMONARY: No shortness of breath, no cough, no hemoptysis. GASTROINTESTINAL: No diarrhea, no nausea, no vomiting, no abdominal pain. NEUROLOGICAL: No headaches, no weakness, no numbness. HEMATOLOGICAL: Denies any bleeding or petechiae. GENITOURINARY: Denies any burning micturition, frequency, or urgency. MUSCULOSKELETAL/RHEUMATOLOGICAL: Left leg pain ENDOCRINE: Denies any polyuria or polydipsia. The rest of the 14-point review of systems is negative. PHYSICAL EXAMINATION: GENERAL: The patient is alert and oriented x3, not in any acute distress. Well developed, well nourished. HEENT: Pupils are round and equally reacting to light. EOMI. No scleral icterus. No conjunctival pallor. Normocephalic, atraumatic. No pharyngeal erythema. No thyromegaly. CARDIOVASCULAR: S1 and S2 present. No murmurs, rubs, or gallops. PULMONARY: Chest is clear to auscultation, no wheezing or crackles. ABDOMEN: Soft, nontender, nondistended, normoactive bowel sounds. No palpable organomegaly. MUSCULOSKELETAL: No joint swelling or deformity. EXTREMITIES: No cyanosis, clubbing, or pedal edema. Groin access site seen, wound VAC in place NEUROLOGICAL: Gross neurological examination did not reveal any focal deficits. SKIN: No rashes. Assessment and plan Occluded left femoral tibial bypass s/p left femoral to posterior tibial artery bypass with CryoVein Left lower extremity rest pain with chronic foot wound Hypertension Hyperlipidemia Diabetes mellitus Hyperkalemia Monitor vital signs Monitor CBC Monitor CMP Continue telemetry monitoring Continue wound care Resume Xarelto per vascular surgery Continue aspirin, Plavix DC lisinopril secondary to hyperkalemia Blood sugar levels, add sliding scale insulin, resume Lantus Continue home meds Labs and medication were reviewed.. Continue same treatment. Continue with symptomatic treatment. Resume home medication. Monitor labs and vitals. DVT and GI prophylaxis. Further recommendations as per clinical course of the patient Dictation was produced using [employer] dictation software. please excuse any grammatical, word or spelling errors. Past Medical History Past Medical History: Coronary Artery Disease (CAD), Chest Pain / Angina, COPD, Diabetes Mellitus, Hyperlipidemia, Hypertension, Myocardial Infarction (ME), Osteoarthritis (OA), Vascular Disorder Additional Past Medical History / Comment(s): chest discomfort with walking stairs- mld,left foot cold to touch,Hx vertigo in the past Last Myocardial Infarction Date:: 2012 History of Any Multi-Drug Resistant Organisms: None Reported Past Surgical History: Appendectomy, Coronary Bypass/CABG, Heart Catheterization, Heart Catheterization With Stent Additional Past Surgical History / Comment(s): aortogram with srinivasa lower ext runoffs,Bilateral carotid endarterectomy, quadruple CABG 2016, 4 cardiac stents, hemmorhoidectomy, procedures to veins in legs. Past Anesthesia/Blood Transfusion Reactions: No Reported Reaction Additional Past Anesthesia/Blood Transfusion Reaction / Comm: Vertigo. no known hx of blood transfusion Date of Last Stent Placement:: ,10/2022 Smoking Status: Former smoker - Past Family History Father Family Medical History: Coronary Artery Disease (CAD), Myocardial Infarction (ME) Mother Family Medical History: Cancer, Renal Disease Brother(s) Family Medical History: Cancer Sister(s) Family Medical History: Cancer Son(s) Family Medical History: Cancer (patient has biological son and a stepson his biological son had thyroid cancer.) Medications and Allergies Home Medications Medication Instructions Recorded Confirmed Type gemfibroziL [Lopid] 600 mg PO AC-BID 11/27/20 09/14/24 History Nitroglycerin Sl Tabs [Nitrostat] 0.4 mg SL Q5M PRN 11/10/22 09/14/24 History Clopidogrel [Plavix] 75 mg PO DAILY #90 tab 11/11/22 09/14/24 Rx Furosemide [Lasix] 20 mg PO Q2D 05/07/23 09/14/24 History Metoprolol Succinate (ER) [Toprol 25 mg PO QAM 05/07/23 09/14/24 History XL] Insulin Degludec [Tresiba 80 units SQ HS 09/01/24 09/14/24 History Flextouch U-200 Pen] Isosorbide Mononitrate ER [Imdur] 30 mg PO QAM 09/01/24 09/14/24 History lisinopriL [Zestril] 20 mg PO QAM 09/01/24 09/14/24 History Aspirin 81 mg PO DAILY 09/15/24 09/15/24 History Allergies Allergy/AdvReac Type Severity Reaction Status Date / Time Penicillins Allergy Unknown Verified 09/15/24 09:51 Childhood Sulfa (Sulfonamide Allergy Rash/Hives Verified 09/15/24 09:51 Antibiotics) Physical Exam Vitals: Vital Signs Temp Pulse Pulse Resp BP BP BP 09/16/24 08:35 97.6 F 76 20 127/61 09/16/24 03:43 98.1 F 71 20 95/57 09/16/24 02:00 20 09/16/24 00:00 116/60 09/15/24 23:00 76 20 97/54 09/15/24 20:00 20 09/15/24 19:35 98.2 F 82 20 97/52 09/15/24 19:22 82 18 116/53 09/15/24 18:15 81 16 111/53 09/15/24 18:00 78 16 125/58 09/15/24 17:45 83 16 119/48 109/59 09/15/24 17:30 84 16 121/43 124/59 09/15/24 17:15 80 16 130/46 127/62 09/15/24 17:00 83 16 184/64 173/80 09/15/24 16:45 87 16 148/74 166/58 09/15/24 16:38 97.1 F L 89 16 149/60 Pulse Ox 09/16/24 08:35 92 L 09/16/24 03:43 93 L 09/16/24 02:00 09/16/24 00:00 09/15/24 23:00 92 L 09/15/24 20:00 09/15/24 19:35 90 L 09/15/24 19:22 97 09/15/24 18:15 94 L 09/15/24 18:00 96 09/15/24 17:45 97 09/15/24 17:30 93 L 09/15/24 17:15 94 L 09/15/24 17:00 95 09/15/24 16:45 95 09/15/24 16:38 95 Intake and Output 09/15/24 09/16/24 09/16/24 22:59 06:59 14:59 Intake Total 200 180 180 Output Total 1145 450 Balance -945 -270 180 Intake: IV 200 Oral 180 180 Output: Urine 945 450 Estimated Blood Loss 200 Other: Voiding Method Indwelling Catheter Indwelling Catheter Weight 125.5 kg Results CBC & Chem 7: 09/16/24 12:02 Labs: Abnormal Lab Results - Last 24 Hours (Table) 09/16/24 09/16/24 Range/Units 11:07 12:02 Sodium 136 L (137-145) mmol/L Potassium 5.4 H (3.5-5.1) mmol/L BUN 36 H (9-20) mg/dL Creatinine 1.35 H (0.66-1.25) mg/dL Glucose 126 H (74-99) mg/dL POC Glucose (mg/dL) 165 H (70-110) mg/dL
--- NOTE | 2024-09-16 15:01 | P.PN ---
Subjective Progress Note Date: 09/16/24 Status post left femoral to posterior tibial vein bypass graft. Objective - Vital Signs Vital signs: Vital Signs Temp 97.6 F 09/16/24 08:35 Pulse 76 09/16/24 08:35 Resp 20 09/16/24 08:35 BP 127/61 09/16/24 08:35 Pulse Ox 92 L 09/16/24 08:35 FiO2 Intake & Output 09/15/24 09/16/24 09/16/24 18:59 06:59 18:59 Intake Total 1554 180 600 Output Total 1145 450 Balance 409 -270 600 Weight 124.4 kg 125.5 kg Intake: IV 1554 Oral 180 600 Output: Urine 945 450 Estimated Blood Loss 200 Other: Voiding Method Indwelling Catheter - Exam Patient is sitting in a chair and indicates his foot feels significantly improved with more mobility and no discomfort. He also indicates that his foot is warm and sensation is intact. Palpable pulse was noted within the bypass graft. Foot is nontender and fully movable. I discussed with the patient my desire for physical therapy however it is my understanding that physical therapy is not available over the weekend. He does have a walker by his bed and I asked him to try to utilize this assistive device. If the patient does well hopefully the patient could be discharged [facility]. - Labs CBC & Chem 7: 09/16/24 12:02 Labs: Abnormal Lab Results - Last 24 Hours (Table) 09/16/24 09/16/24 Range/Units 11:07 12:02 Sodium 136 L (137-145) mmol/L Potassium 5.4 H (3.5-5.1) mmol/L BUN 36 H (9-20) mg/dL Creatinine 1.35 H (0.66-1.25) mg/dL Glucose 126 H (74-99) mg/dL POC Glucose (mg/dL) 165 H (70-110) mg/dL Assessment and Plan Assessment: Postop day #1 left femoral to posterior tibial vein bypass graft. Plan: 1: Encourage ambulation and use of walker. 2: Hopeful discharge in the morning depending on her ability to ambulate/mobilize. Time with Patient: Less than 30
[2024-09-16 16:28] LABS: Glucose,Whole Blood 141 mg/dL (70-110)
[2024-09-16] MEDS: INSULIN ASPART (NovoLOG) 100 UNIT/ML VIAL SQ SCH (17:03)
[2024-09-16 20:17] LABS: Glucose,Whole Blood 145 mg/dL (70-110)
[2024-09-17 06:13] LABS: Glucose,Whole Blood 72 mg/dL (70-110)
[2024-09-17 10:40] LABS: ALT 9 U/L (4-49); AST 19 U/L (17-59); African American GFR (CKD) 56 (>60 ml/min/1.73 sqM); Albumin 3.1 g/dL (3.5-5.0); Alkaline Phosphatase 58 U/L (38-126); Anion Gap 9 mmol/L; Blood Urea Nitrogen 44 mg/dL (9-20); Calcium 8.7 mg/dL (8.4-10.2); Carbon Dioxide 25 mmol/L (22-30); Chloride 100 mmol/L (98-107); Glucose 53 mg/dL (74-99); Non-African American GFR(CKD) 48 (>60 ml/min/1.73 sqM); Potassium 5.5 mmol/L (3.5-5.1); Sodium 134 mmol/L (137-145); Total Bilirubin 0.7 mg/dL (0.2-1.3); Total Protein 5.9 g/dL (6.3-8.2)
[2024-09-17 11:14] LABS: Glucose,Whole Blood 127 mg/dL (70-110)
[2024-09-17] MEDS: SODIUM ZIRCONIUM CYCLOSILICATE 10 GM PACKET PO ONE (11:47)
[2024-09-17 12:04] VITALS: BP 108/64; PULSE 81; RESP 20; TEMP 98.5
[2024-09-17] MEDS: INSULIN REGULAR 100 UNIT/ML VIAL (IV) IV ONE (12:30)
[2024-09-17] MEDS: DEXTROSE 50% SYRINGE 50 ML IVP ONE (12:31)
--- NOTE | 2024-09-17 12:46 | P.DS ---
Providers Date of admission: 09/15/24 09:12 Attending physician: Lyle Chand DO Consults: 09/15/24 16:51 Consult Physician Routine Consulting Provider: Xu Hoang Consult Reason/Comments: medical managment Do you want consulting provider notified?: Yes [facility] Course: Patient was admitted for surgical revascularization in the form of a left femoral to posterior tibial vein bypass graft utilizing CryoVein. This was performed in conjunction with a left common femoral thromboendarterectomy.. This was performed on September 15 without incident. Postoperatively the patient indicated his foot felt markedly improved with normal range of motion and resolution of neuropathy. His potassium remained on the relatively high side of normal however this is being treated medically and once potassium within acceptable range patient will be discharged. Procedures: Left femoral to posterior tibial vein bypass graft utilizing CryoVein in conjunction with left common femoral thromboendarterectomy. Patient Condition at Discharge: Good Plan - Discharge Summary Discharge Rx Participant: No New Discharge Prescriptions: No Action gemfibroziL [Lopid] 600 mg PO AC-BID Nitroglycerin Sl Tabs [Nitrostat] 0.4 mg SL Q5M PRN PRN Reason: Chest Pain Clopidogrel [Plavix] 75 mg PO DAILY #90 tab Furosemide [Lasix] 20 mg PO Q2D Metoprolol Succinate (ER) [Toprol XL] 25 mg PO QAM Insulin Degludec [Tresiba Flextouch U-200 Pen] 80 units SQ HS Isosorbide Mononitrate ER [Imdur] 30 mg PO QAM Aspirin 81 mg PO DAILY lisinopriL [Zestril] 20 mg PO QAM Discharge Medication List gemfibroziL [Lopid] 600 mg PO AC-BID 11/27/20 [History] Nitroglycerin Sl Tabs [Nitrostat] 0.4 mg SL Q5M PRN 11/10/22 [History] Clopidogrel [Plavix] 75 mg PO DAILY #90 tab 11/11/22 [Rx] Furosemide [Lasix] 20 mg PO Q2D 05/07/23 [History] Metoprolol Succinate (ER) [Toprol XL] 25 mg PO QAM 05/07/23 [History] Insulin Degludec [Tresiba Flextouch U-200 Pen] 80 units SQ HS 09/01/24 [History] Isosorbide Mononitrate ER [Imdur] 30 mg PO QAM 09/01/24 [History] lisinopriL [Zestril] 20 mg PO QAM 09/01/24 [History] Aspirin 81 mg PO DAILY 09/15/24 [History]
--- NOTE | 2024-09-17 13:55 | P.PN ---
Subjective Progress Note Date: 09/17/24 patient 74-year-old gentleman with past medical history significant for coronary artery disease, peripheral arterial disease with previous bilateral femoral-tibial bypass who presented the hospital for elective left femoral to posterior tibial artery bypass with CryoVein. Patient has been dealing with le ft lower extremity pain for the last few months. Patient underwent angiogram which demonstrated occlusion of his left femoral-tibial bypass with distal flow to his posterior tibial artery. Patient was seen outpatient by vascular surgery and was scheduled for the procedure on 09/15. Postoperatively internal medicine team were consulted for medical management REVIEW OF SYSTEMS: CONSTITUTIONAL: No fever, no malaise,. CARDIOVASCULAR: No chest pain, no palpitations, no syncope. PULMONARY: No shortness of breath, no cough, GASTROINTESTINAL: No diarrhea, no nausea, no vomiting, no abdominal pain. NEUROLOGICAL: No headaches, no weakness, PHYSICAL EXAMINATION: GENERAL: The patient is alert and oriented x3, not in any acute distress. Well developed, well nourished. HEENT: Pupils are round and equally reacting to light. EOMI. No scleral icterus. No conjunctival pallor. Normocephalic, atraumatic. No pharyngeal erythema. No thyromegaly. CARDIOVASCULAR: S1 and S2 present. No murmurs, rubs, or gallops. PULMONARY: Chest is clear to auscultation, no wheezing or crackles. ABDOMEN: Soft, nontender, nondistended, normoactive bowel sounds. No palpable organomegaly. MUSCULOSKELETAL: No joint swelling or deformity. EXTREMITIES: No cyanosis, clubbing, or pedal edema. Groin access site seen, wound VAC in place NEUROLOGICAL: Gross neurological examination did not reveal any focal deficits. SKIN: No rashes. Assessment and plan Occluded left femoral tibial bypass s/p left femoral to posterior tibial artery bypass with CryoVein Left lower extremity rest pain with chronic foot wound Hypertension Hyperlipidemia Diabetes mellitus Hyperkalemia Monitor vital signs Monitor CBC Monitor CMP Continue wound care Continue aspirin, Plavix, Xarelto per vascular surgery SHAR inhibitor discontinued secondary to hyperkalemia Continue current insulin regimen Vascular surgery on board Labs and medication were reviewed.. Continue same treatment. Continue with symptomatic treatment. Resume home medication. Monitor labs and vitals. DVT and GI prophylaxis. Further recommendations as per clinical course of the patient Dictation was produced using [employer] dictation software. please excuse any grammatical, word or spelling errors. Objective - Vital Signs Vital signs: Vital Signs Temp 98.1 F 09/17/24 08:38 Pulse 79 09/17/24 08:38 Resp 16 09/17/24 08:38 BP 120/63 09/17/24 08:38 Pulse Ox 92 L 09/17/24 08:38 FiO2 Intake & Output 09/16/24 09/17/24 09/17/24 18:59 06:59 18:59 Intake Total 780 240 Output Total 350 200 Balance 430 -200 240 Weight 124.6 kg Intake: Oral 780 240 Output: Urine 350 200 Other: Voiding Method Urinal Toilet External Catheter Urinal # Voids 1 1 - Labs CBC & Chem 7: 09/16/24 12:02 Labs: Abnormal Lab Results - Last 24 Hours (Table) 09/16/24 09/16/24 09/16/24 Range/Units 11:07 12:02 16:26 Sodium 136 L (137-145) mmol/L Potassium 5.4 H (3.5-5.1) mmol/L BUN 36 H (9-20) mg/dL Creatinine 1.35 H (0.66-1.25) mg/dL Glucose 126 H (74-99) mg/dL POC Glucose (mg/dL) 165 H 141 H (70-110) mg/dL Hemoglobin A1c (<=6.0) % 09/16/24 09/17/24 Range/Units 20:16 06:04 Sodium (137-145) mmol/L Potassium (3.5-5.1) mmol/L BUN (9-20) mg/dL Creatinine (0.66-1.25) mg/dL Glucose (74-99) mg/dL POC Glucose (mg/dL) 145 H (70-110) mg/dL Hemoglobin A1c 7.3 H (<=6.0) %
--- NOTE | 2024-09-19 10:48 | P.ANPRN ---
Procedure Note - Anesthesia - Invasive Line Right Arterial Line Time Out Performed: Yes Date of Procedure: 09/15/24 Time of Procedure: 11:17 Location of Patient: EP Preparation: Sterile Prep, Sterile Dressing Arterial Line Location: Radial Ultrasound Used: No Purpose - Visualization and Identification of Vasculature: No Image Stored and Saved: No Narrative: Invasive line placement per sterile protocol utilized.
== END 2024-09-17 14:27 | disposition home or self-care (01) | DRG 254 ==
LOC: 2ORMAIN 09:12 → 3SCARD 17:39
PROVIDERS: ADMIT Surgery; ATTEND Surgery
PROC: 04CL0ZZ Extirpation of Matter from Left Femoral Artery, Open Approach (ICD-10-PCS; principal; 2024-09-15 11:30)
DX: E11.51 Type 2 diabetes mellitus with diabetic peripheral angiopathy without gangrene (principal); I70.244 Atherosclerosis of native arteries of left leg with ulceration of heel and midfoot; I10 Essential (primary) hypertension; J44.9 Chronic obstructive pulmonary disease, unspecified; E78.5 Hyperlipidemia, unspecified; E87.5 Hyperkalemia; I25.10 Atherosclerotic heart disease of native coronary artery without angina pectoris; G62.9 Polyneuropathy, unspecified; Z79.4 Long term (current) use of insulin; Z79.02 Long term (current) use of antithrombotics/antiplatelets; Z79.82 Long term (current) use of aspirin; I25.2 Old myocardial infarction; Z79.899 Other long term (current) drug therapy; Z87.891 Personal history of nicotine dependence; Z95.1 Presence of aortocoronary bypass graft; Z95.5 Presence of coronary angioplasty implant and graft
CPT/HCPCS: 80048; 80053; 83036; 84132; 85610; 86850; 86900; 86901

== ENCOUNTER 2024-10-24 20:07 | Inpatient (IN) | payer MEDICARE ==
[2024-10-24 20:45] LABS: Anisocytosis Slight; Basophils % (A) 0 %; Eosinophils # (A) 0.2 k/uL (0-0.7); Eosinophils % (A) 2 %; HCT 43.3 % (39.0-53.0); HGB 12.2 gm/dL (13.0-17.5); Hypochromasia Marked; Lymphocytes # (A) 1.1 k/uL (1.0-4.8); Lymphocytes % (A) 12 %; MCH 25.7 pg (25.0-35.0); MCHC 28.1 g/dL (31.0-37.0); MCV 91.4 fL (80.0-100.0); Mean Platelet Volume 7.6; Monocytes # (A) 0.4 k/uL (0-1.0); Monocytes % (A) 4 %; Neutrophils # (A) 7.5 k/uL (1.3-7.7); Neutrophils % (A) 81 %; Platelet Count 387 k/uL (150-450); Poikilocytosis Slight; RBC 4.74 m/uL (4.30-5.90); RDW 17.2 % (11.5-15.5); WBC 9.2 k/uL (3.8-10.6)
[2024-10-24 20:54] LABS: INR 1.5 (<1.2); Partial Thromboplastin Time 26.2 sec (22.0-30.0); Prothrombin Time 15.2 sec (10.0-12.5)
[2024-10-24 21:01] LABS: ALT 12 U/L (4-49); AST 24 U/L (17-59); African American GFR (CKD) 66 (>60 ml/min/1.73 sqM); Albumin 3.5 g/dL (3.5-5.0); Alkaline Phosphatase 79 U/L (38-126); Anion Gap 7 mmol/L; Blood Urea Nitrogen 49 mg/dL (9-20); Calcium 8.6 mg/dL (8.4-10.2); Carbon Dioxide 29 mmol/L (22-30); Chloride 103 mmol/L (98-107); Glucose 120 mg/dL (74-99); Magnesium 2.3 mg/dL (1.6-2.3); Non-African American GFR(CKD) 57 (>60 ml/min/1.73 sqM); Potassium 4.4 mmol/L (3.5-5.1); Sodium 139 mmol/L (137-145); Total Bilirubin 0.6 mg/dL (0.2-1.3); Total Protein 6.6 g/dL (6.3-8.2)
--- NOTE | 2024-10-24 21:22 | XR ---
EXAMINATION TYPE: XR chest 2V DATE OF EXAM: 10/24/2024 8:49 PM COMPARISON: Chest radiographs from 09/01/2024 CLINICAL INDICATION: Male, 74 years old with history of Chest Pain; [facility] TECHNIQUE: XR chest 2V Frontal and lateral views of the chest. FINDINGS: Lungs/Pleura: There is no evidence of pleural effusion, focal consolidation, or pneumothorax. Pulmonary vascularity: Unremarkable. Heart/mediastinum: Cardiomediastinal silhouette is enlarged and stable. Atherosclerotic calcificatio ns are seen in the aorta. Musculoskeletal: No acute osseous pathology. Midline sternotomy wires are noted. IMPRESSION: Interstitial lung disease changes without acute pulmonary process. [facility], , 10/24/2024 9:20 PM
[2024-10-24] MEDS: NITROGLYCERIN OINT 1 INCH/GM PACKET TOPICAL STA (21:31)
--- NOTE | 2024-10-24 21:43 | ED ---
Chest Pain HPI - General Chief Complaint: Chest Pain Stated Complaint: Chest Pain,Sob Time Seen by Provider: 10/24/24 20:24 Source: patient, family, RN notes reviewed Mode of arrival: wheelchair Limitations: no limitations - History of Present Illness Initial Comments: 74-year-old male presents emergency department complaining of chest pain. Patient states that he has significant cardiac history states he said bypass surgery with multiple stents after. He is also had recent stent placement in his left leg he is on Xarelto, Plavix. Patient states that he feels like he is having chest pain consistent with prior blockages. Patient also feels short of breath. Patient denies any fevers or chills patient states he is also had gallbladder surgery. Patient denies any recent URI symptoms. He has taken his Xarelto as directed. - Related Data Home Medications Medication Instructions Recorded Confirmed gemfibroziL [Lopid] 600 mg PO AC-BID 11/27/20 09/14/24 Nitroglycerin Sl Tabs [Nitrostat] 0.4 mg SL Q5M PRN 11/10/22 09/14/24 Furosemide [Lasix] 20 mg PO Q2D 05/07/23 09/14/24 Metoprolol Succinate (ER) [Toprol 25 mg PO QAM 05/07/23 09/14/24 XL] Insulin Degludec [Tresiba 80 units SQ HS 09/01/24 09/14/24 Flextouch U-200 Pen] Isosorbide Mononitrate ER [Imdur] 30 mg PO QAM 09/01/24 09/14/24 lisinopriL [Zestril] 20 mg PO QAM 09/01/24 09/14/24 Aspirin 81 mg PO DAILY 09/15/24 09/15/24 Previous Rx's Medication Instructions Recorded Clopidogrel [Plavix] 75 mg PO DAILY #90 tab 11/11/22 Allergies Allergy/AdvReac Type Severity Reaction Status Date / Time Penicillins Allergy Unknown Verified 10/24/24 20:14 Childhood Sulfa (Sulfonamide Allergy Rash/Hives Verified 10/24/24 20:14 Antibiotics) Review of Systems ROS Statement: Those systems with pertinent positive or pertinent negative responses have been documented in the HPI. ROS Other: All systems not noted in ROS Statement are negative. EKG Findings - EKG Comments: EKG Findings:: EKG performed at 20: 31 sinus rhythm rate of 78 AK 178 QRS 96 QT/QTc 381/414 there is no significant ST elevation noted. EKG performed at 21: 44 sinus rhythm with a rate of 73 AK 177 QRS 1 3 QT/QTc 395/[address] elevation there is mild depression in precordial leads - EKG Results: EKG: interpreted by ERMD Past Medical History Past Medical History: Coronary Artery Disease (CAD), Chest Pain / Angina, COPD, Diabetes Mellitus, Hyperlipidemia, Hypertension, Myocardial Infarction (NC), Osteoarthritis (OA), Vascular Disorder Additional Past Medical History / Comment(s): chest discomfort with walking stairs- mld,left foot cold to touch,Hx vertigo in the past Last Myocardial Infarction Date:: 2012 History of Any Multi-Drug Resistant Organisms: None Reported Past Surgical History: Appendectomy, Coronary Bypass/CABG, Heart Catheterization, Heart Catheterization With Stent Additional Past Surgical History / Comment(s): aortogram with srinivasa lower ext runoffs,Bilateral carotid endarterectomy, quadruple CABG 2016, 4 cardiac stents, hemmorhoidectomy, procedures to veins in legs. Past Anesthesia/Blood Transfusion Reactions: No Reported Reaction Additional Past Anesthesia/Blood Transfusion Reaction / Comment(s): Vertigo. no known hx of blood transfusion Date of Last Stent Placement:: ,10/2022 Past Psychological History: No Psychological Hx Reported Smoking Status: Former smoker Past Alcohol Use History: None Reported Past Drug Use History: None Reported - Past Family History Father Family Medical History: Coronary Artery Disease (CAD), Myocardial Infarction ([place]) Mother Family Medical History: Cancer, Renal Disease Brother(s) Family Medical History: Cancer Sister(s) Family Medical History: Cancer Son(s) Family Medical History: Cancer (patient has biological son and a stepson his biological son had thyroid cancer.) General Exam Limitations: no limitations Course Vital Signs 10/24/24 10/24/24 20:14 21:35 Temperature 98.5 F Pulse Rate 87 75 Respiratory 18 16 Rate Blood Pressure 107/52 140/78 O2 Sat by Pulse 83 L 96 Oximetry Chest Pain MDM - MDM Was pt. sent in by a medical professional or institution (, PA, [employer], urgent care, hospital, or assisted...) When possible be specific @ -No Did you speak to anyone other than the patient for history (EMS, parent, family, police, friend...)? What history was obtained from this source @ -No Did you review nursing and triage notes (agree or disagree)? Why? @ -I reviewed and agree with nursing and triage notes Were old charts reviewed (outside hosp., previous admission, EMS record, old EKG, old radiological studies, urgent care reports/EKG's, assisted records)? Report findings @ -No old charts were reviewed Differential Diagnosis (chest pain, altered mental status, abdominal pain women, abdominal pain men, vaginal bleeding, weakness, fever, dyspnea, syncope, headache, dizziness, GI bleed, back pain, seizure, CVA, palpatations, mental health, musculoskeletal)? @ -[Differential Chest Pain: Stable Angina, Unstable Angina, STEMI, NSTEMI Aortic Dissection, Pneumothorax, Musculoskeletal, Esophageal Spasm GERD, Cholecystitis, Pancreatitis, Zoster, this is not meant to be an all-inclusive list. EKG interpreted by me (3pts min.). @ -As above X-rays interpreted by me (1pt min.). @ -Chest x-ray showed mild COPD changes, interstitial CT interpreted by me (1pt min.). @ -None done U/S interpreted by me (1pt. min.). @ -None done What testing was considered but not performed or refused? (CT, X-rays, U/S, labs)? Why? @ -None What meds were considered but not given or refused? Why? @ -None Did you discuss the management of the patient with other professionals (professionals i.e. , PA, [employer], lab, RT, psych nurse, nursing home social worker, qc scientist, teacher, biosecurity officer, director of casework department)? Give summary @ -[facility] for admission covering for Dr. Dr. Hoang. Was smoking cessation discussed for >3mins.? @ -No Was critical care preformed (if so, how long)? @ -[35 minutes Were there social determinants of health that impacted care today? How? (Homelessness, low income, unemployed, alcoholism, drug addiction, transportation, low edu. Level, literacy, decrease access to med. care, assisted, rehab)? @ -No Was there de-escalation of care discussed even if they declined (Discuss DNR or withdrawal of care, Hospice)? DNR status @ -No What co-morbidities impacted this encounter? (DM, HTN, Smoking, COPD, CAD, Cancer, CVA, ARF, Chemo, Hep., AIDS, mental health diagnosis, sleep apnea, morbid obesity)? @ -None Was patient admitted / discharged? Hospital course, mention meds given and route, prescriptions, significant lab abnormalities, going to OR and other pertinent info. @ -Admitted patient presented for complaints of chest pain he did take nitro which alleviated symptoms Nitropaste was applied. Patient has significant cardiac history including CABG total stents and COPD history. Patient is currently anticoagulated on Xarelto, Plavix. Patient found to have NSTEMI with a troponin of 0.393 patient will be kept n.p.o. patient did have repeat EKG without acute changes. Patient is currently symptom-free admitted for cardiology evaluation and further treatment. Undiagnosed new problem with uncertain prognosis? @ -No Drug Therapy requiring intensive monitoring for toxicity (Heparin, Nitro, Insulin, Cardizem)? @ -No Were any procedures done? @ -No Diagnosis/symptom? @ -NSTEMI Acute, or Chronic, or Acute on Chronic? @ -[Acute Uncomplicated (without systemic symptoms) or Complicated (systemic symptoms)? @ -Complicated Side effects of treatment? @ -No Exacerbation, Progression, or Severe Exacerbation? @ -No Poses a threat to life or bodily function? How? (Chest pain, [place], NC, pneumonia, PE, COPD, DKA, ARF, appy, cholecystitis, CVA, Diverticulitis, Homicidal, Suicidal, threat to staff... and all critical care pts) @ -Yes ACS risk to cardiac function Disposition Clinical Impression: NSTEMI (non-ST elevated myocardial infarction) Disposition: ADMITTED IP TO THIS HOSP Condition: Fair Referrals: David Palomares MD [Primary Care Provider] - 1-2 days Time of Disposition: 21:42
[2024-10-24] MEDS: ASPIRIN 81 MG PO STA (21:52)
[2024-10-24] MEDS: NITROGLYCERIN OINT 1 INCH/GM PACKET TOPICAL SCH (23:00)
[2024-10-25] MEDS: METOPROLOL SUCCINATE (ER) 25 MG TAB.ER.24H PO SCH (08:47)
[2024-10-25] MEDS: CLOPIDOGREL 75 MG TAB PO SCH (08:47)
[2024-10-25] MEDS: ASPIRIN 81 MG PO SCH (08:47)
[2024-10-25] MEDS: DAPAGLIFLOZIN PROPANEDIOL 10 MG TABLET PO SCH (08:47)
[2024-10-25] MEDS: RANOLAZINE 500 MG TAB.ER.12H PO SCH (08:47)
[2024-10-25] MEDS: FUROSEMIDE 10 MG/ML 4 ML VIAL IV SCH (08:48)
[2024-10-25] MEDS: ISOSORBIDE MONONITRATE ER 30 MG TAB.ER.24H PO SCH (08:48)
[2024-10-25 08:51] LABS: Anisocytosis Slight; HCT 45.2 % (39.0-53.0); HGB 12.5 gm/dL (13.0-17.5); Hypochromasia Marked; MCH 25.5 pg (25.0-35.0); MCHC 27.5 g/dL (31.0-37.0); MCV 92.8 fL (80.0-100.0); Mean Platelet Volume 7.9; Platelet Count 412 k/uL (150-450); RBC 4.88 m/uL (4.30-5.90); RDW 16.8 % (11.5-15.5); WBC 8.5 k/uL (3.8-10.6)
[2024-10-25] MEDS: HEPARIN SOD,PORK IN 0.45% NACL 25,000 UNIT in 0.45% NACL 1 250ML.BAG IV SCH (08:51)
[2024-10-25] MEDS: HEPARIN SODIUM 1,000 UN/ML (10ML VL) IV ONE (08:58)
[2024-10-25] MEDS ORDERED: ASPIRIN 325 MG TAB PO SCH (09:00)
[2024-10-25] MEDS ORDERED: FUROSEMIDE 20 MG TAB PO SCH (09:00)
[2024-10-25 09:04] LABS: INR 1.3 (<1.2); Partial Thromboplastin Time 27.5 sec (22.0-30.0)
[2024-10-25 10:25] LABS: Anisocytosis (M) Present; Eosinophils # (M) 0.09 k/uL (0-0.7); Lymphocytes # (M) 1.02 k/uL (1.0-4.8); Monocytes # (M) 0.34 k/uL (0-1.0); Neutrophils # (M) 7.06 k/uL (1.3-7.7); Neutrophils % (M) 83 %; Nucleated Red Blood Cells 0 /100 WBC (0-0); Poikilocytosis (M) Present; Polychromasia Present; Total Cells Counted 100
--- NOTE | 2024-10-25 11:49 | P.CRDCN ---
History of Present Illness History of present illness: HISTORY OF PRESENT ILLNESS: This is a 74-year-old male with a past medical history significant for coronary artery disease with previous CABG and subsequent stenting, hypertension, hyperl ipidemia, former nicotine dependence, and carotid stenosis with previous bilateral intervention. Patient follows in the office with Dr. Sarmiento. We have been asked to see the patient in consultation for non-STEMI. Patient examined at the bedside in the emergency room. Patient states he has been having chest discomfort and shortness of breath for the past 2 to 3 days. He states the pain is in the middle of his chest. He denied any radiation of the pain. He states that he took nitro at home with relief of his pain. He states he has had not had any further pain since coming to the emergency room. Patient was found to have elevated troponins and was started on IV heparin. DIAGNOSTICS: - EKG reveals this mechanism with ST depression in V3V6. Repeat EKG sinus mechanism with T wave inversions in V3V6. - Chest xray interstitial lung disease changes without acute pulmonary process - Laboratory data: WBC 8.5. Hemoglobin 12.5. Platelet count 412. Sodium 139. Potassium 4.4. BUN 49. Creatinine 1.24. Troponin 0.393. 0.454. 0.504. - Current home cardiac medications include aspirin 81 mg daily, Plavix 75 mg daily, Lasix 20 mg daily, Imdur 30 mg daily, metoprolol succinate 25 mg daily, Xarelto 2.5 mg twice a day - Most recent echocardiogram obtained in October 2022 revealed ejection fraction 60 to 65%, mild mitral stenosis, mild to moderate mitral regurgitation, trace to mild tricuspid regurgitation small circumferential pericardial effusion. - Cardiac catheterization history: May 2024 with stenting of the SVG to diagonal REVIEW OF SYSTEMS: At the time of my exam: CONSTITUTIONAL: Denies fever or chills. HEENT: Denies blurred vision, vision changes, or eye pain. Denies hemoptysis CARDIOVASCULAR: Denies chest pain. Denies orthopnea. Denies PND. Denies palpitations RESPIRATORY: Denies shortness of breath. GASTROINTESTINAL: Denies abdominal pain. Denies nausea or vomiting. HEMATOLOGIC: Denies bleeding disorders. GENITOURINARY: Denies any blood in urine. SKIN: Denies pruitis. Denies rash. PHYSICAL EXAM: VITAL SIGNS: Reviewed. GENERAL: Well-developed in no acute distress. HEENT: Head is normocephalic. Pupils are equal, round. Sclerae anicteric. Mucous membranes of the mouth are moist. Neck supple. No JVD or thyromegaly LUNGS: Respirations even and unlabored. Lungs essentially clear to auscultation bilaterally. HEART: Regular rate and rhythm. S1 and S2 heard. ABDOMEN: Soft. Nondistended. Nontender. EXTREMITIES: Normal range of motion. No clubbing or cyanosis. Peripheral pulses intact. No lower extremity edema NEUROLOGIC: Awake and alert. Oriented x 3. ASSESSMENT: Non-STEMI Acute on chronic heart failure with preserved EF 60 to 65% Coronary artery disease with previous four-vessel CABG in 2017 with subsequent stenting, most recently SVG to diagonal, 05/2024 Hypertension Hyperlipidemia Former nicotine dependence Carotid stenosis with previous bilateral intervention PLAN: Obtain 2D echo to assess cardiac structure and function Continue IV heparin. Hold low-dose Xarelto. Begin IV Lasix 40 mg every 12 hours Daily weights, accurate intake and output, monitoring of kidney function Continue aspirin, atorvastatin, Imdur, and metoprolol Add Ranexa 500 mg twice a day Add Farxiga 10 mg daily Further recommendations pending patient course Nurse practitioner note has been reviewed by physician. Signing provider agrees with the documented findings, assessment, and plan of care documented by CORDUROY BRUSHER OPERATOR as a scribe. Past Medical History Past Medical History: Coronary Artery Disease (CAD), Chest Pain / Angina, COPD, Diabetes Mellitus, Hyperlipidemia, Hypertension, Myocardial Infarction ([place]), Osteoarthritis (OA), Vascular Disorder Additional Past Medical History / Comment(s): chest discomfort with walking stairs- mld,left foot cold to touch,Hx vertigo in the past Last Myocardial Infarction Date:: 2012 History of Any Multi-Drug Resistant Organisms: None Reported Past Surgical History: Appendectomy, Coronary Bypass/CABG, Heart Catheterization, Heart Catheterization With Stent Additional Past Surgical History / Comment(s): aortogram with srinivasa lower ext runoffs,Bilateral carotid endarterectomy, quadruple CABG 2017, 4 cardiac stents, hemmorhoidectomy, procedures to veins in legs. Past Anesthesia/Blood Transfusion Reactions: No Reported Reaction Additional Past Anesthesia/Blood Transfusion Reaction / Comment(s): Vertigo. no known hx of blood transfusion Date of Last Stent Placement:: ,10/2022 Past Psychological History: No Psychological Hx Reported Smoking Status: Former smoker Past Alcohol Use History: None Reported Past Drug Use History: None Reported - Past Family History Father Family Medical History: Coronary Artery Disease (CAD), Myocardial Infarction (SC) Mother Family Medical History: Cancer, Renal Disease Brother(s) Family Medical History: Cancer Sister(s) Family Medical History: Cancer Son(s) Family Medical History: Cancer (patient has biological son and a stepson his biological son had thyroid cancer.) Medications and Allergies Home Medications Medication Instructions Recorded Confirmed Type gemfibroziL [Lopid] 600 mg PO AC-BID 11/27/20 10/25/24 History Nitroglycerin Sl Tabs [Nitrostat] 0.4 mg SL Q5M PRN 11/10/22 10/25/24 History Clopidogrel [Plavix] 75 mg PO DAILY #90 tab 11/11/22 10/25/24 Rx Furosemide [Lasix] 20 mg PO DAILY 05/07/23 10/25/24 History Metoprolol Succinate (ER) [Toprol 25 mg PO QAM 05/07/23 10/25/24 History XL] Insulin Degludec [Tresiba 80 units SQ HS 09/01/24 10/25/24 History Flextouch U-200 Pen] Isosorbide Mononitrate ER [Imdur] 30 mg PO QAM 09/01/24 10/25/24 History Aspirin 81 mg PO DAILY 09/15/24 10/25/24 History Albuterol Inhaler [Ventolin Hfa 2 puff INHALATION RT-QID PRN 10/25/24 10/25/24 History Inhaler] Gayatri Hives 180 mg PO DAILY 10/25/24 10/25/24 History Ciprofloxacin HCl [Cipro] 500 mg PO DIRECTED 10/25/24 10/25/24 History Doxazosin [Cardura] 1 mg PO HS 10/25/24 10/25/24 History Rivaroxaban [Xarelto] 2.5 mg PO BID 10/25/24 10/25/24 History Sodium Polystyrene Sulfonate 15 gm PO DAILY 10/25/24 10/25/24 History [Kayexalate] Allergies Allergy/AdvReac Type Severity Reaction Status Date / Time Penicillins Allergy Unknown Verified 10/25/24 07:39 Childhood Sulfa (Sulfonamide Allergy Rash/Hives Verified 10/25/24 07:39 Antibiotics) Physical Exam Vitals: Vital Signs Temp Pulse Resp BP Pulse Ox 10/25/24 11:21 75 20 115/65 98 10/25/24 09:37 78 16 120/70 98 10/25/24 05:26 97.7 F 63 12 108/57 91 L 10/25/24 03:50 72 15 92 L 10/25/24 00:10 98.1 F 72 15 150/75 93 L 10/24/24 21:35 75 16 140/78 96 10/24/24 20:14 98.5 F 87 18 107/52 83 L Intake and Output 10/24/24 10/25/24 10/25/24 22:59 06:59 14:59 Output Total 320 Balance -320 Output: Urine 320 Other: # Voids 2 Weight 120.202 kg Results 10/25/24 08:39 10/24/24 20:40 Cardiac Enzymes 10/24/24 10/24/24 10/24/24 Range/Units 20:40 20:40 22:41 AST 24 (17-59) U/L Troponin I 0.393 H* 0.454 H* (0.000-0.034) ng/mL 10/25/24 Range/Units 01:42 AST (17-59) U/L Troponin I 0.504 H* (0.000-0.034) ng/mL Coagulation 10/24/24 10/25/24 Range/Units 20:40 08:39 PT 15.2 H 14.0 H (10.0-12.5) sec APTT 26.2 27.5 (22.0-30.0) sec CBC 10/24/24 10/25/24 Range/Units 20:28 08:39 WBC 9.2 8.5 (3.8-10.6) k/uL RBC 4.74 4.88 (4.30-5.90) m/uL Hgb 12.2 L 12.5 L (13.0-17.5) gm/dL Hct 43.3 45.2 (39.0-53.0) % Plt Count 387 412 (150-450) k/uL Comprehensive Metabolic Panel 10/24/24 Range/Units 20:40 Sodium 139 (137-145) mmol/L Potassium 4.4 (3.5-5.1) mmol/L Chloride 103 (98-107) mmol/L Carbon Dioxide 29 (22-30) mmol/L BUN 49 H (9-20) mg/dL Creatinine 1.24 (0.66-1.25) mg/dL Glucose 120 H (74-99) mg/dL Calcium 8.6 (8.4-10.2) mg/dL AST 24 (17-59) U/L ALT 12 (4-49) U/L Alkaline Phosphatase 79 (38-126) U/L Total Protein 6.6 (6.3-8.2) g/dL Albumin 3.5 (3.5-5.0) g/dL Current Medications Generic Name Dose Route Start Last Admin Trade Name Freq PRN Reason Stop Dose Admin Albuterol/Ipratropium 3 ml 10/24/24 21:56 Ipratropium-Albuterol 3 Ml Neb INHALATION RT-Q2H PRN Shortness Of Breath Or Wheezing Aspirin 81 mg 10/25/24 09:00 10/25/24 08:47 Aspirin 81 Mg PO 81 mg DAILY SANG Administration Atorvastatin Calcium 80 mg 10/25/24 21:00 Atorvastatin 80 Mg Tab PO HS SANG Clopidogrel Bisulfate 75 mg 10/25/24 09:00 10/25/24 08:47 Clopidogrel 75 Mg Tab PO 75 mg DAILY SANG Administration Dapagliflozin 10 mg 10/25/24 09:00 10/25/24 08:47 Dapagliflozin Propanediol 10 Mg Tablet PO 10 mg DAILY SANG Administration Furosemide 40 mg 10/25/24 09:00 10/25/24 08:48 Furosemide 10 Mg/Ml 4 Ml Vial IV 40 mg Q12HR SANG Administration Heparin Sodium (Porcine) 0 unit 10/25/24 08:17 Heparin Sodium 1,000 Un/Ml (10ml Vl) IV PER PROTOCOL PRN Low PTT Protocol Heparin Sodium/Sodium Chloride 250 mls @ 10.001 mls/hr 10/25/24 08:30 10/25/24 08:51 25,000 unit/ Sodium Chloride IV 8.32 units/kg/hr .Q24H SANG 10.001 mls/hr Administration Protocol 8.32 UNITS/KG/HR Isosorbide Mononitrate 30 mg 10/25/24 09:00 10/25/24 08:48 Isosorbide Mononitrate Er 30 Mg Tab.Er.24h PO 30 mg QAM SANG Administration Metoprolol Succinate 25 mg 10/25/24 09:00 10/25/24 08:47 Metoprolol Succinate (Er) 25 Mg Tab.Er.24h PO 25 mg QAM SANG Administration Ranolazine 500 mg 10/25/24 09:00 10/25/24 08:47 Ranolazine 500 Mg Tab.Er.12h PO 500 mg Q12HR SANG Administration Intake and Output 10/24/24 10/25/24 10/25/24 22:59 06:59 14:59 Output Total 320 Balance -320 Output: Urine 320 Other: # Voids 2 Weight 120.202 kg 10/25/24 08:39 10/24/24 20:40
--- NOTE | 2024-10-25 12:19 | P.HPIM ---
History of Present Illness 74-year-old male came with complaints of chest pressure-like sensation in the middle of the chest going on for 2 to 3 days denied any radiation associated with some shortness of breath. Denied any lightheadedness or diaphoresis. Bee ent has extensive cardiac history patient had a CABG in the past subsequent stenting. Patient had a stent in May 2004 and recent echocardiogram showed 60 to 65% EF. Patient has some chronic coronary occlusive disease which is being medically managed. Patient has mild elevated troponins of 0.504. EKG showing ST depressions in V3 V6 and some T wave inversions which are worse than her previous EKGs. REVIEW OF SYSTEMS: All other systems are negative except those mentioned in the HPI PHYSICAL EXAMINATION: GENERAL: The patient is alert and oriented x3, not in any acute distress. Well developed, well nourished. Obese HEENT: Pupils are round and equally reacting to light. EOMI. No scleral icterus. No conjunctival pallor. Normocephalic, atraumatic. No pharyngeal erythema. No thyromegaly. CARDIOVASCULAR: S1 and S2 present. No murmurs, rubs, or gallops. PULMONARY: Chest is clear to auscultation, no wheezing or crackles. ABDOMEN: Soft, nontender, nondistended, normoactive bowel sounds. No palpable organomegaly. MUSCULOSKELETAL: No joint swelling or deformity. EXTREMITIES: No cyanosis, clubbing, or pedal edema. NEUROLOGICAL: Gross neurological examination did not reveal any focal deficits. SKIN: No rashes. Assessment and plan -Acute non-ST elevation MS: Patient was started on IV heparin cardiology was evaluating the patient in the past the recommended medical management with because of chronic coronary occlusive disease patient had CABG and multiple stents in the past -Coronary disease with previous CABG as mentioned above in subsequent stenting -Hypertension -Hyperlipidemia -COPD without any acute exacerbation -History of carotid stenosis in the past -Obesity will need a sleep study as an outpatient Type 2 diabetes mellitus For above-mentioned chronic medical problems patient will be resumed on appropriate home medications DVT prophylaxis: Patient is on IV heparin Past Medical History Past Medical History: Coronary Artery Disease (CAD), Chest Pain / Angina, COPD, Diabetes Mellitus, Hyperlipidemia, Hypertension, Myocardial Infarction (MS), Osteoarthritis (OA), Vascular Disorder Additional Past Medical History / Comment(s): chest discomfort with walking stairs- mld,left foot cold to touch,Hx vertigo in the past Last Myocardial Infarction Date:: 2012 History of Any Multi-Drug Resistant Organisms: None Reported Past Surgical History: Appendectomy, Coronary Bypass/CABG, Heart Catheterization, Heart Catheterization With Stent Additional Past Surgical History / Comment(s): aortogram with srinivasa lower ext runoffs,Bilateral carotid endarterectomy, quadruple CABG 2017, 4 cardiac stents, hemmorhoidectomy, procedures to veins in legs. Past Anesthesia/Blood Transfusion Reactions: No Reported Reaction Additional Past Anesthesia/Blood Transfusion Reaction / Comment(s): Vertigo. no known hx of blood transfusion Date of Last Stent Placement:: ,10/2022 Past Psychological History: No Psychological Hx Reported Smoking Status: Former smoker Past Alcohol Use History: None Reported Past Drug Use History: None Reported - Past Family History Father Family Medical History: Coronary Artery Disease (CAD), Myocardial Infarction (MS) Mother Family Medical History: Cancer, Renal Disease Brother(s) Family Medical History: Cancer Sister(s) Family Medical History: Cancer Son(s) Family Medical History: Cancer (patient has biological son and a stepson his biological son had thyroid cancer.) Medications and Allergies Home Medications Medication Instructions Recorded Confirmed Type gemfibroziL [Lopid] 600 mg PO AC-BID 11/27/20 10/25/24 History Nitroglycerin Sl Tabs [Nitrostat] 0.4 mg SL Q5M PRN 11/10/22 10/25/24 History Clopidogrel [Plavix] 75 mg PO DAILY #90 tab 11/11/22 10/25/24 Rx Furosemide [Lasix] 20 mg PO DAILY 05/07/23 10/25/24 History Metoprolol Succinate (ER) [Toprol 25 mg PO QAM 05/07/23 10/25/24 History XL] Insulin Degludec [Tresiba 80 units SQ HS 09/01/24 10/25/24 History Flextouch U-200 Pen] Isosorbide Mononitrate ER [Imdur] 30 mg PO QAM 09/01/24 10/25/24 History Aspirin 81 mg PO DAILY 09/15/24 10/25/24 History Albuterol Inhaler [Ventolin Hfa 2 puff INHALATION RT-QID PRN 10/25/24 10/25/24 History Inhaler] Gayatri Hives 180 mg PO DAILY 10/25/24 10/25/24 History Ciprofloxacin HCl [Cipro] 500 mg PO DIRECTED 10/25/24 10/25/24 History Doxazosin [Cardura] 1 mg PO HS 10/25/24 10/25/24 History Rivaroxaban [Xarelto] 2.5 mg PO BID 10/25/24 10/25/24 History Sodium Polystyrene Sulfonate 15 gm PO DAILY 10/25/24 10/25/24 History [Kayexalate] Allergies Allergy/AdvReac Type Severity Reaction Status Date / Time Penicillins Allergy Unknown Verified 10/25/24 07:39 Childhood Sulfa (Sulfonamide Allergy Rash/Hives Verified 10/25/24 07:39 Antibiotics) Physical Exam Vitals: Vital Signs Temp Pulse Resp BP Pulse Ox 10/25/24 11:21 75 20 115/65 98 10/25/24 09:37 78 16 120/70 98 10/25/24 05:26 97.7 F 63 12 108/57 91 L 10/25/24 03:50 72 15 92 L 10/25/24 00:10 98.1 F 72 15 150/75 93 L 10/24/24 21:35 75 16 140/78 96 10/24/24 20:14 98.5 F 87 18 107/52 83 L Intake and Output 10/24/24 10/25/24 10/25/24 22:59 06:59 14:59 Output Total 320 Balance -320 Output: Urine 320 Other: # Voids 2 Weight 120.202 kg Results CBC & Chem 7: 10/25/24 08:39 10/24/24 20:40 Labs: Abnormal Lab Results - Last 24 Hours (Table) 10/24/24 10/24/24 10/24/24 Range/Units 20:28 20:40 20:40 Hgb 12.2 L (13.0-17.5) gm/dL MCHC 28.1 L (31.0-37.0) g/dL RDW 17.2 H (11.5-15.5) % PT 15.2 H (10.0-12.5) sec INR 1.5 H (<1.2) BUN 49 H (9-20) mg/dL Glucose 120 H (74-99) mg/dL Troponin I (0.000-0.034) ng/mL 10/24/24 10/24/24 10/25/24 Range/Units 20:40 22:41 01:42 Hgb (13.0-17.5) gm/dL MCHC (31.0-37.0) g/dL RDW (11.5-15.5) % PT (10.0-12.5) sec INR (<1.2) BUN (9-20) mg/dL Glucose (74-99) mg/dL Troponin I 0.393 H* 0.454 H* 0.504 H* (0.000-0.034) ng/mL 10/25/24 10/25/24 Range/Units 08:39 08:39 Hgb 12.5 L (13.0-17.5) gm/dL MCHC 27.5 L (31.0-37.0) g/dL RDW 16.8 H (11.5-15.5) % PT 14.0 H (10.0-12.5) sec INR 1.3 H (<1.2) BUN (9-20) mg/dL Glucose (74-99) mg/dL Troponin I (0.000-0.034) ng/mL
--- NOTE | 2024-10-25 13:18 | CA ---
Transthoracic Echo Report Name: Blas Heredia Age: 74 Gender: M : 1950 Exam Date: 10/25/2024 10:31 Exam Location: [facility] Ht (in): 70 Wt (lb): 265 Ordering Physician: Deana Gastelum Attending/Referring Phys: [id number], Nirav Administrative Law Judge Samanta Jeter RDCS Procedure CPT: Indications: NSTEMI, CHF, hx of CAD Cardiac Hx: Technical Quality: Technically difficult study Contrast 1: Definity Total Dose (mL): 2 Contrast 2: Total Dose (mL): MEASUREMENTS (Male / Female) Normal Values 2D ECHO LV Diastolic Diameter PLAX 4.1 cm 4.2 - 5.9 / 3.9 - 5.3 cm LV Systolic Diameter PLAX 3.6 cm IVS Diastolic Thickness 1.5 cm 0.6 - 1.0 / 0.6 - 0.9 cm LVPW Diastolic Thickness 1.5 cm 0.6 - 1.0 / 0.6 - 0.9 cm LV Relative Wall Thickness 0.7 RV Internal Dim ED PLAX 5.1 cm LA Systolic Diameter LX 4.6 cm 3.0 - 4.0 / 2.7 - 3.8 cm LV Diastolic Volume MOD 4C 162.0 cm??? LV Systolic Volume MOD 4C 86.8 cm??? LV Ejection Fraction MOD 4C 46.4 % LV Cardiac Index MOD 4C 2331.3 cm???/min???m??? LV Diastolic Length 4C 10.4 cm LV Systolic Length 4C 9.0 cm LV Diastolic Volume MOD 2C 175.2 cm??? LV Systolic Volume MOD 2C 99.9 cm??? LV Ejection Fraction MOD 2C 43.0 % LV Cardiac Index MOD 2C 2332.7 cm???/min???m??? LV Diastolic Length 2C 9.9 cm LV Systolic Length 2C 8.4 cm M-MODE Aortic Root Diameter MM 3.9 cm DOPPLER AV Peak Velocity 180.7 cm/s AV Peak Gradient 13.1 mmHg Mitral E Point Velocity 135.6 cm/s Mitral A Point Velocity 118.4 cm/s Mitral E to A Ratio 1.1 MV Deceleration Time 299.1 ms MV E' Velocity 7.2 cm/s Mitral E to MV E' Ratio 18.9 TR Peak Velocity 303.2 cm/s TR Peak Gradient 36.8 mmHg Right Ventricular Systolic Press 46.8 mmHg FINDINGS Left Ventricle Left ventricular ejection fraction is estimated at 50-55 %. Basal septal and inferior wall hypokinesis.Moderately increased left ventricular wall thickness. Left ventricular cavity size normal. Right Ventricle Severe right ventricular dilatation. Moderate pulmonary hypertension. Right Atrium Normal right atrial size. No right atrial thrombus or mass seen. Left Atrium Mildly increased left atrial diameter. No left atrial thrombus or mass present. Mitral Valve Mitral valve thickened. Mitral annular calcification. No evidence for mitral valve prolapse. No mitral stenosis.mild mitral regurgitation. Aortic Valve Trileaflet aortic valve. Aortic valve sclerosis. No aortic regurgitation. Tricuspid Valve Structurally normal tricuspid valve. Mild tricuspid regurgitation. Pulmonic Valve Pulmonic valve not well visualized. . No pulmonic regurgitation. Pericardium No pericardial effusion. Aorta Moderate aortic dilatation at the level of the sinuses of valsalva 39 mm CONCLUSIONS 1. Left ventricular size borderline normal with segmental wall motion abnormality 2. Mild mitral and tricuspid regurgitation with moderate pulmonary hypertension Technically difficult study. Definity ECHO contrast used for improved visualization of the endocardial borders (inadequate visualization of two or more contiguous segments). Previewed by: Dr. Traci Bell MD (Electronically Signed) Final Date: 25 October 2024 13:17
[2024-10-25 15:28] LABS: INR 1.3 (<1.2); Partial Thromboplastin Time 28.7 sec (22.0-30.0); Prothrombin Time 13.3 sec (10.0-12.5)
[2024-10-25] MEDS: HEPARIN SODIUM 1,000 UN/ML (10ML VL) IV PRN (15:41)
[2024-10-25 15:56] LABS: Chol/HDL Ratio 3.76 Ratio; LDL Cholesterol,Calculated 50.2 mg/dL (0.0-131.0)
[2024-10-25 16:04] LABS: Chol/HDL Ratio 3.72 Ratio; LDL Cholesterol,Calculated 49.9 mg/dL (0.0-131.0)
[2024-10-25] MEDS: ATORVASTATIN 80 MG TAB PO SCH (20:18)
[2024-10-25 20:59] LABS: Glucose,Whole Blood 147 mg/dL (70-110)
[2024-10-26 05:51] LABS: Glucose,Whole Blood 187 mg/dL (70-110)
[2024-10-26 08:16] LABS: Anisocytosis Slight; Basophils % (A) 0 %; Eosinophils # (A) 0.1 k/uL (0-0.7); Eosinophils % (A) 1 %; HCT 42.7 % (39.0-53.0); HGB 11.7 gm/dL (13.0-17.5); Hypochromasia Marked; Lymphocytes # (A) 1.3 k/uL (1.0-4.8); Lymphocytes % (A) 13 %; MCH 25.6 pg (25.0-35.0); MCHC 27.5 g/dL (31.0-37.0); MCV 93.4 fL (80.0-100.0); Mean Platelet Volume 7.3; Monocytes # (A) 0.6 k/uL (0-1.0); Monocytes % (A) 5 %; Neutrophils % (A) 79 %; Platelet Count 437 k/uL (150-450); Poikilocytosis Slight; RBC 4.58 m/uL (4.30-5.90); RDW 16.8 % (11.5-15.5); WBC 10.2 k/uL (3.8-10.6)
[2024-10-26 08:32] LABS: INR 1.3 (<1.2); Prothrombin Time 13.4 sec (10.0-12.5)
[2024-10-26 08:44] LABS: African American GFR (CKD) 48 (>60 ml/min/1.73 sqM); Anion Gap 9 mmol/L; Blood Urea Nitrogen 46 mg/dL (9-20); Calcium 8.5 mg/dL (8.4-10.2); Carbon Dioxide 32 mmol/L (22-30); Chloride 98 mmol/L (98-107); Glucose 155 mg/dL (74-99); Non-African American GFR(CKD) 41 (>60 ml/min/1.73 sqM); Potassium 4.9 mmol/L (3.5-5.1); Sodium 139 mmol/L (137-145)
--- NOTE | 2024-10-26 13:38 | P.PN ---
Subjective 74-year-old male came with complaints of chest pressure-like sensation in the middle of the chest going on for 2 to 3 days denied any radiation associated with some shortness of breath. Denied any lightheadedness or diaphoresis. Patient has extensive cardiac history patient had a CABG in the past subsequent stenting. Patient had a stent in May 2004 and recent echocardiogram showed 60 to 65% EF. Patient has some chronic coronary occlusive disease which is being medically managed. Patient has mild elevated troponins of 0.504. EKG showing ST depressions in V3 V6 and some T wave inversions which are worse than her previous EKGs. 10/26/2024 Patient is clinically doing well patient serum creatinine went up I will discontinue IV Lasix patient clinically is not in heart failure exacerbation at this time patient has normal ejection fraction in the past patient remains on IV heparin and holding Xarelto no further intervention is being planned from cardiology perspective. Patient blood sugars are well-controlled but did not receive his long-acting insulin I will cut down the long-acting insulin to half. Patient presently does not have any pain REVIEW OF SYSTEMS: All other systems are negative except those mentioned in the HPI PHYSICAL EXAMINATION: GENERAL: The patient is alert and oriented x3, not in any acute distress. Well developed, well nourished. Obese HEENT: Pupils are round and equally reacting to light. EOMI. No scleral icterus. No conjunctival pallor. Normocephalic, atraumatic. No pharyngeal erythema. No thyromegaly. CARDIOVASCULAR: S1 and S2 present. No murmurs, rubs, or gallops. PULMONARY: Chest is clear to auscultation, no wheezing or crackles. ABDOMEN: Soft, nontender, nondistended, normoactive bowel sounds. No palpable organomegaly. MUSCULOSKELETAL: No joint swelling or deformity. EXTREMITIES: No cyanosis, clubbing, or pedal edema. NEUROLOGICAL: Gross neurological examination did not reveal any focal deficits. SKIN: No rashes. Assessment and plan -Acute non-ST elevation OK: Patient was started on IV heparin cardiology was evaluating the patient in the past the recommended medical management with because of chronic coronary occlusive disease patient had CABG and multiple stents in the past -Coronary disease with previous CABG as mentioned above in subsequent stenting -Acute renal failure on chronic kidney disease stage II acute renal failure secondary to excessive diuresis IV Lasix will be discontinued -Hypertension -Hyperlipidemia -COPD without any acute exacerbation -History of carotid stenosis in the past -Obesity will need a sleep study as an outpatient Type 2 diabetes mellitus: Resumed on his long-acting insulin at half a dose For above-mentioned chronic medical problems patient will be resumed on appropriate home medications DVT prophylaxis: Patient is on IV heparin Objective - Vital Signs Vital signs: Vital Signs Temp 98.3 F 10/26/24 11:19 Pulse 71 10/26/24 11:19 Resp 16 10/26/24 11:19 BP 124/62 10/26/24 11:19 Pulse Ox 91 L 10/26/24 11:19 FiO2 Intake & Output 10/25/24 10/26/24 10/26/24 18:59 06:59 18:59 Intake Total 66.673 173.419 356.349 Output Total 1600 600 Balance -1533.327 -426.581 356.349 Weight 133 kg Intake: Intake, IV Titration 66.673 173.419 120.349 Amount Heparin Sod,Pork in 0.45% 66.673 173.419 120.349 NaCl 25,000 unit In 0.45 % NaCl 1 250ml.bag @ 8.32 UNITS/KG/HR 10.001 mls/ hr IV .Q24H SANG Rx#: [id number] Oral 236 Output: Urine 1600 600 Other: Voiding Method Toilet Urinal - Labs CBC & Chem 7: 10/26/24 07:32 10/26/24 07:32 Labs: Abnormal Lab Results - Last 24 Hours (Table) 10/25/24 10/25/24 10/25/24 Range/Units 08:39 08:39 08:39 Hgb (13.0-17.5) gm/dL MCHC (31.0-37.0) g/dL RDW (11.5-15.5) % Neutrophils # (1.3-7.7) k/uL PT (10.0-12.5) sec INR (<1.2) APTT (22.0-30.0) sec Carbon Dioxide (22-30) mmol/L BUN (9-20) mg/dL Creatinine (0.66-1.25) mg/dL Glucose (74-99) mg/dL POC Glucose (mg/dL) (70-110) mg/dL Hemoglobin A1c 7.1 H (<=6.0) % HDL Cholesterol 24.50 L 24.70 L (40.00-60.00) mg/dL 10/25/24 10/25/24 10/25/24 Range/Units 14:50 20:57 23:21 Hgb (13.0-17.5) gm/dL MCHC (31.0-37.0) g/dL RDW (11.5-15.5) % Neutrophils # (1.3-7.7) k/uL PT 13.3 H (10.0-12.5) sec INR 1.3 H (<1.2) APTT 32.4 H (22.0-30.0) sec Carbon Dioxide (22-30) mmol/L BUN (9-20) mg/dL Creatinine (0.66-1.25) mg/dL Glucose (74-99) mg/dL POC Glucose (mg/dL) 147 H (70-110) mg/dL Hemoglobin A1c (<=6.0) % HDL Cholesterol (40.00-60.00) mg/dL 10/26/24 10/26/24 10/26/24 Range/Units 05:49 07:32 07:32 Hgb 11.7 L (13.0-17.5) gm/dL MCHC 27.5 L (31.0-37.0) g/dL RDW 16.8 H (11.5-15.5) % Neutrophils # 8.0 H (1.3-7.7) k/uL PT (10.0-12.5) sec INR (<1.2) APTT (22.0-30.0) sec Carbon Dioxide 32 H (22-30) mmol/L BUN 46 H (9-20) mg/dL Creatinine 1.62 H (0.66-1.25) mg/dL Glucose 155 H (74-99) mg/dL POC Glucose (mg/dL) 187 H (70-110) mg/dL Hemoglobin A1c (<=6.0) % HDL Cholesterol (40.00-60.00) mg/dL 10/26/24 Range/Units 07:32 Hgb (13.0-17.5) gm/dL MCHC (31.0-37.0) g/dL RDW (11.5-15.5) % Neutrophils # (1.3-7.7) k/uL PT 13.4 H (10.0-12.5) sec INR 1.3 H (<1.2) APTT 35.0 H (22.0-30.0) sec Carbon Dioxide (22-30) mmol/L BUN (9-20) mg/dL Creatinine (0.66-1.25) mg/dL Glucose (74-99) mg/dL POC Glucose (mg/dL) (70-110) mg/dL Hemoglobin A1c (<=6.0) % HDL Cholesterol (40.00-60.00) mg/dL
[2024-10-26 19:46] LABS: Glucose,Whole Blood 194 mg/dL (70-110)
[2024-10-26] MEDS: METOPROLOL SUCCINATE (ER) 25 MG TAB.ER.24H PO SCH (20:24)
[2024-10-26] MEDS: RANOLAZINE 500 MG TAB.ER.12H PO SCH (20:25)
[2024-10-26] MEDS: DOXAZOSIN 1 MG TAB PO SCH (20:25)
[2024-10-26] MEDS: INSULIN GLARGINE (LANTUS) 100 UNIT/ML SYR SQ SCH (20:25)
[2024-10-27 03:22] LABS: African American GFR (CKD) 53 (>60 ml/min/1.73 sqM); Anion Gap 5 mmol/L; Blood Urea Nitrogen 46 mg/dL (9-20); Calcium 8.5 mg/dL (8.4-10.2); Carbon Dioxide 35 mmol/L (22-30); Chloride 96 mmol/L (98-107); Glucose 85 mg/dL (74-99); Magnesium 2.3 mg/dL (1.6-2.3); Non-African American GFR(CKD) 46 (>60 ml/min/1.73 sqM); Potassium 4.8 mmol/L (3.5-5.1); Sodium 136 mmol/L (137-145)
[2024-10-27 05:58] LABS: Glucose,Whole Blood 70 mg/dL (70-110)
--- NOTE | 2024-10-27 07:55 | XR ---
EXAMINATION TYPE: XR chest 1V DATE OF EXAM: 10/27/2024 7:06 AM COMPARISON: Chest radiographs from 10/24/2024 TECHNIQUE: XR chest 1V Frontal view of the chest. CLINICAL INDICATION:Male, 74 years old with history of CHF; FINDINGS: Lungs/Pleura: There is no evidence of pleural effusion, focal consolidation, or pneumothorax. Bibasi lar atelectasis. Chronic interstitial prominence. Pulmonary vascularity: Unremarkable. Heart/mediastinum: Cardiomediastinal silhouette is enlarged and stable. Atherosclerotic calcificatio ns are seen in the aorta. Musculoskeletal: No acute osseous pathology. Midline sternotomy wires/plates are noted and stable. IMPRESSION: Chronic changes without acute pulmonary process. No significant change from prior. [facility], , 10/27/2024 7:53 AM
[2024-10-27] MEDS: amLODIPine 2.5 MG TAB PO SCH (08:43)
[2024-10-27] MEDS: IPRATROPIUM-ALBUTEROL 3 ML NEB INHALATION PRN (09:09)
[2024-10-27 11:47] LABS: Glucose,Whole Blood 92 mg/dL (70-110)
--- NOTE | 2024-10-27 15:21 | XR ---
EXAMINATION TYPE: XR chest 2V DATE OF EXAM: 10/27/2024 3:13 PM COMPARISON: Multiple radiographs, with the most recent on 10/27/2024. TECHNIQUE: XR chest 2V Frontal and lateral views of the chest. CLINICAL INDICATION:Male, 74 years old with history of sob, high oxygen demand; FINDINGS: Lungs/Pleura: There is no evidence of pleural effusion or pneumothorax. Diffuse interstitial prominen ce. Pulmonary vascularity: Pulmonary vascular congestion. Heart/mediastinum: Cardiomediastinal silhouette is enlarged and stable. Atherosclerotic calcificatio ns are seen in the aorta. Musculoskeletal: Multiple level degenerative disc disease changes seen throughout the spine. Midline sternotomy wires are noted and stable. IMPRESSION: Cardiomegaly and mild pulmonary vascular congestion/pulmonary edema. Correlate with BNP for congestiv e heart failure. Superimposed infectious process is not excluded. [facility], , 10/27/2024 3:19 PM
[2024-10-27] MEDS: FUROSEMIDE 10 MG/ML 10 ML VIAL IV STA (15:47)
[2024-10-27] MEDS: NYSTATIN 100,000UNIT/GM CREAM 30 GM TUBE TOPICAL SCH (15:47)
[2024-10-27 16:36] LABS: Glucose,Whole Blood 85 mg/dL (70-110)
--- NOTE | 2024-10-27 19:54 | P.PN ---
Subjective Progress Note Date: 10/26/24 HISTORY OF PRESENT ILLNESS: This is a 74-year-old male with a past medical history significant for coronary artery disease with previous CABG and subsequent stenting, hypertension, hyperlipidemia, former nicotine dependence, and carotid stenosis with previous bilateral intervention. Patient follows in the office with Dr. Sarmiento. We have been asked to see the patient in consultation for non-STEMI. Patient examined at the bedside in the emergency room. Patient states he has been having chest discomfort and shortness of breath for the past 2 to 3 days. He states the pain is in the middle of his chest. He denied any radiation of the pain. He states that he took nitro at home with relief of his pain. He states he has had not had any further pain since coming to the emergency room. Patient was found to have elevated troponins and was started on IV heparin. DIAGNOSTICS: - EKG reveals this mechanism with ST depression in V3V6. Repeat EKG sinus mechanism with T wave inversions in V3V6. - Chest xray interstitial lung disease changes without acute pulmonary process - Laboratory data: WBC 8.5. Hemoglobin 12.5. Platelet count 412. Sodium 139. Potassium 4.4. BUN 49. Creatinine 1.24. Troponin 0.393. 0.454. 0.504. - Current home cardiac medications include aspirin 81 mg daily, Plavix 75 mg daily, Lasix 20 mg daily, Imdur 30 mg daily, metoprolol succinate 25 mg daily, Xarelto 2.5 mg twice a day - Most recent echocardiogram obtained in October 2022 revealed ejection fraction 60 to 65%, mild mitral stenosis, mild to moderate mitral regurgitation, trace to mild tricuspid regurgitation small circumferential pericardial effusion. - Cardiac catheterization history: May 2024 with stenting of the SVG to diagonal Progress note 10/26/2024 Patient is seen and examined at bedside this a.m. With current regimen he is making good amount of urine and his kidney function is staying stable. He is not complaining of any chest pain chest pressure. However patient's family is wanting to evaluate if he would benefit from a heart catheterization. I feel that patient's coronary artery disease is stable and his troponin elevation is a flat pattern. Will repeat her troponin level. PHYSICAL EXAM: VITAL SIGNS: Reviewed. GENERAL: Well-developed in no acute distress. HEENT: Head is normocephalic. Pupils are equal, round. Sclerae anicteric. Mucous membranes of the mouth are moist. Neck supple. No JVD or thyromegaly LUNGS: Respirations even and unlabored. Lungs essentially clear to auscultation bilaterally. HEART: Regular rate and rhythm. S1 and S2 heard. ABDOMEN: Soft. Nondistended. Nontender. EXTREMITIES: Normal range of motion. No clubbing or cyanosis. Peripheral pulses intact. No lower extremity edema NEUROLOGIC: Awake and alert. Oriented x 3. ASSESSMENT: Non-STEMI Acute on chronic heart failure with preserved EF 60 to 65% Coronary artery disease with previous four-vessel CABG in 2017 with subsequent stenting, most recently SVG to diagonal, 05/2024 Hypertension Hyperlipidemia Former nicotine dependence Carotid stenosis with previous bilateral intervention Cardiac testing Echo shows an EF of 50 to 55%, basal inferior wall hypokinesia, moderate concentric LVH, severe RV dilatation with moderate pulmonary hypertension, mild mitral and tricuspid regurgitation. PLAN: Continue IV heparin for next 24 hours. Continue IV Lasix 40 mg twice daily. Continue aspirin, atorvastatin, Imdur, and metoprolol Add Ranexa 500 mg twice a day Add Farxiga 10 mg daily Further recommendations pending patient course Obtain chest x-ray for tomorrow Objective - Vital Signs Vital signs: Vital Signs Temp 98.1 F 10/27/24 19:33 Pulse 75 10/27/24 19:33 Resp 24 10/27/24 19:33 BP 164/75 10/27/24 19:33 Pulse Ox 92 L 10/27/24 19:33 FiO2 Intake & Output 10/27/24 10/27/24 10/28/24 06:59 18:59 06:59 Intake Total 608 Balance 608 Weight 134 kg Intake: Intake, IV Titration 250 Amount Heparin Sod,Pork in 0.45% 250 NaCl 25,000 unit In 0.45 % NaCl 1 250ml.bag @ 8.32 UNITS/KG/HR 10.001 mls/ hr IV .Q24H [facility] Rx#: [id number] Oral 358 Other: Voiding Method External Catheter External Catheter - Labs CBC & Chem 7: 10/26/24 07:32 10/27/24 02:26 Labs: Abnormal Lab Results - Last 24 Hours (Table) 10/27/24 10/27/24 Range/Units 02:26 02:29 APTT 62.1 H (22.0-30.0) sec Sodium 136 L (137-145) mmol/L Chloride 96 L (98-107) mmol/L Carbon Dioxide 35 H (22-30) mmol/L BUN 46 H (9-20) mg/dL Creatinine 1.48 H (0.66-1.25) mg/dL
--- NOTE | 2024-10-27 19:59 | P.PN ---
Subjective Progress Note Date: 10/27/24 HISTORY OF PRESENT ILLNESS: This is a 74-year-old male with a past medical history significant for coronary artery disease with previous CABG and subsequent stenting, hypertension, hyperlipidemia, former nicotine dependence, and carotid stenosis with previous bilateral intervention. Patient follows in the office with Dr. Sarmiento. We have been asked to see the patient in consultation for non-STEMI. Patient examined at the bedside in the emergency room. Patient states he has been having chest discomfort and shortness of breath for the past 2 to 3 days. He states the pain is in the middle of his chest. He denied any radiation of the pain. He states that he took nitro at home with relief of his pain. He states he has had not had any further pain since coming to the emergency room. Patient was found to have elevated troponins and was started on IV heparin. DIAGNOSTICS: - EKG reveals this mechanism with ST depression in V3V6. Repeat EKG sinus mechanism with T wave inversions in V3V6. - Chest xray interstitial lung disease changes without acute pulmonary process - Laboratory data: WBC 8.5. Hemoglobin 12.5. Platelet count 412. Sodium 139. Potassium 4.4. BUN 49. Creatinine 1.24. Troponin 0.393. 0.454. 0.504. - Current home cardiac medications include aspirin 81 mg daily, Plavix 75 mg daily, Lasix 20 mg daily, Imdur 30 mg daily, metoprolol succinate 25 mg daily, Xarelto 2.5 mg twice a day - Most recent echocardiogram obtained in October 2022 revealed ejection fraction 60 to 65%, mild mitral stenosis, mild to moderate mitral regurgitation, trace to mild tricuspid regurgitation small circumferential pericardial effusion. - Cardiac catheterization history: May 2024 with stenting of the SVG to diagonal Progress note 10/26/2024 Patient is seen and examined at bedside this a.m. With current regimen he is making good amount of urine and his kidney function is staying stable. He is not complaining of any chest pain chest pressure. However patient's family is wanting to evaluate if he would benefit from a heart catheterization. I feel that patient's coronary artery disease is stable and his troponin elevation is a flat pattern. Will repeat her troponin level. 10/27/2024 Patient is seen and examined at bedside this a.m. His chest x-ray does show increased pulmonary congestion as compared to from before. His Lasix was held in view of his elevated creatinine. Creatinine yesterday was 1.6. Today it was 1.4. His baseline appears to be around 1.2 PHYSICAL EXAM: HEENT: Head is normocephalic. Pupils are equal, round. Sclerae anicteric. Mucous membranes of the mouth are moist. Neck supple. No JVD or thyromegaly LUNGS: Respirations even and unlabored. Lungs essentially clear to auscultation bilaterally. HEART: Regular rate and rhythm. S1 and S2 heard. ABDOMEN: Soft. Nondistended. Nontender. EXTREMITIES: Normal range of motion. No clubbing or cyanosis. Peripheral pulses intact. No lower extremity edema NEUROLOGIC: Awake and alert. Oriented x 3. ASSESSMENT: Non-STEMI Acute on chronic heart failure with preserved EF 60 to 65% Coronary artery disease with previous four-vessel CABG in 2016 with subsequent stenting, most recently SVG to diagonal, 05/2024 Severe PAD with recent bilateral lower extremity intervention Hypertension Hyperlipidemia, LDL at goal Type 2 diabetes, HbA1c 7.1 Former nicotine dependence Morbid obesity Suspect obstructive sleep apnea Carotid stenosis with previous bilateral intervention Cardiac testing Echo shows an EF of 50 to 55%, basal inferior wall hypokinesia, moderate concentric LVH, severe RV dilatation with moderate pulmonary hypertension, mild mitral and tricuspid regurgitation. PLAN: Patient has completed 48 hours of IV heparin. Discontinue IV heparin. Start Xarelto 2.5 mg daily. Continue aspirin and Plavix in view of recent lower extremity intervention. Continue Lipitor Give 1 dose of IV Lasix 60 mg. From tomorrow start him on Bumex 1 mg p.o. twice daily for 3 days and thereafter once a day. For antianginals he is on amlodipine 5 mg daily, metoprolol 25 mg twice daily, Imdur 30 mg daily, Ranexa 1000 mg twice daily. No plan for heart catheterization at this time. At this time goal is to optimize his heart failure regimen and antianginal therapy. It appears that patient's symptoms and mild elevation of troponin with a flat pattern is most likely related to his HFrEF exacerbation. If kidney function stays stable, anticipate discharge in the patient tomorrow with recommended outpatient follow-up with primary jigsawyer. Objective - Vital Signs Vital signs: Vital Signs Temp 98.1 F 10/27/24 19:33 Pulse 75 10/27/24 19:33 Resp 24 10/27/24 19:33 BP 164/75 10/27/24 19:33 Pulse Ox 92 L 10/27/24 19:33 FiO2 Intake & Output 10/27/24 10/27/24 10/28/24 06:59 18:59 06:59 Intake Total 608 Balance 608 Weight 134 kg Intake: Intake, IV Titration 250 Amount Heparin Sod,Pork in 0.45% 250 NaCl 25,000 unit In 0.45 % NaCl 1 250ml.bag @ 8.32 UNITS/KG/HR 10.001 mls/ hr IV .Q24H [facility] Rx#: [id number] Oral 358 Other: Voiding Method External Catheter External Catheter - Labs CBC & Chem 7: 10/26/24 07:32 10/27/24 02:26 Labs: Abnormal Lab Results - Last 24 Hours (Table) 10/27/24 10/27/24 Range/Units 02:26 02:29 APTT 62.1 H (22.0-30.0) sec Sodium 136 L (137-145) mmol/L Chloride 96 L (98-107) mmol/L Carbon Dioxide 35 H (22-30) mmol/L BUN 46 H (9-20) mg/dL Creatinine 1.48 H (0.66-1.25) mg/dL
[2024-10-27 20:09] LABS: Glucose,Whole Blood 83 mg/dL (70-110)
[2024-10-27 20:31] LABS: Influenza A Not Detected (Not Detectd); Influenza B Not Detected (Not Detectd); RSV Not Detected (Not Detectd)
[2024-10-27] MEDS: RIVAROXABAN 2.5 MG TABLET PO SCH (20:51)
[2024-10-27] MEDS: amLODIPine 2.5 MG TAB PO STA (20:52)
[2024-10-28 06:24] LABS: Glucose,Whole Blood 81 mg/dL (70-110)
[2024-10-28 06:24] LABS: Glucose,Whole Blood 61 mg/dL (70-110)
[2024-10-28 07:38] LABS: Anisocytosis Slight; Basophils % (A) 0 %; Eosinophils # (A) 0.1 k/uL (0-0.7); Eosinophils % (A) 1 %; HGB 12.4 gm/dL (13.0-17.5); Hypochromasia Marked; Lymphocytes # (A) 0.8 k/uL (1.0-4.8); Lymphocytes % (A) 9 %; MCH 25.6 pg (25.0-35.0); MCHC 27.5 g/dL (31.0-37.0); MCV 92.9 fL (80.0-100.0); Mean Platelet Volume 7.4; Monocytes # (A) 0.5 k/uL (0-1.0); Monocytes % (A) 5 %; Neutrophils # (A) 7.9 k/uL (1.3-7.7); Neutrophils % (A) 84 %; Platelet Count 356 k/uL (150-450); Poikilocytosis Slight; RBC 4.85 m/uL (4.30-5.90); RDW 16.8 % (11.5-15.5); WBC 9.3 k/uL (3.8-10.6)
[2024-10-28 07:44] LABS: ALT 11 U/L (4-49); AST 25 U/L (17-59); African American GFR (CKD) 62 (>60 ml/min/1.73 sqM); Albumin 3.8 g/dL (3.5-5.0); Alkaline Phosphatase 72 U/L (38-126); Anion Gap 6 mmol/L; Blood Urea Nitrogen 48 mg/dL (9-20); Carbon Dioxide 36 mmol/L (22-30); Chloride 94 mmol/L (98-107); Glucose 102 mg/dL (74-99); Magnesium 2.3 mg/dL (1.6-2.3); Non-African American GFR(CKD) 54 (>60 ml/min/1.73 sqM); Potassium 4.9 mmol/L (3.5-5.1); Sodium 136 mmol/L (137-145); Total Bilirubin 0.8 mg/dL (0.2-1.3); Total Protein 7.1 g/dL (6.3-8.2)
--- NOTE | 2024-10-28 08:26 | P.PN ---
Subjective Progress Note Date: 10/27/24 74-year-old male came with complaints of chest pressure-like sensation in the middle of the chest going on for 2 to 3 days denied any radiation associated with some shortness of breath. Denied any lightheadedness or diaphoresis. Patient has extensive cardiac history patient had a CABG in the past subsequent stenting. Patient had a stent in May 2004 and recent echocardiogram showed 60 to 65% EF. Patient has some chronic coronary occlusive disease which is being medically managed. Patient has mild elevated troponins of 0.504. EKG showing ST depressions in V3 V6 and some T wave inversions which are worse than her previous EKGs. 10/26/2024 Patient is clinically doing well patient serum creatinine went up I will discontinue IV Lasix patient clinically is not in heart failure exacerbation at this time patient has normal ejection fraction in the past patient remains on IV heparin and holding Xarelto no further intervention is being planned from cardiology perspective. Patient blood sugars are well-controlled but did not receive his long-acting insulin I will cut down the long-acting insulin to half. Patient presently does not have any pain 10/27/2024 Patient is seen in follow-up today with cardiology following. Patient continues to be short of breath and was found in the bathroom with spouse without oxygen and per nursing staff patient saturating into the 80s and reports does not wear oxygen outpatient. Patient is becoming agitated and wanting to go home and is persistent awaiting to speak with cardiology as she wants him to undergo cardiac catheterization. Per cardiology no plans for immediate cardiac catheterization recommending adjusting medications and maximizing medical management. Will have to perform O2 assessment for possible home O2 on discharge. Review of systems: Constitutional: No reports of fatigue, fever, or chills Cardiovascular: No reports of chest pain or palpitations Respiratory: Ongoingreports of shortness of breath especially with any form of exertion GI: No reports of nausea, vomiting, or diarrhea : No reports of dysuria or retention Neurovascular: No reports of weakness or numbness All medications have been reviewed Elderly appearing physical examination: GENERAL: The patient is alert and oriented x3, not in any acute distress. Well developed, elderly appearing, morbidly obese HEENT: Pupils are round and equally reacting to light. EOMI. No scleral icterus. No conjunctival pallor. Normocephalic, atraumatic. No pharyngeal erythema. No thyromegaly. CARDIOVASCULAR: S1 and S2 muffled PULMONARY: Diminished breath sounds bilaterally chest is clear to auscultation, no wheezing or crackles. ABDOMEN: Soft, obese, nontender, nondistended, normoactive bowel sounds. No palpable organomegaly. MUSCULOSKELETAL: No joint swelling or deformity. EXTREMITIES: No cyanosis, clubbing, or pedal edema. Mild lower extremity swelling, left more so than right NEUROLOGICAL: Gross neurological examination did not reveal any focal deficits. SKIN: No rashes. Assessment and plan -Acute non-ST elevation SD: Patient was started on IV heparin cardiology was evaluating the patient in the past the recommended medical management with be cause of chronic coronary occlusive disease patient had CABG and multiple stents in the past -Acute hypoxic respiratory failure, secondary to acute on chronic heart failure with preserved EF -Acute on chronic congestive heart failure with preserved EF -History of severe peripheral artery disease with recent bilateral lower extremity intervention -Coronary disease with previous CABG as mentioned above in subsequent stenting -Acute renal failure on chronic kidney disease stage II acute renal failure secondary to excessive diuresis IV Lasix will be discontinued -Hypertension -Hyperlipidemia -COPD without any acute exacerbation -History of carotid stenosis in the past -Morbid obesity with a BMI of 41.6, will need a sleep study as an outpatient Type 2 diabetes mellitus: Resumed on his long-acting insulin at half a dose DVT prophylaxis: Patient is on IV heparin and will transition to Xarelto GI prophylaxis Full code Plan: Patient being monitored with cardiology following maintained on IV heparin and has been on for heparin for 48 hours will transition to Xarelto per cardiology. No plans for cardiac catheterization at this time recommending maximizing medical management per cardiology but adjustments to medications Encouraged increase activity as tolerated and also elevating lower extremities while at rest as patient has continued lower extremity edema, worse on the left and patient and family reports this is chronic send surgical intervention for severe peripheral artery disease. Currently requiring 2 to 3 L of oxygen and reports does not wear oxygen outpatient and will perform home O2 assessment as patient may likely require oxygen on discharge Family at bedside awaiting to speak further with cardiology with multiple questions and concerns Patient is keen on going home and awaiting cardiology clearance. Possible discharge planning in 24 hours The impression and plan of care has been dictated by Bella Hussein, Nurse Practitioner as directed. Dr. Larisa MD I have performed a history and examination and MDM of this patient, discussed the same with the dictator, and agree with the dictator's assessment and plan as written ,documented as a scribe. Based on total visit time, I have performed more than 50% of the visit. Objective - Vital Signs Vital signs: Vital Signs Temp 97.9 F 10/27/24 08:00 Pulse 80 10/27/24 09:17 Resp 22 10/27/24 08:00 BP 119/60 10/27/24 08:00 Pulse Ox 95 10/27/24 08:26 FiO2 Intake & Output 10/26/24 10/27/24 10/27/24 18:59 06:59 18:59 Intake Total 722.000 250 Output Total 250 Balance 472.000 250 Weight 134 kg Intake: Intake, IV Titration 250.000 250 Amount Heparin Sod,Pork in 0.45% 250.000 250 NaCl 25,000 unit In 0.45 % NaCl 1 250ml.bag @ 8.32 UNITS/KG/HR 10.001 mls/ hr IV .Q24H [facility] Rx#: [id number] Oral 472 Output: Urine 250 Other: Voiding Method Toilet External Catheter Urinal - Labs CBC & Chem 7: 10/28/24 06:50 10/28/24 06:50 Labs: Abnormal Lab Results - Last 24 Hours (Table) 10/26/24 10/26/24 10/26/24 Range/Units 17:31 17:48 19:42 APTT 39.2 H (22.0-30.0) sec Sodium (137-145) mmol/L Chloride (98-107) mmol/L Carbon Dioxide (22-30) mmol/L BUN (9-20) mg/dL Creatinine (0.66-1.25) mg/dL POC Glucose (mg/dL) 194 H (70-110) mg/dL Troponin I 0.445 H* (0.000-0.034) ng/mL 10/27/24 10/27/24 Range/Units 02:26 02:29 APTT 62.1 H (22.0-30.0) sec Sodium 136 L (137-145) mmol/L Chloride 96 L (98-107) mmol/L Carbon Dioxide 35 H (22-30) mmol/L BUN 46 H (9-20) mg/dL Creatinine 1.48 H (0.66-1.25) mg/dL POC Glucose (mg/dL) (70-110) mg/dL Troponin I (0.000-0.034) ng/mL
[2024-10-28] MEDS: IRON PS CMPLX/VIT B12/FA 1 EACH CAP PO SCH (09:53)
[2024-10-28] MEDS: amLODIPine 5 MG TAB PO SCH (09:53)
[2024-10-28 11:29] LABS: Glucose,Whole Blood 146 mg/dL (70-110)
[2024-10-28 11:39] LABS: ABG Base Excess 6.9 mmol/L; ABG HCO3 38 mmol/L (21-25); ABG Oxygen Saturation 95.8 % (94-97); ABG PH 7.21 (7.35-7.45); ABG PO2 87 mmHg (83-108); ABG TCO2 41 mmol/L (19-24); Allen Test Performed? Yes
[2024-10-28 11:55] LABS: ABG PCO2 95 mmHg (35-45)
--- NOTE | 2024-10-28 12:14 | P.PN ---
Subjective 74-year-old male came with complaints of chest pressure-like sensation in the middle of the chest going on for 2 to 3 days denied any radiation associated with some shortness of breath. Denied any lightheadedness or diaphoresis. Patient has extensive cardiac history patient had a CABG in the past subsequent stenting. Patient had a stent in May 2004 and recent echocardiogram showed 60 to 65% EF. Patient has some chronic coronary occlusive disease which is being medically managed. Patient has mild elevated troponins of 0.504. EKG showing ST depressions in V3 V6 and some T wave inversions which are worse than her previous EKGs. 10/26/2024 Patient is clinically doing well patient serum creatinine went up I will discontinue IV Lasix patient clinically is not in heart failure exacerbation at this time patient has normal ejection fraction in the past patient remains on IV heparin and holding Xarelto no further intervention is being planned from cardiology perspective. Patient blood sugars are well-controlled but did not receive his long-acting insulin I will cut down the long-acting insulin to half. Patient presently does not have any pain 10/27/2024 Patient is seen in follow-up today with cardiology following. Patient continues to be short of breath and was found in the bathroom with spouse without oxygen and per nursing staff patient saturating into the 80s and reports does not wear oxygen outpatient. Patient is becoming agitated and wanting to go home and is persistent awaiting to speak with cardiology as she wants him to undergo cardiac catheterization. Per cardiology no plans for immediate cardiac cathete rization recommending adjusting medications and maximizing medical management. Will have to perform O2 assessment for possible home O2 on discharge. 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 Marina, he has not seen him for 2-year, he quit smoking more than 20 years ago. He is not on oxygen at home and currently on 3 to 4 L oxygen via nasal cannula Pulmonary team were consulted He still is on Bumex for CHF and bilateral leg edema All questions with the were answered. Will continue close monitoring Active Medications Generic Name Dose Route Start Last Admin Trade Name Freq PRN Reason Stop Dose Admin Albuterol/Ipratropium 3 ml 10/24/24 21:56 10/27/24 09:09 Ipratropium-Albuterol 3 Ml Neb INHALATION 3 ml RT-Q2H PRN Administration Shortness Of Breath Or Wheezing Amlodipine Besylate 5 mg 10/28/24 09:00 10/28/24 09:53 Amlodipine 5 Mg Tab PO 5 mg DAILY [facility] Administration Aspirin 81 mg 10/25/24 09:00 10/28/24 09:52 Aspirin 81 Mg PO 81 mg DAILY [facility]ANG Administration Atorvastatin Calcium 80 mg 10/25/24 21:00 10/27/24 20:52 Atorvastatin 80 Mg Tab PO 80 mg HS [facility] Administration Bumetanide 1 mg 10/28/24 16:00 Bumetanide 1 Mg Tab PO 10/31/24 15:59 BID@0900,1600 [facility] Bumetanide 1 mg 10/31/24 09:00 Bumetanide 1 Mg Tab PO DAILY [facility] Clopidogrel Bisulfate 75 mg 10/25/24 09:00 10/28/24 09:52 Clopidogrel 75 Mg Tab PO 75 mg DAILY [facility]ANG Administration Dapagliflozin 10 mg 10/25/24 09:00 10/28/24 09:53 Dapagliflozin Propanediol 10 Mg Tablet PO 10 mg DAILY [facility]ANG Administration Doxazosin Mesylate 1 mg 10/26/24 21:00 10/27/24 20:52 Doxazosin 1 Mg Tab PO 1 mg HS [facility] Administration Insulin Glargine 40 unit 10/26/24 21:00 10/27/24 20:52 Insulin Glargine (Lantus) 100 Unit/Ml Syr SQ Not Given HS [facility] Isosorbide Mononitrate 30 mg 10/25/24 09:00 10/28/24 09:53 Isosorbide Mononitrate Er 30 Mg Tab.Er.24h PO 30 mg QAM [facility] Administration Metoprolol Succinate 25 mg 10/26/24 21:00 10/28/24 09:53 Metoprolol Succinate (Er) 25 Mg Tab.Er.24h PO 25 mg BID [facility] Administration Nystatin 1 applic 10/27/24 21:00 10/28/24 09:54 Nystatin 100,000unit/Gm Cream 30 Gm Tube TOPICAL 1 applic BID SANG Administration Protocol Polysaccharide Iron Complex 1 each 10/28/24 09:00 10/28/24 09:53 Iron Ps Cmplx/Vit B12/Fa 1 Each Cap PO 1 each DAILY [facility] Administration Ranolazine 1,000 mg 10/26/24 21:00 10/28/24 09:52 Ranolazine 500 Mg Tab.Er.12h PO 1,000 mg Q12HR [facility] Administration Rivaroxaban 2.5 mg 10/27/24 21:00 10/28/24 09:53 Rivaroxaban 2.5 Mg Tablet PO 2.5 mg BID SANG Administration Protocol Objective - Vital Signs Vital signs: Vital Signs Temp 97.6 F 10/28/24 11:58 Pulse 67 10/28/24 11:58 Resp 18 10/28/24 11:58 BP 116/63 10/28/24 11:58 Pulse Ox 93 L 10/28/24 11:58 FiO2 35 10/28/24 11:59 Intake & Output 10/27/24 10/28/24 10/28/24 18:59 06:59 18:59 Intake Total 608 Output Total 900 Balance 608 -900 Weight 131.5 kg Intake: Intake, IV Titration 250 Amount Heparin Sod,Pork in 0.45% 250 NaCl 25,000 unit In 0.45 % NaCl 1 250ml.bag @ 8.32 UNITS/KG/HR 10.001 mls/ hr IV .Q24H [facility] Rx#: [id number] Oral 358 Output: Urine 900 Other: Voiding Method External Catheter External Catheter - Exam -GENERAL: The patient is drowsy, not in any acute distress. Well developed, well nourished. HEENT: Pupils are round and equally reacting to light. EOMI. No scleral icterus. No conjunctival pallor. Normocephalic, atraumatic. No pharyngeal erythema. No thyromegaly. CARDIOVASCULAR: S1 and S2 present. No murmurs, rubs, or gallops. -PULMONARY: Chest is clear to auscultation, no wheezing , no crackles. Decreased air entry on both sides ABDOMEN: Soft, nontender, nondistended, normoactive bowel sounds. No palpable organomegaly. MUSCULOSKELETAL: No joint swelling or deformity. -EXTREMITIES: No cyanosis, clubbing,. Bilateral pitting leg edema. NEUROLOGICAL: Gross neurological examination did not reveal any focal deficits. SKIN: No rashes. no petechiae. - Labs CBC & Chem 7: 10/28/24 06:50 10/28/24 06:50 Labs: Abnormal Lab Results - Last 24 Hours (Table) 10/28/24 10/28/24 10/28/24 Range/Units 05:59 06:50 06:50 Hgb 12.4 L (13.0-17.5) gm/dL MCHC 27.5 L (31.0-37.0) g/dL RDW 16.8 H (11.5-15.5) % Neutrophils # 7.9 H (1.3-7.7) k/uL Lymphocytes # 0.8 L (1.0-4.8) k/uL ABG pH (7.35-7.45) ABG pCO2 (35-45) mmHg ABG HCO3 (21-25) mmol/L ABG Total CO2 (19-24) mmol/L Hemoglobin (13.0-17.5) gm/dL Sodium 136 L (137-145) mmol/L Chloride 94 L (98-107) mmol/L Carbon Dioxide 36 H (22-30) mmol/L BUN 48 H (9-20) mg/dL Creatinine 1.31 H (0.66-1.25) mg/dL Glucose 102 H (74-99) mg/dL POC Glucose (mg/dL) 61 L (70-110) mg/dL 10/28/24 10/28/24 Range/Units 11:27 11:30 Hgb (13.0-17.5) gm/dL MCHC (31.0-37.0) g/dL RDW (11.5-15.5) % Neutrophils # (1.3-7.7) k/uL Lymphocytes # (1.0-4.8) k/uL ABG pH 7.21 L (7.35-7.45) ABG pCO2 95 H* (35-45) mmHg ABG HCO3 38 H (21-25) mmol/L ABG Total CO2 41 H (19-24) mmol/L Hemoglobin 11.7 L (13.0-17.5) gm/dL Sodium (137-145) mmol/L Chloride (98-107) mmol/L Carbon Dioxide (22-30) mmol/L BUN (9-20) mg/dL Creatinine (0.66-1.25) mg/dL Glucose (74-99) mg/dL POC Glucose (mg/dL) 146 H (70-110) mg/dL Assessment and Plan Assessment: - Acute COPD exacerbation - Acute hypoxic hypercapnic respiratory failure -Acute non-ST elevation CO: Patient was started on IV heparin cardiology was evaluating the patient in the past the recommended medical management with because of chronic coronary occlusive disease patient had CABG and multiple stents in the past -Acute hypoxic respiratory failure, secondary to acute on chronic heart failure with preserved EF -Acute on chronic congestive heart failure with preserved EF -History of severe peripheral artery disease with recent bilateral lower extremity intervention -Coronary disease with previous CABG as mentioned above in subsequent stenting -Acute renal failure on chronic kidney disease stage II acute renal failure secondary to excessive diuresis IV Lasix will be discontinued -Hypertension -Hyperlipidemia -COPD without any acute exacerbation -History of carotid stenosis in the past -Morbid obesity with a BMI of 41.6, will need a sleep study as an outpatient Type 2 diabetes mellitus: Resumed on his long-acting insulin at half a dose Plan: Continue with Bumex Cardiology team following Start BiPAP Pulmonary team consult, patient may benefit also from steroid, will defer to pulmonary team Monitor for fluid status, creatinine and electrolytes DVT prophylaxis: Patient is on IV heparin and will transition to Xarelto GI prophylaxis Full code
--- NOTE | 2024-10-28 12:42 | XR ---
EXAMINATION TYPE: XR chest 1V portable DATE OF EXAM: 10/28/2024 COMPARISON: 10/27/2024 CLINICAL INDICATION: Male, 74 years old with history of shortness of breath; TECHNIQUE: Single frontal view of the chest is obtained. FINDINGS: There is persistent moderate cardiomegaly and moderate pulmonary vascular congestion. There is no lar ge pleural effusion. There is no pneumothorax. The osseous structures are intact. IMPRESSION: Stable acute cardiopulmonary disease. Pattern is most suggestive of CHF [facility], Workstation: CARLIN 10/28/2024 12:40 PM
--- NOTE | 2024-10-28 14:04 | P.NPCON ---
History of Present Illness - Reason for Consult Consult date: 10/28/24 acute renal failure - Chief Complaint Chest pain - History of Present Illness 74 years old male pateint with PMHx of coronary artery disease s/p CABG and PCI, hypertension, hyperlipidemia, former nicotine dependence, and carotid stenosis with previous bilateral intervention. presented to the ED on 10/25 c/o chest pain, of 2-3 days, he was admitted to the hospital for management of NSTEMI, cardiol riley evaluated the patient, he was treated with IV heparin, he was also started on IV Lasix 40 mg BID and Farxiga on 10/25, no plans for cardiac catheterization , the next day on 10/26 patient's creatinine trended up to 1.6 from 1.2, IV lasix was held. gradually Cr. improved to 1.3 today, CXR moderate pulmonary vascular congestion, ABG showed respiratory acidosis, CO2 95, bicarb 38, he was started on BIPAP and Bumex 1 mg BID nephrology is consulted for KATHRYN. Review of Systems as mentioned in HPI Past Medical History Past Medical History: Coronary Artery Disease (CAD), Chest Pain / Angina, COPD, Diabetes Mellitus, Hyperlipidemia, Hypertension, Myocardial Infarction ([place]), Osteoarthritis (OA), Vascular Disorder Additional Past Medical History / Comment(s): chest discomfort with walking stairs- mld,left foot cold to touch,Hx vertigo in the past Last Myocardial Infarction Date:: 2012 History of Any Multi-Drug Resistant Organisms: None Reported Past Surgical History: Appendectomy, Coronary Bypass/CABG, Heart Catheterization, Heart Catheterization With Stent Additional Past Surgical History / Comment(s): aortogram with srinivasa lower ext runoffs,Bilateral carotid endarterectomy, quadruple CABG 2016, 4 cardiac stents, hemmorhoidectomy, procedures to veins in legs. Past Anesthesia/Blood Transfusion Reactions: No Reported Reaction Additional Past Anesthesia/Blood Transfusion Reaction / Comment(s): Vertigo. no known hx of blood transfusion Date of Last Stent Placement:: ,10/2022 Past Psychological History: No Psychological Hx Reported Smoking Status: Former smoker Past Alcohol Use History: None Reported Additional Past Alcohol Use History / Comment(s): Quit smoking in 1996, smoked 1ppd for 30 yrs. Past Drug Use History: None Reported - Past Family History Father Family Medical History: Coronary Artery Disease (CAD), Myocardial Infarction ([place]) Mother Family Medical History: Cancer, Renal Disease Brother(s) Family Medical History: Cancer Sister(s) Family Medical History: Cancer Son(s) Family Medical History: Cancer (patient has biological son and a stepson his biological son had thyroid cancer.) Medications and Allergies Home Medications Medication Instructions Recorded Confirmed Type gemfibroziL [Lopid] 600 mg PO AC-BID 11/27/20 10/25/24 History Nitroglycerin Sl Tabs [Nitrostat] 0.4 mg SL Q5M PRN 11/10/22 10/25/24 History Clopidogrel [Plavix] 75 mg PO DAILY #90 tab 11/11/22 10/25/24 Rx Furosemide [Lasix] 20 mg PO DAILY 05/07/23 10/25/24 History Metoprolol Succinate (ER) [Toprol 25 mg PO QAM 05/07/23 10/25/24 History XL] Insulin Degludec [Tresiba 80 units SQ HS 09/01/24 10/25/24 History Flextouch U-200 Pen] Isosorbide Mononitrate ER [Imdur] 30 mg PO QAM 09/01/24 10/25/24 History Aspirin 81 mg PO DAILY 09/15/24 10/25/24 History Albuterol Inhaler [Ventolin Hfa 2 puff INHALATION RT-QID PRN 10/25/24 10/25/24 History Inhaler] Gayatri Hives 180 mg PO DAILY 10/25/24 10/25/24 History Ciprofloxacin HCl [Cipro] 500 mg PO DIRECTED 10/25/24 10/25/24 History Doxazosin [Cardura] 1 mg PO HS 10/25/24 10/25/24 History Rivaroxaban [Xarelto] 2.5 mg PO BID 10/25/24 10/25/24 History Sodium Polystyrene Sulfonate 15 gm PO DAILY 10/25/24 10/25/24 History [Kayexalate] Allergies Allergy/AdvReac Type Severity Reaction Status Date / Time Penicillins Allergy Unknown Verified 10/25/24 07:39 Childhood Sulfa (Sulfonamide Allergy Rash/Hives Verified 10/25/24 07:39 Antibiotics) Physical Exam Vitals: Vital Signs Temp Pulse Resp BP Pulse Ox FiO2 10/28/24 11:59 35 10/28/24 11:58 97.6 F 67 18 116/63 93 L 35 10/28/24 11:52 35 10/28/24 08:42 98.1 F 83 20 178/80 91 L 10/28/24 08:02 94 L 10/28/24 03:37 98.9 F 85 24 146/73 92 L 10/27/24 23:17 98.7 F 80 22 150/68 91 L 10/27/24 19:33 98.1 F 75 24 164/75 92 L 10/27/24 15:52 97.3 F L 73 18 130/74 93 L 10/27/24 13:47 76 16 Intake and Output 10/27/24 10/28/24 10/28/24 22:59 06:59 14:59 Output Total 900 Balance -900 Output: Urine 900 Other: Voiding Method External Catheter External Catheter Weight 131.5 kg GENERAL: awake, no acute distress. Well developed, well nourished. on BIPAP HEENT: Pupils are round and equally reacting to light. EOMI. No scleral icterus. No conjunctival pallor. Normocephalic, atraumatic. No pharyngeal erythema. No thyromegaly. CARDIOVASCULAR: S1 and S2 present. No murmurs, rubs, or gallops. PULMONARY: Chest is clear to auscultation, no wheezing , no crackles. Decreased air entry on both sides ABDOMEN: large abdomen, Soft, nontender, nondistended, normoactive bowel sounds. No palpable organomegaly. MUSCULOSKELETAL: No joint swelling or deformity. EXTREMITIES: No cyanosis, clubbing,. Bilateral trace pitting leg edema. NEUROLOGICAL: Gross neurological examination did not reveal any focal deficits. SKIN: No rashes. no petechiae. Results - Lab Results Most recent lab results ABG pH 7.21 (7.35-7.45) L 10/28/24 11:30 ABG pCO2 95 mmHg (35-45) H* 10/28/24 11:30 ABG pO2 87 mmHg (83-108) 10/28/24 11:30 ABG HCO3 38 mmol/L (21-25) H 10/28/24 11:30 ABG O2 Saturation 95.8 % (94-97) 10/28/24 11:30 Calcium 9.0 mg/dL (8.4-10.2) 10/28/24 06:50 Magnesium 2.3 mg/dL (1.6-2.3) 10/28/24 06:50 10/28/24 06:50 10/28/24 06:50 Assessment and Plan Assessment: 1. acute kidney injury on chronic kidney disease stage 2 likely due to over diuresis, cr. 1.2 on admission, trended to 1.6 (peak) and later trend to 1.4-> 1.3, was on IV Lasix 40 mg BID, also recently started on Farxiga, now switched to Bumex 1 mg BID 2. NSTEMI, HFrEF, CAD s/p CABG/ PCI, cardiology following, on medical management, no plans for intervention 3. Hypercapnic respiratory failure, Respiratory acidosis with compensated metabolic alkalosis, elevated bicarb to 36 , CO2 95, on BIPAP 4. normocytic anemia, Hb 12.4 Plan: - check UA and ultrasound kidney's bladder - hold IV diuretics for now and continue Bumex 1 mg BID - monitor renal function daily - monitor UO, daily weight, fluids restriction to 1.5 L per day - low sodium diet - check iron panel - continue Farxiga
--- NOTE | 2024-10-28 14:30 | P.CNPUL ---
History of Present Illness Consult date: 10/28/24 Requesting physician: Mookie E Leti Reason for consult: dyspnea, COPD, hypoxemia, obstructive sleep apnea, other Chief complaint: Lethargy/somnolence. History of present illness: Pulmonary consult dated October 28, 2024. 74-year-old male seen in room 375. The patient was admitted back on October 24 for non-ST segment elevation myocardial infarction. The patient was going to be treated medically for that. Today, a rapid response was called on this patient, as he was quite lethargic and somnolent. He was seen by one of our ICU nurses. She placed the patient on BiPAP, with settings of 12/5, 35%. Previously he was on 4 L with saturations of 94%. The patient had a blood gas done showing a pO2 of 87, pCO2 of 95, pH is 7.21. In addition, his N-terminal proBNP, on October 24, was 3620. Is not been repeated. The patient has a history of COPD, and was seen by my partner years ago, but has not been seen recently in the office. He also has a history of CABG. White count 9.3, hemoglobin 12.4, hematocrit 45, and platelet count 356,000. Sodium 136, potassium 4.9, chloride 94, CO2 36, BUN 48, creatinine 1.31. Lactic acid was 0.8. Albumin 3.8. Glucose 146. Chest x- ray is consistent with CHF. Review of Systems REVIEW OF SYSTEMS: CONSTITUTIONAL: Lethargy/somnolence. NEUROLOGIC: [ Negative.] HEENT: [ Negative.] CARDIAC: [Negative.] PULMONARY: Shortness of breath. GI: [Negative.] : [Negative.] RHEUMATOLOGIC: [ Negative.] IMMUNOLOGIC: [ Negative.] ENDOCRINE: [Negative. ] DERMATOLOGIC: [Negative.] Past Medical History Past Medical History: Coronary Artery Disease (CAD), Chest Pain / Angina, COPD, Diabetes Mellitus, Hyperlipidemia, Hypertension, Myocardial Infarction ([place]), Osteoarthritis (OA), Vascular Disorder Additional Past Medical History / Comment(s): chest discomfort with walking stairs- mld,left foot cold to touch,Hx vertigo in the past Last Myocardial Infarction Date:: 2012 History of Any Multi-Drug Resistant Organisms: None Reported Past Surgical History: Appendectomy, Coronary Bypass/CABG, Heart Catheterization, Heart Catheterization With Stent Additional Past Surgical History / Comment(s): aortogram with srinivasa lower ext runoffs,Bilateral carotid endarterectomy, quadruple CABG 2017, 4 cardiac stents, hemmorhoidectomy, procedures to veins in legs. Past Anesthesia/Blood Transfusion Reactions: No Reported Reaction Additional Past Anesthesia/Blood Transfusion Reaction / Comment(s): Vertigo. no known hx of blood transfusion Date of Last Stent Placement:: ,10/2022 Past Psychological History: No Psychological Hx Reported Smoking Status: Former smoker Past Alcohol Use History: None Reported Additional Past Alcohol Use History / Comment(s): Quit smoking in 1996, smoked 1ppd for 30 yrs. Past Drug Use History: None Reported - Past Family History Father Family Medical History: Coronary Artery Disease (CAD), Myocardial Infarction ([place]) Mother Family Medical History: Cancer, Renal Disease Brother(s) Family Medical History: Cancer Sister(s) Family Medical History: Cancer Son(s) Family Medical History: Cancer (patient has biological son and a stepson his biological son had thyroid cancer.) Medications and Allergies Home Medications Medication Instructions Recorded Confirmed Type gemfibroziL [Lopid] 600 mg PO AC-BID 11/27/20 10/25/24 History Nitroglycerin Sl Tabs [Nitrostat] 0.4 mg SL Q5M PRN 11/10/22 10/25/24 History Clopidogrel [Plavix] 75 mg PO DAILY #90 tab 11/11/22 10/25/24 Rx Furosemide [Lasix] 20 mg PO DAILY 05/07/23 10/25/24 History Metoprolol Succinate (ER) [Toprol 25 mg PO QAM 05/07/23 10/25/24 History XL] Insulin Degludec [Tresiba 80 units SQ HS 09/01/24 10/25/24 History Flextouch U-200 Pen] Isosorbide Mononitrate ER [Imdur] 30 mg PO QAM 09/01/24 10/25/24 History Aspirin 81 mg PO DAILY 09/15/24 10/25/24 History Albuterol Inhaler [Ventolin Hfa 2 puff INHALATION RT-QID PRN 10/25/24 10/25/24 History Inhaler] Gayatri Hives 180 mg PO DAILY 10/25/24 10/25/24 History Ciprofloxacin HCl [Cipro] 500 mg PO DIRECTED 10/25/24 10/25/24 History Doxazosin [Cardura] 1 mg PO HS 10/25/24 10/25/24 History Rivaroxaban [Xarelto] 2.5 mg PO BID 10/25/24 10/25/24 History Sodium Polystyrene Sulfonate 15 gm PO DAILY 10/25/24 10/25/24 History [Kayexalate] Allergies Allergy/AdvReac Type Severity Reaction Status Date / Time Penicillins Allergy Unknown Verified 10/25/24 07:39 Childhood Sulfa (Sulfonamide Allergy Rash/Hives Verified 10/25/24 07:39 Antibiotics) Physical Exam Osteopathic Statement: *. No significant issues noted on an osteopathic structural exam other than those noted in the History and Physical/Consult. Vitals: Vital Signs Temp Pulse Resp BP Pulse Ox FiO2 10/28/24 11:59 35 10/28/24 11:58 97.6 F 67 18 116/63 93 L 35 10/28/24 11:52 35 10/28/24 08:42 98.1 F 83 20 178/80 91 L 10/28/24 08:02 94 L 10/28/24 03:37 98.9 F 85 24 146/73 92 L 10/27/24 23:17 98.7 F 80 22 150/68 91 L 10/27/24 19:33 98.1 F 75 24 164/75 92 L 10/27/24 15:52 97.3 F L 73 18 130/74 93 L Intake and Output 10/27/24 10/28/24 10/28/24 22:59 06:59 14:59 Output Total 900 500 Balance -900 -500 Output: Urine 900 500 Other: Voiding Method External Catheter External Catheter Weight 131.5 kg No acute distress, lethargic, currently on BiPAP. HEENT examination is grossly unremarkable. Mucous membranes are moist. No oral lesions. Neck supple. Full range of motion. No adenopathy thyromegaly or neck vein distention. Cardiovascular examination reveals regular rhythm rate. S1-S2 normal. No S3 or S4. No discernible murmur noted. Heart sounds are distant. Lungs reveal mild scattered rhonchi and crackles. No wheezes. Breath sounds equal bilaterally. Abdomen soft bowel sounds are heard. No masses or tenderness. Extremities are intact. No cyanosis or clubbing. Trace edema. Skin is without rash or lesion. Neurologic examination reveals the patient to be very sleepy. Results - Laboratory Findings CBC and BMP: 10/28/24 06:50 10/28/24 06:50 ABG ABG pH 7.21 (7.35-7.45) L 10/28/24 11:30 ABG pCO2 95 mmHg (35-45) H* 10/28/24 11:30 ABG pO2 87 mmHg (83-108) 10/28/24 11:30 ABG O2 Saturation 95.8 % (94-97) 10/28/24 11:30 PT/INR, D-dimer PT 13.4 sec (10.0-12.5) H 10/26/24 07:32 INR 1.3 (<1.2) H 10/26/24 07:32 Abnormal lab findings: Abnormal Labs 10/24/24 10/24/24 10/24/24 20:28 20:40 20:40 Hgb 12.2 L MCHC 28.1 L RDW 17.2 H Neutrophils # Lymphocytes # PT 15.2 H INR 1.5 H APTT ABG pH ABG pCO2 ABG HCO3 ABG Total CO2 Hemoglobin Sodium Chloride Carbon Dioxide BUN 49 H Creatinine Glucose 120 H POC Glucose (mg/dL) Hemoglobin A1c Troponin I HDL Cholesterol 10/24/24 10/24/24 10/25/24 20:40 22:41 01:42 Hgb MCHC RDW Neutrophils # Lymphocytes # PT INR APTT ABG pH ABG pCO2 ABG HCO3 ABG Total CO2 Hemoglobin Sodium Chloride Carbon Dioxide BUN Creatinine Glucose POC Glucose (mg/dL) Hemoglobin A1c Troponin I 0.393 H* 0.454 H* 0.504 H* HDL Cholesterol 10/25/24 10/25/24 10/25/24 08:39 08:39 08:39 Hgb 12.5 L MCHC 27.5 L RDW 16.8 H Neutrophils # Lymphocytes # PT 14.0 H INR 1.3 H APTT ABG pH ABG pCO2 ABG HCO3 ABG Total CO2 Hemoglobin Sodium Chloride Carbon Dioxide BUN Creatinine Glucose POC Glucose (mg/dL) Hemoglobin A1c Troponin I HDL Cholesterol 24.50 L 10/25/24 10/25/24 10/25/24 08:39 08:39 14:50 Hgb MCHC RDW Neutrophils # Lymphocytes # PT 13.3 H INR 1.3 H APTT ABG pH ABG pCO2 ABG HCO3 ABG Total CO2 Hemoglobin Sodium Chloride Carbon Dioxide BUN Creatinine Glucose POC Glucose (mg/dL) Hemoglobin A1c 7.1 H Troponin I HDL Cholesterol 24.70 L 10/25/24 10/25/24 10/26/24 20:57 23:21 05:49 Hgb MCHC RDW Neutrophils # Lymphocytes # PT INR APTT 32.4 H ABG pH ABG pCO2 ABG HCO3 ABG Total CO2 Hemoglobin Sodium Chloride Carbon Dioxide BUN Creatinine Glucose POC Glucose (mg/dL) 147 H 187 H Hemoglobin A1c Troponin I HDL Cholesterol 10/26/24 10/26/24 10/26/24 07:32 07:32 07:32 Hgb 11.7 L MCHC 27.5 L RDW 16.8 H Neutrophils # 8.0 H Lymphocytes # PT 13.4 H INR 1.3 H APTT 35.0 H ABG pH ABG pCO2 ABG HCO3 ABG Total CO2 Hemoglobin Sodium Chloride Carbon Dioxide 32 H BUN 46 H Creatinine 1.62 H Glucose 155 H POC Glucose (mg/dL) Hemoglobin A1c Troponin I HDL Cholesterol 10/26/24 10/26/24 10/26/24 17:31 17:48 19:42 Hgb MCHC RDW Neutrophils # Lymphocytes # PT INR APTT 39.2 H ABG pH ABG pCO2 ABG HCO3 ABG Total CO2 Hemoglobin Sodium Chloride Carbon Dioxide BUN Creatinine Glucose POC Glucose (mg/dL) 194 H Hemoglobin A1c Troponin I 0.445 H* HDL Cholesterol 10/27/24 10/27/24 10/28/24 02:26 02:29 05:59 Hgb MCHC RDW Neutrophils # Lymphocytes # PT INR APTT 62.1 H ABG pH ABG pCO2 ABG HCO3 ABG Total CO2 Hemoglobin Sodium 136 L Chloride 96 L Carbon Dioxide 35 H BUN 46 H Creatinine 1.48 H Glucose POC Glucose (mg/dL) 61 L Hemoglobin A1c Troponin I HDL Cholesterol 10/28/24 10/28/24 10/28/24 06:50 06:50 11:27 Hgb 12.4 L MCHC 27.5 L RDW 16.8 H Neutrophils # 7.9 H Lymphocytes # 0.8 L PT INR APTT ABG pH ABG pCO2 ABG HCO3 ABG Total CO2 Hemoglobin Sodium 136 L Chloride 94 L Carbon Dioxide 36 H BUN 48 H Creatinine 1.31 H Glucose 102 H POC Glucose (mg/dL) 146 H Hemoglobin A1c Troponin I HDL Cholesterol 10/28/24 11:30 Hgb MCHC RDW Neutrophils # Lymphocytes # PT INR APTT ABG pH 7.21 L ABG pCO2 95 H* ABG HCO3 38 H ABG Total CO2 41 H Hemoglobin 11.7 L Sodium Chloride Carbon Dioxide BUN Creatinine Glucose POC Glucose (mg/dL) Hemoglobin A1c Troponin I HDL Cholesterol - Diagnostic Findings Chest x-ray: image reviewed Assessment and Plan Assessment: Acute on chronic hypercapnic respiratory failure, likely secondary to sleep apnea, and possibly COPD. Mild CHF/fluid overload. Recent admission for non-ST segment elevation myocardial infarction. Previous history of heavy tobacco use. Probable obstructive sleep apnea syndrome. History of CAD with previous bypass grafting. Diabetes mellitus. Hypertension. Hyperlipidemia. History of myocardial infarction. Osteoarthritis. Plan: Plan dated October 28, 2024. The patient is seen today in room 375. A rapid response was called on this patient, because of declining mental status. He was assessed by the ICU nurse. He was placed on BiPAP, 12/5, 35%. Previously he was on 4 L of nasal O2. Blood gases showed a pO2 of 87, pCO2 of 95, pH is 7.21. The patient used to see my partner, but has not been back in for some time. He has a history of multiple medical problems. He was admitted on October 24 with a non-ST segment elevation myocardial infarction. On that same day, his N-terminal proBNP was 3620. He is placed on DuoNebs, Symbicort, and prednisone. Additional recommendations and suggestions are forthcoming. I told his , that he should follow-up with my partner, after discharge. We will continue to follow make recommendations. Labs, x-rays, medications are reviewed. Dictation was produced using [employer] software. Please excuse any grammatical, word or spelling errors. Time with Patient: Greater than 30
[2024-10-28 16:56] LABS: Glucose,Whole Blood 84 mg/dL (70-110)
[2024-10-28] MEDS: BUMETANIDE 1 MG TAB PO SCH (17:08)
--- NOTE | 2024-10-28 17:16 | US ---
EXAMINATION TYPE: US kidneys/renal and bladder DATE OF EXAM: 10/28/2024 COMPARISON: NONE CLINICAL INDICATION: Male, 74 years old with history of KATHRYN; KATHRYN TECHNIQUE: Grayscale imaging of the bilateral kidneys and urinary bladder: FINDINGS: EXAM MEASUREMENTS: Right Kidney: 13.7x6.6x6.3 cm Left Kidney: 14.7x6.3x6.1 cm Right Kidney: several cysts again noted, largest: 8.2x6.4x6.1cm Left Kidney: several cysts again noted, largest: 3.4x4.0x3.5cm Bladder: wnl There is no evidence for hydronephrosis at this point in time. No nephrolithiasis is seen. No jodee s are identified. The urinary bladder is anechoic. small amount of ascites exam limited by large body habitus, bowel gas IMPRESSION: 1. No evidence of acute obstructive uropathy. 2. Numerous bilateral anechoic simple appearing cysts. 3. Small volume abdominal ascites incidentally noted. [facility], , 10/28/2024 5:13 PM
[2024-10-28 18:00] LABS: Glucose,Whole Blood 145 mg/dL (70-110)
[2024-10-28 18:30] LABS: Appearance,Urine Clear (Clear); Bilirubin,Urine Negative (Negative); Blood,Urine Negative (Negative); Color,Urine Yellow; Glucose,Urine (UA) 4+ (Negative); Ketones,Urine Negative (Negative); Leukocyte Esterase,Urine Negative (Negative); Nitrite,Urine Negative (Negative); PH, Urine 5.5 (5.0-8.0); Protein,Urine Trace (Negative); Specific Gravity,Urine 1.019 (1.001-1.035); Urobilinogen,Urine <2.0 mg/dL (<2.0)
[2024-10-28 20:53] LABS: Glucose,Whole Blood 156 mg/dL (70-110)
[2024-10-28] MEDS: ALPRAZolam 0.25 MG TAB PO PRN (21:05)
[2024-10-29 06:05] LABS: Glucose,Whole Blood 136 mg/dL (70-110)
[2024-10-29] MEDS: acetaZOLAMIDE 250 MG TAB PO SCH (09:00)
[2024-10-29] MEDS: metOLazone 5 MG TAB PO SCH (09:07)
[2024-10-29 11:48] LABS: Glucose,Whole Blood 121 mg/dL (70-110)
--- NOTE | 2024-10-29 12:24 | P.PN ---
Subjective 74-year-old male came with complaints of chest pressure-like sensation in the middle of the chest going on for 2 to 3 days denied any radiation associated with some shortness of breath. Denied any lightheadedness or diaphoresis. Patient has extensive cardiac history patient had a CABG in the past subsequent stenting. Patient had a stent in May 2004 and recent echocardiogram showed 60 to 65% EF. Patient has some chronic coronary occlusive disease which is being medically managed. Patient has mild elevated troponins of 0.504. EKG showing ST depressions in V3 V6 and some T wave inversions which are worse than her previous EKGs. 10/26/2024 Patient is clinically doing well patient serum creatinine went up I will discontinue IV Lasix patient clinically is not in heart failure exacerbation at this time patient has normal ejection fraction in the past patient remains on IV heparin and holding Xarelto no further intervention is being planned from cardiology perspective. Patient blood sugars are well-controlled but did not receive his long-acting insulin I will cut down the long-acting insulin to half. Patient presently does not have any pain 10/27/2024 Patient is seen in follow-up today with cardiology following. Patient continues to be short of breath and was found in the bathroom with spouse without oxygen and per nursing staff patient saturating into the 80s and reports does not wear oxygen outpatient. Patient is becoming agitated and wanting to go home and is persistent awaiting to speak with cardiology as she wants him to undergo cardiac catheterization. Per cardiology no plans for immediate cardiac cathete rization recommending adjusting medications and maximizing medical management. Will have to perform O2 assessment for possible home O2 on discharge. 10/28 Patient was more obtained this morning and more sleepy but awakes to verbal and tactile stimuli A team was called for this purpose, ABG showing evidence of elevated CO2 at 95 and low pH is 7.2 at bedside states patient has history of COPD, his admitting coordinator is Dr. Marina, he has not seen him for 2-year, he quit smoking more than 20 years ago. He is not on oxygen at home and currently on 3 to 4 L oxygen via nasal cannula Pulmonary team were consulted He still is on Bumex for CHF and bilateral leg edema All questions with the were answered. Will continue close monitoring 10/29 Patient with no chest pain His breathing is better currently on 3 L oxygen via nasal cannula saturating 95% No other new complaint Has good appetite Renal ultrasound showing no hydronephrosis no obstructive uropathy No labs from today we will check labs tomorrow Objective - Vital Signs Vital signs: Vital Signs Temp 96.2 F L 10/29/24 08:32 Pulse 61 10/29/24 08:40 Resp 22 10/29/24 08:32 BP 137/65 10/29/24 08:32 Pulse Ox 93 L 10/29/24 12:14 FiO2 35 10/29/24 08:32 Intake & Output 10/28/24 10/29/24 10/29/24 17:59 06:59 18:59 Intake Total 250 Output Total 550 Balance -300 Weight Intake: IV 10 Invasive Line 1 10 Oral 240 Output: Urine 550 Other: Voiding Method External Catheter - Exam -GENERAL: The patient is drowsy, not in any acute distress. Well developed, well nourished. HEENT: Pupils are round and equally reacting to light. EOMI. No scleral icterus. No conjunctival pallor. Normocephalic, atraumatic. No pharyngeal erythema. No thyromegaly. CARDIOVASCULAR: S1 and S2 present. No murmurs, rubs, or gallops. -PULMONARY: Chest is clear to auscultation, no wheezing , no crackles. Decreased air entry on both sides ABDOMEN: Soft, nontender, nondistended, normoactive bowel sounds. No palpable organomegaly. MUSCULOSKELETAL: No joint swelling or deformity. -EXTREMITIES: No cyanosis, clubbing,. Bilateral pitting leg edema. NEUROLOGICAL: Gross neurological examination did not reveal any focal deficits. SKIN: No rashes. no petechiae. - Labs CBC & Chem 7: 10/28/24 06:50 10/28/24 06:50 Labs: Abnormal Lab Results - Last 24 Hours (Table) 10/28/24 10/28/24 10/28/24 Range/Units 11:27 11:30 17:58 ABG pH 7.21 L (7.35-7.45) ABG pCO2 95 H* (35-45) mmHg ABG HCO3 38 H (21-25) mmol/L ABG Total CO2 41 H (19-24) mmol/L Hemoglobin 11.7 L (13.0-17.5) gm/dL POC Glucose (mg/dL) 146 H 145 H (70-110) mg/dL Urine Protein (Negative) Urine Glucose (UA) (Negative) 10/28/24 10/28/24 10/29/24 Range/Units 18:20 20:50 06:04 ABG pH (7.35-7.45) ABG pCO2 (35-45) mmHg ABG HCO3 (21-25) mmol/L ABG Total CO2 (19-24) mmol/L Hemoglobin (13.0-17.5) gm/dL POC Glucose (mg/dL) 156 H 136 H (70-110) mg/dL Urine Protein Trace H (Negative) Urine Glucose (UA) 4+ H (Negative) 10/29/24 Range/Units 11:46 ABG pH (7.35-7.45) ABG pCO2 (35-45) mmHg ABG HCO3 (21-25) mmol/L ABG Total CO2 (19-24) mmol/L Hemoglobin (13.0-17.5) gm/dL POC Glucose (mg/dL) 121 H (70-110) mg/dL Urine Protein (Negative) Urine Glucose (UA) (Negative) Assessment and Plan Assessment: - Acute COPD exacerbation - Acute hypoxic hypercapnic respiratory failure -Acute non-ST elevation MA: Patient was started on IV heparin cardiology was evaluating the patient in the past the recommended medical management with because of chronic coronary occlusive disease patient had CABG and multiple stents in the past -Acute hypoxic respiratory failure, secondary to acute on chronic heart failure with preserved EF -Acute on chronic congestive heart failure with preserved EF -History of severe peripheral artery disease with recent bilateral lower extremity intervention -Coronary disease with previous CABG as mentioned above in subsequent stenting -Acute renal failure on chronic kidney disease stage II acute renal failure secondary to excessive diuresis IV Lasix will be discontinued -Hypertension -Hyperlipidemia -COPD without any acute exacerbation -History of carotid stenosis in the past -Morbid obesity with a BMI of 41.6, will need a sleep study as an outpatient Type 2 diabetes mellitus: Resumed on his long-acting insulin at half a dose Plan: Continue with Bumex Cardiology team following Start BiPAP Pulmonary team consult, patient may benefit also from steroid, will defer to pulmonary team Monitor for fluid status, creatinine and electrolytes DVT prophylaxis: Patient is on IV heparin and will transition to Xarelto GI prophylaxis Full code
[2024-10-29 12:26] LABS: African American GFR (CKD) 41 (>60 ml/min/1.73 sqM); Blood Urea Nitrogen 48 mg/dL (9-20); Calcium 9.1 mg/dL (8.4-10.2); Chloride 92 mmol/L (98-107); Glucose 123 mg/dL (74-99); Non-African American GFR(CKD) 36 (>60 ml/min/1.73 sqM); Potassium 4.8 mmol/L (3.5-5.1); Sodium 136 mmol/L (137-145)
[2024-10-29 12:32] LABS: Anion Gap 7 mmol/L
[2024-10-29 12:39] LABS: Carbon Dioxide 37 mmol/L (22-30)
--- NOTE | 2024-10-29 13:00 | P.PN ---
Subjective Progress Note Date: 10/29/24 following the patient for KATHRYN the patient seen today, at bedside, he is more a wake and feeling better, mentation improved on BIPAP UO 2L charted / 24 hours on Bumex 1 mg BID US showed no hydronephrosis, multiple bilateral cysts, small volume ascites. Objective - Vital Signs Vital signs: Vital Signs Temp 98.0 F 10/29/24 12:28 Pulse 62 10/29/24 12:28 Resp 20 10/29/24 12:28 BP 122/60 10/29/24 12:28 Pulse Ox 93 L 10/29/24 12:28 FiO2 35 10/29/24 08:32 Intake & Output 10/28/24 10/29/24 10/29/24 17:59 06:59 18:59 Intake Total 250 Output Total 550 Balance -300 Weight Intake: IV 10 Invasive Line 1 10 Oral 240 Output: Urine 550 Other: Voiding Method External Catheter - Exam Patient is awake, comfortable, no acute distress. Examination of the heart S1 and S2 Examination of the lungs bilateral breath sounds are heard Abdomen is soft nontender Examination of lower extremities shows no significant edema - Labs CBC & Chem 7: 10/28/24 06:50 10/29/24 11:55 Labs: Abnormal Lab Results - Last 24 Hours (Table) 10/28/24 10/28/24 10/28/24 Range/Units 11:30 17:58 18:20 ABG pH 7.21 L (7.35-7.45) ABG pCO2 95 H* (35-45) mmHg ABG HCO3 38 H (21-25) mmol/L ABG Total CO2 41 H (19-24) mmol/L Hemoglobin 11.7 L (13.0-17.5) gm/dL Sodium (137-145) mmol/L Chloride (98-107) mmol/L Carbon Dioxide (22-30) mmol/L BUN (9-20) mg/dL Creatinine (0.66-1.25) mg/dL Glucose (74-99) mg/dL POC Glucose (mg/dL) 145 H (70-110) mg/dL Urine Protein Trace H (Negative) Urine Glucose (UA) 4+ H (Negative) 10/28/24 10/29/24 10/29/24 Range/Units 20:50 06:04 11:46 ABG pH (7.35-7.45) ABG pCO2 (35-45) mmHg ABG HCO3 (21-25) mmol/L ABG Total CO2 (19-24) mmol/L Hemoglobin (13.0-17.5) gm/dL Sodium (137-145) mmol/L Chloride (98-107) mmol/L Carbon Dioxide (22-30) mmol/L BUN (9-20) mg/dL Creatinine (0.66-1.25) mg/dL Glucose (74-99) mg/dL POC Glucose (mg/dL) 156 H 136 H 121 H (70-110) mg/dL Urine Protein (Negative) Urine Glucose (UA) (Negative) 10/29/24 Range/Units 11:55 ABG pH (7.35-7.45) ABG pCO2 (35-45) mmHg ABG HCO3 (21-25) mmol/L ABG Total CO2 (19-24) mmol/L Hemoglobin (13.0-17.5) gm/dL Sodium 136 L (137-145) mmol/L Chloride 92 L (98-107) mmol/L Carbon Dioxide 37 H (22-30) mmol/L BUN 48 H (9-20) mg/dL Creatinine 1.82 H (0.66-1.25) mg/dL Glucose 123 H (74-99) mg/dL POC Glucose (mg/dL) (70-110) mg/dL Urine Protein (Negative) Urine Glucose (UA) (Negative) Assessment and Plan Assessment: 1. acute kidney injury on chronic kidney disease stage 2 likely due to over diuresis, cr. 1.2 on admission, trended to 1.6 and later trend to 1.4-> 1.3, creatinine up to 1.8 today, making good UO was on IV Lasix 40 mg BID, also recently started on Farxiga, now switched to Bumex 1 mg BID , US showed no hydronephrosis, multiple bilateral cysts, small volume ascites. UA + glucose and trace proteins 2. NSTEMI, HFrEF, CAD s/p CABG/ PCI, cardiology following, on medical management, no plans for intervention 3. Hypercapnic respiratory failure, Respiratory acidosis with compensated metabolic alkalosis, elevated bicarb to 36 , CO2 95, improved on BIPAP 4. Normocytic anemia, Hb 12.4 Plan: -worsening KATHRYN, HOLD Farxiga - continue to hold IV diuretics for now , switch Bumex 1 mg daily - monitor renal function daily - monitor UO, daily weight, fluids restriction to 1.5 L per day - low sodium diet - check iron panel
--- NOTE | 2024-10-29 13:56 | P.PN ---
Subjective Progress Note Date: 10/29/24 Principal diagnosis: Non-ST segment elevation myocardial infarction. Pulmonary consult dated October 28, 2024. 74-year-old male seen in room 375. The patient was admitted back on October 24 for non-ST segment elevation myocardial infarction. The patient was going to be treated medically for that. Today, a rapid response was called on this patient, as he was quite lethargic and somnolent. He was seen by one of our ICU nurses. She placed the patient on BiPAP, with settings of 12/5, 35%. Previously he was on 4 L with saturations of 94%. The patient had a blood gas done showing a pO2 of 87, pCO2 of 95, pH is 7.21. In addition, his N-terminal proBNP, on October 24, was 3620. Is not been repeated. The patient has a history of COPD, and was seen by my partner years ago, but has not been seen recently in the office. He also has a history of CABG. White count 9.3, hemoglobin 12.4, hematocrit 45, and platelet count 356,000. Sodium 136, potassium 4.9, chloride 94, CO2 36, BUN 48, creatinine 1.31. Lactic acid was 0.8. Albumin 3.8. Glucose 146. Chest x- ray is consistent with CHF. Progress note dated October 29, 2024. 74-year-old male seen in consultation yesterday. Please see the note above. The patient had a rapid response called on him yesterday, for lethargy and somnolence. My charge nurse in the ICU, applied BiPAP, the patient improved. The patient did not need transfer to the intensive care unit. The patient did use the BiPAP device, through the night, and early this morning. Settings are 12/5, and 40%. He is currently on 3 L nasal cannula. He is much more awake and alert. His is at the bedside. The patient apparently has seen Dr. Car andino in the past, but has not seen him recently. Labs from yesterday were reviewed, including a blood gas. Current labs include a sodium 136, potassium 4.8, chlorides 92, CO2 37, BUN 48, creatinine 1.82. Glucose is 123. Calcium is 9.1. Chest x-ray from yesterday shows a pattern of CHF. Objective - Vital Signs Vital signs: Vital Signs Temp 98.0 F 10/29/24 12:28 Pulse 62 10/29/24 12:28 Resp 20 10/29/24 12:28 BP 122/60 10/29/24 12:28 Pulse Ox 93 L 10/29/24 12:28 FiO2 35 10/29/24 08:32 Intake & Output 10/28/24 10/29/24 10/29/24 17:59 06:59 18:59 Intake Total 260 Output Total 550 Balance -290 Weight Intake: IV 20 Invasive Line 1 10 Invasive Line 2 10 Oral 240 Output: Urine 550 Other: Voiding Method External Catheter - Exam No acute distress, much more awake and alert. Currently on 3 nasal cannula. HEENT examination is grossly unremarkable. Mucous membranes are moist. No oral lesions. Neck supple. Full range of motion. No adenopathy thyromegaly or neck vein d istention. Cardiovascular examination reveals regular rhythm rate. S1-S2 normal. No S3 or S4. No discernible murmur noted. Heart sounds are distant. Lungs reveal mild scattered rhonchi and crackles. No wheezes. Breath sounds equal bilaterally. Abdomen soft bowel sounds are heard. No masses or tenderness. Extremities are intact. No cyanosis or clubbing. Trace edema. Skin is without rash or lesion. Neurologic examination reveals the patient to be awake and alert. He is oriented x 3. - Labs CBC & Chem 7: 10/28/24 06:50 10/29/24 11:55 Labs: Abnormal Lab Results - Last 24 Hours (Table) 10/28/24 10/28/24 10/28/24 Range/Units 17:58 18:20 20:50 Sodium (137-145) mmol/L Chloride (98-107) mmol/L Carbon Dioxide (22-30) mmol/L BUN (9-20) mg/dL Creatinine (0.66-1.25) mg/dL Glucose (74-99) mg/dL POC Glucose (mg/dL) 145 H 156 H (70-110) mg/dL Urine Protein Trace H (Negative) Urine Glucose (UA) 4+ H (Negative) 10/29/24 10/29/24 10/29/24 Range/Units 06:04 11:46 11:55 Sodium 136 L (137-145) mmol/L Chloride 92 L (98-107) mmol/L Carbon Dioxide 37 H (22-30) mmol/L BUN 48 H (9-20) mg/dL Creatinine 1.82 H (0.66-1.25) mg/dL Glucose 123 H (74-99) mg/dL POC Glucose (mg/dL) 136 H 121 H (70-110) mg/dL Urine Protein (Negative) Urine Glucose (UA) (Negative) Assessment and Plan Assessment: Acute on chronic hypercapnic respiratory failure, likely secondary to sleep apnea, and possibly COPD. Mild CHF/fluid overload. Recent admission for non-ST segment elevation myocardial infarction. Previous history of heavy tobacco use. Probable obstructive sleep apnea syndrome. History of CAD with previous bypass grafting. Diabetes mellitus. Hypertension. Hyperlipidemia. History of myocardial infarction. Osteoarthritis. Plan: Plan dated October 28, 2024. The patient is seen today in room 375. A rapid response was called on this patient, because of declining mental status. He was assessed by the ICU nurse. He was placed on BiPAP, 12/5, 35%. Previously he was on 4 L of nasal O2. Blood gases showed a pO2 of 87, pCO2 of 95, pH is 7.21. The patient used to see my partner, but has not been back in for some time. He has a history of multiple medical problems. He was admitted on October 24 with a non-ST segment elevation myocardial infarction. On that same day, his N-terminal proBNP was 3620. He is placed on DuoNebs, Symbicort, and prednisone. Additional recommendations and suggestions are forthcoming. I told his , that he should follow-up with my partner, after discharge. We will continue to follow make recommendations. Labs, x-rays, medications are reviewed. Dictation was produced using [employer] dictation software. Please excuse any grammatical, word or spelling errors. Plan dated October 29, 2024. The patient is seen today in room 375. He was seen yesterday in consultation, in the same room. The patient was noted to have lethargy and somnolence. He was seen by one of my ICU charge nurses, and the patient was placed on BiPAP, and immediately seemed to improve. He did wear the BiPAP through the night. Currently he is on 3 L of nasal O2. His saturations are excellent. He is much more awake and alert. His is at the bedside. Labs, x-rays and medications are all reviewed. The patient used to see my partner in the past, and should go back to see him. Additional recommendations and suggestions are forthcoming. Dictation was produced using [employer] software. Please excuse any grammatical, word or spelling errors. Time with Patient: Less than 30
[2024-10-29 16:47] LABS: Glucose,Whole Blood 157 mg/dL (70-110)
--- NOTE | 2024-10-29 19:49 | P.PN ---
Subjective Progress Note Date: 10/29/24 HISTORY OF PRESENT ILLNESS: This is a 74-year-old male with a past medical history significant for coronary artery disease with previous CABG and subsequent stenting, hypertension, hyperlipidemia, former nicotine dependence, and carotid stenosis with previous bilateral intervention. Patient follows in the office with Dr. Sarmiento. We have been asked to see the patient in consultation for non-STEMI. Patient examined at the bedside in the emergency room. Patient states he has been having chest discomfort and shortness of breath for the past 2 to 3 days. He states the pain is in the middle of his chest. He denied any radiation of the pain. He states that he took nitro at home with relief of his pain. He states he has had not had any further pain since coming to the emergency room. Patient was found to have elevated troponins and was started on IV heparin. DIAGNOSTICS: - EKG reveals this mechanism with ST depression in V3V6. Repeat EKG sinus mechanism with T wave inversions in V3V6. - Chest xray interstitial lung disease changes without acute pulmonary process - Laboratory data: WBC 8.5. Hemoglobin 12.5. Platelet count 412. Sodium 139. Potassium 4.4. BUN 49. Creatinine 1.24. Troponin 0.393. 0.454. 0.504. - Current home cardiac medications include aspirin 81 mg daily, Plavix 75 mg daily, Lasix 20 mg daily, Imdur 30 mg daily, metoprolol succinate 25 mg daily, Xarelto 2.5 mg twice a day - Most recent echocardiogram obtained in October 2022 revealed ejection fraction 60 to 65%, mild mitral stenosis, mild to moderate mitral regurgitation, trace to mild tricuspid regurgitation small circumferential pericardial effusion. - Cardiac catheterization history: May 2024 with stenting of the SVG to diagonal Progress note 10/26/2024 Patient is seen and examined at bedside this a.m. With current regimen he is making good amount of urine and his kidney function is staying stable. He is not complaining of any chest pain chest pressure. However patient's family is wanting to evaluate if he would benefit from a heart catheterization. I feel that patient's coronary artery disease is stable and his troponin elevation is a flat pattern. Will repeat her troponin level. 10/27/2024 Patient is seen and examined at bedside this a.m. His chest x-ray does show increased pulmonary congestion as compared to from before. His Lasix was held in view of his elevated creatinine. Creatinine yesterday was 1.6. Today it was 1.4. His baseline appears to be around 1.2 10/28/2024 Patient was seen and the bedside. Patient's was present at the bedside. She was concerned the patient is very drowsy. Anticipated this is most likely because of obesity hypoventilation syndrome and untreated sleep apnea with hypercapnia. For this I will obtain ABG levels and requested to consult pulmonary and nephrology team. 10/29/2024 Patient is much more awake today. Appears mildly volume overloaded but improved since the time of admission. PHYSICAL EXAM: HEENT: Head is normocephalic. Pupils are equal, round. Sclerae anicteric. Mucous membranes of the mouth are moist. Neck supple. No JVD or thyromegaly LUNGS: Respirations even and unlabored. Lungs essentially clear to auscultation bilaterally. HEART: Regular rate and rhythm. S1 and S2 heard. ABDOMEN: Soft. Nondistended. Nontender. EXTREMITIES: Normal range of motion. No clubbing or cyanosis. Peripheral pulses intact. No lower extremity edema NEUROLOGIC: Awake and alert. Oriented x 3. ASSESSMENT: Non-STEMI Acute on chronic heart failure with preserved EF 60 to 65% Coronary artery disease with previous four-vessel CABG in 2017 with subsequent stenting, most recently SVG to [place], 05/2024 Severe PAD with recent bilateral lower extremity intervention Hypertension Hyperlipidemia, LDL at goal Type 2 diabetes, HbA1c 7.1 Former nicotine dependence Morbid obesity Suspect obstructive sleep apnea Carotid stenosis with previous bilateral intervention Cardiac testing Echo shows an EF of 50 to 55%, basal inferior wall hypokinesia, moderate concentric LVH, severe RV dilatation with moderate pulmonary hypertension, mild mitral and tricuspid regurgitation. PLAN: Patient has completed 48 hours of IV heparin. Discontinue IV heparin. Start Xarelto 2.5 mg daily. Continue aspirin and Plavix in view of recent lower extremity intervention. Continue Lipitor Give 1 dose of IV Lasix 60 mg. From tomorrow start him on Bumex 1 mg p.o. twice daily for 3 days and thereafter once a day. For antianginals he is on amlodipine 5 mg daily, metoprolol 25 mg twice daily, Imdur 30 mg daily, Ranexa 1000 mg twice daily. No plan for heart catheterization at this time. At this time goal is to optimize his heart failure regimen and antianginal therapy. It appears that patient's symptoms and mild elevation of troponin with a flat pattern is most likely related to his HFrEF exacerbation. If kidney function stays stable, anticipate discharge in the patient tomorrow with recommended outpatient follow-up with primary dean of faculty. Objective - Vital Signs Vital signs: Vital Signs Temp 98.0 F 10/29/24 16:41 Pulse 59 L 10/29/24 16:41 Resp 22 10/29/24 16:41 BP 130/54 10/29/24 16:41 Pulse Ox 92 L 10/29/24 16:41 FiO2 35 10/29/24 14:00 Intake & Output 10/29/24 10/29/24 10/30/24 06:59 18:59 06:59 Intake Total 260 Output Total 2550 Balance -2290 Weight Intake: IV 20 Invasive Line 1 10 Invasive Line 2 10 Oral 240 Output: Urine 2550 Other: Voiding Method External Catheter # Bowel Movements 1 - Labs CBC & Chem 7: 10/28/24 06:50 10/29/24 11:55 Labs: Abnormal Lab Results - Last 24 Hours (Table) 10/28/24 10/29/24 10/29/24 Range/Units 20:50 06:04 11:46 Sodium (137-145) mmol/L Chloride (98-107) mmol/L Carbon Dioxide (22-30) mmol/L BUN (9-20) mg/dL Creatinine (0.66-1.25) mg/dL Glucose (74-99) mg/dL POC Glucose (mg/dL) 156 H 136 H 121 H (70-110) mg/dL 10/29/24 10/29/24 Range/Units 11:55 16:43 Sodium 136 L (137-145) mmol/L Chloride 92 L (98-107) mmol/L Carbon Dioxide 37 H (22-30) mmol/L BUN 48 H (9-20) mg/dL Creatinine 1.82 H (0.66-1.25) mg/dL Glucose 123 H (74-99) mg/dL POC Glucose (mg/dL) 157 H (70-110) mg/dL
[2024-10-29 20:12] LABS: Glucose,Whole Blood 168 mg/dL (70-110)
[2024-10-29] MEDS: ALPRAZolam 0.25 MG TAB PO PRN (23:09)
[2024-10-30 02:17] LABS: Glucose,Whole Blood 128 mg/dL (70-110)
[2024-10-30 05:59] LABS: Glucose,Whole Blood 129 mg/dL (70-110)
[2024-10-30 07:59] LABS: Anisocytosis Slight; Basophils % (A) 0 %; Eosinophils # (A) 0.2 k/uL (0-0.7); Eosinophils % (A) 2 %; HCT 42.3 % (39.0-53.0); HGB 11.6 gm/dL (13.0-17.5); Hypochromasia Marked; Lymphocytes # (A) 1.1 k/uL (1.0-4.8); Lymphocytes % (A) 12 %; MCH 24.8 pg (25.0-35.0); MCHC 27.4 g/dL (31.0-37.0); MCV 90.3 fL (80.0-100.0); Mean Platelet Volume 7.8; Monocytes # (A) 0.5 k/uL (0-1.0); Monocytes % (A) 6 %; Neutrophils # (A) 7.1 k/uL (1.3-7.7); Neutrophils % (A) 79 %; Platelet Count 296 k/uL (150-450); Poikilocytosis Slight; RBC 4.68 m/uL (4.30-5.90); RDW 16.7 % (11.5-15.5)
[2024-10-30] MEDS: BUMETANIDE 1 MG TAB PO SCH (09:02)
--- NOTE | 2024-10-30 10:57 | P.PN ---
Subjective Patient is seen in follow-up for acute kidney injury. Creatinine 1.8 yesterday. Oral intake is good. On oral Bumex. Nonoliguric. Denies chest pain or shortness of breath. Vital signs are stable. General: No acute distress. HEENT: Head exam is unremarkable. On nasal cannula. LUNGS: No audible rhonchi or wheezes. HEART: Rate and Rhythm are regular. ABDOMEN: Obese, nontender. EXTREMITITES: Trace edema. Objective - Vital Signs Vital signs: Vital Signs Temp 98.2 F 10/30/24 09:00 Pulse 75 10/30/24 09:00 Resp 18 10/30/24 09:00 BP 150/67 10/30/24 09:00 Pulse Ox 92 L 10/30/24 09:00 FiO2 40 10/30/24 01:02 Intake & Output 10/29/24 10/30/24 10/30/24 18:59 06:59 18:59 Intake Total 260 120 Output Total 2550 1875 Balance -2290 -1875 120 Weight 126.4 kg Intake: IV 20 Invasive Line 1 10 Invasive Line 2 10 Oral 240 120 Output: Urine 2550 1875 Other: Voiding Method External Catheter External Catheter External Catheter # Bowel Movements 1 - Labs CBC & Chem 7: 10/30/24 07:16 10/29/24 11:55 Labs: Abnormal Lab Results - Last 24 Hours (Table) 10/29/24 10/29/24 10/29/24 Range/Units 11:46 11:55 16:43 Hgb (13.0-17.5) gm/dL MCH (25.0-35.0) pg MCHC (31.0-37.0) g/dL RDW (11.5-15.5) % Sodium 136 L (137-145) mmol/L Chloride 92 L (98-107) mmol/L Carbon Dioxide 37 H (22-30) mmol/L BUN 48 H (9-20) mg/dL Creatinine 1.82 H (0.66-1.25) mg/dL Glucose 123 H (74-99) mg/dL POC Glucose (mg/dL) 121 H 157 H (70-110) mg/dL 10/29/24 10/30/24 10/30/24 Range/Units 20:11 02:17 05:58 Hgb (13.0-17.5) gm/dL MCH (25.0-35.0) pg MCHC (31.0-37.0) g/dL RDW (11.5-15.5) % Sodium (137-145) mmol/L Chloride (98-107) mmol/L Carbon Dioxide (22-30) mmol/L BUN (9-20) mg/dL Creatinine (0.66-1.25) mg/dL Glucose (74-99) mg/dL POC Glucose (mg/dL) 168 H 128 H 129 H (70-110) mg/dL 10/30/24 Range/Units 07:16 Hgb 11.6 L (13.0-17.5) gm/dL MCH 24.8 L (25.0-35.0) pg MCHC 27.4 L (31.0-37.0) g/dL RDW 16.7 H (11.5-15.5) % Sodium (137-145) mmol/L Chloride (98-107) mmol/L Carbon Dioxide (22-30) mmol/L BUN (9-20) mg/dL Creatinine (0.66-1.25) mg/dL Glucose (74-99) mg/dL POC Glucose (mg/dL) (70-110) mg/dL Assessment and Plan Plan: Assessment: 1. Acute kidney injury secondary to ATN secondary to cardiorenal syndrome. Creatinine up to 1.8 yesterday. Creatinine noted to be as low as 0.88 in May 2024 and 0.93 in August 2024. No hydronephrosis noted on kidney ultrasound. Bilateral simple cyst noted. 2. Chronic kidney disease stage II with baseline creatinine 1-1.2. Etiology is diabetic kidney disease and cardiorenal syndrome. Trace protein on UA. 3. Acute on chronic diastolic CHF and moderate pulmonary hypertension. 4. Volume overload. Improved with diuresis. 5. Coronary disease status post CABG in 2017 with subsequent stenting. 6. Hypertension with chronic kidney disease. 7. Diabetes mellitus. Plan: Maintain Bumex. Advised patient to maintain low-salt diet and fluid restriction of about 50 ounces per day upon discharge. Morning labs pending. Avoid nephrotoxins. Follow-up outpatient 1 week postdischarge.
[2024-10-30 11:10] LABS: African American GFR (CKD) 49 (>60 ml/min/1.73 sqM); Blood Urea Nitrogen 45 mg/dL (9-20); Calcium 9.2 mg/dL (8.4-10.2); Chloride 92 mmol/L (98-107); Glucose 118 mg/dL (74-99); Magnesium 2.4 mg/dL (1.6-2.3); Non-African American GFR(CKD) 42 (>60 ml/min/1.73 sqM); Potassium 4.8 mmol/L (3.5-5.1); Sodium 136 mmol/L (137-145)
[2024-10-30 11:11] LABS: Glucose,Whole Blood 176 mg/dL (70-110)
[2024-10-30 11:16] LABS: Anion Gap 7 mmol/L
[2024-10-30 11:33] LABS: Carbon Dioxide 37 mmol/L (22-30)
[2024-10-30 12:31] VITALS: BMI 39.9
--- NOTE | 2024-10-30 14:36 | P.PN ---
Subjective Progress Note Date: 10/30/24 HISTORY OF PRESENT ILLNESS: This is a 74-year-old male with a past medical history significant for coronary artery disease with previous CABG and subsequent stenting, hypertension, hyperlipidemia, former nicotine dependence, and carotid stenosis with previous bilateral intervention. Patient follows in the office with Dr. Sarmiento. We have been asked to see the patient in consultation for non-STEMI. Patient examined at the bedside in the emergency room. Patient states he has been having chest discomfort and shortness of breath for the past 2 to 3 days. He states the pain is in the middle of his chest. He denied any radiation of the pain. He states that he took nitro at home with relief of his pain. He states he has had not had any further pain since coming to the emergency room. Patient was found to have elevated troponins and was started on IV heparin. DIAGNOSTICS: - EKG reveals this mechanism with ST depression in V3V6. Repeat EKG sinus mechanism with T wave inversions in V3V6. - Chest xray interstitial lung disease changes without acute pulmonary process - Laboratory data: WBC 8.5. Hemoglobin 12.5. Platelet count 412. Sodium 139. Potassium 4.4. BUN 49. Creatinine 1.24. Troponin 0.393. 0.454. 0.504. - Current home cardiac medications include aspirin 81 mg daily, Plavix 75 mg daily, Lasix 20 mg daily, Imdur 30 mg daily, metoprolol succinate 25 mg daily, Xarelto 2.5 mg twice a day - Most recent echocardiogram obtained in October 2022 revealed ejection fraction 60 to 65%, mild mitral stenosis, mild to moderate mitral regurgitation, trace to mild tricuspid regurgitation small circumferential pericardial effusion. - Cardiac catheterization history: May 2024 with stenting of the SVG to diagonal Progress note 10/26/2024 Patient is seen and examined at bedside this a.m. With current regimen he is making good amount of urine and his kidney function is staying stable. He is not complaining of any chest pain chest pressure. However patient's family is wanting to evaluate if he would benefit from a heart catheterization. I feel that patient's coronary artery disease is stable and his troponin elevation is a flat pattern. Will repeat her troponin level. 10/27/2024 Patient is seen and examined at bedside this a.m. His chest x-ray does show increased pulmonary congestion as compared to from before. His Lasix was held in view of his elevated creatinine. Creatinine yesterday was 1.6. Today it was 1.4. His baseline appears to be around 1.2 10/28/2024 Patient was seen and the bedside. Patient's was present at the bedside. She was concerned the patient is very drowsy. Anticipated this is most likely because of obesity hypoventilation syndrome and untreated sleep apnea with hypercapnia. For this I will obtain ABG levels and requested to consult pulmonary and nephrology team. 10/29/2024 Patient is much more awake today. Appears mildly volume overloaded but improved since the time of admission. 10/30 Patient seen and examined. Blood pressure 150/67, heart rate 75, pulse ox 92% on 3 L nasal cannula. Repeat blood work reveals hemoglobin 11.6, BUN 45 creatinine 1.6, potassium 4.8. Repeat chest x-ray ordered for tomorrow morning by pulmonary medicine. Patient denies chest pain and no shortness of breath. Patient is maintained on oral Bumex 1 mg daily. Patient is followed by pulmonary medicine and nephrology. PHYSICAL EXAM: HEENT: Head is normocephalic. Pupils are equal, round. Sclerae anicteric. Mucous membranes of the mouth are moist. Neck supple. No JVD or thyromegaly LUNGS: Respirations even and unlabored. Lungs essentially clear to auscultation bilaterally. HEART: Regular rate and rhythm. S1 and S2 heard. ABDOMEN: Soft. Nondistended. Nontender. EXTREMITIES: Normal range of motion. No clubbing or cyanosis. Peripheral pulses intact. No lower extremity edema NEUROLOGIC: Awake and alert. Oriented x 3. ASSESSMENT: Non-STEMI Acute on chronic heart failure with preserved EF 60 to 65% Coronary artery disease with previous four-vessel CABG in 2017 with subsequent stenting, most recently SVG to diagonal, 05/2024 Severe PAD with recent bilateral lower extremity intervention Hypertension Hyperlipidemia, LDL at goal Type 2 diabetes, HbA1c 7.1 Former nicotine dependence Morbid obesity Suspect obstructive sleep apnea Carotid stenosis with previous bilateral intervention Cardiac testing Echo shows an EF of 50 to 55%, basal inferior wall hypokinesia, moderate concentric LVH, severe RV dilatation with moderate pulmonary hypertension, mild mitral and tricuspid regurgitation. PLAN: Continue patient on Xarelto 2.5 mg daily, aspirin, Plavix and Lipitor Transition Bumex back to his home dose of Lasix 40 mg daily starting tomorrow Continue amlodipine 5 mg daily, metoprolol 25 mg twice daily, Imdur 30 mg daily, Ranexa 1000 mg twice daily. No plan for heart catheterization at this time. At this time goal is to optimize his heart failure regimen and antianginal therapy. It appears that patient's symptoms and mild elevation of troponin with a flat pattern is most likely related to his HFrEF exacerbation. Further recommendations as patient progresses. Nurse practitioner note has been reviewed, I agree with documented findings and plan of care. Patient was seen and examined. Objective - Vital Signs Vital signs: Vital Signs Temp 98.2 F 10/30/24 09:00 Pulse 75 10/30/24 09:00 Resp 18 10/30/24 09:00 BP 150/67 10/30/24 09:00 Pulse Ox 92 L 10/30/24 09:00 FiO2 40 10/30/24 01:02 Intake & Output 10/29/24 10/30/24 10/30/24 18:59 06:59 18:59 Intake Total 260 120 Output Total 2550 1875 Balance -2290 -1875 120 Weight 126.4 kg Intake: IV 20 Invasive Line 1 10 Invasive Line 2 10 Oral 240 120 Output: Urine 2550 1875 Other: Voiding Method External Catheter External Catheter External Catheter # Bowel Movements 1 - Labs CBC & Chem 7: 10/30/24 07:16 10/30/24 10:53 Labs: Abnormal Lab Results - Last 24 Hours (Table) 10/29/24 10/29/24 10/29/24 Range/Units 11:46 11:55 16:43 Hgb (13.0-17.5) gm/dL MCH (25.0-35.0) pg MCHC (31.0-37.0) g/dL RDW (11.5-15.5) % Sodium 136 L (137-145) mmol/L Chloride 92 L (98-107) mmol/L Carbon Dioxide 37 H (22-30) mmol/L BUN 48 H (9-20) mg/dL Creatinine 1.82 H (0.66-1.25) mg/dL Glucose 123 H (74-99) mg/dL POC Glucose (mg/dL) 121 H 157 H (70-110) mg/dL 10/29/24 10/30/24 10/30/24 Range/Units 20:11 02:17 05:58 Hgb (13.0-17.5) gm/dL MCH (25.0-35.0) pg MCHC (31.0-37.0) g/dL RDW (11.5-15.5) % Sodium (137-145) mmol/L Chloride (98-107) mmol/L Carbon Dioxide (22-30) mmol/L BUN (9-20) mg/dL Creatinine (0.66-1.25) mg/dL Glucose (74-99) mg/dL POC Glucose (mg/dL) 168 H 128 H 129 H (70-110) mg/dL 10/30/24 Range/Units 07:16 Hgb 11.6 L (13.0-17.5) gm/dL MCH 24.8 L (25.0-35.0) pg MCHC 27.4 L (31.0-37.0) g/dL RDW 16.7 H (11.5-15.5) % Sodium (137-145) mmol/L Chloride (98-107) mmol/L Carbon Dioxide (22-30) mmol/L BUN (9-20) mg/dL Creatinine (0.66-1.25) mg/dL Glucose (74-99) mg/dL POC Glucose (mg/dL) (70-110) mg/dL
[2024-10-30] MEDS: IPRATROPIUM-ALBUTEROL 3 ML NEB INHALATION SCH (15:18)
--- NOTE | 2024-10-30 16:13 | P.PN ---
Subjective Progress Note Date: 10/30/24 On 10/30/2024, I am seeing the patient for a follow-up. The patient is a morbidly obese 34-year-old male patient who carries a body mass index of 40. The patient was admitted on 10/24/2024 for an non-ST segment elevation myocardial infarction. Subsequently, the patient was respiratory failure and the patient was supported on a BiPAP for an acute on top of chronic hypercapnic respiratory failure. He was transferred to the intensive care unit and he was supported with a BiPAP. He is doing much better for now. He is awake and alert and communicating. He has a BiPAP machine at the bedside which he is using overnight and currently is on 2 L of oxygen by nasal cannula. His echocardiogram shows normal LV with ejection fraction of 50 to 55%, basal septal and inferior wall hypokinesis and RV dilatation with moderate degree of pulm hypertension with a PA pressure of 46. The chest x-ray showed CHF with cardiomegaly. The patient also has post thoracotomy changes over his sternum. The patient otherwise is doing well. No significant cough or sputum production. No chest tightness or wheezing. For now, he is on oral Lasix 40 mg p.o. daily. He is also on aspirin and long-term anticoagulation with Xarelto 2.5 mg p.o. twice a day. Maintains on Toprol-XL 25 mg p.o. twice a day and he is also on high-dose statins with Lipitor 80 mg p.o. daily. His fluid balance has been - 4.1 L over the past 24 hours. He has also developed an acute on top of chronic kidney injury. Creatinine is stable today is at 1.6 and BUN of 45. Serum bicarbonate 37. Sodium is at 136. The white cell count is at 9 with a hemoglobin 11.6 and a platelet count of 296. The patient has no home oxygen. Does not utilize any form of respiratory medications at maintenance. Does not have a home nebulizer. Altered mentation. Able to communicate normally. Objective - Vital Signs Vital signs: Vital Signs Temp 98.2 F 10/30/24 09:00 Pulse 69 10/30/24 11:35 Resp 19 10/30/24 11:35 BP 145/63 10/30/24 11:35 Pulse Ox 92 L 10/30/24 11:35 FiO2 40 10/30/24 01:02 Intake & Output 10/29/24 10/30/24 10/30/24 18:59 06:59 18:59 Intake Total 260 120 Output Total 2550 1875 1200 Balance -2290 -1875 -1080 Weight 126.4 kg 126.4 kg Intake: IV 20 Invasive Line 1 10 Invasive Line 2 10 Oral 240 120 Output: Urine 2550 1875 1200 Other: Voiding Method External Catheter External Catheter External Catheter # Voids 1 # Bowel Movements 1 1 - Exam No acute distress, much more awake and alert. Currently on 2 nasal cannula. HEENT examination is grossly unremarkable. Mucous membranes are moist. No oral lesions. Neck supple. Full range of motion. No adenopathy thyromegaly or neck vein distention. Cardiovascular examination reveals regular rhythm rate. S1-S2 normal. No S3 or S4. No discernible murmur noted. Heart sounds are distant. Lungs reveal mild scattered rhonchi and crackles. No wheezes. Breath sounds equal bilaterally. Abdomen soft bowel sounds are heard. No masses or tenderness. Extremities are intact. No cyanosis or clubbing. Trace edema. Skin is without rash or lesion. Neurologic examination reveals the patient to be awake and alert. He is oriented x 3. - Labs CBC & Chem 7: 10/30/24 07:16 10/30/24 10:53 Labs: Abnormal Lab Results - Last 24 Hours (Table) 10/29/24 10/29/24 10/30/24 Range/Units 16:43 20:11 02:17 Hgb (13.0-17.5) gm/dL MCH (25.0-35.0) pg MCHC (31.0-37.0) g/dL RDW (11.5-15.5) % Sodium (137-145) mmol/L Chloride (98-107) mmol/L Carbon Dioxide (22-30) mmol/L BUN (9-20) mg/dL Creatinine (0.66-1.25) mg/dL Glucose (74-99) mg/dL POC Glucose (mg/dL) 157 H 168 H 128 H (70-110) mg/dL Magnesium (1.6-2.3) mg/dL 10/30/24 10/30/24 10/30/24 Range/Units 05:58 07:16 10:53 Hgb 11.6 L (13.0-17.5) gm/dL MCH 24.8 L (25.0-35.0) pg MCHC 27.4 L (31.0-37.0) g/dL RDW 16.7 H (11.5-15.5) % Sodium 136 L (137-145) mmol/L Chloride 92 L (98-107) mmol/L Carbon Dioxide 37 H (22-30) mmol/L BUN 45 H (9-20) mg/dL Creatinine 1.60 H (0.66-1.25) mg/dL Glucose 118 H (74-99) mg/dL POC Glucose (mg/dL) 129 H (70-110) mg/dL Magnesium 2.4 H (1.6-2.3) mg/dL 10/30/24 Range/Units 11:07 Hgb (13.0-17.5) gm/dL MCH (25.0-35.0) pg MCHC (31.0-37.0) g/dL RDW (11.5-15.5) % Sodium (137-145) mmol/L Chloride (98-107) mmol/L Carbon Dioxide (22-30) mmol/L BUN (9-20) mg/dL Creatinine (0.66-1.25) mg/dL Glucose (74-99) mg/dL POC Glucose (mg/dL) 176 H (70-110) mg/dL Magnesium (1.6-2.3) mg/dL Assessment and Plan Plan: Acute on chronic hypercapnic respiratory failure, and acute decompensation was likely secondary to CHF/volume overload/diastolic heart failure. The patient was diuresed and the patient has been negative fluid balance of 4.1 L. He is currently off the BiPAP and he is on 2 L of oxygen by nasal cannula. CHF with preserved LV function without any significant valvular abnormalities. Coronary artery disease and the patient is status post non-ST segment elevation myocardial infarction. Acute on top of chronic kidney disease. Creatinine is at 1.6, stable Previous history of heavy tobacco use. Suspected obstructive sleep apnea syndrome. History of CAD with previous bypass grafting. Diabetes mellitus. Hypertension. Hyperlipidemia. Osteoarthritis. Plan: Continue using the BiPAP overnight with a pressure of 12 over 5 cm of water. Currently on 2 L of O2 nasal cannula The patient is currently on metoprolol 25 mg p.o. twice daily Continue aspirin and Plavix Continue Lasix 40 mg p.o. daily monitor renal function Repeat chest x-ray in the morning Continue anticoagulation with Xarelto [employer] Inspector on the case Lantus insulin 40 units along with a sign scale coverage High-dose statins with Lipitor Will follow Outpatient polysomnography due to increased suspicion for obstructive sleep apnea. Time with Patient: Greater than 30
[2024-10-30 16:35] LABS: Glucose,Whole Blood 169 mg/dL (70-110)
[2024-10-30 20:30] LABS: Glucose,Whole Blood 148 mg/dL (70-110)
--- NOTE | 2024-10-30 21:24 | P.PN ---
Progress Note - Text Progress Note Date: 10/30/24 74-year-old male came with complaints of chest pressure-like sensation in the middle of the chest going on for 2 to 3 days denied any radiation associated with some shortness of breath. Denied any lightheadedness or diaphoresis. Patient has extensive cardiac history patient had a CABG in the past subsequent stenting. Patient had a stent in May 2004 and recent echocardiogram showed 60 to 65% EF. Patient has some chronic coronary occlusive disease which is being medically managed. Patient has mild elevated troponins of 0.504. EKG showing ST depressions in V3 V6 and some T wave inversions which are worse than her previous EKGs. 10/26/2024 Patient is clinically doing well patient serum creatinine went up I will discontinue IV Lasix patient clinically is not in heart failure exacerbation at this time patient has normal ejection fraction in the past patient remains on IV heparin and holding Xarelto no further intervention is being planned from cardiology perspective. Patient blood sugars are well-controlled but did not receive his long-acting insulin I will cut down the long-acting insulin to half. Patient presently does not have any pain 10/27/2024 Patient is seen in follow-up today with cardiology following. Patient continues to be short of breath and was found in the bathroom with spouse without oxygen and per nursing staff patient saturating into the 80s and reports does not wear oxygen outpatient. Patient is becoming agitated and wanting to go home and is persistent awaiting to speak with cardiology as she wants him to undergo cardiac catheterization. Per cardiology no plans for immediate cardiac catheterization recommending adjusting medications and maximizing medical management. Will have to perform O2 assessment for possible home O2 on discharge. 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 He is not on oxygen at home and currently on 3 to 4 L oxygen via nasal cannula Pulmonary team were consulted He still is on Bumex for CHF and bilateral leg edema All questions with the were answered. Will continue close monitoring 10/29 Patient with no chest pain His breathing is better currently on 3 L oxygen via nasal cannula saturating 95% No other new complaint Has good appetite Renal ultrasound showing no hydronephrosis no obstructive uropathy No labs from today we will check labs tomorrow October 30: Up in recliner. Some improved breathing. Increase activity. Told to use incentive spirometry. No chest pain. Eating well. At home does use a cane and a walker. DuoNeb added. Active Medications Albuterol/Ipratropium (Ipratropium-Albuterol 3 Ml Neb) 3 ml INHALATION RT-Q2H PRN PRN Reason: Shortness Of Breath Or Wheezing Last Admin: 10/28/24 15:31 Dose: 3 ml Albuterol/Ipratropium (Ipratropium-Albuterol 3 Ml Neb) 3 ml INHALATION RT-QID [facility] Last Admin: 10/30/24 20:58 Dose: 3 ml Alprazolam (Alprazolam 0.25 Mg Tab) 0.25 mg PO BID PRN PRN Reason: Anxiety Last Admin: 10/30/24 20:48 Dose: 0.25 mg Amlodipine Besylate (Amlodipine 5 Mg Tab) [address] [facility] Last Admin: 10/30/24 09:03 Dose: 5 mg Aspirin (Aspirin 81 Mg) [address] [facility] Last Admin: 10/30/24 09:02 Dose: 81 mg Atorvastatin Calcium (Atorvastatin 80 Mg Tab) [address] [facility] Last Admin: 10/30/24 20:47 Dose: 80 mg Clopidogrel Bisulfate (Clopidogrel 75 Mg Tab) [address] [facility] Last Admin: 10/30/24 09:03 Dose: 75 mg Doxazosin Mesylate (Doxazosin 1 Mg Tab) [address] [facility] Last Admin: 10/30/24 20:48 Dose: 1 mg Furosemide (Furosemide 40 Mg Tab) [address] [facility] Insulin Glargine (Insulin Glargine (Lantus) 100 Unit/Ml Syr) [address] [facility] Last Admin: 10/30/24 20:48 Dose: Not Given Isosorbide Mononitrate (Isosorbide Mononitrate Er 30 Mg Tab.Er.24h) [address] [facility] Last Admin: 10/30/24 09:02 Dose: 30 mg Metoprolol Succinate (Metoprolol Succinate (Er) 25 Mg Tab.Er.24h) [address] [facility] Last Admin: 10/30/24 20:47 Dose: 25 mg Nystatin (Nystatin 100,000unit/Gm Cream 30 Gm Tube) 1 applic TOPICAL BID [facility]; Protocol Last Admin: 10/30/24 20:50 Dose: 1 applic Polysaccharide Iron Complex (Iron Ps Cmplx/Vit B12/Fa 1 Each Cap) 1 each PO DAILY [facility] Last Admin: 10/30/24 09:03 Dose: 1 each Ranolazine (Ranolazine 500 Mg Tab.Er.12h) 1,000 mg PO Q12HR [facility] Last Admin: 10/30/24 20:47 Dose: 1,000 mg Rivaroxaban (Rivaroxaban 2.5 Mg Tablet) 2.5 mg PO BID [facility]; Protocol Last Admin: 10/30/24 20:47 Dose: 2.5 mg Physical examination: VITAL SIGNS: 98.2, 75, 18, 150 x 67, 92% on 3 L GENERAL: , In a recliner EYES: Pupils equal. Conjunctiva normal. HEENT: External appearance of nose and ears normal, oral cavity grossly normal. NECK: JVD not raised; masses not palpable. HEART: First and second heart sounds are normal; no edema. LUNGS:[ Respiratory rate increased, diminished breath sounds. ABDOMEN: Soft, nontender, liver spleen not palpable, no masses palpable. PSYCH: Alert and oriented x3; mood and affect normal. NEUROLOGICAL: Cranial nerves grossly intact; no facial asymmetry, power and sensation grossly intact. INVESTIGATIONS, reviewed in the clinical context: October 30, 2024: White count 9 hemoglobin 11.6 platelets 26 sodium 136 potassium 4.8 BUN 45 creatinine 1.60 Kidney bladder ultrasound: Several cysts bilateral. No kidney stone 2D echo: EF 55 to 60%. Moderate left ventricular wall thickness. Moderate pulmonary hypertension. Assessment and plan - Acute COPD exacerbation - Acute hypoxic hypercapnic respiratory failure -Acute non-ST elevation [place]: Patient was started on IV heparin cardiology was evaluating the patient in the past the recommended medical management with because of chronic coronary occlusive disease patient had CABG and multiple stents in the past -Acute hypoxic respiratory failure, secondary to acute on chronic heart failure with preserved EF -Acute on chronic congestive heart failure with preserved EF -severe peripheral artery disease with recent bilateral lower extremity intervention -Coronary disease with previous CABG as mentioned above in subsequent stenting -Acute renal failure on chronic kidney disease stage II acute renal failure secondary to excessive diuresis IV Lasix will be discontinued -Hypertension -Hyperlipidemia -COPD without any acute exacerbation -History of carotid stenosis in the past -Morbid obesity with a BMI of 41.6, will need a sleep study as an outpatient Type 2 diabetes mellitus: Resumed on his long-acting insulin at half a dose Told to use incentive spirometry. Increase activity. Follow
[2024-10-31 06:25] LABS: Glucose,Whole Blood 145 mg/dL (70-110)
[2024-10-31 07:31] LABS: African American GFR (CKD) 56 (>60 ml/min/1.73 sqM); Blood Urea Nitrogen 40 mg/dL (9-20); Calcium 9.3 mg/dL (8.4-10.2); Chloride 94 mmol/L (98-107); Glucose 120 mg/dL (74-99); Magnesium 2.3 mg/dL (1.6-2.3); Non-African American GFR(CKD) 48 (>60 ml/min/1.73 sqM); Potassium 4.6 mmol/L (3.5-5.1); Sodium 137 mmol/L (137-145)
[2024-10-31 07:38] LABS: Anion Gap 6 mmol/L
[2024-10-31 07:47] LABS: Carbon Dioxide 37 mmol/L (22-30)
--- NOTE | 2024-10-31 08:17 | XR ---
EXAMINATION TYPE: XR chest 1V DATE OF EXAM: 10/31/2024 6:59 AM COMPARISON: Chest radiograph from 3 days prior. CLINICAL INDICATION: Male, 74 years old with history of CHF; [facility] TECHNIQUE: XR chest 1V Frontal view of the chest. FINDINGS: Lungs/Pleura: There is no evidence of pleural effusion, focal consolidation, or pneumothorax. Pulmonary vascularity: Pulmonary vascular congestion. Heart/mediastinum: Cardiomediastinal silhouette is enlarged and stable. Musculoskeletal: No acute osseous pathology. Midline sternotomy wires are noted. IMPRESSION: Cardiomegaly and mild pulmonary vascular congestion. Correlate with BNP for congestive heart failure. [facility], , 10/31/2024 8:15 AM
[2024-10-31] MEDS ORDERED: BUMETANIDE 1 MG TAB PO SCH (09:00)
[2024-10-31] MEDS: FUROSEMIDE 40 MG TAB PO SCH (09:19)
[2024-10-31 10:10] VITALS: BP 126/64; RESP 18; TEMP 98
--- NOTE | 2024-10-31 11:32 | P.PN ---
Subjective Patient is seen in follow-up for acute kidney injury. Renal function improving. Oral intake is good. On oral Bumex. Nonoliguric. Denies chest pain or shortness of breath. Vital signs are stable. General: No acute distress. HEENT: Head exam is unremarkable. On room air. LUNGS: No audible rhonchi or wheezes. HEART: Rate and Rhythm are regular. ABDOMEN: Obese, nontender. EXTREMITITES: Trace edema. Objective - Vital Signs Vital signs: Vital Signs Temp 98 F 10/31/24 09:20 Pulse 68 10/31/24 11:09 Resp 18 10/31/24 09:20 BP 126/64 10/31/24 09:20 Pulse Ox 94 L 10/31/24 09:20 FiO2 30 10/31/24 00:04 Intake & Output 10/30/24 10/31/24 10/31/24 18:59 06:59 18:59 Intake Total 370 Output Total 2100 1550 Balance -1730 -1550 Weight 126.4 kg 122.7 kg Intake: Oral 370 Output: Urine 2100 1550 Other: Voiding Method External Catheter External Catheter Toilet # Voids 1 # Bowel Movements 1 - Labs CBC & Chem 7: 10/30/24 07:16 10/31/24 06:41 Labs: Abnormal Lab Results - Last 24 Hours (Table) 10/30/24 10/30/24 10/30/24 Range/Units 10:53 16:29 20:29 Sodium 136 L (137-145) mmol/L Chloride 92 L (98-107) mmol/L Carbon Dioxide 37 H (22-30) mmol/L BUN 45 H (9-20) mg/dL Creatinine 1.60 H (0.66-1.25) mg/dL Glucose 118 H (74-99) mg/dL POC Glucose (mg/dL) 169 H 148 H (70-110) mg/dL Magnesium 2.4 H (1.6-2.3) mg/dL 10/31/24 10/31/24 Range/Units 06:24 06:41 Sodium (137-145) mmol/L Chloride 94 L (98-107) mmol/L Carbon Dioxide 37 H (22-30) mmol/L BUN 40 H (9-20) mg/dL Creatinine 1.43 H (0.66-1.25) mg/dL Glucose 120 H (74-99) mg/dL POC Glucose (mg/dL) 145 H (70-110) mg/dL Magnesium (1.6-2.3) mg/dL Assessment and Plan Plan: Assessment: 1. Acute kidney injury secondary to ATN secondary to cardiorenal syndrome. Renal function improving. Creatinine noted to be as low as 0.88 in May 2024 and 0.93 in August 2024. No hydronephrosis noted on kidney ultrasound. Bilateral simple cyst noted. 2. Chronic kidney disease stage II with baseline creatinine 1-1.2. Etiology is diabetic kidney disease and cardiorenal syndrome. Trace protein on UA. 3. Acute on chronic diastolic CHF and moderate pulmonary hypertension. 4. Volume overload. Improved with diuresis. 5. Coronary disease status post CABG in 2017 with subsequent stenting. 6. Hypertension with chronic kidney disease. 7. Diabetes mellitus. Plan: Maintain Bumex. Advised patient to maintain low-salt diet and fluid restriction of about 50 ounces per day upon discharge. Avoid nephrotoxins. Follow-up outpatient 1 week postdischarge.
[2024-10-31 11:36] LABS: Glucose,Whole Blood 177 mg/dL (70-110)
[2024-10-31 12:16] VITALS: PULSE 69
--- NOTE | 2024-10-31 13:44 | P.PN ---
Subjective Progress Note Date: 10/31/24 HISTORY OF PRESENT ILLNESS: This is a 74-year-old male with a past medical history significant for coronary artery disease with previous CABG and subsequent stenting, hypertension, hyperlipidemia, former nicotine dependence, and carotid stenosis with previous bilateral intervention. Patient follows in the office with Dr. Sarmiento. We have been asked to see the patient in consultation for non-STEMI. Patient examined at the bedside in the emergency room. Patient states he has been having chest discomfort and shortness of breath for the past 2 to 3 days. He states the pain is in the middle of his chest. He denied any radiation of the pain. He states that he took nitro at home with relief of his pain. He states he has had not had any further pain since coming to the emergency room. Patient was found to have elevated troponins and was started on IV heparin. DIAGNOSTICS: - EKG reveals this mechanism with ST depression in V3V6. Repeat EKG sinus mechanism with T wave inversions in V3V6. - Chest xray interstitial lung disease changes without acute pulmonary process - Laboratory data: WBC 8.5. Hemoglobin 12.5. Platelet count 412. Sodium 139. Potassium 4.4. BUN 49. Creatinine 1.24. Troponin 0.393. 0.454. 0.504. - Current home cardiac medications include aspirin 81 mg daily, Plavix 75 mg daily, Lasix 20 mg daily, Imdur 30 mg daily, metoprolol succinate 25 mg daily, Xarelto 2.5 mg twice a day - Most recent echocardiogram obtained in October 2022 revealed ejection fraction 60 to 65%, mild mitral stenosis, mild to moderate mitral regurgitation, trace to mild tricuspid regurgitation small circumferential pericardial effusion. - Cardiac catheterization history: May 2024 with stenting of the SVG to diagonal Progress note 10/26/2024 Patient is seen and examined at bedside this a.m. With current regimen he is making good amount of urine and his kidney function is staying stable. He is not complaining of any chest pain chest pressure. However patient's family is wanting to evaluate if he would benefit from a heart catheterization. I feel that patient's coronary artery disease is stable and his troponin elevation is a flat pattern. Will repeat her troponin level. 10/27/2024 Patient is seen and examined at bedside this a.m. His chest x-ray does show increased pulmonary congestion as compared to from before. His Lasix was held in view of his elevated creatinine. Creatinine yesterday was 1.6. Today it was 1.4. His baseline appears to be around 1.2 10/28/2024 Patient was seen and the bedside. Patient's was present at the bedside. She was concerned the patient is very drowsy. Anticipated this is most likely because of obesity hypoventilation syndrome and untreated sleep apnea with hypercapnia. For this I will obtain ABG levels and requested to consult pulmonary and nephrology team. 10/29/2024 Patient is much more awake today. Appears mildly volume overloaded but improved since the time of admission. 10/30 Patient seen and examined. Blood pressure 150/67, heart rate 75, pulse ox 92% on 3 L nasal cannula. Repeat blood work reveals hemoglobin 11.6, BUN 45 creatinine 1.6, potassium 4.8. Repeat chest x-ray ordered for tomorrow morning by pulmonary medicine. Patient denies chest pain and no shortness of breath. Patient is maintained on oral Bumex 1 mg daily. Patient is followed by pulmonary medicine and nephrology. 10/31 Patient seen and examined. Patient states he is feeling much better today. A chest x-ray performed this morning reveals cardiomegaly with mild pulmonary vascular congestion. Blood pressure 126/64, heart rate 69, pulse ox 92% on room air. Repeat blood work reveals BUN 40 creatinine 1.43. Yesterday, we transi tion patient back to oral Lasix which was his home dose. PHYSICAL EXAM: HEENT: Head is normocephalic. Pupils are equal, round. Sclerae anicteric. Mucous membranes of the mouth are moist. Neck supple. No JVD or thyromegaly LUNGS: Respirations even and unlabored. Lungs essentially clear to auscultation bilaterally. HEART: Regular rate and rhythm. S1 and S2 heard. ABDOMEN: Soft. Nondistended. Nontender. EXTREMITIES: Normal range of motion. No clubbing or cyanosis. Peripheral pulses intact. No lower extremity edema NEUROLOGIC: Awake and alert. Oriented x 3. ASSESSMENT: Non-STEMI Acute on chronic heart failure with preserved EF 60 to 65% Coronary artery disease with previous four-vessel CABG in 2017 with subsequent stenting, most recently SVG to diagonal, 05/2024 Severe PAD with recent bilateral lower extremity intervention Hypertension Hyperlipidemia, LDL at goal Type 2 diabetes, HbA1c 7.1 Former nicotine dependence Morbid obesity Suspect obstructive sleep apnea Carotid stenosis with previous bilateral intervention Cardiac testing Echo shows an EF of 50 to 55%, basal inferior wall hypokinesia, moderate concentric LVH, severe RV dilatation with moderate pulmonary hypertension, mild mitral and tricuspid regurgitation. PLAN: Continue patient on Xarelto 2.5 mg daily, aspirin, Plavix and Lipitor Continue Lasix 40 mg daily usually Continue amlodipine 5 mg daily, metoprolol 25 mg twice daily, Imdur 30 mg daily, Ranexa 1000 mg twice daily. No plan for heart catheterization at this time. At this time goal is to optimize his heart failure regimen and antianginal therapy. It appears that patient's symptoms and mild elevation of troponin with a flat pattern is most likely related to his HFrEF exacerbation. Further recommendations as patient progresses. Patient is cleared for discharge from cardiology perspective. No further cardiac workup at this time. Patient will follow-up in the office with Dr. Sarmiento in 2 weeks. Nurse practitioner note has been reviewed, I agree with documented findings and plan of care. Patient was seen and examined. Objective - Vital Signs Vital signs: Vital Signs Temp 99.0 F 10/31/24 03:30 Pulse 64 10/31/24 07:57 Resp 17 10/31/24 03:30 BP 124/76 10/31/24 03:30 Pulse Ox 91 L 10/31/24 03:30 FiO2 30 10/31/24 00:04 Intake & Output 10/30/24 10/31/24 10/31/24 18:59 06:59 18:59 Intake Total 370 Output Total 2100 1550 Balance -1730 -1550 Weight 126.4 kg 122.7 kg Intake: Oral 370 Output: Urine 2100 1550 Other: Voiding Method External Catheter External Catheter # Voids 1 # Bowel Movements 1 - Labs CBC & Chem 7: 10/30/24 07:16 10/31/24 06:41 Labs: Abnormal Lab Results - Last 24 Hours (Table) 10/30/24 10/30/24 10/30/24 Range/Units 10:53 11:07 16:29 Sodium 136 L (137-145) mmol/L Chloride 92 L (98-107) mmol/L Carbon Dioxide 37 H (22-30) mmol/L BUN 45 H (9-20) mg/dL Creatinine 1.60 H (0.66-1.25) mg/dL Glucose 118 H (74-99) mg/dL POC Glucose (mg/dL) 176 H 169 H (70-110) mg/dL Magnesium 2.4 H (1.6-2.3) mg/dL 10/30/24 10/31/24 10/31/24 Range/Units 20:29 06:24 06:41 Sodium (137-145) mmol/L Chloride 94 L (98-107) mmol/L Carbon Dioxide 37 H (22-30) mmol/L BUN 40 H (9-20) mg/dL Creatinine 1.43 H (0.66-1.25) mg/dL Glucose 120 H (74-99) mg/dL POC Glucose (mg/dL) 148 H 145 H (70-110) mg/dL Magnesium (1.6-2.3) mg/dL
--- NOTE | 2024-10-31 17:02 | P.PN ---
Subjective Progress Note Date: 10/31/24 On 10/30/2024, I am seeing the patient for a follow-up. The patient is a morbidly obese 34-year-old male patient who carries a body mass index of 40. The patient was admitted on 10/24/2024 for an non-ST segment elevation myocardial infarction. Subsequently, the patient was respiratory failure and the patient was supported on a BiPAP for an acute on top of chronic hypercapnic respiratory failure. He was transferred to the intensive care unit and he was supported with a BiPAP. He is doing much better for now. He is awake and alert and communicating. He has a BiPAP machine at the bedside which he is using overnight and currently is on 2 L of oxygen by nasal cannula. His echocardiogram shows normal LV with ejection fraction of 50 to 55%, basal septal and inferior wall hypokinesis and RV dilatation with moderate degree of pulm hypertension with a PA pressure of 46. The chest x-ray showed CHF with cardiomegaly. The patient also has post thoracotomy changes over his sternum. The patient otherwise is doing well. No significant cough or sputum production. No chest tightness or wheezing. For now, he is on oral Lasix 40 mg p.o. daily. He is also on aspirin and long-term anticoagulation with Xarelto 2.5 mg p.o. twice a day. Maintains on Toprol-XL 25 mg p.o. twice a day and he is also on high-dose statins with Lipitor 80 mg p.o. daily. His fluid balance has been - 4.1 L over the past 24 hours. He has also developed an acute on top of chronic kidney injury. Creatinine is stable today is at 1.6 and BUN of 45. Serum bicarbonate 37. Sodium is at 136. The white cell count is at 9 with a hemoglobin 11.6 and a platelet count of 296. The patient has no home oxygen. Does not utilize any form of respiratory medications at maintenance. Does not have a home nebulizer. Altered mentation. Able to communicate normally. Today's evaluation of 10/31/2024, the patient is feeling very well. Denies having any specific complaints. The patient is currently on room air oxygen. He has been diuresed adequately and the patient is currently on oral Lasix 40 mg p.o. daily. The patient is also on a combination of Plavix and anticoagulation with Xarelto. Remains on metoprolol 25 mg p.o. twice a day. Labs from today shows a drop in the creatinine down to 1.4 with a BUN of 40. Serum bicarbonate 37. Sodium levels at 137. Objective - Vital Signs Vital signs: Vital Signs Temp 98 F 10/31/24 09:20 Pulse 64 10/31/24 11:22 Resp 18 10/31/24 09:20 BP 126/64 10/31/24 09:20 Pulse Ox 94 L 10/31/24 09:20 FiO2 30 10/31/24 00:04 Intake & Output 10/30/24 10/31/24 10/31/24 18:59 06:59 18:59 Intake Total 370 Output Total 2100 1550 Balance -1730 -1550 Weight 126.4 kg 122.7 kg Intake: Oral 370 Output: Urine 2100 1550 Other: Voiding Method External Catheter External Catheter Toilet # Voids 1 # Bowel Movements 1 - Exam No acute distress, much more awake and alert. Currently on 2 nasal cannula. HEENT examination is grossly unremarkable. Mucous membranes are moist. No oral lesions. Neck supple. Full range of motion. No adenopathy thyromegaly or neck vein distention. Cardiovascular examination reveals regular rhythm rate. S1-S2 normal. No S3 or S4. No discernible murmur noted. Heart sounds are distant. Lungs reveal mild scattered rhonchi and crackles. No wheezes. Breath sounds equal bilaterally. Abdomen soft bowel sounds are heard. No masses or tenderness. Extremities are intact. No cyanosis or clubbing. Trace edema. Skin is without rash or lesion. Neurologic examination reveals the patient to be awake and alert. He is oriented x 3. - Labs CBC & Chem 7: 10/30/24 07:16 10/31/24 06:41 Labs: Abnormal Lab Results - Last 24 Hours (Table) 10/30/24 10/30/24 10/31/24 Range/Units 16:29 20:29 06:24 Chloride (98-107) mmol/L Carbon Dioxide (22-30) mmol/L BUN (9-20) mg/dL Creatinine (0.66-1.25) mg/dL Glucose (74-99) mg/dL POC Glucose (mg/dL) 169 H 148 H 145 H (70-110) mg/dL 10/31/24 Range/Units 06:41 Chloride 94 L (98-107) mmol/L Carbon Dioxide 37 H (22-30) mmol/L BUN 40 H (9-20) mg/dL Creatinine 1.43 H (0.66-1.25) mg/dL Glucose 120 H (74-99) mg/dL POC Glucose (mg/dL) (70-110) mg/dL Assessment and Plan Plan: Acute on chronic hypercapnic respiratory failure, and acute decompensation was likely secondary to CHF/volume overload/diastolic heart failure. The patient was diuresed and the patient has been negative fluid balance of 4.1 L. He is currently off the BiPAP and he is on room air oxygen. The patient has been d iuresed adequately and the patient is currently on oral Lasix CHF with preserved LV function without any significant valvular abnormalities. Coronary artery disease and the patient is status post non-ST segment elevation myocardial infarction. Acute on top of chronic kidney disease. Creatinine continues to improve Previous history of heavy tobacco use. Suspected obstructive sleep apnea syndrome. History of CAD with previous bypass grafting. Diabetes mellitus. Hypertension. Hyperlipidemia. Osteoarthritis. Plan: Continue using the BiPAP overnight with a pressure of 12 over 5 cm of water. Will need an outpatient polysomnography Continue diuresis and the patient is currently on oral Lasix 40 mg p.o. daily The patient is currently on metoprolol 25 mg p.o. 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 Possible discharge today.
--- NOTE | 2024-10-31 18:37 | P.DS ---
Providers Date of admission: 10/24/24 21:44 Expected date of discharge: 10/31/24 Attending physician: Xu Hoang Consults: 10/24/24 21:43 Consult Physician Urgent Consulting Provider: Ramin Yung Consult Reason/Comments: NSTEMI Do you want consulting provider notified?: Yes 10/28/24 11:34 Consult Physician Routine Consulting Provider: Raoul Parada Consult Reason/Comments: ARF Do you want consulting provider notified?: Yes 10/28/24 11:43 Consult Physician Routine Consulting Provider: Johnathan Storey Consult Reason/Comments: CO2 retention, decreased LOC Do you want consulting provider notified?: Yes Primary care physician: [facility] Course: 74-year-old male came with complaints of chest pressure-like sensation in the middle of the chest going on for 2 to 3 days denied any radiation associated with some shortness of breath. Denied any lightheadedness or diaphoresis. Patient has extensive cardiac history patient had a CABG in the past subsequent stenting. Patient had a stent in May 2004 and recent echocardiogram showed 60 to 65% EF. Patient has some chronic coronary occlusive disease which is being medically managed. Patient has mild elevated troponins of 0.504. EKG showing ST depressions in V3 V6 and some T wave inversions which are worse than her previous EKGs. 10/26/2024 Patient is clinically doing well patient serum creatinine went up I will discontinue IV Lasix patient clinically is not in heart failure exacerbation at this time patient has normal ejection fraction in the past patient remains on IV heparin and holding Xarelto no further intervention is being planned from cardiology perspective. Patient blood sugars are well-controlled but did not receive his long-acting insulin I will cut down the long-acting insulin to half. Patient presently does not have any pain 10/27/2024 Patient is seen in follow-up today with cardiology following. Patient continues to be short of breath and was found in the bathroom with spouse without oxygen and per nursing staff patient saturating into the 80s and reports does not wear oxygen outpatient. Patient is becoming agitated and wanting to go home and is persistent awaiting to speak with cardiology as she wants him to undergo cardiac catheterization. Per cardiology no plans for immediate cardiac catheterization recommending adjusting medications and maximizing medical management. Will have to perform O2 assessment for possible home O2 on discharge. 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 Marina, he has not seen him for 2-year, he quit smoking more than 20 years ago. He is not on oxygen at home and currently on 3 to 4 L oxygen via nasal cannula Pulmonary team were consulted He still is on Bumex for CHF and bilateral leg edema All questions with the were answered. Will continue close monitoring 10/29 Patient with no chest pain His breathing is better currently on 3 L oxygen via nasal cannula saturating 95% No other new complaint Has good appetite Renal ultrasound showing no hydronephrosis no obstructive uropathy No labs from today we will check labs tomorrow October 30: Up in recliner. Some improved breathing. Increase activity. Told to use incentive spirometry. No chest pain. Eating well. At home does use a cane and a walker. Radha added. October 31: Doing much better. Breathing much improved. 94% room air. Will discharge with Symbicort. COPD component. Patient follow-up with Dr. Christiansen from pulmonary and Dr. Sarmiento from cardio. Questions answered. Physical examination: VITAL SIGNS: 98, 69, 18, 126 x 64, 94% room air GENERAL: , In a recliner, comfortable EYES: Pupils equal. Conjunctiva normal. HEENT: External appearance of nose and ears normal, oral cavity grossly normal. NECK: JVD not raised; masses not palpable. HEART: First and second heart sounds are normal; no edema. LUNGS:[ Respiratory rate normal, improved air entry. ABDOMEN: Soft, nontender, liver spleen not palpable, no masses palpable. PSYCH: Alert and oriented x3; mood and affect normal. NEUROLOGICAL: Cranial nerves grossly intact; no facial asymmetry, power and sensation grossly intact. INVESTIGATIONS, reviewed in the clinical context: October 31: Potassium 4.6. BUN 40 creatinine 1.43 October 30, 2024: White count 9 hemoglobin 11.6 platelets 26 sodium 136 potassium 4.8 BUN 45 creatinine 1.60 Kidney bladder ultrasound: Several cysts bilateral. No kidney stone 2D echo: EF 55 to 60%. Moderate left ventricular wall thickness. Moderate pulmonary hypertension. Assessment and plan - Acute COPD exacerbation - Acute hypoxic hypercapnic respiratory failure: Improved -Acute non-ST elevation MN: Patient was started on IV heparin cardiology was evaluating the patient in the past the recommended medical management with because of chronic coronary occlusive disease patient had CABG and multiple stents in the past -Acute hypoxic respiratory failure, secondary to acute on chronic heart failure with preserved EF -Acute on chronic congestive heart failure with preserved EF -severe peripheral artery disease with recent bilateral lower extremity intervention -Coronary disease with previous CABG as mentioned above in subsequent stenting -Acute renal failure on chronic kidney disease stage II acute renal failure secondary to excessive diuresis IV Lasix will be discontinued -Hypertension -Hyperlipidemia -History of carotid stenosis in the past -Obesity with BMI of 38.8, will need a sleep study as an outpatient Type 2 diabetes mellitus: Chronically on insulin Disposition: Home Plan - Discharge Summary Discharge Rx Participant: Yes New Discharge Prescriptions: New Atorvastatin [Lipitor] 80 mg PO HS #30 tab amLODIPine [Norvasc] 5 mg PO DAILY #30 tab Ranolazine [Ranexa] 1,000 mg PO Q12HR #60 tab Budesonide/Formoterol Fumarate [Symbicort 80-4.5 Mcg Inhaler] 1 puff INHALATION BID #10.2 gm Continue Nitroglycerin Sl Tabs [Nitrostat] 0.4 mg SL Q5M PRN PRN Reason: Chest Pain Clopidogrel [Plavix] 75 mg PO DAILY #90 tab Isosorbide Mononitrate ER [Imdur] 30 mg PO QAM Aspirin 81 mg PO DAILY Doxazosin [Cardura] 1 mg PO HS Rivaroxaban [Xarelto] 2.5 mg PO BID Changed Furosemide [Lasix] 40 mg PO DAILY #0 Metoprolol Succinate (ER) [Toprol XL] 25 mg PO BID #60 tab Insulin Degludec [Tresiba Flextouch U-200 Pen] 40 units SQ HS #0 Albuterol Inhaler [Ventolin Hfa Inhaler] 2 puff INHALATION TID #1 Discontinued gemfibroziL [Lopid] 600 mg PO AC-BID Ciprofloxacin HCl [Cipro] 500 mg PO DIRECTED Sodium Polystyrene Sulfonate [Kayexalate] 15 gm PO DAILY No Action Gayatri Hives 180 mg PO DAILY Discharge Medication List Nitroglycerin Sl Tabs [Nitrostat] 0.4 mg SL Q5M PRN 11/10/22 [History] Clopidogrel [Plavix] 75 mg PO DAILY #90 tab 11/11/22 [Rx] Isosorbide Mononitrate ER [Imdur] 30 mg PO QAM 09/01/24 [History] Aspirin 81 mg PO DAILY 09/15/24 [History] Gayatri Hives 180 mg PO DAILY 10/25/24 [History] Doxazosin [Cardura] 1 mg PO HS 10/25/24 [History] Rivaroxaban [Xarelto] 2.5 mg PO BID 10/25/24 [History] Albuterol Inhaler [Ventolin Hfa Inhaler] 2 puff INHALATION TID #1 10/31/24 [Rx] Atorvastatin [Lipitor] 80 mg PO HS #30 tab 10/31/24 [Rx] Budesonide/Formoterol Fumarate [Symbicort 80-4.5 Mcg Inhaler] 1 puff INHALATION BID #10.2 gm 10/31/24 [Rx] Furosemide [Lasix] 40 mg PO DAILY #0 10/31/24 [Rx] Insulin Degludec [Tresiba Flextouch U-200 Pen] 40 units SQ HS #0 10/31/24 [Rx] Metoprolol Succinate (ER) [Toprol XL] 25 mg PO BID #60 tab 10/31/24 [Rx] Ranolazine [Ranexa] 1,000 mg PO Q12HR #60 tab 10/31/24 [Rx] amLODIPine [Norvasc] 5 mg PO DAILY #30 tab 10/31/24 [Rx] Follow up Appointment(s)/Referral(s): David Palomares MD [Primary Care Provider] - 1-2 days Tate Sarmiento MD [STAFF PHYSICIAN] - 11/14/24 3:15 pm Radha Christiansen MD [STAFF PHYSICIAN] - 11/22/24 9:00 am Discharge Disposition: HOME SELF-CARE
== END 2024-10-31 15:33 | disposition home or self-care (01) | DRG 280 ==
LOC: EC 20:07 → 3SCARD 21:44 → 1SOBS 21:56 → 3SCARD 21:57
PROVIDERS: ADMIT Hospitalist; ATTEND Hospitalist
PROC: 5A09457 Assistance with Respiratory Ventilation, 24-96 Consecutive Hours, Continuous Positive Airway Pressure (ICD-10-PCS; principal; 2024-10-24)
DX: I21.4 Non-ST elevation (NSTEMI) myocardial infarction (principal); I50.33 Acute on chronic diastolic (congestive) heart failure; J96.21 Acute and chronic respiratory failure with hypoxia; J96.22 Acute and chronic respiratory failure with hypercapnia; N17.0 Acute kidney failure with tubular necrosis; E87.4 Mixed disorder of acid-base balance; D63.1 Anemia in chronic kidney disease; J44.1 Chronic obstructive pulmonary disease with (acute) exacerbation; I13.0 Hypertensive heart and chronic kidney disease with heart failure and stage 1 through stage 4 chronic kidney disease, or unspecified chronic kidney disease; E11.22 Type 2 diabetes mellitus with diabetic chronic kidney disease; E66.01 Morbid (severe) obesity due to excess calories; I27.20 Pulmonary hypertension, unspecified; I65.29 Occlusion and stenosis of unspecified carotid artery; I08.1 Rheumatic disorders of both mitral and tricuspid valves; Z68.41 Body mass index [BMI] 40.0-44.9, adult; K57.32 Diverticulitis of large intestine without perforation or abscess without bleeding; E11.51 Type 2 diabetes mellitus with diabetic peripheral angiopathy without gangrene; Z79.4 Long term (current) use of insulin; Z11.52 Encounter for screening for COVID-19; E78.5 Hyperlipidemia, unspecified; F17.210 Nicotine dependence, cigarettes, uncomplicated; G47.33 Obstructive sleep apnea (adult) (pediatric); I25.10 Atherosclerotic heart disease of native coronary artery without angina pectoris; N18.2 Chronic kidney disease, stage 2 (mild); I25.2 Old myocardial infarction; K21.9 Gastro-esophageal reflux disease without esophagitis; K22.4 Dyskinesia of esophagus; N28.1 Cyst of kidney, acquired; E66.9 Obesity, unspecified; M19.90 Unspecified osteoarthritis, unspecified site; Z68.38 Body mass index [BMI] 38.0-38.9, adult; T50.2X5A Adverse effect of carbonic-anhydrase inhibitors, benzothiadiazides and other diuretics, initial encounter; Z71.6 Tobacco abuse counseling; Z79.01 Long term (current) use of anticoagulants; Z79.02 Long term (current) use of antithrombotics/antiplatelets; Z79.82 Long term (current) use of aspirin; Z79.899 Other long term (current) drug therapy; Z82.49 Family history of ischemic heart disease and other diseases of the circulatory system; Z95.1 Presence of aortocoronary bypass graft; Z95.5 Presence of coronary angioplasty implant and graft; X58.XXXA Exposure to other specified factors, initial encounter; Z88.0 Allergy status to penicillin; Z88.2 Allergy status to sulfonamides; Z87.19 Personal history of other diseases of the digestive system
CPT/HCPCS: 36415; 71045; 71046; 76770; 80048; 80053; 80061; 81003; 82805; 83036; 83605; 83735; 83880; 84484; 85025; 85610; 85730; 87636; 93005; 93306; 94640; 94660; 94760; 96365; 96366; 96375; 96376; 99291

== ENCOUNTER → 2025-02-08 | Day surgery (SDC) | payer MEDICARE ==
[2025-02-07 10:19] VITALS: BMI 33.3
[~2025-02-08] MED LIST changes: +ALBUTEROL NEBULIZED 2.5 MG/3 ML INHALATION SCH; +ALPRAZolam 0.25 MG TAB PO PRN; +ALPRAZolam 0.5 MG TAB PO PRN; +ASPIRIN 325 MG TAB PO ONE; +ASPIRIN 81 MG PO SCH; +CLOPIDOGREL 75 MG TAB PO SCH; +DOXAZOSIN 1 MG TAB PO SCH; +FUROSEMIDE 20 MG TAB PO SCH; +GEMFIBROZIL 600 MG PO SCH; +HEPARIN SODIUM,PORCINE (1 ML) 2,500 UNIT in SODIUM CHLORIDE 0.9% 250 ML IRRIGATION PRN; +HEPARIN SODIUM,PORCINE 10,000 UNIT in SODIUM CHLORIDE 0.9% 1,000 ML IRRIGATION PRN; -HYDROmorphone 0.5 MG/0.5 ML SYRINGE IVP PRN; +ISOSORBIDE MONONITRATE ER 30 MG TAB.ER.24H PO SCH; +LORATADINE 10 MG TAB PO SCH; +METOPROLOL SUCCINATE (ER) 25 MG TAB.ER.24H PO SCH; +NITROGLYCERIN SL TABS 0.4 MG TAB SUBLINGUAL PRN; +NON FORMULARY DRUG (Ubidecarenone [Co Q-10] 30 MG Capsule) PO SCH; +RANOLAZINE 500 MG TAB.ER.12H PO SCH; +RIVAROXABAN 2.5 MG TABLET PO SCH; +RX INFO: IV CONTRAST WAS GIVEN 1 EACH MISC MISCELLANE PRN; +SODIUM CHLORIDE 0.9% 1,000 ML IV SCH; +SODIUM CHLORIDE 0.9% 1,000 ML in EMPTY BAG 1 BAG IV SCH; +SYMBICORT 80-4.5 MCG INHALER INHALATION SCH; +TAMSULOSIN 0.4 MG CAP.ER.24H PO SCH; +lisinopriL 20 MG TAB PO SCH
[2025-02-08] MEDS: IV FLUID CONTINUATION 1,000 ML IV ONE ×2 (06:30→14:19)
[2025-02-08] MEDS: VERAPAMIL SYRINGE (5 MG/10 ML) INTRAARTER ONE (07:37)
[2025-02-08] MEDS: MIDAZOLAM 2 MG/2 ML VIAL IVP ONE (07:37)
[2025-02-08] MEDS: LIDOCAINE 1% INJ 10MG/ML (30 ML VIAL-PF) SQ ONE (07:37)
[2025-02-08] MEDS: fentaNYL (PF) 50 MCG/1 ML VIAL IVP ONE (07:37)
[2025-02-08] MEDS: HEPARIN SODIUM 1,000 UN/ML (10ML VL) IVP ONE (07:42)
[2025-02-08] MEDS: IOPAMIDOL-300 100ML BTL INJ ONE (08:14)
--- NOTE | 2025-02-08 09:15 | CC ---
CARDIAC CATHETERIZATION REPORT INDICATIONS: This is a patient with known coronary artery disease, status post prior bypass surgery with DAY to LAD, venous graft to diagonal and RCA and prior angioplasty with stent placement of the venous graft to the right coronary artery, who presented to me with progressively worsening angina with both at rest and with activity. He is already on maximal medical therapy. Due to this, we advised him to undergo cardiac catheterization. The patient understands risks, benefits, and alternatives including the risk of contrast-induced nephropathy. His GFR is 40 and we hydrated him prior to coming in and we will hydrate him afterwards. PROCEDURE NOTE: After obtaining informed consent, left heart catheterization and coronary angiogram were performed, where the left radial artery using size 4 Coty catheters. The patient received moderate conscious sedation. Total sedation time was 30 minutes. Left radial artery access was obtained using Seldinger technique, 6-Sinhala sheath was placed. Catheters and wires were floated into the ascending aorta under fluoroscopic guidance. The patient received verapamil and heparin per protocol. FINDINGS: 1. Hemodynamics: Left ventricular end-diastolic pressure is 7 mm. There is no significant gradient across the aortic valve. 2. Left ventriculogram: Left ventriculogram is not performed. 3. Angiographic data: a.Hoopa coronary arteries: Right coronary artery is totally occluded in its midportion. Left main coronary artery appears calcified, but is free of significant stenosis. Divides into left anterior descending coronary artery and circumflex coronary artery. LAD is totally occluded in its midportion. There is a proximal atrial 90% stenosis. Ostial circ shows a 90% stenosis. Venous graft to the right coronary artery shows a focal 95% stenosis in its midportion. The proximal stent appears patent. There is long segment of diffuse disease. Venous graft to the diagonal could not be selectively engaged. DAY to LAD was patent. CONCLUSION: Severe three-vessel coronary artery disease with patent DAY to LAD, patent venous graft to the right coronary artery is a long segment of focal 95% stenosis in its midportion. Venous graft to the diagonal was not engaged. PLAN: I reviewed angiographic data with Dr. Yung, the mica splitter, who performed his cardiac catheterization before and we opted to bring him back next week to attempt angioplasty of the venous graft to the right and at the same time, he is going to find the vein graft to the diagonal. The patient will be hydrated today and will be brought back next week given the concern about his renal insufficiency. MMODL / IJN: [id number] /
[2025-02-08 17:04] VITALS: RESP 16
[2025-02-08 17:05] VITALS: PULSE 76
[2025-02-08 17:17] VITALS: BP 78/45; TEMP 98.8
== END ==
LOC: CATHCVL 05:47
PROVIDERS: ATTEND Internal Medicine Cardiovascular Disease
DX: I25.710 Atherosclerosis of autologous vein coronary artery bypass graft(s) with unstable angina pectoris (principal); I25.84 Coronary atherosclerosis due to calcified coronary lesion; I25.82 Chronic total occlusion of coronary artery; Z95.5 Presence of coronary angioplasty implant and graft; E11.22 Type 2 diabetes mellitus with diabetic chronic kidney disease; I12.9 Hypertensive chronic kidney disease with stage 1 through stage 4 chronic kidney disease, or unspecified chronic kidney disease; N18.2 Chronic kidney disease, stage 2 (mild); E11.51 Type 2 diabetes mellitus with diabetic peripheral angiopathy without gangrene; Z95.820 Peripheral vascular angioplasty status with implants and grafts; E78.2 Mixed hyperlipidemia; I65.23 Occlusion and stenosis of bilateral carotid arteries; J44.9 Chronic obstructive pulmonary disease, unspecified; I34.0 Nonrheumatic mitral (valve) insufficiency; Z79.01 Long term (current) use of anticoagulants; Z79.02 Long term (current) use of antithrombotics/antiplatelets; Z79.82 Long term (current) use of aspirin; Z79.4 Long term (current) use of insulin; Z79.51 Long term (current) use of inhaled steroids; Z79.899 Other long term (current) drug therapy; Z87.891 Personal history of nicotine dependence; Z88.6 Allergy status to analgesic agent; Z88.1 Allergy status to other antibiotic agents; Z88.0 Allergy status to penicillin; Z88.2 Allergy status to sulfonamides; Z82.49 Family history of ischemic heart disease and other diseases of the circulatory system
CPT/HCPCS: 93459; C1769; C1894; J2250; J2003; J1644; Q9967; J3010

== ENCOUNTER 2025-02-14 12:10 | Day surgery (SDC) | payer MEDICARE ==
[2025-02-13 12:52] VITALS: BMI 33.3
[~2025-02-14 12:10] MED LIST changes: -ALBUTEROL NEBULIZED 2.5 MG/3 ML INHALATION SCH; -ASPIRIN 325 MG TAB PO ONE; -ASPIRIN 81 MG PO SCH; -CLOPIDOGREL 75 MG TAB PO SCH; -DOXAZOSIN 1 MG TAB PO SCH; -FUROSEMIDE 20 MG TAB PO SCH; -GEMFIBROZIL 600 MG PO SCH; -ISOSORBIDE MONONITRATE ER 30 MG TAB.ER.24H PO SCH; -LORATADINE 10 MG TAB PO SCH; -METOPROLOL SUCCINATE (ER) 25 MG TAB.ER.24H PO SCH; -NON FORMULARY DRUG (Ubidecarenone [Co Q-10] 30 MG Capsule) PO SCH; -RANOLAZINE 500 MG TAB.ER.12H PO SCH; -RIVAROXABAN 2.5 MG TABLET PO SCH; -RX INFO: IV CONTRAST WAS GIVEN 1 EACH MISC MISCELLANE PRN; -SODIUM CHLORIDE 0.9% 1,000 ML IV SCH; -SODIUM CHLORIDE 0.9% 1,000 ML in EMPTY BAG 1 BAG IV SCH; -SYMBICORT 80-4.5 MCG INHALER INHALATION SCH; -TAMSULOSIN 0.4 MG CAP.ER.24H PO SCH; -lisinopriL 20 MG TAB PO SCH
[2025-02-14] MEDS: IV FLUID CONTINUATION 1,000 ML IV ONE (12:22)
[2025-02-14] MEDS: ATORVASTATIN 80 MG TAB PO STA (12:28)
[2025-02-14] MEDS: ASPIRIN 325 MG TAB PO STA (12:28)
[2025-02-14] MEDS: SODIUM CHLORIDE 0.9% 1,000 ML in EMPTY BAG 1 BAG IV SCH ×2 (12:29→19:42)
[2025-02-14 12:44] LABS: Glucose,Whole Blood 106 mg/dL (70-110)
[2025-02-14 12:59] LABS: Basophils # (A) 0.05 10*3/uL (0.00-0.10); Basophils % (A) 0.6 %; Eosinophils # (A) 0.15 10*3/uL (0.04-0.35); Eosinophils % (A) 1.9 %; HCT 34.2 % (39.6-50.0); HGB 10.7 g/dL (13.0-17.0); Lymphocytes # (A) 1.44 10*3/uL (0.90-5.00); Lymphocytes % (A) 18.6 %; MCH 29.2 pg (27.0-32.0); MCHC 31.3 g/dL (32.0-37.0); MCV 93.2 fL (80.0-97.0); Mean Platelet Volume 9.2 fL (9.5-12.2); Monocytes # (A) 0.41 10*3/uL (0.20-1.00); Monocytes % (A) 5.3 %; Neutrophils # (A) 5.68 10*3/uL (1.80-7.70); Neutrophils % (A) 73.2 %; Platelet Count 327 10*3/uL (140-440); RBC 3.67 10*6/uL (4.40-5.60); RDW 17.4 % (11.5-14.5); WBC 7.76 10*3/uL (4.50-10.00)
[2025-02-14 13:10] LABS: African American GFR (CKD) 57 (>60 ml/min/1.73 sqM); Anion Gap 10 mmol/L; Blood Urea Nitrogen 39 mg/dL (9-20); Carbon Dioxide 22 mmol/L (22-30); Chloride 109 mmol/L (98-107); Glucose 101 mg/dL (74-99); Potassium 4.8 mmol/L (3.5-5.1); Sodium 141 mmol/L (137-145)
[2025-02-14 13:11] LABS: Calcium 9.9 mg/dL (8.4-10.2); Non-African American GFR(CKD) 49 (>60 ml/min/1.73 sqM)
[2025-02-14] MEDS: LIDOCAINE 1% INJ 10MG/ML (30 ML VIAL-PF) SQ ONE (16:05)
[2025-02-14] MEDS: VERAPAMIL SYRINGE (5 MG/10 ML) INTRAARTER ONE (16:07)
[2025-02-14] MEDS: MIDAZOLAM 2 MG/2 ML VIAL IVP ONE (16:07)
[2025-02-14] MEDS: HEPARIN SODIUM 1,000 UN/ML (10ML VL) IVP ONE (16:09)
[2025-02-14] MEDS: fentaNYL (PF) 50 MCG/1 ML VIAL IVP ONE (16:10)
[2025-02-14] MEDS: niCARdipine Syringe (1,000 mcg/10 mL) INTRACORON ONE (16:55)
[2025-02-14] MEDS: NITROGLYCERIN 1000MCG/10ML SYRINGE INTRACORON ONE (16:55)
[2025-02-14] MEDS: IOPAMIDOL-370 100ML BTL INTRATHECA ONE (16:57)
[2025-02-14] MEDS: TICAGRELOR 90 MG TAB PO ONE (16:57)
[2025-02-14] MEDS ORDERED: ZOLPIDEM 5 MG TAB PO PRN (17:02)
[2025-02-14] MEDS ORDERED: NITROGLYCERIN SL TABS 0.4 MG TAB SUBLINGUAL PRN (17:02)
[2025-02-14] MEDS ORDERED: RX INFO: IV CONTRAST WAS GIVEN 1 EACH MISC MISCELLANE PRN (17:02)
[2025-02-14] MEDS ORDERED: ATROPINE SULFATE 0.1 MG/ML 10ML SYRINGE IV PRN (17:02)
[2025-02-14] MEDS ORDERED: MAG HYDROX/AL HYDROX/SIMETH 30 ML CUP PO PRN (17:02)
--- NOTE | 2025-02-14 17:06 | P.PCN ---
Date of Procedure: 02/14/25 Operative Findings: PERCUTANEOUS CORONARY INTERVENTION Performing physician Ramin Yung M.D. Procedure Performed: 1. Successful stenting of the mid and proximal SVG to RCA using 4.0 x 48 mm x 2 Xience drug-eluting stent with an excellent angiographic results. 2. Adjunctive use of IVUS 3. Ultrasound-guided access of the right radial artery Indication: Symptomatic 74-year-old gentleman with critical disease involving the SVG to RCA Approach: Right radial artery Complications: None Level of Sedation: Moderate with a sedation length of 53 minutes Procedure Discussion: Please refer to diagnostic heart catheterization performed few weeks ago. The right radial artery was cannulated using micropuncture technique under ultrasound guidance the micropuncture wire passed easily then I placed a 6 Mongolian 11 cm sheath at the right radial artery. I gave the patient 2 mg of verapamil intra-arterial and 6000 units of heparin intravenous with continuous ACT monitoring. Subsequently I did engage the SVG to RCA using an AL 0.75 guiding catheter. It was wired using a whisper wire with the backup support of Corsair catheter. After that I did wired the graft with a korin wire and that was a run-through wire. IVUS was performed and showed a diameter between 3.5 to 4 mm. Predilatation was performed using 2.5 mm balloon before I deployed in the mid SVG to RCA 4.0 x 48 and proximally 4.0 x 48 as well. IVUS was performed and angiogram was performed and both showed excellent results and the procedure was completed with no complication. There was JALEESA-3 flow in the graft. Postprocedure Management: 1. Switch the patient from Plavix to Brilinta 2. Dual antiplatelet therapy for at least 6-month 3. Follow-up with the patient
[2025-02-14] MEDS: HEPARIN SODIUM,PORCINE 10,000 UNIT in SODIUM CHLORIDE 0.9% 1,000 ML IRRIGATION ONE (17:15)
[2025-02-14] MEDS: HEPARIN SODIUM,PORCINE (1 ML) 2,500 UNIT in SODIUM CHLORIDE 0.9% 250 ML IRRIGATION ONE (17:17)
[2025-02-14] MEDS: DEXTROSE 5% IN WATER 100 ML with AMIODARONE 150 MG IV ONE (17:23)
[2025-02-14 19:59] LABS: Glucose,Whole Blood 174 mg/dL (70-110)
[2025-02-14] MEDS: lisinopriL 20 MG TAB PO SCH (20:33)
[2025-02-14] MEDS: METOPROLOL SUCCINATE (ER) 25 MG TAB.ER.24H PO SCH (20:33)
[2025-02-14] MEDS: RANOLAZINE 500 MG TAB.ER.12H PO SCH (20:33)
[2025-02-14] MEDS: FENOFIBRATE 160 MG TAB PO SCH (20:55)
[2025-02-14] MEDS: TICAGRELOR 90 MG TAB PO SCH (20:55)
[2025-02-14] MEDS: DOXAZOSIN 1 MG TAB PO SCH (20:55)
[2025-02-14] MEDS: SYMBICORT 80-4.5 MCG INHALER INHALATION SCH (20:57)
[2025-02-14] MEDS: ALBUTEROL NEBULIZED 2.5 MG/3 ML INHALATION SCH (20:57)
[2025-02-15 06:09] LABS: Glucose,Whole Blood 82 mg/dL (70-110)
[2025-02-15 06:21] LABS: African American GFR (CKD) 54 (>60 ml/min/1.73 sqM); Non-African American GFR(CKD) 47 (>60 ml/min/1.73 sqM)
[2025-02-15 07:52] VITALS: BP 126/63; RESP 16; TEMP 98.4
[2025-02-15] MEDS ORDERED: NON FORMULARY DRUG (Ubidecarenone [Co Q-10] 30 MG Capsule) PO SCH (09:00)
[2025-02-15] MEDS: LORATADINE 10 MG TAB PO SCH (09:00)
[2025-02-15] MEDS ORDERED: FUROSEMIDE 20 MG TAB PO SCH (09:00)
[2025-02-15] MEDS: ASPIRIN 81 MG PO SCH (09:00)
[2025-02-15] MEDS: TAMSULOSIN 0.4 MG CAP.ER.24H PO SCH (09:00)
[2025-02-15] MEDS: ISOSORBIDE MONONITRATE ER 30 MG TAB.ER.24H PO SCH (09:00)
[2025-02-15 09:46] VITALS: PULSE 75
== END 2025-02-15 11:22 | disposition home or self-care (01) ==
LOC: CATHCVL 12:10 → 6NMEDSUR 16:57 → CATHCVL 02-15 11:22
PROVIDERS: ATTEND Internal Medicine Interventional Cardiology
DX: I25.810 Atherosclerosis of coronary artery bypass graft(s) without angina pectoris (principal); I73.9 Peripheral vascular disease, unspecified; I10 Essential (primary) hypertension; E78.2 Mixed hyperlipidemia; Z88.0 Allergy status to penicillin; Z88.6 Allergy status to analgesic agent; Z88.2 Allergy status to sulfonamides; Z88.1 Allergy status to other antibiotic agents; Z79.899 Other long term (current) drug therapy
CPT/HCPCS: 94640; 92978; 80048; 82565; 85025; 99152; 99153; C9604; C1769 ×4; C1887 ×4; C1894; C1725; C1874; C1753; J2250; J1644 ×3; J0282; J2003; Q9967; J3010; J2305

== ENCOUNTER 2025-02-25 20:26 | Observation (INO) | payer MEDICARE ==
--- NOTE | 2025-02-25 20:40 | ED ---
Chest Pain HPI - General Stated Complaint: Bi-Lateral Arm Pain, Diaphoretic Time Seen by Provider: 02/25/25 20:30 Source: RN notes reviewed, old records reviewed - History of Present Illness Initial Comments: This is a 74-year-old male this male presents today for evaluation of chest pain. Patient has history of chest pain history of stents history of heart disease, patient was today with chest pain diaphoresis chest pain to the back with known history of cardiac disease feels like prior history of heart disease. MD Complaint: chest pain -: hour(s) Onset: during rest Pain Location: substernal, left chest Pain Radiation: back Severity: moderate Severity scale (1-10): 4 Quality: tightness, heaviness Consistency: constant Improves With: nothing Worsens With: nothing Anginal Symptoms: diaphoresis, dyspnea, sense of impending doom, other Other Symptoms: palpitations Treatments Prior to Arrival: none - Related Data Home Medications Medication Instructions Recorded Confirmed Nitroglycerin Sl Tabs [Nitrostat] 0.4 mg SL Q5M PRN 11/10/22 02/26/25 Isosorbide Mononitrate ER [Imdur] 30 mg PO DAILY 09/01/24 02/26/25 Aspirin 81 mg PO DAILY 09/15/24 02/26/25 Doxazosin [Cardura] 1 mg PO HS 10/25/24 02/26/25 Fexofenadine HCl [Gayatri Allergy] 180 mg PO DAILY 10/25/24 02/26/25 Rivaroxaban [Xarelto] 2.5 mg PO BID 10/25/24 02/26/25 Albuterol Inhaler [Ventolin Hfa 2 puff INHALATION RT-BID 02/07/25 02/26/25 Inhaler] Furosemide [Lasix] 20 mg PO DAILY 02/07/25 02/26/25 Insulin Degludec [Tresiba See Protocol SQ HS PRN 02/07/25 02/26/25 Flextouch U-200 Pen] Metoprolol Succinate (ER) [Toprol 12.5 mg PO BID 02/07/25 02/26/25 XL] Ranolazine [Ranexa] 1,000 mg PO Q12HR 02/07/25 02/26/25 Tamsulosin HCl [Flomax] 0.4 mg PO DAILY 02/07/25 02/26/25 Ubidecarenone [Co Q-10] 100 mg PO DAILY 02/07/25 02/26/25 gemfibroziL [Lopid] 600 mg PO AC-BID 02/07/25 02/26/25 lisinopriL [Prinivil] 20 mg PO BID 02/07/25 02/26/25 Clopidogrel [Plavix] 75 mg PO HS 02/08/25 02/26/25 Budesonide/Formoterol Fumarate 1 puff INHALATION RT-BID 02/26/25 02/26/25 [Symbicort 80-4.5 Mcg Inhaler] Allergies Allergy/AdvReac Type Severity Reaction Status Date / Time Penicillins Allergy Unknown Verified 02/26/25 10:21 Childhood Sulfa (Sulfonamide Allergy Rash/Hives Verified 02/26/25 10:21 Antibiotics) Review of Systems ROS Statement: Those systems with pertinent positive or pertinent negative responses have been documented in the HPI. ROS Other: All systems not noted in ROS Statement are negative. EKG Findings - EKG Comments: EKG Findings:: EKG sinus 69 MD 107 QRS 78 QTc 460 - EKG Results: EKG: interpreted by DELGADO, no acute changes (EKG repeat there is sinus 66 MD 192 QRS 94 QTc 420) Past Medical History Past Medical History: Coronary Artery Disease (CAD), Chest Pain / Angina, Heart Failure, COPD, Diabetes Mellitus, Hyperlipidemia, Hypertension, Myocardial Infarction ([place]), Osteoarthritis (OA), Renal Disease, Vascular Disorder Additional Past Medical History / Comment(s): chest pain and sob with activity w/ stairs, current O2 sats 92-95% RA @ home, pt follows 60 ounces of fluid per day @ home. Pt anxious regarding O2 admin.(states was given too much O2 w/ last admission & had a lot breathing problems),closely monitors blood sugar tid at home, started with kidney problems October 2024-stated was told that it was from having multipl vascular procedures/surgeries/anesthesia close together, chest discomfort with walking stairs- mld,Hx vertigo in the past Last Myocardial Infarction Date:: History of Any Multi-Drug Resistant Organisms: None Reported Past Surgical History: Appendectomy, Cholecystectomy, Coronary Bypass/CABG, Heart Catheterization, Heart Catheterization With Stent Additional Past Surgical History / Comment(s): aortogram with srinivasa lower ext runoffs,Bilateral carotid endarterectomy, quadruple CABG 2017, 4 cardiac stents, hemmorhoidectomy, procedures to veins in legs,last heartcath 02-08-25 Past Anesthesia/Blood Transfusion Reactions: No Reported Reaction Additional Past Anesthesia/Blood Transfusion Reaction / Comment(s): Vertigo. no known hx of blood transfusion Date of Last Stent Placement:: Past Psychological History: No Psychological Hx Reported Smoking Status: Former smoker Past Alcohol Use History: None Reported Additional Past Alcohol Use History / Comment(s): Quit smoking in 1996, smoked 1ppd for 30 yrs. Past Drug Use History: None Reported - Past Family History Father Family Medical History: Coronary Artery Disease (CAD), Myocardial Infarction ([place]) Mother Family Medical History: Cancer, Renal Disease Brother(s) Family Medical History: Cancer Sister(s) Family Medical History: Cancer Son(s) Family Medical History: Cancer (patient has biological son and a stepson his biological son had thyroid cancer.) General Exam General appearance: alert, in no apparent distress Head exam: Present: atraumatic, normocephalic, normal inspection Eye exam: Present: normal appearance, PERRL, EOMI. Absent: scleral icterus, conjunctival injection, periorbital swelling ENT exam: Present: normal exam, mucous membranes moist Neck exam: Present: normal inspection. Absent: tenderness, meningismus, lymphadenopathy Respiratory exam: Present: normal lung sounds bilaterally. Absent: respiratory distress, wheezes, rales, rhonchi, stridor Cardiovascular Exam: Present: regular rate, normal rhythm, normal heart sounds. Absent: systolic murmur, diastolic murmur, rubs, gallop, clicks GI/Abdominal exam: Present: soft, normal bowel sounds. Absent: distended, tenderness, guarding, rebound, rigid Extremities exam: Present: normal inspection, full ROM, normal capillary refill. Absent: tenderness, pedal edema, joint swelling, calf tenderness Back exam: Present: normal inspection Neurological exam: Present: alert, oriented X3, CN II-XII intact Psychiatric exam: Present: normal affect, normal mood Skin exam: Present: warm, dry, intact, normal color. Absent: rash Course Vital Signs 02/25/25 02/26/25 02/26/25 20:44 04:46 09:30 Temperature 98.9 F Pulse Rate 72 62 67 Respiratory 17 17 20 Rate Blood Pressure 126/61 126/67 155/74 O2 Sat by Pulse 96 95 97 Oximetry 02/26/25 02/26/25 02/26/25 14:02 14:13 14:18 Temperature 98.7 F Pulse Rate 60 60 61 Respiratory 20 Rate Blood Pressure 117/52 O2 Sat by Pulse 100 Oximetry - Reevaluation(s) Reevaluation #1: 02/25/25 22:50 Medical records reviewed Reevaluation #2: 02/25/25 23:23 Patient chest pain is improved but still persistent here in the ER Reevaluation #3: 02/25/25 23:23 Patient informed of results and questions answered Reevaluation #4: 02/25/25 22:50 Was pt. sent in by a medical professional or institution (FELICITA Farrell, RECREATION COUNSELOR, urgent care, hospital, or [facility]...) When possible be specific @ -no Did you speak to anyone other than the patient for history (EMS, parent, family, police, friend...)? What history was obtained from this source @ -no Did you review nursing and triage notes (agree or disagree)? Why? @ -agree Are old charts reviewed (outside hosp., previous admission, EMS record, old EKG, old radiological studies, urgent care reports/EKG's, [facility] records)? Report findings @ -yes Differential Diagnosis (chest pain, altered mental status, abdominal pain women, abdominal pain men, vaginal bleeding, weakness, fever, dyspnea, syncope, headach e, dizziness, GI bleed, back pain, seizure, CVA, palpatations, mental health, musculoskeletal)? @ -prior EKG interpreted by me (3pts min.). @ -yes X-rays interpreted by me (1pt min.). @ -yes negative for acute disease CT interpreted by me (1pt min.). @ -no U/S interpreted by me (1pt. min.). @ -no What testing was considered but not performed or refused? (CT, X-rays, U/S, labs)? Why? @ -none What meds were considered but not given or refused? Why? @ -none Did you discuss the management of the patient with other professionals (professionals i.e. FELICITA Farrell, RECREATION COUNSELOR, lab, RT, psych nurse, social work therapist, bottom bleacher, teacher, property utilization officer, case maker)? Give summary @ -no Was smoking cessation discussed for >3mins.? @ -no Was critical care preformed (if so, how long)? @ -yes31 Were there social determinants of health that impacted care today? How? (Homelessness, low income, unemployed, alcoholism, drug addiction, transportation, low edu. Level, literacy, decrease access to med. care, [facility], rehab)? @ -none Was there de-escalation of care discussed even if they declined (Discuss DNR or withdrawal of care, Hospice)? DNR status @ -no What co-morbidities impacted this encounter? (DM, HTN, Smoking, COPD, CAD, Cancer, CVA, ARF, Chemo, Hep., AIDS, mental health diagnosis, sleep apnea, morbid obesity)? @ -none Was patient admitted / discharged? Hospital course, mention meds given and ro john, prescriptions, significant lab abnormalities, going to OR and other pertinent info. @ - 74 male will be admitted for acute chest pain observation Admitted Undiagnosed new problem with uncertain prognosis? @ -no Drug Therapy requiring intensive monitoring for toxicity (Heparin, Nitro, Insulin, Cardizem)? @ -no Were any procedures done? @ -no Diagnosis/symptom? @ -Chest pain Acute, or Chronic, or Acute on Chronic? @ -Acute Uncomplicated (without systemic symptoms) or Complicated (systemic symptoms)? @ -Complicated Side effects of treatment? @ -no Exacerbation, Progression, or Severe Exacerbation? @ -exacerbation Poses a threat to life or bodily function? How? (Chest pain, [place], [place], pneumonia, PE, COPD, DKA, ARF, appy, cholecystitis, CVA, Diverticulitis, Homicidal, Suicidal, threat to staff... and all critical care pts) @ -yes with chest pain Reevaluation #5: Differential Chest Pain: Stable Angina, Unstable Angina, STEMI, NSTEMI Aortic Dissection, Pneumothorax, Musculoskeletal, Esophageal Spasm GERD, Cholecystitis, Pancreatitis, Zoster, this is not meant to be an all-inclusive list. - Consultations Consultation #1: Spoke with Dr. Roberson agrees to admit this patient Chest Pain [facility] 74 male will be admitted for acute chest pain observation Critical Care Time Critical Care Time: Yes Total Critical Care Time: 31 Disposition Clinical Impression: Chest pain, S/P CABG (coronary artery bypass graft) Disposition: ADMITTED IP TO THIS HOSP Is patient prescribed a controlled substance at d/c from ED?: No Time of Disposition: 23:00
[2025-02-25 20:55] LABS: Basophils # (A) 0.05 10*3/uL (0.00-0.10); Basophils % (A) 0.5 %; Eosinophils # (A) 0.17 10*3/uL (0.04-0.35); Eosinophils % (A) 1.7 %; HCT 36.4 % (39.6-50.0); HGB 11.5 g/dL (13.0-17.0); Lymphocytes # (A) 1.55 10*3/uL (0.90-5.00); Lymphocytes % (A) 15.3 %; MCH 29.5 pg (27.0-32.0); MCHC 31.6 g/dL (32.0-37.0); MCV 93.3 fL (80.0-97.0); Monocytes # (A) 0.49 10*3/uL (0.20-1.00); Monocytes % (A) 4.8 %; Neutrophils # (A) 7.70 10*3/uL (1.80-7.70); Neutrophils % (A) 76.1 %; Platelet Count 361 10*3/uL (140-440); RBC 3.90 10*6/uL (4.40-5.60); RDW 16.5 % (11.5-14.5); WBC 10.12 10*3/uL (4.50-10.00)
[2025-02-25 21:17] LABS: INR 1.1 (<1.2); Partial Thromboplastin Time 27.7 sec (22.0-30.0); Prothrombin Time 12.1 sec (10.0-12.5)
[2025-02-25 21:22] LABS: ALT 12 U/L (4-49); AST 23 U/L (17-59); African American GFR (CKD) 52 (>60 ml/min/1.73 sqM); Albumin 4.1 g/dL (3.5-5.0); Alkaline Phosphatase 81 U/L (38-126); Anion Gap 13 mmol/L; Blood Urea Nitrogen 51 mg/dL (9-20); Calcium 10.5 mg/dL (8.4-10.2); Carbon Dioxide 23 mmol/L (22-30); Chloride 105 mmol/L (98-107); Glucose 103 mg/dL (74-99); Magnesium 2.2 mg/dL (1.6-2.3); Non-African American GFR(CKD) 45 (>60 ml/min/1.73 sqM); Potassium 5.5 mmol/L (3.5-5.1); Sodium 141 mmol/L (137-145); Total Protein 7.4 g/dL (6.3-8.2)
[2025-02-25] MEDS ORDERED: NITROGLYCERIN SL TABS 0.4 MG TAB SUBLINGUAL PRN (23:21)
[2025-02-25] MEDS ORDERED: MORPHINE SULFATE 4 MG/ML SYRINGE IV PRN (23:21)
[2025-02-25] MEDS: ASPIRIN 81 MG PO STA (23:31)
--- NOTE | 2025-02-26 00:45 | XR ---
EXAM: XR Chest, 2 Views CLINICAL HISTORY: cp TECHNIQUE: Frontal and lateral views of the chest. COMPARISON: No relevant prior studies available. FINDINGS: Lungs: Small amount of bibasilar atelectasis. Pleural space: Unremarkable. Mediastinum: Unremarkable. Normal mediastinal contour. Bones/joints: Sternal wires. Vasculature: Calcified aorta. IMPRESSION: No acute findings in the chest.
[2025-02-26] MEDS: CLOPIDOGREL 75 MG TAB PO SCH (01:26)
[2025-02-26] MEDS: METOPROLOL SUCCINATE (ER) 25 MG TAB.ER.24H PO SCH (01:26)
[2025-02-26] MEDS: RIVAROXABAN 2.5 MG TABLET PO SCH (04:49)
[2025-02-26 08:51] LABS: Cholesterol 184.00 mg/dL (0.00-200.00); HDL Cholesterol 29.50 mg/dL (40.00-60.00); LDL Cholesterol,Calculated 123.7 mg/dL (0.0-131.0); Triglycerides 154.00 mg/dL (0.00-149.00); VLDL Calculation 30.80 mg/dL (5.00-40.00)
[2025-02-26] MEDS: ASPIRIN 325 MG TAB PO SCH (09:14)
[2025-02-26 09:39] VITALS: RESP 20
--- NOTE | 2025-02-26 11:16 | P.CRDCN ---
History of Present Illness Consult date: 02/26/25 Consult reason: chest pain History of present illness: This is a 74-year-old male patient of Dr. Hamida Bolden with past medical history of coronary artery disease status post CABG with DAY to LAD, venous graft to diagonal, right coronary artery status post angioplasty with stent placement to the venous graft, diabetic peripheral artery disease, hypertension, COPD. Patient is on maximal medical therapy for angina including nitrates and Ranexa. We have been asked to evaluate the patient for chest pain. Patient had an office visit on 01/30/2025 at that time he was having discomfort of unstable angina. Subsequently, patient was set up for cardiac catheterization which was performed on 02/08/2025 which revealed severe three-vessel coronary artery disease with patent DAY to LAD, patent venous graft to the right coronary artery is a long segment of focal 95% stenosis in its midportion, venous graft to the diagonal was not engaged. Due to patient's chronic kidney disease, he was brought back in the following week under the care of of Dr. Yung and underwent stenting of the mid and proximal SVG to RCA with JE. Patient has been doing fine since the procedures have been performed. Yesterday afternoon he he went up to turn off the fountain in his pond when he was walking back and he developed severe back pain and it went into his left arm. The pain was below his shoulder blades. He states he was sweating profusely due to the severe pain. Blood pressure 126/67, heart rate 62, pulse ox 95% on room air. Patient is seen in the emergency center waiting for a bed on the observation unit. -EKG: Sinus rhythm with no acute ST-T wave changes. -Chest x-ray: No acute findings. -Laboratory studies: WBC 10.1, hemoglobin 1.5, potassium 5.5, BUN 51 creatinine 1.51, troponin negative x 3. Triglycerides 154, cholesterol 184, LDL 127. -Home cardiac medications: Aspirin 81 mg daily, Plavix 75 mg at bedtime, Lasix 20 mg daily, Imdur 30 mg daily, lisinopril 20 mg twice daily, Toprol XL 12.5 mg twice daily, Nitrostat as needed, Ranexa 1000 mg twice daily, Xarelto 2.5 mg twice daily. -Echocardiogram performed on 10/25/2024 revealed left ventricular size borderline normal with segmental wall motion abnormality. EF 50 to 55%. Mild mitral and tricuspid regurgitation with moderate pulmonary hypertension. Review Of Systems: At the time of my exam: CONSTITUTIONAL: Denies fever or chills. HEENT: Denies blurred vision, vision changes, or eye pain. Denies hemoptysis CARDIOVASCULAR: Reports chest pain/back pain. Denies orthopnea. Denies PND. Denies palpitations RESPIRATORY: Denies shortness of breath. GASTROINTESTINAL: Denies abdominal pain. Denies nausea or vomiting. HEMATOLOGIC: Denies bleeding disorders. GENITOURINARY: Denies any blood in urine. SKIN: Denies puritis. Denies rash. Physical examination: Gen: This is 74-year-old male in no acute distress VS: reviewed HEENT: Head is atraumatic, normocephalic. Pupils equal, round. Sclerae is anicteric. NECK: Supple. No JVD. LUNGS: Clear to auscultation. No wheezes or rhonchi. No intercostal retractions. HEART: Regular rate and rhythm. No murmur. + tenderness. ABDOMEN: Soft No tenderness. EXTREMITIES: No pedal edema. No calf tenderness. NEUROLOGICAL: Patient is awake, alert and oriented x3. Assessment: Mid back pain Acute coronary syndrome ruled out History of coronary artery disease with previous CABG and recent stenting of the mid and proximal SVG to RCA on 02/14/2025 Peripheral artery disease Hypertension COPD Plan: Resume patient's home cardiac medications No need to repeat echocardiogram [id number] score from cardiology perspective and will follow-up as planned with Dr. Hamida Sarmiento on 03/08. Thank you kindly for this consultation. Nurse practitioner note has been reviewed, I agree with documented findings and plan of care. Patient was seen and examined. Past Medical History Past Medical History: Coronary Artery Disease (CAD), Chest Pain / Angina, Heart Failure, COPD, Diabetes Mellitus, Hyperlipidemia, Hypertension, Myocardial Infarction ([place]), Osteoarthritis (OA), Renal Disease, Vascular Disorder Additional Past Medical History / Comment(s): chest pain and sob with activity w/ stairs, current O2 sats 92-95% RA @ home, pt follows 60 ounces of fluid per day @ home. Pt anxious regarding O2 admin.(states was given too much O2 w/ last admission & had a lot breathing problems),closely monitors blood sugar tid at home, started with kidney problems October 2024-stated was told that it was from having multipl vascular procedures/surgeries/anesthesia close together, chest discomfort with walking stairs- mld,Hx vertigo in the past Last Myocardial Infarction Date:: History of Any Multi-Drug Resistant Organisms: None Reported Past Surgical History: Appendectomy, Cholecystectomy, Coronary Bypass/CABG, Heart Catheterization, Heart Catheterization With Stent Additional Past Surgical History / Comment(s): aortogram with srinivasa lower ext runoffs,Bilateral carotid endarterectomy, quadruple CABG 2016, 4 cardiac stents, hemmorhoidectomy, procedures to veins in legs,last heartcath 02-08-25 Past Anesthesia/Blood Transfusion Reactions: No Reported Reaction Additional Past Anesthesia/Blood Transfusion Reaction / Comment(s): Vertigo. no known hx of blood transfusion Date of Last Stent Placement:: Past Psychological History: No Psychological Hx Reported Smoking Status: Former smoker Past Alcohol Use History: None Reported Additional Past Alcohol Use History / Comment(s): Quit smoking in 1996, smoked 1ppd for 30 yrs. Past Drug Use History: None Reported - Past Family History Father Family Medical History: Coronary Artery Disease (CAD), Myocardial Infarction ([place]) Mother Family Medical History: Cancer, Renal Disease Brother(s) Family Medical History: Cancer Sister(s) Family Medical History: Cancer Son(s) Family Medical History: Cancer (patient has biological son and a stepson his biological son had thyroid cancer.) Medications and Allergies Home Medications Medication Instructions Recorded Confirmed Type Nitroglycerin Sl Tabs [Nitrostat] 0.4 mg SL Q5M PRN 11/10/22 02/26/25 History Isosorbide Mononitrate ER [Imdur] 30 mg PO DAILY 09/01/24 02/26/25 History Aspirin 81 mg PO DAILY 09/15/24 02/26/25 History Doxazosin [Cardura] 1 mg PO HS 10/25/24 02/26/25 History Fexofenadine HCl [Gayatri Allergy] 180 mg PO DAILY 10/25/24 02/26/25 History Rivaroxaban [Xarelto] 2.5 mg PO BID 10/25/24 02/26/25 History Albuterol Inhaler [Ventolin Hfa 2 puff INHALATION RT-BID 02/07/25 02/26/25 History Inhaler] Furosemide [Lasix] 20 mg PO DAILY 02/07/25 02/26/25 History Insulin Degludec [Tresiba See Protocol SQ HS PRN 02/07/25 02/26/25 History Flextouch U-200 Pen] Metoprolol Succinate (ER) [Toprol 12.5 mg PO BID 02/07/25 02/26/25 History XL] Ranolazine [Ranexa] 1,000 mg PO Q12HR 02/07/25 02/26/25 History Tamsulosin HCl [Flomax] 0.4 mg PO DAILY 02/07/25 02/26/25 History Ubidecarenone [Co Q-10] 100 mg PO DAILY 02/07/25 02/26/25 History gemfibroziL [Lopid] 600 mg PO AC-BID 02/07/25 02/26/25 History lisinopriL [Prinivil] 20 mg PO BID 02/07/25 02/26/25 History Clopidogrel [Plavix] 75 mg PO HS 02/08/25 02/26/25 History Budesonide/Formoterol Fumarate 1 puff INHALATION RT-BID 02/26/25 02/26/25 History [Symbicort 80-4.5 Mcg Inhaler] Allergies Allergy/AdvReac Type Severity Reaction Status Date / Time Penicillins Allergy Unknown Verified 02/26/25 10:21 Childhood Sulfa (Sulfonamide Allergy Rash/Hives Verified 02/26/25 10:21 Antibiotics) Physical Exam Vitals: Vital Signs Temp Pulse Resp BP Pulse Ox 02/26/25 04:46 62 17 126/67 95 02/25/25 20:44 98.9 F 72 17 126/61 96 Intake and Output 02/25/25 02/26/25 02/26/25 22:59 06:59 14:59 Other: Weight 111.13 kg Results 02/25/25 20:38 02/25/25 20:38 Cardiac Enzymes 02/25/25 02/25/25 02/25/25 Range/Units 20:38 20:38 23:37 AST 23 (17-59) U/L Troponin I <0.012 <0.012 (0.000-0.034) ng/mL 02/26/25 Range/Units 02:17 AST (17-59) U/L Troponin I <0.012 (0.000-0.034) ng/mL Coagulation 02/25/25 Range/Units 20:38 PT 12.1 (10.0-12.5) sec APTT 27.7 (22.0-30.0) sec Lipids 02/26/25 Range/Units 02:17 Triglycerides 154.00 H (0.00-149.00) mg/dL Cholesterol 184.00 (0.00-200.00) mg/dL HDL Cholesterol 29.50 L (40.00-60.00) mg/dL Cholesterol/HDL Ratio 6.24 Ratio CBC 02/25/25 Range/Units 20:38 WBC 10.12 H (4.50-10.00) 10*3/uL RBC 3.90 L (4.40-5.60) 10*6/uL Hgb 11.5 L (13.0-17.0) g/dL Hct 36.4 L (39.6-50.0) % Plt Count 361 (140-440) 10*3/uL Comprehensive Metabolic Panel 02/25/25 Range/Units 20:38 Sodium 141 (137-145) mmol/L Potassium 5.5 H (3.5-5.1) mmol/L Chloride 105 (98-107) mmol/L Carbon Dioxide 23 (22-30) mmol/L BUN 51 H (9-20) mg/dL Creatinine 1.51 H (0.66-1.25) mg/dL Glucose 103 H (74-99) mg/dL Calcium 10.5 H (8.4-10.2) mg/dL AST 23 (17-59) U/L ALT 12 (4-49) U/L Alkaline Phosphatase 81 (38-126) U/L Total Protein 7.4 (6.3-8.2) g/dL Albumin 4.1 (3.5-5.0) g/dL Current Medications Generic Name Dose Route Start Last Admin Trade Name Freq PRN Reason Stop Dose Admin Aspirin 325 mg 02/26/25 09:00 Aspirin 325 Mg Tab PO DAILY SANG Clopidogrel Bisulfate 75 mg 02/26/25 00:30 02/26/25 01:26 Clopidogrel 75 Mg Tab PO 75 mg HS SANG Administration Metoprolol Succinate 12.5 mg 02/26/25 00:30 02/26/25 01:26 Metoprolol Succinate (Er) 25 Mg Tab.Er.24h PO 12.5 mg BID [facility] Administration Morphine Sulfate 4 mg 02/25/25 23:21 Morphine Sulfate 4 Mg/Ml Syringe IV Q4HR PRN Chest Pain Nitroglycerin 0.4 mg 02/25/25 23:21 Nitroglycerin Sl Tabs 0.4 Mg Tab SUBLINGUAL Q5M PRN Chest Pain Rivaroxaban 2.5 mg 02/26/25 00:30 02/26/25 04:49 Rivaroxaban 2.5 Mg Tablet PO Not Given BID [facility] Protocol Intake and Output 02/25/25 02/26/25 02/26/25 22:59 06:59 14:59 Other: Weight 111.13 kg 02/25/25 20:38 02/25/25 20:38
[2025-02-26] MEDS ORDERED: NITROGLYCERIN SL TABS 0.4 MG TAB SUBLINGUAL PRN (13:03)
[2025-02-26] MEDS: SYMBICORT 80-4.5 MCG INHALER INHALATION SCH (13:59)
[2025-02-26] MEDS: ALBUTEROL NEBULIZED 2.5 MG/3 ML INHALATION SCH (13:59)
[2025-02-26] MEDS: RANOLAZINE 500 MG TAB.ER.12H PO SCH (14:03)
[2025-02-26] MEDS: TAMSULOSIN 0.4 MG CAP.ER.24H PO SCH (14:03)
[2025-02-26] MEDS: FUROSEMIDE 20 MG TAB PO SCH (14:04)
[2025-02-26] MEDS: LORATADINE 10 MG TAB PO SCH (14:04)
[2025-02-26] MEDS: ISOSORBIDE MONONITRATE ER 30 MG TAB.ER.24H PO SCH (14:04)
[2025-02-26 15:37] VITALS: BP 117/52; PULSE 61; TEMP 98.7
[2025-02-26] MEDS ORDERED: FENOFIBRATE 160 MG TAB PO SCH (17:30)
--- NOTE | 2025-02-26 18:03 | P.HPIM ---
History of Present Illness H&P Date: 02/26/25 Chief Complaint: Chest pain 74-year-old male ., Follows with Dr. David Palomares. Shed Boss Dr. Elza Sarmiento. Chronic medical conditions include COPD, CAD with history of coronary bypass stents, CHF with preserved EF, severe PAD with bilateral lower extremity interventions, chronic kidney disease stage II, essential hypertension, hyperlipidemia, diabetes. Patient has a blocked artery. He is pending further coronary intervention and they are being careful because of his renal function. Yesterday patient was outside. He developed some pain across the back. Arms become bit numb. Had some perspiration became lightheaded. Decided to come in. Symptoms lasted less than 5 minutes. No fever or chills. Appetite is fair. Patient states he had a stress test about 6 months ago that was negative. Troponin negative. Review of systems: GEN.: None EYES: None HEENT: None NECK: None RESPIRATORY: [As above CARDIOVASCULAR: As above GASTROINTESTINAL: None GENITOURINARY: None MUSCULOSKELETAL: None LYMPHATICS: None HEMATOLOGICAL: None PSYCHIATRY: None NEUROLOGICAL: None Social history: . Smoked a pack a day for 30 years stopped in 1996. No alcohol. Physical examination: VITAL SIGNS: [98.9, 67, 20, 155 x 74, 97% room air GENERAL: [BMI 34.2. Resting in bed. EYES: Pupils equal. Conjunctiva nader l. HEENT: External appearance of nose and ears normal, oral cavity grossly normal. NECK: JVD unable to assess masses not palpable. HEART: First and second heart sounds are normal; no edema. LUNGS: Respiratory rate normal; decreased breath sounds. ABDOMEN: Soft, nontender, liver spleen not palpable, no masses palpable. PSYCH: Alert and oriented x3; mood and affect nader l. MUSCULOSKELETAL:No Clubbing/cyanosis;muscles-grossly intact NEUROLOGICAL: Cranial nerves grossly intact; no facial asymmetry, power and sensation grossly intact. LYMPHATICS: No lymph nodes palpable in the axilla and neck INVESTIGATIONS, reviewed in the clinical context: February 25: White count 10.1 hemoglobin 11.5 platelets 361 sodium 141 BUN 51 creatinine 1.51 potassium 5.5 LDL 123.7 Troponin I less than 0.012 x 3 EKG tracing personally reviewed by me-normal sinus rhythm. Chest x-ray film personally reviewed by me-cardiomegaly Previous studies: Kidney bladder ultrasound: Several cysts bilateral. No kidney stone 2D echo [October 2024]: EF 55 to 60%. Moderate left ventricular wall thickness. Moderate pulmonary hypertension. Assessment and plan: - Possible angina in a patient who has a known blocked artery. Is pending intervention. Symptoms only lasted for 5 minutes. Troponins negative. Telemetry. Cardiology consulted -COPD in a previous smoker Symbicort. Albuterol -chronic coronary occlusive disease patient had CABG and multiple stents in the past Aspirin. Plavix. Toprol-XL. Ranexa. Imdur -Chronic congestive heart failure with preserved EF -severe peripheral artery disease with bilateral lower extremity intervention Aspirin. Plavix. Xarelto. Lopid. -Essential hypertension Doxazosin. Toprol-XL. Prinivil. -Hyperlipidemia lopid. CoQ10 -Obesity with BMI of 34.2 Weight loss measures -Type 2 diabetes mellitus: Chronically on insulin Follow Accu-Cheks with sliding scale. Tresiba. This morning patient was seen. Home medications not verified. Did some nurse to do until so that medications could be done. Cardiology consulted. Past Medical History Past Medical History: Coronary Artery Disease (CAD), Chest Pain / Angina, Heart Failure, COPD, Diabetes Mellitus, Hyperlipidemia, Hypertension, Myocardial Infarction ([place]), Osteoarthritis (OA), Renal Disease, Vascular Disorder Additional Past Medical History / Comment(s): chest pain and sob with activity w/ stairs, current O2 sats 92-95% RA @ home, pt follows 60 ounces of fluid per day @ home. Pt anxious regarding O2 admin.(states was given too much O2 w/ last admission & had a lot breathing problems),closely monitors blood sugar tid at home, started with kidney problems October 2024-stated was told that it was from having multipl vascular procedures/surgeries/anesthesia close together, chest discomfort with walking stairs- mld,Hx vertigo in the past Last Myocardial Infarction Date:: History of Any Multi-Drug Resistant Organisms: None Reported Past Surgical History: Appendectomy, Cholecystectomy, Coronary Bypass/CABG, Heart Catheterization, Heart Catheterization With Stent Additional Past Surgical History / Comment(s): aortogram with srinivasa lower ext runoffs,Bilateral carotid endarterectomy, quadruple CABG 2017, 4 cardiac stents, hemmorhoidectomy, procedures to veins in legs,last heartcath 02-08-25 Past Anesthesia/Blood Transfusion Reactions: No Reported Reaction Additional Past Anesthesia/Blood Transfusion Reaction / Comment(s): Vertigo. no known hx of blood transfusion Date of Last Stent Placement:: Past Psychological History: No Psychological Hx Reported Smoking Status: Former smoker Past Alcohol Use History: None Reported Additional Past Alcohol Use History / Comment(s): Quit smoking in 1996, smoked 1ppd for 30 yrs. Past Drug Use History: None Reported - Past Family History Father Family Medical History: Coronary Artery Disease (CAD), Myocardial Infarction ([place]) Mother Family Medical History: Cancer, Renal Disease Brother(s) Family Medical History: Cancer Sister(s) Family Medical History: Cancer Son(s) Family Medical History: Cancer (patient has biological son and a stepson his b iological son had thyroid cancer.) Medications and Allergies Home Medications Medication Instructions Recorded Confirmed Type Nitroglycerin Sl Tabs [Nitrostat] 0.4 mg SL Q5M PRN 11/10/22 02/26/25 History Isosorbide Mononitrate ER [Imdur] 30 mg PO DAILY 09/01/24 02/26/25 History Aspirin 81 mg PO DAILY 09/15/24 02/26/25 History Doxazosin [Cardura] 1 mg PO HS 10/25/24 02/26/25 History Fexofenadine HCl [Gayatri Allergy] 180 mg PO DAILY 10/25/24 02/26/25 History Rivaroxaban [Xarelto] 2.5 mg PO BID 10/25/24 02/26/25 History Albuterol Inhaler [Ventolin Hfa 2 puff INHALATION RT-BID 02/07/25 02/26/25 History Inhaler] Furosemide [Lasix] 20 mg PO DAILY 02/07/25 02/26/25 History Insulin Degludec [Tresiba See Protocol SQ HS PRN 02/07/25 02/26/25 History Flextouch U-200 Pen] Metoprolol Succinate (ER) [Toprol 12.5 mg PO BID 02/07/25 02/26/25 History XL] Ranolazine [Ranexa] 1,000 mg PO Q12HR 02/07/25 02/26/25 History Tamsulosin HCl [Flomax] 0.4 mg PO DAILY 02/07/25 02/26/25 History Ubidecarenone [Co Q-10] 100 mg PO DAILY 02/07/25 02/26/25 History gemfibroziL [Lopid] 600 mg PO AC-BID 02/07/25 02/26/25 History lisinopriL [Prinivil] 20 mg PO BID 02/07/25 02/26/25 History Clopidogrel [Plavix] 75 mg PO HS 02/08/25 02/26/25 History Budesonide/Formoterol Fumarate 1 puff INHALATION RT-BID 02/26/25 02/26/25 History [Symbicort 80-4.5 Mcg Inhaler] Allergies Allergy/AdvReac Type Severity Reaction Status Date / Time Penicillins Allergy Unknown Verified 02/26/25 10:21 Childhood Sulfa (Sulfonamide Allergy Rash/Hives Verified 02/26/25 10:21 Antibiotics) Physical Exam Vitals: Vital Signs Temp Pulse Resp BP Pulse Ox 02/26/25 09:30 67 20 155/74 97 02/26/25 04:46 62 17 126/67 95 02/25/25 20:44 98.9 F 72 17 126/61 96 Intake and Output 02/25/25 02/26/25 02/26/25 22:59 06:59 14:59 Other: Weight 111.13 kg Results CBC & Chem 7: 02/25/25 20:38 02/25/25 20:38 Labs: Abnormal Lab Results - Last 24 Hours (Table) 02/25/25 02/25/25 02/26/25 Range/Units 20:38 20:38 02:17 WBC 10.12 H (4.50-10.00) 10*3/uL RBC 3.90 L (4.40-5.60) 10*6/uL Hgb 11.5 L (13.0-17.0) g/dL Hct 36.4 L (39.6-50.0) % MCHC 31.6 L (32.0-37.0) g/dL MPV 9.1 L (9.5-12.2) fL Immature Gran # 0.16 H (0.00-0.04) 10*3/uL Potassium 5.5 H (3.5-5.1) mmol/L BUN 51 H (9-20) mg/dL Creatinine 1.51 H (0.66-1.25) mg/dL Glucose 103 H (74-99) mg/dL Calcium 10.5 H (8.4-10.2) mg/dL Triglycerides 154.00 H (0.00-149.00) mg/dL HDL Cholesterol 29.50 L (40.00-60.00) mg/dL
--- NOTE | 2025-02-26 18:05 | P.DS ---
Providers Date of admission: 02/25/25 23:21 Expected date of discharge: 02/26/25 Attending physician: Xu Hoang Consults: 02/25/25 23:21 Consult Physician Urgent Consulting Provider: Traci Bell Consult Reason/Comments: cp Do you want consulting provider notified?: Yes [facility]: Chief Complaint: Chest pain 74-year-old male ., Follows with Dr. David Paolmares. Retention Representative Dr. Elza Sarmiento. Chronic medical conditions include COPD, CAD with history of coronary bypass stents, CHF with preserved EF, severe PAD with bilateral lower extremity interventions, chronic kidney disease stage II, essential hypertension, hyperlipidemia, diabetes. Patient has a blocked artery. He is pending further coronary intervention and they are being careful because of his renal function. Yesterday patient was outside. He developed some pain across the back. Arms become bit numb. Had some perspiration became lightheaded. Decided to come in. Symptoms lasted less than 5 minutes. No fever or chills. Appetite is fair. Patient states he had a stress test about 6 months ago that was negative. Troponin negative. Patient was seen by cardiology. Not for any further intervention. 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 Elza Sarmiento. Per cardiology patient underwent recent stenting to the mid and proximal SVG to RCA on February 14, 2025. Review of systems: GEN.: None EYES: None HEENT: None NECK: None RESPIRATORY: [As above CARDIOVASCULAR: As above GASTROINTESTINAL: None GENITOURINARY: None MUSCULOSKELETAL: None LYMPHATICS: None HEMATOLOGICAL: None PSYCHIATRY: None NEUROLOGICAL: None Social history: . Smoked a pack a day for 30 years stopped in 1996. No alcohol. Physical examination: VITAL SIGNS: [98.9, 67, 20, 155 x 74, 97% room air GENERAL: [BMI 34.2. Resting in bed. EYES: Pupils equal. Conjunctiva nader l. HEENT: External appearance of nose and ears normal, oral cavity grossly normal. NECK: JVD unable to assess masses not palpable. HEART: First and second heart sounds are normal; no edema. LUNGS: Respiratory rate normal; decreased breath sounds. ABDOMEN: Soft, nontender, liver spleen not palpable, no masses palpable. PSYCH: Alert and oriented x3; mood and affect nader l. MUSCULOSKELETAL:No Clubbing/cyanosis;muscles-grossly intact NEUROLOGICAL: Cranial nerves grossly intact; no facial asymmetry, power and sensation grossly intact. LYMPHATICS: No lymph nodes palpable in the axilla and neck INVESTIGATIONS, reviewed in the clinical context: February 25: White count 10.1 hemoglobin 11.5 platelets 361 sodium 141 BUN 51 creatinine 1.51 potassium 5.5 LDL 123.7 Troponin I less than 0.012 x 3 EKG tracing personally reviewed by me-normal sinus rhythm. Chest x-ray film personally reviewed by me-cardiomegaly Previous studies: Kidney bladder ultrasound: Several cysts bilateral. No kidney stone 2D echo [October 2024]: EF 55 to 60%. Moderate left ventricular wall thickness. Moderate pulmonary hypertension. Assessment and plan: - Possible angina in a patient who has a known blocked artery. Is pending intervention. Symptoms only lasted for 5 minutes. Troponins negative. Telemetry. stenting to the mid and proximal SVG to RCA on February 14, 2025. Seen by cardiology. ID home. Follow-up with Elza Sarmiento -COPD in a previous smoker Symbicort. Albuterol -chronic coronary occlusive disease patient had CABG and multiple stents in the past Aspirin. Plavix. Toprol-XL. Ranexa. Imdur -Chronic congestive heart failure with preserved EF -severe peripheral artery disease with bilateral lower extremity intervention Aspirin. Plavix. Xarelto. Lopid. -Essential hypertension Doxazosin. Toprol-XL. Prinivil. -Hyperlipidemia lopid. CoQ10 -Obesity with BMI of 34.2 Weight loss measures -Type 2 diabetes mellitus: Chronically on insulin Follow Accu-Cheks with sliding scale. Tresiba. This morning patient was seen. Home medications not verified. Did some nurse to do until so that medications could be done. Cardiology consulted. Past Medical History Past Medical History: Coronary Artery Disease (CAD), Chest Pain / Angina, Heart Failure, COPD, Diabetes Mellitus, Hyperlipidemia, Hypertension, Myocardial Infarction (NM), Osteoarthritis (OA), Renal Disease, Vascular Disorder Additional Past Medical History / Comment(s): chest pain and sob with activity w/ stairs, current O2 sats 92-95% RA @ home, pt follows 60 ounces of fluid per day @ home. Pt anxious regarding O2 admin.(states was given too much O2 w/ last admission & had a lot breathing problems),closely monitors blood sugar tid at home, started with kidney problems October 2024-stated was told that it was from having multipl vascular procedures/surgeries/anesthesia close together, chest discomfort with walking stairs- mld,Hx vertigo in the past Last Myocardial Infarction Date:: History of Any Multi-Drug Resistant Organisms: None Reported Past Surgical History: Appendectomy, Cholecystectomy, Coronary Bypass/CABG, Heart Catheterization, Heart Catheterization With Stent Additional Past Surgical History / Comment(s): aortogram with srinivasa lower ext runoffs,Bilateral carotid endarterectomy, quadruple CABG 2016, 4 cardiac stents, hemmorhoidectomy, procedures to veins in legs,last heartcath 02-08-25 Past Anesthesia/Blood Transfusion Reactions: No Reported Reaction Additional Past Anesthesia/Blood Transfusion Reaction / Comment(s): Vertigo. no known hx of blood transfusion Date of Last Stent Placement:: Past Psychological History: No Psychological Hx Reported Smoking Status: Former smoker Past Alcohol Use History: None Reported Additional Past Alcohol Use History / Comment(s): Quit smoking in 1996, smoked 1ppd for 30 yrs. Past Drug Use History: None Reported Plan - Discharge Summary New Discharge Prescriptions: Continue Nitroglycerin Sl Tabs [Nitrostat] 0.4 mg SL Q5M PRN PRN Reason: Chest Pain Isosorbide Mononitrate ER [Imdur] 30 mg PO DAILY Aspirin 81 mg PO DAILY Ranolazine [Ranexa] 1,000 mg PO Q12HR Metoprolol Succinate (ER) [Toprol XL] 12.5 mg PO BID Furosemide [Lasix] 20 mg PO DAILY gemfibroziL [Lopid] 600 mg PO AC-BID Ubidecarenone [Co Q-10] 100 mg PO DAILY Clopidogrel [Plavix] 75 mg PO HS Budesonide/Formoterol Fumarate [Symbicort 80-4.5 Mcg Inhaler] 1 puff INHALATION RT-BID Doxazosin [Cardura] 1 mg PO HS Fexofenadine HCl [Gayatri Allergy] 180 mg PO DAILY Rivaroxaban [Xarelto] 2.5 mg PO BID Albuterol Inhaler [Ventolin Hfa Inhaler] 2 puff INHALATION RT-BID Insulin Degludec [Tresiba Flextouch U-200 Pen] See Protocol SQ HS PRN PRN Reason: Blood Sugar - High lisinopriL [Prinivil] 20 mg PO BID Tamsulosin HCl [Flomax] 0.4 mg PO DAILY Discharge Medication List Nitroglycerin Sl Tabs [Nitrostat] 0.4 mg SL Q5M PRN 11/10/22 [History] Isosorbide Mononitrate ER [Imdur] 30 mg PO DAILY 09/01/24 [History] Aspirin 81 mg PO DAILY 09/15/24 [History] Doxazosin [Cardura] 1 mg PO HS 10/25/24 [History] Fexofenadine HCl [Gayatri Allergy] 180 mg PO DAILY 10/25/24 [History] Rivaroxaban [Xarelto] 2.5 mg PO BID 10/25/24 [History] Albuterol Inhaler [Ventolin Hfa Inhaler] 2 puff INHALATION RT-BID 02/07/25 [History] Furosemide [Lasix] 20 mg PO DAILY 02/07/25 [History] Insulin Degludec [Tresiba Flextouch U-200 Pen] See Protocol SQ HS PRN 02/07/25 [History] Metoprolol Succinate (ER) [Toprol XL] 12.5 mg PO BID 02/07/25 [History] Ranolazine [Ranexa] 1,000 mg PO Q12HR 02/07/25 [History] Tamsulosin HCl [Flomax] 0.4 mg PO DAILY 02/07/25 [History] Ubidecarenone [Co Q-10] 100 mg PO DAILY 02/07/25 [History] gemfibroziL [Lopid] 600 mg PO AC-BID 02/07/25 [History] lisinopriL [Prinivil] 20 mg PO BID 02/07/25 [History] Clopidogrel [Plavix] 75 mg PO HS 02/08/25 [History] Budesonide/Formoterol Fumarate [Symbicort 80-4.5 Mcg Inhaler] 1 puff INHALATION RT-BID 02/26/25 [History] Follow up Appointment(s)/Referral(s): David Palomares MD [Primary Care Provider] - 1-2 days Tate Sarmiento MD [STAFF PHYSICIAN] - 03/08/25 (Keep appointment on 03/08)
[2025-02-26] MEDS ORDERED: DOXAZOSIN 1 MG TAB PO SCH (21:00)
== END 2025-02-26 18:27 | disposition home or self-care (01) ==
LOC: EC 20:26 → 6NMEDSUR 23:21
PROVIDERS: ADMIT Hospitalist; ATTEND Hospitalist
DX: R07.2 Precordial pain (principal); I25.810 Atherosclerosis of coronary artery bypass graft(s) without angina pectoris; I13.0 Hypertensive heart and chronic kidney disease with heart failure and stage 1 through stage 4 chronic kidney disease, or unspecified chronic kidney disease; I50.32 Chronic diastolic (congestive) heart failure; N18.2 Chronic kidney disease, stage 2 (mild); E11.22 Type 2 diabetes mellitus with diabetic chronic kidney disease; J44.9 Chronic obstructive pulmonary disease, unspecified; E11.51 Type 2 diabetes mellitus with diabetic peripheral angiopathy without gangrene; I27.20 Pulmonary hypertension, unspecified; I08.1 Rheumatic disorders of both mitral and tricuspid valves; E78.5 Hyperlipidemia, unspecified; M54.9 Dorsalgia, unspecified; M79.602 Pain in left arm; E66.9 Obesity, unspecified; Z68.34 Body mass index [BMI] 34.0-34.9, adult; Z79.82 Long term (current) use of aspirin; Z79.01 Long term (current) use of anticoagulants; Z79.51 Long term (current) use of inhaled steroids; Z79.02 Long term (current) use of antithrombotics/antiplatelets; Z79.899 Other long term (current) drug therapy; Z88.0 Allergy status to penicillin; Z88.2 Allergy status to sulfonamides; Z87.891 Personal history of nicotine dependence; Z95.1 Presence of aortocoronary bypass graft; Z95.5 Presence of coronary angioplasty implant and graft
CPT/HCPCS: 99291; 36415; 94640; 93005; 80061; 80053; 83605; 83735; 84100; 84484 ×2; 85025; 85610; 85730; 71046; G0378 ×2